=== PATIENT | female | born 1965 | race Caucasian/White ===

== ENCOUNTER → 2020-02-14 13:40 | Outpatient (BNVA) | payer OTHER, SELFPAY | PROVIDERS: PCP Internal Medicine; Referring Provider Internal Medicine; Visit Provider Urology | DX: Z76.89 Persons encountering health services in other specified circumstances (principal) ==

== ENCOUNTER → 2020-09-04 09:52 | Outpatient (BNVA) | payer OTHER, SELFPAY | PROVIDERS: PCP Internal Medicine; Visit Provider Urology | DX: N20.0 Calculus of kidney (principal); N12 Tubulo-interstitial nephritis, not specified as acute or chronic | CPT/HCPCS: 99212 ==

== ENCOUNTER 2021-07-29 14:59 | Emergency (ER) | payer OTHER, SELFPAY ==
--- NOTE | 2021-07-29 | ECG_ITS ---
Test Reason : chest pain Blood Pressure : / mmHG Vent. Rate : 116 BPM Atrial Rate : 116 BPM P-R Int : 154 ms QRS Dur : 092 ms QT Int : 328 ms P-R-T Axes : 065 108 021 degrees QTc Int : 455 ms Sinus tachycardia Possible Left atrial enlargement Rightward axis Incomplete right bundle branch block Cannot rule out Anterior infarct , age undetermined Abnormal ECG When compared with ECG of 30-DEC-2019 20:30, Incomplete right bundle branch block has replaced Right bundle branch block Minimal criteria for Anterior infarct are now Present Referred By: Sumeet Romeo Electronically Signed By:CAREY MCCLURE
--- NOTE | ~2021-07-29 | CT_ITS ---
EXAMINATION: CT HEAD WITHOUT CONTRAST CLINICAL INFORMATION: Blurred vision and weakness. COMPARISON: CT head dated from 09/18/2014. TECHNIQUE: Contiguous axial imaging was performed from the skull base to vertex without intravenous administration of contrast. This CT examination was performed using dose optimization techniques as appropriate, variously including the following: *Automated exposure control *Adjustment of mA and/or kV according to patient size (this includes techniques or standardized protocols for targeted exams where dose is matched to indication/reason for exam; i.e. extremities or head) *Use of iterative reconstruction technique DLP: 718 mGy-cm FINDINGS: There is no evidence of acute intracranial hemorrhage or edematous territorial infarction. There is no abnormal attenuation within the brain parenchyma. Marcum-white matter differentiation is preserved. The ventricles are normal in size and configuration. No evidence for obstructive hydrocephalus. No abnormal mass effect or midline shift. No extra-axial fluid collections. No acute soft tissue or osseous abnormalities. Mucosal thickening of the right sphenoidal sinus and some ethmoid air cells. No air-fluid level. The mastoids and middle ear cavities are clear. CT/CT head/brain wo con IMPRESSION: No evidence of acute intracranial hemorrhage or edematous territorial infarction.
--- NOTE | ~2021-07-29 | XR_ITS ---
EXAMINATION: XR CHEST CLINICAL INFORMATION: Shortness of breath COMPARISON: December 30, 2019 TECHNIQUE: AP portable view of the chest was obtained. FINDINGS: There is a region of discoid atelectasis or scarring seen within the mid left lung. No confluent pneumonitis identified. No pneumothorax or pleural effusion. Heart normal size. No evidence of pulmonary edema. XR/XR chest 1V IMPRESSION: No significant acute parenchymal disease.
[2021-07-29 15:16] VITALS: BP 140/94; PULSE 120; RESP 16; TEMP 36.9; O2SAT 88; BMI 35.2
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
--- NOTE | 2021-07-29 15:52 | ECG_ITS ---
Test Reason : CHEST PAIN Blood Pressure : / mmHG Vent. Rate : 091 BPM Atrial Rate : 091 BPM P-R Int : 192 ms QRS Dur : 098 ms QT Int : 378 ms P-R-T Axes : 051 103 029 degrees QTc Int : 464 ms Normal sinus rhythm Possible Left atrial enlargement Rightward axis Incomplete right bundle branch block Cannot rule out Anterior infarct (cited on or before 29-JUL-2021) Abnormal ECG When compared with ECG of 29-JUL-2021 15:21, No significant change was found Referred By: Steve Contrears Electronically Signed By:CAREY MCCLURE
[2021-07-29 16:26] LABS: Glucose, Whole Blood 115 mg/dL (60-115)
[2021-07-29 16:26] LABS: MANUAL DIFF FLAG NO
[2021-07-29 16:30] LABS: Basophils Absolute Auto 0.1 X10*3/uL (0.0-0.2); Basophils Percent Auto 0.8 % (0-2); Eosinophils Absolute Auto 0.1 X10*3/uL (0.0-0.4); Eosinophils Percent Auto 0.7 % (0-4); Hematocrit 54.3 % (37.0-47.0); Hemoglobin 16.9 g/dl (12.0-16.0); Imm Gran Abs Auto 0.02 X10*3/uL (0.00-0.03); Imm Gran Pct Auto 0.3 % (0.0-0.4); Lymphocytes Absolute Auto 1.4 X10*3/uL (1.2-4.9); Lymphocytes Percent Auto 19.9 % (20-40); Mean Corpuscular HGB Conc 31.1 g/dl (31.0-35.0); Mean Corpuscular Hemoglobin 28.2 pg (27.0-33.0); Mean Corpuscular Volume 90.5 fL (80.0-98.0); Monocytes Absolute Auto 0.3 X10*3/uL (0.1-1.2); Monocytes Percent Auto 3.7 % (2-11); Neutrophils Absolute Auto 5.3 x10*3/uL (2.0-8.3); Neutrophils Percent Auto 74.6 % (45-73); Platelet Count 143 X10*3/uL (160-400); Red Cell Distribution Width 19.7 % (11.0-16.0); White Blood Count 7.1 X10*3/uL (4.8-10.8)
[2021-07-29 16:40] LABS: Ethanol 220 mg/dL
[2021-07-29 16:42] LABS: COVID-19 Test Negative (Negative); IDNOW Serial# 16C4AD1C
[2021-07-29 16:43] LABS: Alanine Aminotransferase 108 U/L (0-31); Albumin Level 3.7 g/dL (3.5-5.0); Alkaline Phosphatase 152 U/L (39-117); Anion Gap 14 (12-20); Aspartate Amino Transferase 290 U/L (5-31); Bilirubin Total 2.4 mg/dL (0.0-1.0); Blood Urea Nitrogen 18 mg/dL (9-16); Calcium 8.7 mg/dL (8.4-10.2); Carbon Dioxide 32 mmol/L (22-29); Chloride 97 mmol/L (96-108); Creatinine Clr Calc Pharmacy 79.1; Estimated Glomerular Filt Rate > 60; Glucose Random 105 mg/dL (60-115); Magnesium 1.7 mg/dL (1.6-2.6); Potassium 4.6 mmol/L (3.3-5.1); Sodium 138 mmol/L (135-145); Total Protein 8.1 g/dL (6.5-8.0)
[2021-07-29 16:45] LABS: Troponin-I High Sensitivity 6.5 ng/L (<3.5-17.0)
[2021-07-29] MEDS: 0.9 % Sodium Chloride 1,000 ML 999 ML IV (17:05)
[2021-07-29 17:19] VITALS: BP 170/94; PULSE 101; RESP 18; TEMP 36.6; O2SAT 94
[2021-07-29] MEDS: amLODIPine Besylate 5 MG TABLET PO (18:41)
[2021-07-29] MEDS: LORazepam 2 MG/ML VIAL 1 MG IVPUSH (18:41)
[2021-07-29 19:17] VITALS: BP 161/86; PULSE 89; RESP 12; TEMP 36.7; O2SAT 90
[2021-07-29 20:06] VITALS: PULSE 98; RESP 14; O2SAT 94
[2021-07-29] MEDS: Albuterol Sulfate (0.083%) 2.5 MG/3 ML VIAL.NEB INHALE (20:06)
[2021-07-29 21:31] LABS: Glucose, Whole Blood 97 mg/dL (60-115)
== END 2021-07-29 22:06 | disposition left against medical advice (07) ==
PROVIDERS: Physician Assistant; Emergency Provider Emergency Medicine; PCP Internal Medicine
DX: R07.89 Other chest pain (principal); T76.11XA Adult physical abuse, suspected, initial encounter; G44.309 Post-traumatic headache, unspecified, not intractable; F10.129 Alcohol abuse with intoxication, unspecified; Y90.7 Blood alcohol level of 200-239 mg/100 ml; Z20.822 Contact with and (suspected) exposure to COVID-19; Z79.899 Other long term (current) drug therapy
CPT/HCPCS: 36415; 70450; 71045; 80053; 82077; 82947; 83735; 84484; 85025; 87635; 93005; 94640; 96361; 96374; 99284; J2060

== ENCOUNTER 2021-09-24 18:29 | Outpatient (REF) | payer OTHER, SELFPAY ==
[2021-09-24 18:39] LABS: Appearance Urine CLEAR; Color Urine YELLOW; Glucose Urine UA NEG (NEG); Leukocyte Esterase Urine TRACE (NEG); Nitrite Urine POS (NEG); PH 5.5 (5.0-8.0); Specific Gravity - Urine <= 1.005 (1.005-1.025); UACC Culture Trigger YES; Urine Blood NEG (NEG); Urine Ketones NEG (NEG); Urine Protein NEG (NEG-TRACE)
[2021-09-24 18:44] LABS: RBC Urine 0 /HPF (0); Squamous Epithelial Cell Urine 1+ /LPF
[2021-09-24 18:45] LABS: Bacteria Urine 3+ /LPF
== END 2021-09-24 18:30 | disposition home or self-care (01) ==
LOC: HO.LNP 18:29
PROVIDERS: Visit Provider Nurse Practitioner Family
DX: I10 Essential (primary) hypertension (principal); I86.8 Varicose veins of other specified sites; N39.0 Urinary tract infection, site not specified; I82.890 Acute embolism and thrombosis of other specified veins
CPT/HCPCS: 81001; 87086; 87088; 87186

== ENCOUNTER 2022-02-01 14:42 | Inpatient (IN) | payer OTHER, SELFPAY ==
--- NOTE | ~2022-02-01 | CT_ITS ---
EXAMINATION: CT SOFT TISSUE NECK WITHOUT CONTRAST CLINICAL INFORMATION: Abnormal exam. Lightheadedness. Headache. Question mass. COMPARISON: CT scan of the head 02/04/2022. TECHNIQUE: Helical imaging was performed in the axial plane with generation of coronal and sagittal reformatted images. This CT examination was performed using dose optimization techniques as appropriate, variously including the following: *Automated exposure control *Adjustment of mA and/or kV according to patient size (this includes techniques or standardized protocols for targeted exams where dose is matched to indication/reason for exam; i.e. extremities or head) *Use of iterative reconstruction technique DLP: 1131 mGy-cm FINDINGS: The diagnostic accuracy of this examination is is somewhat limited due to the absence of intravenous contrast. Pharyngeal mucosal spaces are symmetric. Parapharyngeal and retromaxillary fat is preserved. Army Ranger spaces are symmetric. The parotid and submandibular glands are normal. The tongue base and epiglottis are normal. Preepiglottic fat is preserved. Glottic and subglottic airways are patent. The thyroid gland is normal. The remainder of the visualized visceral soft tissues are normal. There are no pathologically enlarged cervical lymph nodes. No mediastinal or axillary adenopathy is visualized within the [id number] of this examination. Lung apices are clear. There is atheromatous calcification of both carotid bifurcations. Carotid spaces are otherwise unremarkable. There is no acute osseous finding. Specifically no worrisome lytic or blastic osseous lesion. The skull base is intact. No mastoid middle ear effusion. No active paranasal sinus disease. There is a perforation of the membranous nasal septum. Limited visualization of the intracranial anatomy reveals no abnormal finding. CT/CT soft tissue neck wo IV con IMPRESSION: The diagnostic accuracy of this examination is somewhat limited due to the absence of intravenous contrast. There is no identifiable soft tissue mass or adenopathy. Scattered atheromatous calcification involves both carotid bifurcations. 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
--- NOTE | ~2022-02-01 | CT_ITS ---
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 COMPARISON: None TECHNIQUE: Contiguous axial imaging was performed from the skull base to vertex without intravenous administration of contrast. This CT examination was performed using dose optimization techniques as appropriate, variously including the following: *Automated exposure control *Adjustment of mA and/or kV according to patient size (this includes techniques or standardized protocols for targeted exams where dose is matched to indication/reason for exam; i.e. extremities or head) *Use of iterative reconstruction technique DLP: 1131 mGy-cm FINDINGS: There is no acute intra-axial, extra-axial bleed, masses, collection or midline shift. There is no acute infarction in evolution. There is no edema. The lateral ventricles are symmetrical in size and configuration without enlargement. The cortical sulci are symmetrical and normal. Bone windows reveal no calvarial abnormality. Bilateral paranasal sinuses and mastoid air cells are well-aerated. CT/CT head/brain wo IV con IMPRESSION: No acute intracranial process seen.
[2022-02-01 14:47] VITALS: BP 142/86; PULSE 120; O2SAT 16
[2022-02-01 14:50] VITALS: BP 156/99; PULSE 100; RESP 18; TEMP 37.2; O2SAT 95; BMI 25.7
--- NOTE | 2022-02-01 14:55 | ECG_ITS ---
Test Reason : n/v Blood Pressure : / mmHG Vent. Rate : 103 BPM Atrial Rate : 103 BPM P-R Int : 158 ms QRS Dur : 134 ms QT Int : 384 ms P-R-T Axes : 079 099 020 degrees QTc Int : 503 ms Sinus tachycardia Possible Left atrial enlargement Right bundle branch block Abnormal ECG When compared with ECG of 29-JUL-2021 16:04, Right bundle branch block has replaced Incomplete right bundle branch block Minimal criteria for Anterior infarct are no longer Present Referred By: Generic ED Physician Electronically Signed By:ROSENDO MATHIS
[2022-02-01 15:17] LABS: MANUAL DIFF FLAG NO
[2022-02-01 15:19] LABS: Basophils Percent Auto 0.4 % (0-2); Eosinophils Percent Auto 0.3 % (0-4); Hemoglobin 15.1 g/dl (12.0-16.0); Imm Gran Abs Auto 0.03 X10*3/uL (0.00-0.03); Imm Gran Pct Auto 0.4 % (0.0-0.4); Lymphocytes Absolute Auto 1.3 X10*3/uL (1.2-4.9); Lymphocytes Percent Auto 18.8 % (20-40); Mean Corpuscular HGB Conc 31.5 g/dl (31.0-35.0); Mean Corpuscular Hemoglobin 26.7 pg (27.0-33.0); Mean Platelet Volume 10.2 fL (9.4-12.3); Monocytes Absolute Auto 0.3 X10*3/uL (0.1-1.2); Monocytes Percent Auto 4.8 % (2-11); Neutrophils Absolute Auto 5.3 x10*3/uL (2.0-8.3); Neutrophils Percent Auto 75.3 % (45-73); Platelet Count 174 X10*3/uL (160-400); Red Blood Count 5.65 X10*6/uL (4.20-5.50); Red Cell Distribution Width 17.2 % (11.0-16.0); White Blood Count 7.1 X10*3/uL (4.8-10.8)
[2022-02-01 15:32] LABS: Ethanol < 10 mg/dL
[2022-02-01 15:35] LABS: Alanine Aminotransferase 19 U/L (0-31); Albumin Level 4.4 g/dL (3.5-5.0); Alkaline Phosphatase 90 U/L (39-117); Anion Gap 18 (12-20); Aspartate Amino Transferase 21 U/L (5-31); Bilirubin Direct 0.3 mg/dL (0.0-0.5); Bilirubin Total 0.9 mg/dL (0.0-1.0); Blood Urea Nitrogen 10 mg/dL (9-16); Calcium 10.1 mg/dL (8.4-10.2); Carbon Dioxide 30 mmol/L (22-29); Chloride 92 mmol/L (96-108); Creatinine Clr Calc Pharmacy 69.6; Estimated Glomerular Filt Rate > 60; Glucose Random 130 mg/dL (60-115); Lipase 7 U/L (8-78); Potassium 3.9 mmol/L (3.3-5.1); Sodium 136 mmol/L (135-145); Total Protein 8.1 g/dL (6.5-8.0)
[2022-02-01 15:38] LABS: Troponin-I High Sensitivity 4.1 ng/L (<3.5-17.0)
[2022-02-01 15:52] LABS: COVID-19 Test Negative (Negative); IDNOW Serial# 9DB6401D
[2022-02-01 20:22] VITALS: BP 172/96; PULSE 84; RESP 18; TEMP 36.1; O2SAT 96
--- NOTE | 2022-02-01 21:34 | ED.ABDPAIN ---
HPI - Abdominal Pain General Chief Complaint: Abdominal Pain Stated Complaint: NAUSEA,VOMITING,DIZZY,SOB PER EMS Time Seen by Provider: 02/01/22 21:30 Source: patient History of Present Illness HPI narrative: Patient with severe anxiety multiple ED visits for nausea vomiting abdominal pain was at [facility] 3 days ago comes here with increased anxiety complaining of same nausea and vomiting says that is because of anxiety she gets problems and she feels her anxiety causing this problem as was told in the past with multiple workups after arrival patient says she does not feel safe to go home and would like to see therapist no fever no urinary complaint Related Data Home Medications Medication Instructions Recorded Confirmed lorazepam 2 mg tablet 2 mg PO BID PRN anxiety attack 09/24/21 09/24/21 pantoprazole 40 mg tablet,delayed 40 mg PO DAILY 09/24/21 09/24/21 release Previous Rx's Medication Instructions Recorded albuterol sulfate 2.5 mg/3 mL 2.5 mg (3 mL) inhalation Q4-6H PRN 10/04/20 (0.083 %) solution for nebulization shortness of breath or wheezing 30 days #180 mL Oxygen Home Use #1 ea 11/26/20 miscellaneous medical supply 12 ea miscellaneous .COMPLEX #12 ea 11/26/20 gabapentin 800 mg tablet 800 mg PO TID #90 tabs 09/12/21 ondansetron 4 mg disintegrating 4 mg PO Q8H PRN nausea and 09/22/21 tablet vomiting #30 tabs nebulizers (Altera Nebulizer #1 ea 09/28/21 System) pulse oximeter #1 ea 09/28/21 levofloxacin 750 mg tablet 750 mg PO DAILY 5 days #5 tabs 09/30/21 cane #1 ea 10/16/21 ipratropium 0.5 mg-albuterol 3 mg 3 ml inhalation Q4H PRN shortness 10/27/21 (2.5 mg base)/3 mL nebulization of breath or wheezing 30 days #360 soln mL sulfamethoxazole 800 1 tab PO BID #10 tabs 10/27/21 mg-trimethoprim 160 mg tablet (Bactrim DS) amlodipine 5 mg tablet 5 mg PO DAILY #30 tabs 11/04/21 aspirin 81 mg tablet,delayed 81 mg PO DAILY #30 tabs 11/04/21 release ergocalciferol (vitamin D2) 1,250 1,250 mcg PO QWEEK 4 weeks #4 caps 11/04/21 mcg (50,000 unit) capsule nicotine 21 mg/24 hr daily 1 patch transdermal DAILY #28 ea 11/17/21 transdermal patch sulfamethoxazole 800 1 tab PO BID 3 days #6 tabs 01/09/22 mg-trimethoprim 160 mg tablet (Bactrim DS) mirtazapine 15 mg tablet 7.5 mg PO BEDTIME #90 tabs 01/19/22 albuterol sulfate 90 mcg/actuation 2 puff PO Q4H PRN for wheezing 01/21/22 aerosol inhaler (ProAir HFA) #8.5 ea albuterol sulfate 90 mcg/actuation 2 puff inhalation Q4H PRN 01/27/22 aerosol inhaler bronchospasm #18 grams Allergies Allergy/AdvReac Type Severity Reaction Status Date / Time acetaminophen [Vicodin] Allergy Unknown Unknown Verified 09/24/21 15:13 hydrocodone [Vicodin] Allergy Unknown Unknown Verified 09/24/21 15:13 sumatriptan [From IMITREX] Allergy Unknown VOMITING,RA Verified 09/24/21 15:13 Review of Systems Review of Systems Yes all other systems are reviewed and are negative [facility] Past Medical History Medical History Anxiety COPD (chronic obstructive pulmonary disease) Depression Diabetes Hypertension Surgical History H/O wrist surgery Family History Family History Father No problems noted. Mother Diabetes Social History Social History Housing: Apartment Alcohol intake: current Alcohol intake frequency: a few times a month Patient Tobacco Use Status: Current everyday Tobacco user Tobacco use type: Cigarette Cigarettes Per Day: 3 Smoked in Last 30 Days: Yes e-Cigarette/Vaping Use: Never Used Second Hand Smoke Exposure: No Use of substances other than those prescribed or required for medical reasons: No Advance Directives: No Advance Directives Information Provided: No service: No Current occupational status: disabled Cognitive needs: No Hearing needs: No Vision needs: No Physical Exam ED Vital Signs: Vital Signs - 24 hr 02/01/22 14:50 02/01/22 20:22 02/01/22 22:43 Temperature 98.9 F 96.9 F 97.5 F Pulse Rate 100 84 106 H Respiratory Rate 18 18 20 Blood Pressure 156/99 H 172/96 H 152/97 H Pulse Oximetry 95 96 97 Oxygen Delivery Method Room Air Room Air Room Air 02/02/22 00:05 Temperature 98.3 F Pulse Rate 73 Respiratory Rate 15 Blood Pressure 150/73 H Pulse Oximetry 91 L Oxygen Delivery Method Room Air BMI result Body Mass Index 25.7 Appearance: Alert. Oriented X3. No acute distress. Anxious Eyes: PERRLA, No Nystagmus ENT: Pharynx normal. Oral Mucosa moist Neck: Normal inspection. Neck supple. CVS: Normal heart rate and rhythm. Pulses normal. Respiratory: No respiratory distress. Equal air entry bilateral, no wheezing/rales/rhonchi Abdomen: Soft and nontender. Bowel sounds are present, no mass palpable, no CVA tenderness Skin: Skin warm and dry. Normal skin color. Normal skin turgor. Extremities: No lower extremity edema. No calf tenderness psych: Patient very anxious does not feel safe at home , feels suicidal without any plan no hallucinations or delusions Neuro: Oriented X 3. No motor deficit. No sensory deficit.No cerebellar signs , cranial nerves II-XII intact MDM - Abdominal Pain MDM Narrative Medical decision making narrative: 1 am Patient with multiple complaints very anxious asking for help feels suicidal at home we will get care team to evaluate the patient. Urine positive for cocaine and THC Lab Data Attestation: I reviewed the patient's lab results. Result diagrams: 02/01/22 15:11 02/01/22 15:11 Labs: Lab Results 02/01/22 02/01/22 02/01/22 Range/Units 15:11 15:11 15:11 WBC 7.1 (4.8-10.8) X10*3/uL RBC 5.65 H (4.20-5.50) X10*6/uL Hgb 15.1 (12.0-16.0) g/dl Hct 48.0 H (37.0-47.0) % MCV 85.0 (80.0-98.0) fL MCH 26.7 L (27.0-33.0) pg MCHC 31.5 (31.0-35.0) g/dl RDW 17.2 H (11.0-16.0) % Plt Count 174 (160-400) X10*3/uL MPV 10.2 (9.4-12.3) fL Immature Gran % (Auto) 0.4 (0.0-0.4) % Neut % (Auto) 75.3 H (45-73) % Lymph % (Auto) 18.8 L (20-40) % [place] % (Auto) 4.8 (2-11) % Eos % (Auto) 0.3 (0-4) % Baso % (Auto) 0.4 (0-2) % Lymph # (Auto) 1.3 (1.2-4.9) X10*3/uL [place] # (Auto) 0.3 (0.1-1.2) X10*3/uL Eos # (Auto) 0.0 (0.0-0.4) X10*3/uL Baso # (Auto) 0.0 (0.0-0.2) X10*3/uL Abs Immat Gran (auto) 0.03 (0.00-0.03) X10*3/uL Absolute Neuts (auto) 5.3 (2.0-8.3) x10*3/uL Absolute Nucleated RBC 0.000 (0.0-0.012) X10*3/uL Nucleated RBC % (auto) 0.0 (0.0-0.2) /100WBC Sodium 136 (135-145) mmol/L Potassium 3.9 (3.3-5.1) mmol/L Chloride 92 L (96-108) mmol/L Carbon Dioxide 30 H (22-29) mmol/L Anion Gap 18 (12-20) BUN 10 (9-16) mg/dL Creatinine 0.76 (0.5-1.4) mg/dL Estim Creat Clear Calc 69.6 Estimated GFR > 60 Random Glucose 130 H (60-115) mg/dL Calcium 10.1 D (8.4-10.2) mg/dL Total Bilirubin 0.9 (0.0-1.0) mg/dL Direct Bilirubin 0.3 (0.0-0.5) mg/dL AST 21 D (5-31) U/L ALT 19 (0-31) U/L Alkaline Phosphatase 90 D (39-117) U/L Troponin I High Sens (<3.5-17.0) ng/L Total Protein 8.1 H (6.5-8.0) g/dL Albumin 4.4 (3.5-5.0) g/dL Lipase 7 L (8-78) U/L Urine Color Urine Appearance Urine pH (5.0-9.0) Ur Specific [place] (1.005-1.025) Urine Protein (Neg-Trace) mg/dL Urine Glucose (UA) (Negative) mg/dL Urine Ketones (Negative) mg/dL Urine Blood (Negative) Urine Nitrite (Negative) Ur Leukocyte Esterase (Negative) Urine RBC (0-2) /HPF Urine WBC (0-5) /HPF Ur Squamous Epith Cells (0-2) /HPF Urine Bacteria (None Seen) Hyaline Casts (0-2) /LPF Urine Opiates Screen (Not Detect) Urine Fentanyl Screen (Not Detect) Ur Barbiturates Screen (Not Detect) Ur Phencyclidine Scrn (Not Detect) Ur Amphetamines Screen (Not Detect) U Benzodiazepines Scrn (Not Detect) Urine Cocaine Screen (Not Detect) U Marijuana (THC) Screen (Not Detect) Ethyl Alcohol mg/dL COVID-19 ([facility]STIAN) Negative (Negative) COVID-19 Clin Com See Note 02/01/22 02/01/22 02/01/22 Range/Units 15:11 15:11 22:58 WBC (4.8-10.8) X10*3/uL RBC (4.20-5.50) X10*6/uL Hgb (12.0-16.0) g/dl Hct (37.0-47.0) % MCV (80.0-98.0) fL MCH (27.0-33.0) pg MCHC (31.0-35.0) g/dl RDW (11.0-16.0) % Plt Count (160-400) X10*3/uL MPV (9.4-12.3) fL Immature Gran % (Auto) (0.0-0.4) % Neut % (Auto) (45-73) % Lymph % (Auto) (20-40) % [place] % (Auto) (2-11) % Eos % (Auto) (0-4) % Baso % (Auto) (0-2) % Lymph # (Auto) (1.2-4.9) X10*3/uL [place] # (Auto) (0.1-1.2) X10*3/uL Eos # (Auto) (0.0-0.4) X10*3/uL Baso # (Auto) (0.0-0.2) X10*3/uL Abs Immat Gran (auto) (0.00-0.03) X10*3/uL Absolute Neuts (auto) (2.0-8.3) x10*3/uL Absolute Nucleated RBC (0.0-0.012) X10*3/uL Nucleated RBC % (auto) (0.0-0.2) /100WBC Sodium (135-145) mmol/L Potassium (3.3-5.1) mmol/L Chloride (96-108) mmol/L Carbon Dioxide (22-29) mmol/L Anion Gap (12-20) BUN (9-16) mg/dL Creatinine (0.5-1.4) mg/dL Estim Creat Clear Calc Estimated GFR Random Glucose (60-115) mg/dL Calcium (8.4-10.2) mg/dL Total Bilirubin (0.0-1.0) mg/dL Direct Bilirubin (0.0-0.5) mg/dL AST (5-31) U/L ALT (0-31) U/L Alkaline Phosphatase (39-117) U/L Troponin I High Sens 4.1 (<3.5-17.0) ng/L Total Protein (6.5-8.0) g/dL Albumin (3.5-5.0) g/dL Lipase (8-78) U/L Urine Color Yellow Urine Appearance Clear Urine pH 6.0 (5.0-9.0) Ur Specific [place] 1.015 (1.005-1.025) Urine Protein Negative (Neg-Trace) mg/dL Urine Glucose (UA) Negative (Negative) mg/dL Urine Ketones Trace (Negative) mg/dL Urine Blood Negative (Negative) Urine Nitrite Negative (Negative) Ur Leukocyte Esterase Trace H (Negative) Urine RBC 0-2 (0-2) /HPF Urine WBC 0-5 (0-5) /HPF Ur Squamous Epith Cells 6-10 (0-2) /HPF Urine Bacteria None Seen (None Seen) Hyaline Casts 0-2 (0-2) /LPF Urine Opiates Screen (Not Detect) Urine Fentanyl Screen (Not Detect) Ur Barbiturates Screen (Not Detect) Ur Phencyclidine Scrn (Not Detect) Ur Amphetamines Screen (Not Detect) U Benzodiazepines Scrn (Not Detect) Urine Cocaine Screen (Not Detect) U Marijuana (THC) Screen (Not Detect) Ethyl Alcohol < 10 mg/dL COVID-19 ([facility]) (Negative) COVID-19 Clin Com 02/01/22 Range/Units 22:58 WBC (4.8-10.8) X10*3/uL RBC (4.20-5.50) X10*6/uL Hgb (12.0-16.0) g/dl Hct (37.0-47.0) % MCV (80.0-98.0) fL MCH (27.0-33.0) pg MCHC (31.0-35.0) g/dl RDW (11.0-16.0) % Plt Count (160-400) X10*3/uL MPV (9.4-12.3) fL Immature Gran % (Auto) (0.0-0.4) % Neut % (Auto) (45-73) % Lymph % (Auto) (20-40) % [place] % (Auto) (2-11) % Eos % (Auto) (0-4) % Baso % (Auto) (0-2) % Lymph # (Auto) (1.2-4.9) X10*3/uL [place] # (Auto) (0.1-1.2) X10*3/uL Eos # (Auto) (0.0-0.4) X10*3/uL Baso # (Auto) (0.0-0.2) X10*3/uL Abs Immat Gran (auto) (0.00-0.03) X10*3/uL Absolute Neuts (auto) (2.0-8.3) x10*3/uL Absolute Nucleated RBC (0.0-0.012) X10*3/uL Nucleated RBC % (auto) (0.0-0.2) /100WBC Sodium (135-145) mmol/L Potassium (3.3-5.1) mmol/L Chloride (96-108) mmol/L Carbon Dioxide (22-29) mmol/L Anion Gap (12-20) BUN (9-16) mg/dL Creatinine (0.5-1.4) mg/dL Estim Creat Clear Calc Estimated GFR Random Glucose (60-115) mg/dL Calcium (8.4-10.2) mg/dL Total Bilirubin (0.0-1.0) mg/dL Direct Bilirubin (0.0-0.5) mg/dL AST (5-31) U/L ALT (0-31) U/L Alkaline Phosphatase (39-117) U/L Troponin I High Sens (<3.5-17.0) ng/L Total Protein (6.5-8.0) g/dL Albumin (3.5-5.0) g/dL Lipase (8-78) U/L Urine Color Urine Appearance Urine pH (5.0-9.0) Ur Specific [place] (1.005-1.025) Urine Protein (Neg-Trace) mg/dL Urine Glucose (UA) (Negative) mg/dL Urine Ketones (Negative) mg/dL Urine Blood (Negative) Urine Nitrite (Negative) Ur Leukocyte Esterase (Negative) Urine RBC (0-2) /HPF Urine WBC (0-5) /HPF Ur Squamous Epith Cells (0-2) /HPF Urine Bacteria (None Seen) Hyaline Casts (0-2) /LPF Urine Opiates Screen Not Detected (Not Detect) Urine Fentanyl Screen POSITIVE H (Not Detect) Ur Barbiturates Screen Not Detected (Not Detect) Ur Phencyclidine Scrn Not Detected (Not Detect) Ur Amphetamines Screen Not Detected (Not Detect) U Benzodiazepines Scrn Not Detected (Not Detect) Urine Cocaine Screen POSITIVE H (Not Detect) U Marijuana (THC) Screen POSITIVE H (Not Detect) Ethyl Alcohol mg/dL COVID-19 ([facility]STIAN) (Negative) COVID-19 Clin Com Discharge Plan Discharge Clinical Impression: Anxiety, Cocaine abuse, Feeling suicidal Patient Disposition: Still a Patient Prescriptions: No Action albuterol sulfate 2.5 mg /3 mL (0.083 %) solution for nebulization 2.5 mg inhalation Q4-6H PRN (Reason: shortness of breath or wheezing) 30 Days Qty: 180 0RF gabapentin 800 mg tablet 800 mg PO TID Qty: 90 8RF ondansetron 4 mg tablet,disintegrating 4 mg PO Q8H PRN (Reason: nausea and vomiting) Qty: 30 0RF Hold Instructions: on levofloxacin levofloxacin 750 mg tablet 750 mg PO DAILY 5 Days Qty: 5 0RF (DME) cane Device See Rx Instructions .Route Qty: 1 0RF Rx Instructions: As directed sulfamethoxazole-trimethoprim [Bactrim DS] 800-160 mg tablet 1 tab PO BID Qty: 10 0RF ipratropium-albuterol 0.5 mg-3 mg(2.5 mg base)/3 mL solution for nebulization 3 ml inhalation Q4H PRN (Reason: shortness of breath or wheezing) 30 Days Qty: 360 3RF ergocalciferol (vitamin D2) 1,250 mcg (50,000 unit) capsule 1,250 mcg PO QWEEK 28 Days Qty: 4 7RF amlodipine 5 mg tablet 5 mg PO DAILY Qty: 30 7RF aspirin 81 mg tablet,delayed release (DR/EC) 81 mg PO DAILY Qty: 30 7RF nicotine 21 mg/24 hr patch 24 hour 1 patch transdermal DAILY Qty: 28 8RF sulfamethoxazole-trimethoprim [Bactrim DS] 800-160 mg tablet 1 tab PO BID 3 Days Qty: 6 0RF mirtazapine 15 mg tablet 7.5 mg PO BEDTIME Qty: 90 8RF albuterol sulfate [ProAir HFA] 90 mcg/actuation HFA aerosol inhaler 2 puff PO Q4H PRN (Reason: for wheezing) Qty: 8.5 2RF albuterol sulfate 90 mcg/actuation HFA aerosol inhaler 2 puff inhalation Q4H PRN (Reason: bronchospasm) Qty: 18 7RF miscellaneous medical supply Misc 12 ea miscellaneous .COMPLEX Qty: 12 0RF Rx Instructions: 12 ea miscellaneous nasal canula and tubing for oxygen; (DME) Oxygen Home Use Kit See Rx Instructions .ROUTE .MEDSUPPLY Qty: 1 12RF Rx Instructions: 2L nasal cannula continuous pantoprazole 40 mg tablet,delayed release (DR/EC) 40 mg PO DAILY lorazepam 2 mg tablet 2 mg PO BID PRN (Reason: anxiety attack) (DME) pulse oximeter See Rx Instructions .Route .MEDSUPPLY Qty: 1 0RF Rx Instructions: As directed (DME) Altera Nebulizer System Misc See Rx Instructions .Route Qty: 1 0RF Rx Instructions: As directed
[2022-02-01 22:43] VITALS: BP 152/97; PULSE 106; RESP 20; TEMP 36.4; O2SAT 97
[2022-02-01] MEDS: LORazepam 1 MG TABLET 2 MG PO (22:45)
[2022-02-01] MEDS: Ondansetron ODT 4 MG TAB.RAPDIS TRANSLINGU (22:45)
[2022-02-01 23:06] LABS: Appearance Urine Clear; Color Urine Yellow; Glucose Urine UA Negative (Negative); Leukocyte Esterase Urine Trace (Negative); Nitrite Urine Negative (Negative); Specific Gravity - Urine 1.015 (1.005-1.025); UMIC TRIGGER UACC YES; Urine Blood Negative (Negative); Urine Ketones Trace mg/dL (Negative); Urine Protein Negative (Neg-Trace)
[2022-02-01 23:11] LABS: Bacteria Urine None Seen (None Seen); Hyaline Casts Urine 0-2 /LPF (0-2); RBC Urine 0-2 /HPF (0-2); WBC Urine 0-5 /HPF (0-5)
[2022-02-01 23:27] LABS: Amphetamine Screen Urine Not Detected (Not Detect); Barbiturates, Urine Not Detected (Not Detect); Benzodiazepines Screen Urine Not Detected (Not Detect); Cannabinoid Screen Urine POSITIVE (Not Detect); Cocaine Screen Urine POSITIVE (Not Detect); Fentanyl, urine POSITIVE (Not Detect); Opiate Screen Urine Not Detected (Not Detect); Phencyclidine Screen Urine Not Detected (Not Detect)
[2022-02-02] VITALS (10 sets, daily range): BP systolic 93–150; BP diastolic 52–80; PULSE 70–85; RESP 14–18; TEMP 36.4–37.1; O2SAT 91–98
--- NOTE | 2022-02-02 00:03 | PC.NURSE ---
Reports nausea has resolved. Given PO fluids at this time.
--- NOTE | 2022-02-02 01:28 | PC.NURSE ---
Pt. sleeping in hallway bed. No distress noted. Respirations even and unlabored.
--- NOTE | 2022-02-02 02:10 | PC.NURSE ---
Eating chris crackers denies abd pain at this time. Patient now stating she wears O2 at all times. Sat was 88% on room. Placed on 2L now 96%.
--- NOTE | 2022-02-02 03:21 | MHC.CARE ---
BHN smart sheet completed
--- NOTE | 2022-02-02 06:09 | PC.NURSE ---
Pt. c/o nausea. Spoke with provider and reglan ordered. It is not in the pyxis. Called pharmacy and they will bring it down. Pt. sitting in bed in hallway.
[2022-02-02] MEDS: Metoclopramide HCl 5 MG TABLET PO (06:47)
--- NOTE | 2022-02-02 07:45 | HE.PHANOTE ---
METHADONE FORM RECEIVED, LAST DOSE 130MG 547 AM 02/01
[2022-02-02] MEDS: methADONE HCl 20 MG/2 ML ORAL.CONC 130 MG PO (08:10)
--- NOTE | 2022-02-02 09:59 | PC.NURSE ---
pharmacist at bedside at this time.
--- NOTE | 2022-02-02 10:03 | PHA.MEDREC ---
Pharmacy Consult ? Medication Reconciliation Pharmacy has completed the medication reconciliation. Patient is poor historian and demonstrates even poorer adherence. She states she has an issue with getting a psychiatrist which is why venlafaxine, mirtazpine and lorazepam and showed low PDC. Thanks Brad
[2022-02-02] MEDS: Gabapentin 400 MG CAPSULE 800 MG PO ×2 (14:41→20:03)
[2022-02-02] MEDS: amLODIPine Besylate 5 MG TABLET PO (14:42)
[2022-02-02] MEDS: Aspirin Enteric Coated 81 MG TABLET.DR PO (14:42)
[2022-02-02] MEDS: Nicotine 21 MG PATCH.TD24 TRANSDERMA (14:43)
[2022-02-02] MEDS: Venlafaxine HCl ER 37.5 MG CAP.ER.24H PO (15:39)
[2022-02-02] MEDS: Ergocalciferol (Vitamin D2) 1,250 MCG CAPSULE 1250 MCG PO (15:39)
[2022-02-02] MEDS: Albuterol Sulfate 90 MCG 8 GM INHALER 2 PUFF INHALE (19:42)
[2022-02-02] MEDS: Mirtazapine 15 MG TABLET PO (20:03)
[2022-02-02] MEDS: LORazepam 1 MG TABLET 2 MG PO (20:04)
--- NOTE | 2022-02-02 22:40 | PC.NURSE ---
Attempted to call report. RN not able to come to phone right now...will call back. (Alanna VALLEJO)
--- NOTE | 2022-02-02 23:08 | PC.NURSE ---
Report to Arlene VALLEJO on M3
--- NOTE | 2022-02-03 | ECG_ITS ---
Test Reason : cardiac Sx Blood Pressure : / mmHG Vent. Rate : 073 BPM Atrial Rate : 073 BPM P-R Int : 154 ms QRS Dur : 092 ms QT Int : 412 ms P-R-T Axes : 020 069 053 degrees QTc Int : 453 ms Normal sinus rhythm Incomplete right bundle branch block Borderline ECG When compared with ECG of 01-FEB-2022 15:00, Incomplete right bundle branch block has replaced Right bundle branch block Heart rate has decreased Referred By: Marcos Chiu Electronically Signed By:ROSENDO MATHIS
--- NOTE | 2022-02-03 04:24 | PC.ADMIT ---
Patient is 56 year old female cisgender who presented to [facility] ED d/t feeling suicidal as a result of anxiety and depression. Patient admitted to unit via WC. Diagnosis of Unspecified depressive disorder and Unspecified anxiety disorder. Patient signed Conditional Voluntary for admission. Patient alert and oriented x4. Presents as pleasant and cooperative but anxious. Good eye contact. Dressed in hospital attire. Reports anxiety, depressed mood and inability to care for herself. Patient states, I never follow through on things, I know I need help. Patient reports due to missed appointments Psychiatrist will no longer work with her. Never leaves the home and is isolated with minimal support. Patient reports not taking care of hygiene. Reported multiple falls in the last 6 months. Patient uses cane at home.Per medical records patient has HX OF COPD, Cirrhosis, HTN. Patient uses O2 at 2 L cont. via nasal cannula. Per [facility] crisis patient reported suicidal ideation without a plan. Patient stated to that she doesn't feel safe on her own. Appetite and sleep are poor. Tox screen positive for Fentanyl, Cocaine and Cannabis. Patient reports after having been sober for 20+ years she started drinking again approximately 2months ago. She admits to drinking 30 fireballs per day. Patient also reports daily marijuana use to help her relax and increase her appetite. Patient also reports cocaine use. Patient does not appear to be in active withdrawal. Reports smoking 5 cigarettes per day while wearing patch. Patient utilizes [employer] support through [facility]. Is able to ambulate independently however c/o weakness and states she uses cane at home. Patient is utilzing O2 concentrator in room as well as recliner for sleep. On 1:1 for Equipment Obs. Patient oriented to unit, signed NANCY's, participated in admission process and placed on unit checks.
[2022-02-03] MEDS: Omeprazole 40 MG CAPSULE.DR PO (07:08)
[2022-02-03] MEDS: Gabapentin 400 MG CAPSULE 800 MG PO ×2 (08:51→15:22)
[2022-02-03] MEDS: amLODIPine Besylate 5 MG TABLET PO (08:51)
[2022-02-03] MEDS: Aspirin Enteric Coated 81 MG TABLET.DR PO (08:51)
[2022-02-03] MEDS: Venlafaxine HCl ER 37.5 MG CAP.ER.24H PO (08:51)
[2022-02-03] MEDS: methADONE HCl 20 MG/2 ML ORAL.CONC 130 MG PO (08:52)
[2022-02-03 09:27] VITALS: BP 135/64; PULSE 81; TEMP 36.6; O2SAT 95
[2022-02-03 09:34] LABS: Estimated Average Glucose 143 mg/dL; Hemoglobin A1c % 6.6 %
[2022-02-03 10:18] LABS: Cholesterol 156 mg/dL; HDL Cholesterol 39 mg/dL; LDL Cholesterol Calculated 92 mg/dl; Magnesium 1.7 mg/dL (1.6-2.6); Triglycerides 126 mg/dL
[2022-02-03 10:41] LABS: Free T4 (Free Thyroxine) 0.94 ng/dL (0.71-1.85); Thyroid Stimulating Hormone 1.91 uIU/mL (0.32-4.0)
[2022-02-03] MEDS: Nicotine 21 MG PATCH.TD24 TRANSDERMA (10:41)
[2022-02-03 10:53] LABS: Folate 9.9 ng/mL (> or = 4.0); Vitamin B12 235 pg/mL (200-900)
[2022-02-03] MEDS: LORazepam 1 MG TABLET 2 MG PO ×2 (13:05→21:54)
[2022-02-03 14:02] VITALS: BMI 25.7
[2022-02-03 14:45] VITALS: BP 117/70; PULSE 81; RESP 16; TEMP 35.9; O2SAT 94
[2022-02-03 14:56] LABS: Glucose, Whole Blood 152 mg/dL (60-115)
--- NOTE | 2022-02-03 15:15 | MHC.CLN ---
NUTRITION REVIEW OF WEIGHT HX SHOWS PATIENT WITH 24% WEIGHT LOSS X 6 MONTHS. BECAME WEEPY WHEN ASKED ABOUT WEIGHT LOSS. SITTER IN ROOM. ASKED FOR VANILLA ENSURE BID. PROVIDES ADDITIONAL 700 KCALS, 40 G PROTEIN. REPORTS RECENT POOR APPETITE. ALCOHOL AND SUBSTANCE ABUSE LIKELY CONTRIBUTORS TO WEIGHT LOSS. FOLLOW FOR INTAKE AND WEIGHT. SEE CLINICAL NUTRITION ASSESSMENT.
[2022-02-03 15:59] VITALS: BP 135/66; PULSE 71; RESP 16; TEMP 36.6; O2SAT 93
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
[2022-02-03 19:20] LABS: MANUAL DIFF FLAG NO
[2022-02-03 19:24] LABS: Basophils Percent Auto 0.6 % (0-2); Eosinophils Absolute Auto 0.1 X10*3/uL (0.0-0.4); Eosinophils Percent Auto 1.6 % (0-4); Hematocrit 40.8 % (37.0-47.0); Hemoglobin 12.4 g/dl (12.0-16.0); Imm Gran Abs Auto 0.02 X10*3/uL (0.00-0.03); Imm Gran Pct Auto 0.3 % (0.0-0.4); Lymphocytes Absolute Auto 2.5 X10*3/uL (1.2-4.9); Lymphocytes Percent Auto 39.4 % (20-40); Mean Corpuscular HGB Conc 30.4 g/dl (31.0-35.0); Mean Corpuscular Volume 88.9 fL (80.0-98.0); Mean Platelet Volume 10.2 fL (9.4-12.3); Monocytes Absolute Auto 0.6 X10*3/uL (0.1-1.2); Monocytes Percent Auto 8.8 % (2-11); Neutrophils Absolute Auto 3.1 x10*3/uL (2.0-8.3); Neutrophils Percent Auto 49.3 % (45-73); Platelet Count 155 X10*3/uL (160-400); Red Blood Count 4.59 X10*6/uL (4.20-5.50); Red Cell Distribution Width 17.2 % (11.0-16.0); White Blood Count 6.3 X10*3/uL (4.8-10.8)
--- NOTE | 2022-02-03 19:30 | PC.NURSE ---
At approx 1445 pt requested to see nursing for c/o dizziness. T/W obtained pt's vs, BP 117/70,P 81, T 96.6, 02 Sat 94%. Pt was A&O x3, speech clear, grasp equal. Pt denied chest pain or SOB. MD notified and pt was monitored. Pt reported another dizzy spell at 1600 BP 135/66, p71 02 Sat 93% , 97.3. MD notified EKG and hospital consult ordered. EKG completed and forwarded to MD Consult completed, labs ordered and Head CT ordered for 02/04/22.
[2022-02-03 19:54] LABS: Alanine Aminotransferase 11 U/L (0-31); Albumin Level 3.8 g/dL (3.5-5.0); Alkaline Phosphatase 63 U/L (39-117); Anion Gap 11 (12-20); Aspartate Amino Transferase 11 U/L (5-31); Bilirubin Total 0.3 mg/dL (0.0-1.0); Blood Urea Nitrogen 22 mg/dL (9-16); Calcium 8.9 mg/dL (8.4-10.2); Carbon Dioxide 36 mmol/L (22-29); Chloride 98 mmol/L (96-108); Creatinine Clr Calc Pharmacy 51.9; Estimated Glomerular Filt Rate 56; Glucose Random 190 mg/dL (60-115); Potassium 4.7 mmol/L (3.3-5.1); Sodium 140 mmol/L (135-145); Total Protein 6.5 g/dL (6.5-8.0)
[2022-02-03 21:30] VITALS: BP 135/76; PULSE 70; RESP 18; TEMP 36.2; O2SAT 94
[2022-02-03] MEDS: Prazosin HCL 1 MG CAPSULE PO (21:43)
[2022-02-03] MEDS: Mirtazapine 30 MG TABLET PO (21:43)
[2022-02-03] MEDS: Gabapentin 300 MG CAPSULE 900 MG PO (21:43)
[2022-02-03] MEDS: Albuterol Sulfate 90 MCG 8 GM INHALER 2 PUFF INHALE (21:57)
[2022-02-04] MEDS: Albuterol Sulfate 90 MCG 8 GM INHALER 2 PUFF INHALE ×3 (08:03→23:47)
[2022-02-04] MEDS: Omeprazole 40 MG CAPSULE.DR PO (08:26)
[2022-02-04] MEDS: amLODIPine Besylate 5 MG TABLET PO (08:26)
[2022-02-04] MEDS: Nicotine 21 MG PATCH.TD24 TRANSDERMA (08:27)
[2022-02-04] MEDS: hydrOXYzine HCL 25 MG TABLET PO (08:27)
[2022-02-04] MEDS: Fluticasone/Vilanterol 100/25 BLST.W.DEV 1 PUFF INHALE (08:27)
[2022-02-04] MEDS: Gabapentin 300 MG CAPSULE 900 MG PO ×3 (08:27→22:03)
[2022-02-04] MEDS: Aspirin Enteric Coated 81 MG TABLET.DR PO (08:27)
[2022-02-04] MEDS: Venlafaxine HCl ER 37.5 MG CAP.ER.24H PO (08:28)
[2022-02-04] MEDS: methADONE HCl 20 MG/2 ML ORAL.CONC 130 MG PO (08:29)
[2022-02-04 08:52] VITALS: BP 120/77; PULSE 76; RESP 16; TEMP 36.7; O2SAT 94
[2022-02-04 10:25] LABS: Appearance Urine Clear; Color Urine Yellow; Glucose Urine UA Negative (Negative); Leukocyte Esterase Urine Negative (Negative); Nitrite Urine Negative (Negative); PH 5.5 (5.0-9.0); Urine Blood Negative (Negative); Urine Ketones Negative (Negative); Urine Protein Negative (Neg-Trace)
[2022-02-04] MEDS: LORazepam 1 MG TABLET 2 MG PO ×2 (12:00→22:03)
--- NOTE | 2022-02-04 14:31 | HO.PSYCHPN ---
Subjective Subjective Date of Service: 02/04/22 Reason For Visit: anxiety Subjective Notes: Conditional Voluntary Interim History: Pt reports feeling very anxious, not knowing source of anxiety as she has sufficient medications. SHe denies SI/HI. Minimal insight into effects of substance use on mood and ability to function. on one to one due to oxygen. Medication Compliance: Yes Review of Systems Review of Systems General: +sweats, +unintentional WL, +malaise, +anorexia. No fevers HEENT: No blurred vision, diplopia Cardiovascular: No chest pain, palpitations, or leg edema Respiratory: No shortness of breath, wheezing, cough GI: +nausea/vomiting, +diarrhea, +constipation. No abdominal pain, melena, hematochezia : No dysuria, hematuria, increased urinary frequency Neuro: +headaches, +dizziness. No weakness, paresthesias Skin: No rashes or lesions Yes all other systems are reviewed and are negative Mental Status Exam Mental Status Exam Narrative: calm, cooperative. no PMA/PMR. speech nml in rate, amount, loudness, tone, latency. thoguhts linear and logical. affect constricted, normo-intense, non-labile. mood a little better but still stuck. passive SI. denies HI/AVH. Diagnostics Vital Signs (24Hr): Vital Signs - 24 hr 02/03/22 21:30 02/04/22 08:52 Temperature 97.2 F 98.1 F Pulse Rate 70 76 Respiratory Rate 18 16 Blood Pressure 135/76 120/77 Pulse Oximetry 94 94 Oxygen Delivery Method Room Air Room Air BMI result Body Mass Index 25.7 Labs Results: 02/03/22 19:11 02/03/22 19:11 Labs: Laboratory Results - last 48 hr 02/03/22 02/03/22 02/03/22 09:15 09:15 09:15 WBC RBC Hgb Hct MCV MCH MCHC RDW Plt Count MPV Immature Gran % (Auto) Neut % (Auto) Lymph % (Auto) [place] % (Auto) Eos % (Auto) Baso % (Auto) Lymph # (Auto) [place] # (Auto) Eos # (Auto) Baso # (Auto) Abs Immat Gran (auto) Absolute Neuts (auto) Absolute Nucleated RBC Nucleated RBC % (auto) Sodium Potassium Chloride Carbon Dioxide Anion Gap BUN Creatinine Estim Creat Clear Calc Estimated GFR POC Glucose Random Glucose Estimat Average Glucose 143 Hemoglobin A1c % 6.6 Calcium Magnesium 1.7 Total Bilirubin AST ALT Alkaline Phosphatase Total Protein Albumin Triglycerides 126 Cholesterol 156 LDL Cholesterol, Calc 92 HDL Cholesterol 39 Vitamin B12 235 Folate 9.9 TSH 1.91 Free T4 0.94 Urine Color Urine Appearance Urine pH Ur Specific [place] Urine Protein Urine Glucose (UA) Urine Ketones Urine Blood Urine Nitrite Ur Leukocyte Esterase 02/03/22 02/03/22 02/03/22 14:50 19:11 19:11 WBC 6.3 RBC 4.59 Hgb 12.4 Hct 40.8 MCV 88.9 MCH 27.0 MCHC 30.4 L RDW 17.2 H Plt Count 155 L MPV 10.2 Immature Gran % (Auto) 0.3 Neut % (Auto) 49.3 Lymph % (Auto) 39.4 [place] % (Auto) 8.8 Eos % (Auto) 1.6 Baso % (Auto) 0.6 Lymph # (Auto) 2.5 [place] # (Auto) 0.6 Eos # (Auto) 0.1 Baso # (Auto) 0.0 Abs Immat Gran (auto) 0.02 Absolute Neuts (auto) 3.1 Absolute Nucleated RBC 0.000 Nucleated RBC % (auto) 0.0 Sodium 140 Potassium 4.7 D Chloride 98 Carbon Dioxide 36 H Anion Gap 11 L BUN 22 H D Creatinine 1.02 Estim Creat Clear Calc 51.9 Estimated GFR 56 POC Glucose 152 H Random Glucose 190 H Estimat Average Glucose Hemoglobin A1c % Calcium 8.9 D Magnesium Total Bilirubin 0.3 AST 11 D ALT 11 Alkaline Phosphatase 63 D Total Protein 6.5 Albumin 3.8 Triglycerides Cholesterol LDL Cholesterol, Calc HDL Cholesterol Vitamin B12 Folate TSH Free T4 Urine Color Urine Appearance Urine pH Ur Specific [place] Urine Protein Urine Glucose (UA) Urine Ketones Urine Blood Urine Nitrite Ur Leukocyte Esterase 02/04/22 10:00 WBC RBC Hgb Hct MCV MCH MCHC RDW Plt Count MPV Immature Gran % (Auto) Neut % (Auto) Lymph % (Auto) [place] % (Auto) Eos % (Auto) Baso % (Auto) Lymph # (Auto) [place] # (Auto) Eos # (Auto) Baso # (Auto) Abs Immat Gran (auto) Absolute Neuts (auto) Absolute Nucleated RBC Nucleated RBC % (auto) Sodium Potassium Chloride Carbon Dioxide Anion Gap BUN Creatinine Estim Creat Clear Calc Estimated GFR POC Glucose Random Glucose Estimat Average Glucose Hemoglobin A1c % Calcium Magnesium Total Bilirubin AST ALT Alkaline Phosphatase Total Protein Albumin Triglycerides Cholesterol LDL Cholesterol, Calc HDL Cholesterol Vitamin B12 Folate TSH Free T4 Urine Color Yellow Urine Appearance Clear Urine pH 5.5 Ur Specific [place] 1.020 Urine Protein Negative Urine Glucose (UA) Negative Urine Ketones Negative Urine Blood Negative Urine Nitrite Negative Ur Leukocyte Esterase Negative Imaging Radiology Impressions: ITS Impressions Head CT 02/04/22 14:33 IMPRESSION: No acute intracranial process seen. Medications Medications Current Medications Al Hydroxide/Mg Hydroxide (Magnesium Hydrox/Alum Hydrox 30 Ml Oral.Susp) 30 ml PO Q6H PRN PRN Reason: Heartburn/Nausea Albuterol Sulfate (Albuterol Sulfate 90 Mcg 8 Gm Inhaler) 2 puff INHALE Q4H PRN PRN Reason: for wheezing Last Admin: 02/04/22 13:51 Dose: 2 puff Albuterol/Ipratropium (Albuterol/Iprat 2.5/0.5mg 3 Ml Ampul.Neb) 3 ml INHALE Q4H PRN PRN Reason: shortness of breath or wheezing Amlodipine Besylate (Amlodipine Besylate 5 Mg Tablet) 5 mg PO DAILY [facility]; Protocol Last Admin: 02/04/22 08:26 Dose: 5 mg Aspirin (Aspirin Enteric Coated 81 Mg Tablet.Dr) 81 mg PO DAILY [facility] Last Admin: 02/04/22 08:27 Dose: 81 mg Ergocalciferol (Ergocalciferol (Vitamin D2) 1,250 Mcg Capsule) 1,250 mcg PO TU [facility] Last Admin: 02/02/22 15:39 Dose: 1,250 mcg Fluticasone/Vilanterol (Fluticasone/Vilanterol 100/25 Blst.W.Dev) 1 puff INHALE RDAILY [facility] Last Admin: 02/04/22 08:27 Dose: 1 puff Gabapentin (Gabapentin 300 Mg Capsule) 900 mg PO TID [facility] Last Admin: 02/04/22 15:39 Dose: 900 mg Hydroxyzine HCl (Hydroxyzine Hcl 25 Mg Tablet) 25 mg PO Q6H PRN PRN Reason: Anxiety Last Admin: 02/04/22 08:27 Dose: 25 mg Lorazepam (Lorazepam 1 Mg Tablet) 2 mg PO BID PRN PRN Reason: anxiety attack Last Admin: 02/04/22 12:00 Dose: 2 mg Magnesium Hydroxide (Milk Of Magnesia 30 Ml Oral.Susp) 30 ml PO DAILY PRN PRN Reason: Constipation Methadone HCl (Methadone Hcl 20 Mg/2 Ml Oral.Conc) 130 mg PO DAILY [facility] Last Admin: 02/04/22 08:29 Dose: 130 mg Mirtazapine (Mirtazapine 30 Mg Tablet) 30 mg PO BEDTIME [facility] Last Admin: 02/03/22 21:43 Dose: 30 mg Nicotine (Nicotine 21 Mg Patch.Td24) 21 mg TRANSDERMA DAILY [facility] Last Admin: 02/04/22 08:27 Dose: 21 mg Omeprazole (Omeprazole 40 Mg Capsule.Dr) 40 mg PO DAILY@0630 [facility] Last Admin: 02/04/22 08:26 Dose: 40 mg Prazosin HCl (Prazosin Hcl 1 Mg Capsule) 2 mg PO BEDTIME [facility]; Protocol Trazodone HCl (Trazodone Hcl 50 Mg Tablet) 50 mg PO BEDTIME PRN PRN Reason: Insomnia Venlafaxine HCl (Venlafaxine Hcl Er 37.5 Mg Cap.Er.24h) 37.5 mg PO DAILY [facility] Last Admin: 02/04/22 08:28 Dose: 37.5 mg Allergies Allergies Allergy/AdvReac Type Severity Reaction Status Date / Time acetaminophen [Vicodin] Allergy Unknown Unknown Verified 09/24/21 15:13 hydrocodone [Vicodin] Allergy Unknown Unknown Verified 09/24/21 15:13 sumatriptan [From IMITREX] Allergy Unknown VOMITING,RA Verified 09/24/21 15:13 Assessment & Plan Assessment & Plan (1) PTSD (post-traumatic stress disorder): Status: Acute Code(s): F43.10 - Post-traumatic stress disorder, unspecified Plan 56 year old female with history of htn, COPD on 2L supplemental O2, opioid depedence on methadone, polysubstance abuse, GERD, aortic stenosis, and controlled type 2 diabetes, anxiety admitted to psychiatry with consult requested for dizziness, sweats, and occipital pressure. Medical: Lightheadedness, headache, diaphoresis. Also reporting unintentional wl x 6 months and recurrent n/v - EKG normal. TSH, free T4 normal. CBC and CMP largely unremarkable. Will repeat. 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 CT head ordered -Has IV/ systolic murmur. Unlikely cause of symptoms but recommend further follow up outpt with pcp -Occipital pressure could be from cocaine withdrawal. Recommend tylenol prn -Persistent N/V possibly from MJ abuse. Recommend cessation. Ondansetron prn 2. Submandibular mass with hx unintentional wl -CBC ordered -Neck CT ordered -Outpt follow up advised PSYCH 02/04 continue current medications. I spent minutes with the patient and/or on the patient floor today, greater than?50% of which was spent counseling/coordinating care. Reason for contiued inpatient stay Substantial Risk for: harm to self
[2022-02-04] MEDS: Prazosin HCL 1 MG CAPSULE 2 MG PO (22:02)
[2022-02-04] MEDS: Mirtazapine 30 MG TABLET PO (22:02)
[2022-02-04] MEDS: Milk of Magnesia 30 ML ORAL.SUSP PO (22:12)
[2022-02-05 08:30] VITALS: BP 148/65; PULSE 84; RESP 16; TEMP 36.6; O2SAT 97
[2022-02-05] MEDS: Fluticasone/Vilanterol 100/25 BLST.W.DEV 1 PUFF INHALE (08:49)
[2022-02-05] MEDS: Gabapentin 300 MG CAPSULE 900 MG PO ×3 (08:50→20:50)
[2022-02-05] MEDS: Venlafaxine HCl ER 37.5 MG CAP.ER.24H PO (08:50)
[2022-02-05] MEDS: amLODIPine Besylate 5 MG TABLET PO (08:51)
[2022-02-05] MEDS: Omeprazole 40 MG CAPSULE.DR PO (08:51)
[2022-02-05] MEDS: Nicotine 21 MG PATCH.TD24 TRANSDERMA (08:51)
[2022-02-05] MEDS: Aspirin Enteric Coated 81 MG TABLET.DR PO (08:51)
[2022-02-05] MEDS: methADONE HCl 20 MG/2 ML ORAL.CONC 130 MG PO (08:54)
--- NOTE | 2022-02-05 09:55 | MHC.CLN ---
F/U VISITED PATIENT AT [facility]. APPEARS TO BE EATING WELL. EXPLAINED THAT ENSURE BID IS AT LUNCH AND SUPPER. CONTINUE REGULAR DIET AND ENSURE BID. RD TO FOLLOW WEEKLY.
[2022-02-05] MEDS: Ibuprofen 400 MG TABLET PO ×2 (11:29→23:33)
[2022-02-05] MEDS: guaiFENesin LA 600 MG TAB.ER.12H PO ×2 (11:29→20:50)
[2022-02-05] MEDS: LORazepam 1 MG TABLET 2 MG PO ×2 (11:29→20:55)
[2022-02-05] MEDS: Capsaicin 0.025% Cream 60 GM TUBE 1 APPL TOPICAL (14:50)
[2022-02-05] MEDS: Albuterol Sulfate 90 MCG 8 GM INHALER 2 PUFF INHALE ×2 (14:50→20:55)
--- NOTE | 2022-02-05 15:33 | P.PNPSI_ITS ---
Subjective Subjective Date of Service: 02/05/22 Reason For Visit: anxiety Interim History: pt seen in her room, in pablito chair with O2 via NC. c/o severe anxiety. thinks she only slept about 1.5 hours last night. c/o neck pain. demonstrates how she sleeps in chair both here and at home, states the neck pain is new since she arrived. educated re expectations around smoking cessation, use of guaifenesin. says she can tolerate ibu for pain. declines to stop prazosin to see if it is causing the neck/occipital pain (relatively common side effect of prazosin is headache), agrees to further increase tonight. per staff, not attending groups. head/neck CT unremarkable. poor sleep. increased anx/dep. no BM for 5 days. ativan 2 mg with good effect. Mental Status Exam Mental Status Exam Narrative: calm, cooperative. no PMA/PMR. speech nml in rate, amount, loudness, tone, latency. thoughts linear and logical. affect constricted, normo-intense, non- labile. passive SI. denies HI/AVH. Diagnostics Vital Signs (24Hr): Vital Signs - 24 hr 02/05/22 08:30 Temperature 97.9 F Pulse Rate 84 Respiratory Rate 16 Blood Pressure 148/65 H Pulse Oximetry 97 Oxygen Delivery Method Nasal Cannula Oxygen Flow Rate 2 BMI result Body Mass Index 25.7 Labs Results: 02/03/22 19:11 02/03/22 19:11 Labs: Laboratory Results - last 48 hr 02/03/22 02/03/22 02/04/22 19:11 19:11 10:00 WBC 6.3 RBC 4.59 Hgb 12.4 Hct 40.8 MCV 88.9 MCH 27.0 MCHC 30.4 L RDW 17.2 H Plt Count 155 L MPV 10.2 Immature Gran % (Auto) 0.3 Neut % (Auto) 49.3 Lymph % (Auto) 39.4 [place] % (Auto) 8.8 Eos % (Auto) 1.6 Baso % (Auto) 0.6 Lymph # (Auto) 2.5 [place] # (Auto) 0.6 Eos # (Auto) 0.1 Baso # (Auto) 0.0 Abs Immat Gran (auto) 0.02 Absolute Neuts (auto) 3.1 Absolute Nucleated RBC 0.000 Nucleated RBC % (auto) 0.0 Sodium 140 Potassium 4.7 D Chloride 98 Carbon Dioxide 36 H Anion Gap 11 L BUN 22 H D Creatinine 1.02 Estim Creat Clear Calc 51.9 Estimated GFR 56 Random Glucose 190 H Calcium 8.9 D Total Bilirubin 0.3 AST 11 D ALT 11 Alkaline Phosphatase 63 D Total Protein 6.5 Albumin 3.8 Urine Color Yellow Urine Appearance Clear Urine pH 5.5 Ur Specific [place] 1.020 Urine Protein Negative Urine Glucose (UA) Negative Urine Ketones Negative Urine Blood Negative Urine Nitrite Negative Ur Leukocyte Esterase Negative Imaging Radiology Impressions: ITS Impressions Head CT 02/04/22 14:33 IMPRESSION: No acute intracranial process seen. Medications Medications Current Medications Al Hydroxide/Mg Hydroxide (Magnesium Hydrox/Alum Hydrox 30 Ml Oral.Susp) 30 ml PO Q6H PRN PRN Reason: Heartburn/Nausea Albuterol Sulfate (Albuterol Sulfate 90 Mcg 8 Gm Inhaler) 2 puff INHALE Q4H PRN PRN Reason: for wheezing Last Admin: 02/05/22 14:50 Dose: 2 puff Albuterol/Ipratropium (Albuterol/Iprat 2.5/0.5mg 3 Ml Ampul.Neb) 3 ml INHALE Q4H PRN PRN Reason: shortness of breath or wheezing Amlodipine Besylate (Amlodipine Besylate 5 Mg Tablet) 5 mg PO DAILY COUNTS INCLUDE 234 BEDS AT THE [facility]; Protoc ol Last Admin: 02/05/22 08:51 Dose: 5 mg Aspirin (Aspirin Enteric Coated 81 Mg Tablet.Dr) 81 mg PO DAILY COUNTS INCLUDE 234 BEDS AT THE [facility] Last Admin: 02/05/22 08:51 Dose: 81 mg Capsaicin (Capsaicin 0.025% Cream 60 Gm Tube) 1 appl TOPICAL QID PRN; Protocol PRN Reason: Pain, Severe (Pain Scale 7-10) Last Admin: 02/05/22 14:50 Dose: 1 appl Ergocalciferol (Ergocalciferol (Vitamin D2) 1,250 Mcg Capsule) 1,250 mcg PO TU COUNTS INCLUDE 234 BEDS AT THE [facility] Last Admin: 02/02/22 15:39 Dose: 1,250 mcg Fluticasone/Vilanterol (Fluticasone/Vilanterol 100/25 Blst.W.Dev) 1 puff INHALE RDAILY COUNTS INCLUDE 234 BEDS AT THE [facility] Last Admin: 02/05/22 08:49 Dose: 1 puff Gabapentin (Gabapentin 300 Mg Capsule) 900 mg PO TID COUNTS INCLUDE 234 BEDS AT THE [facility] Last Admin: 02/05/22 08:50 Dose: 900 mg Guaifenesin (Guaifenesin La 600 Mg Tab.Er.12h) 600 mg PO BID COUNTS INCLUDE 234 BEDS AT THE [facility] Last Admin: 02/05/22 11:29 Dose: 600 mg Hydroxyzine HCl (Hydroxyzine Hcl 25 Mg Tablet) 25 mg PO Q6H PRN PRN Reason: Anxiety Last Admin: 02/04/22 08:27 Dose: 25 mg Ibuprofen (Ibuprofen 400 Mg Tablet) 400 mg PO Q6H PRN PRN Reason: Pain, Mild (Pain Scale 1-3) Last Admin: 02/05/22 11:29 Dose: 400 mg Lorazepam (Lorazepam 1 Mg Tablet) 2 mg PO BID PRN PRN Reason: anxiety attack Last Admin: 02/05/22 11:29 Dose: 2 mg Magnesium Hydroxide (Milk Of Magnesia 30 Ml Oral.Susp) 30 ml PO DAILY PRN PRN Reason: Constipation Last Admin: 02/04/22 22:12 Dose: 30 ml Methadone HCl (Methadone Hcl 20 Mg/2 Ml Oral.Conc) 130 mg PO DAILY [facility]S [facility]CLUDE 234 BEDS AT THE [facility] Last Admin: 02/05/22 08:54 Dose: 130 mg Mirtazapine (Mirtazapine 30 Mg Tablet) 30 mg PO BEDTIME COUNTS INCLUDE 234 BEDS AT THE [facility] Last Admin: 02/04/22 22:02 Dose: 30 mg Nicotine (Nicotine 21 Mg Patch.Td24) 21 mg TRANSDERMA DAILY [facility]S INCLUDE 234 BEDS AT THE [facility] Last Admin: 02/05/22 08:51 Dose: 21 mg Omeprazole (Omeprazole 40 Mg Capsule.Dr) 40 mg PO DAILY@0630 COUNTS [facility]CLUDE 234 BEDS AT THE [facility] Last Admin: 02/05/22 08:51 Dose: 40 mg Prazosin HCl (Prazosin Hcl 1 Mg Capsule) 3 mg PO BEDTIME COUNTS INCLUDE 234 BEDS AT THE [facility]; Protocol Trazodone HCl (Trazodone Hcl 50 Mg Tablet) 50 mg PO BEDTIME PRN PRN Reason: Insomnia Venlafaxine HCl (Venlafaxine Hcl Er 37.5 Mg Cap.Er.24h) 37.5 mg PO DAILY COUNTS INCLUDE 234 BEDS AT THE [facility] Last Admin: 02/05/22 08:50 Dose: 37.5 mg Allergies Allergies Allergy/AdvReac Type Severity Reaction Status Date / Time acetaminophen [Vicodin] Allergy Unknown Unknown Verified 09/24/21 15:13 hydrocodone [Vicodin] Allergy Unknown Unknown Verified 09/24/21 15:13 sumatriptan [From IMITREX] Allergy Unknown VOMITING,RA Verified 09/24/21 15:13 Assessment & Plan Assessment & Plan (1) PTSD (post-traumatic stress disorder): Status: Acute Code(s): F43.10 - Post-traumatic stress disorder, unspecified (2) Opioid use disorder, severe, dependence: Status: Acute Code(s): F11.20 - Opioid dependence, uncomplicated (3) Occipital headache: Status: Acute Code(s): R51.9 - Headache, unspecified Assessment and Plan: 56 year old female with history of htn, COPD on 2L supplemental O2, opioid depedence on methadone, polysubstance abuse, GERD, aortic stenosis, and controlled type 2 diabetes, anxiety admitted to psychiatry with consult requested for dizziness, sweats, and occipital pressure. Medical: Lightheadedness, headache, diaphoresis. Also reporting unintentional wl x 6 months and recurrent n/v - EKG normal. TSH, free T4 normal. CBC and CMP largely unremarkable. Will repeat. 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 CT head ordered -Has IV/ systolic murmur. Unlikely cause of symptoms but recommend further follow up outpt with pcp -Occipital pressure could be from cocaine withdrawal. Recommend tylenol prn -Persistent N/V possibly from MJ abuse. Recommend cessation. Ondansetron prn 2. Submandibular mass with hx unintentional wl -CBC ordered -Neck CT ordered -Outpt follow up advised Plan 02/03: restart home meds. increase remeron to 30 mg at HS start prazosin titration for nightmares and insomnia in PTSD. medical consult and EKG for repeated episodes of dizziness, occipital pain, sweating. Patient educated on: diagnosis, medication risk/benefits and substance abuse 02/04: no change in mgmt. 02/05: continue titration of prazosin to 3 mg at HS. no etiology of Sx of occipital BUTLER found per medical consult. of note, BUTLER began PRIOR TO start of prazosin. otherwise continue current mgmt. I spent __25____ minutes with the patient and/or on the patient floor today, greater than?50% of which was spent counseling/coordinating care. Reason for contiued inpatient stay Substantial Risk for: inability to function and rapid decompensation
[2022-02-05] MEDS: Cyclobenzaprine HCl 5 MG TABLET PO ×2 (17:55→23:32)
[2022-02-05] MEDS: Mirtazapine 30 MG TABLET PO (20:50)
[2022-02-05] MEDS: Prazosin HCL 1 MG CAPSULE 3 MG PO (20:51)
[2022-02-05 21:02] VITALS: BP 148/80; PULSE 72; RESP 18; TEMP 36.7; O2SAT 98
[2022-02-05] MEDS: traZODone HCL 50 MG TABLET PO (23:37)
[2022-02-06] MEDS: LORazepam 1 MG TABLET 2 MG PO ×2 (03:45→15:38)
--- NOTE | 2022-02-06 08:17 | HO.PSYCHPN ---
Subjective Subjective Date of Service: 02/06/22 Reason For Visit: anxiety Subjective Notes: Conditional Voluntary Healthcare Proxy: No Guardianship: No Medical Problems Affecting Mental Status: No Interim History: Patient was seen and discussed in rounds. Records and plans were reviewed. She was seen in her room, in a Jackelyn chair with oxygen in place. She continues to be anxious. She is sleeping in naps. She also has some neck pain. She has constipation and milk of Mag was ineffective and Dulcolax was ordered for today. She is pleasant. No other complaints. No changes were implemented today Review of Systems Review of Systems Except for breathing issues and neck pain and constipation Yes all other systems are reviewed and are negative Diagnostics Vital Signs (24Hr): Vital Signs - 24 hr 02/05/22 08:30 02/05/22 21:02 Temperature 97.9 F 98.1 F Pulse Rate 84 72 Respiratory Rate 16 18 Blood Pressure 148/65 H 148/80 H Pulse Oximetry 97 98 Oxygen Delivery Method Nasal Cannula Room Air Oxygen Flow Rate 2 BMI result Body Mass Index 25.7 Labs Results: 02/03/22 19:11 02/03/22 19:11 Labs: Laboratory Results - last 48 hr 02/04/22 10:00 Urine Color Yellow Urine Appearance Clear Urine pH 5.5 Ur Specific [place] 1.020 Urine Protein Negative Urine Glucose (UA) Negative Urine Ketones Negative Urine Blood Negative Urine Nitrite Negative Ur Leukocyte Esterase Negative Imaging Radiology Impressions: ITS Impressions Head CT 02/04/22 14:33 IMPRESSION: No acute intracranial process seen. Soft Tissue Neck CT 02/04/22 14:33 IMPRESSION: The diagnostic accuracy of this examination is somewhat limited due to the absence of intravenous contrast. There is no identifiable soft tissue mass or adenopathy. Scattered atheromatous calcification involves both carotid bifurcations. 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 Medications Medications Current Medications Al Hydroxide/Mg Hydroxide (Magnesium Hydrox/Alum Hydrox 30 Ml Oral.Susp) 30 ml PO Q6H PRN PRN Reason: Heartburn/Nausea Albuterol Sulfate (Albuterol Sulfate 90 Mcg 8 Gm Inhaler) 2 puff INHALE Q4H PRN PRN Reason: for wheezing Last Admin: 02/05/22 20:55 Dose: 2 puff Albuterol/Ipratropium (Albuterol/Iprat 2.5/0.5mg 3 Ml Ampul.Neb) 3 ml INHALE Q4H PRN PRN Reason: shortness of breath or wheezing Amlodipine Besylate (Amlodipine Besylate 5 Mg Tablet) 5 mg PO DAILY [facility]; Protocol Last Admin: 02/05/22 08:51 Dose: 5 mg Aspirin (Aspirin Enteric Coated 81 Mg Tablet.Dr) 81 mg PO DAILY [facility] Last Admin: 02/05/22 08:51 Dose: 81 mg Bisacodyl (Bisacodyl 10 Mg Supp.Rect) 10 mg ID DAILY PRN PRN Reason: Constipation Capsaicin (Capsaicin 0.025% Cream 60 Gm Tube) 1 appl TOPICAL QID PRN; Protocol PRN Reason: Pain, Severe (Pain Scale 7-10) Last Admin: 02/05/22 14:50 Dose: 1 appl Cyclobenzaprine HCl (Cyclobenzaprine Hcl 5 Mg Tablet) 5 mg PO TID PRN PRN Reason: spasm Last Admin: 02/05/22 23:32 Dose: 5 mg Ergocalciferol (Ergocalciferol (Vitamin D2) 1,250 Mcg Capsule) 1,250 mcg PO TU [facility] Last Admin: 02/02/22 15:39 Dose: 1,250 mcg Fluticasone/Vilanterol (Fluticasone/Vilanterol 100/25 Blst.W.Dev) 1 puff INHALE RDAILY [facility] Last Admin: 02/05/22 08:49 Dose: 1 puff Gabapentin (Gabapentin 300 Mg Capsule) 900 mg PO TID [facility] Last Admin: 02/05/22 20:50 Dose: 900 mg Guaifenesin (Guaifenesin [place] 600 Mg Tab.Er.12h) 600 mg PO BID [facility] Last Admin: 02/05/22 20:50 Dose: 600 mg Hydroxyzine HCl (Hydroxyzine Hcl 25 Mg Tablet) 25 mg PO Q6H PRN PRN Reason: Anxiety Last Admin: 02/04/22 08:27 Dose: 25 mg Ibuprofen (Ibuprofen 600 Mg Tablet) 600 mg PO Q6H PRN PRN Reason: Pain, Mild (Pain Scale 1-3) Lidocaine (Lidocaine 4 % Patch Adh..Patch) 1 patch TRANSDERMA DAILY [facility] Lorazepam (Lorazepam 1 Mg Tablet) 2 mg PO BID PRN PRN Reason: anxiety attack Last Admin: 02/06/22 03:45 Dose: 2 mg Magnesium Hydroxide (Milk Of Magnesia 30 Ml Oral.Susp) 30 ml PO DAILY PRN PRN Reason: Constipation Last Admin: 02/04/22 22:12 Dose: 30 ml Methadone HCl (Methadone Hcl 20 Mg/2 Ml Oral.Conc) 130 mg PO DAILY [facility] Last Admin: 02/05/22 08:54 Dose: 130 mg Mirtazapine (Mirtazapine 30 Mg Tablet) 30 mg PO BEDTIME [facility] Last Admin: 02/05/22 20:50 Dose: 30 mg Nicotine (Nicotine 21 Mg Patch.Td24) 21 mg TRANSDERMA DAILY [facility] Last Admin: 02/05/22 08:51 Dose: 21 mg Omeprazole (Omeprazole 40 Mg Capsule.Dr) 40 mg PO DAILY@0630 [facility] Last Admin: 02/05/22 08:51 Dose: 40 mg Prazosin HCl (Prazosin Hcl 1 Mg Capsule) 3 mg PO BEDTIME [facility]; Protocol Last Admin: 02/05/22 20:51 Dose: 3 mg Trazodone HCl (Trazodone Hcl 50 Mg Tablet) 50 mg PO BEDTIME PRN PRN Reason: Insomnia Last Admin: 02/05/22 23:37 Dose: 50 mg Venlafaxine HCl (Venlafaxine Hcl Er 37.5 Mg Cap.Er.24h) 37.5 mg PO DAILY [facility] Last Admin: 02/05/22 08:50 Dose: 37.5 mg Allergies Allergies Allergy/AdvReac Type Severity Reaction Status Date / Time acetaminophen [Vicodin] Allergy Unknown Unknown Verified 09/24/21 15:13 hydrocodone [Vicodin] Allergy Unknown Unknown Verified 09/24/21 15:13 sumatriptan [From IMITREX] Allergy Unknown VOMITING,RA Verified 09/24/21 15:13 Assessment & Plan Assessment & Plan (1) PTSD (post-traumatic stress disorder): Status: Acute Code(s): F43.10 - Post-traumatic stress disorder, unspecified (2) Opioid use disorder, severe, dependence: Status: Acute Code(s): F11.20 - Opioid dependence, uncomplicated (3) Occipital headache: Status: Acute Code(s): R51.9 - Headache, unspecified Assessment and Plan: 56 year old female with history of htn, COPD on 2L supplemental O2, opioid depedence on methadone, polysubstance abuse, GERD, aortic stenosis, and controlled type 2 diabetes, anxiety admitted to psychiatry with consult requested for dizziness, sweats, and occipital pressure. Medical: Lightheadedness, headache, diaphoresis. Also reporting unintentional wl x 6 months and recurrent n/v - EKG normal. TSH, free T4 normal. CBC and CMP largely unremarkable. Will repeat. 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 CT head ordered -Has IV/ systolic murmur. Unlikely cause of symptoms but recommend further follow up outpt with pcp -Occipital pressure could be from cocaine withdrawal. Recommend tylenol prn -Persistent N/V possibly from MJ abuse. Recommend cessation. Ondansetron prn 2. Submandibular mass with hx unintentional wl -CBC ordered -Neck CT ordered -Outpt follow up advised Plan 02/03: restart home meds. increase remeron to 30 mg at HS start prazosin titration for nightmares and insomnia in PTSD. medical consult and EKG for repeated episodes of dizziness, occipital pain, sweating. Patient educated on: diagnosis, medication risk/benefits and substance abuse 02/04: no change in mgmt. 02/05: continue titration of prazosin to 3 mg at HS. no etiology of Sx of occipital BUTLER found per medical consult. of note, BUTLER began PRIOR TO start of prazosin. otherwise continue current mgmt. I spent minutes with the patient and/or on the patient floor today, greater than?50% of which was spent counseling/coordinating care. Reason for contiued inpatient stay Substantial Risk for: med/psych decompensation
[2022-02-06 09:09] VITALS: BP 106/57; PULSE 70; RESP 16; TEMP 36; O2SAT 93
[2022-02-06] MEDS: methADONE HCl 20 MG/2 ML ORAL.CONC 130 MG PO (09:19)
[2022-02-06] MEDS: Gabapentin 300 MG CAPSULE 900 MG PO ×3 (09:23→21:09)
[2022-02-06] MEDS: Aspirin Enteric Coated 81 MG TABLET.DR PO (09:24)
[2022-02-06] MEDS: Venlafaxine HCl ER 37.5 MG CAP.ER.24H PO (09:24)
[2022-02-06] MEDS: Omeprazole 40 MG CAPSULE.DR PO (09:24)
[2022-02-06] MEDS: guaiFENesin LA 600 MG TAB.ER.12H PO ×2 (09:25→21:09)
[2022-02-06] MEDS: Ibuprofen 400 MG TABLET PO (09:27)
[2022-02-06] MEDS: Fluticasone/Vilanterol 100/25 BLST.W.DEV 1 PUFF INHALE (09:28)
[2022-02-06] MEDS: Nicotine 21 MG PATCH.TD24 TRANSDERMA (09:28)
[2022-02-06] MEDS: Albuterol Sulfate 90 MCG 8 GM INHALER 2 PUFF INHALE (09:28)
[2022-02-06] MEDS: Cyclobenzaprine HCl 5 MG TABLET PO (09:38)
[2022-02-06] MEDS: Lidocaine 4 % Patch ADH..PATCH 1 PATCH TRANSDERMA (12:33)
[2022-02-06] MEDS: NaPROXEN 500 MG TABLET PO (13:11)
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
--- NOTE | 2022-02-06 19:30 | PC.NURSE ---
Called medical records at [facility] [phone] to request documentation supporting dx of liver cirrhosis. Pt reports she cannot take tylenol due to cirrhosis but hospitalist is looking for supporting documentation.
[2022-02-06 20:56] LABS: Glucose, Whole Blood 157 mg/dL (60-115)
[2022-02-06 21:05] VITALS: BP 128/69; PULSE 79; RESP 16; TEMP 36.8; O2SAT 97
[2022-02-06] MEDS: Prazosin HCL 1 MG CAPSULE 3 MG PO (21:08)
[2022-02-06] MEDS: Mirtazapine 30 MG TABLET PO (21:09)
[2022-02-06] MEDS: TiZANidine HCL 4 MG TABLET PO (21:10)
[2022-02-06] MEDS: Insulin Lispro 100 UNIT/ML 3 ML VIAL SUBCUT (21:12)
[2022-02-07] MEDS: LORazepam 1 MG TABLET 2 MG PO ×3 (01:17→21:49)
[2022-02-07] MEDS: Ibuprofen 600 MG TABLET PO ×2 (01:17→12:27)
[2022-02-07] MEDS: traZODone HCL 50 MG TABLET PO (01:18)
[2022-02-07] MEDS: Albuterol Sulfate 90 MCG 8 GM INHALER 2 PUFF INHALE (06:53)
[2022-02-07 08:09] LABS: Glucose, Whole Blood 139 mg/dL (60-115)
[2022-02-07 08:12] VITALS: BP 113/55; PULSE 76; RESP 16; TEMP 36.6; O2SAT 95
[2022-02-07] MEDS: methADONE HCl 20 MG/2 ML ORAL.CONC 130 MG PO (08:18)
[2022-02-07] MEDS: Gabapentin 300 MG CAPSULE 900 MG PO ×3 (08:21→21:27)
[2022-02-07] MEDS: Venlafaxine HCl ER 37.5 MG CAP.ER.24H PO (08:21)
[2022-02-07] MEDS: Omeprazole 40 MG CAPSULE.DR PO (08:21)
[2022-02-07] MEDS: TiZANidine HCL 4 MG TABLET PO ×3 (08:22→21:27)
[2022-02-07] MEDS: guaiFENesin LA 600 MG TAB.ER.12H PO ×2 (08:22→21:28)
[2022-02-07] MEDS: Aspirin Enteric Coated 81 MG TABLET.DR PO (08:22)
[2022-02-07] MEDS: Nicotine 21 MG PATCH.TD24 TRANSDERMA (08:25)
[2022-02-07] MEDS: Fluticasone/Vilanterol 100/25 BLST.W.DEV 1 PUFF INHALE (08:31)
--- NOTE | 2022-02-07 09:57 | HO.PSYCHPN ---
Subjective Subjective Date of Service: 02/07/22 Reason For Visit: anxiety Subjective Notes: Conditional Voluntary Healthcare Proxy: No Guardianship: No Medical Problems Affecting Mental Status: No Interim History: Patient was seen and discussed in rounds. Records and plans were reviewed. She continues to be mostly in her room and on oxygen. She was complaining of occipital headache yesterday and a hospitalist consult was placed. She has had 2- recent CT scans. She still has the headache and tizanidine was not helpful. Eating and sleeping adequately and does not appear to be any observable pain or neck discomfort. She denies any auditory or visual hallucinations but appears to be responsive to internal stimuli at times. No changes were made today Review of Systems Review of Systems Respiratory issues, occipital headache Yes all other systems are reviewed and are negative Eyes: Reports no additional eye complaints Diagnostics Vital Signs (24Hr): Vital Signs - 24 hr 02/06/22 21:05 02/07/22 08:12 Temperature 98.3 F 97.9 F Pulse Rate 79 76 Respiratory Rate 16 16 Blood Pressure 128/69 113/55 L Pulse Oximetry 97 95 Oxygen Delivery Method Nasal Cannula Nasal Cannula Oxygen Flow Rate 2 BMI result Body Mass Index 25.7 Labs Results: 02/03/22 19:11 02/03/22 19:11 Labs: Laboratory Results - last 48 hr 02/06/22 02/07/22 20:51 08:02 POC Glucose 157 H 139 H Imaging Radiology Impressions: ITS Impressions Head CT 02/04/22 14:33 IMPRESSION: No acute intracranial process seen. Soft Tissue Neck CT 02/04/22 14:33 IMPRESSION: The diagnostic accuracy of this examination is somewhat limited due to the absence of intravenous contrast. There is no identifiable soft tissue mass or adenopathy. Scattered atheromatous calcification involves both carotid bifurcations. 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 Medications Medications Current Medications Acetaminophen (Acetaminophen 325 Mg Tablet) 650 mg PO Q6H PRN PRN Reason: Headache Al Hydroxide/Mg Hydroxide (Magnesium Hydrox/Alum Hydrox 30 Ml Oral.Susp) 30 ml PO Q6H PRN PRN Reason: Heartburn/Nausea Albuterol Sulfate (Albuterol Sulfate 90 Mcg 8 Gm Inhaler) 2 puff INHALE Q4H PRN PRN Reason: for wheezing Last Admin: 02/07/22 06:53 Dose: 2 puff Albuterol/Ipratropium (Albuterol/Iprat 2.5/0.5mg 3 Ml Ampul.Neb) 3 ml INHALE Q4H PRN PRN Reason: shortness of breath or wheezing Amlodipine Besylate (Amlodipine Besylate 5 Mg Tablet) 5 mg PO DAILY [facility]; Protocol Last Admin: 02/07/22 08:23 Dose: Not Given Aspirin (Aspirin Enteric Coated 81 Mg Tablet.Dr) 81 mg PO DAILY [facility] Last Admin: 02/07/22 08:22 Dose: 81 mg Bisacodyl (Bisacodyl 10 Mg Supp.Rect) 10 mg NE DAILY PRN PRN Reason: Constipation Capsaicin (Capsaicin 0.025% Cream 60 Gm Tube) 1 appl TOPICAL QID PRN; Protocol PRN Reason: Pain, Severe (Pain Scale 7-10) Last Admin: 02/05/22 14:50 Dose: 1 appl Dextrose (Dextrose 50 % 25 Gm/50 Ml Syringe) 25 gm IVPUSH Q15M PRN; Protocol PRN Reason: per Hypoglycemia Standing Ord. Ergocalciferol (Ergocalciferol (Vitamin D2) 1,250 Mcg Capsule) 1,250 mcg PO TU [facility] Last Admin: 02/02/22 15:39 Dose: 1,250 mcg Fluticasone/Vilanterol (Fluticasone/Vilanterol 100/25 Blst.W.Dev) 1 puff INHALE RDAILY [facility] Last Admin: 02/07/22 08:31 Dose: 1 puff Gabapentin (Gabapentin 300 Mg Capsule) 900 mg PO TID [facility] Last Admin: 02/07/22 08:21 Dose: 900 mg Glucose (Glucose Gel 15 Gm Gel..Gram.) 15 gm PO Q15M PRN; Protocol PRN Reason: per Hypoglycemia Standing Ord. Guaifenesin (Guaifenesin La 600 Mg Tab.Er.12h) 600 mg PO BID [facility] Last Admin: 02/07/22 08:22 Dose: 600 mg Hydroxyzine HCl (Hydroxyzine Hcl 25 Mg Tablet) 25 mg PO Q6H PRN PRN Reason: Anxiety Last Admin: 02/04/22 08:27 Dose: 25 mg Ibuprofen (Ibuprofen 600 Mg Tablet) 600 mg PO Q6H PRN PRN Reason: Pain, Mild (Pain Scale 1-3) Last Admin: 02/07/22 01:17 Dose: 600 mg Insulin Human Lispro (Insulin Lispro 100 Unit/Ml 3 Ml Vial) 0 unit SUBCUT QIDACHS [facility]; Protocol Last Admin: 02/07/22 08:23 Dose: Not Given Lidocaine (Lidocaine 4 % Patch Adh..Patch) 1 patch TRANSDERMA DAILY [facility] Last Admin: 02/07/22 08:23 Dose: Not Given Lorazepam (Lorazepam 1 Mg Tablet) 2 mg PO BID PRN PRN Reason: anxiety attack Last Admin: 02/07/22 01:17 Dose: 2 mg Magnesium Hydroxide (Milk Of Magnesia 30 Ml Oral.Susp) 30 ml PO DAILY PRN PRN Reason: Constipation Last Admin: 02/04/22 22:12 Dose: 30 ml Methadone HCl (Methadone Hcl 20 Mg/2 Ml Oral.Conc) 130 mg PO DAILY [facility] Last Admin: 02/07/22 08:18 Dose: 130 mg Mirtazapine (Mirtazapine 30 Mg Tablet) 30 mg PO BEDTIME [facility] Last Admin: 02/06/22 21:09 Dose: 30 mg Nicotine (Nicotine 21 Mg Patch.Td24) 21 mg TRANSDERMA DAILY [facility] Last Admin: 02/07/22 08:25 Dose: 21 mg Omeprazole (Omeprazole 40 Mg Capsule.Dr) 40 mg PO DAILY@0630 [facility] Last Admin: 02/07/22 08:21 Dose: 40 mg Ondansetron HCl (Ondansetron Odt 4 Mg Tab.Rapdis) 4 mg TRANSLINGU Q8H PRN PRN Reason: Nausea and Vomiting Prazosin HCl (Prazosin Hcl 1 Mg Capsule) 3 mg PO BEDTIME [facility]; Protocol Last Admin: 02/06/22 21:08 Dose: 3 mg Tizanidine HCl (Tizanidine Hcl 4 Mg Tablet) 4 mg PO TID [facility] Last Admin: 02/07/22 08:22 Dose: 4 mg Trazodone HCl (Trazodone Hcl 50 Mg Tablet) 50 mg PO BEDTIME PRN PRN Reason: Insomnia Last Admin: 02/07/22 01:18 Dose: 50 mg Venlafaxine HCl (Venlafaxine Hcl Er 37.5 Mg Cap.Er.24h) 37.5 mg PO DAILY [facility] Last Admin: 02/07/22 08:21 Dose: 37.5 mg Allergies Allergies Allergy/AdvReac Type Severity Reaction Status Date / Time acetaminophen [Vicodin] Allergy Unknown Unknown Verified 09/24/21 15:13 hydrocodone [Vicodin] Allergy Unknown Unknown Verified 09/24/21 15:13 sumatriptan [From IMITREX] Allergy Unknown VOMITING,RA Verified 09/24/21 15:13 Assessment & Plan Assessment & Plan (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 1- Acute tension headache -Patient with reproducible band-like pressure of the scalp with associated blurred vision -Head CT negative 2 days ago. -Unlikely to be giant cell arteritis given bilateral nature of reproducible pressure. -Reports adverse affect with fioricet d/t caffeine and has adverse reaction to triptans. Tizanidine 2mg ordered. Can increase to 4mg q8h if needed. Advised about sedation -Improve PO hydration -Ondansetron prn for nausea 2-Abnormal cranial nerve exam -Pt demonstrates lateral deviation of left eye when testing convergence, however only occurs intermittently -Head CT negative. -Follow up on this outpt 1-Idu-midtsrr dependent type 2 diabetes -Glucose levels uncontrolled -Recommend initiating SSI and POC glucose. Ordered -Diabetic diet advised 4-Hepatic cirrhosis -Patient reports this was diagnosed at [facility] during prior admission. No notes available at this time. 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 Signing off at this time. Please do not hesitate to call for further questions. I spent minutes with the patient and/or on the patient floor today, greater than?50% of which was spent counseling/coordinating care. Reason for contiued inpatient stay Substantial Risk for: med/psych decompensation
[2022-02-07 13:03] LABS: Glucose, Whole Blood 218 mg/dL (60-115)
[2022-02-07] MEDS: Insulin Lispro 100 UNIT/ML 3 ML VIAL SUBCUT ×2 (13:12→18:37)
[2022-02-07 17:59] LABS: Glucose, Whole Blood 225 mg/dL (60-115)
[2022-02-07 21:18] VITALS: BP 156/69; PULSE 86; RESP 16; TEMP 36.5; O2SAT 90
[2022-02-07] MEDS: Prazosin HCL 1 MG CAPSULE 3 MG PO (21:26)
[2022-02-07] MEDS: Mirtazapine 30 MG TABLET PO (21:27)
[2022-02-07 21:36] LABS: Glucose, Whole Blood 149 mg/dL (60-115)
[2022-02-07] MEDS: Acetaminophen 325 MG TABLET 650 MG PO (23:28)
[2022-02-08 09:08] LABS: Glucose, Whole Blood 146 mg/dL (60-115)
[2022-02-08 09:10] VITALS: BP 127/64; PULSE 69; RESP 16; TEMP 36.6; O2SAT 96
[2022-02-08] MEDS: Fluticasone/Vilanterol 100/25 BLST.W.DEV 1 PUFF INHALE (09:20)
[2022-02-08] MEDS: Nicotine 21 MG PATCH.TD24 TRANSDERMA (09:21)
[2022-02-08] MEDS: Omeprazole 40 MG CAPSULE.DR PO (09:22)
[2022-02-08] MEDS: Venlafaxine HCl ER 37.5 MG CAP.ER.24H PO (09:22)
[2022-02-08] MEDS: Aspirin Enteric Coated 81 MG TABLET.DR PO (09:23)
[2022-02-08] MEDS: amLODIPine Besylate 5 MG TABLET PO (09:23)
[2022-02-08] MEDS: guaiFENesin LA 600 MG TAB.ER.12H PO (09:23)
[2022-02-08] MEDS: TiZANidine HCL 4 MG TABLET PO (09:24)
[2022-02-08] MEDS: methADONE HCl 20 MG/2 ML ORAL.CONC 130 MG PO (09:25)
[2022-02-08] MEDS: Gabapentin 300 MG CAPSULE 900 MG PO ×3 (10:18→22:21)
[2022-02-08] MEDS: Albuterol Sulfate 90 MCG 8 GM INHALER 2 PUFF INHALE ×2 (11:49→15:27)
[2022-02-08 12:54] LABS: Glucose, Whole Blood 177 mg/dL (60-115)
--- NOTE | 2022-02-08 13:05 | P.PNPSI_ITS ---
Subjective Subjective Date of Service: 02/08/22 Reason For Visit: anxiety Interim History: pt seen in her room, O2 via NC, seated in pablito-chair. appears tired, or drained. reports she is feeling a bit over-medicated. medications reviewed, will decrease muscle relaxant today and DC tomorrow. review BUTLER complaint, pt agrees to DC prazosin and swap in clonidine to see if BUTLER resolves. states her anxiety is OK and her sleep pretty good. feels she is nearing goals of hospitalization and would like to work with SW on dispo planning. per staff, remains on 1:1 for equipment obs. isolative, eating meals. frequent MNA due to BUTLER pain. denies SI/HI/AVH. mumbling to herself. appears sedated. appeared to sleep well tuesday night. Mental Status Exam Mental Status Exam Narrative: calm, cooperative. no PMA/PMR. speech nml in rate, amount, loudness, tone, latency. thoughts linear and logical. affect flexible, normo-intense, non- labile. no SI/HI/AVH expressed. Diagnostics Vital Signs (24Hr): Vital Signs - 24 hr 02/07/22 21:18 02/08/22 09:10 Temperature 97.7 F 97.9 F Pulse Rate 86 69 Respiratory Rate 16 16 Blood Pressure 156/69 H 127/64 Pulse Oximetry 90 L 96 Oxygen Delivery Method Nasal Cannula Room Air BMI result Body Mass Index 25.7 Labs Results: 02/03/22 19:11 02/03/22 19:11 Labs: Laboratory Results - last 48 hr 02/06/22 02/07/22 02/07/22 20:51 08:02 12:59 POC Glucose 157 H 139 H 218 H 02/07/22 02/07/22 02/08/22 17:55 21:24 08:58 POC Glucose 225 H 149 H 146 H 02/08/22 12:49 POC Glucose 177 H Imaging Radiology Impressions: ITS Impressions Head CT 02/04/22 14:33 IMPRESSION: No acute intracranial process seen. Soft Tissue Neck CT 02/04/22 14:33 IMPRESSION: The diagnostic accuracy of this examination is somewhat limited due to the absence of intravenous contrast. There is no identifiable soft tissue mass or adenopathy. Scattered atheromatous calcification involves both carotid bifurcations. 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 Medications Medications Current Medications Acetaminophen (Acetaminophen 325 Mg Tablet) 650 mg PO Q6H PRN PRN Reason: Headache Last Admin: 02/07/22 23:28 Dose: 650 mg Al Hydroxide/Mg Hydroxide (Magnesium Hydrox/Alum Hydrox 30 Ml Oral.Susp) 30 ml PO Q6H PRN PRN Reason: Heartburn/Nausea Albuterol Sulfate (Albuterol Sulfate 90 Mcg 8 Gm Inhaler) 2 puff INHALE Q4H PRN PRN Reason: for wheezing Last Admin: 02/08/22 11:49 Dose: 2 puff Albuterol/Ipratropium (Albuterol/Iprat 2.5/0.5mg 3 Ml Ampul.Neb) 3 ml INHALE Q4H PRN PRN Reason: shortness of breath or wheezing Amlodipine Besylate (Amlodipine Besylate 5 Mg Tablet) 5 mg PO DAILY [facility]; Protocol Last Admin: 02/08/22 09:23 Dose: 5 mg Aspirin (Aspirin Enteric Coated 81 Mg Tablet.Dr) 81 mg PO DAILY [facility] Last Admin: 02/08/22 09:23 Dose: 81 mg Bisacodyl (Bisacodyl 10 Mg Supp.Rect) 10 mg LA DAILY PRN PRN Reason: Constipation Capsaicin (Capsaicin 0.025% Cream 60 Gm Tube) 1 appl TOPICAL QID PRN; Protocol PRN Reason: Pain, Severe (Pain Scale 7-10) Last Admin: 02/05/22 14:50 Dose: 1 appl Clonidine HCl (Clonidine Hcl 0.1 Mg Tablet) 0.3 mg PO BEDTIME [facility]; Protocol Dextrose (Dextrose 50 % 25 Gm/50 Ml Syringe) 25 gm IVPUSH Q15M PRN; Protocol PRN Reason: per Hypoglycemia Standing Ord. Ergocalciferol (Ergocalciferol (Vitamin D2) 1,250 Mcg Capsule) 1,250 mcg PO TU [facility] Last Admin: 02/02/22 15:39 Dose: 1,250 mcg Fluticasone/Vilanterol (Fluticasone/Vilanterol 100/25 Blst.W.Dev) 1 puff INHALE RDAILY [facility] Last Admin: 02/08/22 09:20 Dose: 1 puff Gabapentin (Gabapentin 300 Mg Capsule) 900 mg PO TID [facility] Last Admin: 02/08/22 10:18 Dose: 900 mg Glucose (Glucose Gel 15 Gm Gel..Gram.) 15 gm PO Q15M PRN; Protocol PRN Reason: per Hypoglycemia Standing Ord. Guaifenesin (Guaifenesin La 600 Mg Tab.Er.12h) 600 mg PO BID [facility] Last Admin: 02/08/22 09:23 Dose: 600 mg Hydroxyzine HCl (Hydroxyzine Hcl 25 Mg Tablet) 25 mg PO Q6H PRN PRN Reason: Anxiety Last Admin: 02/04/22 08:27 Dose: 25 mg Ibuprofen (Ibuprofen 600 Mg Tablet) 600 mg PO Q6H PRN PRN Reason: Pain, Mild (Pain Scale 1-3) Last Admin: 02/07/22 12:27 Dose: 600 mg Insulin Human Lispro (Insulin Lispro 100 Unit/Ml 3 Ml Vial) 0 unit SUBCUT QIDACHS [facility]; Protocol Last Admin: 02/08/22 09:24 Dose: Not Given Lidocaine (Lidocaine 4 % Patch Adh..Patch) 1 patch TRANSDERMA DAILY [facility] Last Admin: 02/08/22 09:24 Dose: Not Given Lorazepam (Lorazepam 1 Mg Tablet) 2 mg PO BID PRN PRN Reason: Anxiety Last Admin: 02/07/22 21:49 Dose: 2 mg Magnesium Hydroxide (Milk Of Magnesia 30 Ml Oral.Susp) 30 ml PO DAILY PRN PRN Reason: Constipation Last Admin: 02/04/22 22:12 Dose: 30 ml Methadone HCl (Methadone Hcl 20 Mg/2 Ml Oral.Conc) 130 mg PO DAILY [facility] Last Admin: 02/08/22 09:25 Dose: 130 mg Mirtazapine (Mirtazapine 30 Mg Tablet) 30 mg PO BEDTIME [facility] Last Admin: 02/07/22 21:27 Dose: 30 mg Nicotine (Nicotine 21 Mg Patch.Td24) 21 mg TRANSDERMA DAILY [facility] Last Admin: 02/08/22 09:21 Dose: 21 mg Omeprazole (Omeprazole 40 Mg Capsule.Dr) 40 mg PO DAILY@0630 [facility] Last Admin: 02/08/22 09:22 Dose: 40 mg Ondansetron HCl (Ondansetron Odt 4 Mg Tab.Rapdis) 4 mg TRANSLINGU Q8H PRN PRN Reason: Nausea and Vomiting Tizanidine HCl (Tizanidine Hcl 4 Mg Tablet) 2 mg PO TID [facility] Trazodone HCl (Trazodone Hcl 50 Mg Tablet) 50 mg PO BEDTIME PRN PRN Reason: Insomnia Last Admin: 02/07/22 01:18 Dose: 50 mg Venlafaxine HCl (Venlafaxine Hcl Er 37.5 Mg Cap.Er.24h) 37.5 mg PO DAILY [facility] Last Admin: 02/08/22 09:22 Dose: 37.5 mg Allergies Allergies Allergy/AdvReac Type Severity Reaction Status Date / Time acetaminophen [Vicodin] Allergy Unknown Unknown Verified 09/24/21 15:13 hydrocodone [Vicodin] Allergy Unknown Unknown Verified 09/24/21 15:13 sumatriptan [From IMITREX] Allergy Unknown VOMITING,RA Verified 09/24/21 15:13 SH Assessment & Plan Assessment & Plan (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 1- Acute tension headache -Patient with reproducible band-like pressure of the scalp with associated blurred vision -Head CT negative 2 days ago. -Unlikely to be giant cell arteritis given bilateral nature of reproducible pressure. -Reports adverse affect with fioricet d/t caffeine and has adverse reaction to triptans. Tizanidine 2mg ordered. Can increase to 4mg q8h if needed. Advised about sedation -Improve PO hydration -Ondansetron prn for nausea 2-Abnormal cranial nerve exam -Pt demonstrates lateral deviation of left eye when testing convergence, however only occurs intermittently -Head CT negative. -Follow up on this outpt 7-Qcm-hmodfog dependent type 2 diabetes -Glucose levels uncontrolled -Recommend initiating SSI and POC glucose. Ordered -Diabetic diet advised 4-Hepatic cirrhosis -Patient reports this was diagnosed at [facility] during prior admission. No notes available at this time. 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 Signing off at this time. Please do not hesitate to call for further questions. Plan 02/03: restart home meds.? increase remeron to 30 mg at HS? start prazosin titration for nightmares and insomnia in PTSD.? medical consult and EKG for repeated episodes of dizziness, occipital pain, sweating.? Patient educated on: diagnosis, medication risk/benefits and substance abuse 02/04: no change in mgmt. 02/05: continue titration of prazosin to 3 mg at HS.? no etiology of Sx of occipital BUTLER found per medical consult.? of note, BUTLER began PRIOR TO start of prazosin.? otherwise continue current mgmt. 02/08: taper and DC muscle relaxant due to sedation. feeling better in terms of anxiety, sleeping better. BUTLER remains. agrees to DC prazosin and start clonidine at HS for insomnia/nightmares. planning for discharge. I spent __25____ minutes with the patient and/or on the patient floor today, greater than?50% of which was spent counseling/coordinating care. Reason for contiued inpatient stay Substantial Risk for: inability to function and rapid decompensation
[2022-02-08] MEDS: Insulin Lispro 100 UNIT/ML 3 ML VIAL SUBCUT ×2 (13:33→22:38)
[2022-02-08 13:42] VITALS: BP 124/68; PULSE 82; RESP 18; O2SAT 94
[2022-02-08] MEDS: LORazepam 1 MG TABLET 2 MG PO ×2 (13:42→22:21)
[2022-02-08] MEDS: TiZANidine HCL 4 MG TABLET 2 MG PO ×2 (15:15→22:19)
[2022-02-08] MEDS: Ondansetron ODT 4 MG TAB.RAPDIS TRANSLINGU (15:28)
[2022-02-08 17:17] LABS: Glucose, Whole Blood 162 mg/dL (60-115)
[2022-02-08 17:47] VITALS: BP 158/74; PULSE 86; RESP 17; TEMP 36.6; O2SAT 92
[2022-02-08] MEDS: Ibuprofen 600 MG TABLET PO (18:03)
[2022-02-08 20:55] VITALS: BP 157/73; PULSE 84; RESP 16; TEMP 36.6; O2SAT 92
[2022-02-08] MEDS: cloNIDine HCL 0.1 MG TABLET 0.3 MG PO (22:19)
[2022-02-08] MEDS: Mirtazapine 30 MG TABLET PO (22:20)
[2022-02-08 22:33] LABS: Glucose, Whole Blood 158 mg/dL (60-115)
[2022-02-09 08:30] VITALS: BP 109/64; PULSE 75; RESP 18; TEMP 36.6; O2SAT 95
[2022-02-09 09:15] LABS: Glucose, Whole Blood 134 mg/dL (60-115)
[2022-02-09] MEDS: Gabapentin 300 MG CAPSULE 900 MG PO ×3 (09:17→20:50)
[2022-02-09] MEDS: amLODIPine Besylate 5 MG TABLET PO (09:18)
[2022-02-09] MEDS: guaiFENesin LA 600 MG TAB.ER.12H PO (09:18)
[2022-02-09] MEDS: TiZANidine HCL 4 MG TABLET 2 MG PO ×2 (09:20→20:49)
[2022-02-09] MEDS: Aspirin Enteric Coated 81 MG TABLET.DR PO (09:22)
[2022-02-09] MEDS: Venlafaxine HCl ER 37.5 MG CAP.ER.24H PO (09:23)
[2022-02-09] MEDS: Nicotine 21 MG PATCH.TD24 TRANSDERMA (09:23)
[2022-02-09] MEDS: Omeprazole 40 MG CAPSULE.DR PO (09:23)
[2022-02-09] MEDS: LORazepam 1 MG TABLET 2 MG PO (09:39)
[2022-02-09] MEDS: methADONE HCl 20 MG/2 ML ORAL.CONC 130 MG PO (09:42)
[2022-02-09] MEDS: Albuterol Sulfate 90 MCG 8 GM INHALER 2 PUFF INHALE (09:55)
[2022-02-09] MEDS: Fluticasone/Vilanterol 100/25 BLST.W.DEV 1 PUFF INHALE (10:00)
[2022-02-09 12:11] LABS: Glucose, Whole Blood 200 mg/dL (60-115)
[2022-02-09] MEDS: Insulin Lispro 100 UNIT/ML 3 ML VIAL SUBCUT ×2 (12:34→21:29)
--- NOTE | 2022-02-09 14:53 | P.PNPSI_ITS ---
Subjective Subjective Date of Service: 02/09/22 Reason For Visit: anxiety Interim History: same presentation as yesterday, generally speaking. reclining in pablito chair with O2 via NC, sitter. c/o poor sleep, sweating last night, asks to have prazosin reinstated. c/o continued BUTLER in any case. planning to dishcarge . agrees to continue flexeril taper. per staff, anx/dep. isolative, withdrawn.sleeping, eating well. FSBS under 200. Mental Status Exam Mental Status Exam Narrative: calm, cooperative. no PMA/PMR. speech nml in rate, amount, loudness, tone, latency. thoughts linear and logical. affect flexible, normo-intense, non- labile. no SI/HI/AVH expressed. Diagnostics Vital Signs (24Hr): Vital Signs - 24 hr 02/08/22 17:47 02/08/22 20:55 Temperature 97.8 F 97.9 F Pulse Rate 86 84 Respiratory Rate 17 16 Blood Pressure 158/74 H 157/73 H Pulse Oximetry 92 92 Oxygen Delivery Method Nasal Cannula Nasal Cannula BMI result Body Mass Index 25.7 Labs Results: 02/03/22 19:11 02/03/22 19:11 Labs: Laboratory Results - last 48 hr 02/07/22 02/07/22 02/08/22 17:55 21:24 08:58 POC Glucose 225 H 149 H 146 H 02/08/22 02/08/22 02/08/22 12:49 17:12 22:27 POC Glucose 177 H 162 H 158 H 02/09/22 02/09/22 09:09 12:04 POC Glucose 134 H 200 H Imaging Radiology Impressions: ITS Impressions Head CT 02/04/22 14:33 IMPRESSION: No acute intracranial process seen. Soft Tissue Neck CT 02/04/22 14:33 IMPRESSION: The diagnostic accuracy of this examination is somewhat limited due to the absence of intravenous contrast. There is no identifiable soft tissue mass or adenopathy. Scattered atheromatous calcification involves both carotid bifurcations. 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 Medications Medications Current Medications Al Hydroxide/Mg Hydroxide (Magnesium Hydrox/Alum Hydrox 30 Ml Oral.Susp) 30 ml PO Q6H PRN PRN Reason: Heartburn/Nausea Albuterol Sulfate (Albuterol Sulfate 90 Mcg 8 Gm Inhaler) 2 puff INHALE Q4H PRN PRN Reason: for wheezing Last Admin: 02/09/22 09:55 Dose: 2 puff Amlodipine Besylate (Amlodipine Besylate 5 Mg Tablet) 5 mg PO DAILY [facility]; Protocol Last Admin: 02/09/22 09:18 Dose: 5 mg Aspirin (Aspirin Enteric Coated 81 Mg Tablet.Dr) 81 mg PO DAILY [facility] Last Admin: 02/09/22 09:22 Dose: 81 mg Bisacodyl (Bisacodyl 10 Mg Supp.Rect) 10 mg MN DAILY PRN PRN Reason: Constipation Capsaicin (Capsaicin 0.025% Cream 60 Gm Tube) 1 appl TOPICAL QID PRN; Protocol PRN Reason: Pain, Severe (Pain Scale 7-10) Last Admin: 02/05/22 14:50 Dose: 1 appl Dextrose (Dextrose 50 % 25 Gm/50 Ml Syringe) 25 gm IVPUSH Q15M PRN; Protocol PRN Reason: per Hypoglycemia Standing Ord. Ergocalciferol (Ergocalciferol (Vitamin D2) 1,250 Mcg Capsule) 1,250 mcg PO TU [facility] Last Admin: 02/02/22 15:39 Dose: 1,250 mcg Fluticasone/Vilanterol (Fluticasone/Vilanterol 100/25 Blst.W.Dev) 1 puff INHALE RDAILY [facility] Last Admin: 02/09/22 10:00 Dose: 1 puff Gabapentin (Gabapentin 300 Mg Capsule) 900 mg PO TID [facility] Last Admin: 02/09/22 09:17 Dose: 900 mg Glucose (Glucose Gel 15 Gm Gel..Gram.) 15 gm PO Q15M PRN; Protocol PRN Reason: per Hypoglycemia Standing Ord. Guaifenesin (Guaifenesin La 600 Mg Tab.Er.12h) 600 mg PO BID [facility] Last Admin: 02/09/22 09:18 Dose: 600 mg Hydroxyzine HCl (Hydroxyzine Hcl 25 Mg Tablet) 25 mg PO Q6H PRN PRN Reason: Anxiety Last Admin: 02/04/22 08:27 Dose: 25 mg Ibuprofen (Ibuprofen 600 Mg Tablet) 600 mg PO Q6H PRN PRN Reason: Pain, Mild (Pain Scale 1-3) Last Admin: 02/08/22 18:03 Dose: 600 mg Insulin Human Lispro (Insulin Lispro 100 Unit/Ml 3 Ml Vial) 0 unit SUBCUT QIDACHS [facility]; Protocol Last Admin: 02/09/22 12:34 Dose: 2 unit Lidocaine (Lidocaine 4 % Patch Adh..Patch) 1 patch TRANSDERMA DAILY [facility] Last Admin: 02/09/22 09:26 Dose: Not Given Lorazepam (Lorazepam 1 Mg Tablet) 2 mg PO BID PRN PRN Reason: Anxiety Last Admin: 02/09/22 09:39 Dose: 2 mg Magnesium Hydroxide (Milk Of Magnesia 30 Ml Oral.Susp) 30 ml PO DAILY PRN PRN Reason: Constipation Last Admin: 02/04/22 22:12 Dose: 30 ml Methadone HCl (Methadone Hcl 20 Mg/2 Ml Oral.Conc) 130 mg PO DAILY [facility] Last Admin: 02/09/22 09:42 Dose: 130 mg Mirtazapine (Mirtazapine 30 Mg Tablet) 30 mg PO BEDTIME [facility] Last Admin: 02/08/22 22:20 Dose: 30 mg Nicotine (Nicotine 21 Mg Patch.Td24) 21 mg TRANSDERMA DAILY [facility] Last Admin: 02/09/22 09:23 Dose: 21 mg Omeprazole (Omeprazole 40 Mg Capsule.Dr) 40 mg PO DAILY@0630 [facility] Last Admin: 02/09/22 09:23 Dose: 40 mg Ondansetron HCl (Ondansetron Odt 4 Mg Tab.Rapdis) 4 mg TRANSLINGU Q8H PRN PRN Reason: Nausea and Vomiting Last Admin: 02/08/22 15:28 Dose: 4 mg Prazosin HCl (Prazosin Hcl 1 Mg Capsule) 3 mg PO BEDTIME [facility]; Protocol Tizanidine HCl (Tizanidine Hcl 4 Mg Tablet) 2 mg PO BID [facility] Trazodone HCl (Trazodone Hcl 50 Mg Tablet) 50 mg PO BEDTIME PRN PRN Reason: Insomnia Last Admin: 02/07/22 01:18 Dose: 50 mg Venlafaxine HCl (Venlafaxine Hcl Er 37.5 Mg Cap.Er.24h) 37.5 mg PO DAILY [facility] Last Admin: 02/09/22 09:23 Dose: 37.5 mg Allergies Allergies Allergy/AdvReac Type Severity Reaction Status Date / Time acetaminophen [Vicodin] Allergy Unknown Unknown Verified 09/24/21 15:13 hydrocodone [Vicodin] Allergy Unknown Unknown Verified 09/24/21 15:13 sumatriptan [From IMITREX] Allergy Unknown VOMITING,RA Verified 09/24/21 15:13 Assessment & Plan Assessment & Plan (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 1- Acute tension headache -Patient with reproducible band-like pressure of the scalp with associated blurred vision -Head CT negative 2 days ago. -Unlikely to be giant cell arteritis given bilateral nature of reproducible pressure. -Reports adverse affect with fioricet d/t caffeine and has adverse reaction to triptans. Tizanidine 2mg ordered. Can increase to 4mg q8h if needed. Advised about sedation -Improve PO hydration -Ondansetron prn for nausea 2-Abnormal cranial nerve exam -Pt demonstrates lateral deviation of left eye when testing convergence, however only occurs intermittently -Head CT negative. -Follow up on this outpt 9-Edx-rlxaaxw dependent type 2 diabetes -Glucose levels uncontrolled -Recommend initiating SSI and POC glucose. Ordered -Diabetic diet advised 4-Hepatic cirrhosis -Patient reports this was diagnosed at [facility] during prior admission. No notes available at this time. 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 Signing off at this time. Please do not hesitate to call for further questions. Plan 02/03: restart home meds.? increase remeron to 30 mg at HS? start prazosin titration for nightmares and insomnia in PTSD.? medical consult and EKG for repeated episodes of dizziness, occipital pain, sweating.? Patient educated on: diagnosis, medication risk/benefits and substance abuse 02/04: no change in mgmt. 02/05: continue titration of prazosin to 3 mg at HS.? no etiology of Sx of occipital BUTLER found per medical consult.? of note, BUTLER began PRIOR TO start of prazosin.? otherwise continue current mgmt. 02/08: taper and DC muscle relaxant due to sedation. feeling better in terms of anxiety, sleeping better. BUTLER remains. agrees to DC prazosin and start clonidine at HS for insomnia/nightmares. planning for discharge. 02/09: continue to taper muscle relaxant. DC clonidine, reinstate prazosin at pt request. BUTLER remains. still planning for discharge. I spent __20____ minutes with the patient and/or on the patient floor today, greater than?50% of which was spent counseling/coordinating care. Reason for contiued inpatient stay Substantial Risk for: inability to function and rapid decompensation
[2022-02-09] MEDS: Ergocalciferol (Vitamin D2) 1,250 MCG CAPSULE 1250 MCG PO (15:27)
[2022-02-09] MEDS: Ondansetron ODT 4 MG TAB.RAPDIS TRANSLINGU (15:34)
[2022-02-09 20:14] VITALS: BP 121/69; PULSE 87
[2022-02-09] MEDS: Mirtazapine 30 MG TABLET PO (20:48)
[2022-02-09] MEDS: Prazosin HCL 1 MG CAPSULE 3 MG PO (20:50)
[2022-02-09 21:21] LABS: Glucose, Whole Blood 138 mg/dL (60-115)
[2022-02-09 21:21] LABS: Glucose, Whole Blood 161 mg/dL (60-115)
[2022-02-10 08:15] VITALS: BP 100/67; PULSE 89; RESP 20; TEMP 36.8; O2SAT 94
[2022-02-10] MEDS: TiZANidine HCL 4 MG TABLET 2 MG PO (08:40)
[2022-02-10] MEDS: Gabapentin 300 MG CAPSULE 900 MG PO ×3 (08:40→20:26)
[2022-02-10] MEDS: Omeprazole 40 MG CAPSULE.DR PO (08:40)
[2022-02-10] MEDS: Aspirin Enteric Coated 81 MG TABLET.DR PO (08:41)
[2022-02-10] MEDS: amLODIPine Besylate 5 MG TABLET PO (08:41)
[2022-02-10] MEDS: Venlafaxine HCl ER 37.5 MG CAP.ER.24H PO (08:41)
[2022-02-10] MEDS: methADONE HCl 20 MG/2 ML ORAL.CONC 130 MG PO (08:45)
[2022-02-10] MEDS: LORazepam 1 MG TABLET 2 MG PO (08:57)
[2022-02-10] MEDS: Ibuprofen 600 MG TABLET PO (08:57)
[2022-02-10 09:05] LABS: Glucose, Whole Blood 151 mg/dL (60-115)
[2022-02-10] MEDS: Ondansetron ODT 4 MG TAB.RAPDIS TRANSLINGU (09:14)
[2022-02-10] MEDS: Fluticasone/Vilanterol 100/25 BLST.W.DEV 1 PUFF INHALE (09:15)
[2022-02-10] MEDS: Nicotine 21 MG PATCH.TD24 TRANSDERMA (09:16)
[2022-02-10] MEDS: Insulin Lispro 100 UNIT/ML 3 ML VIAL SUBCUT ×2 (09:51→21:06)
[2022-02-10] MEDS: Albuterol Sulfate 90 MCG 8 GM INHALER 2 PUFF INHALE (13:04)
[2022-02-10 13:10] LABS: Glucose, Whole Blood 121 mg/dL (60-115)
--- NOTE | 2022-02-10 15:19 | P.PNPSI_ITS ---
Subjective Subjective Date of Service: 02/10/22 Reason For Visit: anxiety Interim History: calm, cooperative. no change in presentation from yesterday. BUTLER continues. feeling blue. poor sleep last night. agreeable to increase prazosin to 4 mg at HS, DC tizanidine to try to help with daytime sedation. planning for discharge tomorrow, referred to speak with SW about discharge details. per staff, eating well. no SI/HI/AVH. c/o BUTLER. slept eves/NOC. reported anx/dep 02/22. Mental Status Exam Mental Status Exam Narrative: calm, cooperative. no PMA/PMR. speech nml in rate, amount, loudness, tone, latency. thoughts linear and logical. affect flexible, normo-intense, non-lab ile. no SI/HI/AVH expressed. Diagnostics Vital Signs (24Hr): Vital Signs - 24 hr 02/09/22 20:14 02/10/22 08:15 Temperature 98.2 F Pulse Rate 87 89 Respiratory Rate 20 Blood Pressure 121/69 100/67 Pulse Oximetry 94 Oxygen Delivery Method Nasal Cannula Oxygen Flow Rate 2 BMI result Body Mass Index 25.7 Labs Results: 02/03/22 19:11 02/03/22 19:11 Labs: Laboratory Results - last 48 hr 02/08/22 02/08/22 02/09/22 17:12 22:27 09:09 POC Glucose 162 H 158 H 134 H 02/09/22 02/09/22 02/09/22 12:04 17:57 21:17 POC Glucose 200 H 138 H 161 H 02/10/22 02/10/22 09:01 13:02 POC Glucose 151 H 121 H Imaging Radiology Impressions: ITS Impressions Head CT 02/04/22 14:33 IMPRESSION: No acute intracranial process seen. Soft Tissue Neck CT 02/04/22 14:33 IMPRESSION: The diagnostic accuracy of this examination is somewhat limited due to the absence of intravenous contrast. There is no identifiable soft tissue mass or adenopathy. Scattered atheromatous calcification involves both carotid bifurcations. 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 Medications Medications Current Medications Al Hydroxide/Mg Hydroxide (Magnesium Hydrox/Alum Hydrox 30 Ml Oral.Susp) 30 ml PO Q6H PRN PRN Reason: Heartburn/Nausea Albuterol Sulfate (Albuterol Sulfate 90 Mcg 8 Gm Inhaler) 2 puff INHALE Q4H PRN PRN Reason: for wheezing Last Admin: 02/10/22 13:04 Dose: 2 puff Amlodipine Besylate (Amlodipine Besylate 5 Mg Tablet) 5 mg PO DAILY [facility]; Protocol Last Admin: 02/10/22 08:41 Dose: 5 mg Aspirin (Aspirin Enteric Coated 81 Mg Tablet.Dr) 81 mg PO DAILY [facility] Last Admin: 02/10/22 08:41 Dose: 81 mg Bisacodyl (Bisacodyl 10 Mg Supp.Rect) 10 mg ID DAILY PRN PRN Reason: Constipation Capsaicin (Capsaicin 0.025% Cream 60 Gm Tube) 1 appl TOPICAL QID PRN; Protocol PRN Reason: Pain, Severe (Pain Scale 7-10) Last Admin: 02/05/22 14:50 Dose: 1 appl Clotrimazole (Clotrimazole 10 Mg Haily) 10 mg MUCOUS MEM 5XD [facility] Stop: 02/24/22 06:00 Last Admin: 02/10/22 15:12 Dose: 10 mg Dextrose (Dextrose 50 % 25 Gm/50 Ml Syringe) 25 gm IVPUSH Q15M PRN; Protocol PRN Reason: per Hypoglycemia Standing Ord. Ergocalciferol (Ergocalciferol (Vitamin D2) 1,250 Mcg Capsule) 1,250 mcg PO TU [facility] Last Admin: 02/09/22 15:27 Dose: 1,250 mcg Fluticasone/Vilanterol (Fluticasone/Vilanterol 100/25 Blst.W.Dev) 1 puff INHALE RDAILY [facility] Last Admin: 02/10/22 09:15 Dose: 1 puff Gabapentin (Gabapentin 300 Mg Capsule) 900 mg PO TID [facility] Last Admin: 02/10/22 15:11 Dose: 900 mg Glucose (Glucose Gel 15 Gm Gel..Gram.) 15 gm PO Q15M PRN; Protocol PRN Reason: per Hypoglycemia Standing Ord. Guaifenesin (Guaifenesin La 600 Mg Tab.Er.12h) 600 mg PO BID [facility] Last Admin: 02/10/22 08:43 Dose: Not Given Hydroxyzine HCl (Hydroxyzine Hcl 25 Mg Tablet) 25 mg PO Q6H PRN PRN Reason: Anxiety Last Admin: 02/04/22 08:27 Dose: 25 mg Ibuprofen (Ibuprofen 600 Mg Tablet) 600 mg PO Q6H PRN PRN Reason: Pain, Mild (Pain Scale 1-3) Last Admin: 02/10/22 08:57 Dose: 600 mg Insulin Human Lispro (Insulin Lispro 100 Unit/Ml 3 Ml Vial) 0 unit SUBCUT QIDACHS [facility]; Protocol Last Admin: 02/10/22 13:03 Dose: Not Given Lidocaine (Lidocaine 4 % Patch Adh..Patch) 1 patch TRANSDERMA DAILY [facility] Last Admin: 02/10/22 08:43 Dose: Not Given Lorazepam (Lorazepam 1 Mg Tablet) 1 mg PO DAILY PRN PRN Reason: Anxiety Magnesium Hydroxide (Milk Of Magnesia 30 Ml Oral.Susp) 30 ml PO DAILY PRN PRN Reason: Constipation Last Admin: 02/04/22 22:12 Dose: 30 ml Methadone HCl (Methadone Hcl 20 Mg/2 Ml Oral.Conc) 130 mg PO DAILY [facility] Last Admin: 02/10/22 08:45 Dose: 130 mg Mirtazapine (Mirtazapine 30 Mg Tablet) 30 mg PO BEDTIME [facility] Last Admin: 02/09/22 20:48 Dose: 30 mg Nicotine (Nicotine 21 Mg Patch.Td24) 21 mg TRANSDERMA DAILY [facility] Last Admin: 02/10/22 09:16 Dose: 21 mg Omeprazole (Omeprazole 40 Mg Capsule.Dr) 40 mg PO DAILY@0630 [facility] Last Admin: 02/10/22 08:40 Dose: 40 mg Ondansetron HCl (Ondansetron Odt 4 Mg Tab.Rapdis) 4 mg TRANSLINGU Q8H PRN PRN Reason: Nausea and Vomiting Last Admin: 02/10/22 09:14 Dose: 4 mg Prazosin HCl (Prazosin Hcl 1 Mg Capsule) 4 mg PO BEDTIME [facility]; Protocol Trazodone HCl (Trazodone Hcl 50 Mg Tablet) 50 mg PO BEDTIME PRN PRN Reason: Insomnia Last Admin: 02/07/22 01:18 Dose: 50 mg Venlafaxine HCl (Venlafaxine Hcl Er 37.5 Mg Cap.Er.24h) 37.5 mg PO DAILY [facility] Last Admin: 02/10/22 08:41 Dose: 37.5 mg Allergies Allergies Allergy/AdvReac Type Severity Reaction Status Date / Time acetaminophen [Vicodin] Allergy Unknown Unknown Verified 09/24/21 15:13 hydrocodone [Vicodin] Allergy Unknown Unknown Verified 09/24/21 15:13 sumatriptan [From IMITREX] Allergy Unknown VOMITING,RA Verified 09/24/21 15:13 Assessment & Plan Assessment & Plan (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 1- Acute tension headache -Patient with reproducible band-like pressure of the scalp with associated blurred vision -Head CT negative 2 days ago. -Unlikely to be giant cell arteritis given bilateral nature of reproducible pressure. -Reports adverse affect with fioricet d/t caffeine and has adverse reaction to triptans. Tizanidine 2mg ordered. Can increase to 4mg q8h if needed. Advised about sedation -Improve PO hydration -Ondansetron prn for nausea 2-Abnormal cranial nerve exam -Pt demonstrates lateral deviation of left eye when testing convergence, however only occurs intermittently -Head CT negative. -Follow up on this outpt 1-Tqv-rinygtw dependent type 2 diabetes -Glucose levels uncontrolled -Recommend initiating SSI and POC glucose. Ordered -Diabetic diet advised 4-Hepatic cirrhosis -Patient reports this was diagnosed at [facility] during prior admission. No notes available at this time. 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 Signing off at this time. Please do not hesitate to call for further questions. Plan 02/03: restart home meds.? increase remeron to 30 mg at HS? start prazosin titration for nightmares and insomnia in PTSD.? medical consult and EKG for repeated episodes of dizziness, occipital pain, sweating.? Patient educated on: diagnosis, medication risk/benefits and substance abuse 02/04: no change in mgmt. 02/05: continue titration of prazosin to 3 mg at HS.? no etiology of Sx of occipital BUTLER found per medical consult.? of note, BUTLER began PRIOR TO start of prazosin.? otherwise continue current mgmt. 02/08: taper and DC muscle relaxant due to sedation. feeling better in terms of anxiety, sleeping better. BUTLER remains. agrees to DC prazosin and start clonidine at HS for insomnia/nightmares. planning for discharge. 02/09: continue to taper muscle relaxant. DC clonidine, reinstate prazosin at pt request. BUTLER remains. still planning for discharge. 02/10: DC muscle relaxant. increase prazosin at HS to 4 mg. BUTLER remains. DC tomorrow. despite complaints, pt appears more relaxed than at admission, with more flexible affect and less emphatic complaint. I spent ___20___ minutes with the patient and/or on the patient floor today, greater than?50% of which was spent counseling/coordinating care. Reason for contiued inpatient stay Substantial Risk for: inability to function and rapid decompensation
[2022-02-10 17:57] LABS: Glucose, Whole Blood 103 mg/dL (60-115)
[2022-02-10 19:40] VITALS: BP 113/57; PULSE 78; RESP 16; TEMP 36.6; O2SAT 98
[2022-02-10] MEDS: Mirtazapine 30 MG TABLET PO (20:26)
[2022-02-10] MEDS: Magnesium Hydrox/Alum Hydrox 30 ML ORAL.SUSP PO (20:29)
[2022-02-10] MEDS: LORazepam 1 MG TABLET PO (20:38)
[2022-02-10 20:58] LABS: Glucose, Whole Blood 154 mg/dL (60-115)
[2022-02-10] MEDS: Prazosin HCL 1 MG CAPSULE 3 MG PO (23:26)
[2022-02-10 23:30] VITALS: BP 131/60; PULSE 78; RESP 16; O2SAT 92
[2022-02-11] MEDS: hydrOXYzine HCL 25 MG TABLET PO (04:13)
[2022-02-11] MEDS: Ibuprofen 600 MG TABLET PO (04:13)
[2022-02-11 08:35] LABS: Glucose, Whole Blood 126 mg/dL (60-115)
[2022-02-11 08:39] VITALS: BP 115/57; PULSE 76; RESP 16; TEMP 36.6; O2SAT 96
[2022-02-11] MEDS: methADONE HCl 20 MG/2 ML ORAL.CONC 130 MG PO (08:44)
[2022-02-11] MEDS: Aspirin Enteric Coated 81 MG TABLET.DR PO (08:47)
[2022-02-11] MEDS: Gabapentin 300 MG CAPSULE 900 MG PO (08:47)
[2022-02-11] MEDS: Venlafaxine HCl ER 37.5 MG CAP.ER.24H PO (08:48)
[2022-02-11] MEDS: Omeprazole 40 MG CAPSULE.DR PO (08:48)
[2022-02-11] MEDS: Nicotine 21 MG PATCH.TD24 TRANSDERMA (08:55)
[2022-02-11] MEDS: LORazepam 1 MG TABLET PO (10:16)
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
--- OUTSIDE RECORDS SUMMARY | 2022-02-24 14:43 | XMS_ITS | Continuity of Care Document ---
:1965 Author Organization [facility] Address [address] [place] [address]- Care Team Providers Name Role Phone Jair Lemus MD Primary Care Physician [place] [facility] [place] - 02/13/[address] [address]- Encounter Diagnosis Unstable angina (Final) - 02/12/21 Discharge Disposition: A-D/C Home Attending Physician: Maribell Ji MD Admitting Physician: Galileo Guajardo MD Referring Physician: Not on Staff, Referring MD Allergies, Adverse Reactions, Alerts Substance Reaction Severity Status Imitrex Active Vicodin Active Immunizations Given and Recorded Vaccine Date Status Refusal Reason influenza virus vaccine, inactivated 02/13/21 Given influenza virus vaccine, inactivated 03/08/16 Recorded influenza virus vaccine, inactivated1 02/20/13 Given influenza virus vaccine, inactivated2 03/07/12 Given influenza virus vaccine, inactivated 01/21/11 Recorded influenza virus vaccine, inactivated 02/13/10 Recorded influenza virus vaccine, inactivated 02/12/09 Recorded influenza virus vaccine, inactivated 02/19/08 Recorded influenza virus vaccine, inactivated 03/30/07 Recorded SARS-CoV-2 (COVID-19) mRNA BNT-162b2 vac3 11/20/20 Given SARS-CoV-2 (COVID-19) mRNA BNT-162b2 vac 09/12/20 Recorde d pneumococcal 23-valent vaccine 10/12/18 Recorded pneumococcal 23-valent vaccine4 01/17/13 Given tetanus/diphtheria/pertussis, acel(Tdap) 10/12/18 Recorde d tetanus/diphtheria/pertussis, acel(Tdap) 03/08/16 Recorde d tetanus/diphtheria/pertussis, acel(Tdap)5 09/27/12 Given tetanus/diphtheria/pertussis, acel(Tdap) 09/06/08 Recorde d 1Admin Note: vis given 12/08/201271829Pmibl Note: VIS [id number] Comment: Patient verbally consented to receive [id number] Note: vis give dated 02/18/095Admin Note: vis given dated 06/08/2011 Medications Advair Diskus 250 mcg-50 mcg inhalation powder 1, puffs, Inhalation, 2 times a day, # 180 each, Refills 3, Tot. Refills 3, Maintenance, 11/21/20 9:19:00 EDT, Powder, Route to Pharmacy Electronically, [id number], [facility] #[id number] Start Date: 11/21/20 Status: Orderedalbuterol 0.083% inhalation solution 3 mL = 2.5 mg, Inhalation, Every 6 hours, # 360 mL, 1 Refills, Maintenance Start Date: 10/27/12 Stop Date: 12/26/12 Status: Orderedalbuterol CFC free 90 mcg/inh inhalation aerosol 1 puffs, Inhalation, 4 times a day, PRN for wheezing, # 25 Gm, 11 Refills, Maintenance, Aerosol, 1 puffs Inhalation 4 times a day,PRN:for wheezing Start Date: 02/20/13 Status: Orderedascorbic acid 500 mg oral tablet, chewable 1 tablet = 500 mg, Chew, Daily, for vit C deficiency, # 30 tablet, 2 Refills, Maintenance, Chew Tablet Start Date: 10/27/12 Stop Date: 01/25/13 Status: Orderedaspirin 81 mg oral delayed release tablet 81 mg, 1, tablet, By Mouth, Daily, # 30 tablet, Refills 0, Maintenance, 11/18/20 18:27:00 EDT, Partial fill upon patient request if the prescription is for a schedule II opioid drug. Start Date: 11/18/20 Status: OrderedBilateral LE Knee High Flat Knit CCII 30-40 mmHg Compression Stockings Bilateral LE Knee High Flat Knit CCII 30-40 mmHg Compression Stockings, See Instructions, # 2 pair, Refills 2, Tot. Refills 2, Maintenance, Wear Daily All Day Dx-Lymphedema, 10/05/12 12:26:27 Start Date: 10/05/12 Status: OrderedDuoNeb 3 mg-0.5 mg/3 ml inhalation solution 3 mL, Inhalation, 2 times a day, # 180 mL, 3 Refills, Maintenance, Solution, 3 mL Inhalation 2 timesa day,x30 days Start Date: 02/20/13 Stop Date: 06/20/13 Status: OrderedEffexor By Mouth, 0 Refills, Maintenance, 02/12/21 22:50:00 EDT, Partial fill upon patient request if the prescription is for a schedule II opioid drug. Start Date: 02/12/21 Status: Orderedergocalciferol 80533 iu oral capsule 1 capsule = 50,000 International_Units, By Mouth, Every week, Please take one capsule evry week for 8 weeks. Then can have 1000 IU daily., # 8 capsule, 0 Refills, Maintenance Start Date: 09/27/12 Status: Orderedgabapentin 400 mg oral capsule 800 mg, 2, capsule, By Mouth, 3 times a day, # 15 capsule, Refills 0, Maintenance, 09/01/18 4:41:20 EDT Start Date: 09/01/18 Status: Orderedgabapentin 400 mg oral capsule 800 mg, Capsule, By Mouth, 02/13/21 9:00:00 EDT Start Date: 02/13/21 Stop Date: 02/13/21 Status: CompletedLORazepam 1 mg oral tablet 1 tablet = 1 mg, By Mouth, 3 times a day, PRN for anxiety, 0 Refills, Maintenance, 12/05/20 11:55:00EDT, Tablet, Partial fill upon patient request if the prescription is for a schedule II opioid drug. Start Date: 12/05/20 Status: OrderedMethadone = 45 mg, By Mouth, Daily, 0 Refills, Maintenance, 12/08/20 14:18:00 EDT, Partial fill upon patient request if the prescription is for a schedule II opioid drug. Start Date: 12/08/20 Status: OrderedMethadone Liquid 75 mg, Solution, By Mouth, 02/13/21 9:00:00 EDT Start Date: 02/13/21 Stop Date: 02/13/21 Status: Completedmirtazapine 15 mg oral tablet 0.5 tablet = 7.5 mg, By Mouth, Daily at bedtime, # 15 tablet, 0 Refills, Maintenance, 11/21/20 9:21:00 EDT, Tablet, [id number], Partial fill upon patient request if the prescription is for a schedule II opioid drug. Start Date: 11/21/20 Status: Orderednicotine 21 mg/24 hr transdermal film, extended release 1 patch, Topically, Daily, # 30 patch, 0 Refills, Maintenance, 12/08/20 14:10:00 EDT, Patch, Partialfill upon patient request if the prescription is for a schedule II opioid drug. Start Date: 12/08/20 Status: Orderednitroglycerin 0.4 mg sublingual tablet = 0.4 mg, Sublingual, Every 5 minutes, PRN Chest Pain, # 30 tablet, 0 Refills, Maintenance, 219:21:00 EDT, Tablet, [id number], Partial fill upon patient request if the prescription is for a schedule II opioid drug. Start Date: 11/21/20 Stop Date: 12/21/20 Status: Ordered Problem List Condition Effective Dates Status Health Status Informant Anxiety(Confirmed) Active Asthma(Confirmed) Active Chronic obstructive pulmonary disease Active (COPD)(Confirmed) Depression(Confirmed) Active Heart murmur(Confirmed) Active Hernia, ventral(Confirmed) Active History of kidney stones(Confirmed) Active Lymphedema of leg(Confirmed) Active Hot Flashes(Confirmed) Active Sciatica(Confirmed) Active Tobacco dependence syndrome(Confirmed) Active Results Radiology Reports Exam Date Time Procedure Performing Provider Status 02/12/21 5:17 PM Chest Portable Annabelle Gibson; Auth (Verified) Notes:(Chest Portable) Reason For Exam: Shortness of BreathRESULT: Chest Portable Chest Portable Reason: Shortness of Breath; Clinical Question(s): CHF COMPARISON: 12/04/2020 FINDINGS: LINES AND TUBES: None. LUNGS AND PLEURA: Central vascular markings are prominent. No focal opacity or volume loss. No pleural effusion. No pneumothorax. HEART, MEDIASTINUM AND MAURICIO: Heart is at the upper limits of normal for size. Normal upper mediastinal and hilar contour. BONES AND SOFT TISSUES: No acute abnormality. IMPRESSION: Borderline cardiac enlargement and mild pulmonary vascular congestion without overt CHF. Improved aeration of left lung base compared to last study. No pneumonia. WSN: [id number] Ordering Physician: Adan Roland Dictated By: Markus De León MD Dictated Date/Time: 02/12/21 5:25 pm Reviewed By: Markus De León MD Signed By: Markus De León MD Signed Date/Time: 02/12/21 5:25 pm Transcribed By: BECKA Transcribed Date/Time: 02/12/21 5:24 pm Vital Signs Most recent to oldest 1 2 3 [Reference Range]: Height 153 cm 153 cm 153 cm (02/13/21 7:23 AM) (02/13/21 4:00 AM) (02/13/21 12: 00 AM) Weight 72 kg (02/12/21 10:20 PM) Oxygen Saturation [94-100 %] 93 % 96 % 94 % *L* (02/13/21 4:00 AM) (02/13/21 12:00 AM) (02/13/21 7:23 AM) Pulse Rate [55-90 bpm] 66 bpm 70 bpm 70 bpm (02/13/21 7:23 AM) (02/13/21 4:00 AM) (02/13/21 12: 00 AM) Body Mass Index [18.5-24.99] 30.76 *>HHI* (02/12/21 10:20 PM) Blood Pressure [90-138/55-84 122/58 mm Hg 149/65 mm Hg 109 /54 mm Hg mm Hg] (02/13/21 7:23 AM) *H* (02/13/21 12:00 AM) (02/13/21 4:00 AM) Respiratory Rate [16-30 18 br/min 18 br/min 16 br/mi n br/min] (02/13/21 9:11 AM) (02/13/21 9:08 AM) (02/13/21 8:1 1 AM) Temperature [96.8-100.4 DegF] 98.2 DegF 98.5 DegF 98 .5 DegF (02/13/21 7:23 AM) (02/13/21 4:00 AM) (02/13/21 12: 00 AM) Liters per Minute 2 L/min 2 L/min 2 L/min (02/13/21 7:23 AM) (02/13/21 4:00 AM) (02/13/21 12: 00 AM) Mode of Delivery (Oxygen) Nasal cannula Nasal cannula Nasal cannula (02/13/21 7:23 AM) (02/13/21 4:00 AM) (02/13/21 12: 00 AM) Blood pressure sites Arm, left Arm, left Arm, left (02/13/21 7:23 AM) (02/13/21 4:00 AM) (02/13/21 12: 00 AM) Temperature Route Oral Oral Oral (02/13/21 7:23 AM) (02/13/21 4:00 AM) (02/13/21 12: 00 AM) Dry Weight 72 kg (02/12/21 10:20 PM) Weight Obtained Via Bed scale (02/12/21 10:20 PM) Dry Weight Obtained Via Bed scale (02/12/21 10:20 PM) Social History Social History Type Response Smoking Status Current every day smoker entered on: 12/12/13 Sex
--- OUTSIDE RECORDS SUMMARY | 2022-02-24 14:43 | XMS_ITS | Continuity of Care Document ---
:1965 Author Organization [facility] Address [address] [place] [id number]- Care Team Providers Name Role Phone Mariah HERRERA, Jair Lozano Primary Care Physician Encounter [facility] [place] Date(s): 09/03/21 - 09/10/[address] [id number] Encounter Diagnosis Acute hepatitis (Final) - 09/03/21 Alcohol withdrawal syndrome without complication (Final) - 09/03/21 Acute UTI (Final) - 09/03/21 Splenic vein thrombosis (Final) - 09/03/21 Discharge Disposition: A-D/C Home Attending Physician: Lary Cisneros DO Admitting Physician: Hank Perera MD Referring Physician: Not on Staff, Referring [...] 09/06/08 Recorde d 1Admin Note: vis given 12/08/201273200Ylzlf Note: VIS 7-123Result Comment: Patient verbally consented to receive [id number] Note: vis give dated 02/18/095Admin Note: vis given dated 06/08/2011 Medications Advair Diskus 250 mcg-50 mcg inhalation powder 1, puffs, Inhalation, 2 times a day, # 180 each, Refills 3, Tot. Refills 3, Maintenance, 11/21/20 9:19:00 EDT, Powder, Route to Pharmacy Electronically, [id number], [facility]/pharmacy #[id number] Start Date: 11/21/20 Status: Orderedalbuterol CFC free 90 mcg/inh inhalation aerosol 1 puffs, Inhalation, 4 times a day, PRN for wheezing, # 25 Gm, 11 Refills, Maintenance, Aerosol, 1 puffs Inhalation 4 times a day,PRN:for wheezing Start Date: 02/20/13 Status: OrderedamLODIPine 5 mg oral tablet 1 tablet = 5 mg, By Mouth, Daily, # 30 tablet, 0 Refills, Maintenance, 04/11/21 21:49:00 EST, Tablet, Partial fill upon patient request if the prescription is for a schedule II opioid drug. Start Date: 04/11/21 Status: Orderedamoxicillin-clavulanate 875 mg-125 mg oral tablet 1 tablet, By Mouth, 2 times a day, # 8 tablet, 0 Refills, Acute 09/14/21 9:45:00 EDT, 09/10/21 7:37:00 EDT, Tablet, [facility], Partial fill upon patient request if the prescription is for a schedule II opioid drug., 155, cm, 09/07/21 1:... Start Date: 09/10/21 Stop Date: 09/14/21 Status: Orderedascorbic acid 500 mg oral tablet, [...] II opioid drug. Start Date: 11/18/20 Status: Orderedcyclobenzaprine 10 mg oral tablet 10 mg, 1, tablet, By Mouth, 3 times a day, PRN, # 30 tablet, Refills 0, Maintenance, for spasm, 04/11/21 21:50:00 EST, Partial fill upon patient request if the prescription is for a schedule II opioid drug. Start Date: 04/11/21 Status: OrderedDuoNeb 3 mg-0.5 mg/3 ml inhalation solution 3 mL, Inhalation, 2 times a day, # 180 mL, 3 Refills, Maintenance, Solution, 3 mL Inhalation 2 timesa day,x30 days Start Date: 02/20/13 Stop Date: 06/20/13 Status: Orderedergocalciferol 92143 iu oral capsule 1 capsule = 50,000 International_Units, By Mouth, Every week, Please take one capsule evry week for 8 weeks. Then can have 1000 IU daily., # 8 capsule, 0 Refills, Maintenance Start Date: 09/27/12 Status: Orderedfolic acid 1 mg oral tablet 1 mg, 1, tablet, By Mouth, Daily, # 30 tablet, Refills 0, Tot. Refills 0, Maintenance, 09/10/21 7:38:00 EDT, Route to Pharmacy Electronically, [facility], Partial fill upon patient request if the prescription is for a schedule II opioid... Start Date: 09/10/21 Status: Orderedgabapentin 400 mg oral capsule 800 mg, 2, capsule, By Mouth, 3 times a day, # 15 capsule, Refills 0, Maintenance, 09/01/18 4:41:20 EDT Start Date: 09/01/18 Status: OrderedLORazepam 2 mg oral tablet 1 tablet = 2 mg, By Mouth, 2 times a day, PRN Anxiety, 0 Refills, Maintenance, 04/13/21 9:59:00 EST,Tablet, Partial fill upon patient request if the prescription is for a schedule II opioid drug. Start Date: 04/13/21 Status: Orderedmethadone 10 mg oral tablet = 95 mg, By Mouth, Daily, 0 Refills, Maintenance, 04/13/21 9:59:00 EST, Tablet, Partial fill upon patient request if the prescription is for a schedule II opioid drug. Start Date: 04/13/21 Status: OrderedMethadone Liquid 50 mg, Solution, By Mouth, 09/10/21 9:00:00 EDT Start Date: 09/10/21 Stop Date: 09/10/21 Status: CompletedMethadone Liquid 45 mg, Solution, By Mouth, Once, neesd the full dose prior to her discharge today, Routine, 09/10/2209:00:00 EDT, Stop date 09/10/21 10:00:00 EDT Start Date: 09/10/21 Stop Date: 09/10/21 Status: Completedmirtazapine 15 mg oral tablet 1 tablet = 15 mg, By Mouth, Daily at bedtime, # 30 tablet, 0 Refills, Maintenance, 04/11/21 21:45:00EST, Tablet, Partial fill upon patient request if the prescription is for a schedule II opioid drug. Start Date: 04/11/21 Status: OrderedNicoderm C-Q Clear 14 mg/24 hr transdermal film, extended release 1 patch, Topically, Daily, # 30 patch, 0 Refills, Acute 10/11/21 7:40:00 EDT, 09/10/21 7:39:00 EDT, Patch, [facility], Partial fill upon patient request if the prescription is for a schedule II opioid drug., 155, cm, 09/07/21 1:53:00 EDT... Start Date: 09/10/21 Stop Date: 10/11/21 Status: Orderedomeprazole 20 mg oral enteric coated capsule 1 capsule = 20 mg, By Mouth, Daily, # 30 capsule, 0 Refills, Maintenance, 04/11/21 21:51:00 EST, EC Capsule, Partial fill upon patient request if the prescription is for a schedule II opioid drug. Start Date: 04/11/21 Status: OrderedProtonix 40 mg oral delayed release tablet = 40 mg, By Mouth, Daily, # 60 capsule, 0 Refills, Maintenance, 09/10/21 7:38:00 EDT, EC Tablet, 155, cm, 09/07/21 1:53:00 EDT, Height, 62.8, kg, 06/02/21 0:14:00 EST, Dry Weight Start Date: 09/10/21 Status: Orderedpyridoxine 50 mg oral tablet 50 mg, 1, tablet, By Mouth, Daily, # 100 tablet, Refills 0, Tot. Refills 0, Maintenance, 09/10/21 7:39:00 EDT, Route to Pharmacy Electronically, [facility], Partial fill upon patient request if the prescription is for a schedule II opioi... Start Date: 09/10/21 Status: Orderedthiamine 100 mg oral tablet 100 mg, 1, tablet, By Mouth, Daily, # 90 tablet, Refills 0, Tot. Refills 0, Maintenance, 09/10/21 7:39:00 EDT, Route to Pharmacy Electronically, [facility], Partial fill upon patient request if the prescription is for a schedule II opioi... Start Date: 09/10/21 Status: Orderedvenlafaxine 37.5 mg oral capsule, extended release 1 capsule = 37.5 mg, By Mouth, Daily, # 30 capsule, 0 Refills, Maintenance, 04/11/21 21:48:00 EST, ER Capsule, Partial fill upon patient request if the prescription is for a schedule II opioid drug. Start Date: 04/11/21 Status: Ordered Problem List Condition Effective Dates Status Health Status Informant Anxiety(Confirmed) Active Asthma(Confirmed) Active Chronic obstructive pulmonary disease Active (COPD)(Confirmed) Depression(Confirmed) Active Heart murmur(Confirmed) Active Hernia, ventral(Confirmed) Active History of kidney stones(Confirmed) Active Lymphedema of leg(Confirmed) Active Hot Flashes(Confirmed) Active Obese class I(Confirmed) Active Sciatica(Confirmed) Active Tobacco dependence syndrome(Confirmed) Active Results Orders for Microbiology Reports Name Date Blood Culture 09/04/21 Blood Culture 09/03/21 Blood Culture #2 09/03/21 Urine Culture (URINE CULTURE) 09/03/21 Microbiology Reports TEST:Blood Culture STATUS:Auth (Verified) BODY SITE: SOURCE:Blood COLLECTED DATE/TIME:09/04/21 1:46 PMBlood Culture SPECIMEN DESCRIPTION : BLOOD NO SITE SPECIAL REQUESTS : NONE CULTURE : NO GROWTH 5 DAYS. REPORT STATUS : FINAL 09/09/2021TEST:Blood Culture, Second Order STATUS:Auth (Verified) BODY SITE: SOURCE:Blood COLLECTED DATE/TIME:09/03/21 3:50 PMBlood Culture, Second Order SPECIMEN DESCRIPTION : BLOOD RAC SPECIAL REQUESTS : CRITICAL VALUE CALLED AND VERIFIED BY READBACK FOR: [place] [address], EW, 09/04/21, 0800, BY TECH 868. CULTURE : ESCHERICHIA COLI Escherichia coli was identified by multi-plex PCR REPORT STATUS : FINAL 09/06/2021 ORGANISM ESCHERICHIA COLI METHOD MIN. INHIB. CONC. (MCG/ML) AMPICILLIN RESISTANT AMPICILLIN/SULBACTAM INTERMEDIATE AMOXICILLIN/CLAVULAN SUSCEPTIBLE CEFAZOLIN INTERMEDIATE CEFEPIME SUSCEPTIBLE CEFTRIAXONE SUSCEPTIBLE CIPROFLOXACIN SUSCEPTIBLE ERTAPENEM SUSCEPTIBLE GENTAMICIN SUSCEPTIBLE LEVOFLOXACIN SUSCEPTIBLE MEROPENEM SUSCEPTIBLE PIPERACILLIN/TAZOBAC SUSCEPTIBLE TRIMETH/SULFAMETHOX SUSCEPTIBLE TETRACYCLINE SUSCEPTIBLETEST:Blood Culture STATUS:Auth (Verified) BODY SITE: SOURCE:Blood COLLECTED DATE/TIME:09/03/21 3:40 PMBlood Culture SPECIMEN DESCRIPTION : BLOOD RFA SPECIAL REQUESTS : NONE CULTURE : NO GROWTH 5 DAYS. REPORT STATUS : FINAL 09/08/2021TEST:Urine Culture STATUS:Auth (Verified) BODY SITE: SOURCE:URINE COLLECTED DATE/TIME:09/03/21 1:39 PMUrine Culture SPECIMEN DESCRIPTION : URINE SPECIAL REQUESTS : NONE CULTURE : Mixed bacterial navi, indicative of urogenital contamination. REPORT STATUS : FINAL 2Radiology Reports Exam Date Time Procedure Performing Provider Status 09/08/21 10:54 AM Abdomen AP Marta David; Auth (Verif ied) Notes:(Abdomen AP) Reason For Exam: DistentionRESULT: XR Abdomen AP XR Abdomen AP INDICATION/CLINICAL QUESTION: Distention; Clinical Question(s): Obstruction COMPARISON: None FINDINGS: There is distal migration of previous oral contrast material the majority of which is currently in the left colon. More proximal colonic dilatation appears somewhat improved. IMPRESSION: Improving ileus versus obstruction. WSN: [id number] Ordering Physician: Myles De nAda Dictated By: César Barros MD Dictated Date/Time: 09/08/21 10:57 a Reviewed By: César Barros MD Signed By: César Barros MD Signed Date/Time: 09/08/21 10:57 am Transcribed By: BECKA Transcribed Date/Time: 09/08/21 10:55 am Exam Date Time Procedure Performing Provider Status 09/07/21 4:00 PM Abdomen AP Dolly Nieves (Verified) Notes:(Abdomen AP) Reason For Exam: DistentionRESULT: XR Abdomen AP XR Abdomen AP 1 view INDICATION/CLINICAL QUESTION: Reason: Distention; Clinical Question(s): Obstruction COMPARISON: CT 09/06/2021 FINDINGS: Diffuse gaseous distention of the large bowel. No evidence of pneumoperitoneum. No acute bone findings. IMPRESSION: Gaseous distention of the large bowel. No supine evidence of pneumoperitoneum. WSN: [id number] Ordering Physician: Cornel Silver Dictated By: Markus Odell MD Dictated Date/Time: 09/07/21 4:14 pm Reviewed By: Markus Odell MD Signed By: Markus Odell MD Signed Date/Time: 09/07/21 4:14 pm Transcribed By: BECKA Transcribed Date/Time: 09/07/21 4:14 pm Exam Date Time Procedure Performing Provider Status 09/07/21 3:59 PM Barium Enema W or W/O KUB Dloly Nieves (Verified) Notes:(Barium Enema W or W/O KUB) Reason For Exam: Other:RESULT: Barium Enema W or W/O KUB EXAMINATION: Aqueous Contrast Enema CLINICAL HISTORY: ? Bowel obstruction IMAGING TECHNIQUE: A water-solublecontrast enema was performed by Hoang Phelps PA-C. A standard rectal catheter was inserted, and, retention balloon inflated. Omnipaque 300 was introduced via gravityto the patient tolerance. COMPARISON: CT abdomen pelvis 09/06/2021 FLUOROSCOPY TIME: 7.6 seconds Dose Area Product (DAP): 63864.7 uGy*m2 FINDINGS: Initial imaging demonstrates hepatomegaly with gaseous distention of the transverse colon up to 8 cmin diameter. As contrast opacifies the descending colon there is intermittent spasm of a roughly 4 cm segment with edematous mucosa suggestive of colitis consistent with CT findings. There is significant superimposition of the right colon due to large right lobe of liver limiting our evaluation. At this point, thepatient's tolerance to examination declined and she requested we terminate the exam. The contrast was drained and the patient was assisted to the bathroom. Subsequent imaging demonstrated adequate evacuation of contrast. IMPRESSION: 1. Findings compatible with colitis as noted on CT. 2. No evidence of mass or large bowel obstruction, however examination likely incomplete and limitedby patient's lack of tolerance to examination and significant superimposition of right lower quadrant bowel loops secondary to hepatomegaly. Contrast does appear to extend to the cecum, though cannot confirm that the cecum is completely filled as contrast does not reflux into the small bowel or appendix. By undersigning and finalizing the report, the attending radiologist confirms he/she has personally reviewed and interpreted the images and agrees with the description of the findings. I have personally reviewed the images and I agree with this report. WSN: [id number] Ordering Physician: Jamari Briones Dictated By: Renaldo Swann Dictated Date/Time: 09/07/21 4:14 pm Reviewed By: Markus Odell MD Signed By: Markus Odell MD Signed Date/Time: 09/07/21 4:19 pm Transcribed By: BECKA Transcribed Date/Time: 09/07/21 4:06 pm Exam Date Time Procedure Performing Provider Status 09/06/21 9:44 AM Abdomen AP Rigo Rolon; Joao (Verified) Notes:(Abdomen AP) Reason For Exam: Other:RESULT: XR Abdomen AP XR Abdomen AP INDICATION/CLINICAL QUESTION: Reason: Other:; Clinical Question(s): Other:; Order Comment: ngt placement lani please / Other: TECHNIQUE: AP image at 0928 hours 09/06/2021. COMPARISON: Same day FINDINGS: NG tube extends well into the stomach.. The stomach is not distended. Some dilated loops of small bowel are partially included on the lowest part of this exam. Visualized part of the chest show some mild bibasilar disease. Bones: No acute bony abnormality. IMPRESSION: 1. NG tube in satisfactory position and without gastric distention.. WSN: [id number] Ordering Physician: Roxanne Mcwilliams Dictated By: Malcolm Jean Baptiste MD Dictated Date/Time: 09/06/21 3:30 pm Reviewed By: Malcolm Jean Baptiste MD Signed By: Malcolm Jean Baptiste MD Signed Date/Time: 09/06/21 3:30 pm Transcribed By: BECKA Transcribed Date/Time: 09/06/21 3:29 pm Exam Date Time Procedure Performing Provider Status 09/06/21 6:12 AM Abdomen AP Pina Phelps; Auth ([facility]) Notes:(Abdomen AP) Reason For Exam: DistentionRESULT: XR Abdomen AP XR Abdomen AP 1 view INDICATION/CLINICAL QUESTION: Reason: Distention; Clinical Question(s): Obstruction COMPARISON: None FINDINGS: Single AP view demonstrates multiple dilated air-filled small bowel loops. Free intraperitoneal air cannot be assessed on supine view alone. No acute bone findings. IMPRESSION: Multiple dilated air-filled small bowel loops concerning for bowel obstruction versus ileus. Free intraperitoneal air cannot be assessed on supine view. WSN: [id number] Ordering Physician: Berta Sullivan Dictated By: Noelle Casanova MD Dictated Date/Time: 09/06/21 2:00 pm Reviewed By: Noelle Casanova MD Signed By: Noelle Casanova MD Signed Date/Time: 09/06/21 2:00 pm Transcribed By: BECKA Transcribed Date/Time: 09/06/21 1:59 pm Exam Date Time Procedure Performing Provider Status 09/04/21 12:07 PM Chest Portable Kimberly Dowd; Auth (Ve rified) Notes:(Chest Portable) Reason For Exam: Shortness of BreathRESULT: Chest Portable Chest Portable Reason: Shortness of Breath; Clinical Question(s): Pneumonia COMPARISON: Chest radiograph 04/10/2021 FINDINGS: No acute cardiopulmonary process. IMPRESSION: No acute cardiopulmonary process I have personally reviewed the images and I agree with this report. WSN: [id number] Ordering Physician: Roxanne Mcwilliams Dictated By: Dilshad Hollingsworth DO Dictated Date/Time: 09/04/21 2:04 pm Reviewed By: Chi Callaway MD Signed By: Chi Callaway MD Signed Date/Time: 09/04/21 2:09 pm Transcribed By: BECKA Transcribed Date/Time: 09/04/21 1:17 pm Vital Signs Most recent to oldest 1 2 3 [Reference Range]: Height 155 cm 155 cm 155 cm (09/10/21 11:40 AM) (09/07/21 2:00 AM) (09/04/21 12 : PM) Weight 78.7 kg (09/04/21: PM) Oxygen Saturation [94-100 %] 100 % 96 % 99 % (09/10/21 11:40 AM) (09/10/21 8:00 AM) (09/09/21 8: 00 PM) Pulse Rate [55-90 bpm] 58 bpm 101 bpm 106 bpm (09/10/21 11:40 AM) *H* *H* (09/10/21 8:00 AM) (09/09/21 8:00 PM) Body Mass Index [18.5-24.99] 32.76 *>HHI* (09/04/21: PM) Blood Pressure [90-138/55-84 122/84 mm Hg 124/71 mm Hg 137 /67 mm Hg mm Hg] (09/10/21 11:40 AM) (09/10/21 8:00 AM) (09/09/21 8: 00 PM) Respiratory Rate [16-30 20 br/min 20 br/min 18 br/mi n br/min] (09/10/21 11:40 AM) (09/10/21 10:02 AM) (09/10/21 8 :21 AM) Temperature [96.8-100.4 97.7 DegF 99.4 DegF 98.7 Deg F DegF] (09/10/21 11:40 AM) (09/10/21 8:00 AM) (09/09/21 8: 00 PM) Liters per Minute 2 L/min 2 L/min 2 L/min (09/10/21 8:00 AM) (09/09/21 8:00 PM) (09/09/21 4:0 0 PM) Mode of Delivery (Oxygen) Room air Nasal cannula Nasal cannula (09/10/21 11:40 AM) (09/10/21 8:00 AM) (09/09/21 8: 00 PM) Blood pressure sites Arm, right Arm, right Arm, right (09/10/21 8:00 AM) (09/09/21 8:00 PM) (09/09/21 4:0 0 PM) Temperature Route Oral Oral Oral (09/10/21 11:40 AM) (09/10/21 8:00 AM) (09/09/21 8: 00 PM) Weight Obtained Via Bed scale (09/04/21 12:27 PM) Social History Social History Type Response Smoking Status Former smoker, quit more charo n 30 days ago entered on: 06/02/21 Sex
--- OUTSIDE RECORDS SUMMARY | 2022-02-24 14:43 | XMS_ITS | Continuity of Care Document ---
:1965 Author Organization [facility] Address [address] [place] [address]- Care Team Providers Name Role Phone Mariah HERRERA, Jair Lozano Primary Care Physician Encounter [facility] [place] Date(s): 04/10/21 - 04/13/[address] [address]- Encounter Diagnosis Cocaine use (Final) - 04/11/21 Discharge Disposition: A-D/C Home Attending Physician: Trudy HERRERA, Jayce Pantoja Admitting Physician: Ernestina Stanton MD Referring Physician: Not on Staff, Referring [...] 09/06/08 Recorde d 1Admin Note: vis given 12/08/201212595Tockj Note: VIS 7-123Result Comment: Patient verbally consented to receive [id number] Note: vis give dated 02/18/095Admin Note: vis given dated 06/08/2011 Medications Advair Diskus 250 mcg-50 mcg inhalation powder 1, puffs, Inhalation, 2 times a day, # 180 each, Refills 3, Tot. Refills 3, Maintenance, 11/21/20 9:19:00 EDT, Powder, Route to Pharmacy Electronically, [id number], [facility]/pharmacy #[id number] Start Date: 11/21/20 Status: Orderedalbuterol CFC [...] II opioid drug. Start Date: 04/11/21 Status: Orderedascorbic acid 500 mg oral tablet, [...] Date: 02/20/13 Stop Date: 06/20/13 Status: Orderedergocalciferol 83400 iu oral capsule 1 capsule = 50,000 International_Units, By Mouth, Every week, Please take one capsule evry week for 8 weeks. Then can have 1000 IU daily., # 8 capsule, 0 Refills, Maintenance Start Date: 09/27/12 Status: Orderedgabapentin 400 mg oral capsule 800 mg, Capsule, By Mouth, 04/13/21 9:00:00 EST Start Date: 04/13/21 Stop Date: 04/13/21 Status: Completedgabapentin 400 mg oral capsule 800 mg, 2, [...] 04/13/21 Status: Orderedmethadone 10 mg oral tablet 85 mg, Tablet, By Mouth, dose verified bt YONI Levy, 04/13/21 9:00:00 EST Start Date: 04/13/21 Stop Date: 04/13/21 Status: Completedmethadone 10 mg oral tablet = 85 mg, By Mouth, Daily, 0 Refills, Maintenance, 04/13/21 9:59:00 EST, Tablet, Partial fill upon patient request if the prescription is for a schedule II opioid drug. Start Date: 04/13/21 Status: Orderedmirtazapine 15 mg oral tablet 1 tablet = 15 mg, By Mouth, Daily at bedtime, # 30 tablet, 0 Refills, Maintenance, 04/11/21 21:45:00EST, Tablet, Partial fill upon patient request if the prescription is for a schedule II opioid drug. Start Date: 04/11/21 Status: Orderednicotine 21 mg/24 hr transdermal film, extended release 1 patch, Topically, Daily, for 30 days, # 30 patch, 0 Refills, Acute 05/13/21 10:00:00 EST, 04/13/2110:00:00 EST, Patch, [facility], Partial fill upon patient request if the prescriptionis for a schedule II opioid drug., 1 patch Topica... Start Date: 04/13/21 Stop Date: 05/13/21 Status: Orderedomeprazole 20 mg oral enteric coated capsule 1 capsule = 20 mg, By Mouth, Daily, # 30 capsule, 0 Refills, Maintenance, 04/11/21 21:51:00 EST, EC Capsule, Partial fill upon patient request if the prescription is for a schedule II opioid drug. Start Date: 04/11/21 Status: Orderedvenlafaxine 37.5 mg oral capsule, extended [...] Exam Date Time Procedure Performing Provider Status 04/10/21 8:50 PM Chest Portable Tiffani Best; Joao (Hilaria beltran) Notes:(Chest Portable) Reason For Exam: Shortness of BreathRESULT: Chest Portable Chest Portable Reason: Shortness of Breath; Clinical Question(s): CHF COMPARISON: X-ray from 02/12/2021 FINDINGS: LINES AND TUBES: None. LUNGS AND PLEURA: Study limited by low lung volumes. Mild pulmonary edema. No pleural effusion. No pneumothorax. HEART, MEDIASTINUM AND MAURICIO: Mild Heart is normal in size. Normal upper mediastinal and hilar contour. BONES AND SOFT TISSUES: No acute abnormality. IMPRESSION: Mild pulmonary edema suggestive of CHF. WSN: [id number] Ordering Physician: Adan Roland Dictated By: Markus De León MD Dictated Date/Time: 04/10/21 8:58 pm Reviewed By: Markus De León MD Signed By: Markus De León MD Signed Date/Time: 04/10/21 8:58 pm Transcribed By: BECKA Transcribed Date/Time: 04/10/21 8:52 pm Vital Signs Most recent to oldest 1 2 3 [Reference Range]: Weight 67 kg (04/11/21 8:42 AM) Oxygen Saturation [94-100 97 % 91 % 93 % %] (04/13/21 6:50 AM) *L* *L* (04/13/21 4:44 AM) (04/13/21 12: 02 AM) Pulse Rate [55-90 bpm] 102 bpm 84 bpm 79 bpm *H* (04/13/21 4:44 AM) (04/13/21 12: 02 AM) (04/13/21 6:50 AM) Blood Pressure 161/86 mm Hg 132/55 mm Hg 130/60 mm Hg [90-138/55-84 mm Hg] *H* (04/13/21 4:44 AM) ( 1 12:02 AM) (04/13/21 6:50 AM) Respiratory Rate [16-30 18 br/min 18 br/min 18 br/mi n br/min] (04/13/21 10:26 AM) (04/13/21 8:24 AM) (04/13/21 8:24 AM) Temperature [96.8-100.4 98.0 DegF 98.4 DegF 98.6 Deg F DegF] (04/13/21 6:50 AM) (04/13/21 12:02 AM) (04/12/21 8:28 PM) Liters per Minute 2 L/min 3 L/min 3 L/min (04/13/21 6:50 AM) (04/12/21 5:28 AM) (04/12/21 12:08 AM) Mode of Delivery (Oxygen) Nasal cannula Room air Room a ir (04/13/21 6:50 AM) (04/13/21 4:44 AM) (04/13/21 12:02 AM) Blood pressure sites Arm, right Arm, left Arm, right (04/13/21 6:50 AM) (04/13/21 4:44 AM) (04/13/21 12:02 AM) Temperature Route Oral Oral Oral (04/13/21 6:50 AM) (04/13/21 12:02 AM) (04/12/21 8:28 PM) Dry Weight 67 kg (04/11/21 8:42 AM) Social History Social History Type Response Smoking Status Current every day smoker entered on: 12/12/13 Sex
--- OUTSIDE RECORDS SUMMARY | 2022-02-24 14:43 | XMS_ITS | Continuity of Care Document ---
:1965 Author Organization [facility] Address [address] [place] [phone]- Care Team Providers Name Role Phone Jair Lemus MD Primary Care Physician Encounter [facility] Date(s): 06/01/21 - 06/03/[address] [address]- Encounter Diagnosis Syncope (Final) - 06/01/21 Neck pain (Final) - 06/01/21 Orthostatic syncope (Final) - 06/01/21 Dehydration (Final) - 06/01/21 Discharge Disposition: A-D/C Home Attending Physician: Marino Givens MD Admitting Physician: Loyd Boo MD Referring Physician: Not on Staff, Referring [...] 09/06/08 Recorde d 1Admin Note: vis given 12/08/201225640Qfadc Note: VIS 7-123Result Comment: Patient verbally consented to receive [id number] Note: vis give dated 02/18/095Admin Note: vis given dated 06/08/2011 Medications Advair Diskus 250 mcg-50 mcg inhalation powder 1, puffs, Inhalation, 2 times a day, # 180 each, Refills 3, Tot. Refills 3, Maintenance, 11/21/20 9:19:00 EDT, Powder, Route to Pharmacy Electronically, [id number], [facility]/pharmacy #[id number] Start Date: 11/21/20 Status: Orderedalbuterol CFC free 90 mcg/inh inhalation aerosol 1 puffs, Inhalation, 4 times a day, PRN for wheezing, # 25 Gm, 11 Refills, Maintenance, Aerosol, 1 puffs Inhalation 4 times a day,PRN:for wheezing Start Date: 02/20/13 Status: OrderedamLODIPine 5 mg oral tablet 5 mg, Tablet, By Mouth, 06/03/21 9:00:00 EST Start Date: 06/03/21 Stop Date: 06/03/21 Status: CompletedamLODIPine 5 mg oral tablet 1 tablet = [...] Date: 02/20/13 Stop Date: 06/20/13 Status: Orderedergocalciferol 62479 iu oral capsule 1 capsule = 50,000 International_Units, By Mouth, Every week, Please take one capsule evry week for 8 weeks. Then can have 1000 IU daily., # 8 capsule, 0 Refills, Maintenance Start Date: 09/27/12 Status: Orderedgabapentin 400 mg oral capsule 800 mg, Capsule, By Mouth, 06/03/21 9:00:00 EST Start Date: 06/03/21 Stop Date: 06/03/21 Status: Completedgabapentin 400 mg oral capsule 800 [...] Status: Orderedmethadone 10 mg oral tablet = 85 mg, By Mouth, Daily, 0 Refills, Maintenance, 04/13/21 9:59:00 EST, Tablet, Partial fill upon patient request if the prescription is for a schedule II opioid drug. Start Date: 04/13/21 Status: Orderedmethadone 10 mg oral tablet 85 mg, Tablet, By Mouth, YONI Thayer confirmed from [facility], 06/03/21 9:00:00EST Start Date: 06/03/21 Stop Date: 06/03/21 Status: Completedmirtazapine 15 mg oral tablet 1 tablet = 15 mg, By Mouth, Daily at bedtime, # 30 tablet, 0 Refills, Maintenance, 04/11/21 21:45:00EST, Tablet, Partial fill upon patient request if the prescription is for a schedule II opioid drug. Start Date: 04/11/21 Status: Orderedomeprazole 20 mg oral enteric coated [...] for Microbiology Reports Name Date Blood Culture 06/01/21 Blood Culture #2 06/01/21 Microbiology Reports TEST:Blood Culture, Second Order STATUS:Unauthenticated BODY SITE: SOURCE:Blood COLLECTED DATE/TIME:06/01/21 9:50 PMBlood Culture, Second Order SPECIMEN DESCRIPTION : BLOOD R HAND SPECIAL REQUESTS : NONE CULTURE : NO GROWTH AFTER 48 HOURS REPORT STATUS : PRELIMINARY REPORT TEST:Blood Culture STATUS:Unauthenticated BODY SITE: SOURCE:Blood COLLECTED DATE/TIME:06/01/21 9:38 PMBlood Culture SPECIMEN DESCRIPTION : BLOOD L ARM SPECIAL REQUESTS : NONE CULTURE : NO GROWTH AFTER 48 HOURS REPORT STATUS : PRELIMINARY REPORT Radiology Reports Exam Date Time Procedure Performing Provider Status 06/02/21 8:44 AM XR Hip w/Pelvis 2-3 View Left DionicioMarianne bernardo; Joao (Verified) Notes:(XR Hip w/Pelvis 2-3 View Left) Reason For Exam: Pain;PainRESULT: XR Hip w/Pelvis 2-3 View Left XR Hip w/Pelvis 2-3 View Left Reason: Pain; Fracture COMPARISON: CT abdomen and pelvis 06/01/2021. FINDINGS: There is no fracture or dislocation. Mild bilateral hip joint space narrowing. Normal sacroiliac joints. Normal soft tissues. IMPRESSION: No acute osseous process. Mild bilateral hip joint space narrowing. I have personally reviewed the images and I agree with this report. WSN: [id number] Ordering Physician: Sumeet Patrick Dictated By: Sumeet Rice MD Dictated Date/Time: 06/02/21 9:22 am Reviewed By: Marcos Lomax MD Signed By: Marcos Lomax MD Signed Date/Time: 06/02/21 9:27 am Transcribed By: BECKA Transcribed Date/Time: 06/02/21 9:19 am Vital Signs Most recent to oldest 1 2 3 [Reference Range]: Height 165 cm 165 cm 165 cm (06/03/21 7:55 AM) (06/03/21 3:50 AM) (06/02/21 11: 48 PM) Weight 62.8 kg 62.8 kg (06/01/21 10:30 PM) (06/01/21 10:24 PM) Oxygen Saturation [94-100 %] 94 % 96 % 94 % (06/03/21 7:55 AM) (06/03/21 3:50 AM) (06/02/21 11: 48 PM) Pulse Rate [55-90 bpm] 93 bpm 77 bpm 73 bpm *H* (06/03/21 3:50 AM) (06/02/21 11:48 PM) (06/03/21 7:55 AM) Body Mass Index [18.5-24.99] 23.07 (06/01/21 10:30 PM) Blood Pressure [90-138/55-84 147/96 mm Hg 147/96 mm Hg 139 /73 mm Hg mm Hg] *H* *H* *H* (06/03/21 9:00 AM) (06/03/21 7:55 AM) (06/03/21 3:5 0 AM) Respiratory Rate [16-30 16 br/min 16 br/min 18 br/mi n br/min] (06/03/21 9:00 AM) (06/03/21 9:00 AM) (06/03/21 7:5 5 AM) Temperature [96.8-100.4 98.1 DegF 98.0 DegF 97.8 Deg F DegF] (06/03/21 7:55 AM) (06/03/21 3:50 AM) (06/02/21 11: 48 PM) Liters per Minute 2 L/min 2 L/min 2 L/min (06/03/21 7:55 AM) (06/03/21 3:00 AM) (06/02/21 11: 00 PM) Mode of Delivery (Oxygen) Nasal cannula Nasal cannula Nasal cannula (06/03/21 7:55 AM) (06/03/21 3:50 AM) (06/02/21 11: 48 PM) Blood pressure sites Arm, left Arm, left Arm, right (06/03/21 7:55 AM) (06/03/21 3:50 AM) (06/02/21 11: 48 PM) Temperature Route Oral Oral Oral (06/03/21 7:55 AM) (06/03/21 3:50 AM) (06/02/21 11: 48 PM) Dry Weight 62.8 kg (06/01/21 10:30 PM) Weight Obtained Via Bed scale Bed scale (06/01/21 10:30 PM) (06/01/21 10:24 PM) Dry Weight Obtained Via Bed scale (06/01/21 10:30 PM) Social History Social History Type Response Smoking Status Former smoker, quit more charo n 30 days ago entered on: 06/02/21 Sex
--- OUTSIDE RECORDS SUMMARY | 2022-02-24 14:43 | XMS_ITS | Continuity of Care Document ---
:1965 Author Organization [facility] Address [address] [place] [phone]- Care Team Providers Name Role Phone Jair Lemus MD Primary Care Physician [place] [facility] [place] - 03/19/[address] [address]- Discharge Disposition: A-Error Chart/Home (ED Only) Attending Physician: Not on Staff, Attending MD Admitting Physician: Not on Staff, Admitting MD Referring Physician: Not on Staff, Referring [...] 09/06/08 Recorde d 1Admin Note: vis given 12/08/201254430Cgrfb Note: VIS 7-123Result Comment: Patient verbally consented to receive [id number] Note: vis give dated 02/18/095Admin Note: vis given dated 06/08/2011 Medications Advair Diskus 250 mcg-50 mcg inhalation powder 1, puffs, Inhalation, 2 times a day, # 180 each, Refills 3, Tot. Refills 3, Maintenance, 11/21/20 9:19:00 EDT, Powder, Route to Pharmacy Electronically, [id number], [facility]/pharmacy #[id number] Start Date: 11/21/20 Status: Orderedalbuterol [...] opioid drug. Start Date: 02/12/21 Status: Orderedergocalciferol 99710 iu oral capsule 1 capsule = 50,000 [...] 4:41:20 EDT Start Date: 09/01/18 Status: OrderedLORazepam 1 mg oral tablet 1 tablet = [...] II opioid drug. Start Date: 12/08/20 Status: Orderedmirtazapine 15 mg oral tablet 0.5 tablet = 7.5 mg, By Mouth, Daily at bedtime, # 15 tablet, 0 Refills, Maintenance, 11/21/20 9:21:00 EDT, Tablet, [facility]/pharmacy #[id number], Partial fill upon patient request if the [...] Active Sciatica(Confirmed) Active Tobacco dependence syndrome(Confirmed) Active Vital Signs Most recent to oldest [Reference Range]: 1 2 Oxygen Saturation [94-100 %] 99 % 99 % (03/19/21 8:04 PM) (03/19/21 7:55 PM) Pulse Rate [55-90 bpm] 116 bpm 105 bpm *H* *H* (03/19/21 8:04 PM) (03/19/21 7:55 PM) Blood Pressure [90-138/55-84 mm Hg] 148/89 mm Hg *H* (03/19/21 8:04 PM) Respiratory Rate [16-30 br/min] 14 br/min *L* (03/19/21 8:04 PM) Temperature [96.8-100.4 DegF] 98 DegF (03/19/21 8:04 PM) Mode of Delivery (Oxygen) Room air (03/19/21 8:04 PM) Blood pressure sites Arm, left (03/19/21 8:04 PM) Temperature Route Oral (03/19/21 8:04 PM) Social History Social History Type Response Smoking Status Current every day smoker entered on: 12/12/13 Sex
--- OUTSIDE RECORDS SUMMARY | 2022-02-24 14:43 | XMS_ITS | Continuity of Care Document ---
:1965 Author Organization [facility] Address [address] [place] [phone]- Care Team Providers Name Role Phone Jair Lemus MD Primary Care Physician Encounter [facility] Date(s): 12/04/20 - 12/08/[address] [address] Encounter Diagnosis COPD exacerbation (Final) - 12/04/20 Discharge Disposition: A-D/C Home Attending Physician: Ole Larson MD Admitting Physician: Suzie Hdz MD Referring Physician: Not on Staff, Referring MD Allergies, Adverse Reactions, Alerts Substance Reaction Severity Status Imitrex Active Vicodin Active Immunizations Given and Recorded Vaccine Date Status Refusal Reason SARS-CoV-2 (COVID-19) mRNA BNT-162b2 vac1 11/20/20 Given SARS-CoV-2 (COVID-19) mRNA BNT-162b2 vac 09/12/20 Recorde d pneumococcal 23-valent vaccine 10/12/18 Recorded pneumococcal 23-valent vaccine2 01/17/13 Given tetanus/diphtheria/pertussis, acel(Tdap) 10/12/18 Recorde d tetanus/diphtheria/pertussis, acel(Tdap) 03/08/16 Recorde d tetanus/diphtheria/pertussis, acel(Tdap)3 09/27/12 Given tetanus/diphtheria/pertussis, acel(Tdap) 09/06/08 Recorde d influenza virus vaccine, inactivated 03/08/16 Recorded influenza virus vaccine, inactivated4 02/20/13 Given influenza virus vaccine, inactivated5 03/07/12 Given influenza virus vaccine, inactivated 01/21/11 Recorded influenza virus vaccine, inactivated 02/13/10 Recorded influenza virus vaccine, inactivated 02/12/09 Recorded influenza virus vaccine, inactivated 02/19/08 Recorded influenza virus vaccine, inactivated 03/30/07 Recorded 1Result Comment: Patient verbally consented to receive [id number] Note: vis give dated 02/18/093Admin Note: vis given dated 06/08/201134799Kwovc Note: vis given 12/08/201289880Nvxio Note: VIS 7-12 Medications Advair Diskus 250 mcg-50 mcg inhalation powder 1, puffs, Inhalation, 2 times a day, # 180 each, Refills 3, Tot. Refills 3, Maintenance, 11/21/20 9:19:00 EDT, Powder, Route to Pharmacy Electronically, [id number], [facility]/pharmacy #[id number] Start Date: 11/21/20 Status: Orderedalbuterol 0.083% [...] Date: 02/20/13 Stop Date: 06/20/13 Status: Orderedergocalciferol 22412 iu oral capsule 1 capsule = 50,000 International_Units, By Mouth, Every week, Please take one capsule evry week for 8 weeks. Then can have 1000 IU daily., # 8 capsule, 0 Refills, Maintenance Start Date: 09/27/12 Status: Orderedgabapentin 400 mg oral capsule 800 mg, Capsule, By Mouth, 12/08/20 15:00:00 EDT Start Date: 12/08/20 Stop Date: 12/08/20 Status: Completedgabapentin 400 mg oral capsule 800 [...] 0 Refills, Maintenance, 11/21/20 9:21:00 EDT, Tablet, [facility]/pharmacy #[id number], Partial fill upon patient request if the [...] tablet, 0 Refills, Maintenance, 219:21:00 EDT, Tablet, [facility]/pharmacy #[id number], Partial fill upon patient request if the prescription is for a schedule II opioid drug. Start Date: 11/21/20 Stop Date: 12/21/20 Status: OrderedpredniSONE 10 mg oral tablet See Instructions, Take 4 tablets by mouth for two days starting 12/09, followed by three tablets for two days, then 2 tablets for two days, and 1 tablet for two days (end 12/16) Take pills with food, # 20tablet, 0 Refills, Acute 12/16/20 21:00:00 EDT,... Start Date: 12/08/20 Stop Date: 12/16/20 Status: OrderedTylenol 325 mg oral tablet 650 mg, Tablet, By Mouth, 12/08/20 10:00:00 EDT Start Date: 12/08/20 Stop Date: 12/08/20 Status: Completed Problem List Condition Effective Dates Status Health Status Informant Anxiety(Confirmed) Active Asthma(Confirmed) Active Chronic obstructive pulmonary disease Active (COPD)(Confirmed) Depression(Confirmed) Active Heart murmur(Confirmed) Active Hernia, ventral(Confirmed) Active History of kidney stones(Confirmed) Active Lymphedema of leg(Confirmed) Active Hot Flashes(Confirmed) Active Sciatica(Confirmed) Active Tobacco dependence syndrome(Confirmed) Active Results Orders for Microbiology Reports Name Date Sputum Culture w/ Gram Smear 12/04/20 Microbiology Reports TEST:Sputum Culture STATUS:Auth (Verified) BODY SITE: SOURCE:EXPECT COLLECTED DATE/TIME:12/04/20 6:45 PMSputum Culture SPECIMEN DESCRIPTION : EXPECTORATED SPUTUM SPECIAL REQUESTS : NONE GRAM STAIN : 2+ POLYMORPHONUCLEAR LEUKOCYTES 1+ SQ.EPITHELIAL CELLS 1+ TISSUE CELLS 3+ GRAM POSITIVE COCCI CULTURE : 2+ STREPTOCOCCI, GROUP C BETA HEMOLYTIC. SUSCEPTIBILITY TESTING NOT ROUTINELY PERFORMED ON THIS ISOLATE. 2+ NORMAL PRANAY REPORT STATUS : FINAL 12/07/2020adiology Reports Exam Date Time Procedure Performing Provider Status 12/04/20 10:12 AM Chest 2 Views Frontal and Lat Vandana Grady; [facility] (Verified) Notes:(Chest 2 Views Frontal and Lat) Reason For Exam: Chest Pain;Other:RESULT: Chest 2 Views Frontal and Lat Chest 2 Views Frontal and Lat Hx of Present Illness: chest pain; Reason: Other:; Chest Pain; Clinical Question(s): CHF COMPARISON: Multiple prior examinations, most recent 11/18/2020. FINDINGS: LINES AND TUBES: None. LUNGS AND PLEURA: Increasing diffuse interstitial opacities with suggestion of developing peripheral interlobular septal lines, consistent with developing pulmonary edema. Developing left basilar ill-defined airspace opacity. Likely small bilateral pleural effusions. No pneumothorax. HEART, MEDIASTINUM AND MAURICIO: Heart is at the upper limits of normal for size. Normal upper mediastinal and hilar contour. BONES AND SOFT TISSUES: No acute abnormality. IMPRESSION: Findings consistent with developing pulmonary edema. Developing left basilar airspace opacity, likely atelectasis in the setting of a developing pulmonary edema and pleural effusions. However, a superimposed acute infectious process is not completely excluded. A [place] message has been communicated via the [employer] system on 12/04/2020 10:33 AM, Message ID [id number]. WSN: [id number] Ordering Physician: Gus Hernandez Dictated By: Sekou Rust MD Dictated Date/Time: 12/04/20 10:33 a Reviewed By: Sekou Rust MD Signed By: Sekou Rust MD Signed Date/Time: 12/04/20 10:33 am Transcribed By: BECKA Transcribed Date/Time: 12/04/20 10:28 am Vital Signs Most recent to oldest 1 2 3 [Reference Range]: Height 155 cm 155 cm 155 cm (12/08/20 12:26 PM) (12/08/20 12:06 PM) (12/08/20 9 :52 AM) Weight 80.5 kg 77 kg 77 kg (12/08/20 9:52 AM) (12/05/20 11:46 AM) (12/05/20 7: 54 AM) Oxygen Saturation [94-100 97 % 95 % 96 % %] (12/08/20 12:26 PM) (12/08/20 12:06 PM) (12/08/20 8 :54 AM) Pulse Rate [55-90 bpm] 81 bpm 79 bpm 81 bpm (12/08/20 12:26 PM) (12/08/20 12:06 PM) (12/08/20 8 :54 AM) Body Mass Index 33.51 32.05 32.05 [18.5-24.99] *>HHI* *>HHI* *>HHI* (12/08/20 9:52 AM) (12/05/20 11:46 AM) (12/05/20 7: 54 AM) Blood Pressure 130/56 mm Hg 197/62 mm Hg 132/56 mm Hg [90-138/55-84 mm Hg] (12/08/20 12:06 PM) *H* (12/08/20 4:45 AM) (12/08/20 8:54 AM) Respiratory Rate [16-30 18 br/min 16 br/min 16 br/mi n br/min] (12/08/20 2:22 PM) (12/08/20 12:06 PM) (12/08/20 11 :02 AM) Temperature [96.8-100.4 98.2 DegF 98.0 DegF 97.8 Deg F DegF] (12/08/20 12:06 PM) (12/08/20 8:54 AM) (12/08/20 4: 45 AM) Liters per Minute 2 L/min 2 L/min 2 L/min (12/08/20 12:26 PM) (12/08/20 12:06 PM) (12/08/20 8 :54 AM) Mode of Delivery (Oxygen) Nasal cannula Nasal cannula Nasal cannula (12/08/20 12:26 PM) (12/08/20 12:06 PM) (12/08/20 8 :54 AM) Blood pressure sites Arm, left Arm, right Arm, right (12/08/20 12:06 PM) (12/08/20 8:54 AM) (12/08/20 4: 45 AM) Temperature Route Oral Oral Oral (12/08/20 12:06 PM) (12/08/20 8:54 AM) (12/08/20 4: 45 AM) Dry Weight 77 kg 77 kg 77 kg (12/05/20 11:46 AM) (12/05/20 7:54 AM) (7/22/21 9: 56 AM) Weight Obtained Via Standing scale Patient/family stated (12/08/20 9:52 AM) (12/04/20 9:56 AM) Dry Weight Obtained Via Patient/family stated (12/04/20 9:56 AM) Social History Social History Type Response Smoking Status Current every day smoker entered on: 12/12/13 Sex
--- OUTSIDE RECORDS SUMMARY | 2022-02-24 14:43 | XMS_ITS | Continuity of Care Document ---
:1965 Author Organization [facility] Address [address] [place] [address]- Care Team Providers Name Role Phone Not on Staff, PCP Primary Care Physician Unavailable Encounter [place] Date(s): 11/18/20 - 11/21/[address] [address] Discharge Disposition: A-D/C Home Attending Physician: Kaylyn Tafoya MD Admitting Physician: Mil Negron MD Referring Physician: Not on Staff, Referring [...] 1Result Comment: Patient verbally consented to receive [id number] Note: vis give dated 02/18/093Admin Note: vis given dated 06/08/201151480Zgodj Note: vis given 12/08/201287401Wyrql Note: VIS 7-12 Medications 2L O2 2L O2, See Instructions, # 1 application, Refills 0, Tot. Refills 0, Maintenance, Oxygen to be used throughout the night and with acitivity, and prn as needed, 06/27/13 8:32:42, Diagnosis: COPD Start Date: 06/27/13 Status: OrderedAdvair Diskus 250 mcg-50 mcg inhalation powder 1, puffs, Inhalation, 2 times a day, # 180 each, Refills 3, Tot. Refills 3, Maintenance, 11/21/20 9:19:00 EDT, Powder, Route to Pharmacy Electronically, [id number], [facility]/pharmacy #[id number] Start Date: 11/21/20 Status: [...] II opioid drug. Start Date: 11/18/20 Status: OrderedAtivan 1 mg oral tablet 1 tablet = 1 mg, By Mouth, 3 times a day, PRN Anxiety, for 5 days, # 10 tablet, 0 Refills, Acute 11/26/20 9:20:00 EDT, 11/21/20 9:20:00 EDT, Tablet, [facility]/pharmacy #[id number], Partial fill upon patient request if the prescription is for a schedule II opioid... Start Date: 11/21/20 Stop Date: 11/26/20 Status: Orderedazithromycin 250 mg oral tablet = 250 mg, By Mouth, Daily, for 2 days, # 2 tablet, 0 Refills, Acute 11/23/20 9:20:00 EDT, 11/21/20 9:20:00 EDT, Tablet, [facility]/pharmacy #[id number], Partial fill upon patient request if the prescription is for a schedule II opioid drug. Start Date: 11/21/20 Stop Date: 11/23/20 Status: OrderedBilateral LE Knee High Flat Knit CCII 30-40 mmHg Compression Stockings Bilateral LE Knee High Flat Knit CCII 30-40 mmHg Compression Stockings, See Instructions, # 2 pair, Refills 2, Tot. Refills 2, Maintenance, Wear Daily All Day Dx-Lymphedema, 10/05/12 12:26:27 Start Date: 10/05/12 Status: OrderedcloNIDine 0.1 mg oral tablet 0.1 mg, 1, tablet, By Mouth, Every 8 hours, PRN, # 10 tablet, Refills 0, Tot. Refills 0, Maintenance, Anxiety, 11/21/20 9:20:00 EDT, Route to Pharmacy Electronically, [facility]/pharmacy #[id number], Partial fill upon patient request if the prescription is for a s... Start Date: 11/21/20 Status: OrderedCompression- Lower Extremity (Thigh-High) See Instructions, # 2 each, Maintenance, wear daily, 07/12/12 9:56:51 Start Date: 07/12/12 Status: OrderedDuoNeb 3 mg-0.5 mg/3 ml inhalation solution 3 mL, Inhalation, 2 times a day, # 180 mL, 3 Refills, Maintenance, Solution, 3 mL Inhalation 2 timesa day,x30 days Start Date: 02/20/13 Stop Date: 06/20/13 Status: Orderedergocalciferol 16751 iu oral capsule 1 capsule = 50,000 International_Units, By Mouth, Every week, Please take one capsule evry week for 8 weeks. Then can have 1000 IU daily., # 8 capsule, 0 Refills, Maintenance Start Date: 09/27/12 Status: Orderedgabapentin 400 mg oral capsule 800 mg, Capsule, By Mouth, 11/21/20 9:00:00 EDT Start Date: 11/21/20 Stop Date: 11/21/20 Status: Completedgabapentin 400 mg oral capsule 800 mg, 2, capsule, By Mouth, 3 times a day, # 15 capsule, Refills 0, Maintenance, 09/01/18 4:41:20 EDT Start Date: 09/01/18 Status: Orderedguaifenesin 50 mg/5 mL oral solution See Instructions, 20mL (200mg) every 4 hours as needed for cough or phlegm, # 300 mL, 0 Refills, Maintenance Start Date: 08/23/12 Status: Orderedibuprofen 600 mg oral tablet 1 tablet = 600 mg, By Mouth, 3 times a day, take with food or milk, for pain, # 90 tablet, 2 Refills, Maintenance, 10/29/13 8:12:57, 1 tablet By Mouth 3 times a day,Instr:take with food or milk, for pain Start Date: 10/29/13 Status: Orderedlosartan 25 mg oral tablet 25 mg, 1, tablet, By Mouth, Daily, # 30 tablet, Refills 0, Maintenance, 09/01/18 4:41:36 EDT Start Date: 09/01/18 Status: Orderedmethadone 10 mg/5 mL oral solution 20 mL = 40 mg, By Mouth, Daily, 0 Refills, Maintenance, 11/21/20 9:21:00 EDT, Solution, Partial fillupon patient request if the prescription is for a schedule II opioid drug. Start Date: 11/21/20 Status: OrderedMethadone Liquid 40 mg, Solution, By Mouth, 11/21/20 9:00:00 EDT, Stop date 11/21/20 9:00:00 EDT Start Date: 11/21/20 Stop Date: 11/21/20 Status: Completedmirtazapine 15 mg oral tablet 0.5 tablet = 7.5 mg, By Mouth, Daily at bedtime, # 15 tablet, 0 Refills, Maintenance, 11/21/20 9:21:00 EDT, Tablet, [facility]/pharmacy #[id number], Partial fill upon patient request if the prescription is for a schedule II opioid drug. Start Date: 11/21/20 Status: OrderedNebulizer Nebulizer, See Instructions, # 1 application, Refills 0, Tot. Refills 0, Maintenance, Use w/ treatments for COPD, 05/23/12 14:52:42 Start Date: 05/23/12 Status: Orderednitroglycerin 0.4 mg sublingual tablet = 0.4 mg, Sublingual, Every 5 minutes, PRN Chest Pain, # 30 tablet, 0 Refills, Maintenance, :21:00 EDT, Tablet, [facility]/pharmacy #[id number], Partial fill upon patient request if the prescription is for a schedule II opioid drug. Start Date: 11/21/20 Stop Date: 12/21/20 Status: OrderedNorvasc 5 mg oral tablet 5 mg, 1, tablet, By Mouth, Daily, # 30 tablet, Refills 0, Tot. Refills 0, Maintenance, 11/21/20 9:20:00 EDT, Route to Pharmacy Electronically, [facility]/pharmacy #[id number], Partial fill upon patient request if the prescription is for a schedule II opioid drug. Start Date: 11/21/20 Status: Orderedomeprazole 20 mg oral delayed release tablet 1 tablet = 20 mg, By Mouth, 2 times a day, # 60 tablet, 3 Refills, Maintenance, EC Tablet, 1 tablet By Mouth 2 times a day Start Date: 02/20/13 Status: OrderedpredniSONE 20 mg oral tablet 2 tablet = 40 mg, By Mouth, Daily, for 3 days, # 6 tablet, 0 Refills, Acute 11/24/20 9:21:00 EDT, 11/21/20 9:21:00 EDT, Tablet, [facility]/pharmacy #[id number], Partial fill upon patient request if the prescriptionis for a schedule II opioid drug. Start Date: 11/21/20 Stop Date: 11/24/20 Status: Orderedraised toilet seat raised toilet seat, See Instructions, # 1 each, Refills 0, Tot. Refills 0, Maintenance, Raised toilet seat to be used to enable ADLs d/t lymphedema, COPD, depression, 11/27/12 13:25:54 Start Date: 11/27/12 Status: OrderedRaised toilet seat with arms Raised toilet seat with arms, See Instructions, # 1 each, Refills 0, Tot. Refills 0, Maintenance, DX;Lymphedima of legs, at risk for falls., 11/28/12 11:53:47 Start Date: 11/28/12 Status: OrderedStraight cane Straight cane, See Instructions, # 1 units, Refills 0, Tot. Refills 0, Maintenance, Dx: Difficulty walking 781.2, 10/05/12 10:56:55 Start Date: 10/05/12 Status: OrderedSupplemental Oxygen Supplemental Oxygen, See Instructions, # 1 application, Refills 0, Tot. Refills 0, Maintenance, For COPD. 2L to be used w/ activity. Activity on room air: 86%, 05/23/12 14:51:52 Start Date: 05/23/12 Status: Orderedted stockings justice stockings, See Instructions, # 1 application, Refills 0, Tot. Refills 0, Maintenance, JUSTICE Stocking, 09/28/12 11:37:01 Start Date: 09/28/12 Status: OrderedTransfer Bench See Instructions, # 1 each, Maintenance, to enable adls d/t to COPD,lymphedema, depression, lifetimeneed, 01/08/13 11:14:28 Start Date: 01/08/13 Status: Ordered Problem List Condition Effective Dates Status Health Status Informant Anxiety(Confirmed) Active Asthma(Confirmed) Active Chronic obstructive pulmonary disease Active (COPD)(Confirmed) Depression(Confirmed) Active Heart murmur(Confirmed) Active Hernia, ventral(Confirmed) Active History of kidney stones(Confirmed) Active Lymphedema of leg(Confirmed) Active Hot Flashes(Confirmed) Active Sciatica(Confirmed) Active Tobacco dependence syndrome(Confirmed) Active Results Radiology Reports Exam Date Time Procedure Performing Provider Status 11/18/20 8:54 AM Chest Portable Fariha Grider; Joao (Hilaria beltran) Notes:(Chest Portable) Reason For Exam: Shortness of BreathRESULT: Chest Portable Examination: Portable chest performed on 11/18/2020. History: Shortness of breath. Findings: A frontal view of the chest is compared to a prior study dated 09/01/2018. The cardiac and mediastinal silhouettes are within normal limits. Minimal left basilar atelectasis is present. The lungs are otherwise clear. IMPRESSION: There is no acute cardiopulmonary disease. Minimal left basilar atelectasis. WSN: [id number] Ordering Physician: Alina Drake Dictated By: Daniella Medrano MD Dictated Date/Time: 11/18/20 8:57 am Reviewed By: Daniella Medrano MD Signed By: Daniella Medrano MD Signed Date/Time: 11/18/20 8:57 am Transcribed By: BECKA Transcribed Date/Time: 11/18/20 8:56 am Vital Signs Most recent to oldest [Reference 1 2 3 Range]: Weight 80.0 kg (11/18/20 5:45 PM) Oxygen Saturation [94-100 %] 97 % 96 % 95 % (11/21/20 7:52 AM) (11/21/20 3:00 AM) (11/20/20 11:35 PM) Pulse Rate [55-90 bpm] 72 bpm 66 bpm 70 bpm (11/21/20 7:52 AM) (11/21/20 3:00 AM) (11/20/20 11:35 PM) Blood Pressure [90-138/55-84 mm 154/73 mm Hg 134/65 mm Hg 137/65 mm Hg Hg] *H* (11/21/20 3:00 AM) (11/20/20 11:35 P M) (11/21/20 7:52 AM) Respiratory Rate [16-30 br/min] 20 br/min 20 br/min 19 br/min (11/21/20 10:00 AM) (11/21/20 9:03 AM) (11/21/20 9:00 AM) Temperature [96.8-100.4 DegF] 98.2 DegF 98.9 DegF 98 DegF (11/21/20 7:52 AM) (11/21/20 3:00 AM) (11/20/20 11:35 PM) Liters per Minute 2 L/min 2 L/min 2 L/min (11/21/20 7:52 AM) (11/21/20 3:00 AM) (11/20/20 11:35 PM) Mode of Delivery (Oxygen) Nasal cannula Nasal cannula Nasal cannula (11/21/20 7:52 AM) (11/21/20 3:00 AM) (11/20/20 11:35 PM) Blood pressure sites Arm, right Arm, right Arm, right (11/21/20 7:52 AM) (11/21/20 3:00 AM) (11/20/20 11:35 PM) Temperature Route Oral Oral Oral (11/21/20 7:52 AM) (11/21/20 3:00 AM) (11/20/20 11:35 PM) Weight Obtained Via Bed scale (11/18/20 5:45 PM) Social History Social History Type Response Smoking Status Current every day smoker entered on: 12/12/13 Sex
--- OUTSIDE RECORDS SUMMARY | 2022-02-24 14:43 | XMS_ITS | Continuity of Care Document ---
:1965 Author Organization [facility] Address [address] [place] [id number]- Care Team Providers Name Role Phone Anitha Sigala MD Primary Care Physician Encounter [facility] Date(s): 09/09/21 - 10/09/[address] [address] Attending Physician: Not on Staff, Attending MD [...] 09/06/08 Recorde d 1Admin Note: vis given 12/08/201280882Jlise Note: VIS 7-123Result Comment: Patient verbally consented to receive [id number] Note: vis give dated 02/18/095Admin Note: vis given dated 06/08/2011 Medications Advair Diskus 250 mcg-50 mcg inhalation powder 1, puffs, Inhalation, 2 times a day, # 180 each, Refills 3, Tot. Refills 3, Maintenance, 11/21/20 9:19:00 EDT, Powder, Route to Pharmacy Electronically, [id number], [facility]/pharmacy #[id number] Start Date: 11/21/20 Status: Orderedalbuterol [...] Date: 02/20/13 Stop Date: 06/20/13 Status: Orderedergocalciferol 05990 iu oral capsule 1 capsule = 50,000 [...] 09/10/21 7:38:00 EDT, Route to Pharmacy Electronically, [facility], Partial fill upon patient [...] 10/11/21 7:40:00 EDT, 09/10/21 7:39:00 EDT, Patch, [facility], Partial fill upon patient [...] 09/10/21 7:39:00 EDT, Route to Pharmacy Electronically, [facility], Partial fill upon patient request if the prescription is for a schedule II opioi... Start Date: 09/10/21 Status: Orderedthiamine 100 mg oral tablet 100 mg, 1, tablet, By Mouth, Daily, # 90 tablet, Refills 0, Tot. Refills 0, Maintenance, 09/10/21 7:39:00 EDT, Route to Pharmacy Electronically, [facility], Partial fill upon patient [...] Active Sciatica(Confirmed) Active Tobacco dependence syndrome(Confirmed) Active Social History Social History Type Response Smoking Status Former smoker, quit more charo n 30 days ago entered on: 06/02/21 Sex
--- OUTSIDE RECORDS SUMMARY | 2022-02-24 14:43 | XMS_ITS | Continuity of Care Document ---
:1965 Author Organization [facility] Address [address] [place] [id number]- Care Team Providers Name Role Phone Anitha Sigala MD Primary Care Physician Encounter [facility] Date(s): 01/22/22 - 01/23/[address] [address]- Discharge Disposition: A-D/C Walkout Attending Physician: Not on Staff, Attending MD [...] 09/06/08 Recorde d 1Admin Note: vis given 12/08/201206573Kyfbz Note: VIS 7-123Result Comment: Patient verbally consented to receive [id number] Note: vis give dated 02/18/095Admin Note: vis given dated 06/08/2011 Medications Advair Diskus 250 mcg-50 mcg inhalation powder 1, puffs, Inhalation, 2 times a day, # 180 each, Refills 3, Tot. Refills 3, Maintenance, 11/21/20 9:19:00 EDT, Powder, Route to Pharmacy Electronically, [id number], [facility]/pharmacy #[id number] Start Date: 11/21/20 Status: Orderedalbuterol CFC [...] Date: 02/20/13 Stop Date: 06/20/13 Status: Orderedergocalciferol 34352 iu oral capsule 1 capsule = 50,000 [...] 09/10/21 7:38:00 EDT, Route to Pharmacy Electronically, [facility], Partial fill upon patient request [...] 09/10/21 7:39:00 EDT, Route to Pharmacy Electronically, [facility], Partial fill upon patient request if the prescription is for a schedule II opioi... Start Date: 09/10/21 Status: Orderedthiamine 100 mg oral tablet 100 mg, 1, tablet, By Mouth, Daily, # 90 tablet, Refills 0, Tot. Refills 0, Maintenance, 09/10/21 7:39:00 EDT, Route to Pharmacy Electronically, [facility], Partial fill upon patient [...] to oldest [Reference 1 2 3 Range]: Oxygen Saturation [94-100 %] 97 % 95 % (01/22/22 11:05 PM) (01/22/22 7:15 PM) Pulse Rate [55-90 bpm] 80 bpm 88 bpm (01/22/22 11:05 PM) (01/22/22 7:15 PM) Blood Pressure [90-138/55-84 mm 114/86 mm Hg 140/75 mm Hg Hg] (01/22/22 11:05 PM) *H* (01/22/22 7:15 PM) Respiratory Rate [16-30 br/min] 16 br/min (01/22/22 7:15 PM) Temperature [96.8-100.4 DegF] 98.6 DegF (01/22/22 7:15 PM) Liters per Minute 2 L/min (01/22/22 7:30 PM) Mode of Delivery (Oxygen) Room air Nasal cannula Room a ir (01/22/22 11:05 PM) (01/22/22 7:30 PM) (01/22/22 7:15 PM) Blood pressure sites Arm, right Arm, right (01/22/22 11:05 PM) (01/22/22 7:15 PM) Temperature Route Oral (01/22/22 7:15 PM) Social History Social History Type Response Smoking Status Former smoker, quit more charo n 30 days ago entered on: 06/02/21 Sex Care Team PersonnelName: Anitha Sigala MD Address: [address] [place] [address]
--- OUTSIDE RECORDS SUMMARY | 2022-02-24 14:43 | XMS_ITS | Continuity of Care Document ---
:1965 Author Organization [facility] Address [address] [place] [id number]- Care Team Providers Name Role Phone Anitha Sigala MD Primary Care Physician Encounter [facility] Date(s): 01/25/22 - 01/25/[address] [address]- Discharge Disposition: A-D/C Walkout Attending Physician: Not [...] 09/06/08 Recorde d 1Admin Note: vis given 12/08/201209147Carpn Note: VIS 7-123Result Comment: Patient verbally consented to receive [id number] Note: vis give dated 02/18/095Admin Note: vis given dated 06/08/2011 Medications Advair Diskus 250 mcg-50 mcg inhalation powder 1, puffs, Inhalation, 2 times a day, # 180 each, Refills 3, Tot. Refills 3, Maintenance, 11/21/20 9:19:00 EDT, Powder, Route to Pharmacy Electronically, [id number], [facility]/pharmacy #[id number] Start Date: 11/21/20 Status: Orderedalbuterol CFC [...] Date: 02/20/13 Stop Date: 06/20/13 Status: Orderedergocalciferol 84396 iu oral capsule 1 capsule = 50,000 [...] 09/10/21 7:38:00 EDT, Route to Pharmacy Electronically, [facility], Partial fill upon patient request if [...] 09/10/21 7:39:00 EDT, Route to Pharmacy Electronically, [facility], Partial fill upon patient request if the prescription is for a schedule II opioi... Start Date: 09/10/21 Status: Orderedthiamine 100 mg oral tablet 100 mg, 1, tablet, By Mouth, Daily, # 90 tablet, Refills 0, Tot. Refills 0, Maintenance, 09/10/21 7:39:00 EDT, Route to Pharmacy Electronically, [facility], Partial fill upon patient request if [...] Exam Date Time Procedure Performing Provider Status 01/25/22 3:28 PM Chest 2 Views Frontal and Lat Dorothy Morton; Joao (Verified) Notes:(Chest 2 Views Frontal and Lat) Reason For Exam: Chest Pain;Other:RESULT: Chest 2 Views Frontal and Lat Chest 2 Views Frontal and Lat Hx of Present Illness: pt states abdominal pain with nausea and vomiting for five days pt denies anyfever or chills. no CP pt states SOB on 02 at baseline for COPD pt unable to toleratre any thing po;Reason: Other:; Chest Pain; Clinical Question(s): Other: COMPARISON: 09/04/2021 FINDINGS: No acute cardiopulmonary process IMPRESSION: No acute cardiopulmonary process WSN: [id number] Ordering Physician: Bryan Cano Dictated By: Chi Callaway MD Dictated Date/Time: 01/25/22 3:33 pm Reviewed By: Chi Callaway MD Signed By: Chi Callaway MD Signed Date/Time: 01/25/22 3:33 pm Transcribed By: BECKA Transcribed Date/Time: 01/25/22 3:31 pm Vital Signs Most recent to oldest 1 2 3 [Reference Range]: Oxygen Saturation [94-100 %] 97 % 93 % 97 % (01/25/22 7:59 PM) *L* (01/25/22 2:15 PM) (01/25/22 5:04 PM) Pulse Rate [55-90 bpm] 93 bpm 108 bpm 109 bpm *H* *H* *H* (01/25/22 7:59 PM) (01/25/22 5:04 PM) (01/25/22 1:3 6 PM) Blood Pressure [90-138/55-84 mm 147/91 mm Hg 155/96 mm Hg 159/84 mm Hg Hg] *H* *H* *H* (01/25/22 7:59 PM) (01/25/22 5:04 PM) (01/25/22 1:3 6 PM) Respiratory Rate [16-30 br/min] 19 br/min 20 br/min (01/25/22 5:04 PM) (01/25/22 1:36 PM) Temperature [96.8-100.4 DegF] 98.3 DegF 98.5 DegF 98 .3 DegF (01/25/22 7:59 PM) (01/25/22 5:04 PM) (01/25/22 1:3 6 PM) Liters per Minute 2 L/min 2 L/min 2 L/min (01/25/22 7:59 PM) (01/25/22 5:04 PM) (01/25/22 2:1 5 PM) Mode of Delivery (Oxygen) Nasal cannula Room air Nasal cannula (01/25/22 7:59 PM) (01/25/22 5:04 PM) (01/25/22 2:1 5 PM) Blood pressure sites Arm, right Arm, left Arm, left (01/25/22 7:59 PM) (01/25/22 5:04 PM) (01/25/22 1:3 6 PM) Temperature Route Oral Oral Oral (01/25/22 7:59 PM) (01/25/22 5:04 PM) (01/25/22 1:3 6 PM) Social History Social History Type Response Smoking Status Former smoker, quit more charo n 30 days ago entered on: 06/02/21 Sex Note BHSPowerscribe , CIS S: TRANSCRIBE Chi Callaway MD: VERIFY Event Display: Result: Authored Date: Chest 2 Views Frontal and Lat Hx of Present Illness: pt states abdominal pain with nausea and vomiting for five days pt denies anyfever or chills. no CP pt states SOB on 02 at baseline for COPD pt unable to toleratre any thing po;Reason: Other:; Chest Pain; Clinical Question(s): Other: COMPARISON: 09/04/2021 FINDINGS: No acute cardiopulmonary process IMPRESSION: No acute cardiopulmonary process WSN: [id number] Ordering Physician: Bryan Cano Dictated By: Chi Callaway MD Dictated Date/Time: 01/25/22 3:33 pm Reviewed By: Chi Callaway MD Signed By: Chi Callaway MD Signed Date/Time: 01/25/22 3:33 pm Transcribed By: BECKA Transcribed Date/Time: 01/25/22 3:31 pm Care Team PersonnelName: Anitha Sigala MD Address: [address] [place] [address]- [place]
== END 2022-02-11 11:07 | disposition home or self-care (01) | DRG 755 ==
LOC: HO.ED 02-02 01:08 → HO.PADLT16 02-03 07:27
PROVIDERS: Physician Assistant; Registered Nurse; Admitting Provider Psychiatry & Neurology Psychiatry; Emergency Provider Internal Medicine; PCP Internal Medicine; Visit Provider Psychiatry & Neurology Psychiatry
DX: F40.01 Agoraphobia with panic disorder (principal); R45.851 Suicidal ideations; K74.60 Unspecified cirrhosis of liver; Z99.81 Dependence on supplemental oxygen; E11.9 Type 2 diabetes mellitus without complications; F43.10 Post-traumatic stress disorder, unspecified; J44.9 Chronic obstructive pulmonary disease, unspecified; F11.20 Opioid dependence, uncomplicated; I10 Essential (primary) hypertension; Z20.822 Contact with and (suspected) exposure to COVID-19; F17.210 Nicotine dependence, cigarettes, uncomplicated; K21.9 Gastro-esophageal reflux disease without esophagitis; I35.0 Nonrheumatic aortic (valve) stenosis; G44.209 Tension-type headache, unspecified, not intractable; R22.0 Localized swelling, mass and lump, head; R90.89 Other abnormal findings on diagnostic imaging of central nervous system; Z71.6 Tobacco abuse counseling; Z88.5 Allergy status to narcotic agent; Z88.6 Allergy status to analgesic agent; Z88.8 Allergy status to other drugs, medicaments and biological substances; Z79.51 Long term (current) use of inhaled steroids; Z79.82 Long term (current) use of aspirin; Z79.899 Other long term (current) drug therapy
CPT/HCPCS: 36415; 70450; 70490; 80053; 80061; 80307; 81001; 81003; 82077; 82248; 82607; 82746; 82947; 83036; 83690; 83735; 84439; 84443; 84484; 85025; 87635; 93005; 99285

== ENCOUNTER 2022-03-01 16:06 | Inpatient (IN) | payer OTHER, SELFPAY ==
--- NOTE | ~2022-03-01 | XR_ITS ---
EXAMINATION: XR CHEST CLINICAL INFORMATION: Chest pain COMPARISON: Chest x-ray 07/29/2021 TECHNIQUE: Frontal view of the chest was obtained. FINDINGS: Linear streaky left basilar subsegmental atelectasis versus scarring. No airspace consolidation. No appreciable pleural effusion or pneumothorax. Normal cardiomediastinal silhouette and pulmonary vascularity. No acute osseous injury. XR/XR chest 1V IMPRESSION: No acute pulmonary disease.
[2022-03-01 16:10] VITALS: BP 155/85; PULSE 96; O2SAT 99
[2022-03-01 16:16] VITALS: BP 166/88; PULSE 87; RESP 18; TEMP 36.6; O2SAT 96; BMI 26.4
--- NOTE | 2022-03-01 16:24 | ECG_ITS ---
Test Reason : CHEST PAIN Blood Pressure : / mmHG Vent. Rate : 074 BPM Atrial Rate : 074 BPM P-R Int : 154 ms QRS Dur : 134 ms QT Int : 424 ms P-R-T Axes : 025 083 022 degrees QTc Int : 470 ms Normal sinus rhythm Right bundle branch block Abnormal ECG When compared with ECG of 03-FEB-2022 16:22, Right bundle branch block has replaced Incomplete right bundle branch block Referred By: Elise Santa Electronically Signed By:JUDITH HEARD MD
--- NOTE | 2022-03-01 16:27 | ED_ITS ---
HPI - Chest Pain General Chief Complaint: Chest Pain Stated Complaint: chest pain Time Seen by Provider: 03/01/22 16:17 Source: patient and EMS Mode of arrival: EMS Limitations: no limitations History of Present Illness HPI narrative: Patient comes to the emergency room complaining of anxiety, depression, vague suicidal ideation, chest pain. Patient states it has been approximately 3 hours since she started having a panic attack/anxiety and chest pain. Patient denies using cocaine, heroin or any other drugs. Patient states that for the last 2 days she has been feeling herself. Denies any new medications or dose changes in her medications. Patient also states that she has been having racing thoughts and hallucinations, hearing voices telling her to hurt herself. Related Data Home Medications Medication Instructions Recorded Confirmed ergocalciferol (vitamin D2) 1,250 1,250 mcg PO TU 02/02/22 02/02/22 mcg (50,000 unit) capsule fluticasone 250 mcg-salmeterol 50 1 puff inhalation BID 02/02/22 02/02/22 mcg/dose blistr powdr for inhalation (Advair Diskus) methadone 10 mg/mL oral 130 mg PO DAILY 02/02/22 02/02/22 concentrate (Methadone Intensol) omeprazole 40 mg capsule,delayed 1 cap PO DAILY 02/02/22 02/02/22 release pulse oximeter 02/03/22 02/03/22 Previous Rx's Medication Instructions Recorded Oxygen Home Use #1 ea 11/26/20 nebulizers (Altera Nebulizer #1 ea 09/28/21 System) cane #1 ea 10/16/21 ipratropium 0.5 mg-albuterol 3 mg 3 ml inhalation Q4H PRN shortness 10/27/21 (2.5 mg base)/3 mL nebulization of breath or wheezing 30 days #360 soln mL amlodipine 5 mg tablet 5 mg PO DAILY #30 tabs 11/04/21 aspirin 81 mg tablet,delayed 81 mg PO DAILY #30 tabs 11/04/21 release nicotine 21 mg/24 hr daily 1 patch transdermal DAILY #28 ea 11/17/21 transdermal patch albuterol sulfate 90 mcg/actuation 2 puff PO Q4H PRN for wheezing 01/21/22 aerosol inhaler (ProAir HFA) #8.5 ea gabapentin 300 mg capsule 900 mg PO TID 30 days #270 caps 02/11/22 lorazepam 1 mg tablet 1 mg PO DAILY PRN Anxiety 7 days 02/11/22 #7 tabs mirtazapine 30 mg tablet 30 mg PO BEDTIME 30 days #30 tabs 02/11/22 prazosin 1 mg capsule 3 mg PO BEDTIME 30 days #90 caps 02/11/22 venlafaxine 37.5 mg 1 cap PO DAILY depressive disorder 02/11/22 capsule,extended release 24 hr 30 days #30 caps Allergies Allergy/AdvReac Type Severity Reaction Status Date / Time acetaminophen [Vicodin] Allergy Unknown Unknown Verified 09/24/21 15:13 hydrocodone [Vicodin] Allergy Unknown Unknown Verified 09/24/21 15:13 sumatriptan [From IMITREX] Allergy Unknown VOMITING,RA Verified 09/24/21 15:13 Review of Systems Review of Systems: Constitutional : No Weight loss, No Fever, No Chills, No Night Sweats, No Fatigue, No Malaise ENT/Mouth : No Hearing loss, No Ear Pain, No Nasal Congestion, No Sinus Pain, No Hoarseness, No sore throat, No Rhinorrhea, No Swallowing Difficulty Eyes: No Eye Pain, No Swelling, No Redness, No Foreign Body, No Discharge, No Vision Changes Cardiovascular : Complaining of chest pain/anxiety, No SOB, No Dyspnea on Exertion, No Orthopnea, No Edema, No Palpitations Respiratory : No Cough, No Sputum, No Wheezing, No Smoke Exposure, No Dyspnea Gastrointestinal : No Nausea, No Vomiting, No Diarrhea, No Constipation, No abdominal Pain, No Hematochezia, No Melena Genitourinary : no irregular bleeding, No Dysuria, No Urinary Frequency, No Hematuria, No Urinary Incontinence, No Urgency, No Flank Pain, No Urinary Flow Changes, No Hesitancy Musculoskeletal : No joint pain, No Myalgias, No Joint Swelling Skin : No Skin Lesions, No rash Neuro : No Weakness, No Numbness, No Paresthesias, No Loss of Consciousness, No Dizziness, No Headache Psych : Complaining of anxiety, depression, vague suicidal ideation, complaining of racing thoughts and hallucinations Heme/Lymph: No Bruising, No Bleeding,No Lymphadenopathy Endocrine : No Polyuria, No Polydipsia, No Temperature Intolerance PMFSH Past Medical History Medical History Anxiety COPD (chronic obstructive pulmonary disease) Cranial nerve dysfunction Depression Diabetes Hypertension Lightheaded Surgical History H/O wrist surgery Family History Family History Father No problems noted. Mother Diabetes Social History Social History Household Members: Children Household Members Other:: Son, Kirby Mcdermott Housing: House Do you presently have visiting nurse or other home services: Yes Alcohol intake: current Alcohol intake frequency: does not drink Patient Tobacco Use Status: Current everyday Tobacco user Tobacco use type: Cigarette Cigarettes Per Day: 5 Years Smoked: 30 e-Cigarette/Vaping Use: Never Used Second Hand Smoke Exposure: No Use of substances other than those prescribed or required for medical reasons: Yes Substance Use Type: Crack/Cocaine and Marijuana Last Used Substance: Days (ago) Advance Directives: No Advance Directives Information Provided: No Patient : No service: No Current occupational status: disabled Sexual orientation: Straight/Heterosexual Cognitive needs: No Hearing needs: No Vision needs: No Physical Exam Vital Signs: Vital Signs: Last Vital Signs Temp 97.9 F 03/01/22 16:16 Pulse 87 03/01/22 16:16 Resp 18 03/01/22 16:16 BP 166/88 H 03/01/22 16:16 Pulse Ox 96 03/01/22 16:16 O2 Del Method 03/01/22 16:16 BMI result Body Mass Index 26.4 Const: Other: Appearance: Alert. Oriented X3. No acute distress. Crying Eyes: Pupils equal, round and reactive to light. ENT: Pharynx normal. Neck: Normal inspection. Neck supple. No lymph nodes noted. No crepitus CVS: Normal heart rate and rhythm. Pulses normal. Normal S1 and S2 Respiratory: No respiratory distress. Breath sounds normal. No Wheezing. No rales Abdomen: Soft and nontender. No rigidity. No distention. Skin: Skin warm and dry. Normal skin color. Normal skin turgor. Extremities: No lower extremity edema. No Lacerations. No Rash Neuro: Oriented X 3. No motor deficit. No sensory deficit. Moving all extremities. No slurred speech. CN 2 through 12 grossly intact Psych: calm, cooperative, from ring Course Course Course Narrative: Patient is known to have panic attack as she did today, anxiety, of patient's labs pending. After the medical workup. [facility]. Patient's magnesium is slightly decreased at 1.4. Patient given 100 mg of p.o. magnesium oxide. Patient has labs scheduled for the morning to repeat magnesium. Patient is asymptomatic. Urine toxicology positive for marijuana and cocaine Labs have been reviewed. [facility] consult pending. Physician observation started at 18:20 [facility] - Chest Pain Lab Data Result diagrams: 03/01/22 16:44 03/01/22 16:44 Labs: Lab Results 03/01/22 03/01/22 03/01/22 Range/Units 16:44 16:44 16:44 WBC 7.7 (4.8-10.8) X10*3/uL RBC 4.51 (4.20-5.50) X10*6/uL Hgb 12.7 (12.0-16.0) g/dl Hct 40.5 (37.0-47.0) % MCV 89.8 (80.0-98.0) fL MCH 28.2 (27.0-33.0) pg MCHC 31.4 (31.0-35.0) g/dl RDW 17.7 H (11.0-16.0) % Plt Count 159 L (160-400) X10*3/uL MPV 10.0 (9.4-12.3) fL Immature Gran % (Auto) 0.4 (0.0-0.4) % Neut % (Auto) 80.0 H (45-73) % Lymph % (Auto) 14.0 L (20-40) % [place] % (Auto) 4.3 (2-11) % Eos % (Auto) 0.8 (0-4) % Baso % (Auto) 0.5 (0-2) % Lymph # (Auto) 1.1 L (1.2-4.9) X10*3/uL [place] # (Auto) 0.3 (0.1-1.2) X10*3/uL Eos # (Auto) 0.1 (0.0-0.4) X10*3/uL Baso # (Auto) 0.0 (0.0-0.2) X10*3/uL Abs Immat Gran (auto) 0.03 (0.00-0.03) X10*3/uL Absolute Neuts (auto) 6.2 (2.0-8.3) x10*3/uL Absolute Nucleated RBC 0.000 (0.0-0.012) X10*3/uL Nucleated RBC % (auto) 0.0 (0.0-0.2) /100WBC PT (10.0-13.1) SEC INR (0.9-1.1) Sodium 140 (135-145) mmol/L Potassium 3.8 (3.3-5.1) mmol/L Chloride 101 (96-108) mmol/L Carbon Dioxide 26 (22-29) mmol/L Anion Gap 17 (12-20) BUN 14 (9-16) mg/dL Creatinine 0.80 (0.5-1.4) mg/dL Estim Creat Clear Calc 67.1 Estimated GFR > 60 Random Glucose 90 (60-115) mg/dL Calcium 9.8 D (8.4-10.2) mg/dL Magnesium 1.4 L* (1.6-2.6) mg/dL Total Bilirubin 0.6 (0.0-1.0) mg/dL Direct Bilirubin 0.2 (0.0-0.5) mg/dL AST 14 (5-31) U/L ALT 9 (0-31) U/L Alkaline Phosphatase 80 D (39-117) U/L Troponin I High Sens < 3.5 (<3.5-17.0) ng/L Total Protein 7.9 D (6.5-8.0) g/dL Albumin 4.4 (3.5-5.0) g/dL Urine Color Urine Appearance Urine pH (5.0-9.0) Ur Specific [place] (1.005-1.025) Urine Protein (Neg-Trace) mg/dL Urine Glucose (UA) (Negative) mg/dL Urine Ketones (Negative) mg/dL Urine Blood (Negative) Urine Nitrite (Negative) Ur Leukocyte Esterase (Negative) Salicylates < 5.0 L (15-30) mg/dL Urine Opiates Screen (Not Detect) Urine Fentanyl Screen (Not Detect) Acetaminophen < 1 (<30) mcg/mL Ur Barbiturates Screen (Not Detect) Ur Phencyclidine Scrn (Not Detect) Ur Amphetamines Screen (Not Detect) U Benzodiazepines Scrn (Not Detect) Urine Cocaine Screen (Not Detect) U Marijuana (THC) Screen (Not Detect) Ethyl Alcohol mg/dL COVID-19 ([facility]) (Negative) COVID-19 Clin Com 03/01/22 03/01/22 03/01/22 Range/Units 16:44 16:44 16:44 WBC (4.8-10.8) X10*3/uL RBC (4.20-5.50) X10*6/uL Hgb (12.0-16.0) g/dl Hct (37.0-47.0) % MCV (80.0-98.0) fL MCH (27.0-33.0) pg MCHC (31.0-35.0) g/dl RDW (11.0-16.0) % Plt Count (160-400) X10*3/uL MPV (9.4-12.3) fL Immature Gran % (Auto) (0.0-0.4) % Neut % (Auto) (45-73) % Lymph % (Auto) (20-40) % [place] % (Auto) (2-11) % Eos % (Auto) (0-4) % Baso % (Auto) (0-2) % Lymph # (Auto) (1.2-4.9) X10*3/uL [place] # (Auto) (0.1-1.2) X10*3/uL Eos # (Auto) (0.0-0.4) X10*3/uL Baso # (Auto) (0.0-0.2) X10*3/uL Abs Immat Gran (auto) (0.00-0.03) X10*3/uL Absolute Neuts (auto) (2.0-8.3) x10*3/uL Absolute Nucleated RBC (0.0-0.012) X10*3/uL Nucleated RBC % (auto) (0.0-0.2) /100WBC PT 12.0 (10.0-13.1) SEC INR 1.0 (0.9-1.1) Sodium (135-145) mmol/L Potassium (3.3-5.1) mmol/L Chloride (96-108) mmol/L Carbon Dioxide (22-29) mmol/L Anion Gap (12-20) BUN (9-16) mg/dL Creatinine (0.5-1.4) mg/dL Estim Creat Clear Calc Estimated GFR Random Glucose (60-115) mg/dL Calcium (8.4-10.2) mg/dL Magnesium (1.6-2.6) mg/dL Total Bilirubin (0.0-1.0) mg/dL Direct Bilirubin (0.0-0.5) mg/dL AST (5-31) U/L ALT (0-31) U/L Alkaline Phosphatase (39-117) U/L Troponin I High Sens (<3.5-17.0) ng/L Total Protein (6.5-8.0) g/dL Albumin (3.5-5.0) g/dL Urine Color Urine Appearance Urine pH (5.0-9.0) Ur Specific [place] (1.005-1.025) Urine Protein (Neg-Trace) mg/dL Urine Glucose (UA) (Negative) mg/dL Urine Ketones (Negative) mg/dL Urine Blood (Negative) Urine Nitrite (Negative) Ur Leukocyte Esterase (Negative) Salicylates (15-30) mg/dL Urine Opiates Screen (Not Detect) Urine Fentanyl Screen (Not Detect) Acetaminophen (<30) mcg/mL Ur Barbiturates Screen (Not Detect) Ur Phencyclidine Scrn (Not Detect) Ur Amphetamines Screen (Not Detect) U Benzodiazepines Scrn (Not Detect) Urine Cocaine Screen (Not Detect) U Marijuana (THC) Screen (Not Detect) Ethyl Alcohol < 10 mg/dL COVID-19 ([facility]) Negative (Negative) COVID-19 Clin Com See Note 03/01/22 03/01/22 Range/Units 17:55 17:55 WBC (4.8-10.8) X10*3/uL RBC (4.20-5.50) X10*6/uL Hgb (12.0-16.0) g/dl Hct (37.0-47.0) % MCV (80.0-98.0) fL MCH (27.0-33.0) pg MCHC (31.0-35.0) g/dl RDW (11.0-16.0) % Plt Count (160-400) X10*3/uL MPV (9.4-12.3) fL Immature Gran % (Auto) (0.0-0.4) % Neut % (Auto) (45-73) % Lymph % (Auto) (20-40) % [place] % (Auto) (2-11) % Eos % (Auto) (0-4) % Baso % (Auto) (0-2) % Lymph # (Auto) (1.2-4.9) X10*3/uL [place] # (Auto) (0.1-1.2) X10*3/uL Eos # (Auto) (0.0-0.4) X10*3/uL Baso # (Auto) (0.0-0.2) X10*3/uL Abs Immat Gran (auto) (0.00-0.03) X10*3/uL Absolute Neuts (auto) (2.0-8.3) x10*3/uL Absolute Nucleated RBC (0.0-0.012) X10*3/uL Nucleated RBC % (auto) (0.0-0.2) /100WBC PT (10.0-13.1) SEC INR (0.9-1.1) Sodium (135-145) mmol/L Potassium (3.3-5.1) mmol/L Chloride (96-108) mmol/L Carbon Dioxide (22-29) mmol/L Anion Gap (12-20) BUN (9-16) mg/dL Creatinine (0.5-1.4) mg/dL Estim Creat Clear Calc Estimated GFR Random Glucose (60-115) mg/dL Calcium (8.4-10.2) mg/dL Magnesium (1.6-2.6) mg/dL Total Bilirubin (0.0-1.0) mg/dL Direct Bilirubin (0.0-0.5) mg/dL AST (5-31) U/L ALT (0-31) U/L Alkaline Phosphatase (39-117) U/L Troponin I High Sens (<3.5-17.0) ng/L Total Protein (6.5-8.0) g/dL Albumin (3.5-5.0) g/dL Urine Color Yellow Urine Appearance Clear Urine pH 5.5 (5.0-9.0) Ur Specific [place] 1.020 (1.005-1.025) Urine Protein Trace (Neg-Trace) mg/dL Urine Glucose (UA) Negative (Negative) mg/dL Urine Ketones 40 (Negative) mg/dL Urine Blood Negative (Negative) Urine Nitrite Negative (Negative) Ur Leukocyte Esterase Negative (Negative) Salicylates (15-30) mg/dL Urine Opiates Screen Not Detected (Not Detect) Urine Fentanyl Screen Not Detected (Not Detect) Acetaminophen (<30) mcg/mL Ur Barbiturates Screen Not Detected (Not Detect) Ur Phencyclidine Scrn Not Detected (Not Detect) Ur Amphetamines Screen Not Detected (Not Detect) U Benzodiazepines Scrn Not Detected (Not Detect) Urine Cocaine Screen POSITIVE H (Not Detect) U Marijuana (THC) Screen POSITIVE H (Not Detect) Ethyl Alcohol mg/dL COVID-19 ([facility]) (Negative) COVID-19 Clin Com Imaging Data Chest x-ray: Radiologist's impression: FINDINGS: Linear streaky left basilar subsegmental atelectasis versus scarring. No airspace consolidation. No appreciable pleural effusion or pneumothorax. Normal cardiomediastinal silhouette and pulmonary vascularity. No acute osseous injury. XR/XR chest 1V IMPRESSION: No acute pulmonary disease. Discharge Plan Discharge Clinical Impression: Anxiety and depression, Chest pain, Auditory hallucinations Patient Disposition: Still a Patient Prescriptions: No Action (DME) cane Device See Rx Instructions .Route Qty: 1 0RF Rx Instructions: As directed ipratropium-albuterol 0.5 mg-3 mg(2.5 mg base)/3 mL solution for nebulization 3 ml inhalation Q4H PRN (Reason: shortness of breath or wheezing) 30 Days Qty : 360 3RF amlodipine 5 mg tablet 5 mg PO DAILY Qty: 30 7RF aspirin 81 mg tablet,delayed release (DR/EC) 81 mg PO DAILY Qty: 30 7RF nicotine 21 mg/24 hr patch 24 hour 1 patch transdermal DAILY Qty: 28 8RF albuterol sulfate [ProAir HFA] 90 mcg/actuation HFA aerosol inhaler 2 puff PO Q4H PRN (Reason: for wheezing) Qty: 8.5 2RF omeprazole 40 mg capsule,delayed release(DR/EC) 1 cap PO DAILY methadone [Methadone Intensol] 10 mg/mL Concentrate 130 mg PO DAILY fluticasone propion-salmeterol [Advair Diskus] 250-50 mcg/dose blister with device 1 puff INHALATION BID ergocalciferol (vitamin D2) 1,250 mcg (50,000 unit) capsule 1,250 mcg PO TU (DME) pulse oximeter See Rx Instructions Rx Instructions: As directed prazosin 1 mg Capsule 3 mg PO BEDTIME 30 Days Qty: 90 0RF Protocol: Hold for SBP< HOLD for SBP < : 90 mirtazapine 30 mg Tablet 30 mg PO BEDTIME 30 Days Qty: 30 0RF gabapentin 300 mg Capsule 900 mg PO TID 30 Days Qty: 270 0RF venlafaxine 37.5 mg capsule,extended release 24hr 1 cap PO DAILY 30 Days Qty: 30 0RF lorazepam 1 mg Tablet 1 mg PO DAILY PRN (Reason: Anxiety) 7 Days Qty: 7 3RF (DME) Oxygen Home Use Kit See Rx Instructions .ROUTE .MEDSUPPLY Qty: 1 12RF Rx Instructions: 2L nasal cannula continuous (DME) Altera Nebulizer System Misc See Rx Instructions .Route Qty: 1 0RF Rx Instructions: As directed
[2022-03-01] MEDS: LORazepam 1 MG TABLET 2 MG PO (16:36)
[2022-03-01 16:39] VITALS: PULSE 80
--- NOTE | 2022-03-01 16:40 | PC.NURSE ---
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 Pt states pain down left arm with associated nausea x 2 weeks. Upon further assessment pt also admits to auditory hallucinations, racing thoughts and when asked about SI states i feel like if i go home i could be unsafe Admits to cocaine use occasionally, last use Tuesday. No ETOH. Recently d/'d from inpt psych 2 weeks prior per pt. calm/cooperative. NSR on tele
[2022-03-01 16:58] LABS: MANUAL DIFF FLAG NO
[2022-03-01 17:02] LABS: Basophils Percent Auto 0.5 % (0-2); Eosinophils Absolute Auto 0.1 X10*3/uL (0.0-0.4); Eosinophils Percent Auto 0.8 % (0-4); Hematocrit 40.5 % (37.0-47.0); Hemoglobin 12.7 g/dl (12.0-16.0); Imm Gran Abs Auto 0.03 X10*3/uL (0.00-0.03); Imm Gran Pct Auto 0.4 % (0.0-0.4); Lymphocytes Absolute Auto 1.1 X10*3/uL (1.2-4.9); Mean Corpuscular HGB Conc 31.4 g/dl (31.0-35.0); Mean Corpuscular Hemoglobin 28.2 pg (27.0-33.0); Mean Corpuscular Volume 89.8 fL (80.0-98.0); Monocytes Absolute Auto 0.3 X10*3/uL (0.1-1.2); Monocytes Percent Auto 4.3 % (2-11); Neutrophils Absolute Auto 6.2 x10*3/uL (2.0-8.3); Platelet Count 159 X10*3/uL (160-400); Red Blood Count 4.51 X10*6/uL (4.20-5.50); Red Cell Distribution Width 17.7 % (11.0-16.0); White Blood Count 7.7 X10*3/uL (4.8-10.8)
[2022-03-01 17:14] LABS: COVID-19 Test Negative (Negative)
[2022-03-01 17:15] LABS: Ethanol < 10 mg/dL
[2022-03-01 17:22] LABS: Acetaminophen LAB < 1 mcg/mL (<30); Alanine Aminotransferase 9 U/L (0-31); Albumin Level 4.4 g/dL (3.5-5.0); Alkaline Phosphatase 80 U/L (39-117); Anion Gap 17 (12-20); Aspartate Amino Transferase 14 U/L (5-31); Bilirubin Direct 0.2 mg/dL (0.0-0.5); Bilirubin Total 0.6 mg/dL (0.0-1.0); Blood Urea Nitrogen 14 mg/dL (9-16); Calcium 9.8 mg/dL (8.4-10.2); Carbon Dioxide 26 mmol/L (22-29); Chloride 101 mmol/L (96-108); Creatinine Clr Calc Pharmacy 67.1; Estimated Glomerular Filt Rate > 60; Glucose Random 90 mg/dL (60-115); Magnesium 1.4 mg/dL (1.6-2.6); Potassium 3.8 mmol/L (3.3-5.1); Salicylate < 5.0 mg/dL (15-30); Sodium 140 mmol/L (135-145); Total Protein 7.9 g/dL (6.5-8.0)
[2022-03-01 17:23] LABS: Troponin-I High Sensitivity < 3.5 ng/L (<3.5-17.0)
[2022-03-01] MEDS: Magnesium Oxide 400 MG TABLET 800 MG PO (17:48)
[2022-03-01 18:08] LABS: Appearance Urine Clear; Color Urine Yellow; Glucose Urine UA Negative (Negative); Leukocyte Esterase Urine Negative (Negative); Nitrite Urine Negative (Negative); PH 5.5 (5.0-9.0); Urine Blood Negative (Negative); Urine Ketones 40 mg/dL (Negative); Urine Protein Trace mg/dL (Neg-Trace)
[2022-03-01 18:17] LABS: Amphetamine Screen Urine Not Detected (Not Detect); Barbiturates, Urine Not Detected (Not Detect); Benzodiazepines Screen Urine Not Detected (Not Detect); Cannabinoid Screen Urine POSITIVE (Not Detect); Cocaine Screen Urine POSITIVE (Not Detect); Fentanyl, urine Not Detected (Not Detect); Opiate Screen Urine Not Detected (Not Detect); Phencyclidine Screen Urine Not Detected (Not Detect)
[2022-03-01] MEDS: Ibuprofen 400 MG TABLET PO (18:47)
--- NOTE | 2022-03-01 19:33 | PC.NURSE ---
Pt. is medically cleared per . Remains on 1:1 sitter for SI. Pt. cannot go to behavioral pod d/t O2 home requirements (2L via NC) and he associated ligature risk. Pt. is currently in room 15, but is coming out of the room to be moved to 6H bed while remaining on 1:1 sitter.
[2022-03-01] MEDS: Gabapentin 300 MG CAPSULE 900 MG PO (22:41)
[2022-03-01] MEDS: Prazosin HCL 1 MG CAPSULE 3 MG PO (22:41)
[2022-03-01 23:13] VITALS: BP 170/77; PULSE 67; RESP 16; TEMP 36.6; O2SAT 98
--- NOTE | 2022-03-02 01:06 | PC.NURSE ---
pt sleeping at this time in the hallway. respirations are even and unlabored. 1:[address] for safety
[2022-03-02] MEDS: Omeprazole 40 MG CAPSULE.DR PO (05:03)
[2022-03-02 05:54] VITALS: BP 114/57; PULSE 72; RESP 16; TEMP 36.8; O2SAT 97
[2022-03-02] MEDS: Aspirin Enteric Coated 81 MG TABLET.DR PO (07:52)
[2022-03-02] MEDS: Nicotine 21 MG PATCH.TD24 TRANSDERMA (07:52)
[2022-03-02] MEDS: Gabapentin 300 MG CAPSULE 900 MG PO ×3 (07:52→20:37)
[2022-03-02] MEDS: amLODIPine Besylate 5 MG TABLET PO (07:53)
[2022-03-02 08:00] VITALS: BP 142/66; PULSE 60; RESP 14; TEMP 36.5; O2SAT 95
--- NOTE | 2022-03-02 08:02 | HE.PHANOTE ---
Methadone [facility] has received the methadone verification from [facility]. Patient last received methadone 130 mg on 03/01/22 @ 0600 from [facility]. Confirmed with YONI Mckinney at the clinic. Baylee Zaldivar, KianD
[2022-03-02] MEDS: methADONE HCl 20 MG/2 ML ORAL.CONC 130 MG PO (08:36)
[2022-03-02] MEDS: Ergocalciferol (Vitamin D2) 1,250 MCG CAPSULE 1250 MCG PO (08:36)
[2022-03-02 09:12] LABS: Magnesium 1.7 mg/dL (1.6-2.6)
[2022-03-02] MEDS: Albuterol Sulfate 90 MCG 8 GM INHALER 2 PUFF INHALE (11:13)
--- NOTE | 2022-03-02 11:24 | PC.NURSE ---
Call placed to [facility] to see when they would arrive to see patient. No [facility] referral sent on previous shift, referral sent at this time.
[2022-03-02] MEDS: LORazepam 1 MG TABLET PO (16:27)
--- NOTE | 2022-03-02 16:44 | PC.ADMIT ---
Addendum entered by Robert Morrison RN 03/02/22 17:05: tox screen positive for cocaine and THC Original Note: Pt is a 56 year old female who presented to [facility] from [facility] ED at approx 1600 on a cv status. Pt is covid -. Pt is on continuous oxygen 2L. Per chart review, Pt presented to [facility] ED secondary to increased depression, anxiety and vague SI. Pt reported that she is unable to care for herself and she is sick and needs help . Pt reported that sleep and appetite are poor, only getting 2hrs of sleep a night and sometimes is unable to eat. Pt reported AH telling her to harm herself and does not have a plan. Pt reported paralyzing anxiety making her unable to make it her appointments. During admit, pt reported that both of her sons are a huge trigger for her. Pt reported that her anxiety and depression are both a 10/10. Pt is on a 1:1 status. Provider notified of admission and for orders. Start treatment plan and monitor for safety.
[2022-03-02] MEDS: Ibuprofen 400 MG TABLET PO (17:52)
[2022-03-02] MEDS: Prazosin HCL 1 MG CAPSULE 3 MG PO (20:37)
[2022-03-02] MEDS: traZODone HCL 50 MG TABLET PO (20:37)
[2022-03-02] MEDS: hydrOXYzine HCL 25 MG TABLET PO (20:37)
[2022-03-02] MEDS: Mirtazapine 30 MG TABLET PO (22:25)
[2022-03-03] MEDS: traZODone HCL 50 MG TABLET PO (01:15)
[2022-03-03] MEDS: hydrOXYzine HCL 25 MG TABLET PO ×2 (06:10→21:23)
[2022-03-03] MEDS: Omeprazole 40 MG CAPSULE.DR PO (06:10)
[2022-03-03] MEDS: Ibuprofen 400 MG TABLET PO (06:10)
[2022-03-03 08:00] VITALS: BP 157/77; PULSE 74; RESP 18; TEMP 36.7; O2SAT 95
[2022-03-03] MEDS: amLODIPine Besylate 5 MG TABLET PO (08:09)
[2022-03-03] MEDS: Albuterol Sulfate 90 MCG 8 GM INHALER 2 PUFF INHALE ×2 (08:09→14:13)
[2022-03-03] MEDS: Aspirin Enteric Coated 81 MG TABLET.DR PO (08:10)
[2022-03-03] MEDS: Venlafaxine HCl ER 37.5 MG CAP.ER.24H PO (08:10)
[2022-03-03] MEDS: methADONE HCl 20 MG/2 ML ORAL.CONC 130 MG PO (08:10)
[2022-03-03] MEDS: Gabapentin 300 MG CAPSULE 900 MG PO ×3 (08:10→21:23)
[2022-03-03] MEDS: Nicotine 21 MG PATCH.TD24 TRANSDERMA (08:17)
[2022-03-03 09:13] LABS: Estimated Average Glucose 131 mg/dL; Hemoglobin A1c % 6.2 %
[2022-03-03 09:33] LABS: Alanine Aminotransferase 8 U/L (0-31); Alkaline Phosphatase 64 U/L (39-117); Anion Gap 16 (12-20); Aspartate Amino Transferase 12 U/L (5-31); Bilirubin Direct < 0.2 mg/dL (0.0-0.5); Bilirubin Total 0.3 mg/dL (0.0-1.0); Blood Urea Nitrogen 22 mg/dL (9-16); Calcium 9.5 mg/dL (8.4-10.2); Carbon Dioxide 28 mmol/L (22-29); Chloride 102 mmol/L (96-108); Cholesterol 172 mg/dL; Creatinine Clr Calc Pharmacy 63.1; Estimated Glomerular Filt Rate > 60; Glucose Fasting 142 mg/dL (60-99); HDL Cholesterol 40 mg/dL; LDL Cholesterol Calculated 101 mg/dl; Potassium 4.1 mmol/L (3.3-5.1); Sodium 142 mmol/L (135-145); Total Protein 7.1 g/dL (6.5-8.0); Triglycerides 155 mg/dL
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
[2022-03-03 09:51] LABS: Free T4 (Free Thyroxine) 0.92 ng/dL (0.71-1.85); Thyroid Stimulating Hormone 1.18 uIU/mL (0.32-4.0)
[2022-03-03 09:59] LABS: Folate 10.2 ng/mL (> or = 4.0); Vitamin B12 300 pg/mL (200-900)
[2022-03-03] MEDS: LORazepam 1 MG TABLET PO (14:14)
[2022-03-03] MEDS: Mirtazapine 30 MG TABLET PO (21:23)
[2022-03-03] MEDS: Prazosin HCL 1 MG CAPSULE 3 MG PO (21:23)
[2022-03-03 21:32] VITALS: BP 125/77; PULSE 116; TEMP 36.8; O2SAT 95
[2022-03-04 08:30] VITALS: BP 162/76; PULSE 82; RESP 16; TEMP 36.6; O2SAT 96
[2022-03-04] MEDS: Gabapentin 300 MG CAPSULE 900 MG PO ×3 (09:09→20:20)
[2022-03-04] MEDS: amLODIPine Besylate 5 MG TABLET PO (09:09)
[2022-03-04] MEDS: Omeprazole 40 MG CAPSULE.DR PO (09:09)
[2022-03-04] MEDS: Venlafaxine HCl ER 37.5 MG CAP.ER.24H PO ×2 (09:10→13:11)
[2022-03-04] MEDS: Aspirin Enteric Coated 81 MG TABLET.DR PO (09:10)
[2022-03-04] MEDS: Nicotine 21 MG PATCH.TD24 TRANSDERMA (09:10)
[2022-03-04] MEDS: methADONE HCl 20 MG/2 ML ORAL.CONC 130 MG PO (09:13)
[2022-03-04] MEDS: Ibuprofen 400 MG TABLET PO ×2 (09:55→15:17)
[2022-03-04] MEDS: Albuterol Sulfate 90 MCG 8 GM INHALER 2 PUFF INHALE (09:55)
[2022-03-04] MEDS: Fluticasone/Vilanterol 100/25 BLST.W.DEV 1 PUFF INHALE (09:55)
--- NOTE | 2022-03-04 14:33 | P.PNPSI_ITS ---
Subjective Subjective Date of Service: 03/04/22 Reason For Visit: depression Interim History: found reclining in her chair in her room reading a book, sitter nearby, O2 via NC. generally cooperative, defensive when MD asking about her cocaine use (and that at both admissions she has tested POS for cocaine yet she characterizes each of these uses as one-time events). denies any connection btwn her cocaine use and her hospitalization. c/o severe unremitting anxiety, which leads to roe bstance use. MD suggests increasing her effexor from 37.5 mg daily to 75 mg daily to address anxiety. acknowledges she did not go to her outpt appointments for mental health care but she did make it to daily methadone clinic appointments. no other complaints or requests. per staff, on 1:1 for O2 tubing. isolative, high anxiety reported. poor sleep, eating well. anx/dep 02/22 eves. incontinent x1. appeared to sleep well last night, didn't ask for any PRNs. per collateral from Lili, SW, pt informed her that ubaldo has worked in the past for her anxiety and that asking this keno writer / runner to Rx her ativan wasn't worth the fight. Mental Status Exam Mental Status Exam Narrative: calm, cooperative. no PMA/PMR. speech nml in rate, amount, loudness, tone, latency. thoughts linear and logical. affect flexible, normo-intense, non- labile. endorsing SI. no HI/AVH expressed. Diagnostics Vital Signs (24Hr): Vital Signs - 24 hr 03/03/22 21:32 Temperature 98.3 F Pulse Rate 116 H Blood Pressure 125/77 Pulse Oximetry 95 Oxygen Delivery Method Nasal Cannula Oxygen Flow Rate 2 BMI result Body Mass Index 26.4 Labs Results: 03/01/22 16:44 03/03/22 08:41 Labs: Laboratory Results - last 48 hr 03/03/22 03/03/22 03/03/22 08:41 08:41 08:41 Sodium 142 Potassium 4.1 Chloride 102 Carbon Dioxide 28 Anion Gap 16 BUN 22 H D Creatinine 0.85 Estim Creat Clear Calc 63.1 Estimated GFR > 60 Fasting Glucose 142 H Estimat Average Glucose 131 Hemoglobin A1c % 6.2 Calcium 9.5 Total Bilirubin 0.3 Direct Bilirubin < 0.2 AST 12 ALT 8 Alkaline Phosphatase 64 Total Protein 7.1 Albumin 4.0 Triglycerides 155 Cholesterol 172 LDL Cholesterol, Calc 101 HDL Cholesterol 40 Vitamin B12 300 Folate 10.2 TSH 1.18 Free T4 0.92 Imaging Radiology Impressions: ITS Impressions Chest X-Ray 03/01/22 17:16 IMPRESSION: No acute pulmonary disease. Medications Medications Current Medications Al Hydroxide/Mg Hydroxide (Magnesium Hydrox/Alum Hydrox 30 Ml Oral.Susp) 30 ml PO Q6H PRN PRN Reason: Heartburn/Nausea Albuterol Sulfate (Albuterol Sulfate 90 Mcg 8 Gm Inhaler) 2 puff INHALE Q4H PRN PRN Reason: for wheezing Last Admin: 03/04/22 09:55 Dose: 2 puff Albuterol/Ipratropium (Albuterol/Iprat 2.5/0.5mg 3 Ml Ampul.Neb) 3 ml INHALE Q4H PRN PRN Reason: shortness of breath or wheezing Amlodipine Besylate (Amlodipine Besylate 5 Mg Tablet) 5 mg PO DAILY [facility]; Protocol Last Admin: 03/04/22 09:09 Dose: 5 mg Aspirin (Aspirin Enteric Coated 81 Mg Tablet.Dr) 81 mg PO DAILY [facility] Last Admin: 03/04/22 09:10 Dose: 81 mg Ergocalciferol (Ergocalciferol (Vitamin D2) 1,250 Mcg Capsule) 1,250 mcg PO Tu@1000 [facility] Last Admin: 03/02/22 08:36 Dose: 1,250 mcg Fluticasone/Vilanterol (Fluticasone/Vilanterol 100/25 Blst.W.Dev) 1 puff INHALE RDAILY [facility] Last Admin: 03/04/22 09:55 Dose: 1 puff Gabapentin (Gabapentin 300 Mg Capsule) 900 mg PO TID [facility] Last Admin: 03/04/22 09:09 Dose: 900 mg Hydroxyzine HCl (Hydroxyzine Hcl 25 Mg Tablet) 25 mg PO Q6H PRN PRN Reason: Anxiety Last Admin: 03/03/22 21:23 Dose: 25 mg Ibuprofen (Ibuprofen 400 Mg Tablet) 400 mg PO Q6H PRN PRN Reason: pain, moderate Last Admin: 03/04/22 09:55 Dose: 400 mg Lorazepam (Lorazepam 1 Mg Tablet) 1 mg PO DAILY PRN PRN Reason: Anxiety Last Admin: 03/03/22 14:14 Dose: 1 mg Magnesium Hydroxide (Milk Of Magnesia 30 Ml Oral.Susp) 30 ml PO DAILY PRN PRN Reason: Constipation Methadone HCl (Methadone Hcl 20 Mg/2 Ml Oral.Conc) 130 mg PO DAILY [facility] Last Admin: 03/04/22 09:13 Dose: 130 mg Mirtazapine (Mirtazapine 30 Mg Tablet) 30 mg PO BEDTIME PRN PRN Reason: Sleep Last Admin: 03/03/22 21:23 Dose: 30 mg Nicotine (Nicotine 21 Mg Patch.Td24) 21 mg TRANSDERMA DAILY [facility] Last Admin: 03/04/22 09:10 Dose: 21 mg Nicotine Polacrilex (Nicotine Polacrilex 2 Mg Gum) 4 mg BUCCAL Q2H PRN PRN Reason: Nicotine Cravings Omeprazole (Omeprazole 40 Mg Capsule.Dr) 40 mg PO DAILY@0630 [facility] Last Admin: 03/04/22 09:09 Dose: 40 mg Prazosin HCl (Prazosin Hcl 1 Mg Capsule) 3 mg PO BEDTIME [facility]; Protocol Last Admin: 03/03/22 21:23 Dose: 3 mg Trazodone HCl (Trazodone Hcl 50 Mg Tablet) 50 mg PO BEDTIME PRN PRN Reason: Insomnia Last Admin: 03/03/22 01:15 Dose: 50 mg Venlafaxine HCl (Venlafaxine Hcl Er 75 Mg Cap.Er.24h) 75 mg PO DAILY [facility] Allergies Allergies Allergy/AdvReac Type Severity Reaction Status Date / Time acetaminophen [Vicodin] Allergy Unknown Unknown Verified 09/24/21 15:13 hydrocodone [Vicodin] Allergy Unknown Unknown Verified 09/24/21 15:13 sumatriptan [From IMITREX] Allergy Unknown VOMITING,RA Verified 09/24/21 15:13 Assessment & Plan Assessment & Plan (1) MDD (major depressive disorder), recurrent episode, moderate: Status: Acute Code(s): F33.1 - Major depressive disorder, recurrent, moderate (2) Cocaine use disorder, moderate, dependence: Status: Acute Code(s): F14.20 - Cocaine dependence, uncomplicated Plan Ms. Sanon is a 56 year-old woman with hx of MDD, cocaine use disorder, opioid use disorder on MAT who called 911 was brought via EMS reporting increase anxious mood, inability to function due to severe anxiety, asking for higher prescription of ativan. Pt recently discharged from , did not follow up with referrals/appointments. Utox positive for cocaine. Pt minimizes use of cocaine and effects on mood. We discussed risks, benefits and alternative treatment options. discuss risk of respiratory supression given her underlying respiratory conditions (COPD on oxygen, high dose of methadone) higher doses of ativan along with concerns of misuse or abuse as she continues to work on substance use now mostly cocaine. 03/03: continue current medications. aftercare planning. 03/04: increase effexor XR to 75 mg daily as of today. add low-dose seroquel for anxiety. plan to DC ativan. I spent ___25___ minutes with the patient and/or on the patient floor today, greater than?50% of which was spent counseling/coordinating care. Patient educated on: medication risk/benefits and substance abuse Reason for contiued inpatient stay Substantial Risk for: harm to self, inability to function and rapid decompensation
[2022-03-04] MEDS: LORazepam 1 MG TABLET PO (15:25)
[2022-03-04] MEDS: cloNIDine HCL 0.1 MG TABLET PO (17:47)
[2022-03-04 17:55] VITALS: BP 176/84; PULSE 88
[2022-03-04] MEDS: Ondansetron ODT 4 MG TAB.RAPDIS TRANSLINGU (18:19)
[2022-03-04 20:20] VITALS: BP 142/65; PULSE 75; RESP 20; TEMP 36.6; O2SAT 95
[2022-03-04] MEDS: Prazosin HCL 1 MG CAPSULE 3 MG PO (20:21)
[2022-03-04] MEDS: Mirtazapine 30 MG TABLET PO (20:21)
[2022-03-04] MEDS: QUEtiapine Fumarate 50 MG TABLET 12.5 MG PO (20:22)
[2022-03-05] MEDS: traZODone HCL 50 MG TABLET PO (02:54)
[2022-03-05] MEDS: QUEtiapine Fumarate 25 MG TABLET 12.5 MG PO ×2 (03:06→11:44)
[2022-03-05 06:00] VITALS: BP 126/60; PULSE 63; RESP 16; TEMP 36.6; O2SAT 95
[2022-03-05] MEDS: Omeprazole 40 MG CAPSULE.DR PO (07:27)
[2022-03-05] MEDS: Gabapentin 300 MG CAPSULE 900 MG PO ×3 (08:54→21:19)
[2022-03-05] MEDS: Aspirin Enteric Coated 81 MG TABLET.DR PO (08:55)
[2022-03-05] MEDS: Venlafaxine HCl ER 75 MG CAP.ER.24H PO (08:55)
[2022-03-05] MEDS: Albuterol Sulfate 90 MCG 8 GM INHALER 2 PUFF INHALE (08:55)
[2022-03-05] MEDS: Fluticasone/Vilanterol 100/25 BLST.W.DEV 1 PUFF INHALE (08:55)
[2022-03-05] MEDS: amLODIPine Besylate 5 MG TABLET PO (08:56)
[2022-03-05] MEDS: methADONE HCl 20 MG/2 ML ORAL.CONC 130 MG PO (09:00)
[2022-03-05] MEDS: Nicotine 21 MG PATCH.TD24 TRANSDERMA (10:29)
--- NOTE | 2022-03-05 13:58 | P.PNPSI_ITS ---
Subjective Subjective Date of Service: 03/05/22 Reason For Visit: depression Interim History: lying in recliner with O2 in, sitter at bedside. calm, cooperative, appears relaxed. c/o nausea since starting increased dose of effexor. MD educates re SNRI side effects and counsels patience. has gotten some zofran for nausea. discuss her seroquel history, she states that the 12.5 mg seroquel PRN was helpful for her last night. states she did have trouble sleeping and agrees to start 50 mg seroquel at HS as of this evening. no other complaints or requests. per staff, not attending groups. showered yesterday. denies SI/HI/AVH, c/o terrible anxiety. c/o right flank pain, nausea. asked for seroquel, trazodone for sleep.observed not to be using O2, satting 89% on ra (95% on NC). Mental Status Exam Mental Status Exam Narrative: calm, cooperative. no PMA/PMR. speech nml in rate, amount, loudness, tone, latency. thoughts linear and logical. affect flexible, normo-intense, non- labile. no SI/HI/AVH expressed. Diagnostics Vital Signs (24Hr): Vital Signs - 24 hr 03/04/22 17:55 03/04/22 20:20 03/05/22 06:00 Temperature 97.8 F 97.9 F Pulse Rate 88 75 63 Respiratory Rate 20 16 Blood Pressure 176/84 H 142/65 H 126/60 Pulse Oximetry 95 95 Oxygen Delivery Method Nasal Cannula Nasal Cannula Oxygen Flow Rate 2 2 BMI result Body Mass Index 26.4 Labs Results: 03/01/22 16:44 03/03/22 08:41 Imaging Radiology Impressions: ITS Impressions Chest X-Ray 03/01/22 17:16 IMPRESSION: No acute pulmonary disease. Medications Medications Current Medications Al Hydroxide/Mg Hydroxide (Magnesium Hydrox/Alum Hydrox 30 Ml Oral.Susp) 30 ml PO Q6H PRN PRN Reason: Heartburn/Nausea Albuterol Sulfate (Albuterol Sulfate 90 Mcg 8 Gm Inhaler) 2 puff INHALE Q4H PRN PRN Reason: for wheezing Last Admin: 03/05/22 08:55 Dose: 2 puff Albuterol/Ipratropium (Albuterol/Iprat 2.5/0.5mg 3 Ml Ampul.Neb) 3 ml INHALE Q4H PRN PRN Reason: shortness of breath or wheezing Amlodipine Besylate (Amlodipine Besylate 5 Mg Tablet) 5 mg PO DAILY [facility]; Protocol Last Admin: 03/05/22 08:56 Dose: 5 mg Aspirin (Aspirin Enteric Coated 81 Mg Tablet.) 81 mg PO DAILY [facility] Last Admin: 03/05/22 08:55 Dose: 81 mg Ergocalciferol (Ergocalciferol (Vitamin D2) 1,250 Mcg Capsule) 1,250 mcg PO Tu@1000 [facility] Last Admin: 03/02/22 08:36 Dose: 1,250 mcg Fluticasone/Vilanterol (Fluticasone/Vilanterol 100/25 Blst.W.Dev) 1 puff INHALE RDAILY [facility] Last Admin: 03/05/22 08:55 Dose: 1 puff Gabapentin (Gabapentin 300 Mg Capsule) 900 mg PO TID [facility] Last Admin: 03/05/22 08:54 Dose: 900 mg Ibuprofen (Ibuprofen 400 Mg Tablet) 400 mg PO Q6H PRN PRN Reason: pain, moderate Last Admin: 03/04/22 15:17 Dose: 400 mg Lorazepam (Lorazepam 1 Mg Tablet) 1 mg PO DAILY PRN PRN Reason: severe anxiety Last Admin: 03/04/22 15:25 Dose: 1 mg Magnesium Hydroxide (Milk Of Magnesia 30 Ml Oral.Susp) 30 ml PO DAILY PRN PRN Reason: Constipation Methadone HCl (Methadone Hcl 20 Mg/2 Ml Oral.Conc) 130 mg PO DAILY [facility] Last Admin: 03/05/22 09:00 Dose: 130 mg Mirtazapine (Mirtazapine 30 Mg Tablet) 30 mg PO BEDTIME PRN PRN Reason: Sleep Last Admin: 03/04/22 20:21 Dose: 30 mg Nicotine (Nicotine 21 Mg Patch.Td24) 21 mg TRANSDERMA DAILY [facility] Last Admin: 03/05/22 10:29 Dose: 21 mg Nicotine Polacrilex (Nicotine Polacrilex 2 Mg Gum) 4 mg BUCCAL Q2H PRN PRN Reason: Nicotine Cravings Omeprazole (Omeprazole 40 Mg Capsule.) 40 mg PO DAILY@0630 [facility] Last Admin: 03/05/22 07:27 Dose: 40 mg Prazosin HCl (Prazosin Hcl 1 Mg Capsule) 3 mg PO BEDTIME [facility]; Protocol Last Admin: 03/04/22 20:21 Dose: 3 mg Quetiapine Fumarate (Quetiapine Fumarate 25 Mg Tablet) 12.5 mg PO Q4H PRN PRN Reason: anxiety Last Admin: 03/05/22 11:44 Dose: 12.5 mg Quetiapine Fumarate (Quetiapine Fumarate 50 Mg Tablet) 50 mg PO BEDTIME [facility] Venlafaxine HCl (Venlafaxine Hcl Er 75 Mg Cap.Er.24h) 75 mg PO DAILY [facility] Last Admin: 03/05/22 08:55 Dose: 75 mg Allergies Allergies Allergy/AdvReac Type Severity Reaction Status Date / Time acetaminophen [Vicodin] Allergy Unknown Unknown Verified 09/24/21 15:13 hydrocodone [Vicodin] Allergy Unknown Unknown Verified 09/24/21 15:13 sumatriptan [From IMITREX] Allergy Unknown VOMITING,RA Verified 09/24/21 15:13 SH Assessment & Plan Assessment & Plan (1) MDD (major depressive disorder), recurrent episode, moderate: Status: Acute Code(s): F33.1 - Major depressive disorder, recurrent, moderate (2) Cocaine use disorder, moderate, dependence: Status: Acute Code(s): F14.20 - Cocaine dependence, uncomplicated Plan Ms. Sanon is a 56 year-old woman with hx of MDD, cocaine use disorder, opioid use disorder on MAT who called 911 was brought via EMS reporting increase anxious mood, inability to function due to severe anxiety, asking for higher prescription of ativan. Pt recently discharged from , did not follow up with referrals/appointments. Utox positive for cocaine. Pt minimizes use of cocaine and effects on mood. We discussed risks, benefits and alternative treatment options. discuss risk of respiratory supression given her underlying respiratory conditions (COPD on oxygen, high dose of methadone) higher doses of ativan along with concerns of misuse or abuse as she continues to work on substance use now mostly cocaine. 03/03: continue current medications. aftercare planning. 03/04: increase effexor XR to 75 mg daily as of today. add low-dose seroquel for anxiety. plan to DC ativan. 03/05: continue effexor for now despite c/o nausea which she is attributing to the medication increase. continue seroquel 12.5 PRN anxiety, add seroquel 50 mg QHS for insomnia. no other changes to regimen. I spent __25____ minutes with the patient and/or on the patient floor today, greater than?50% of which was spent counseling/coordinating care. Patient educated on: medication risk/benefits Reason for contiued inpatient stay Substantial Risk for: harm to self, inability to function and rapid decompensation
[2022-03-05] MEDS: LORazepam 1 MG TABLET PO (15:14)
[2022-03-05] MEDS: Ondansetron ODT 4 MG TAB.RAPDIS TRANSLINGU ×2 (17:25→21:20)
[2022-03-05 21:13] VITALS: BP 166/70; PULSE 66; RESP 18; TEMP 36.6; O2SAT 96
[2022-03-05] MEDS: Mirtazapine 30 MG TABLET PO (21:18)
[2022-03-05] MEDS: Prazosin HCL 1 MG CAPSULE 3 MG PO (21:18)
[2022-03-05] MEDS: QUEtiapine Fumarate 50 MG TABLET PO (21:19)
[2022-03-06] MEDS: Omeprazole 40 MG CAPSULE.DR PO (05:10)
[2022-03-06] MEDS: Ibuprofen 400 MG TABLET PO (05:10)
[2022-03-06] MEDS: QUEtiapine Fumarate 25 MG TABLET 12.5 MG PO ×2 (05:10→13:04)
--- NOTE | 2022-03-06 08:07 | P.PNPSI_ITS ---
Subjective Subjective Date of Service: 03/06/22 Reason For Visit: depression Subjective Notes: Conditional Voluntary Healthcare Proxy: No Medical Problems Affecting Mental Status: Yes (constant O2) Interim History: Patient was seen and discussed in rounds today. Records and plans were reviewed. She is on one-to-one and on oxygen. She was sitting comfortably in her recliner. She has been having some side effects on the Effexor which was recently increased. Eating and sleeping adequately with Seroquel. No SI. No complaints. No changes were made today Medication Compliance: Yes Side effects from medications: Yes (effexor with nausea) Attending Groups: No Review of Systems Constitutional: Reports lethargy Eyes: Reports no additional eye complaints Cardiovascular: Denies chest pain, Denies irregular heart rhythm and Denies lightheadedness Respiratory: Denies chest congestion Mental Status Exam Mental Status Exam Narrative: In today's visit she is alert, oriented and pleasant. Normal speech. Moderate eye contact. Affect is appropriate and subdued. Moderate dysphoria present. No signs of psychosis. No SI. Cognitively is grossly intact with slow thought processes. Judgment is intact Diagnostics Vital Signs (24Hr): Vital Signs - 24 hr 03/05/22 21:13 Temperature 97.8 F Pulse Rate 66 Respiratory Rate 18 Blood Pressure 166/70 H Pulse Oximetry 96 Oxygen Delivery Method Nasal Cannula Oxygen Flow Rate 2 BMI result Body Mass Index 26.4 Labs Results: 03/01/22 16:44 03/03/22 08:41 Imaging Radiology Impressions: ITS Impressions Chest X-Ray 03/01/22 17:16 IMPRESSION: No acute pulmonary disease. Medications Medications Current Medications Al Hydroxide/Mg Hydroxide (Magnesium Hydrox/Alum Hydrox 30 Ml Oral.Susp) 30 ml PO Q6H PRN PRN Reason: Heartburn/Nausea Albuterol Sulfate (Albuterol Sulfate 90 Mcg 8 Gm Inhaler) 2 puff INHALE Q4H PRN PRN Reason: for wheezing Last Admin: 03/05/22 08:55 Dose: 2 puff Albuterol/Ipratropium (Albuterol/Iprat 2.5/0.5mg 3 Ml Ampul.Neb) 3 ml INHALE Q4H PRN PRN Reason: shortness of breath or wheezing Amlodipine Besylate (Amlodipine Besylate 5 Mg Tablet) 5 mg PO DAILY [facility]; Protocol Last Admin: 03/05/22 08:56 Dose: 5 mg Aspirin (Aspirin Enteric Coated 81 Mg Tablet.) 81 mg PO DAILY [facility] Last Admin: 03/05/22 08:55 Dose: 81 mg Ergocalciferol (Ergocalciferol (Vitamin D2) 1,250 Mcg Capsule) 1,250 mcg PO Tu@1000 [facility] Last Admin: 03/02/22 08:36 Dose: 1,250 mcg Fluticasone/Vilanterol (Fluticasone/Vilanterol 100/25 Blst.W.Dev) 1 puff INHALE RDAILY [facility] Last Admin: 03/05/22 08:55 Dose: 1 puff Gabapentin (Gabapentin 300 Mg Capsule) 900 mg PO TID [facility] Last Admin: 03/05/22 21:19 Dose: 900 mg Ibuprofen (Ibuprofen 400 Mg Tablet) 400 mg PO Q6H PRN PRN Reason: pain, moderate Last Admin: 03/06/22 05:10 Dose: 400 mg Lorazepam (Lorazepam 1 Mg Tablet) 1 mg PO DAILY PRN PRN Reason: severe anxiety Last Admin: 03/05/22 15:14 Dose: 1 mg Magnesium Hydroxide (Milk Of Magnesia 30 Ml Oral.Susp) 30 ml PO DAILY PRN PRN Reason: Constipation Methadone HCl (Methadone Hcl 20 Mg/2 Ml Oral.Conc) 130 mg PO DAILY [facility] Last Admin: 03/05/22 09:00 Dose: 130 mg Mirtazapine (Mirtazapine 30 Mg Tablet) 30 mg PO BEDTIME PRN PRN Reason: Sleep Last Admin: 03/05/22 21:18 Dose: 30 mg Nicotine (Nicotine 21 Mg Patch.Td24) 21 mg TRANSDERMA DAILY [facility] Last Admin: 03/05/22 10:29 Dose: 21 mg Nicotine Polacrilex (Nicotine Polacrilex 2 Mg Gum) 4 mg BUCCAL Q2H PRN PRN Reason: Nicotine Cravings Omeprazole (Omeprazole 40 Mg Capsule.Dr) 40 mg PO DAILY@0630 [facility] Last Admin: 03/06/22 05:10 Dose: 40 mg Ondansetron HCl (Ondansetron Odt 4 Mg Tab.Rapdis) 4 mg TRANSLINGU TID PRN PRN Reason: Nausea Last Admin: 03/05/22 21:20 Dose: 4 mg Prazosin HCl (Prazosin Hcl 1 Mg Capsule) 3 mg PO BEDTIME [facility]; Protocol Last Admin: 03/05/22 21:18 Dose: 3 mg Quetiapine Fumarate (Quetiapine Fumarate 25 Mg Tablet) 12.5 mg PO Q4H PRN PRN Reason: anxiety Last Admin: 03/06/22 05:10 Dose: 12.5 mg Quetiapine Fumarate (Quetiapine Fumarate 50 Mg Tablet) 50 mg PO BEDTIME [facility] Last Admin: 03/05/22 21:19 Dose: 50 mg Venlafaxine HCl (Venlafaxine Hcl Er 75 Mg Cap.Er.24h) 75 mg PO DAILY [facility] Last Admin: 03/05/22 08:55 Dose: 75 mg Allergies Allergies Allergy/AdvReac Type Severity Reaction Status Date / Time acetaminophen [Vicodin] Allergy Unknown Unknown Verified 09/24/21 15:13 hydrocodone [Vicodin] Allergy Unknown Unknown Verified 09/24/21 15:13 sumatriptan [From IMITREX] Allergy Unknown VOMITING,RA Verified 09/24/21 15:13 SH Assessment & Plan Assessment & Plan (1) MDD (major depressive disorder), recurrent episode, moderate: Status: Acute Code(s): F33.1 - Major depressive disorder, recurrent, moderate (2) Cocaine use disorder, moderate, dependence: Status: Acute Code(s): F14.20 - Cocaine dependence, uncomplicated Plan Ms. Sanon is a 56 year-old woman with hx of MDD, cocaine use disorder, opioid use disorder on MAT who called 911 was brought via EMS reporting increase anxious mood, inability to function due to severe anxiety, asking for higher prescription of ativan. Pt recently discharged from , did not follow up with referrals/appointments. Utox positive for cocaine. Pt minimizes use of cocaine and effects on mood. We discussed risks, benefits and alternative treatment options. discuss risk of respiratory supression given her underlying respiratory conditions (COPD on oxygen, high dose of methadone) higher doses of ativan along with concerns of misuse or abuse as she continues to work on substance use now mostly cocaine. 03/03: continue current medications. aftercare planning. 03/04: increase effexor XR to 75 mg daily as of today. add low-dose seroquel for anxiety. plan to DC ativan. 03/05: continue effexor for now despite c/o nausea which she is attributing to the medication increase. continue seroquel 12.5 PRN anxiety, add seroquel 50 mg QHS for insomnia. no other changes to regimen. 03/06: Continue current regimen and plans. No changes were made today I spent minutes with the patient and/or on the patient floor today, greater than?50% of which was spent counseling/coordinating care. Reason for contiued inpatient stay Substantial Risk for: med/psych decompensation
[2022-03-06 08:15] VITALS: BP 128/61; PULSE 62; RESP 16; TEMP 36.4; O2SAT 96
[2022-03-06] MEDS: Albuterol Sulfate 90 MCG 8 GM INHALER 2 PUFF INHALE (08:23)
[2022-03-06] MEDS: Fluticasone/Vilanterol 100/25 BLST.W.DEV 1 PUFF INHALE (08:23)
[2022-03-06] MEDS: methADONE HCl 20 MG/2 ML ORAL.CONC 130 MG PO (08:25)
[2022-03-06] MEDS: Nicotine 21 MG PATCH.TD24 TRANSDERMA (08:26)
[2022-03-06] MEDS: Gabapentin 300 MG CAPSULE 900 MG PO ×3 (08:26→20:38)
[2022-03-06] MEDS: Aspirin Enteric Coated 81 MG TABLET.DR PO (08:29)
[2022-03-06] MEDS: Venlafaxine HCl ER 75 MG CAP.ER.24H PO (08:30)
[2022-03-06] MEDS: amLODIPine Besylate 5 MG TABLET PO (08:30)
[2022-03-06] MEDS: Ondansetron ODT 4 MG TAB.RAPDIS TRANSLINGU ×3 (08:33→20:37)
[2022-03-06] MEDS: LORazepam 1 MG TABLET PO (15:01)
[2022-03-06 20:30] VITALS: BP 146/70; PULSE 73; RESP 16; TEMP 36.1; O2SAT 98
[2022-03-06] MEDS: QUEtiapine Fumarate 50 MG TABLET PO (20:37)
[2022-03-06] MEDS: Prazosin HCL 1 MG CAPSULE 3 MG PO (20:37)
[2022-03-06] MEDS: Mirtazapine 30 MG TABLET PO (20:38)
[2022-03-07 07:59] VITALS: BP 141/65; PULSE 69; RESP 16; TEMP 36.6; O2SAT 96
[2022-03-07] MEDS: methADONE HCl 20 MG/2 ML ORAL.CONC 130 MG PO (08:11)
[2022-03-07] MEDS: Nicotine 21 MG PATCH.TD24 TRANSDERMA (08:13)
[2022-03-07] MEDS: amLODIPine Besylate 5 MG TABLET PO (08:14)
[2022-03-07] MEDS: Gabapentin 300 MG CAPSULE 900 MG PO ×3 (08:14→21:08)
[2022-03-07] MEDS: Venlafaxine HCl ER 75 MG CAP.ER.24H PO (08:14)
[2022-03-07] MEDS: Aspirin Enteric Coated 81 MG TABLET.DR PO (08:14)
[2022-03-07] MEDS: Omeprazole 40 MG CAPSULE.DR PO (08:15)
[2022-03-07] MEDS: Fluticasone/Vilanterol 100/25 BLST.W.DEV 1 PUFF INHALE (08:20)
[2022-03-07] MEDS: Albuterol Sulfate 90 MCG 8 GM INHALER 2 PUFF INHALE (08:20)
[2022-03-07] MEDS: QUEtiapine Fumarate 25 MG TABLET 12.5 MG PO (08:21)
--- NOTE | 2022-03-07 09:36 | HO.PSYCHPN ---
Subjective Subjective Date of Service: 03/07/22 Reason For Visit: depression Subjective Notes: Conditional Voluntary Healthcare Proxy: No Medical Problems Affecting Mental Status: Yes (constant O2) Interim History: Patient was seen and discussed in rounds today. Records and plans were reviewed. She continues to be on oxygen and on one-to-one level observation. She states that she had poor sleep and continues to feel nauseous with some relief from Zofran. I suggested trying hydroxyzine to see if that works any better for her. It appears that since the increase of Effexor she has been having the nausea. No SI. No changes were made today Medication Compliance: Yes Side effects from medications: Yes (effexor with nausea) Attending Groups: No Review of Systems Constitutional: Reports lethargy Eyes: Reports no additional eye complaints Cardiovascular: Denies chest pain, Denies irregular heart rhythm and Denies lightheadedness Respiratory: Denies chest congestion Mental Status Exam Mental Status Exam Narrative: In today's visit she is alert, oriented and pleasant. Normal speech. Moderate eye contact. Affect is appropriate and subdued. Moderate dysphoria present. No signs of psychosis. No SI. Cognitively is grossly intact with slow thought processes. Judgment is intact Diagnostics Vital Signs (24Hr): Vital Signs - 24 hr 03/06/22 20:30 03/07/22 07:59 Temperature 96.9 F 97.9 F Pulse Rate 73 69 Respiratory Rate 16 16 Blood Pressure 146/70 H 141/65 H Pulse Oximetry 98 96 Oxygen Delivery Method Nasal Cannula Nasal Cannula Oxygen Flow Rate 2 2 BMI result Body Mass Index 26.4 Labs Results: 03/01/22 16:44 03/03/22 08:41 Imaging Radiology Impressions: ITS Impressions Chest X-Ray 03/01/22 17:16 IMPRESSION: No acute pulmonary disease. Medications Medications Current Medications Al Hydroxide/Mg Hydroxide (Magnesium Hydrox/Alum Hydrox 30 Ml Oral.Susp) 30 ml PO Q6H PRN PRN Reason: Heartburn/Nausea Albuterol Sulfate (Albuterol Sulfate 90 Mcg 8 Gm Inhaler) 2 puff INHALE Q4H PRN PRN Reason: for wheezing Last Admin: 03/07/22 08:20 Dose: 2 puff Albuterol/Ipratropium (Albuterol/Iprat 2.5/0.5mg 3 Ml Ampul.Neb) 3 ml INHALE Q4H PRN PRN Reason: shortness of breath or wheezing Amlodipine Besylate (Amlodipine Besylate 5 Mg Tablet) 5 mg PO DAILY [facility]; Protocol Last Admin: 03/07/22 08:14 Dose: 5 mg Aspirin (Aspirin Enteric Coated 81 Mg Tablet.) 81 mg PO DAILY [facility] Last Admin: 03/07/22 08:14 Dose: 81 mg Ergocalciferol (Ergocalciferol (Vitamin D2) 1,250 Mcg Capsule) 1,250 mcg PO Tu@1000 [facility] Last Admin: 03/02/22 08:36 Dose: 1,250 mcg Fluticasone/Vilanterol (Fluticasone/Vilanterol 100/25 Blst.W.Dev) 1 puff INHALE RDAILY [facility] Last Admin: 03/07/22 08:20 Dose: 1 puff Gabapentin (Gabapentin 300 Mg Capsule) 900 mg PO TID [facility] Last Admin: 03/07/22 08:14 Dose: 900 mg Ibuprofen (Ibuprofen 400 Mg Tablet) 400 mg PO Q6H PRN PRN Reason: pain, moderate Last Admin: 03/06/22 05:10 Dose: 400 mg Lorazepam (Lorazepam 1 Mg Tablet) 1 mg PO DAILY PRN PRN Reason: severe anxiety Last Admin: 03/06/22 15:01 Dose: 1 mg Magnesium Hydroxide (Milk Of Magnesia 30 Ml Oral.Susp) 30 ml PO DAILY PRN PRN Reason: Constipation Methadone HCl (Methadone Hcl 20 Mg/2 Ml Oral.Conc) 130 mg PO DAILY [facility] Last Admin: 03/07/22 08:11 Dose: 130 mg Mirtazapine (Mirtazapine 30 Mg Tablet) 30 mg PO BEDTIME PRN PRN Reason: Sleep Last Admin: 03/06/22 20:38 Dose: 30 mg Nicotine (Nicotine 21 Mg Patch.Td24) 21 mg TRANSDERMA DAILY [facility] Last Admin: 03/07/22 08:13 Dose: 21 mg Nicotine Polacrilex (Nicotine Polacrilex 2 Mg Gum) 4 mg BUCCAL Q2H PRN PRN Reason: Nicotine Cravings Omeprazole (Omeprazole 40 Mg Capsule.) 40 mg PO DAILY@0630 [facility] Last Admin: 03/07/22 08:15 Dose: 40 mg Ondansetron HCl (Ondansetron Odt 4 Mg Tab.Rapdis) 4 mg TRANSLINGU TID PRN PRN Reason: Nausea Last Admin: 03/06/22 20:37 Dose: 4 mg Prazosin HCl (Prazosin Hcl 1 Mg Capsule) 3 mg PO BEDTIME [facility]; Protocol Last Admin: 03/06/22 20:37 Dose: 3 mg Quetiapine Fumarate (Quetiapine Fumarate 25 Mg Tablet) 12.5 mg PO Q4H PRN PRN Reason: anxiety Last Admin: 03/07/22 08:21 Dose: 12.5 mg Quetiapine Fumarate (Quetiapine Fumarate 50 Mg Tablet) 50 mg PO BEDTIME [facility] Last Admin: 03/06/22 20:37 Dose: 50 mg Venlafaxine HCl (Venlafaxine Hcl Er 75 Mg Cap.Er.24h) 75 mg PO DAILY [facility] Last Admin: 03/07/22 08:14 Dose: 75 mg Allergies Allergies Allergy/AdvReac Type Severity Reaction Status Date / Time acetaminophen [Vicodin] Allergy Unknown Unknown Verified 09/24/21 15:13 hydrocodone [Vicodin] Allergy Unknown Unknown Verified 09/24/21 15:13 sumatriptan [From IMITREX] Allergy Unknown VOMITING,RA Verified 09/24/21 15:13 SH Assessment & Plan Assessment & Plan (1) MDD (major depressive disorder), recurrent episode, moderate: Status: Acute Code(s): F33.1 - Major depressive disorder, recurrent, moderate (2) Cocaine use disorder, moderate, dependence: Status: Acute Code(s): F14.20 - Cocaine dependence, uncomplicated Plan Ms. Sanon is a 56 year-old woman with hx of MDD, cocaine use disorder, opioid use disorder on MAT who called 911 was brought via EMS reporting increase anxious mood, inability to function due to severe anxiety, asking for higher prescription of ativan. Pt recently discharged from , did not follow up with referrals/appointments. Utox positive for cocaine. Pt minimizes use of cocaine and effects on mood. We discussed risks, benefits and alternative treatment options. discuss risk of respiratory supression given her underlying respiratory conditions (COPD on oxygen, high dose of methadone) higher doses of ativan along with concerns of misuse or abuse as she continues to work on substance use now mostly cocaine. 03/03: continue current medications. aftercare planning. 03/04: increase effexor XR to 75 mg daily as of today. add low-dose seroquel for anxiety. plan to DC ativan. 03/05: continue effexor for now despite c/o nausea which she is attributing to the medication increase. continue seroquel 12.5 PRN anxiety, add seroquel 50 mg QHS for insomnia. no other changes to regimen. 03/06: Continue current regimen and plans. No changes were made today 03/07: Continue current plans and regimen. I spent minutes with the patient and/or on the patient floor today, greater than?50% of which was spent counseling/coordinating care. Reason for contiued inpatient stay Substantial Risk for: med/psych decompensation
[2022-03-07] MEDS: TiZANidine HCL 4 MG TABLET 2 MG PO ×2 (11:45→21:09)
[2022-03-07] MEDS: LORazepam 1 MG TABLET PO (14:02)
[2022-03-07] MEDS: Ibuprofen 400 MG TABLET PO (18:18)
[2022-03-07 21:05] VITALS: BP 152/70; PULSE 72; RESP 16; TEMP 36.1; O2SAT 99
[2022-03-07] MEDS: Prazosin HCL 1 MG CAPSULE 3 MG PO (21:09)
[2022-03-07] MEDS: Mirtazapine 30 MG TABLET PO (21:09)
[2022-03-07] MEDS: QUEtiapine Fumarate 50 MG TABLET PO (21:09)
[2022-03-08] MEDS: QUEtiapine Fumarate 25 MG TABLET 12.5 MG PO (06:32)
[2022-03-08] MEDS: TiZANidine HCL 4 MG TABLET 2 MG PO (06:33)
[2022-03-08] MEDS: Fluticasone/Vilanterol 100/25 BLST.W.DEV 1 PUFF INHALE (09:43)
[2022-03-08] MEDS: Omeprazole 40 MG CAPSULE.DR PO (09:43)
[2022-03-08] MEDS: Gabapentin 300 MG CAPSULE 900 MG PO ×3 (09:44→21:10)
[2022-03-08] MEDS: Venlafaxine HCl ER 75 MG CAP.ER.24H PO (09:44)
[2022-03-08] MEDS: Aspirin Enteric Coated 81 MG TABLET.DR PO (09:44)
[2022-03-08] MEDS: Nicotine 21 MG PATCH.TD24 TRANSDERMA (09:44)
[2022-03-08] MEDS: Ibuprofen 400 MG TABLET PO ×2 (09:44→16:47)
[2022-03-08] MEDS: amLODIPine Besylate 5 MG TABLET PO (09:44)
[2022-03-08] MEDS: methADONE HCl 20 MG/2 ML ORAL.CONC 130 MG PO (09:45)
[2022-03-08 10:04] VITALS: BP 143/65; PULSE 78; RESP 16; TEMP 36.3; O2SAT 94
[2022-03-08] MEDS: Ondansetron ODT 4 MG TAB.RAPDIS TRANSLINGU ×3 (12:43→21:10)
[2022-03-08] MEDS: LORazepam 1 MG TABLET PO (15:02)
--- NOTE | 2022-03-08 15:56 | HO.PSYCHPN ---
Subjective Subjective Date of Service: 03/08/22 Reason For Visit: depression Interim History: lying in her recliner chair, oxygen via [place], sitter at bedside. c/o sweats and pressure in the back of her head. also sick to my stomach. agres with plan to decrease effexor back to 37.5 mg tomorrow to see if Sx subside (she believes they are related to effexor dose increase last week). planning for discharge weds. feels seroquel has been helpful for both anxiety and sleep. Mental Status Exam Mental Status Exam Narrative: calm, cooperative. no PMA/PMR. speech nml in rate, amount, loudness, tone, latency. thoughts linear and logical. affect constricted, normo-intense, non-labile. no SI/HI/AVH expressed. Diagnostics Vital Signs (24Hr): Vital Signs - 24 hr 03/07/22 21:05 03/08/22 10:04 Temperature 97.0 F 97.4 F Pulse Rate 72 78 Respiratory Rate 16 16 Blood Pressure 152/70 H 143/65 H Pulse Oximetry 99 94 Oxygen Delivery Method Nasal Cannula Nasal Cannula Oxygen Flow Rate 2 BMI result Body Mass Index 26.4 Labs Results: 03/01/22 16:44 03/03/22 08:41 Imaging Radiology Impressions: ITS Impressions Chest X-Ray 03/01/22 17:16 IMPRESSION: No acute pulmonary disease. Medications Medications Current Medications Al Hydroxide/Mg Hydroxide (Magnesium Hydrox/Alum Hydrox 30 Ml Oral.Susp) 30 ml PO Q6H PRN PRN Reason: Heartburn/Nausea Albuterol Sulfate (Albuterol Sulfate 90 Mcg 8 Gm Inhaler) 2 puff INHALE Q4H PRN PRN Reason: for wheezing Last Admin: 03/07/22 08:20 Dose: 2 puff Albuterol/Ipratropium (Albuterol/Iprat 2.5/0.5mg 3 Ml Ampul.Neb) 3 ml INHALE Q4H PRN PRN Reason: shortness of breath or wheezing Amlodipine Besylate (Amlodipine Besylate 5 Mg Tablet) 5 mg PO DAILY [facility]; Protocol Last Admin: 03/08/22 09:44 Dose: 5 mg Aspirin (Aspirin Enteric Coated 81 Mg Tablet.) 81 mg PO DAILY [facility] Last Admin: 03/08/22 09:44 Dose: 81 mg Ergocalciferol (Ergocalciferol (Vitamin D2) 1,250 Mcg Capsule) 1,250 mcg PO Tu@1000 [facility] Last Admin: 03/02/22 08:36 Dose: 1,250 mcg Fluticasone/Vilanterol (Fluticasone/Vilanterol 100/25 Blst.W.Dev) 1 puff INHALE RDAILY [facility] Last Admin: 03/08/22 09:43 Dose: 1 puff Gabapentin (Gabapentin 300 Mg Capsule) 900 mg PO TID [facility] Last Admin: 03/08/22 14:55 Dose: 900 mg Ibuprofen (Ibuprofen 400 Mg Tablet) 400 mg PO Q6H PRN PRN Reason: pain, moderate Last Admin: 03/08/22 09:44 Dose: 400 mg Lorazepam (Lorazepam 1 Mg Tablet) 1 mg PO DAILY PRN PRN Reason: severe anxiety Last Admin: 03/08/22 15:02 Dose: 1 mg Magnesium Hydroxide (Milk Of Magnesia 30 Ml Oral.Susp) 30 ml PO DAILY PRN PRN Reason: Constipation Methadone HCl (Methadone Hcl 20 Mg/2 Ml Oral.Conc) 130 mg PO DAILY [facility] Last Admin: 03/08/22 09:45 Dose: 130 mg Mirtazapine (Mirtazapine 30 Mg Tablet) 30 mg PO BEDTIME PRN PRN Reason: Sleep Last Admin: 03/07/22 21:09 Dose: 30 mg Nicotine (Nicotine 21 Mg Patch.Td24) 21 mg TRANSDERMA DAILY [facility] Last Admin: 03/08/22 09:44 Dose: 21 mg Nicotine Polacrilex (Nicotine Polacrilex 2 Mg Gum) 4 mg BUCCAL Q2H PRN PRN Reason: Nicotine Cravings Omeprazole (Omeprazole 40 Mg Capsule.Dr) 40 mg PO DAILY@0630 [facility] Last Admin: 03/08/22 09:43 Dose: 40 mg Ondansetron HCl (Ondansetron Odt 4 Mg Tab.Rapdis) 4 mg TRANSLINGU TID PRN PRN Reason: Nausea Last Admin: 03/08/22 12:43 Dose: 4 mg Prazosin HCl (Prazosin Hcl 1 Mg Capsule) 3 mg PO BEDTIME [facility]; Protocol Last Admin: 03/07/22 21:09 Dose: 3 mg Quetiapine Fumarate (Quetiapine Fumarate 25 Mg Tablet) 12.5 mg PO Q4H PRN PRN Reason: anxiety Last Admin: 03/08/22 06:32 Dose: 12.5 mg Quetiapine Fumarate (Quetiapine Fumarate 50 Mg Tablet) 50 mg PO BEDTIME [facility] Last Admin: 03/07/22 21:09 Dose: 50 mg Tizanidine HCl (Tizanidine Hcl 4 Mg Tablet) 2 mg PO Q8H PRN PRN Reason: Headache Last Admin: 03/08/22 06:33 Dose: 2 mg Venlafaxine HCl (Venlafaxine Hcl Er 37.5 Mg Cap.Er.24h) 37.5 mg PO DAILY [facility] Allergies Allergies Allergy/AdvReac Type Severity Reaction Status Date / Time acetaminophen [Vicodin] Allergy Unknown Unknown Verified 09/24/21 15:13 hydrocodone [Vicodin] Allergy Unknown Unknown Verified 09/24/21 15:13 sumatriptan [From IMITREX] Allergy Unknown VOMITING,RA Verified 09/24/21 15:13 SH Assessment & Plan Assessment & Plan (1) MDD (major depressive disorder), recurrent episode, moderate: Status: Acute Code(s): F33.1 - Major depressive disorder, recurrent, moderate (2) Cocaine use disorder, moderate, dependence: Status: Acute Code(s): F14.20 - Cocaine dependence, uncomplicated Plan Ms. Sanon is a 56 year-old woman with hx of MDD, cocaine use disorder, opioid use disorder on MAT who called 911 was brought via EMS reporting increase anxious mood, inability to function due to severe anxiety, asking for higher prescription of ativan. Pt recently discharged from , did not follow up with referrals/appointments. Utox positive for cocaine. Pt minimizes use of cocaine and effects on mood. We discussed risks, benefits and alternative treatment options. discuss risk of respiratory supression given her underlying respiratory conditions (COPD on oxygen, high dose of methadone) higher doses of ativan along with concerns of misuse or abuse as she continues to work on substance use now mostly cocaine. 03/03: continue current medications. aftercare planning. 03/04: increase effexor XR to 75 mg daily as of today. add low-dose seroquel for anxiety. plan to DC ativan. 03/05: continue effexor for now despite c/o nausea which she is attributing to the medication increase. continue seroquel 12.5 PRN anxiety, add seroquel 50 mg QHS for insomnia. no other changes to regimen. 03/06: Continue current regimen and plans. No changes were made today 03/07: Continue current plans and regimen. 03/08: decrease effexor back to 37.5 mg daily. otherwise continue current regimen. planning for weds discharge. seroquel has been helpful for both sleep and anxiety. I spent ___20___ minutes with the patient and/or on the patient floor today, greater than?50% of which was spent counseling/coordinating care. Reason for contiued inpatient stay Substantial Risk for: inability to function and rapid decompensation
[2022-03-08 17:57] LABS: Appearance Urine Clear; Color Urine Yellow; Glucose Urine UA Negative (Negative); Leukocyte Esterase Urine Negative (Negative); Nitrite Urine Negative (Negative); PH 7.5 (5.0-9.0); Specific Gravity - Urine 1.015 (1.005-1.025); Urine Blood Negative (Negative); Urine Ketones Negative (Negative); Urine Protein Negative (Neg-Trace)
--- NOTE | 2022-03-08 18:17 | PC.NURSE ---
Late entry: 1300- Patient reported she is 'not feeling well' denies any specific symptoms, denies sore throat denies any respiratory symptoms - MD aware, no further orders at this time. Later- patient reported some 'burning' w/ urination. UA sent as ordered.
[2022-03-08 20:05] VITALS: BP 160/70; PULSE 75; RESP 16; TEMP 36.4; O2SAT 94
[2022-03-08] MEDS: QUEtiapine Fumarate 50 MG TABLET PO (21:10)
[2022-03-08] MEDS: Prazosin HCL 1 MG CAPSULE 3 MG PO (21:11)
[2022-03-08] MEDS: Magnesium Hydrox/Alum Hydrox 30 ML ORAL.SUSP PO (21:31)
[2022-03-08] MEDS: Mirtazapine 30 MG TABLET PO (21:31)
[2022-03-09] MEDS: Ibuprofen 400 MG TABLET PO ×3 (02:44→20:24)
[2022-03-09 06:00] VITALS: BP 104/63; PULSE 80; RESP 16; TEMP 36.6; O2SAT 95
[2022-03-09] MEDS: Fluticasone/Vilanterol 100/25 BLST.W.DEV 1 PUFF INHALE (08:45)
[2022-03-09] MEDS: Albuterol Sulfate 90 MCG 8 GM INHALER 2 PUFF INHALE (08:45)
[2022-03-09] MEDS: Nicotine 21 MG PATCH.TD24 TRANSDERMA (08:46)
[2022-03-09] MEDS: methADONE HCl 20 MG/2 ML ORAL.CONC 130 MG PO (08:48)
[2022-03-09] MEDS: Gabapentin 300 MG CAPSULE 900 MG PO ×3 (08:50→20:23)
[2022-03-09] MEDS: amLODIPine Besylate 5 MG TABLET PO (08:51)
[2022-03-09] MEDS: Ergocalciferol (Vitamin D2) 1,250 MCG CAPSULE 1250 MCG PO (08:51)
[2022-03-09] MEDS: Venlafaxine HCl ER 37.5 MG CAP.ER.24H PO (08:51)
[2022-03-09] MEDS: Omeprazole 40 MG CAPSULE.DR PO (08:52)
[2022-03-09] MEDS: Aspirin Enteric Coated 81 MG TABLET.DR PO (08:52)
[2022-03-09] MEDS: Ondansetron ODT 4 MG TAB.RAPDIS TRANSLINGU ×3 (08:52→17:57)
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
[2022-03-09] MEDS: LORazepam 1 MG TABLET PO (13:42)
[2022-03-09] MEDS: TiZANidine HCL 4 MG TABLET 2 MG PO (13:54)
[2022-03-09 20:00] VITALS: BP 133/65; PULSE 77; RESP 16; TEMP 36.3; O2SAT 95
[2022-03-09] MEDS: Prazosin HCL 1 MG CAPSULE 3 MG PO (20:22)
[2022-03-09] MEDS: QUEtiapine Fumarate 50 MG TABLET PO (20:23)
[2022-03-09] MEDS: Mirtazapine 30 MG TABLET PO (20:24)
[2022-03-10 06:00] VITALS: BP 150/70; PULSE 85; RESP 18; TEMP 36.7; O2SAT 95
[2022-03-10] MEDS: Omeprazole 40 MG CAPSULE.DR PO (06:45)
[2022-03-10] MEDS: Magnesium Hydrox/Alum Hydrox 30 ML ORAL.SUSP PO (06:45)
[2022-03-10] MEDS: Gabapentin 300 MG CAPSULE 900 MG PO (09:17)
[2022-03-10] MEDS: Venlafaxine HCl ER 37.5 MG CAP.ER.24H PO (09:18)
[2022-03-10] MEDS: Aspirin Enteric Coated 81 MG TABLET.DR PO (09:18)
[2022-03-10] MEDS: amLODIPine Besylate 5 MG TABLET PO (09:18)
[2022-03-10] MEDS: Fluticasone/Vilanterol 100/25 BLST.W.DEV 1 PUFF INHALE (09:19)
[2022-03-10] MEDS: Albuterol Sulfate 90 MCG 8 GM INHALER 2 PUFF INHALE (09:20)
[2022-03-10] MEDS: methADONE HCl 20 MG/2 ML ORAL.CONC 130 MG PO (09:21)
[2022-03-10] MEDS: Nicotine 21 MG PATCH.TD24 TRANSDERMA (09:35)
[2022-03-10] MEDS: Ibuprofen 400 MG TABLET PO (09:49)
[2022-03-10] MEDS: Ondansetron ODT 4 MG TAB.RAPDIS TRANSLINGU (11:06)
== END 2022-03-10 12:05 | disposition home or self-care (01) | DRG 751 ==
LOC: HO.ED 16:36 → HO.PADLT16 03-02 15:43
PROVIDERS: Admitting Provider Psychiatry & Neurology Psychiatry; Emergency Provider Emergency Medicine; Visit Provider Psychiatry & Neurology Psychiatry
DX: F33.1 Major depressive disorder, recurrent, moderate (principal); R45.851 Suicidal ideations; Z99.81 Dependence on supplemental oxygen; E11.9 Type 2 diabetes mellitus without complications; J44.9 Chronic obstructive pulmonary disease, unspecified; F11.20 Opioid dependence, uncomplicated; F17.210 Nicotine dependence, cigarettes, uncomplicated; F14.20 Cocaine dependence, uncomplicated; Z88.5 Allergy status to narcotic agent; Z88.6 Allergy status to analgesic agent; Z79.82 Long term (current) use of aspirin; Z79.51 Long term (current) use of inhaled steroids; Z79.899 Other long term (current) drug therapy
CPT/HCPCS: 36415; 71045; 80048; 80053; 80061; 80076; 80143; 80179; 80307; 81003; 82077; 82607; 82746; 83036; 83735; 84439; 84443; 84484; 85025; 85610; 87635; 93005; 99285

== ENCOUNTER 2022-06-29 11:39 | Inpatient (IN) | payer OTHER, SELFPAY ==
--- NOTE | ~2022-06-29 | US_ITS ---
EXAMINATION: US ABDOMEN LIMITED CLINICAL INFORMATION: Upper abdominal pain. Elevated LFTs. COMPARISON: CT scan dated December 31, 2019. TECHNIQUE: Real-time imaging of the right upper quadrant abdominal viscera. FINDINGS: PANCREAS: Head and body appear unremarkable. Tail not visualized. LIVER: Measures 22.0 cm in sagittal dimension. The liver contour is normal. Parenchymal echogenicity is normal. No focal hepatic lesion. There is no intrahepatic biliary duct dilatation seen. GALLBLADDER: Distended, measuring approximately 15 cm in length by 4 cm in diameter. No evidence of stones, sludge, polyps, wall thickening or pericholecystic fluid. Technologist reports positive sonographic Khalil's sign. COMMON BILE DUCT: Normal in caliber measuring 0.5 cm in diameter. RIGHT KIDNEY: No hydronephrosis. No renal calculi or focal parenchymal lesions. The kidney measures 13.5 cm in maximum dimension. FREE FLUID: None. US/US abdomen limited IMPRESSION: Distended gallbladder. No evidence of stones, sludge, polyps, wall thickening or pericholecystic fluid. Technologist reports positive sonographic Khalil's sign. Mild hepatomegaly.
--- NOTE | ~2022-06-29 | XR_ITS ---
EXAMINATION: XR CHEST CLINICAL INFORMATION: Cough. COMPARISON: March 01, 2022. TECHNIQUE: Portable AP view of the chest was obtained. XR/XR chest 1V FINDINGS/IMPRESSION: The study is quite limited by portable technique and low lung volumes. Patchy bibasilar densities raise suspicion for infiltrates and/or atelectasis, left worse than right, probably worse compared with March 01, 2022. No effusion or pneumothorax is seen. The cardiac silhouette is suboptimally evaluated. The mediastinum, diaphragm, bones, and soft tissues appear unremarkable.
--- NOTE | ~2022-06-29 | CT_ITS ---
EXAMINATION: CT CHEST WITHOUT CONTRAST CLINICAL INFORMATION: Multifocal opacities COMPARISON: Chest radiograph earlier today TECHNIQUE: Multidetector volumetric CT imaging of the chest was done. Axial MIP volume rendering provided. Sagittal and coronal reformatted images were obtained. This CT examination was performed using dose optimization techniques as appropriate, variously including the following: *Automated exposure control *Adjustment of mA and/or kV according to patient size (this includes techniques or standardized protocols for targeted exams where dose is matched to indication/reason for exam; i.e. extremities or head) *Use of iterative reconstruction technique DLP: 312 mGy-cm FINDINGS: LUNGS: Atelectasis/scarring is present in the left lower lobe as well as lingula some minimal atelectasis is present at the right lung base. No suspicious lung masses or gross consolidation. Tiny punctate granuloma in the right lateral costophrenic sulcus. MEDIASTINUM: Heart size normal. Extensive calcifications seen at the origin of the left subclavian with probable at least 50% stenosis. Calcification seen in the aortic leaflets. No mediastinal or hilar lymphadenopathy. CORONARY ARTERY CALCIFICATION: Moderate present PLEURA: There is no pleural effusion. No pleural mass or thickening. AXILLA: No lymphadenopathy. UPPER ABDOMEN: Calcifications in the left kidney may represent vascular calcifications. Large left adrenal mass measuring 2.6 x 2.6 x 3.3 cm which measures fat density is consistent with a benign adenoma. Liver attenuation is decreased consistent with hepatic steatosis. OSSEOUS STRUCTURES: Unremarkable. CT/CT chest wo IV con IMPRESSION: 1. No suspicious lung masses are seen. Left basilar and lingular atelectasis. 2. Incidental note made of hepatic steatosis, benign left adrenal adenoma and probable left subclavian artery stenosis. Fleischner guidelines were followed.
--- NOTE | 2022-06-29 11:57 | ECG_ITS ---
Test Reason : chest pain Blood Pressure : / mmHG Vent. Rate : 100 BPM Atrial Rate : 100 BPM P-R Int : 144 ms QRS Dur : 092 ms QT Int : 350 ms P-R-T Axes : 064 091 030 degrees QTc Int : 451 ms Normal sinus rhythm Possible Left atrial enlargement Rightward axis Incomplete right bundle branch block Borderline ECG When compared with ECG of 01-MAR-2022 16:47, Incomplete right bundle branch block has replaced Right bundle branch block Referred By: Generic ED Physician Electronically Signed By:Wong Hogan
[2022-06-29 12:00] VITALS: BP 126/70; BP 146/91; PULSE 105; PULSE 115; RESP 16; O2SAT 94; O2SAT 96; BMI 34.0
[2022-06-29 12:28] LABS: MANUAL DIFF FLAG NO
[2022-06-29 12:31] LABS: Appearance Urine Cloudy; Color Urine Dark Yellow; Glucose Urine UA Negative (Negative); Leukocyte Esterase Urine Small (1+) (Negative); Nitrite Urine Negative (Negative); Specific Gravity - Urine 1.025 (1.005-1.025); UMIC TRIGGER UACC YES; Urine Blood Large (3+) (Negative); Urine Ketones 15 mg/dL (Negative); Urine Protein 100 (2+) mg/dL (Neg-Trace)
[2022-06-29 12:32] LABS: Basophils Percent Auto 0.6 % (0-2); Eosinophils Absolute Auto 0.1 X10*3/uL (0.0-0.4); Eosinophils Percent Auto 1.5 % (0-4); Hematocrit 49.1 % (37.0-47.0); Hemoglobin 15.8 g/dl (12.0-16.0); Imm Gran Abs Auto 0.01 X10*3/uL (0.00-0.03); Imm Gran Pct Auto 0.2 % (0.0-0.4); Lymphocytes Absolute Auto 0.8 X10*3/uL (1.2-4.9); Lymphocytes Percent Auto 12.5 % (20-40); Mean Corpuscular HGB Conc 32.2 g/dl (31.0-35.0); Mean Corpuscular Hemoglobin 29.3 pg (27.0-33.0); Mean Corpuscular Volume 90.9 fL (80.0-98.0); Mean Platelet Volume 11.3 fL (9.4-12.3); Monocytes Absolute Auto 0.3 X10*3/uL (0.1-1.2); Monocytes Percent Auto 4.3 % (2-11); Neutrophils Absolute Auto 5.3 x10*3/uL (2.0-8.3); Neutrophils Percent Auto 80.9 % (45-73); Platelet Count 119 X10*3/uL (160-400); Red Cell Distribution Width 15.7 % (11.0-16.0); White Blood Count 6.5 X10*3/uL (4.8-10.8)
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
[2022-06-29 12:38] LABS: Bacteria Urine None Seen (None Seen); Hyaline Casts Urine 0-2 /LPF (0-2); RBC Urine >20 /HPF (0-2); UACC Culture Trigger YES; WBC Urine 0-5 /HPF (0-5)
[2022-06-29] MEDS: Lactated Ringers 500 ML 999 ML IV (12:40)
[2022-06-29] MEDS: LORazepam 2 MG/ML VIAL IVPUSH (12:43)
[2022-06-29] MEDS: ondansetron HCL 4 MG/2 ML VIAL IVPUSH ×2 (12:43→21:20)
[2022-06-29 12:48] LABS: Anion Gap 15 (12-20); Blood Urea Nitrogen 15 mg/dL (9-16); Calcium 8.9 mg/dL (8.4-10.2); Carbon Dioxide 27 mmol/L (22-29); Chloride 99 mmol/L (96-108); Creatinine Clr Calc Pharmacy 75.8; Estimated Glomerular Filt Rate > 60; Glucose Random 206 mg/dL (60-115); Potassium 4.1 mmol/L (3.3-5.1); Sodium 137 mmol/L (135-145)
[2022-06-29 12:51] LABS: IDNOW Serial# 9DB6401D; Influenza A Negative (Negative); Influenza B2 Negative (Negative)
[2022-06-29 12:56] LABS: Troponin-I High Sensitivity < 3.5 ng/L (<3.5-17.0)
[2022-06-29 13:05] LABS: Amphetamine Screen Urine Not Detected (Not Detect); Barbiturates, Urine Not Detected (Not Detect); Benzodiazepines Screen Urine Not Detected (Not Detect); Cannabinoid Screen Urine POSITIVE (Not Detect); Cocaine Screen Urine POSITIVE (Not Detect); Fentanyl, urine POSITIVE (Not Detect); Opiate Screen Urine Not Detected (Not Detect); Phencyclidine Screen Urine Not Detected (Not Detect)
[2022-06-29 13:08] LABS: Alanine Aminotransferase 594 U/L (0-31); Alkaline Phosphatase 153 U/L (39-117); Aspartate Amino Transferase 652 U/L (5-31); Bilirubin Direct 1.4 mg/dL (0.0-0.5); Bilirubin Total 2.6 mg/dL (0.0-1.0); Ethanol < 10 mg/dL; Lipase 9 U/L (8-78); Magnesium 1.4 mg/dL (1.6-2.6); Total Protein 7.7 g/dL (6.5-8.0)
[2022-06-29] MEDS: Albuterol/Iprat 2.5/0.5MG 3 ML AMPUL.NEB INHALE (13:36)
[2022-06-29 13:38] VITALS: PULSE 94; RESP 16; O2SAT 95
[2022-06-29] MEDS: Magnesium Sulfate/H2O 2 GM/50 ML PIGGYBACK IV (14:07)
[2022-06-29 14:10] VITALS: BP 146/86; PULSE 97; RESP 16; O2SAT 92
[2022-06-29 15:13] VITALS: BP 151/69; PULSE 99
[2022-06-29 15:22] LABS: Lactic Acid 0.9 mmol/L (0.5-2.0)
[2022-06-29] MEDS: cefTRIAXone sodium 1 GM in 0.9 % Sodium Chloride 50 ML IV (16:12)
--- NOTE | 2022-06-29 16:12 | PHA.MEDREC ---
Pharmacy Consult ? Medication Reconciliation Pharmacy has completed the medication reconciliation.
[2022-06-29 16:15] VITALS: BP 137/76; PULSE 93; RESP 13
[2022-06-29 16:39] VITALS: O2SAT 88
[2022-06-29 16:44] LABS: Acetaminophen LAB < 17 mcg/mL (<30)
[2022-06-29] MEDS: Doxycycline Hyclate 100 MG in 0.9 % Sodium Chloride 250 ML 166.67 MG IV (16:46)
[2022-06-29] MEDS: LORazepam 1 MG TABLET 2 MG PO (16:56)
[2022-06-29] MEDS: Thiamine HCL 200 MG in 0.9 % Sodium Chloride 100 ML 204 MG IV (17:38)
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
[2022-06-29] MEDS: 0.9 % Sodium Chloride 1,000 ML 100 ML IVCONT (19:07)
[2022-06-29 19:14] LABS: Partial Thromboplastin Time 32.8 SEC (26.0-36.4)
[2022-06-29 20:07] LABS: Acetaminophen LAB < 17 mcg/mL (<30)
[2022-06-29] MEDS: Gabapentin 300 MG CAPSULE 900 MG PO (21:20)
[2022-06-29] MEDS: Enoxaparin Sodium 40 MG/0.4 ML SYRINGE SUBCUT (21:21)
[2022-06-29] MEDS: Prazosin HCL 1 MG CAPSULE 3 MG PO (21:21)
[2022-06-29] MEDS: Mirtazapine 30 MG TABLET PO (21:21)
[2022-06-30] VITALS (8 sets, daily range): BP systolic 111–180; BP diastolic 56–76; PULSE 80–90; RESP 11–20; TEMP 36.1–37.1; O2SAT 91–96
[2022-06-30] MEDS: 0.9 % Sodium Chloride Flush 3 ML SYRINGE IVFLUSH ×2 (02:36→08:45)
[2022-06-30 04:32] LABS: HBS Num1 2.93 mIU/mL (0-7.99); HBc Num1 0.21 S/CO (0.00-0.79); HBsAGNum1 1.78 S/CO (0.00-0.99); HIV Num 1 3.23 S/CO (0.00-0.99); Hepatitis B Core Antibody Nonreactive (Nonreactive); ~HepC Num1 0.13 S/CO (0.00-0.79); ~Hepatitis B Surface Antibody NONREACTIVE (Nonreactive); ~Hepatitis C Antibody Nonreactive (Nonreactive)
[2022-06-30] MEDS: LORazepam 1 MG TABLET PO (04:41)
[2022-06-30] MEDS: Albuterol Sulfate (0.083%) 2.5 MG/3 ML VIAL.NEB INHALE (04:49)
[2022-06-30] MEDS: 0.9 % Sodium Chloride 1,000 ML 100 ML IVCONT ×2 (05:28→16:01)
[2022-06-30] MEDS: Omeprazole 40 MG CAPSULE.DR PO (05:40)
[2022-06-30] MEDS: Doxycycline Hyclate 100 MG in 0.9 % Sodium Chloride 250 ML 166.67 MG IV ×2 (05:41→19:27)
--- NOTE | 2022-06-30 05:58 | PC.NURSE ---
Methadone dose verifid with [facility] in [place] at [phone], spoke to ANTOINE Vela patient takes Methadone 135 mg PO daily.
[2022-06-30 06:06] LABS: MANUAL DIFF FLAG NO
[2022-06-30 06:11] LABS: HBsAGNum2 Nonreactive; HBsAGNum3 Nonreactive; HIV AB/AG Nonreactive (Nonreactive); HIV Num 2 0.07 S/CO; HIV Num 3 0.06 S/CO; Hepatitis B Surface Antigen NEGATIVE (Negative)
[2022-06-30 06:14] LABS: Eosinophils Absolute Auto 0.1 X10*3/uL (0.0-0.4); Eosinophils Percent Auto 3.8 % (0-4); Hematocrit 42.7 % (37.0-47.0); Hemoglobin 13.2 g/dl (12.0-16.0); Imm Gran Abs Auto 0.01 X10*3/uL (0.00-0.03); Imm Gran Pct Auto 0.3 % (0.0-0.4); Lymphocytes Absolute Auto 1.1 X10*3/uL (1.2-4.9); Lymphocytes Percent Auto 36.1 % (20-40); Mean Corpuscular HGB Conc 30.9 g/dl (31.0-35.0); Mean Corpuscular Hemoglobin 28.9 pg (27.0-33.0); Mean Corpuscular Volume 93.4 fL (80.0-98.0); Mean Platelet Volume 10.2 fL (9.4-12.3); Monocytes Absolute Auto 0.3 X10*3/uL (0.1-1.2); Neutrophils Absolute Auto 1.6 x10*3/uL (2.0-8.3); Neutrophils Percent Auto 50.8 % (45-73); Platelet Count 98 X10*3/uL (160-400); Red Blood Count 4.57 X10*6/uL (4.20-5.50); Red Cell Distribution Width 15.8 % (11.0-16.0); White Blood Count 3.1 X10*3/uL (4.8-10.8)
[2022-06-30 06:34] LABS: Alanine Aminotransferase 320 U/L (0-31); Albumin Level 3.1 g/dL (3.5-5.0); Alkaline Phosphatase 126 U/L (39-117); Anion Gap 12 (12-20); Aspartate Amino Transferase 198 U/L (5-31); Bilirubin Total 1.1 mg/dL (0.0-1.0); Blood Urea Nitrogen 16 mg/dL (9-16); Calcium 8.3 mg/dL (8.4-10.2); Carbon Dioxide 27 mmol/L (22-29); Chloride 105 mmol/L (96-108); Creatinine Clr Calc Pharmacy 64.9; Estimated Glomerular Filt Rate > 60; Glucose Random 346 mg/dL (60-115); Magnesium 1.6 mg/dL (1.6-2.6); Potassium 4.2 mmol/L (3.3-5.1); Sodium 140 mmol/L (135-145)
--- NOTE | 2022-06-30 06:46 | PM.GICN ---
History of Present Illness Data of Consult Service Date: 06/30/22 Requesting physician: Salina Beasley Primary Care Provider: Jair Lemus MD [facility] Reason for consult: acute hepatitis 56 year old female with history of htn, COPD on 2L supplemental O2 prn, opioid depedence on methadone, polysubstance abuse, GERD, aortic stenosis, history alcohol abuse, controlled type 2 diabetes, and anxiety who I am seeing for assessment for acute hepatitis. Patient initially presented due to nausea, non bloody emesis, chest discomfort and chills with anxiety. as well as whole body aches and pains. She also noted non productive cough as well as dysuria and hematuria for several d ays. She continues to use cocaine and drinks alcohol on weekly basis. She also smokes tobacco. Imaging revealed possible infiltrates on cxr but susequent CT chest with atelectasis only and coronary calcifications labs with elevated LFTs with AST 652, ALT 594, alkaline phosphatase 153, total bilirubin 2.6, direct bilirubin 1.4 which have improved on repeat today Urine drug screen negative for benzos but positive for fentanyl, cocaine, and marijuana. UA with 3+ blood, 1+ leukocytes, negative nitrites, 2+ protein. hep ,b,c screens were neg, hiv neg Review of Systems Review of Systems: Constitutional : No Weight loss, No Fever, + Chills ENT/Mouth : No sore throat, No Rhinorrhea Eyes: No Eye Pain, No Swelling Cardiovascular : pos Chest Pain, no SOB, no Dyspnea on Exertion, No Orthopnea, No Edema, No Palpitations Respiratory : pos Cough, No Sputum Gastrointestinal : pos Nausea, pos Vomiting, pos Diarrhea, No abdominal Pain, No Hematochezia, No Melena Genitourinary : No Dysuria, No Urinary Frequency Musculoskeletal : No joint pain, pos Myalgias, No Joint Swelling Skin : No Skin Lesions, No rash Neuro : pos Weakness, No Numbness, No Dizziness, No Headache Psych : pos Anxiety/Panic, No Depression Heme/Lymph: No Bruising, No Lymphadenopathy Endocrine : No Polyuria, No Polydipsia All other systems reviewed and are negative [facility] Past Medical History Medical History (Updated 06/30/22 @ 06:55 by Damaris Fuentes MD) Anxiety Anxiety and depression Cirrhosis COPD (chronic obstructive pulmonary disease) Cranial nerve dysfunction Depression Diabetes Hypertension Lightheaded Nephrolithiasis Obesity Polysubstance abuse Splenic vein thrombosis Family History Family History Father No problems noted. Mother Diabetes Surgical History Surgical History H/O wrist surgery Social History Social History Household Members: Children Household Members Other:: Son, Kirby Mcdermott Housing: Apartment Are you a primary critical care specialist to a significant other at home: No Do you presently have visiting nurse or other home services: No Alcohol intake: current Alcohol intake frequency: does not drink Patient Tobacco Use Status: Current everyday Tobacco user Tobacco use type: Cigarette Cigarette Packs Per Day: 0.5 Cigarettes Per Day: 5 Years Smoked: 30+ Smoked in Last 30 Days: Yes e-Cigarette/Vaping Use: Never Used Second Hand Smoke Exposure: Yes Substance Use Type: Crack/Cocaine, Marijuana, Methamphetamine and Opiates Advance Directives: No Advance Directives Information Provided: Yes Patient : No service: No Current occupational status: disabled Sexual orientation: Straight/Heterosexual Gender identity: Female Cognitive needs: Yes Hearing needs: No Vision needs: No Meds Allergies Allergy/AdvReac Type Severity Reaction Status Date / Time acetaminophen [Vicodin] Allergy Unknown Unknown Verified 06/03/22 13:17 hydrocodone [Vicodin] Allergy Unknown Unknown Verified 06/03/22 13:17 sumatriptan [From IMITREX] Allergy Unknown VOMITING,RA Verified 06/03/22 13:17 Active Medications: Current Medications Albuterol Sulfate (Albuterol Sulfate (0.083%) 2.5 Mg/3 Ml Vial.Neb) 2.5 mg INHALE Q3H PRN PRN Reason: Shortness of Breath/Wheezing Last Admin: 06/30/22 04:49 Dose: 2.5 mg Amlodipine Besylate (Amlodipine Besylate 5 Mg Tablet) 5 mg PO DAILY [facility]; Protocol Aspirin (Aspirin Enteric Coated 81 Mg Tablet.Dr) 81 mg PO DAILY [facility] Enoxaparin Sodium (Enoxaparin Sodium 40 Mg/0.4 Ml Syringe) 40 mg SUBCUT Q24H NAYE Last Admin: 06/29/22 21:21 Dose: 40 mg Folic Acid (Folic Acid 1 Mg Tablet) 1 mg PO DAILY [facility] Gabapentin (Gabapentin 300 Mg Capsule) 900 mg PO TID [facility] Last Admin: 06/29/22 21:20 Dose: 900 mg Sodium Chloride (Ns) 1,000 mls @ 100 mls/hr IVCONT .Q10H [facility] Last Admin: 06/30/22 05:28 Dose: 100 mls/hr Ceftriaxone Sodium 1 gm/ (Sodium Chloride) 50 mls @ 100 mls/hr IV Q24H [facility] Stop: 07/03/22 16:29 Doxycycline Hyclate 100 mg/ (Sodium Chloride) 250 mls @ 166.67 mls/hr IV Q12H [facility] Stop: 07/04/22 07:29 Last Admin: 06/30/22 05:41 Dose: 166.67 mls/hr Lorazepam (Lorazepam 1 Mg Tablet) 1 mg PO DAILY PRN PRN Reason: Anxiety Last Admin: 06/30/22 04:41 Dose: 1 mg Mirtazapine (Mirtazapine 30 Mg Tablet) 30 mg PO BEDTIME [facility] Last Admin: 06/29/22 21:21 Dose: 30 mg Omeprazole (Omeprazole 40 Mg Capsule.Dr) 40 mg PO DAILY@0630 [facility] Last Admin: 06/30/22 05:40 Dose: 40 mg Ondansetron HCl (Ondansetron Hcl 4 Mg/2 Ml Vial) 4 mg IVPUSH Q8H PRN PRN Reason: Nausea and Vomiting Last Admin: 06/29/22 21:20 Dose: 4 mg Pharmacy Consult (Consult Rx Perform Med Rec) 1 each MISCELLANE ONCE PRN PRN Reason: Consult order Prazosin HCl (Prazosin Hcl 1 Mg Capsule) 3 mg PO BEDTIME [facility]; Protocol Last Admin: 06/29/22 21:21 Dose: 3 mg Quetiapine Fumarate (Quetiapine Fumarate 25 Mg Tablet) 12.5 mg PO Q4H PRN PRN Reason: anxiety Sodium Chloride (0.9 % Sodium Chloride Flush 3 Ml Syringe) 3 ml IVFLUSH QSHIFT [facility] Last Admin: 06/30/22 02:36 Dose: 3 ml Thiamine HCl (Thiamine Hcl 100 Mg Tablet) 100 mg PO DAILY [facility] Home Medications Medication Instructions Recorded Confirmed Last Taken Type methadone 10 mg/mL oral 135 mg PO DAILY 02/02/22 06/30/22 06/29/22 History concentrate (Methadone Intensol) pulse oximeter 02/03/22 06/03/22 Unknown History lorazepam 1 mg tablet 1 mg PO DAILY PRN Anxiety 06/29/22 06/29/22 Unknown History Physical Exam Vital Signs: Vital Signs: Last Vital Signs Temp 98.5 F 06/30/22 05:41 Pulse 82 06/30/22 05:41 Resp 17 06/30/22 05:41 BP 111/56 L 06/30/22 05:41 Pulse Ox 91 L 06/30/22 05:41 O2 Del Method 06/30/22 05:41 O2 Flow Rate 2 06/30/22 05:41 BMI result Body Mass Index 34.0 EXAM: GENERAL: The patient is relaxed appearing VITAL SIGNS:see workflow HEENT: Nonicteric sclerae, PERRLA, EOMI. Oropharynx clear. Moist mucous membranes. Conjunctivae appear well perfused. No thyroid mass. CHEST: Chest wall is nontender. HEART: Regular rate and rhythm without murmurs. LUNGS: Clear to auscultation bilaterally. ABDOMEN: Soft, positive bowel sounds, nontender, no organomegaly.no flank tenderness SKIN: No rash, no excessive bruising, petechiae, or purpura. NEUROLOGIC: Cranial nerves II-XII intact without motor/sensory deficit. psych; nml affect Results Labs 06/30/22 05:50 06/30/22 05:50 Labs: Short CBC 06/29/22 06/30/22 Range/Units 12:20 05:50 WBC 6.5 3.1 L (4.8-10.8) X10*3/uL Hgb 15.8 D 13.2 (12.0-16.0) g/dl Hct 49.1 H D 42.7 (37.0-47.0) % Plt Count 119 L D 98 L (160-400) X10*3/uL BMP 06/29/22 06/30/22 12:20 05:50 Sodium 137 140 Potassium 4.1 4.2 Chloride 99 105 Carbon Dioxide 27 27 BUN 15 16 Creatinine 0.77 0.90 Calcium 8.9 D 8.3 L D Cardiac Enzymes 06/30/22 Range/Units 05:50 Total Creatine Kinase 45 (26-140) U/L Liver Function 06/29/22 06/29/22 06/30/22 Range/Units 12:35 12:35 05:50 Total Bilirubin 2.6 H Cancelled 1.1 H (0.0-1.0) mg/dL Direct Bilirubin 1.4 H Cancelled (0.0-0.5) mg/dL AST 652 H Cancelled 198 H (5-31) U/L ALT 594 H Cancelled 320 H (0-31) U/L Alkaline Phosphatase 153 H Cancelled 126 H (39-117) U/L Albumin 4.0 Cancelled 3.1 L (3.5-5.0) g/dL Urine 06/29/22 Range/Units 12:20 Urine Color Dark Yellow Urine Appearance Cloudy Urine pH 6.0 (5.0-9.0) Ur Specific [place] 1.025 (1.005-1.025) Urine Protein 100 (2+) H (Neg-Trace) mg/dL Urine Glucose (UA) Negative (Negative) mg/dL Assessment and Plan (1) Cocaine abuse: Status: Acute (2) Abnormal LFTs: Status: Acute Plan 1/ Abn LFT most likely due to cocaine induced liver injury and ischemia, she usu snorts and last dose about 3-5 d ago, also had been drinking at same time. Her other symptoms could be due to UTI and drug withdrawal US with distended GB but no stones. Her INR has been normal which suggests she has v little risk of liver failure. PLAN: 1/ Check Hep A IgM and Hep B IgM, Hep C PCR for completeness 2/ check CK r/o myalagia as cause of LFt eelvation 3/ counseled on drug and alcohol abstinence 4/ B vitamins Time Spent With Patient Time: Total time managing care of this patient today ____ minutes. Procedures Date of Service Date of Service: 06/30/22
--- NOTE | 2022-06-30 07:30 | HO.PM.IMPN ---
Subjective Subjective Date of Service: 06/30/22 Interval History: f/u on COPD exacerbation interval feels better, no sob, LFTS are are trending Physical Exam Vital Signs: Vital Signs: Last Vital Signs Temp 97.9 F 06/30/22 07:16 Pulse 81 06/30/22 07:16 Resp 16 06/30/22 07:16 BP 132/66 06/30/22 07:16 Pulse Ox 95 06/30/22 07:16 O2 Del Method Nasal Cannula 06/30/22 07:16 O2 Flow Rate 3 06/30/22 07:16 BMI result Body Mass Index 34.0 Const: Other: General: AO X 3, no acute distress Resp: CTA bilateral CVS: S1,S2,RRR GI: +BS, NT, no distention Skin: No rash Neuro: motor grossly intact Psych: appropriate affect Objective Data Active Medications Albuterol Sulfate (Albuterol Sulfate (0.083%) 2.5 Mg/3 Ml Vial.Neb) 2.5 mg INHALE Q3H PRN PRN Reason: Shortness of Breath/Wheezing Last Admin: 06/30/22 04:49 Dose: 2.5 mg Documented By: IBRAHIMA Amlodipine Besylate (Amlodipine Besylate 5 Mg Tablet) 5 mg PO DAILY [facility]; Protocol Aspirin (Aspirin Enteric Coated 81 Mg Tablet.) 81 mg PO DAILY [facility] Enoxaparin Sodium (Enoxaparin Sodium 40 Mg/0.4 Ml Syringe) 40 mg SUBCUT Q24H [facility] Last Admin: 06/29/22 21:21 Dose: 40 mg Documented By: MARLENY Folic Acid (Folic Acid 1 Mg Tablet) 1 mg PO DAILY [facility] Gabapentin (Gabapentin 300 Mg Capsule) 900 mg PO TID [facility] Last Admin: 06/29/22 21:20 Dose: 900 mg Documented By: MARLENY Sodium Chloride (Ns) 1,000 mls @ 100 mls/hr IVCONT .Q10H [facility] Last Admin: 06/30/22 05:28 Dose: 100 mls/hr Documented By: CATHY Ceftriaxone Sodium 1 gm/ (Sodium Chloride) 50 mls @ 100 mls/hr IV Q24H [facility] Stop: 07/03/22 16:29 Doxycycline Hyclate 100 mg/ (Sodium Chloride) 250 mls @ 166.67 mls/hr IV Q12H [facility] Stop: 07/04/22 07:29 Last Admin: 06/30/22 05:41 Dose: 166.67 mls/hr Documented By: CATHY Lorazepam (Lorazepam 1 Mg Tablet) 1 mg PO DAILY PRN PRN Reason: Anxiety Last Admin: 06/30/22 04:41 Dose: 1 mg Documented By: CATHY Mirtazapine (Mirtazapine 30 Mg Tablet) 30 mg PO BEDTIME [facility] Last Admin: 06/29/22 21:21 Dose: 30 mg Documented By: MARLENY Omeprazole (Omeprazole 40 Mg Capsule.Dr) 40 mg PO DAILY@0630 [facility] Last Admin: 06/30/22 05:40 Dose: 40 mg Documented By: CATHY Ondansetron HCl (Ondansetron Hcl 4 Mg/2 Ml Vial) 4 mg IVPUSH Q8H PRN PRN Reason: Nausea and Vomiting Last Admin: 06/29/22 21:20 Dose: 4 mg Documented By: MARLENY Pharmacy Consult (Consult Rx Perform Med Rec) 1 each MISCELLANE ONCE PRN PRN Reason: Consult order Prazosin HCl (Prazosin Hcl 1 Mg Capsule) 3 mg PO BEDTIME [facility]; Protocol Last Admin: 06/29/22 21:21 Dose: 3 mg Documented By: MARLENY Quetiapine Fumarate (Quetiapine Fumarate 25 Mg Tablet) 12.5 mg PO Q4H PRN PRN Reason: anxiety Sodium Chloride (0.9 % Sodium Chloride Flush 3 Ml Syringe) 3 ml IVFLUSH QSHIFT [facility] Last Admin: 06/30/22 02:36 Dose: 3 ml Documented By: CATHY Thiamine HCl (Thiamine Hcl 100 Mg Tablet) 100 mg PO DAILY [facility] Labs 06/30/22 05:50 06/30/22 05:50 Labs: Laboratory Results - last 24 hr 06/29/22 06/29/22 06/29/22 12:20 12:20 12:20 MCV 90.9 MCH 29.3 MCHC 32.2 RDW 15.7 Plt Count 119 L D MPV 11.3 Immature Gran % (Auto) 0.2 Neut % (Auto) 80.9 H Lymph % (Auto) 12.5 L [place] % (Auto) 4.3 Eos % (Auto) 1.5 Baso % (Auto) 0.6 Lymph # (Auto) 0.8 L [place] # (Auto) 0.3 Eos # (Auto) 0.1 Baso # (Auto) 0.0 Abs Immat Gran (auto) 0.01 Absolute Neuts (auto) 5.3 Absolute Nucleated RBC 0.000 Nucleated RBC % (auto) 0.0 APTT Anion Gap 15 Estim Creat Clear Calc 75.8 Estimated GFR > 60 Random Glucose 206 H Lactic Acid Calcium 8.9 D Magnesium Total Bilirubin Direct Bilirubin AST ALT Alkaline Phosphatase Total Creatine Kinase Troponin I High Sens < 3.5 Total Protein Albumin Lipase Urine Color Urine Appearance Urine pH Ur Specific [place] Urine Protein Urine Glucose (UA) Urine Ketones Urine Blood Urine Nitrite Ur Leukocyte Esterase Urine RBC Urine WBC Ur Squamous Epith Cells Urine Bacteria Hyaline Casts Urine Opiates Screen Urine Fentanyl Screen Acetaminophen Ur Barbiturates Screen Ur Phencyclidine Scrn Ur Amphetamines Screen U Benzodiazepines Scrn Urine Cocaine Screen U Marijuana (THC) Screen Ethyl Alcohol Hep Bs Antigen Hep Bs Antigen (2) Hep Bs Antibody Hep B Core Total Ab Hepatitis C Ab (EIA) HIV 1&2 Ab/P24 Ag 4thGn Influenza Type A (SHIREEN) Influenza Type B (SHIREEN) Influenza A & B Note 06/29/22 06/29/22 06/29/22 12:20 12:20 12:20 MCV MCH MCHC RDW Plt Count MPV Immature Gran % (Auto) Neut % (Auto) Lymph % (Auto) [place] % (Auto) Eos % (Auto) Baso % (Auto) Lymph # (Auto) [place] # (Auto) Eos # (Auto) Baso # (Auto) Abs Immat Gran (auto) Absolute Neuts (auto) Absolute Nucleated RBC Nucleated RBC % (auto) APTT Anion Gap Estim Creat Clear Calc Estimated GFR Random Glucose Lactic Acid Calcium Magnesium Total Bilirubin Direct Bilirubin AST ALT Alkaline Phosphatase Total Creatine Kinase Troponin I High Sens Total Protein Albumin Lipase Urine Color Dark Yellow Urine Appearance Cloudy Urine pH 6.0 Ur Specific [place] 1.025 Urine Protein 100 (2+) H Urine Glucose (UA) Negative Urine Ketones 15 Urine Blood Large (3+) H Urine Nitrite Negative Ur Leukocyte Esterase Small (1+) H Urine RBC >20 H Urine WBC 0-5 Ur Squamous Epith Cells 11-20 Urine Bacteria None Seen Hyaline Casts 0-2 Urine Opiates Screen Not Detected Urine Fentanyl Screen POSITIVE H Acetaminophen Ur Barbiturates Screen Not Detected Ur Phencyclidine Scrn Not Detected Ur Amphetamines Screen Not Detected U Benzodiazepines Scrn Not Detected Urine Cocaine Screen POSITIVE H U Marijuana (THC) Screen POSITIVE H Ethyl Alcohol Hep Bs Antigen Hep Bs Antigen (2) Hep Bs Antibody Hep B Core Total Ab Hepatitis C Ab (EIA) HIV 1&2 Ab/P24 Ag 4thGn Influenza Type A (SHIREEN) Negative Influenza Type B (SHIREEN) Negative Influenza A & B Note See Note 06/29/22 06/29/22 06/29/22 12:35 12:35 15:08 MCV MCH MCHC RDW Plt Count MPV Immature Gran % (Auto) Neut % (Auto) Lymph % (Auto) [place] % (Auto) Eos % (Auto) Baso % (Auto) Lymph # (Auto) [place] # (Auto) Eos # (Auto) Baso # (Auto) Abs Immat Gran (auto) Absolute Neuts (auto) Absolute Nucleated RBC Nucleated RBC % (auto) APTT Anion Gap Estim Creat Clear Calc Estimated GFR Random Glucose Lactic Acid 0.9 Calcium Magnesium 1.4 L* Total Bilirubin 2.6 H Cancelled Direct Bilirubin 1.4 H Cancelled AST 652 H Cancelled ALT 594 H Cancelled Alkaline Phosphatase 153 H Cancelled Total Creatine Kinase Troponin I High Sens Total Protein 7.7 Cancelled Albumin 4.0 Cancelled Lipase 9 Cancelled Urine Color Urine Appearance Urine pH Ur Specific [place] Urine Protein Urine Glucose (UA) Urine Ketones Urine Blood Urine Nitrite Ur Leukocyte Esterase Urine RBC Urine WBC Ur Squamous Epith Cells Urine Bacteria Hyaline Casts Urine Opiates Screen Urine Fentanyl Screen Acetaminophen < 17 Ur Barbiturates Screen Ur Phencyclidine Scrn Ur Amphetamines Screen U Benzodiazepines Scrn Urine Cocaine Screen U Marijuana (THC) Screen Ethyl Alcohol < 10 Hep Bs Antigen Hep Bs Antigen (2) Hep Bs Antibody Hep B Core Total Ab Hepatitis C Ab (EIA) HIV 1&2 Ab/P24 Ag 4thGn Influenza Type A (SHIREEN) Influenza Type B (SHIREEN) Influenza A & B Note 06/29/22 06/29/22 06/29/22 18:59 18:59 18:59 MCV MCH MCHC RDW Plt Count MPV Immature Gran % (Auto) Neut % (Auto) Lymph % (Auto) [place] % (Auto) Eos % (Auto) Baso % (Auto) Lymph # (Auto) [place] # (Auto) Eos # (Auto) Baso # (Auto) Abs Immat Gran (auto) Absolute Neuts (auto) Absolute Nucleated RBC Nucleated RBC % (auto) APTT 32.8 Anion Gap Estim Creat Clear Calc Estimated GFR Random Glucose Lactic Acid Calcium Magnesium Total Bilirubin Direct Bilirubin AST ALT Alkaline Phosphatase Total Creatine Kinase Troponin I High Sens Total Protein Albumin Lipase Urine Color Urine Appearance Urine pH Ur Specific [place] Urine Protein Urine Glucose (UA) Urine Ketones Urine Blood Urine Nitrite Ur Leukocyte Esterase Urine RBC Urine WBC Ur Squamous Epith Cells Urine Bacteria Hyaline Casts Urine Opiates Screen Urine Fentanyl Screen Acetaminophen < 17 Ur Barbiturates Screen Ur Phencyclidine Scrn Ur Amphetamines Screen U Benzodiazepines Scrn Urine Cocaine Screen U Marijuana (THC) Screen Ethyl Alcohol Hep Bs Antigen Not Reportable Hep Bs Antigen (2) NEGATIVE Hep Bs Antibody NONREACTIVE Hep B Core Total Ab Nonreactive Hepatitis C Ab (EIA) Nonreactive HIV 1&2 Ab/P24 Ag 4thGn Nonreactive Influenza Type A (SHIREEN) Influenza Type B (SHIREEN) Influenza A & B Note 06/30/22 06/30/22 05:50 05:50 MCV 93.4 MCH 28.9 MCHC 30.9 L RDW 15.8 Plt Count 98 L MPV 10.2 Immature Gran % (Auto) 0.3 Neut % (Auto) 50.8 Lymph % (Auto) 36.1 [place] % (Auto) 8.0 Eos % (Auto) 3.8 Baso % (Auto) 1.0 Lymph # (Auto) 1.1 L [place] # (Auto) 0.3 Eos # (Auto) 0.1 Baso # (Auto) 0.0 Abs Immat Gran (auto) 0.01 Absolute Neuts (auto) 1.6 L Absolute Nucleated RBC 0.000 Nucleated RBC % (auto) 0.0 APTT Anion Gap 12 Estim Creat Clear Calc 64.9 Estimated GFR > 60 Random Glucose 346 H Lactic Acid Calcium 8.3 L D Magnesium 1.6 Total Bilirubin 1.1 H Direct Bilirubin AST 198 H ALT 320 H Alkaline Phosphatase 126 H Total Creatine Kinase 45 Troponin I High Sens Total Protein 6.0 L Albumin 3.1 L Lipase Urine Color Urine Appearance Urine pH Ur Specific [place] Urine Protein Urine Glucose (UA) Urine Ketones Urine Blood Urine Nitrite Ur Leukocyte Esterase Urine RBC Urine WBC Ur Squamous Epith Cells Urine Bacteria Hyaline Casts Urine Opiates Screen Urine Fentanyl Screen Acetaminophen Ur Barbiturates Screen Ur Phencyclidine Scrn Ur Amphetamines Screen U Benzodiazepines Scrn Urine Cocaine Screen U Marijuana (THC) Screen Ethyl Alcohol Hep Bs Antigen Hep Bs Antigen (2) Hep Bs Antibody Hep B Core Total Ab Hepatitis C Ab (EIA) HIV 1&2 Ab/P24 Ag 4thGn Influenza Type A (SHIREEN) Influenza Type B (SHIREEN) Influenza A & B Note Assessment and Plan (1) Abnormal LFTs: Status: Acute (2) Cocaine abuse: Status: Acute Plan 56 year old female with history of htn, COPD on 2L supplemental O2 prn, opioid depedence on methadone, polysubstance abuse, GERD, aortic stenosis, cirrhosis, history alcohol abuse, controlled type 2 diabetes, anxiety admitted for possible benzo withdrawal and bibasilar pneumonia. #? Benzo withdrawal, utox negative for benzo -patient reports she is prescribed 2 mg Ativan b.i.d. by PCP.? However reviewed last note from PCP which does not mention this prescription Robertson this present on [place] -given total of 4 mg Ativan in the ED.?Verification at her Pharmacy revealed that she was prescribed a limited supply of 2 mg bid of ativan back last February 2022 and therefore is not truthful about her present claim # acute hepatitis -AST 652, ALT 594, alkaline phosphatase 153, total bilirubin 2.6, direct bilirubin 1.4 -denies IV drug abuse.? Does report history of cirrhosis diagnosed at [facility] with history of alcohol abuse but now only consumes about 1 drink weekly, however liver contour noted to be normal on right upper quadrant, LFTS are significantly down today ? shock liver. -hepatitis-B and C antibodies pending. HIV ab pending -right upper quadrant ultrasound showing gallbladder distension but no cholecystitis or biliary obstruction - Gi consult -continue to trend level -CT show fatty liver # bibasilar pneumonia -CXR showing bilateral basilar opacities with low lung volumes suggestive of possible infiltrates versus atelectasis, no PNA on CT -continue ceftriaxone and doxycycline (initiated 06/29) -IS for low lung volumes- likely also has component of obesity hypoventilation syndrome - Symptomatic management -albuterol prn -Follow cultures #?UTI-- Ceftriaxone as above, culture pending # COPD -without acute exacerbation -continue home inhalers -wean off O2 # polysubstance abuse with opiate dependence -U tox positive for cocaine, fentanyl, marijuana -continue home methadone -addiction med consult # controlled type 2 diabetes -POC glucose -diabetic diet -Humalog on sliding scale #Depression/anxiety -continue home meds DVT prophylaxis-Lovenox need for inpatient; management of acute hepatitis, hypoxia ? PNA on iv Abx Time Spent With Patient Time: Total time managing care of this patient today ____ minutes. Quality Stroke Does the patient have a stroke diagnosis?: No VTE Prior VTE?: No VTE Risk Level:: Medical - moderate - high VTE Device Contraindication: Treatment Not Indicated VTE Drug Contraindication: N/A - Med Ordered
--- NOTE | 2022-06-30 07:40 | PC.NURSE ---
pt is a/o x 4 no sob/charlie noted lungs - diminished. 02 sat 98% on 3.5L/m via n/c, 02 decreased to3L/m via n/c (97%) speaks in full sentences. heart sounds - regular. abd obese, soft and non-tender, distended. pt is requesting a nicotine patches smokes 1/2 ppd. pt is aware of plan of care no edema noted.
--- NOTE | 2022-06-30 07:52 | HE.PHANOTE ---
Methadone verification received. Patient gets 135 mg from [facility] in [place]. Last dose was not provided, dose confirmed with Mirian at the clinic.
[2022-06-30] MEDS: amLODIPine Besylate 5 MG TABLET PO (08:40)
[2022-06-30] MEDS: Folic Acid 1 MG TABLET PO (08:40)
[2022-06-30] MEDS: Gabapentin 300 MG CAPSULE 900 MG PO ×3 (08:41→20:09)
[2022-06-30] MEDS: Thiamine HCL 100 MG TABLET PO (08:41)
[2022-06-30] MEDS: Aspirin Enteric Coated 81 MG TABLET.DR PO (08:45)
[2022-06-30] MEDS: Nicotine 14 MG PATCH.TD24 TRANSDERMA (09:11)
[2022-06-30] MEDS: methADONE HCl 20 MG/2 ML ORAL.CONC 135 MG PO (09:38)
--- NOTE | 2022-06-30 10:25 | MHC.RECOVRN ---
Met with pt in ED7 after consult placed to Addiction Medicine for substance use. Pt with RN, receiving morning medications. Sitting in bed, awake, alert, easily engages in conversation. Does not appear to be in withdrawal or uncomfortable. Pt reports last receiving methadone from [facility] on 06/29/22. Pt reports last substance use was 5 days ago, cocaine, [place], $40. Pt reports using cocaine 3-4 times monthly. Will return at a later time to continue JENNA discussion.
[2022-06-30] MEDS: QUEtiapine Fumarate 25 MG TABLET 12.5 MG PO ×3 (11:14→20:09)
--- NOTE | 2022-06-30 11:20 | PC.NURSE ---
pt c/o anxiety due to iv pump beeping, pt requested pain med. med x 1 with seroquel 12.5mg po.
[2022-06-30] MEDS: ondansetron HCL 4 MG/2 ML VIAL IVPUSH (14:09)
--- NOTE | 2022-06-30 14:53 | P.CDIC_ITS ---
CDI Concurrent Query Documentation Clarification: PHYSICIAN'S DOCUMENTATION REQUEST Date of Query: 06/30/22 1457 Patient Name: Keturah Sanon Admit Date: 06/29/22 Dear Doctor, A review of the medical record indicates additional documentation may be needed. Please review below and update the documentation accordingly. Clinical Indicators: Is there a diagnosis that correlates with the findings below:? Risk Factors/Clinical Indicators/Treatments POA/TREAT/RESOLVED/RULE OUT Labs on 06/30: WBC - 3.1 Plt - 98 Absolute Neuts - 1.6 Other indicators: -Polysubstance abuse & alcohol abuse pre sent -Benzodiazepine withdrawal Based on the above, could you clarify in the Progress Notes the appropriate d iagnosis, if significant, that supports the above abnormalities and additional evaluation, monitoring, and/or treatment rendered: * Drug-induced pancytopenia * Other (please specify) * Unable to determine Use of terms such as suspected, likely, concern for, or probable (associated with a specific diagnosis that is being evaluated, monitored, or treated as if it exists) are acceptable and can be coded in the inpatient setting, when documented at the time of discharge. Thank you, Shana Harrison MS, RN, CCRN Extension: [phone] Please use your independent medical judgment in providing your response. THIS QUERY IS PART OF THE PERMANENT MEDICAL RECORD Provider Response: Other Other Diagnosis: Unspecified thrombocytoepenia
--- NOTE | 2022-06-30 15:04 | P.CDIC_ITS ---
CDI Concurrent Query Documentation Clarification: PHYSICIAN'S DOCUMENTATION REQUEST Date of Query: 06/30/22 1504 Patient Name: Keturah Sanon Admit Date: 06/29/22 Dear Doctor, A review of the medical record indicates additional documentation may be needed. Please review below and update the documentation accordingly. Clinical Indicators: A diagnosis of COPD was documented but lacks subsequent documentation. Please confirm/rule out COPD exacerbation based on the correlated findings below: Risk Factors/Clinical Indicators/Treatments POA/TREAT/RESOLVED/RULE OUT Per provider progress note on 06/30: f/u on COPD exacerbation. COPD -without acute exacerbation Other indicators: -increased O2 requirements -Patient treated for hypoxia -Patient requiring nebulizer treatments Clarify which of the following accurately represents the patient's respiratory status: * COPD exacerbation * COPD - stable chronic disease * Other (please specify) * Unable to determine Use of terms such as suspected, likely, concern for, or probable (associated with a specific diagnosis that is being evaluated, monitored, or treated as if it exists) are acceptable and can be coded in the inpatient setting, when documented at the time of discharge. Thank you, Shana HarrisonMS, RN, CCRN Extension: [phone] Please use your independent medical judgment in providing your response. THIS QUERY IS PART OF THE PERMANENT MEDICAL RECORD Provider Response: Other Other Diagnosis: no exacerbation of copd
--- NOTE | 2022-06-30 15:24 | PC.NURSE ---
Addendum entered by Roxanne Fonseca RN 06/30/22 18:38: report given to YONI Haque Addendum entered by Roxanne Fonseca RN 06/30/22 15:52: pt is alert and oriented resting in bed no signs of acute distress notice breathing equally unlabored pt on continuos cardiac monitoring close monitoring maintained Original Note: report received from YONI Fulton
[2022-06-30] MEDS: cefTRIAXone sodium 1 GM in 0.9 % Sodium Chloride 50 ML IV (16:02)
[2022-06-30 16:25] LABS: COVID-19 Test Negative (Negative); IDNOW Serial# 9DB6401D
--- NOTE | 2022-06-30 17:39 | MHC.CM.PN ---
Addendum entered by Rose Rojo 06/30/22 17:48: Pt states she lives in her son's apartment and they have problems with the landlord. States she needs to find another place to live, but is currently living with her son. Original Note: CM met with admitted patient with bed assignment pending. No need for IMM. A&Ox4. Lives with son, Kirby in his apartment. Has home oxygen at 2L prn from [facility] [place]. Has acane. Has [employer] services 21 hours/week from [facility]. Has PT1 for transportation to [facility] in [place] for Methadone. Takes 135 mg methadone daily. Pt states she has transportation difficulties with doctor appointments and is not on a bus line. States her weekend caregiver at [facility] is working on transportation concerns. Pfizer x2. No booster. Pt has multiple medical concerns, mental health concerns and poly-substance abuse. Seen by steerer. D/C plan: Home with continued services. Pt is only requesting help with transportation. Pt does not have transportation home. Will need transport. CM will follow for discharge needs.
[2022-06-30] MEDS: Enoxaparin Sodium 40 MG/0.4 ML SYRINGE SUBCUT (19:28)
[2022-06-30] MEDS: Mirtazapine 30 MG TABLET PO (20:10)
[2022-06-30] MEDS: Prazosin HCL 1 MG CAPSULE 3 MG PO (20:10)
[2022-06-30] MEDS: hydrOXYzine HCL 25 MG TABLET PO (20:10)
[2022-06-30] MEDS: cloNIDine HCL 0.1 MG TABLET PO (20:10)
[2022-07-01 04:00] VITALS: BP 158/72; PULSE 79; RESP 18; TEMP 36.5; O2SAT 95
[2022-07-01] MEDS: Omeprazole 40 MG CAPSULE.DR PO (04:48)
[2022-07-01] MEDS: QUEtiapine Fumarate 25 MG TABLET 12.5 MG PO ×2 (04:48→10:18)
[2022-07-01] MEDS: hydrOXYzine HCL 25 MG TABLET PO (04:48)
[2022-07-01] MEDS: 0.9 % Sodium Chloride Flush 3 ML SYRINGE IVFLUSH ×2 (04:49→07:28)
[2022-07-01] MEDS: 0.9 % Sodium Chloride 1,000 ML 100 ML IVCONT ×2 (04:49→07:34)
[2022-07-01] MEDS: Doxycycline Hyclate 100 MG in 0.9 % Sodium Chloride 250 ML 166 MG IV (05:56)
[2022-07-01 07:27] VITALS: BP 153/73; PULSE 75; RESP 16; TEMP 36.4; O2SAT 95
[2022-07-01] MEDS: Aspirin Enteric Coated 81 MG TABLET.DR PO (07:27)
[2022-07-01] MEDS: amLODIPine Besylate 5 MG TABLET PO (07:27)
[2022-07-01] MEDS: Folic Acid 1 MG TABLET PO (07:27)
[2022-07-01] MEDS: Thiamine HCL 100 MG TABLET PO (07:27)
[2022-07-01] MEDS: Gabapentin 300 MG CAPSULE 900 MG PO (07:27)
[2022-07-01] MEDS: methADONE HCl 20 MG/2 ML ORAL.CONC 135 MG PO (07:28)
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
--- NOTE | 2022-07-01 09:52 | MHC.CM.PN ---
Addendum entered by Charisse Licea 07/01/22 10:39: CM MET WITH PT AT HER REQUEST SHE REPORTS SHE WAS HOPING TO STAY ANOTHER DAY SHE DOES NOT FEEL LIKE HERSELF SHE REPORTS SHE IS DIZZY BUT ADMITS SHE IS EXPERIENCING ANXIETY SHE REPORTS SHE WAS HOPING THE HOSPITALIST WOULD WRITE FOR AN ANXIETY MED CM EXPLAINED HE WOULD BE ASKED HOWEVER MAY NOT DO SO HE IS NOT A PSYCH PROVIDER SHE REPORTS SHE WAS CONNECTED WITH NEW PSYCH PROVIDERS AT LOSING HER LAST ONES SHE SAYS HER PREVIOUS PROVIDER WAS PRESCRIBING [facility] BUT SHE MISSED AN APPT SO THEY DISCHARGED HER SHE SAYS SHE HAS ONE MORE THERAPY APPT BEFORE HER NEW AGENCY WILL CONNECT HER WITH A MED PROVIDER PT ALSO REPORTS SHE DOES NOT HAVE A RIDE OR ANY WAY TO GET HER MEDS FROM THE PHARMACY CM EXPLAINED TRANSPORT WOULD BE ARRANGED HOWEVER THERE MAY NOT BE AN OPTION FOR HER TO GO TO THE PHARMACY PT LATER TELLS T/W HER DAUGHTER WILL PROVIDE TRANSPORT. CM SPOKE TO MD WHO DOES NOT FEEL COMFORTABLE PRESCRIBING ANXIETY MEDS OF NOTE: PT ALSO REPORTS SHE HAS SEROQUEL FOR ANXIETY RECENTLY PRESCRIBED DURING AN INPT ADMISSION PT PROVIDED WITH CYDNEY MOSHER SHE SAYS HERS WERE LOST Original Note: PT TO CO HOME TODAY WITH NO SERVICES PT TO ARRANGE TRANSPORTATION
[2022-07-01 10:37] LABS: Alanine Aminotransferase 178 U/L (0-31); Albumin Level 3.2 g/dL (3.5-5.0); Alkaline Phosphatase 104 U/L (39-117); Aspartate Amino Transferase 53 U/L (5-31); Bilirubin Direct 0.2 mg/dL (0.0-0.5); Bilirubin Total 0.5 mg/dL (0.0-1.0)
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
== END 2022-07-01 12:42 | disposition home or self-care (01) | DRG 139 ==
LOC: HO.ED 16:15 → HO.EDOVER 17:56 → HO.S3 06-30 18:09
PROVIDERS: Internal Medicine Gastroenterology; Admitting Provider Physician Assistant; Emergency Provider Emergency Medicine; PCP Internal Medicine; Visit Provider Internal Medicine
DX: J18.9 Pneumonia, unspecified organism (principal); D69.6 Thrombocytopenia, unspecified; K74.60 Unspecified cirrhosis of liver; J44.0 Chronic obstructive pulmonary disease with (acute) lower respiratory infection; K76.0 Fatty (change of) liver, not elsewhere classified; Z99.81 Dependence on supplemental oxygen; E66.2 Morbid (severe) obesity with alveolar hypoventilation; F41.8 Other specified anxiety disorders; F32.A Depression, unspecified; F17.210 Nicotine dependence, cigarettes, uncomplicated; F11.20 Opioid dependence, uncomplicated; E11.9 Type 2 diabetes mellitus without complications; F32.9 Major depressive disorder, single episode, unspecified; F10.11 Alcohol abuse, in remission; N39.0 Urinary tract infection, site not specified; F43.10 Post-traumatic stress disorder, unspecified; Z68.34 Body mass index [BMI] 34.0-34.9, adult; F14.10 Cocaine abuse, uncomplicated; F13.139 Sedative, hypnotic or anxiolytic abuse with withdrawal, unspecified; Z20.822 Contact with and (suspected) exposure to COVID-19; Z91.14 Patient's other noncompliance with medication regimen; Z71.6 Tobacco abuse counseling; Z88.5 Allergy status to narcotic agent; Z88.6 Allergy status to analgesic agent; Z79.82 Long term (current) use of aspirin; Z79.899 Other long term (current) drug therapy
CPT/HCPCS: 36415; 71045; 71250; 76705; 80048; 80053; 80076; 80143; 80307; 81001; 82077; 82550; 83605; 83690; 83735; 84484; 85025; 85730; 86704; 86706; 86803; 87040; 87076; 87086; 87185; 87205; 87340; 87389; 87502; 87635; 93005; 94640; 99285; J0696; J1650; J2060; J2405; J3411; J3475

== ENCOUNTER 2022-11-26 11:29 | Outpatient (AMB) | payer OTHER, SELFPAY ==
--- NOTE | 2022-11-26 11:30 | MHC.PC.OV ---
Vital Signs 11/26/22 11:32 Height 5 ft Weight 186 lb BMI 36.3 BP 110/64 Blood Pressure Location Lt brachial Position Sitting Pulse 104 H Pulse Source Pulse Oximeter Pulse Oximetry (%) 98 Oxygen Delivery Method Nasal Cannula Intake Visit Reasons: Left Shoulder Pain Intake Note: Patient is here today for left shoulder pain Director Of Retail Operations Required: No Nursing Assoc: Not Required per policy Accompanied by: Self / Same As Patient Allergies acetaminophen [Vicodin] Allergy (Unknown, Verified 11/26/22 11:31) Unknown hydrocodone [Vicodin] Allergy (Unknown, Verified 11/26/22 11:31) Unknown sumatriptan [From IMITREX] Allergy (Unknown, Verified 11/26/22 11:31) VOMITING,RASH Medication List - Last Reconciled 11/26/22 by Jair Lemus MD albuterol sulfate 90 mcg/actuation (Ventolin HFA) 2 puffs inhalation Q6H PRN amlodipine 5 mg PO DAILY 30 days aspirin 81 mg PO DAILY blood sugar diagnostic (FreeStyle Lite Strips) BID and PRN blood-glucose meter (FreeStyle Lite Meter kit) As directed cane As directed diaper,brief,adult,disposable (Wings Choice Plus Adult Briefs) As directed gabapentin 900 mg (3 x 300 mg) PO TID 30 days ipratropium-albuterol 0.5 mg-3 mg(2.5 mg base)/3 mL 3 mL inhalation Q4H PRN lancets (FreeStyle Lancets) BID and PRN metformin 500 mg PO BID methadone (Methadone Intensol) 135 mg PO DAILY mirtazapine 30 mg PO BEDTIME 30 days omeprazole 40 mg PO DAILY 30 days Oxygen Home Use 2L nasal cannula continuous prazosin 3 mg See Protocol PO BEDTIME 30 days [pulse oximeter As directed] quetiapine 12.5 mg (1/2 x 25 mg) PO Q4H PRN 30 days Tobacco use date assessed: 11/26/22 Dental Screening Dental Screen Date: 11/26/22 Did you have a dental visit in the last 12 months?: No Did you have a dental problem in the last 6 months where you did not have access to dental care?: No Was dental information given to patient?: No HPI Left Shoulder Pain HPI Details left shoulder pain for a week PFSH Medical History (Updated 11/26/22 @ 11:47 by Jair Lemus MD) Anxiety Anxiety and depression Cirrhosis Cocaine abuse COPD (chronic obstructive pulmonary disease) Cranial nerve dysfunction Depression Diabetes Hypertension Lightheaded Nephrolithiasis Obesity Polysubstance abuse Splenic vein thrombosis Surgical History H/O wrist surgery Family History Father No problems noted. Mother Diabetes Social History Household Members: Children Household Members Other:: SonKirby Housing: Apartment Are you a primary patient care assistant to a significant other at home: No Do you presently have visiting nurse or other home services: Yes 75 years or older and lives alone: No Alcohol intake: current Alcohol intake frequency: does not drink Patient Tobacco Use Status: Current everyday Tobacco user Tobacco use type: Cigarette Cigarette Packs Per Day: 0.5 Cigarettes Per Day: 2 Years Smoked: 30+ e-Cigarette/Vaping Use: Never Used Second Hand Smoke Exposure: Yes Substance Use Type: Crack/Cocaine, Marijuana, Methamphetamine and Opiates service: No Current occupational status: disabled Sexual orientation: Straight/Heterosexual Gender identity: Female Cognitive needs: Yes Hearing needs: No Vision needs: No Questionnaire Thrive Questionnaire Date Thrive assessed: 06/03/22 WILD-7 AMB Questionnaire WILD-7 Date WILD - 7 assessed: 06/03/22 Source: Developed by Drs. Maxx Vergara, Minnie Valle, Kashmir Johnson and colleagues, with an educational chandu from [employer]. Review of Systems Const Denies chills, Denies headache(s) and Denies weight loss ENT Denies headache(s) Card Denies chest pain, Denies syncope, Denies irregular heart rhythm and Denies dyspnea Resp Denies chest congestion, Denies cough and Denies dyspnea GI Denies abdominal pain, Denies change in stool character, Denies nausea and Denies vomiting Musc Denies deformity and Denies joint swelling Neuro Denies syncope and Denies headache(s) Physical exam (Primary Care) Vital Signs: Last Vital Signs Pulse 104 H 11/26/22 11:32 BP 110/64 11/26/22 11:32 Pulse Ox 98 11/26/22 11:32 Oxygen Delivery Method Nasal Cannula 11/26/22 11:32 BMI result Body Mass Index 36.3 Tobacco/Smoking Status: Tobacco use Status Tobacco use date assessed 11/26/22 11/26/22 11:38 Patient Tobacco Use Status Current everyday Tobacco 11/26/22 11:38 Tobacco use type Cigarette 11/26/22 11:38 e-Cigarette/Vaping Use Never Used 11/26/22 11:38 Thrive Assessment: Date of Thrive Assessment Date Thrive assessed 06/03/22 11/26/22 11:38 Const General: cooperative, comfortable and no acute distress Chest Chest palpation & inspection: normal inspection of the chest Resp Effort & Inspection: normal respiratory effort Auscultation: clear to auscultation bilaterally Percussion: percussion normal Cardio Jugular venous distension: no JVD Rate: regular rate Rhythm: regular rhythm Assessment and Plan Assessment & Plan (1) Shoulder pain: Code(s): M25.519 - Pain in unspecified shoulder Plan: xr and rx Orders: Orders XR shoulder LT min 2V Today M25.519 - Pain in unspecified shoulder Medications: New naproxen (Naprosyn) 500 mg PO BID PRN 60 tabs 0RF pain Refilled diaper,brief,adult,disposable (Wings Choice Plus Adult Briefs) As directed 60 ea 0RF quetiapine 12.5 mg (1/2 x 25 mg) PO Q4H 30 days PRN 30 tabs 6RF anxiety Coding Level of Care Code Est Pt Level 3 (51391) Diagnoses Shoulder pain M25.519
[2022-11-26 11:32] VITALS: BP 110/64; PULSE 104; O2SAT 98; BMI 36.3
== END 2022-11-26 12:18 | disposition home or self-care (01) ==
PROVIDERS: PCP Internal Medicine; Visit Provider Internal Medicine
DX: M25.519 Pain in unspecified shoulder (principal)
CPT/HCPCS: 99213

== ENCOUNTER 2022-12-29 05:32 | Inpatient (IN) | payer OTHER, SELFPAY ==
[2022-12-29] VITALS (11 sets, daily range): BP systolic 120–141; BP diastolic 63–94; PULSE 88–120; RESP 10–20; TEMP 36.1–36.8; O2SAT 91–98; BMI 32.8
--- NOTE | 2022-12-29 | ECG_ITS ---
Test Reason : tachy Blood Pressure : / mmHG Vent. Rate : 117 BPM Atrial Rate : 117 BPM P-R Int : 138 ms QRS Dur : 086 ms QT Int : 330 ms P-R-T Axes : 076 096 072 degrees QTc Int : 460 ms Sinus tachycardia Possible Left atrial enlargement Incomplete right bundle branch block Rightward axis Nonspecific T wave abnormality Abnormal ECG When compared with ECG of 29-JUN-2022 12:02, Nonspecific T wave abnormality is now Present Heart rate has increased Referred By: Generic ED Physician Electronically Signed By:ROSENDO MATHIS
--- NOTE | ~2022-12-29 | CT_ITS ---
EXAMINATION: CT ABDOMEN AND PELVIS WITHOUT CONTRAST CLINICAL INFORMATION: Epigastric pain. COMPARISON: None available. TECHNIQUE: Multidetector volumetric images were obtained from the superior aspect of the liver through the pubic symphysis without oral or intravenous contrast. Sagittal and coronal reformatted images were obtained on the technologist's workstation. Oral contrast: No This CT examination was performed using dose optimization techniques as appropriate, variously including the following: *Automated exposure control *Adjustment of mA and/or kV according to patient size (this includes techniques or standardized protocols for targeted exams where dose is matched to indication/reason for exam; i.e. extremities or head) *Use of iterative reconstruction technique DLP: 535 mGy-cm FINDINGS: LUNG BASES: The lung bases appear clear, with no evidence of inflammation or nodules. LIVER, GALLBLADDER, AND BILIARY TREE: Fatty infiltration of the liver. Liver measures approximately 20.5 cm in sagittal dimension. Unremarkable hepatic contour. No focal hepatic lesion or biliary ductal dilatation is appreciated. Unremarkable appearance of the gallbladder. PANCREAS: Unremarkable SPLEEN: Unremarkable. Measures approximately 10 cm in sagittal dimension. ADRENAL GLANDS: Approximately 2.8 cm benign left adrenal adenoma demonstrating Hounsfield unit density of -4. No further dedicated follow up imaging of this finding is indicated. KIDNEYS AND URETERS: At least 3, 0.6 cm or less, nonobstructing left renal collecting system stones predominantly in the lower pole. No stone identified in the right. No hydronephrosis or hydroureter identified on either side. Multiple focal left renal cortical scars. Right kidney appears unremarkable in size and shape. BLADDER: Unremarkable GASTROINTESTINAL TRACT: Limited by lack of oral contrast. No diverticulosis. Normal-appearing distal ileum and vermiform appendix. ABDOMINAL WALL: No significant hernia is appreciated. LYMPH NODES: No evidence of adenopathy by size criteria. VASCULAR: Unremarkable PELVIC VISCERA: Unremarkable OSSEOUS STRUCTURES: Unremarkable CT/CT abdomen pelvis w IV con IMPRESSION: No acute finding. Fatty infiltration of the liver. Mild hepatomegaly. At least 3, 0.6 cm or less, nonobstructing left renal collecting system stones predominantly in the lower pole. Multiple focal left renal cortical scars. Additional findings, as above.
--- NOTE | ~2022-12-29 | XR_ITS ---
EXAMINATION: XR ABDOMEN COMPLETE CLINICAL INDICATION: Constipation. Abdominal pain. COMPARISON: 12/31/2019 TECHNIQUE: 2 views of the abdomen. FINDINGS: Nonobstructive bowel gas pattern. Gas-filled appearance of the transverse colon. No significant small bowel dilatation. Mild stool burden of the left hemicolon seen. No free air on the decubitus view. No air-fluid levels. The lung bases are clear. No acute osseous abnormality. XR/XR abdomen min 2V IMPRESSION: Nonobstructive bowel gas pattern. Mild stool burden of the left hemicolon. No free air.
[2022-12-29] MEDS: 0.9 % Sodium Chloride 1,000 ML 999 ML IV (06:22)
[2022-12-29 06:23] LABS: MANUAL DIFF FLAG NO
[2022-12-29] MEDS: Insulin Regular, Human 100 UNIT/ML 3 ML VIAL IVPUSH ×2 (06:23→06:25)
[2022-12-29 06:24] LABS: Glucose, Whole Blood 538 mg/dL (60-115)
[2022-12-29 06:25] LABS: Basophils Percent Auto 0.4 % (0-2); Eosinophils Absolute Auto 0.1 X10*3/uL (0.0-0.4); Eosinophils Percent Auto 1.1 % (0-4); Hematocrit 49.5 % (37.0-47.0); Hemoglobin 15.2 g/dl (12.0-16.0); Imm Gran Abs Auto 0.03 X10*3/uL (0.00-0.03); Imm Gran Pct Auto 0.6 % (0.0-0.4); Lymphocytes Absolute Auto 0.8 X10*3/uL (1.2-4.9); Lymphocytes Percent Auto 14.6 % (20-40); Mean Corpuscular HGB Conc 30.7 g/dl (31.0-35.0); Mean Corpuscular Hemoglobin 31.2 pg (27.0-33.0); Mean Corpuscular Volume 101.6 fL (80.0-98.0); Mean Platelet Volume 11.1 fL (9.4-12.3); Monocytes Absolute Auto 0.3 X10*3/uL (0.1-1.2); Monocytes Percent Auto 5.4 % (2-11); Neutrophils Absolute Auto 4.2 x10*3/uL (2.0-8.3); Neutrophils Percent Auto 77.9 % (45-73); Platelet Count 177 X10*3/uL (160-400); Red Blood Count 4.87 X10*6/uL (4.20-5.50); Red Cell Distribution Width 13.6 % (11.0-16.0); White Blood Count 5.4 X10*3/uL (4.8-10.8)
--- NOTE | 2022-12-29 06:26 | PC.NURSE ---
Assumed care of pt. Pt transfered from EMS stretcher to hospital stretcher with multiple assist. Pt sts minimal PO intake and constipatoin x 5 days, also sts has only has juices to drink as she is tired of water . Pt lethargic, falling asleep during assessment, presentation concerning for possible DKA.. IV obtained, labs drawn, provider notified. pt POC glucose > 500, medications administered per orders.
[2022-12-29 06:28] LABS: VBG Base Excess -8.3 mmol/L; VBG HCO3 17 mmol/L (22-26); VBG pCO2 35 mmHg; VBG pH 7.28 (7.32-7.43); VBG pO2 112 mmHg
[2022-12-29 06:38] LABS: Venous Blood Gas Refer to POC result
[2022-12-29 06:48] LABS: Alanine Aminotransferase 55 U/L (0-31); Albumin Level 4.2 g/dL (3.5-5.0); Alkaline Phosphatase 172 U/L (39-117); Anion Gap 29 (12-20); Aspartate Amino Transferase 37 U/L (5-31); Bilirubin Total 0.4 mg/dL (0.0-1.0); Blood Urea Nitrogen 18 mg/dL (9-16); Calcium 10.1 mg/dL (8.4-10.2); Carbon Dioxide 17 mmol/L (22-29); Chloride 90 mmol/L (96-108); Estimated Glomerular Filt Rate 30; Glucose Random 564 mg/dL (60-115); Lipase 174 U/L (8-78); Potassium 4.8 mmol/L (3.3-5.1); Sodium 131 mmol/L (135-145)
--- NOTE | 2022-12-29 06:52 | PC.NURSE ---
made aware of current lab results concerning for possible DKA.
[2022-12-29 06:57] LABS: Beta-Hydroxybutyrate 7.46 mmol/L (0.02-0.27)
--- NOTE | 2022-12-29 07:02 | ED_ITS ---
HPI - Abdominal Pain General Chief Complaint: Abdominal Pain Stated Complaint: ABD PAIN/CONSTIPATION Time Seen by Provider: 12/29/22 06:57 Source: patient Mode of arrival: ambulatory Limitations: no limitations History of Present Illness HPI narrative: 57 yo female with hx of opiate use disorder on 135mg methadone daily, DM who has not taken her insulin in 5 days, pneumonia, HTN, COPD on 2L supplemental O2 prn, polysubstance abuse, GERD, aortic stenosis, cirrhosis, history alcohol abuse, anxiety - who comes in with constipation, abdominal pain and states she her sugar has been high since she stopped taking her insulin. She cannot tell me why she stopped. She also notes she was reaching for something and fell hitting her R flank two days ago. She had three shots of fireball 3 days ago. She denies any illicit substance abuse. MD elicited complaint: abdominal pain Pertinent past history: constipation Onset (ago): day(s) (3) Pain Consistency: constant Location: diffuse Quality: aching and fullness Radiation: none Migration to: no migration Exacerbating factors: eating and movement Context: history of similar episodes Associated symptoms: nausea and constipation Related Data Home Medications Medication Instructions Recorded Confirmed methadone 10 mg/mL oral 135 mg PO DAILY 02/02/22 11/26/22 concentrate (Methadone Intensol) pulse oximeter 02/03/22 11/26/22 ipratropium 0.5 mg-albuterol 3 mg 3 ml inhalation Q4H PRN shortness 09/29/22 12/29/22 (2.5 mg base)/3 mL nebulization of breath or wheezing soln Previous Rx's Medication Instructions Recorded Oxygen Home Use #1 ea 11/26/20 cane #1 ea 10/16/21 amlodipine 5 mg tablet 5 mg PO DAILY 30 days #30 tabs 03/09/22 omeprazole 40 mg capsule,delayed 40 mg PO DAILY 30 days #30 caps 06/23/22 release aspirin 81 mg tablet,delayed 81 mg PO DAILY #30 tabs 06/29/22 release gabapentin 300 mg capsule 900 mg PO TID 30 days #270 caps 07/01/22 prazosin 1 mg capsule 3 mg PO BEDTIME 30 days #90 caps 08/14/22 mirtazapine 30 mg tablet 30 mg PO BEDTIME 30 days #30 tabs 08/17/22 metformin 500 mg tablet 500 mg PO BID #180 tabs 10/08/22 blood-glucose meter (FreeStyle #1 ea 10/19/22 Lite Meter kit) blood sugar diagnostic (FreeStyle #100 ea 10/21/22 Lite Strips) lancets 28 gauge (FreeStyle #100 ea 10/21/22 Lancets) albuterol sulfate 90 mcg/actuation 2 puff inhalation Q6H PRN for 11/21/22 aerosol inhaler (Ventolin HFA) wheezing #18 ea diaper,brief,adult,disposable #60 ea 11/26/22 ([employer] Plus Adult Briefs) quetiapine 25 mg tablet 12.5 mg PO Q4H PRN anxiety 30 days 11/29/22 #30 tabs naproxen 500 mg tablet (Naprosyn) 500 mg PO BID PRN pain #60 tabs 12/24/22 Allergies Allergy/AdvReac Type Severity Reaction Status Date / Time acetaminophen [Vicodin] Allergy Unknown Unknown Verified 11/26/22 11:31 hydrocodone [Vicodin] Allergy Unknown Unknown Verified 11/26/22 11:31 sumatriptan [From IMITREX] Allergy Unknown VOMITING,RA Verified 11/26/22 11:31 Review of Systems Review of Systems Constitutional : No Weight loss, No Fever, No Chills Cardiovascular : No Chest Pain, No SOB, NoEdema Respiratory : No Cough, No Sputum, No Wheezing Gastrointestinal : Positive Nausea, no Vomiting, no Diarrhea, positive abdominal Pain, No Hematochezia, No Melena, pos constipation Genitourinary : No Dysuria, No Urinary Frequency, No Hematuria, No Urgency Musculoskeletal : No joint pain, No Myalgias, No Joint Swelling Skin : No Skin Lesions, No rash Neuro : No Weakness, No Numbness, No Dizziness, No Headache Psych : No Anxiety/Panic, No Depression All other systems reviewed and are negative. FOR[facility]LY [facility], [facility] Past Medical History Attestation statement: The following information was validated with the patient. Medical History Anxiety Anxiety and depression Cirrhosis Cocaine abuse COPD (chronic obstructive pulmonary disease) Cranial nerve dysfunction Depression Diabetes Hypertension Lightheaded Nephrolithiasis Obesity Polysubstance abuse Splenic vein thrombosis Surgical History H/O wrist surgery Family History Family History Father No problems noted. Mother Diabetes Social History Social History Household Members: Children Household Members Other:: Son, Kirby Mcdermott Housing: Apartment Are you a primary adult caregiver to a significant other at home: No Do you presently have visiting nurse or other home services: Yes Alcohol intake: current Alcohol intake frequency: a few times a week Patient Tobacco Use Status: Current everyday Tobacco user Tobacco use type: Cigarette Cigarette Packs Per Day: 0.5 Cigarettes Per Day: 2 Years Smoked: 30+ Smoked in Last 30 Days: Yes e-Cigarette/Vaping Use: Never Used Second Hand Smoke Exposure: Yes Use of substances other than those prescribed or required for medical reasons: Yes Substance Use Type: Marijuana Advance Directives: No Advance Directives Information Provided: Yes Patient : No service: No Current occupational status: disabled Sexual orientation: Straight/Heterosexual Gender identity: Female Cognitive needs: Yes Hearing needs: No Vision needs: No Physical Exam ED Vital Signs: Vital Signs - 24 hr 12/29/22 05:39 12/29/22 06:17 12/29/22 08:00 Temperature 98.2 F 98.1 F Pulse Rate 117 H 114 H 104 H Respiratory Rate 20 12 19 Blood Pressure 125/76 139/79 140/76 H Pulse Oximetry 94 97 92 Oxygen Delivery Method Nasal Cannula Nasal Cannula Nasal Cannula Oxygen Flow Rate 2 2 12/29/22 08:47 12/29/22 09:14 Temperature 98.0 F Pulse Rate 99 107 H Respiratory Rate 14 17 Blood Pressure 122/75 122/75 Pulse Oximetry 91 L 95 Oxygen Delivery Method Nasal Cannula Nasal Cannula Oxygen Flow Rate 2 2 BMI result Body Mass Index 32.8 Appearance: Alert. Oriented X3. No acute distress. Appears under the influence Eyes: Pupils equal, round and reactive to light. ENT: Pharynx normal. Neck: Normal inspection. Neck supple. CVS: Normal heart rate and rhythm. Pulses normal. Respiratory: No respiratory distress. Breath sounds slightly diminished on 2L NC Abdomen: Distended but soft no rebound or guarding Skin: Skin warm and dry. pale skin color. Normal skin turgor. Extremities: No lower extremity edema. No calf ttp Neuro: Oriented X 3. No motor deficit. No sensory deficit. Course Course Course Narrative: corrected off drip given 10 units lantus I do not feel she is able to manage her sugars right now and will come right back in DKA will ask for admission of drip at this time Medical Decision Making Medical Decision Making [facility] Narrative: 57 yo female with hx of opiate use disorder on 135mg methadone daily, DM who has not taken her insulin in 5 days, pneumonia, HTN, COPD on 2L supplemental O2 prn, polysubstance abuse, GERD, aortic stenosis, cirrhosis, history alcohol abuse, anxiety here with abdominal pain and constipation - labs show DKA I have started her on insulin drip and will likely start on D5 given sugar is low until gap is closed. She denies infectious symptoms. I suspect poor compliance and substance abuse given her appearance. I am going to order CT scan to evaluate her pancreas and hydrate her. She cannot tell me why she was not compliant. She will get UA as well - she denies CP/SOB. She denies cough or URI symptoms. I believe her DKA is related to non compliance. Differential Diagnosis Differential Diagnoses: The differential diagnosis associated with the presentation includes pancreatitis, DKA, UTI, non compliance, substance abuse, dehydration, SBO, constipation Admission/Observation Consideration of admission/observation: Escalation of care including admission/observation considered admit for further management and observation high risk for failure Consult Healthcare Provider Management of the patient was discussed with: Hospitalist agrees to admit Lab Data [facility] Lab Attestation statement: I reviewed the patient's lab results. 12/29/22 06:14 12/29/22 06:14 Labs: Lab Results 12/29/22 12/29/22 12/29/22 Range/Units 06:08 06:14 06:14 WBC 5.4 (4.8-10.8) X10*3/uL RBC 4.87 (4.20-5.50) X10*6/uL Hgb 15.2 (12.0-16.0) g/dl Hct 49.5 H (37.0-47.0) % MCV 101.6 H (80.0-98.0) fL MCH 31.2 (27.0-33.0) pg MCHC 30.7 L (31.0-35.0) g/dl RDW 13.6 (11.0-16.0) % Plt Count 177 D (160-400) X10*3/uL MPV 11.1 (9.4-12.3) fL Immature Gran % (Auto) 0.6 H (0.0-0.4) % Neut % (Auto) 77.9 H (45-73) % Lymph % (Auto) 14.6 L (20-40) % Bay % (Auto) 5.4 (2-11) % Eos % (Auto) 1.1 (0-4) % Baso % (Auto) 0.4 (0-2) % Lymph # (Auto) 0.8 L (1.2-4.9) X10*3/uL Bay # (Auto) 0.3 (0.1-1.2) X10*3/uL Eos # (Auto) 0.1 (0.0-0.4) X10*3/uL Baso # (Auto) 0.0 (0.0-0.2) X10*3/uL Abs Immat Gran (auto) 0.03 (0.00-0.03) X10*3/uL Absolute Neuts (auto) 4.2 (2.0-8.3) x10*3/uL Absolute Nucleated RBC 0.000 (0.0-0.012) X10*3/uL Nucleated RBC % (auto) 0.0 (0.0-0.2) /100WBC VBG pH (7.32-7.43) VBG pCO2 mmHg VBG pO2 mmHg VBG HCO3 (22-26) mmol/L VBG O2 Saturation % VBG Base Excess mmol/L Sodium 131 L (135-145) mmol/L Potassium 4.8 (3.3-5.1) mmol/L Chloride 90 L (96-108) mmol/L Carbon Dioxide 17 L (22-29) mmol/L Anion Gap 29 H (12-20) BUN 18 H (9-16) mg/dL Creatinine 1.77 H (0.5-1.4) mg/dL Estim Creat Clear Calc 32.0 Estimated GFR 30 POC Glucose 538 H* (60-115) mg/dL Random Glucose 564 H* (60-115) mg/dL Calcium 10.1 D (8.4-10.2) mg/dL Total Bilirubin 0.4 (0.0-1.0) mg/dL AST 37 H (5-31) U/L ALT 55 H (0-31) U/L Alkaline Phosphatase 172 H (39-117) U/L Troponin I High Sens (<3.5-17.0) ng/L Total Protein 9.0 H (6.5-8.0) g/dL Albumin 4.2 (3.5-5.0) g/dL Lipase 174 H (8-78) U/L Beta-Hydroxybutyrate (0.02-0.27) mmol/L Ethyl Alcohol < 10 mg/dL 12/29/22 12/29/22 12/29/22 Range/Units 06:14 06:14 06:20 WBC (4.8-10.8) X10*3/uL RBC (4.20-5.50) X10*6/uL Hgb (12.0-16.0) g/dl Hct (37.0-47.0) % MCV (80.0-98.0) fL MCH (27.0-33.0) pg MCHC (31.0-35.0) g/dl RDW (11.0-16.0) % Plt Count (160-400) X10*3/uL MPV (9.4-12.3) fL Immature Gran % (Auto) (0.0-0.4) % Neut % (Auto) (45-73) % Lymph % (Auto) (20-40) % Bay % (Auto) (2-11) % Eos % (Auto) (0-4) % Baso % (Auto) (0-2) % Lymph # (Auto) (1.2-4.9) X10*3/uL Bay # (Auto) (0.1-1.2) X10*3/uL Eos # (Auto) (0.0-0.4) X10*3/uL Baso # (Auto) (0.0-0.2) X10*3/uL Abs Immat Gran (auto) (0.00-0.03) X10*3/uL Absolute Neuts (auto) (2.0-8.3) x10*3/uL Absolute Nucleated RBC (0.0-0.012) X10*3/uL Nucleated RBC % (auto) (0.0-0.2) /100WBC VBG pH 7.28 L (7.32-7.43) VBG pCO2 35 mmHg VBG pO2 112 mmHg VBG HCO3 17 L (22-26) mmol/L VBG O2 Saturation 99.0 % VBG Base Excess -8.3 mmol/L Sodium (135-145) mmol/L Potassium (3.3-5.1) mmol/L Chloride (96-108) mmol/L Carbon Dioxide (22-29) mmol/L Anion Gap (12-20) BUN (9-16) mg/dL Creatinine (0.5-1.4) mg/dL Estim Creat Clear Calc Estimated GFR POC Glucose (60-115) mg/dL Random Glucose (60-115) mg/dL Calcium (8.4-10.2) mg/dL Total Bilirubin (0.0-1.0) mg/dL AST (5-31) U/L ALT (0-31) U/L Alkaline Phosphatase (39-117) U/L Troponin I High Sens < 2.7 (<3.5-17.0) ng/L Total Protein (6.5-8.0) g/dL Albumin (3.5-5.0) g/dL Lipase (8-78) U/L Beta-Hydroxybutyrate 7.46 H (0.02-0.27) mmol/L Ethyl Alcohol mg/dL 12/29/22 12/29/22 12/29/22 Range/Units 07:11 08:02 08:45 WBC (4.8-10.8) X10*3/uL RBC (4.20-5.50) X10*6/uL Hgb (12.0-16.0) g/dl Hct (37.0-47.0) % MCV (80.0-98.0) fL MCH (27.0-33.0) pg MCHC (31.0-35.0) g/dl RDW (11.0-16.0) % Plt Count (160-400) X10*3/uL MPV (9.4-12.3) fL Immature Gran % (Auto) (0.0-0.4) % Neut % (Auto) (45-73) % Lymph % (Auto) (20-40) % Bay % (Auto) (2-11) % Eos % (Auto) (0-4) % Baso % (Auto) (0-2) % Lymph # (Auto) (1.2-4.9) X10*3/uL Bay # (Auto) (0.1-1.2) X10*3/uL Eos # (Auto) (0.0-0.4) X10*3/uL Baso # (Auto) (0.0-0.2) X10*3/uL Abs Immat Gran (auto) (0.00-0.03) X10*3/uL Absolute Neuts (auto) (2.0-8.3) x10*3/uL Absolute Nucleated RBC (0.0-0.012) X10*3/uL Nucleated RBC % (auto) (0.0-0.2) /100WBC VBG pH (7.32-7.43) VBG pCO2 mmHg VBG pO2 mmHg VBG HCO3 (22-26) mmol/L VBG O2 Saturation % VBG Base Excess mmol/L Sodium 140 (135-145) mmol/L Potassium 3.7 D (3.3-5.1) mmol/L Chloride 100 (96-108) mmol/L Carbon Dioxide 25 (22-29) mmol/L Anion Gap 19 (12-20) BUN 16 (9-16) mg/dL Creatinine 1.27 (0.5-1.4) mg/dL Estim Creat Clear Calc 44.5 Estimated GFR 43 POC Glucose 326 H 251 H (60-115) mg/dL Random Glucose 176 H (60-115) mg/dL Calcium 9.2 D (8.4-10.2) mg/dL Total Bilirubin (0.0-1.0) mg/dL AST (5-31) U/L ALT (0-31) U/L Alkaline Phosphatase (39-117) U/L Troponin I High Sens (<3.5-17.0) ng/L Total Protein (6.5-8.0) g/dL Albumin (3.5-5.0) g/dL Lipase (8-78) U/L Beta-Hydroxybutyrate (0.02-0.27) mmol/L Ethyl Alcohol mg/dL Independent Interpretation I performed an independent interpretation of an: EKG, Plain X-Ray (constipation) and CT Scan (no obstruction) Interpretation: Rate: 117 Rhythm: sinus tachycardia Milner: normal Normal P waves. Normal JESSICA. Normal QRS complex. ST T wave : nonspecific, no VEDA, poor R wave progression qTC: normal prior studies: no sig change from priors The study has been interpreted contemporaneously by me. . Radiology Impression Discussion of test interpretation with radiology: I have reviewed the radiologis t's reading. External Record Review External record reviewed: Inpatient record Chronic Conditions Patient?s care impacted by: Diabetes Social Determinants Patient?s care significantly limited by Social Determinants of Health including: Problems related to primary support group Medications Administered Discontinued Medications Generic Name Dose Route Start Last Admin Trade Name Freq PRN Reason Stop Dose Admin Sodium Chloride 1,000 mls @ 999 mls/hr 12/29/22 05:54 12/29/22 08:23 Ns IV 12/29/22 06:54 Infused .Q1H1M STA Infusion Insulin Human Regular 100 unit in 100 mls @ 7 mls/hr 12/29/22 07:00 12/29/22 09:42 Myxredlin IVCONT Infused .[id number] NAYE Titration Protocol 7 UNIT/HR Lactated Ringer's 1,000 mls @ 999 mls/hr 12/29/22 07:00 12/29/22 08:23 Lr IV 12/29/22 08:00 Infused .Q1H1M NAYE Infusion Dextrose/Sodium Chloride 1,000 mls @ 125 mls/hr 12/29/22 07:15 12/29/22 09:44 D5ns IVCONT Infused .Q8H NAYE Infusion Insulin Glargine 10 unit 12/29/22 09:39 12/29/22 09:47 Insulin Glargine,Hum.Rec.Anlog 100 Unit/Ml 10 Ml Vial SUBCUT 12/29/22 09:40 10 unit ONCE ONE Administration Insulin Human Regular 5 unit 12/29/22 05:54 12/29/22 06:23 Insulin Regular, Human 100 Unit/Ml 3 Ml Vial IVPUSH 12/29/22 05:55 5 unit ONCE ONE Administration Insulin Human Regular 5 unit 12/29/22 06:12 12/29/22 06:25 Insulin Regular, Human 100 Unit/Ml 3 Ml Vial IVPUSH 12/29/22 06:13 5 unit ONCE ONE Administration Methadone HCl 135 mg 12/29/22 07:53 12/29/22 09:11 Methadone Hcl 20 Mg/2 Ml Oral.Conc PO 12/29/22 07:54 135 mg ONCE ONE Administration Critical Care Time Critical Care Time Critical Care Time: Yes Total Critical Care Time: 60 Attestation: insulin drip, repeat lytes Discharge Plan Discharge Clinical Impression: Nausea, Medical non-compliance DKA (diabetic ketoacidosis) Qualifiers: Diabetes mellitus type: other specified (including JAYANT) Diabetes mellitus complication detail: without coma Qualified Code(s): E13.10 - Other specified diabetes mellitus with ketoacidosis without coma Abdominal pain Qualifiers: Abdominal location: epigastric Qualified Code(s): R10.13 - Epigastric pain Patient Disposition: Admitted As Inpatient
[2022-12-29] MEDS: Lactated Ringers 1,000 ML 999 ML IV (07:06)
[2022-12-29 07:15] LABS: Glucose, Whole Blood 326 mg/dL (60-115)
[2022-12-29] MEDS: Insulin Regular/NS 100 UNIT/100 ML PLAST..BAG 7 UNIT IVCONT (07:30)
--- NOTE | 2022-12-29 07:57 | HE.PHANOTE ---
RE: METHADONE Pharmacy received patients methadone verification form. Verified with [facility], patient last doses with 135 mg on 12/28/22 @[id number]
[2022-12-29] MEDS: Dextrose 5 % and 0.9 % NaCl 1,000 ML 125 ML IVCONT (08:10)
[2022-12-29 08:11] LABS: Glucose, Whole Blood 251 mg/dL (60-115)
[2022-12-29 08:12] LABS: Ethanol < 10 mg/dL
--- NOTE | 2022-12-29 08:12 | PC.NURSE ---
METHADONE DOSE CONFIRMED, SLEEPING ON AND OFF, C/O PAIN IN CHEST AND ASKING FOR PAIN MEDS, MD AWARE, POC 251 AND D 5 NS STARTED ORDERED, MD AWARE,, SKIN [facility]PD ST ON MONITOR
[2022-12-29 08:13] LABS: Troponin-I High Sensitivity < 2.7 ng/L (<3.5-17.0)
--- NOTE | 2022-12-29 08:23 | PHA.MEDREC ---
Pharmacy Consult ? Medication Reconciliation Pharmacy has completed the medication reconciliation. spoke with patient to confirm medications. Patient reports receiving methadone 135 mg from [facility] and she says her last dose was yesterday 12/28.
[2022-12-29] MEDS: methADONE HCl 20 MG/2 ML ORAL.CONC 135 MG PO (09:11)
[2022-12-29 09:36] LABS: Anion Gap 19 (12-20); Blood Urea Nitrogen 16 mg/dL (9-16); Calcium 9.2 mg/dL (8.4-10.2); Carbon Dioxide 25 mmol/L (22-29); Chloride 100 mmol/L (96-108); Creatinine Clr Calc Pharmacy 44.5; Estimated Glomerular Filt Rate 43; Glucose Random 176 mg/dL (60-115); Potassium 3.7 mmol/L (3.3-5.1); Sodium 140 mmol/L (135-145)
--- NOTE | 2022-12-29 09:44 | PC.NURSE ---
INSULIN AND D5 NS D/C PER DR PETERS. PT W NAD, SLEEPING
[2022-12-29] MEDS: Insulin Glargine,Hum.rec.anlog 100 UNIT/ML 10 ML VIAL 10 UNIT SUBCUT (09:47)
[2022-12-29] MEDS: Lactated Ringers 1,000 ML 100 ML IVCONT (10:10)
--- NOTE | 2022-12-29 11:18 | P.HPHOSP_ITS ---
The patient was seen and evaluated with FELTON Koch. I agree with her note, assessment and plan with the following. 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 DM II w DKA, Gap closing, start PO and Lantus HENRY, improving w IVF, follow BMP AMS, likely 2/2 substance abuse , pending drug screen, Alcohol abuse w risk of withdrawal, keep on CIWA and start Phenobarb Rest of evaluations by ACCOUNTING MACHINE SERVICER note. History of Present Illness Date of Service: 12/29/22 Attending physician on admission: Jessy Shaffer Chief Complaint: abd pain, n/v 57 year old female with history of htn, COPD on 2L supplemental O2 prn, opioid depedence on methadone, polysubstance abuse, GERD, aortic stenosis, cirrhosis, history alcohol abuse, controlled type 2 diabetes, anxiety?presented to the ED for evaluation of abd pain, constipation, nausea, and feeling very unwell. States she also had two falls onto the her right side 5 days ago. She is a regular etoh consumer and states she drinks 6 nips fireball every other day . States she no longer uses iliicit drugs. However, during exam patient intermittently somnolant but arousable and able to answer questions. On arrival, vitals stable though patient is slightly tachycardic to 107. There is no leukocytosis or anemia. Initial creatinine 1.77, BUN 18, sodium 131, chloride 90, potassium 4.8, CO2 17, anion gap 29 with glucose 564. Beta hydroxybutyrate 7.48. Initial pH 7.28, pCO2 35, PO2 112, bicarb 17. Patient given 5 units regular insulin and started on insulin drip while in the ED. She was also given LR and D5 NS in conjunction with this. She was successfully weaned from insulin drip been given 10 units insulin glargine. ABG corrected to pH 7.35, pCO2 34, bicarb 19. Creatinine improved to 1.14, BUN 14. Sodium 138, potassium 4.0, anion gap closing 22. POC glucose on admission 220. UA and Urine drug tox pending, ethyl alcohol level undetectable. She is complaining some mild epigastric pain. Lipase slightly elevated at 170. However at CT abdomen/pelvis without any acute finding, pancreas unremarkable. No ongoing n/v. Review of Systems Review of Systems: General: No fevers, malaise, unintentional weight loss HEENT: No blurred vision, diplopia. No sore throat, nasal congestion, rhinorrhea, sinus pain, ear pain Cardiovascular: No chest pain, palpitations, or leg edema Respiratory: No shortness of breath, wheezing, cough GI: +abd pain, n/v, constipation. No vomiting, diarrhea, melena, hematochezia : No dysuria, hematuria, increased urinary frequency, decreased urinary output MSK: No myalgia, back pain Neuro: No headaches, weakness, paresthesias Skin: No rashes or lesions [facility] Medical History Anxiety Anxiety and depression Cirrhosis Cocaine abuse COPD (chronic obstructive pulmonary disease) Cranial nerve dysfunction Depression Diabetes Hypertension Lightheaded Nephrolithiasis Obesity Polysubstance abuse Splenic vein thrombosis Family History Father No problems noted. Mother Diabetes Surgical History H/O wrist surgery Social History Household Members: Children Household Members Other:: Son, Kirby Mcdermott Housing: Apartment Are you a primary foster care therapist to a significant other at home: No Do you presently have visiting nurse or other home services: Yes Alcohol intake: current Alcohol intake frequency: a few times a week Patient Tobacco Use Status: Current everyday Tobacco user Tobacco use type: Cigarette Cigarette Packs Per Day: 0.5 Cigarettes Per Day: 2 Years Smoked: 30+ Smoked in Last 30 Days: Yes e-Cigarette/Vaping Use: Never Used Second Hand Smoke Exposure: Yes Use of substances other than those prescribed or required for medical reasons: Yes Substance Use Type: Marijuana Advance Directives: No Advance Directives Information Provided: Yes Patient : No service: No Current occupational status: disabled Sexual orientation: Straight/Heterosexual Gender identity: Female Cognitive needs: Yes Hearing needs: No Vision needs: No Meds Allergies Allergy/AdvReac Type Severity Reaction Status Date / Time acetaminophen [Vicodin] Allergy Unknown Unknown Verified 11/26/22 11:31 hydrocodone [Vicodin] Allergy Unknown Unknown Verified 11/26/22 11:31 sumatriptan [From IMITREX] Allergy Unknown VOMITING,RA Verified 11/26/22 11:31 SH Active Medications: Current Medications Dextrose (Dextrose 50 % 25 Gm/50 Ml Syringe) 25 gm IVPUSH Q30M PRN PRN Reason: BG < 70 Lactated Ringer's (Lr) 1,000 mls @ 100 mls/hr IVCONT .Q10H NAYE Last Admin: 12/29/22 10:10 Dose: 100 mls/hr Pharmacy Consult (Consult Rx Perform Med Rec) 1 each MISCELLANE ONCE PRN PRN Reason: Consult order Home Medications Medication Instructions Recorded Confirmed Last Taken Type methadone 10 mg/mL oral 135 mg PO DAILY 02/02/22 11/26/22 06/29/22 History concentrate (Methadone Intensol) pulse oximeter 02/03/22 11/26/22 Unknown History ipratropium 0.5 mg-albuterol 3 mg 3 ml inhalation Q4H PRN shortness 09/29/22 12/29/22 Unknown History (2.5 mg base)/3 mL nebulization of breath or wheezing soln Physical Exam Vital Signs and Narrative: Vital Signs: Last Vital Signs Temp 98.0 F 12/29/22 08:47 Pulse 107 H 12/29/22 09:14 Resp 17 12/29/22 09:14 BP 122/75 12/29/22 09:14 Pulse Ox 95 12/29/22 09:14 O2 Del Method Nasal Cannula 12/29/22 09:14 O2 Flow Rate 2 12/29/22 09:14 Oxygen Flow Rate 2 12/29/22 05:39 BMI result Body Mass Index 32.8 Constitutional - No apparent distress Eyes - PERRLA, EOMI Cardiovascular - S1S2, RRR, No edema Respiratory - Normal lung expansion, Normal respiratory effort, No respiratory distress, CTA bilaterally Gastrointestinal - mild epigastric ttp. ND; +BS; No rebound or guarding Extremities - no calf tenderness bilaterally, no swelling Skin - Warm/Dry Neurological - somnolant but arousable, oriented x 3. CN II-XII in tact, 5/5 strength BUE and BLE Psychological - Appropriate affect Results Labs 12/29/22 06:14 12/29/22 08:45 Labs: Laboratory Results - last 24 hr 12/29/22 12/29/22 12/29/22 06:08 06:14 06:14 MCV 101.6 H MCH 31.2 MCHC 30.7 L RDW 13.6 Plt Count 177 D MPV 11.1 Immature Gran % (Auto) 0.6 H Neut % (Auto) 77.9 H Lymph % (Auto) 14.6 L Dade % (Auto) 5.4 Eos % (Auto) 1.1 Baso % (Auto) 0.4 Lymph # (Auto) 0.8 L Dade # (Auto) 0.3 Eos # (Auto) 0.1 Baso # (Auto) 0.0 Abs Immat Gran (auto) 0.03 Absolute Neuts (auto) 4.2 Absolute Nucleated RBC 0.000 Nucleated RBC % (auto) 0.0 VBG pH VBG pCO2 VBG pO2 VBG HCO3 VBG O2 Saturation VBG Base Excess Anion Gap 29 H Estim Creat Clear Calc 32.0 Estimated GFR 30 POC Glucose 538 H* Random Glucose 564 H* Calcium 10.1 D Total Bilirubin 0.4 AST 37 H ALT 55 H Alkaline Phosphatase 172 H Total Protein 9.0 H Albumin 4.2 Lipase 174 H Beta-Hydroxybutyrate Ethyl Alcohol < 10 12/29/22 12/29/22 12/29/22 06:14 06:20 07:11 MCV MCH MCHC RDW Plt Count MPV Immature Gran % (Auto) Neut % (Auto) Lymph % (Auto) Dade % (Auto) Eos % (Auto) Baso % (Auto) Lymph # (Auto) Dade # (Auto) Eos # (Auto) Baso # (Auto) Abs Immat Gran (auto) Absolute Neuts (auto) Absolute Nucleated RBC Nucleated RBC % (auto) VBG pH 7.28 L VBG pCO2 35 VBG pO2 112 VBG HCO3 17 L VBG O2 Saturation 99.0 VBG Base Excess -8.3 Anion Gap Estim Creat Clear Calc Estimated GFR POC Glucose 326 H Random Glucose Calcium Total Bilirubin AST ALT Alkaline Phosphatase Total Protein Albumin Lipase Beta-Hydroxybutyrate 7.46 H Ethyl Alcohol 12/29/22 12/29/22 08:02 08:45 MCV MCH MCHC RDW Plt Count MPV Immature Gran % (Auto) Neut % (Auto) Lymph % (Auto) Dade % (Auto) Eos % (Auto) Baso % (Auto) Lymph # (Auto) Dade # (Auto) Eos # (Auto) Baso # (Auto) Abs Immat Gran (auto) Absolute Neuts (auto) Absolute Nucleated RBC Nucleated RBC % (auto) VBG pH VBG pCO2 VBG pO2 VBG HCO3 VBG O2 Saturation VBG Base Excess Anion Gap 19 Estim Creat Clear Calc 44.5 Estimated GFR 43 POC Glucose 251 H Random Glucose 176 H Calcium 9.2 D Total Bilirubin AST ALT Alkaline Phosphatase Total Protein Albumin Lipase Beta-Hydroxybutyrate Ethyl Alcohol Imaging Radiologist's Impressions: Impressions Abdomen X-Ray 12/29/22 06:48 IMPRESSION: Nonobstructive bowel gas pattern. Mild stool burden of the left hemicolon. No free air. Abdomen/Pelvis CT 12/29/22 07:22 IMPRESSION: No acute finding. Fatty infiltration of the liver. Mild hepatomegaly. At least 3, 0.6 cm or less, nonobstructing left renal collecting system stones predominantly in the lower pole. Multiple focal left renal cortical scars. Additional findings, as above. Assessment and Plan (1) DKA (diabetic ketoacidosis): Qualifiers: Diabetes mellitus complication detail: without coma Diabetes mellitus type: other specified (including JAYANT) Qualified Code(s): E13.10 - Other specified diabetes mellitus with ketoacidosis without coma Status: Acute (2) Abdominal pain: Qualifiers: Abdominal location: epigastric Qualified Code(s): R10.13 - Epigastric pain Status: Acute Plan 57 year old female with history of htn, COPD on 2L supplemental O2 prn, opioid depedence on methadone, polysubstance abuse, GERD, aortic stenosis, cirrhosis, history alcohol abuse, controlled type 2 diabetes, anxiety?admitted for further management of DKA and toxic metabolic encephalopathy. #DKA -has [id number] type 2 diabetes at baseline, hemoglobin A1c pending -beta hydroxybutyrate 7.3, AG metabolic acidosis anion gap 29 now closing, HENRY, hyponatremia. weaned from insulin drip -likely related to medication noncompliance and substance use -given 10 units Lantus -POC glucose on admission 206 -diabetic diet -Humalog on sliding scale -POC glucose qidachs #Anion gap metabolic acidosis- due to above -AG closing, insuling drip dc'd, glucose levels improved #Acute kidney injury -due to above -Initial creat 1.77, improved to 1.14 -Continue IVF -Avoid nephrotoxins -Follow BMP # acute toxic metabolic encephalopathy -suspect related to substance use -VBG reassuring -urine drug screen pending, UA pending -monitor mentation #? Acute alcohol withdrawal -monitor on CIWA -initiate phenobarbital per protocol -Addiction med consult #Acute gastritis- like2/2 etoh use -Lipase slightly elevated, but CT abd/pelvis negative for pancreatitis. No n/v -omeprazole 40mg -carafate prn -Consider GI follow if needed #Acute constipation -miralax, docusate # polysubstance abuse with opioid dependence -continue methadone -addiction medicine consult # COPD -no acute exacerbation -continue home inhalers, albuterol p.r.n. # hypertension -blood pressure is reasonably controlled -continue home antihypertensives DVT prophylaxis-Lovenox Full code Patient requires inpatient stay at least 2 midnights for further management of diabetic ketoacidosis which is improving now weaned from insulin drip but requiring ongoing close monitoring of glucose levels with recent history of medication noncompliance as well as for further management of acute toxic metabolic encephalopathy and alcohol withdrawal. Time Spent With Patient Time: Total time managing care of this patient today ____ minutes. Quality Stroke Does the patient have a stroke diagnosis?: No VTE Prior VTE?: No VTE Risk Level:: Medical - moderate - high VTE Device Contraindication: Treatment Not Indicated VTE Drug Contraindication: N/A - Med Ordered
[2022-12-29 11:22] LABS: Glucose, Whole Blood 193 mg/dL (60-115)
[2022-12-29 11:22] LABS: Glucose, Whole Blood 193 mg/dL (60-115)
[2022-12-29 11:23] LABS: Glucose, Whole Blood 191 mg/dL (60-115)
[2022-12-29 11:23] LABS: Glucose, Whole Blood 206 mg/dL (60-115)
[2022-12-29 12:29] LABS: VBG Base Excess -5.2 mmol/L; VBG HCO3 19 mmol/L (22-26); VBG pCO2 34 mmHg; VBG pH 7.35 (7.32-7.43); VBG pO2 63 mmHg
[2022-12-29 12:31] LABS: Venous Blood Gas Refer to POC result
[2022-12-29 12:31] LABS: Magnesium 1.7 mg/dL (1.6-2.6)
[2022-12-29 12:39] LABS: Anion Gap 22 (12-20); Blood Urea Nitrogen 14 mg/dL (9-16); Calcium 9.1 mg/dL (8.4-10.2); Carbon Dioxide 20 mmol/L (22-29); Chloride 100 mmol/L (96-108); Creatinine Clr Calc Pharmacy 49.6; Estimated Glomerular Filt Rate 49; Glucose Random 220 mg/dL (60-115); Sodium 138 mmol/L (135-145)
[2022-12-29 12:44] LABS: Lipase 169 U/L (8-78)
[2022-12-29] MEDS: Omeprazole 40 MG CAPSULE.DR PO (12:51)
[2022-12-29] MEDS: Enoxaparin Sodium 40 MG/0.4 ML SYRINGE SUBCUT (12:51)
[2022-12-29 13:06] LABS: Hemoglobin A1c % > 14.0 %
[2022-12-29] MEDS: PHENobarbitaL sodium 130 MG/ML IM ONCE 145 MG IM (13:56)
[2022-12-29] MEDS: Gabapentin 300 MG CAPSULE 900 MG PO ×2 (13:58→22:29)
[2022-12-29] MEDS: Sucralfate 1 GM TABLET PO (13:58)
--- NOTE | 2022-12-29 15:12 | MHC.CM.PN ---
Addendum entered by Sujey Wayne RN 12/29/22 15:14: PT WILL BE GIVEN 413 CARES PRIOR TO DC. Original Note: EMR REVIEWED, PT ADMITTED W/DKA, PT REPORTS SHE LIVES [place] [place], HAS A CANE/WALKER AND HOME O2 W/LINCARE, PT DOES NEED SOME ASSISTANCE AND HAS [facility] FOR [facility] 21HRS/WK, PT ALSO REPORTS SHE GOES DAILY TO [facility] FOR METHADONE MAINT AND GOES DAILY, PT REPORTS SHE USES [facility] FOR TRNASPORT AND WILL NEED PT1 FOR TRANSPORT ON DC. PT VERIFIES VICTORIA CADET IS HER PCP, PFIZER X2 AND HCP ON FILE IN [place]. DC PLAN: HOME W/[facility] OF [facility]/[employer] FOR HOME O2 AND [facility] FOR [facility], [facility] FOR TRANSPORT
[2022-12-29 16:05] LABS: Glucose, Whole Blood 303 mg/dL (60-115)
[2022-12-29] MEDS: PHENobarbitaL sodium 130 MG/ML VIAL IM Q3Hx2 145 MG IM ×2 (17:32→22:30)
[2022-12-29 18:08] LABS: Glucose, Whole Blood 378 mg/dL (60-115)
[2022-12-29] MEDS: Insulin Lispro 100 UNIT/ML 3 ML VIAL SUBCUT ×2 (18:34→22:30)
--- NOTE | 2022-12-29 19:22 | PC.NURSE ---
BS 378 ,FELTON Downing was notified,insulin administered as per scale,no need to monitor BS hourly
[2022-12-29 20:44] LABS: Glucose, Whole Blood 253 mg/dL (60-115)
[2022-12-29] MEDS: Prazosin HCL 1 MG CAPSULE 3 MG PO (22:29)
[2022-12-29] MEDS: Mirtazapine 30 MG TABLET PO (22:29)
[2022-12-30] MEDS: Lactated Ringers 1,000 ML 100 ML IVCONT ×2 (00:02→12:41)
[2022-12-30] MEDS: Omeprazole 40 MG CAPSULE.DR PO (05:39)
[2022-12-30 05:43] LABS: Appearance Urine Clear; Color Urine Yellow; Glucose Urine UA >=1000 mg/dL (Negative); Leukocyte Esterase Urine Negative (Negative); Nitrite Urine Negative (Negative); Specific Gravity - Urine 1.025 (1.005-1.025); UMIC TRIGGER UACC YES; Urine Blood Moderate (2+) (Negative); Urine Ketones 80 mg/dL (Negative); Urine Protein 30 (1+) mg/dL (Neg-Trace)
[2022-12-30 05:58] LABS: Bacteria Urine 4+ (None Seen); Hyaline Casts Urine 0-2 /LPF (0-2); Squamous Epithelial Cell Urine 0-2 /HPF (0-2); UACC Culture Trigger YES
[2022-12-30 06:20] LABS: Amphetamine Screen Urine Not Detected (Not Detect); Barbiturates, Urine POSITIVE (Not Detect); Benzodiazepines Screen Urine Not Detected (Not Detect); Cannabinoid Screen Urine POSITIVE (Not Detect); Cocaine Screen Urine Not Detected (Not Detect); Fentanyl, urine Not Detected (Not Detect); Opiate Screen Urine Not Detected (Not Detect); Phencyclidine Screen Urine Not Detected (Not Detect)
[2022-12-30 06:42] LABS: MANUAL DIFF FLAG NO
[2022-12-30 06:54] LABS: Basophils Percent Auto 0.8 % (0-2); Eosinophils Absolute Auto 0.1 X10*3/uL (0.0-0.4); Eosinophils Percent Auto 1.9 % (0-4); Hematocrit 41.2 % (37.0-47.0); Hemoglobin 12.8 g/dl (12.0-16.0); Imm Gran Abs Auto 0.03 X10*3/uL (0.00-0.03); Imm Gran Pct Auto 0.8 % (0.0-0.4); Lymphocytes Absolute Auto 0.8 X10*3/uL (1.2-4.9); Lymphocytes Percent Auto 20.3 % (20-40); Mean Corpuscular HGB Conc 31.1 g/dl (31.0-35.0); Mean Corpuscular Hemoglobin 31.4 pg (27.0-33.0); Mean Corpuscular Volume 101.2 fL (80.0-98.0); Mean Platelet Volume 11.1 fL (9.4-12.3); Monocytes Absolute Auto 0.2 X10*3/uL (0.1-1.2); Monocytes Percent Auto 6.5 % (2-11); Neutrophils Absolute Auto 2.6 x10*3/uL (2.0-8.3); Neutrophils Percent Auto 69.7 % (45-73); Platelet Count 139 X10*3/uL (160-400); Red Blood Count 4.07 X10*6/uL (4.20-5.50); Red Cell Distribution Width 13.7 % (11.0-16.0); White Blood Count 3.7 X10*3/uL (4.8-10.8)
[2022-12-30 07:05] LABS: Anion Gap 18 (12-20); Blood Urea Nitrogen 12 mg/dL (9-16); Calcium 8.7 mg/dL (8.4-10.2); Carbon Dioxide 22 mmol/L (22-29); Chloride 100 mmol/L (96-108); Creatinine Clr Calc Pharmacy 51.9; Estimated Glomerular Filt Rate 52; Glucose Random 282 mg/dL (60-115); Potassium 3.9 mmol/L (3.3-5.1); Sodium 136 mmol/L (135-145)
[2022-12-30 07:51] LABS: Glucose, Whole Blood 314 mg/dL (60-115)
[2022-12-30 08:00] VITALS: BP 119/66; PULSE 92; RESP 18; TEMP 36.6; O2SAT 87
[2022-12-30] MEDS: amLODIPine Besylate 5 MG TABLET PO (08:19)
[2022-12-30] MEDS: Gabapentin 300 MG CAPSULE 900 MG PO ×3 (08:19→20:03)
[2022-12-30] MEDS: Aspirin Enteric Coated 81 MG TABLET.DR PO (08:19)
[2022-12-30] MEDS: PHENobarbitaL 30 MG TABLET PO ×2 (08:19→20:04)
[2022-12-30] MEDS: Nicotine 7 MG PATCH.TD24 TRANSDERMA (08:19)
[2022-12-30] MEDS: 0.9 % Sodium Chloride Flush 3 ML SYRINGE IVFLUSH ×3 (08:25→20:05)
[2022-12-30] MEDS: Insulin Lispro 100 UNIT/ML 3 ML VIAL SUBCUT ×5 (08:25→20:04)
[2022-12-30] MEDS: Acetaminophen 325 MG TABLET 650 MG PO ×2 (09:06→17:27)
[2022-12-30] MEDS: Insulin Glargine,Hum.rec.anlog 100 UNIT/ML 10 ML VIAL 12 UNIT SUBCUT (09:07)
[2022-12-30] MEDS: methADONE HCl 20 MG/2 ML ORAL.CONC 135 MG PO (09:32)
[2022-12-30 11:11] LABS: Glucose, Whole Blood 350 mg/dL (60-115)
[2022-12-30] MEDS: Enoxaparin Sodium 40 MG/0.4 ML SYRINGE SUBCUT (12:23)
--- NOTE | 2022-12-30 14:36 | P.PNIM_ITS ---
Subjective Subjective Date of Service: 12/30/22 Interval History: Seen and evaluated this morning Feels weak and tired reporting tremors Denies any fever or chills Review of Systems Review of Systems: Yes all other systems are reviewed and are negative Physical Exam Vital Signs: Vital Signs: Last Vital Signs Temp 97.8 F 12/30/22 08:00 Pulse 92 12/30/22 08:00 Resp 18 12/30/22 08:00 BP 119/66 12/30/22 08:00 Pulse Ox 87 L 12/30/22 08:00 O2 Del Method Room Air 12/30/22 08:00 O2 Flow Rate 2 12/29/22 23:22 Oxygen Flow Rate 2 12/29/22 05:39 BMI result Body Mass Index 32.8 Const: Other: Constitutional : Awake, interactive, not in distress Neck : Normal inspection, Supple Cardiovascular : RRR, no JVP, no lower extremity edema Respiratory : good bilateral air entry, no crackles, wheezes or rhonchi Gastrointestinal: soft, lax, Normal bowel sounds, Non tender Skin : Warm, Dry Neurological : Alert & oriented x3, anxious , No focal deficit , fine tremors in upper extremities Objective Data Active Medications Acetaminophen (Acetaminophen 325 Mg Tablet) 650 mg PO Q6H PRN PRN Reason: Pain, Mild (Pain Scale 1-3) Last Admin: 12/30/22 09:06 Dose: 650 mg Documented By: JESUSITA Albuterol Sulfate (Albuterol Sulfate 90 Mcg 8 Gm Inhaler) 2 puff INHALE Q6H PRN PRN Reason: for wheezing Albuterol/Ipratropium (Albuterol/Iprat 2.5/0.5mg 3 Ml Ampul.Neb) 3 ml INHALE Q4H PRN PRN Reason: shortness of breath or wheezing Amlodipine Besylate (Amlodipine Besylate 5 Mg Tablet) 5 mg PO DAILY COUNTS INCLUDE 234 BEDS AT THE [facility]; Protocol Last Admin: 12/30/22 08:19 Dose: 5 mg Documented By: JESUSITA Aspirin (Aspirin Enteric Coated 81 Mg Tablet.) 81 mg PO DAILY COUNTS INCLUDE 234 BEDS AT THE [facility] Last Admin: 12/30/22 08:19 Dose: 81 mg Documented By: JESUSITA Dextrose (Dextrose 50 % 25 Gm/50 Ml Syringe) 25 gm IVPUSH Q30M PRN PRN Reason: BG < 70 Dextrose (Dextrose 50 % 25 Gm/50 Ml Syringe) 25 gm IVPUSH Q15M PRN; Protocol PRN Reason: per Hypoglycemia Standing Ord. Docusate Sodium (Docusate Sodium 100 Mg Capsule) 100 mg PO DAILY PRN PRN Reason: Constipation Enoxaparin Sodium (Enoxaparin Sodium 40 Mg/0.4 Ml Syringe) 40 mg SUBCUT Q24H COUNTS INCLUDE 234 BEDS AT THE [facility] Last Admin: 12/30/22 12:23 Dose: 40 mg Documented By: JESUSITA Gabapentin (Gabapentin 300 Mg Capsule) 900 mg PO TID COUNTS INCLUDE 234 BEDS AT THE [facility] Last Admin: 12/30/22 08:19 Dose: 900 mg Documented By: JESUSITA Glucose (Glucose Gel 15 Gm Gel..Gram.) 15 gm PO Q15M PRN; Protocol PRN Reason: per Hypoglycemia Standing Ord. Lactated Ringer's (Lr) 1,000 mls @ 100 mls/hr IVCONT .Q10H COUNTS INCLUDE 234 BEDS AT THE [facility] Last Admin: 12/30/22 12:41 Dose: 100 mls/hr Documented By: JESUSITA Insulin Glargine (Insulin Glargine,Hum.Rec.Anlog 100 Unit/Ml 10 Ml Vial) 12 unit SUBCUT DAILY COUNTS INCLUDE 234 BEDS AT THE [facility] Last Admin: 12/30/22 09:07 Dose: 12 unit Documented By: JESUSITA Insulin Human Lispro (Insulin Lispro 100 Unit/Ml 3 Ml Vial) 0 unit SUBCUT QIDACHS COUNTS INCLUDE 234 BEDS AT THE [facility]; Protocol Last Admin: 12/30/22 12:23 Dose: 8 unit Documented By: JESUSITA Methadone HCl (Methadone Hcl 20 Mg/2 Ml Oral.Conc) 135 mg PO DAILY COUNTS INCLUDE 234 BEDS AT THE [facility] Last Admin: 12/30/22 09:32 Dose: 135 mg Documented By: JESUSITA Mirtazapine (Mirtazapine 30 Mg Tablet) 30 mg PO BEDTIME COUNTS INCLUDE 234 BEDS AT THE [facility] Last Admin: 12/29/22 22:29 Dose: 30 mg Documented By: BENJAMIN Nicotine (Nicotine 7 Mg Patch.Td24) 7 mg TRANSDERMA DAILY COUNTS INCLUDE 234 BEDS AT THE [facility] Last Admin: 12/30/22 08:19 Dose: 7 mg Documented By: JESUSITA Omeprazole (Omeprazole 40 Mg Capsule.Dr) 40 mg PO DAILY@0630 COUNTS INCLUDE 234 BEDS AT THE [facility] Last Admin: 12/30/22 05:39 Dose: 40 mg Documented By: HEIDI Ondansetron HCl (Ondansetron Hcl 4 Mg/2 Ml Vial) 4 mg IVPUSH Q8H PRN PRN Reason: Nausea and Vomiting Pharmacy Consult (Consult Rx Perform Med Rec) 1 each MISCELLANE ONCE PRN PRN Reason: Consult order Pharmacy Consult (Consult Rx Etoh Phenob Im/Po) 1 each MISCELLANE ONCE PRN; Protocol PRN Reason: Consult order Phenobarbital (Phenobarbital 30 Mg Tablet) 30 mg PO BID COUNTS INCLUDE 234 BEDS AT THE [facility]; Protocol Stop: 12/31/22 21:01 Last Admin: 12/30/22 08:19 Dose: 30 mg Documented By: JESUSITA Phenobarbital (Phenobarbital 15 Mg Tablet) 15 mg PO BID COUNTS INCLUDE 234 BEDS AT THE [facility]; Protocol Stop: 01/02/23 21:01 Phenobarbital (Phenobarbital 15 Mg Tablet) 15 mg PO DAILY COUNTS INCLUDE 234 BEDS AT THE [facility]; Protocol Stop: 01/04/23 09:01 Polyethylene Glycol (Polyethylene Glycol 3350 17 Gm Powd.Pack) 17 gm PO DAILY PRN PRN Reason: Constipation Prazosin HCl (Prazosin Hcl 1 Mg Capsule) 3 mg PO BEDTIME COUNTS INCLUDE 234 BEDS AT THE [facility]; Protocol Last Admin: 12/29/22 22:29 Dose: 3 mg Documented By: BENJAMIN Quetiapine Fumarate (Quetiapine Fumarate 25 Mg Tablet) 12.5 mg PO Q4H PRN PRN Reason: anxiety Sodium Chloride (0.9 % Sodium Chloride Flush 3 Ml Syringe) 3 ml IVFLUSH QSHIFT COUNTS INCLUDE 234 BEDS AT THE [facility] Last Admin: 12/30/22 08:25 Dose: 3 ml Documented By: JESUSITA Labs 12/30/22 05:55 12/30/22 05:55 Labs: Laboratory Results - last 24 hr 12/29/22 12/29/22 12/29/22 16:01 18:04 20:39 MCV MCH MCHC RDW Plt Count MPV Immature Gran % (Auto) Neut % (Auto) Lymph % (Auto) [place] % (Auto) Eos % (Auto) Baso % (Auto) Lymph # (Auto) [place] # (Auto) Eos # (Auto) Baso # (Auto) Abs Immat Gran (auto) Absolute Neuts (auto) Absolute Nucleated RBC Nucleated RBC % (auto) Anion Gap Estim Creat Clear Calc Estimated GFR POC Glucose 303 H 378 H* 253 H Random Glucose Calcium Urine Color Urine Appearance Urine pH Ur Specific [place] Urine Protein Urine Glucose (UA) Urine Ketones Urine Blood Urine Nitrite Ur Leukocyte Esterase Urine RBC Urine WBC Ur Squamous Epith Cells Urine Bacteria Hyaline Casts Urine Yeast Urine Opiates Screen Urine Fentanyl Screen Ur Barbiturates Screen Ur Phencyclidine Scrn Ur Amphetamines Screen U Benzodiazepines Scrn Urine Cocaine Screen U Marijuana (THC) Screen 12/30/22 12/30/22 12/30/22 05:35 05:35 05:55 MCV 101.2 H MCH 31.4 MCHC 31.1 RDW 13.7 Plt Count 139 L MPV 11.1 Immature Gran % (Auto) 0.8 H Neut % (Auto) 69.7 Lymph % (Auto) 20.3 [place] % (Auto) 6.5 Eos % (Auto) 1.9 Baso % (Auto) 0.8 Lymph # (Auto) 0.8 L [place] # (Auto) 0.2 Eos # (Auto) 0.1 Baso # (Auto) 0.0 Abs Immat Gran (auto) 0.03 Absolute Neuts (auto) 2.6 Absolute Nucleated RBC 0.000 Nucleated RBC % (auto) 0.0 Anion Gap Estim Creat Clear Calc Estimated GFR POC Glucose Random Glucose Calcium Urine Color Yellow Urine Appearance Clear Urine pH 6.0 Ur Specific [place] 1.025 Urine Protein 30 (1+) H Urine Glucose (UA) >=1000 H Urine Ketones 80 Urine Blood Moderate (2+) H Urine Nitrite Negative Ur Leukocyte Esterase Negative Urine RBC 3-5 H Urine WBC 6-10 H Ur Squamous Epith Cells 0-2 Urine Bacteria 4+ Hyaline Casts 0-2 Urine Yeast Present Urine Opiates Screen Not Detected Urine Fentanyl Screen Not Detected Ur Barbiturates Screen POSITIVE H Ur Phencyclidine Scrn Not Detected Ur Amphetamines Screen Not Detected U Benzodiazepines Scrn Not Detected Urine Cocaine Screen Not Detected U Marijuana (THC) Screen POSITIVE H 12/30/22 12/30/22 12/30/22 05:55 07:37 11:07 MCV MCH MCHC RDW Plt Count MPV Immature Gran % (Auto) Neut % (Auto) Lymph % (Auto) [place] % (Auto) Eos % (Auto) Baso % (Auto) Lymph # (Auto) [place] # (Auto) Eos # (Auto) Baso # (Auto) Abs Immat Gran (auto) Absolute Neuts (auto) Absolute Nucleated RBC Nucleated RBC % (auto) Anion Gap 18 Estim Creat Clear Calc 51.9 Estimated GFR 52 POC Glucose 314 H 350 H* Random Glucose 282 H Calcium 8.7 Urine Color Urine Appearance Urine pH Ur Specific [place] Urine Protein Urine Glucose (UA) Urine Ketones Urine Blood Urine Nitrite Ur Leukocyte Esterase Urine RBC Urine WBC Ur Squamous Epith Cells Urine Bacteria Hyaline Casts Urine Yeast Urine Opiates Screen Urine Fentanyl Screen Ur Barbiturates Screen Ur Phencyclidine Scrn Ur Amphetamines Screen U Benzodiazepines Scrn Urine Cocaine Screen U Marijuana (THC) Screen Assessment and Plan (1) DKA (diabetic ketoacidosis): Status: Acute (2) Medical non-compliance: Status: Acute (3) Diabetes mellitus with coincident hypertension: Status: Acute (4) Alcohol withdrawal: Status: Acute Plan 57 year old female with history of htn, COPD on 2L supplemental O2 prn, opioid depedence on methadone, polysubstance abuse, GERD, aortic stenosis, cirrhosis, history alcohol abuse, controlled type 2 diabetes, anxiety?admitted for further management of DKA and toxic metabolic encephalopathy. #DKA in uncontrolled type 2 DM Gap closed HbA1c >14 related to medication noncompliance and substance use Increase Lantus to 20 Restart Metformin diabetic diet sliding scale #Acute kidney injury Resolved Continue IVF Follow BMP # acute toxic metabolic encephalopathy 2/2 Alcohol withdrawal Improving reports drinking Fireball daily , large amount she said but no specification urine drug screen +ve for THC Keep on CIWA Continue phenobarbital protocol Addiction med consult #Acute gastritis likely 2/[address] abd/pelvis negative for pancreatitis omeprazole 40mg carafate QID #Acute constipation miralax, docusate # Hx polysubstance abuse with opioid dependence continue methadone addiction medicine consult # COPD no acute exacerbation continue home inhalers, albuterol p.r.n. # hypertension blood pressure is reasonably controlled continue home antihypertensives DVT prophylaxis Lovenox Full code Patient requires inpatient stay overnight for better control of blood sugare, altered mentaiton and alcohol withdrawal pending safe discharge plan Time Spent With Patient Time: Total time managing care of this patient today ____ minutes. Quality Stroke Does the patient have a stroke diagnosis?: No VTE Prior VTE?: No VTE Risk Level:: Medical - moderate - high VTE Device Contraindication: Treatment Not Indicated VTE Drug Contraindication: N/A - Med Ordered
[2022-12-30 15:20] VITALS: BP 100/54; PULSE 92; RESP 18; TEMP 36.9; O2SAT 92
[2022-12-30] MEDS: Insulin Glargine,Hum.rec.anlog 100 UNIT/ML 10 ML VIAL 8 UNIT SUBCUT (15:56)
[2022-12-30] MEDS: metFORMIN HCl 500 MG TABLET PO ×2 (15:56→20:05)
[2022-12-30 16:03] VITALS: BP 100/54; PULSE 92; O2SAT 92
[2022-12-30 16:34] LABS: Glucose, Whole Blood 387 mg/dL (60-115)
[2022-12-30] MEDS: Sucralfate 1 GM TABLET PO ×2 (17:25→22:47)
[2022-12-30 19:31] VITALS: BP 121/69; PULSE 86; RESP 18; TEMP 36.4; O2SAT 95
[2022-12-30 19:41] LABS: Glucose, Whole Blood 309 mg/dL (60-115)
[2022-12-30] MEDS: Prazosin HCL 1 MG CAPSULE 3 MG PO (20:04)
[2022-12-30] MEDS: ondansetron HCL 4 MG/2 ML VIAL IVPUSH (20:05)
[2022-12-30] MEDS: Mirtazapine 30 MG TABLET PO (20:05)
[2022-12-31] MEDS: Acetaminophen 325 MG TABLET 650 MG PO ×3 (03:07→22:06)
[2022-12-31] MEDS: Lactated Ringers 1,000 ML 100 ML IVCONT (03:48)
[2022-12-31] MEDS: Omeprazole 40 MG CAPSULE.DR PO (05:51)
[2022-12-31] MEDS: Albuterol/Iprat 2.5/0.5MG 3 ML AMPUL.NEB INHALE (06:46)
[2022-12-31 06:48] VITALS: PULSE 89; RESP 12; O2SAT 95
[2022-12-31 07:21] LABS: Hematocrit 39.8 % (37.0-47.0); Hemoglobin 12.3 g/dl (12.0-16.0); Mean Corpuscular HGB Conc 30.9 g/dl (31.0-35.0); Mean Corpuscular Hemoglobin 30.7 pg (27.0-33.0); Mean Corpuscular Volume 99.3 fL (80.0-98.0); Mean Platelet Volume 10.9 fL (9.4-12.3); Platelet Count 143 X10*3/uL (160-400); Red Blood Count 4.01 X10*6/uL (4.20-5.50); Red Cell Distribution Width 13.6 % (11.0-16.0); White Blood Count 3.8 X10*3/uL (4.8-10.8)
[2022-12-31] MEDS: ondansetron HCL 4 MG/2 ML VIAL IVPUSH ×2 (07:39→20:49)
[2022-12-31 07:41] VITALS: BP 100/71; PULSE 100; RESP 18; TEMP 37; O2SAT 92
[2022-12-31 07:46] LABS: Anion Gap 12 (12-20); Blood Urea Nitrogen 14 mg/dL (9-16); Calcium 9.4 mg/dL (8.4-10.2); Carbon Dioxide 27 mmol/L (22-29); Chloride 101 mmol/L (96-108); Creatinine Clr Calc Pharmacy 70.7; Estimated Glomerular Filt Rate > 60; Glucose Random 364 mg/dL (60-115); Potassium 3.4 mmol/L (3.3-5.1); Sodium 137 mmol/L (135-145)
[2022-12-31 07:51] LABS: Glucose, Whole Blood 344 mg/dL (60-115)
[2022-12-31] MEDS: Nicotine 7 MG PATCH.TD24 TRANSDERMA (07:54)
[2022-12-31] MEDS: metFORMIN HCl 500 MG TABLET PO ×2 (07:54→22:05)
[2022-12-31] MEDS: Gabapentin 300 MG CAPSULE 900 MG PO ×3 (07:54→22:04)
[2022-12-31] MEDS: Insulin Lispro 100 UNIT/ML 3 ML VIAL SUBCUT ×4 (07:55→20:53)
[2022-12-31] MEDS: amLODIPine Besylate 5 MG TABLET PO (07:55)
[2022-12-31] MEDS: Sucralfate 1 GM TABLET PO ×4 (07:55→22:05)
[2022-12-31] MEDS: Aspirin Enteric Coated 81 MG TABLET.DR PO (07:55)
[2022-12-31] MEDS: PHENobarbitaL 30 MG TABLET PO ×2 (07:55→22:04)
[2022-12-31] MEDS: Insulin Glargine,Hum.rec.anlog 100 UNIT/ML 10 ML VIAL 25 UNIT SUBCUT (07:56)
[2022-12-31] MEDS: methADONE HCl 20 MG/2 ML ORAL.CONC 135 MG PO (07:57)
[2022-12-31 11:52] LABS: Glucose, Whole Blood 391 mg/dL (60-115)
--- NOTE | 2022-12-31 11:59 | P.PNIM_ITS ---
Subjective Subjective Date of Service: 12/31/22 Physical Exam Vital Signs: Vital Signs: Last Vital Signs Temp 98.6 F 12/31/22 07:41 Pulse 100 12/31/22 07:41 Resp 18 12/31/22 07:41 BP 100/71 12/31/22 07:41 Pulse Ox 92 12/31/22 07:41 O2 Del Method Nasal Cannula 12/31/22 07:41 O2 Flow Rate 2 12/31/22 07:41 Oxygen Flow Rate 2 12/29/22 05:39 BMI result Body Mass Index 32.8 Objective Data Active Medications Acetaminophen (Acetaminophen 325 Mg Tablet) 650 mg PO Q6H PRN PRN Reason: Pain, Mild (Pain Scale 1-3) Last Admin: 12/31/22 03:07 Dose: 650 mg Documented By: LEW Albuterol Sulfate (Albuterol Sulfate 90 Mcg 8 Gm Inhaler) 2 puff INHALE Q6H PRN PRN Reason: for wheezing Albuterol/Ipratropium (Albuterol/Iprat 2.5/0.5mg 3 Ml Ampul.Neb) 3 ml INHALE Q4H PRN PRN Reason: shortness of breath or wheezing Last Admin: 12/31/22 06:46 Dose: 3 ml Documented By: ASHOK Amlodipine Besylate (Amlodipine Besylate 5 Mg Tablet) 5 mg PO DAILY [facility]; Protocol Last Admin: 12/31/22 07:55 Dose: 5 mg Documented By: KIMBERLEY Aspirin (Aspirin Enteric Coated 81 Mg Tablet.Dr) 81 mg PO DAILY [facility] Last Admin: 12/31/22 07:55 Dose: 81 mg Documented By: KIMBERLEY Dextrose (Dextrose 50 % 25 Gm/50 Ml Syringe) 25 gm IVPUSH Q30M PRN PRN Reason: BG < 70 Dextrose (Dextrose 50 % 25 Gm/50 Ml Syringe) 25 gm IVPUSH Q15M PRN; Protocol PRN Reason: per Hypoglycemia Standing Ord. Docusate Sodium (Docusate Sodium 100 Mg Capsule) 100 mg PO DAILY PRN PRN Reason: Constipation Enoxaparin Sodium (Enoxaparin Sodium 40 Mg/0.4 Ml Syringe) 40 mg SUBCUT Q24H [facility] Last Admin: 12/30/22 12:23 Dose: 40 mg Documented By: HO.MCDONOH Gabapentin (Gabapentin 300 Mg Capsule) 900 mg PO TID [facility] Last Admin: 12/31/22 07:54 Dose: 900 mg Documented By: KIMBERLEY Glucose (Glucose Gel 15 Gm Gel..Gram.) 15 gm PO Q15M PRN; Protocol PRN Reason: per Hypoglycemia Standing Ord. Insulin Glargine (Insulin Glargine,Hum.Rec.Anlog 100 Unit/Ml 10 Ml Vial) 25 unit SUBCUT DAILY [facility] Last Admin: 12/31/22 07:56 Dose: 25 unit Documented By: KIMBERLEY Insulin Human Lispro (Insulin Lispro 100 Unit/Ml 3 Ml Vial) 0 unit SUBCUT QIDACHS [facility]; Protocol Last Admin: 12/31/22 07:55 Dose: 8 unit Documented By: KIMBERLEY Metformin HCl (Metformin Hcl 500 Mg Tablet) 500 mg PO BID [facility] Last Admin: 12/31/22 07:54 Dose: 500 mg Documented By: KIMBERLEY Methadone HCl (Methadone Hcl 20 Mg/2 Ml Oral.Conc) 135 mg PO DAILY [facility] Last Admin: 12/31/22 07:57 Dose: 135 mg Documented By: KIMBERLEY Mirtazapine (Mirtazapine 30 Mg Tablet) 30 mg PO BEDTIME [facility] Last Admin: 12/30/22 20:05 Dose: 30 mg Documented By: CHUNG Nicotine (Nicotine 7 Mg Patch.Td24) 7 mg TRANSDERMA DAILY [facility] Last Admin: 12/31/22 07:54 Dose: 7 mg Documented By: KIMBERLEY Omeprazole (Omeprazole 40 Mg Capsule.Dr) 40 mg PO DAILY@0630 [facility] Last Admin: 12/31/22 05:51 Dose: 40 mg Documented By: LEW Ondansetron HCl (Ondansetron Hcl 4 Mg/2 Ml Vial) 4 mg IVPUSH Q8H PRN PRN Reason: Nausea and Vomiting Last Admin: 12/31/22 07:39 Dose: 4 mg Documented By: KIMBERLEY Pharmacy Consult (Consult Rx Perform Med Rec) 1 each MISCELLANE ONCE PRN PRN Reason: Consult order Pharmacy Consult (Consult Rx Etoh Phenob Im/Po) 1 each MISCELLANE ONCE PRN; Protocol PRN Reason: Consult order Phenobarbital (Phenobarbital 30 Mg Tablet) 30 mg PO BID [facility]; Protocol Stop: 12/31/22 21:01 Last Admin: 12/31/22 07:55 Dose: 30 mg Documented By: KIMBERLEY Phenobarbital (Phenobarbital 15 Mg Tablet) 15 mg PO BID [facility]; Protocol Stop: 01/02/23 21:01 Phenobarbital (Phenobarbital 15 Mg Tablet) 15 mg PO DAILY [facility]; Protocol Stop: 01/04/23 09:01 Polyethylene Glycol (Polyethylene Glycol 3350 17 Gm Powd.Pack) 17 gm PO DAILY PRN PRN Reason: Constipation Prazosin HCl (Prazosin Hcl 1 Mg Capsule) 3 mg PO BEDTIME [facility]; Protocol Last Admin: 12/30/22 20:04 Dose: 3 mg Documented By: CHUNG Quetiapine Fumarate (Quetiapine Fumarate 25 Mg Tablet) 12.5 mg PO Q4H PRN PRN Reason: anxiety Sodium Chloride (0.9 % Sodium Chloride Flush 3 Ml Syringe) 3 ml IVFLUSH QSHIFT [facility] Last Admin: 12/31/22 07:57 Dose: Not Given Documented By: KIMBERLEY Non-Admin Reason: IV Running Sucralfate (Sucralfate 1 Gm Tablet) 1 gm PO QIDACHS [facility] Last Admin: 12/31/22 07:55 Dose: 1 gm Documented By: KIMBERLEY Labs 12/31/22 05:55 12/31/22 05:55 Labs: Laboratory Results - last 24 hr 12/30/22 12/30/22 12/31/22 16:29 19:37 05:55 MCV 99.3 H MCH 30.7 MCHC 30.9 L RDW 13.6 Plt Count 143 L MPV 10.9 Absolute Nucleated RBC 0.000 Nucleated RBC % (auto) 0.0 Anion Gap Estim Creat Clear Calc Estimated GFR POC Glucose 387 H* 309 H Random Glucose Calcium 12/31/22 12/31/22 12/31/22 05:55 07:47 11:48 MCV MCH MCHC RDW Plt Count MPV Absolute Nucleated RBC Nucleated RBC % (auto) Anion Gap 12 Estim Creat Clear Calc 70.7 Estimated GFR > 60 POC Glucose 344 H 391 H* Random Glucose 364 H* Calcium 9.4 D Microbiology Microbiology Results: Microbiology 12/30/22 05:35 Urine Culture - Preliminary Urine clean catch - Clean Catch Midstream Culture in progress. Assessment and Plan (1) DKA (diabetic ketoacidosis): Status: Acute (2) Medical non-compliance: Status: Acute (3) Diabetes mellitus with coincident hypertension: Status: Acute (4) Alcohol withdrawal: Status: Acute Plan 57 year old female with history of htn, COPD on 2L supplemental O2 prn, opioid depedence on methadone, polysubstance abuse, GERD, aortic stenosis, cirrhosis, history alcohol abuse, controlled type 2 diabetes, anxiety?admitted for further management of DKA and toxic metabolic encephalopathy. #DKA in uncontrolled type 2 DM Resolved, HbA1c >14, blood sugars in 300s related to medication noncompliance and substance use On metformin at home, started on Lantus and insulin sliding scale, dosages adjusted, strongly recommend to follow diabetic diet, will provide teachings to administer Lantus #Acute kidney injury Likely pre renal Resolved, will DC IV fluids # acute toxic metabolic encephalopathy 2/2 Alcohol withdrawal and illicit drug use Resolved Continue phenobarbital protocol Will obtain Addiction med consult #Acute gastritis likely 2/[address] abd/pelvis negative for pancreatitis Continue omeprazole 40mg and carafate QID #Acute constipation miralax, docusate # Hx polysubstance abuse with opioid dependence continue methadone addiction medicine consult # COPD no acute exacerbation continue home inhalers, albuterol p.r.n. # hypertension blood pressure is reasonably controlled, continue Norvasc # chronic thrombocytopenia likely related to alcohol, no bleeding # leg discomfort, normal examination likely musculoskeletal, continue home medication Neurontin and tylenol # tobacco use disorder continue nicotine patch support provided DVT prophylaxis Lovenox Full code Patient requires continued inpatient stay for better blood sugar control and alcohol withdrawal Time Spent With Patient Time: Total time managing care of this patient today ____ minutes. Quality Stroke Does the patient have a stroke diagnosis?: No VTE Prior VTE?: No VTE Risk Level:: Medical - moderate - high VTE Device Contraindication: Treatment Not Indicated VTE Drug Contraindication: N/A - Med Ordered
[2022-12-31] MEDS: Enoxaparin Sodium 40 MG/0.4 ML SYRINGE SUBCUT (12:25)
[2022-12-31] MEDS: Magnesium Oxide 400 MG TABLET PO ×2 (12:25→16:02)
--- NOTE | 2022-12-31 13:37 | MHC.RECOVRN ---
T/w made contact with pt to assess interest in recovery supports, [facility]. Pt reports history of drinking every other day approx 5 shots of fireball . Reports hx of withdrawal symptoms, denies ever having seizures as a result of withdrawal. Pt expressing some interest in [facility], t/w explained the different types of medications that assist with recovery from ETOH. Harm reduction related to ETOH use discussed, pt verbalized understanding. Pt appearing tired at this time, recovery support information left with pt at the bedside, plan to follow up after she has had the chance to take a look at the materials.
--- NOTE | 2022-12-31 15:13 | MHC.CM.PN ---
Addendum entered by Christelle Nichols 12/31/22 15:19: A referral was sent to [facility]. Patient did not have a preference of [facility]NA. Original Note: Met with patient for discharge planning. PT has recommended STR at discharge. The patient was informed that [facility] was the only facility that accepts patient on Methadone. She declines STR at this time. DP home with [facility]. She will arrange for transport home.
[2022-12-31 15:30] VITALS: BP 107/60; PULSE 88; RESP 16; TEMP 36.1; O2SAT 91
[2022-12-31] MEDS: 0.9 % Sodium Chloride Flush 3 ML SYRINGE IVFLUSH ×2 (16:03→20:54)
[2022-12-31 16:17] LABS: Glucose, Whole Blood 314 mg/dL (60-115)
--- NOTE | 2022-12-31 18:27 | PM.EVENT ---
Event Note Date of Service: 12/31/22 Event Note: Addiction consult placed for patient client professional attempted to meet with patient-unable to as patient feeling unwell Will follow up Wednesday 01/03 Time Spent With Patient Time: Total time managing care of this patient today ____ minutes.
[2022-12-31 20:27] LABS: Glucose, Whole Blood 316 mg/dL (60-115)
[2022-12-31] MEDS: Prazosin HCL 1 MG CAPSULE 3 MG PO (22:05)
[2022-12-31] MEDS: Docusate Sodium 100 MG CAPSULE PO (22:06)
[2022-12-31] MEDS: Mirtazapine 30 MG TABLET PO (22:06)
[2023-01-01] VITALS: BP 103/51; PULSE 84; RESP 14; TEMP 36.1; O2SAT 93
[2023-01-01] MEDS: Omeprazole 40 MG CAPSULE.DR PO (06:12)
[2023-01-01 07:18] VITALS: BP 115/71; PULSE 84; RESP 16; TEMP 36.1; O2SAT 94
[2023-01-01 07:20] LABS: Glucose, Whole Blood 351 mg/dL (60-115)
[2023-01-01] MEDS: Nicotine 7 MG PATCH.TD24 TRANSDERMA (07:41)
[2023-01-01] MEDS: Gabapentin 300 MG CAPSULE 900 MG PO ×3 (07:41→20:11)
[2023-01-01] MEDS: PHENobarbitaL 15 MG TABLET PO ×2 (07:42→20:12)
[2023-01-01] MEDS: Aspirin Enteric Coated 81 MG TABLET.DR PO (07:42)
[2023-01-01] MEDS: Sucralfate 1 GM TABLET PO ×4 (07:42→20:11)
[2023-01-01] MEDS: Insulin Lispro 100 UNIT/ML 3 ML VIAL SUBCUT ×4 (07:43→20:26)
[2023-01-01] MEDS: Magnesium Oxide 400 MG TABLET PO ×2 (07:43→17:38)
[2023-01-01] MEDS: Insulin Glargine,Hum.rec.anlog 100 UNIT/ML 10 ML VIAL 28 UNIT SUBCUT (07:43)
[2023-01-01] MEDS: amLODIPine Besylate 5 MG TABLET PO (07:43)
[2023-01-01] MEDS: metFORMIN HCl 500 MG TABLET PO ×2 (07:44→20:16)
[2023-01-01] MEDS: methADONE HCl 20 MG/2 ML ORAL.CONC 135 MG PO (07:44)
[2023-01-01] MEDS: 0.9 % Sodium Chloride Flush 3 ML SYRINGE IVFLUSH ×3 (08:23→20:16)
[2023-01-01] MEDS: ondansetron HCL 4 MG/2 ML VIAL IVPUSH ×2 (08:46→17:42)
[2023-01-01] MEDS: Acetaminophen 325 MG TABLET 650 MG PO (09:14)
[2023-01-01 11:28] LABS: Glucose, Whole Blood 418 mg/dL (60-115)
--- NOTE | 2023-01-01 11:32 | P.PNIM_ITS ---
Subjective Subjective Date of Service: 01/01/23 Interval History: Complaining of lower extremity discomfort blood sugars and 300 range, finished 100% of breakfast complaining of nausea no abdominal pain, no diarrhea, no fevers, no chills, does minimal activity at home, no other acute issues overnight. Review of Systems All other system reviewed and negative. Physical Exam Vital Signs: Vital Signs: Last Vital Signs Temp 97.0 F 01/01/23 07:18 Pulse 84 01/01/23 07:18 Resp 16 01/01/23 07:18 BP 115/71 01/01/23 07:18 Pulse Ox 94 01/01/23 07:18 O2 Del Method Nasal Cannula 01/01/23 07:18 O2 Flow Rate 2.0 01/01/23 07:18 Oxygen Flow Rate 2 12/29/22 05:39 BMI result Body Mass Index 32.8 Const: Other: General awake alert, resting comfortably in no acute distress. Neck supple no JVD. CVS regular rate rhythm, Respiratory lungs clear to auscultation, no respiratory distress, no wheeze, no rhonchi. Gastrointestinal abdomen soft, obese, nontender, bowel sounds audible, no guard ing , no rigidity. Extremities no edema. Both lower extremity good range of motion, no redness, no swelling, bilateral normal knee examination Neuro nonfocal, moving all 4 extremity speech clear. Skin no rash Psych appropriate affect Objective Data Active Medications Acetaminophen (Acetaminophen 325 Mg Tablet) 650 mg PO Q6H PRN PRN Reason: Pain, Mild (Pain Scale 1-3) Last Admin: 01/01/23 09:14 Dose: 650 mg Documented By: KIMBERLEY Albuterol Sulfate (Albuterol Sulfate 90 Mcg 8 Gm Inhaler) 2 puff INHALE Q6H PRN PRN Reason: for wheezing Albuterol/Ipratropium (Albuterol/Iprat 2.5/0.5mg 3 Ml Ampul.Neb) 3 ml INHALE Q4H PRN PRN Reason: shortness of breath or wheezing Last Admin: 12/31/22 06:46 Dose: 3 ml Documented By: ASHOK Amlodipine Besylate (Amlodipine Besylate 5 Mg Tablet) 5 mg PO DAILY NAYE; Protocol Last Admin: 01/01/23 07:43 Dose: 5 mg Documented By: KIMBERLEY Aspirin (Aspirin Enteric Coated 81 Mg Tablet.Dr) 81 mg PO DAILY [facility] Last Admin: 01/01/23 07:42 Dose: 81 mg Documented By: KIMBERLEY Dextrose (Dextrose 50 % 25 Gm/50 Ml Syringe) 25 gm IVPUSH Q30M PRN PRN Reason: BG < 70 Dextrose (Dextrose 50 % 25 Gm/50 Ml Syringe) 25 gm IVPUSH Q15M PRN; Protocol PRN Reason: per Hypoglycemia Standing Ord. Docusate Sodium (Docusate Sodium 100 Mg Capsule) 100 mg PO DAILY PRN PRN Reason: Constipation Last Admin: 12/31/22 22:06 Dose: 100 mg Documented By: DEZ Enoxaparin Sodium (Enoxaparin Sodium 40 Mg/0.4 Ml Syringe) 40 mg SUBCUT Q24H [facility] Last Admin: 12/31/22 12:25 Dose: 40 mg Documented By: KIMBERLEY Gabapentin (Gabapentin 300 Mg Capsule) 900 mg PO TID [facility] Last Admin: 01/01/23 07:41 Dose: 900 mg Documented By: KIMBERLEY Glucose (Glucose Gel 15 Gm Gel..Gram.) 15 gm PO Q15M PRN; Protocol PRN Reason: per Hypoglycemia Standing Ord. Insulin Glargine (Insulin Glargine,Hum.Rec.Anlog 100 Unit/Ml 10 Ml Vial) 28 unit SUBCUT DAILY [facility] Last Admin: 01/01/23 07:43 Dose: 28 unit Documented By: KIMBERLEY Insulin Human Lispro (Insulin Lispro 100 Unit/Ml 3 Ml Vial) 0 unit SUBCUT QIDACHS [facility]; Protocol Last Admin: 01/01/23 07:43 Dose: 14 unit Documented By: KIMBERLEY [facility] ([facility] 400 Mg Tablet) [facility] Last Admin: 01/01/23 07:43 Dose: 400 mg Documented By: KIMBERLEY Metformin HCl (Metformin Hcl 500 Mg Tablet) 500 mg PO BID [facility] Last Admin: 01/01/23 07:44 Dose: 500 mg Documented By: KIMBERLEY Methadone HCl (Methadone Hcl 20 Mg/2 Ml Oral.Conc) 135 mg PO DAILY [facility] Last Admin: 01/01/23 07:44 Dose: 135 mg Documented By: KIMBERLEY Mirtazapine (Mirtazapine 30 Mg Tablet) 30 mg PO BEDTIME [facility] Last Admin: 12/31/22 22:06 Dose: 30 mg Documented By: DEZ Nicotine (Nicotine 7 Mg Patch.Td24) 7 mg TRANSDERMA DAILY [facility] Last Admin: 01/01/23 07:41 Dose: 7 mg Documented By: KIMBERLEY Omeprazole (Omeprazole 40 Mg Capsule.Dr) 40 mg PO DAILY@0630 [facility] Last Admin: 01/01/23 06:12 Dose: 40 mg Documented By: DEZ Ondansetron HCl (Ondansetron Hcl 4 Mg/2 Ml Vial) 4 mg IVPUSH Q8H PRN PRN Reason: Nausea and Vomiting Last Admin: 01/01/23 08:46 Dose: 4 mg Documented By: KIMBERLEY Pharmacy Consult (Consult Rx Perform Med Rec) 1 each MISCELLANE ONCE PRN PRN Reason: Consult order Pharmacy Consult (Consult Rx Etoh Phenob Im/Po) 1 each MISCELLANE ONCE PRN; Protocol PRN Reason: Consult order Phenobarbital (Phenobarbital 15 Mg Tablet) 15 mg PO BID [facility]; Protocol Stop: 01/02/23 21:01 Last Admin: 01/01/23 07:42 Dose: 15 mg Documented By: KIMBERLEY Phenobarbital (Phenobarbital 15 Mg Tablet) 15 mg PO DAILY [facility]; Protocol Stop: 01/04/23 09:01 Polyethylene Glycol (Polyethylene Glycol 3350 17 Gm Powd.Pack) 17 gm PO DAILY PRN PRN Reason: Constipation Prazosin HCl (Prazosin Hcl 1 Mg Capsule) 3 mg PO BEDTIME [facility]; Protocol Last Admin: 12/31/22 22:05 Dose: 3 mg Documented By: DEZ Quetiapine Fumarate (Quetiapine Fumarate 25 Mg Tablet) 12.5 mg PO Q4H PRN PRN Reason: anxiety Sodium Chloride (0.9 % Sodium Chloride Flush 3 Ml Syringe) 3 ml IVFLUSH QSHIFT [facility] Last Admin: 01/01/23 08:23 Dose: 3 ml Documented By: KIMBERLEY Sucralfate (Sucralfate 1 Gm Tablet) 1 gm PO QIDACHS [facility] Last Admin: 01/01/23 07:42 Dose: 1 gm Documented By: KIMBERLEY Labs 12/31/22 05:55 12/31/22 05:55 Labs: Laboratory Results - last 24 hr 12/31/22 12/31/22 12/31/22 11:48 16:14 20:14 POC Glucose 391 H* 314 H 316 H 01/01/23 01/01/23 07:15 11:22 POC Glucose 351 H* 418 H* Microbiology Microbiology Results: Microbiology 12/30/22 05:35 Urine Culture - Preliminary Urine clean catch - Clean Catch Midstream Culture in progress. Assessment and Plan (1) DKA (diabetic ketoacidosis): Status: Acute (2) Medical non-compliance: Status: Acute (3) Diabetes mellitus with coincident hypertension: Status: Acute (4) Alcohol withdrawal: Status: Acute Plan 57 year old female with history of htn, COPD on 2L supplemental O2 prn, opioid depedence on methadone, polysubstance abuse, GERD, aortic stenosis, cirrhosis, history alcohol abuse, controlled type 2 diabetes, anxiety?admitted for further management of DKA and toxic metabolic encephalopathy. #DKA in uncontrolled type 2 DM Resolved, HbA1c >14, blood sugars in 300 to 400 s related to medication noncompliance and substance use On metformin at home, started on Lantus and insulin sliding scale, will increase dosages of both Lantus and ISS, strongly recommend to follow diabetic diet, receiving eachings to administer Lantus #Acute kidney injury Likely pre renal Resolved, s/p, above meds IV fluids # acute toxic metabolic encephalopathy 2/2 Alcohol withdrawal and illicit drug use Resolved Continue phenobarbital protocol, being followed by Addiction Team #Acute gastritis likely 2/[address] abd/pelvis negative for pancreatitis Continue omeprazole 40mg and carafate QID #Acute constipation Resolved continue miralax, docusate # Hx polysubstance abuse with opioid dependence continue methadone, being followed by Addiction Team # COPD no acute exacerbation continue home inhalers, albuterol p.r.n. # hypertension blood pressure is reasonably controlled, continue Norvasc # chronic thrombocytopenia likely related to alcohol, no bleeding # leg discomfort, normal examination likely musculoskeletal, continue home medication Neurontin and tylenol, physical therapy not done due to high blood sugars, recommend out of bed to chair and ambulation with staff # tobacco use disorder continue nicotine patch support provided DVT prophylaxis Lovenox Full code Patient requires continued inpatient stay for better blood sugar control and alcohol withdrawal Time Spent With Patient Time: Total time managing care of this patient today ____ minutes. Quality Stroke Does the patient have a stroke diagnosis?: No VTE Prior VTE?: No VTE Risk Level:: Medical - moderate - high VTE Device Contraindication: Treatment Not Indicated VTE Drug Contraindication: N/A - Med Ordered
[2023-01-01] MEDS: Enoxaparin Sodium 40 MG/0.4 ML SYRINGE SUBCUT (11:47)
[2023-01-01 15:54] VITALS: BP 105/56; PULSE 94; RESP 18; TEMP 36.6; O2SAT 95
[2023-01-01 16:18] LABS: Glucose, Whole Blood 291 mg/dL (60-115)
[2023-01-01] MEDS: Albuterol Sulfate 90 MCG 8 GM INHALER 2 PUFF INHALE (20:10)
[2023-01-01] MEDS: Prazosin HCL 1 MG CAPSULE 3 MG PO (20:11)
[2023-01-01] MEDS: Mirtazapine 30 MG TABLET PO (20:12)
[2023-01-01 20:13] VITALS: BP 161/84; PULSE 100; RESP 17; TEMP 36.4; O2SAT 94
[2023-01-01 20:24] LABS: Glucose, Whole Blood 283 mg/dL (60-115)
[2023-01-01 23:10] VITALS: BP 133/77; PULSE 88; RESP 17; TEMP 36.6; O2SAT 95
[2023-01-02] MEDS: ondansetron HCL 4 MG/2 ML VIAL IVPUSH (01:55)
[2023-01-02] MEDS: Omeprazole 40 MG CAPSULE.DR PO (05:36)
[2023-01-02] MEDS: Albuterol Sulfate 90 MCG 8 GM INHALER 2 PUFF INHALE (05:43)
[2023-01-02 07:20] VITALS: BP 118/62; PULSE 95; RESP 17; TEMP 36; O2SAT 96
[2023-01-02 07:21] LABS: Glucose, Whole Blood 324 mg/dL (60-115)
[2023-01-02] MEDS: Insulin Lispro 100 UNIT/ML 3 ML VIAL SUBCUT ×2 (07:53→12:37)
[2023-01-02] MEDS: Insulin Glargine,Hum.rec.anlog 100 UNIT/ML 10 ML VIAL 35 UNIT SUBCUT (07:53)
[2023-01-02] MEDS: Magnesium Oxide 400 MG TABLET PO (07:54)
[2023-01-02] MEDS: PHENobarbitaL 15 MG TABLET PO (07:54)
[2023-01-02] MEDS: Nicotine 7 MG PATCH.TD24 TRANSDERMA (07:54)
[2023-01-02] MEDS: Sucralfate 1 GM TABLET PO ×2 (07:55→12:38)
[2023-01-02] MEDS: methADONE HCl 20 MG/2 ML ORAL.CONC 135 MG PO (07:55)
[2023-01-02] MEDS: amLODIPine Besylate 5 MG TABLET PO (07:55)
[2023-01-02] MEDS: Aspirin Enteric Coated 81 MG TABLET.DR PO (07:55)
[2023-01-02] MEDS: metFORMIN HCl 500 MG TABLET PO (07:55)
[2023-01-02] MEDS: Gabapentin 300 MG CAPSULE 900 MG PO (07:55)
[2023-01-02] MEDS: 0.9 % Sodium Chloride Flush 3 ML SYRINGE IVFLUSH (07:56)
--- NOTE | 2023-01-02 11:12 | P.DS_ITS ---
DS: Providers Provider Date of Service: 01/02/23 Date of admission: 12/29/22 12:16 Primary care physician: Jair Lemus MD Consults: 12/31/22 12:10 Addiction Medicine Routine Consulting Provider: Addiction Covering Reason for consultation: etoh/illicit drugs Has provider been notified: No DS: Diagnosis Discharge Diagnosis (1) DKA (diabetic ketoacidosis): Status: Acute (2) Medical non-compliance: Status: Acute (3) Diabetes mellitus with coincident hypertension: Status: Acute (4) Alcohol withdrawal: Status: Acute DS: Summary Hospital Course Hospital Course: Date of Service: 12/29/22 Attending physician on admission: Jessy Shaffer Chief Complaint: abd pain, n/v 57 year old female with history of htn, COPD on 2L supplemental O2 prn, opioid depedence on methadone, polysubstance abuse, GERD, aortic stenosis, cirrhosis, history alcohol abuse, controlled type 2 diabetes, anxiety?presented to the ED for evaluation of abd pain, constipation, nausea, and feeling very unwell. States she also had two falls onto the her right side 5 days ago. She is a regu lar etoh consumer and states she drinks 6 nips fireball every other day . States she no longer uses iliicit drugs. However, during exam patient intermittently somnolant but arousable and able to answer questions.? On arrival, vitals stable though patient is slightly tachycardic to 107.? There is no leukocytosis or anemia.? Initial creatinine 1.77, BUN 18, sodium 131, chloride 90, potassium 4.8, CO2 17, anion gap 29 with glucose 564.? Beta hydroxybutyrate 7.48.? Initial pH 7.28, pCO2 35, PO2 112, bicarb 17.? Patient given 5 units regular insulin and started on insulin drip while in the ED.? She was also given LR and D5 NS in conjunction with this.? She was successfully weaned from insulin drip been given 10 units insulin glargine.? ABG corrected to pH 7.35, pCO2 34, bicarb 19.? Creatinine improved to 1.14, BUN 14.? Sodium 138, potassium 4.0, anion gap closing 22. POC glucose on admission 220. UA and Urine drug tox pending, ethyl alcohol level undetectable.? She is complaining some mild epigastric pain.? Lipase slightly elevated at 170.? However at CT abdomen/pelvis without any acute finding, pancreas unremarkable. No ongoing n/v. hospital course; 57 year old female with history of htn, COPD on 2L supplemental O2 prn, opioid depedence on methadone, polysubstance abuse, GERD, aortic stenosis, cirrhosis, history alcohol abuse, controlled type 2 diabetes, anxiety?admitted for further management of DKA and toxic metabolic encephalopathy. #DKA in uncontrolled type 2 DM, admitted to medical floor treated with IV fluids and insulin blood sugars improved to 203 100 range, HbA1c >14, patient noncompliance with her medications recommend to continue metformin, started on Lantus 40 units and Humalog 10 units pre meal tid,strongly recommend to follow diabetic diet, patient previously was on Lantus but stop using it, educated patient about importance of following diabetic diet and monitoring blood sugars. #Acute kidney injury resolved with IV fluid was likely related to hyperglycemia and dehydration. # acute toxic metabolic encephalopathy Resolved was likely 2/2 Alcohol withdrawal and illicit drug use. #Acute gastritis likely due to alcohol use CT abdomen and pelvis unremarkable, likely due to alcohol use continue omeprazole and Carafate 4 times a day #Acute constipation ,Resolved continue miralax. # Hx polysubstance abuse with opioid dependence recommend to continue methadone. # COPD no acute exacerbation noted continue home inhalers # hypertensionstable blood pressures continue Norvasc # chronic thrombocytopenia likely related to alcohol, no bleeding noted. # leg discomfort, normal examination likely musculoskeletal, continue home medication Neurontin and tylenol. # tobacco use disorder continue nicotine patch, Counseling done. Time Spent with Patient Time attestation: Total time managing care of this patient today ____ minutes. Discharge coordination time: Greater than 30 minutes Quality: Safe Use of Opioids Does Pt have an Active Cancer Diagnosis on the Problem List?: No Quality: Stroke Does the patient have a stroke diagnosis?: No Physical Exam Vital Signs: Vital Signs: Last Vital Signs Temp 96.8 F 01/02/23 07:20 Pulse 95 01/02/23 07:20 Resp 17 01/02/23 07:20 BP 118/62 01/02/23 07:20 Pulse Ox 96 01/02/23 07:20 O2 Del Method Room Air 01/02/23 07:20 O2 Flow Rate 2 01/01/23 23:10 Oxygen Flow Rate 2 12/29/22 05:39 BMI result Body Mass Index 32.8 Const: Other: General awake alert, resting comfortably in no acute distress.? Neck? supple no JVD. CVS? regular rate rhythm, Respiratory lungs clear to auscultation, no respiratory distress, no wheeze, no rhonchi. Gastrointestinal abdomen soft, obese, nontender, bowel sounds audible, no guarding , no rigidity. Extremities no edema.? Both lower extremity good range of motion, no redness, no swelling, bilateral normal knee examination Neuro nonfocal, moving all 4 extremity speech clear. Skin no rash Psych appropriate affect DS: Data Data Completed and Pending Labs on day of discharge: Laboratory Results - last 24 hr 01/01/23 01/01/23 01/01/23 11:22 16:15 20:20 POC Glucose 418 H* 291 H 283 H 01/02/23 07:16 POC Glucose 324 H Discharge Plan Discharge Anticipated Discharge Date/Time: 01/02/23 10:35 Patient Disposition: Home Health Service Discharge Diagnosis: DKA acute kidney injury acute toxic metabolic encephalopathy alcohol use disorder Referrals: Jair Lemus MD [Primary Care Provider] - 1 Week Discharge Medications: New nicotine 7 mg/24 hr Patch 24 Hour 7 mg transdermal DAILY Qty: 30 0RF (DME) FreeStyle Lite Strips Strip Qty: 100 0RF Rx Instructions: Test four times a day or as directed. (DME) blood-glucose meter [FreeStyle Lite Meter] Kit Qty: 1 0RF Rx Instructions: As Directed alcohol swabs Pads, Medicated 1 pad TOPICAL QIDACHS Qty: 100 0RF Rx Instructions: Use four times a day or as directed. insulin glargine [Lantus Solostar U-100 Insulin] 100 unit/mL (3 mL) insulin pen 40 unit SUBCUT DAILY Qty: 15 0RF (DME) pen needle, diabetic 32 gauge x 1/4 needle Qty: 100 0RF Rx Instructions: Use four times a day or as directed. (DME) lancets [FreeStyle Lancets] 28 gauge misc Qty: 100 0RF Rx Instructions: Test four times a day or as directed. polyethylene glycol 3350 17 gram Powder In Packet 17 g PO DAILY Qty: 100 0RF sucralfate 1 gram Tablet 1 g PO QIDACHS Qty: 120 0RF insulin lispro [Humalog U-100 Insulin] 100 unit/mL Solution 10 unit subcut TIDAC Qty: 10 0RF Continued (DME) cane Device See Rx Instructions .Route Qty: 1 0RF Rx Instructions: As directed omeprazole 40 mg capsule,delayed release(DR/EC) 40 mg PO DAILY 30 Days Qty: 30 7RF aspirin 81 mg tablet,delayed release (DR/EC) 81 mg PO DAILY Qty: 30 7RF gabapentin 300 mg capsule 900 mg PO TID 30 Days Qty: 270 7RF prazosin 1 mg capsule 3 mg PO BEDTIME 30 Days Qty: 90 4RF Protocol: Hold for SBP< HOLD for SBP < : 90 mirtazapine 30 mg tablet 30 mg PO BEDTIME 30 Days Qty: 30 5RF (DME) blood-glucose meter [FreeStyle Lite Meter] Kit See Rx Instructions .Route Qty: 1 0RF Rx Instructions: As directed (DME) FreeStyle Lite Strips Strip See Rx Instructions .Route Qty: 100 2RF Rx Instructions: BID and PRN (DME) lancets [FreeStyle Lancets] 28 gauge misc See Rx Instructions .Route Qty: 100 2RF Rx Instructions: BID and PRN albuterol sulfate [Ventolin HFA] 90 mcg/actuation HFA aerosol inhaler 2 puff inhalation Q6H PRN (Reason: for wheezing) Qty: 18 2RF quetiapine 25 mg tablet 12.5 mg PO Q4H PRN (Reason: anxiety) 30 Days Qty: 30 6RF methadone [Methadone Intensol] 10 mg/mL Concentrate 135 mg PO DAILY (DME) pulse oximeter See Rx Instructions Rx Instructions: As directed amlodipine 5 mg tablet 5 mg PO DAILY 30 Days Qty: 30 7RF (DME) Oxygen Home Use Kit See Rx Instructions .ROUTE .MEDSUPPLY Qty: 1 12RF Rx Instructions: 2L nasal cannula continuous ipratropium-albuterol 0.5 mg-3 mg(2.5 mg base)/3 mL solution for nebulization 3 ml inhalation Q4H PRN (Reason: shortness of breath or wheezing) (DME) Wings Choice Plus Adult Briefs Misc See Rx Instructions .Route Qty: 60 0RF Rx Instructions: As directed metformin 500 mg tablet 500 mg PO BID Qty: 180 8RF Discontinued naproxen [Naprosyn] 500 mg tablet 500 mg PO BID PRN (Reason: pain) Qty: 60 0RF Discharge Orders: Discharge Order (Routine); Ordered 01/02/23 Ordered By: Vj Roman Diet: Diabetic diet Activity on Discharge: As tolerated Stand Alone Forms: Patient Portal Discharge page Care Plan Goals: follow diabetic diet check blood sugars before meals and at bedtime, and document in a diary. take Humalog 10 units before meals 3 times a day and take Lantus 40 units at bedtime strongly recommend to abstain from alcohol use Health Concerns: Diabetese and alcohol strongly recommend,No alcohol. Plan of Treatment: outpatient follow-up with primary care physician Assessment: as above
[2023-01-02 11:54] LABS: Glucose, Whole Blood 354 mg/dL (60-115)
--- NOTE | 2023-01-02 12:06 | MHC.CM.PN ---
Addendum entered by Christelle Nichols 01/02/23 13:17: Patient will take a lift home. Original Note: Patient is discharged today to home. New [facility] ordered for SN and PT. An O2 tank for the trip home has been arranged by Respiratory therapy. Shabbir is the patients provider. [employer] services will resume with EVELIO.
[2023-01-02] MEDS: Enoxaparin Sodium 40 MG/0.4 ML SYRINGE SUBCUT (12:38)
[2023-01-02] MEDS: Insulin Lispro 100 UNIT/ML 3 ML VIAL 10 UNIT SUBCUT (12:38)
--- NOTE | 2023-01-02 13:03 | W.MHC.F2F ---
Service Date Service Date: 01/02/23 Encounter Date of encounter: 01/02/23 Reasons for Services Signs and symptoms assessed: abdominal pain, weakness, elevated blood sugars, need blood sugar monitoring t.i.d. and at HS need diabetic teaching Reason for physical therapy: home safety and mobility and gait/transfer training Homebound: Leaving the home is medically contraindicated at this time without the asist of a device and/or another person due th the listed conditions above and below. Reason homebound: unsteady gait / fall risk and weakness related to hospital stay Homebound supporting statement: weakness, gross deconditioning impaired gait pattern and safety Certification: Based on the above findings, I certify that this patient is confined to the home and needs intermittent senior care care, physical therapy and/or speech therapy, or continues to need occupational therapy. The patient is under my care, and I have initiated the establishment of the plan of care. The patient will be followed by a physician who will periodically review the plan of care. Time Spent With Patient Time: Total time managing care of this patient today ____ minutes.
== END 2023-01-02 12:45 | disposition home health service (06) | DRG 420 ==
LOC: HO.ED 09:54 → HO.EDOVER 13:34 → HO.S3 16:34
PROVIDERS: Emergency Medicine Emergency Medical Services; Student in an Organized Health Care Education/Training Program; Admitting Provider Physician Assistant; Emergency Provider Emergency Medicine; PCP Internal Medicine; Visit Provider Hospitalist
DX: E11.10 Type 2 diabetes mellitus with ketoacidosis without coma (principal); N17.9 Acute kidney failure, unspecified; D69.59 Other secondary thrombocytopenia; K70.30 Alcoholic cirrhosis of liver without ascites; F19.10 Other psychoactive substance abuse, uncomplicated; T38.3X6A Underdosing of insulin and oral hypoglycemic [antidiabetic] drugs, initial encounter; F10.139 Alcohol abuse with withdrawal, unspecified; F32.A Depression, unspecified; K59.00 Constipation, unspecified; J44.9 Chronic obstructive pulmonary disease, unspecified; I10 Essential (primary) hypertension; K29.20 Alcoholic gastritis without bleeding; F41.9 Anxiety disorder, unspecified; E86.0 Dehydration; F17.210 Nicotine dependence, cigarettes, uncomplicated; Z71.6 Tobacco abuse counseling; Z79.84 Long term (current) use of oral hypoglycemic drugs; Z79.4 Long term (current) use of insulin; Z79.899 Other long term (current) drug therapy
CPT/HCPCS: 36415; 74019; 74177; 80048; 80053; 80307; 81001; 82010; 82803; 82947; 83036; 83690; 83735; 84484; 85025; 85027; 87086; 87088; 87186; 93005; 94640; 97162; 99285; J1650; J2405; J2560

== ENCOUNTER → 2022-12-29 12:16 | Outpatient (BNV) | payer OTHER, SELFPAY | PROVIDERS: Admitting Provider Physician Assistant; Emergency Provider Emergency Medicine; PCP Internal Medicine; Visit Provider Physician Assistant | DX: E11.10 Type 2 diabetes mellitus with ketoacidosis without coma (principal); Z91.199 Patient's noncompliance with other medical treatment and regimen due to unspecified reason; I10 Essential (primary) hypertension; F10.939 Alcohol use, unspecified with withdrawal, unspecified | CPT/HCPCS: 99223; 99233; 99239; G0180 ==

== ENCOUNTER 2023-01-06 10:40 | Outpatient (AMB) | payer OTHER, SELFPAY ==
--- NOTE | 2023-01-06 10:50 | A.OFFPC_ITS ---
Vital Signs 01/06/23 10:51 Height 5 ft Weight 180 lb BMI 35.2 BP 112/62 Blood Pressure Location Lt brachial Position Sitting Pulse 112 H Pulse Source Pulse Oximeter Pulse Oximetry (%) 98 Oxygen Delivery Method Nasal Cannula Intake Visit Reasons: Uncontrolled DM Allergies acetaminophen [Vicodin] Allergy (Unknown, Verified 01/06/23 10:51) Unknown hydrocodone [Vicodin] Allergy (Unknown, Verified 01/06/23 10:51) Unknown sumatriptan [From IMITREX] Allergy (Unknown, Verified 01/06/23 10:51) VOMITING,RASH Medication List - Last Reconciled 01/07/23 by Jair Lemus MD albuterol sulfate 90 mcg/actuation (Ventolin HFA) 2 puffs inhalation Q6H PRN alcohol swabs 1 pad topical QIDACHS amlodipine 5 mg PO DAILY 30 days aspirin 81 mg PO DAILY blood sugar diagnostic (FreeStyle Lite Strips) Test four times a day or as di rected. blood sugar diagnostic (FreeStyle Lite Strips) BID and PRN blood-glucose meter (FreeStyle Lite Meter kit) As Directed blood-glucose meter (FreeStyle Lite Meter kit) As directed cane As directed diaper,brief,adult,disposable (Wings Choice Plus Adult Briefs) As directed gabapentin 900 mg (3 x 300 mg) PO TID 30 days insulin glargine (Lantus Solostar U-100 Insulin) 40 units (0.4 mL) subcut DAILY insulin lispro (Humalog U-100 Insulin) 10 units (0.1 mL) subcut TIDAC insulin syringes (disposable) test 4 times daily ipratropium-albuterol 0.5 mg-3 mg(2.5 mg base)/3 mL 3 mL inhalation Q4H PRN lancets (FreeStyle Lancets) Test four times a day or as directed. lancets (FreeStyle Lancets) BID and PRN metformin 500 mg PO BID methadone (Methadone Intensol) 135 mg PO DAILY mirtazapine 30 mg PO BEDTIME 30 days nicotine 7 mg transdermal DAILY omeprazole 40 mg PO DAILY 30 days Oxygen Home Use 2L nasal cannula continuous pen needle, diabetic Use four times a day or as directed. pen needle, diabetic (BD Ultra-Fine Micro Pen Needle) test 4 times per day polyethylene glycol 3350 17 grams PO DAILY prazosin 3 mg See Protocol PO BEDTIME 30 days [pulse oximeter As directed] quetiapine 12.5 mg (1/2 x 25 mg) PO Q4H PRN 30 days sucralfate 1 g PO QIDACHS Tobacco use date assessed: 11/26/22 Dental Screening Dental Screen Date: 01/06/23 Did you have a dental visit in the last 12 months?: Yes Did you have a dental problem in the last 6 months where you did not have access to dental care?: No Was dental information given to patient?: Patient has dentist HPI Uncontrolled DM HPI Details DM on Rx; begun on insulin in the hospital [facility] Medical History Anxiety Anxiety and depression Cirrhosis Cocaine abuse COPD (chronic obstructive pulmonary disease) Cranial nerve dysfunction Depression Diabetes Hypertension Lightheaded Nephrolithiasis Obesity Polysubstance abuse Splenic vein thrombosis Surgical History H/O wrist surgery Family History Father No problems noted. Mother Diabetes Social History Household Members: Other Household Members Other:: son Housing: House Are you a primary career services representative to a significant other at home: No Do you presently have visiting nurse or other home services: No 75 years or older and lives alone: No Alcohol intake: current Alcohol intake frequency: a few times a week Patient Tobacco Use Status: Current everyday Tobacco user Tobacco use type: Cigarette Cigarette Packs Per Day: 1 Cigarettes Per Day: 20.0 Years Smoked: 30+ e-Cigarette/Vaping Use: Never Used Second Hand Smoke Exposure: No Substance Use Type: Marijuana service: No Current occupational status: disabled Sexual orientation: Straight/Heterosexual Gender identity: Female Cognitive needs: Yes Hearing needs: No Vision needs: No Questionnaire PHQ-9 Over the last 2 weeks, how often have you been bothered by any of the following problems? 1. Little interest or pleasure in doing things: nearly every day 2. Feeling down, depressed, or hopeless: nearly every day 3. Trouble falling or staying asleep, or sleeping too much: nearly every day 4. Feeling tired or having little energy: nearly every day 5. Poor appetite or overeating: nearly every day 6. Feeling bad about yourself - or that you are a failure or have let yourself or your family down: nearly every day 7. Trouble concentrating on things, such as reading the newspaper or watching television: nearly every day 8. Moving or speaking so slowly that other people could have noticed. Or the opposite - being so fidgety or restless that you have been moving around a lot more than usual: nearly every day 9. Thoughts that you would be better off or of hurting yourself in some way: not at all Total score: 24 Depression Screening Interpretation: Negative 25808 - PHQ-9 Billing: Yes Source: Developed by Drs. Maxx Vergara, Minnie Valle, Kashmir Johnson and colleagues, with an educational chandu from [email or web address]. Thrive Questionnaire Date Thrive assessed: 12/29/22 AUDIT C Alcohol Use Questionnaire (AUDIT-C) 1. How often do you have a drink containing alcohol?: Never Total Score: 0 Score Reviewed/Action Taken: Yes WILD-7 AMB Questionnaire WILD-7 Date WILD - 7 assessed: 06/03/22 Source: Developed by Drs. Maxx Vergara, Minnie Valle, Kashmir Johnson and colleagues, with an educational chandu from [email or web address]. Review of Systems Const Denies chills, Denies headache(s) and Denies weight loss ENT Denies headache(s) Card Denies chest pain, Denies syncope, Denies irregular heart rhythm and Denies dyspnea Resp Denies chest congestion, Denies cough and Denies dyspnea GI Denies abdominal pain, Denies change in stool character, Denies nausea and Denies vomiting Musc Denies deformity and Denies joint swelling Neuro Denies syncope and Denies headache(s) Physical exam (Primary Care) Vital Signs: Last Vital Signs Pulse 112 H 01/06/23 10:51 BP 112/62 01/06/23 10:51 Pulse Ox 98 01/06/23 10:51 Oxygen Delivery Method Nasal Cannula 01/06/23 10:51 BMI result Body Mass Index 35.2 Tobacco/Smoking Status: Tobacco use Status Tobacco use date assessed 11/26/22 01/06/23 10:56 Patient Tobacco Use Status Current everyday Tobacco 01/06/23 10:56 Tobacco use type Cigarette 01/06/23 10:56 e-Cigarette/Vaping Use Never Used 01/06/23 10:56 PHQ-9: PHQ-9 Score PHQ-9: Total score 01/06/23 10:56 Depression Screening Interpretation: Negative Thrive Assessment: Date of Thrive Assessment Date Thrive assessed 12/29/22 01/06/23 10:56 Const General: cooperative, comfortable and no acute distress Chest Chest palpation & inspection: normal inspection of the chest Resp Effort & Inspection: normal respiratory effort Auscultation: clear to auscultation bilaterally Percussion: percussion normal Cardio Jugular venous distension: no JVD Rate: regular rate Rhythm: regular rhythm Assessment and Plan Assessment & Plan (1) Diabetes mellitus with coincident hypertension: Code(s): E11.9 - Type 2 diabetes mellitus without complications; I10 - Essential (primary) hypertension Plan: stable; same rx Orders: Orders Glucose Fasting Today R73.9 - Hyperglycemia, unspecified Hemoglobin A1c Today R73.9 - Hyperglycemia, unspecified Microalbumin, Random (w Creat) Today E11.69 - Type 2 diabetes mellitus with other specified complication, E66.01 - Morbid (severe) obesity due to excess calories Medications: Refilled pen needle, diabetic Use four times a day or as directed. 100 ea 0RF E11.10 - Ty pe 2 diabetes mellitus with ketoacidosis without coma Coding Level of Care Code Est Pt Level 3 (79757) Diagnoses Diabetes mellitus with coincident hypertension E11.9; I10
[2023-01-06 10:51] VITALS: BP 112/62; PULSE 112; O2SAT 98; BMI 35.2
== END 2023-01-06 12:16 | disposition home or self-care (01) ==
PROVIDERS: PCP Internal Medicine; Visit Provider Internal Medicine
DX: E11.9 Type 2 diabetes mellitus without complications (principal); I10 Essential (primary) hypertension
CPT/HCPCS: 99213

== ENCOUNTER 2023-03-03 13:20 | Outpatient (AMB) | payer OTHER, SELFPAY ==
[2023-03-03 13:29] VITALS: BP 122/68; PULSE 119; O2SAT 88; BMI 41.0
--- NOTE | 2023-03-03 13:29 | A.OFFPC_ITS ---
Vital Signs 03/03/23 13:29 Height 5 ft Weight 210 lb BMI 41.0 BP 122/68 Blood Pressure Location Lt brachial Position Sitting Pulse 119 H Pulse Source Pulse Oximeter Pulse Oximetry (%) 88 L Oxygen Delivery Method Room Air Intake Visit Reasons: psych/ possible referral Intake Note: Patient here c/o bilateral leg redness, swelling, pain, psych referral [employer] Required: No Accompanied by: Self / Same As Patient Allergies acetaminophen [Vicodin] Allergy (Unknown, Verified 03/03/23 13:33) Unknown hydrocodone [Vicodin] Allergy (Unknown, Verified 03/03/23 13:33) Unknown sumatriptan [From IMITREX] Allergy (Unknown, Verified 03/03/23 13:33) VOMITING,RASH Tobacco use date assessed: 11/26/22 Dental Screening Dental Screen Date: 03/03/23 Did you have a dental visit in the last 12 months?: No Did you have a dental problem in the last 6 months where you did not have access to dental care?: No Was dental information given to patient?: Patient has dentist HPI psych/ possible referral HPI Details 57-year-old obese female with a history of diabetes mellitus polysubstance abuse COPD hypertension PTSD major depressive disorder hypercholesterolemia coming in for follow-up. This is the 1st time I am seeing the patient. She is on oxygen and is having one today. aic 12/2022 >14 [facility] Medical History (Updated 03/03/23 @ 13:50 by Amaya Martinez MD) Shoulder pain Decreased vision of left eye Abnormal LFTs Bilateral pneumonia Polysubstance abuse Depression Substance abuse Physical exam Cocaine use disorder, moderate, dependence Tension headache Occipital headache Anxiety Diabetes UTI (urinary tract infection) Nausea & vomiting Sinusitis Pyelonephritis Cocaine abuse Cirrhosis Obesity Anxiety and depression Lightheaded Cranial nerve dysfunction Depression Anxiety Splenic vein thrombosis COPD (chronic obstructive pulmonary disease) Hypertension Nephrolithiasis Surgical History H/O wrist surgery Family History Father No problems noted. Mother Diabetes Social History Household Members: Other Household Members Other:: son Housing: House Are you a primary health care attorney to a significant other at home: No Do you presently have visiting nurse or other home services: No 75 years or older and lives alone: No Alcohol intake: current Alcohol intake frequency: a few times a week Patient Tobacco Use Status: Current everyday Tobacco user Tobacco use type: Cigarette Cigarettes Per Day: 4 Years Smoked: 30+ e-Cigarette/Vaping Use: Never Used Second Hand Smoke Exposure: No Substance Use Type: Marijuana service: No Current occupational status: disabled Sexual orientation: Straight/Heterosexual Gender identity: Female Cognitive needs: Yes Hearing needs: No Vision needs: No Questionnaire Thrive Questionnaire Date Thrive assessed: 12/29/22 WILD-7 AMB Questionnaire WILD-7 Date WILD - 7 assessed: 06/03/22 Source: Developed by Drs. Maxx Vergara, Minnie Valle, Kashmir Johnson and colleagues, with an educational chandu from [employer]. Physical exam (Primary Care) Vital Signs: Last Vital Signs Pulse 119 H 03/03/23 13:29 BP 122/68 03/03/23 13:29 Pulse Ox 88 L 03/03/23 13:29 Oxygen Delivery Method Room Air 03/03/23 13:29 BMI result Body Mass Index 41.0 Tobacco/Smoking Status: Tobacco use Status Tobacco use date assessed 11/26/22 03/03/23 13:40 Patient Tobacco Use Status Current everyday Tobacco 03/03/23 13:40 Tobacco use type Cigarette 03/03/23 13:40 e-Cigarette/Vaping Use Never Used 03/03/23 13:40 Thrive Assessment: Date of Thrive Assessment Date Thrive assessed 12/29/22 03/03/23 13:40 Const General: alert; No acute distress Eyes Conjunctivae: conjunctivae normal Resp Auscultation: clear to auscultation bilaterally Cardio Rate: regular rate Rhythm: regular rhythm GI Inspection: Yes normal to inspection Extrem General: Yes normal to inspection and No edema Assessment and Plan Assessment & Plan (1) Type 2 diabetes mellitus with hyperglycemia: Code(s): E11.65 - Type 2 diabetes mellitus with hyperglycemia Plan: Decrease the amount of carbohydrate intake, pasta, bread, rice and potatoes are all sugar and that is aside from all the sweet stuff, remember that fruits are good but they are Sweet also. Hemoglobin A1c goal of less than 6.5 patient is presently on Lantus and Humalog metformin. Discussed with the patient the need for her to bring the machine here so that we can see the sugars. Hemoglobin A1c is due next month (2) Hypertension: Code(s): I10 - Essential (primary) hypertension Plan: Continue with blood pressure medication. Decrease salt intake and exercise patient takes amlodipine 5 mg once a day. Concern that the lower extremity swelling will DC amlodipine and started on lisinopril will monitor from blood work (3) Hyperlipidemia: Code(s): E78.5 - Hyperlipidemia, unspecified Plan: Avoid fried foods, chicken skin, eggs, butter margarine, pastries and meat. Be it pork or beef they have a lot of cholesterol LDL goal of less than 100 and triglyceride of less than 150 will need blood work (4) Obesity: Code(s): E66.9 - Obesity, unspecified Plan: Diet and exercise (5) Polysubstance abuse: Code(s): F19.10 - Other psychoactive substance abuse, uncomplicated Plan: Patient on methadone (6) COPD (chronic obstructive pulmonary disease): Code(s): J44.9 - Chronic obstructive pulmonary disease, unspecified Plan: Patient is on inhaler and oxygen dependent. Patient has Advair and so refill done and does not have the oxygen today but will be receiving at home this afternoon. Patient is being referred to Pulmonary Orders: Orders Influenza [id number] Immunization Today Z23 - Encounter for immunization Microalbumin, Random (w Creat) Today E11.69 - Type 2 diabetes mellitus with other specified complication, E66.01 - Morbid (severe) obesity due to excess calories Vitamin D 25-OH Total Today E11.65 - Type 2 diabetes mellitus with hyperglycemia Complete Blood Count Auto Diff Today D64.9 - Anemia, unspecified Comprehensive [place]. Panel Fast Today N28.9 - Disorder of kidney and ureter, unspecified Lipid Panel Today E78.5 - Hyperlipidemia, unspecified Thyroid Stimulating Hormone Today E03.9 - Hypothyroidism, unspecified Creatinine Urine Today E11.65 - Type 2 diabetes mellitus with hyperglycemia Free T4 (Free Thyroxine) Today E11.65 - Type 2 diabetes mellitus with hyperglycemia Vitamin B12 and Folate Today E11.65 - Type 2 diabetes mellitus with hyperglycemia Referrals Ophthalmology Referral E11.65 - Type 2 diabetes mellitus with hyperglycemia Podiatry Referral E11.65 - Type 2 diabetes mellitus with hyperglycemia Pulmonology Referral J44.9 - Chronic obstructive pulmonary disease, unspecified Psychiatry Referral F33.1 - Major depressive disorder, recurrent, moderate Medications: New flu vacc [id number] 6mos up(PF) 0.5 mL IM ONCE 0.5 mL 0RF Z23 - Encounter for immunization fluticasone propion-salmeterol 250-50 mcg/dose (Advair Diskus) 1 inh inhalation BID 60 ea 11RF J44.9 - Chronic obstructive pulmonary disease, unspecified lisinopril 5 mg PO DAILY 30 tabs 4RF I10 - Essential (primary) hypertension Refilled quetiapine 12.5 mg (1/2 x 25 mg) PO Q4H PRN 30 tabs 6RF anxiety 30 days albuterol sulfate 90 mcg/actuation (Ventolin HFA) 2 puffs inhalation Q6H PRN 8.5 grams 0RF for wheezing J44.9 - Chronic obstructive pulmonary disease, unspecified aspirin 81 mg PO DAILY 30 tabs 7RF Discontinued amlodipine Discontinued Reason: Doctor's Order 5 mg PO DAILY 30 days 30 tabs 7RF Coding Level of Care Code Est Pt Level 4 (63626) Diagnoses Type 2 diabetes mellitus with hyperglycemia E11.65 Hypertension I10 Hyperlipidemia E78.5 Obesity E66.9 Polysubstance abuse F19.10 COPD (chronic obstructive pulmonary disease) J44.9
== END 2023-03-03 14:24 | disposition home or self-care (01) ==
PROVIDERS: PCP Nurse Practitioner Family; Visit Provider Internal Medicine
DX: E11.65 Type 2 diabetes mellitus with hyperglycemia (principal); F19.10 Other psychoactive substance abuse, uncomplicated; J44.9 Chronic obstructive pulmonary disease, unspecified; I10 Essential (primary) hypertension; Z23 Encounter for immunization; E78.5 Hyperlipidemia, unspecified; E66.9 Obesity, unspecified
CPT/HCPCS: 90471; 90686; 99214

== ENCOUNTER 2023-03-15 08:58 | Inpatient (IN) | payer OTHER, SELFPAY ==
[2023-03-15] VITALS (21 sets, daily range): BP systolic 93–192; BP diastolic 39–95; PULSE 88–121; RESP 11–22; TEMP 36–37.6; O2SAT 88–95; BMI 45.9; BMI 45.6; BMI 45.1
--- NOTE | ~2023-03-15 | XR_ITS ---
EXAMINATION: XR CHEST CLINICAL INFORMATION: SOB COMPARISON: AP portable chest 06/29/2022 TECHNIQUE: AP upright and lateral views of the chest were obtained. 10:31 AM FINDINGS: There are patchy opacities in the lung bases which may represent an combination of atelectasis, infiltrate, and/or effusion. Findings are worse on the right. On the lateral view, there is blunting of the posterior sulci consistent with small pleural effusions. Evaluation of the heart is limited by opacity obscuring the right heart border. No pneumothorax. There are degenerative changes of the thoracic spine. XR/XR chest 2V IMPRESSION: 1. Bibasilar patchy opacities which may represent an combination of atelectasis, infiltrate, and/or effusion. 2. Small bilateral pleural effusions.
--- NOTE | ~2023-03-15 | US_ITS ---
EXAMINATION: US VENOUS ULTRASOUND WITH DOPPLER LOWER EXTREMITY, BILATERAL CLINICAL INFORMATION: Edema COMPARISON: None available. TECHNIQUE: Ultrasound of the deep veins is performed from the hip to the calf with compression sonography and color and pulse Doppler assessment. Spectral analysis with color-flow imaging is performed. FINDINGS: RIGHT: There is normal venous compression and respiratory variation and augmented flow. The visualized common femoral vein, superficial femoral vein, profunda femoral vein, popliteal vein and the posterior tibial vein shows no evidence of deep venous thrombosis. The peroneal vein is not seen. LEFT: There is normal venous compression and respiratory variation and augmented flow. The visualized common femoral vein, superficial femoral vein, profunda femoral vein, popliteal vein and the posterior tibial vein shows no evidence of deep venous thrombosis. The peroneal vein is not seen. US/US venous duplex LE BI IMPRESSION: No DVT demonstrated in the right or left lower extremity.
--- NOTE | ~2023-03-15 | CT_ITS ---
EXAMINATION: CT ANGIOGRAM OF THE CHEST WITH AND WITHOUT CONTRAST (CT PULMONARY ANGIOGRAM FOR PE) CLINICAL INFORMATION: Reason for Exam SOB, mildly dilated RV COMPARISON: None available. TECHNIQUE: Prior to contrast administration, noncontrast localization images were obtained. Subsequently, multidetector volumetric imaging was performed from the thoracic inlet to below the diaphragms following the administration of 80 mL Omnipaque 350 intravenous contrast. No contrast reaction reported Sagittal, coronal, and MIP oblique sagittal reformatted images were obtained on the CT workstation, uploaded to PACS, and reviewed. This CT examination was performed using dose optimization techniques as appropriate, variously including the following: *Automated exposure control *Adjustment of mA and/or kV according to patient size (this includes techniques or standardized protocols for targeted exams where dose is matched to indication/reason for exam; i.e. extremities or head) *Use of iterative reconstruction technique Total exam dose-length product 389 mGy-cm FINDINGS: QUALITY OF STUDY/CONTRAST BOLUS: Satisfactory. PULMONARY ARTERIES: No pulmonary emboli. THORACIC AORTA: No aneurysm. LUNG: Consolidation with volume loss and air bronchograms at the right lower lobe. Linear bands of atelectasis at the left lung base. There are a few scattered peripheral areas of mosaic attenuation in the lungs bilaterally consistent with small airways disease. Lower trachea has a crescent appearance consistent with tracheomalacia. PLEURA: Trace dependent bilateral pleural effusions MEDIASTINUM: Heart size is enlarged. No evidence of septal bowing or right heart strain. There is no pericardial effusion. CORONARY ARTERY CALCIFICATION: Small volume of coronary calcification CHEST WALL/AXILLA: No axillary or internal mammary lymphadenopathy. OSSEOUS STRUCTURES: Multilevel degenerative spondylosis spine. UPPER ABDOMEN: There is hepatomegaly. Diffuse low attenuation of liver parenchyma due to fatty change. Enlarged left adrenal gland measuring 3 x 2.5 cm. Density measurement 16 Hounsfield units[address] of chest June 29, 2022 this mass measured -3 Hounsfield units consistent with an adrenal adenoma. No further follow-up imaging recommended. The right adrenal gland is normal. No reflux of contrast into the hepatic veins to suggest elevated right heart pressures. CT/CT angio chest PE protocol IMPRESSION: 1. No evidence of pulmonary embolism. 2. Right lower lobe consolidation with volume loss. 3. Trace dependent bilateral pleural effusions. 4. Cardiomegaly. 5. Hepatomegaly. Diffuse fatty change of liver. 6. Left adrenal adenoma. No further follow-up imaging recommended. VTE: negative.
--- NOTE | 2023-03-15 09:00 | ECG_ITS ---
Test Reason : SOB Blood Pressure : / mmHG Vent. Rate : 119 BPM Atrial Rate : 119 BPM P-R Int : 144 ms QRS Dur : 076 ms QT Int : 318 ms P-R-T Axes : 063 098 037 degrees QTc Int : 447 ms Sinus tachycardia Rightward axis RSR' or QR pattern in V1 suggests right ventricular conduction delay Abnormal ECG When compared with ECG of 29-DEC-2022 06:11, Nonspecific T wave abnormality, improved in Inferior leads Referred By: Katey Gray Electronically Signed By:JUDITH HEARD MD
--- NOTE | 2023-03-15 09:04 | ED_ITS ---
HPI - General Adult General Chief complaint: Chest Pain Stated complaint: CRUSHING CP,PITTING EDEMA OF BODY PER EMS Time Seen by Provider: 03/15/23 09:02 Source: patient and EMS Mode of arrival: EMS Limitations: no limitations History of Present Illness HPI narrative: Patient is a 57 year old assigned female at with a history of DM, opioid use disorder on methadone, COPD on 2 of oxygen via nasal canula, presenting to the emergency department today with chest pain, weight gain, and shortness of breath. Patient states that starting 3 days ago she started having worsening shortness of breath and last night she began having 10/10 pain. Patient states that she drinks 3-4 nips per day of alcohol. Patient states that she has not used cocaine in over 2 months. Patient denies any dizziness, lightheadedness, abdominal pain, nausea, vomiting, fever, chills, blurry vision, double vision, loss of vision, back pain, night sweats, pain with urination, increased urinary frequency, increased urinary urgency, blood in her urine or stool, syncope or a near syncopal episode, recent trauma or falls, bowel incontinence, bladder incontinence, bowel retention, bladder retention, or any other complaints at this time. Onset (ago): day(s) Location: chest Severity: moderate Pain Consistency: constant Relieving factors: none Exacerbating factors: none Associated symptoms: chest pain and shortness of breath Treatments prior to arrival: none Related Data Home Medications Medication Instructions Recorded Confirmed methadone 10 mg/mL oral 140 mg PO DAILY 02/02/22 03/15/23 concentrate (Methadone Intensol) pulse oximeter 02/03/22 01/07/23 ipratropium 0.5 mg-albuterol 3 mg 3 ml inhalation Q4H PRN shortness 09/29/22 03/15/23 (2.5 mg base)/3 mL nebulization of breath or wheezing soln omeprazole 40 mg capsule,delayed 40 mg PO DAILY@0630 03/15/23 03/15/23 release Previous Rx's Medication Instructions Recorded Oxygen Home Use #1 ea 11/26/20 cane #1 ea 10/16/21 gabapentin 300 mg capsule 900 mg (3 x 300 mg) PO TID 30 days 07/01/22 #270 caps metformin 500 mg tablet 500 mg PO BID #180 tabs 10/08/22 diaper,brief,adult,disposable #60 ea 11/26/22 (Wings Choice Plus Adult Briefs) blood-glucose meter (FreeStyle #1 ea 01/02/23 Lite Meter kit) lancets 28 gauge (FreeStyle #100 ea 01/02/23 Lancets) nicotine 7 mg/24 hr daily 7 mg transdermal DAILY #30 ea 01/02/23 transdermal patch polyethylene glycol 3350 17 gram 17 g PO DAILY #100 ea 01/02/23 oral powder packet sucralfate 1 gram tablet 1 g PO QIDACHS #120 tabs 01/02/23 pen needle, diabetic 32 gauge x #100 ea 01/06/23 1/4 (BD Ultra-Fine Micro Pen Needle) docusate sodium 100 mg capsule 100 mg PO BID #60 caps 01/07/23 (Colace) prazosin 1 mg capsule 3 mg PO BEDTIME 30 days #90 caps 01/07/23 insulin syringe-needle U-100 1 mL #100 ea 01/14/23 31 gauge x 5/16 (BD Insulin Syringe Ultra-Fine) mirtazapine 30 mg tablet 30 mg PO BEDTIME 30 days #30 tabs 01/18/23 blood sugar diagnostic (FreeStyle #100 ea 02/15/23 Lite Strips) insulin glargine 100 unit/mL (3 40 unit (0.4 mL) subcut DAILY #15 02/15/23 mL) subcutaneous pen (Lantus mL Solostar U-100 Insulin) insulin lispro 100 unit/mL 10 unit (0.1 mL) subcut TIDAC #10 02/15/23 subcutaneous solution (Humalog mL U-100 Insulin) albuterol sulfate 90 mcg/actuation 2 puff inhalation Q6H PRN for 03/03/23 aerosol inhaler (Ventolin HFA) wheezing #8.5 grams aspirin 81 mg tablet,delayed 81 mg PO DAILY #30 tabs 03/03/23 release fluticasone 250 mcg-salmeterol 50 1 inh inhalation BID #60 ea 03/03/23 mcg/dose blistr powdr for inhalation (Advair Diskus) lisinopril 5 mg tablet 5 mg PO DAILY #30 tabs 03/03/23 quetiapine 25 mg tablet 12.5 mg (1/2 x 25 mg) PO Q4H PRN 03/03/23 anxiety 30 days #30 tabs Allergies Allergy/AdvReac Type Severity Reaction Status Date / Time acetaminophen [Vicodin] Allergy Unknown Unknown Verified 03/03/23 13:33 hydrocodone [Vicodin] Allergy Unknown Unknown Verified 03/03/23 13:33 sumatriptan [From IMITREX] Allergy Unknown VOMITING,RA Verified 03/03/23 13:33 SH Review of Systems 2 Constitutional: Constitutional: Reports no additional constitutional complaints, Denies chills, Denies fever(s), Denies night sweats and Reports weight gain Eyes: Eyes: Reports no additional eye complaints, Denies blurry vision, Denies change in vision, Denies diplopia, Denies eye discharge, Denies loss of vision and Denies eye pain ENT: Denies dizziness Cardiovascular: Cardiovascular: Reports no additional cardiovascular complaints, Reports chest pain, Denies lightheadedness, Denies Loss of Consciousness and Reports dyspnea Respiratory: Respiratory: Reports no additional respiratory complaints and Reports dyspnea Gastrointestinal: Gastrointestinal: Reports no additional gastrointestinal complaints, Denies abdominal pain, Denies melena, Denies hematochezia, Denies change in bowel habits and Denies change in stool character Genitourinary: Genitourinary: Denies hematuria, Denies urinary frequency, Denies dysuria, Denies urinary incontinence, Denies urinary hesitancy and Denies urinary urgency Musculoskeletal: Musculoskeletal: Reports no additional musculoskeletal complaints, Denies numbness and Denies tingling Neurologic: Denies dizziness, Denies loss of vision, Denies numbness and Denies tingling Psychiatric: Psychiatric: Reports no additional psychiatric complaints Endocrine: Endocrine: Reports no additional endocrine complaints Hematologic/Lymphatic: Hematologic/Lymphatic: Reports no additional hematologic/lymphatic complaints Allergic/Immunologic: Allergic/Immunologic: Reports no additional allergic/immunologic complaints [facility] Past Medical History Attestation statement: The following information was validated with the patient. Source: old records reviewed and nursing notes reviewed Medical History Shoulder pain Decreased vision of left eye Abnormal LFTs Bilateral pneumonia Polysubstance abuse Depression Substance abuse Physical exam Cocaine use disorder, moderate, dependence Tension headache Occipital headache Anxiety Diabetes UTI (urinary tract infection) Nausea & vomiting Sinusitis Pyelonephritis Cocaine abuse Cirrhosis Obesity Anxiety and depression Lightheaded Cranial nerve dysfunction Depression Anxiety Splenic vein thrombosis COPD (chronic obstructive pulmonary disease) Hypertension Nephrolithiasis Surgical History H/O wrist surgery Family History Family History Father No problems noted. Mother Diabetes Social History Social History Household Members: Other Household Members Other:: son Housing: House Are you a primary animal care giver to a significant other at home: No Do you presently have visiting nurse or other home services: No Alcohol intake: current Alcohol intake frequency: 3 or more drinks per day Patient Tobacco Use Status: Current everyday Tobacco user Tobacco use type: Cigarette Cigarettes Per Day: 4 Years Smoked: 30+ Smoked in Last 30 Days: Yes e-Cigarette/Vaping Use: Never Used Second Hand Smoke Exposure: No Use of substances other than those prescribed or required for medical reasons: No Substance Use Type: Marijuana Advance Directives: No Advance Directives Information Provided: No service: No Current occupational status: disabled Sexual orientation: Straight/Heterosexual Gender identity: Female Cognitive needs: Yes Hearing needs: No Vision needs: No Physical Exam ED Vital Signs: Vital Signs - 24 hr 03/15/23 09:08 03/15/23 09:15 03/15/23 10:56 Pulse Rate 116 H 106 H Respiratory Rate 22 H 22 H Blood Pressure 192/39 H 104/50 L Pulse Oximetry 88 L 92 91 L Oxygen Delivery Method Nasal Cannula Nasal Cannula Oxygen Flow Rate 4 03/15/23 11:18 03/15/23 12:00 03/15/23 12:00 Pulse Rate 109 H 107 H 108 H Respiratory Rate 22 H 18 22 H Blood Pressure 116/59 L 97/49 L 108/50 L Pulse Oximetry 90 L 90 L 93 Oxygen Delivery Method Room Air Nasal Cannula Oxymask Oxygen Flow Rate 4 4 6 03/15/23 14:00 03/15/23 14:58 03/15/23 15:38 Pulse Rate 110 H 112 H Respiratory Rate 20 19 18 Blood Pressure 109/52 L Pulse Oximetry 93 90 L Oxygen Delivery Method Oxymask Oxymask Oxygen Flow Rate 6 3 BMI result Body Mass Index 45.9 Const General: cooperative, no acute distress, alert and awake Nutritional Appearance: well nourished Orientation/consciousness: patient oriented x3 Limitations: no limitations HENMT Head: Yes normal to inspection and Yes atraumatic Ears: hearing grossly normal bilaterally and external ears normal General nose exam: Normal external nose present, no nasal discharge noted and no epistaxis Face and sinus: Yes normal facial exam, No abrasion and No laceration Mouth: Normal oral and palatal mucosa present, no drooling and no muffled voice Eyes General: appearance normal, both eyes and all related structures Periorbital: periorbital findings normal Eyelids: Yes eyelids normal Conjunctivae: conjunctivae normal Pupils: Equal, round and reactive pupils present EOM: EOMs intact bilaterally Neck Neck: Yes normal visual inspection, Yes full ROM and Yes no lymphadenopathy Chest Chest palpation & inspection: normal inspection of the chest Resp Effort & Inspection: able to speak in complete sentences and labored Auscultation: crackles on the left at the base and wheezes scattered wheezes Cardio Rate: tachycardic Rhythm: regular rhythm GI Inspection: Yes normal to inspection Neuro General: patient oriented x3 and moves all extremities Cranial nerves: Yes Equal, round and reactive pupils present Cognition (Neuro): normal cognition Motor exam (neuro): 5/5 motor strength present throughout Sensory Exam: Normal double simultaneous stimulation for sensation Coordination: [id number] test normal Extrem Other: bilateral erythema to the lower extremities, minimal swellin to all extremities General: Yes full ROM and Yes capillary refill normal Psych Appearance: grossly normal Mental Status: mental status grossly normal Affect: normal affect Attitude: cooperative Thought process: Normal thought process present Thought content: Normal thought content present Insight: Good insight present (Psych) Medications Administered Discontinued Medications Generic Name Dose Route Start Last Admin Trade Name Lenny PRN Reason Stop Dose Admin Doxycycline Monohydrate 100 mg 03/15/23 11:29 03/15/23 12:32 Doxycycline Monohydrate 100 Mg Capsule PO 03/15/23 11:30 100 mg ONCE ONE Administration Furosemide 40 mg 03/15/23 10:56 03/15/23 11:05 Furosemide 40 Mg/4 Ml Vial IVPUSH 03/15/23 10:57 Not Given STAT STA Protocol Furosemide 20 mg 03/15/23 11:29 03/15/23 12:32 Furosemide 20 Mg/2 Ml Vial IVPUSH 03/15/23 11:30 20 mg ONCE ONE Administration Protocol Magnesium Sulfate 2 gm in 50 mls @ 25 mls/hr 03/15/23 10:45 03/15/23 13:29 Magnesium Sulfate/H2o IV 03/15/23 12:44 Infused ONCE ONE Infusion Iohexol 65 ml 03/15/23 14:46 03/15/23 14:47 Iohexol 350 Mg/Ml 100 Ml Infus..Btl IV 03/15/23 14:47 65 ml ONCE ONE Administration Lorazepam 2 mg 03/15/23 10:56 03/15/23 11:09 Lorazepam 2 Mg/Ml Vial IVPUSH 03/15/23 10:57 2 mg ONCE ONE Administration Methadone HCl 140 mg 03/15/23 11:00 03/15/23 11:14 Methadone Hcl 20 Mg/2 Ml Oral.Conc PO 03/15/23 11:01 140 mg ONCE ONE Administration Nitroglycerin 0.5 inch 03/15/23 10:57 03/15/23 11:05 Nitroglycerin 2 % Oint 1 Gm Packet TRANSDERMA 03/15/23 10:58 Not Given ONCE ONE Medical Decision Making Medical Decision Making MDM Narrative: Patient is a 57 year old assigned female at with a history of DM, opioid use (on methadone), cocaine use (last use 2 months ago), COPD (on 2 liters of oxygen via nasal canula), HTN, and PTSD presenting to the emergency department today with chest pain and increased shortness of breath. Patient's physical exam was as noted in the physical exam portion of this note. Patient's blood work showed an elevated lactic acid of 3.9, magnesium of 1.1, initial troponin of 178.8, and a BNP of 104. The rest of the patient's labs are otherwise grossly normal. Patient's repeat troponin is pending at this time. Patient's urine showed is pending at this time. Patient's EKG showed tachycardia at 119 but was otherwise unremarkable. Patient's chest x-ray showed bibasilar patchy opacities which the radiologist states could be a combination of atelectasis, infiltrates, and/or effusion with small bilateral pleural effusions. I spoke to the patient accounts clerk who recommended giving the patient 20 of IV lasix, Doxycycline, obtaining an echocardiogram, and a CT PE study. Patient's echo and CT PE studies are pending now. I spoke to the hospitalist team who agreed to admission. Patient's clinical presentation is most consistent with CHF and is not consistent with Sepsis (@1300). Patient became more somnolent and I obtained an ABG showing pH of 7.33, pCO2 76, pO2 80, HCO3 40. Discussed the case with my attending physician, Dr. Santa and the patient accounts clerk - we all agreed to begin the patient on BiPaP. Spoke to the manager strategic alliances who initially agreed to admission. Card Feeder came and evaluated the patient, recommended dropping the patient to 3-4 liters of [place] oxygen and repeating the ABG in a half hour. Stated that if the patient remains acidic, he will take the patient in the ICU however, if the patient improves, she is suitable for the floor. States that the patient's oxygen saturation should stay between 87 and 92%. Patient's repeat ABG is improved. Patient to be admitted to the hospitalist team. Hospitalist team agreed to admission. I explained my physical exam findings as well as all test results to the patient. I answered all questions asked by the patient. Patient verbalized agreement and understanding with this treatment plan and admission. Differential Diagnosis Differential Diagnoses: The differential diagnosis associated with the presentation includes CHF exacerbation SOB PE COVID-19 Influenza RSV NSTEMI STEMI Admission/Observation Consideration of admission/observation: Escalation of care including admission/observation considered Patient admitted to ICU. Consult Healthcare Provider Management of the patient was discussed with: Hospitalist (Agreed to admission as noted in the MDM Rationale portion of this note.) and Contact Center Director (spoke with the patient accounts clerk and manager strategic alliances as noted in the MDM Rationale portion of this note.) Lab Data [facility] Lab Attestation statement: I reviewed the patient's lab results. My interpretation of these results are in the MDM Rationale portion of this note. 03/15/23 09:58 03/15/23 09:58 Labs: Lab Results 03/15/23 03/15/23 03/15/23 Range/Units 09:58 10:05 13:03 WBC 9.0 (4.8-10.8) X10*3/uL RBC 3.55 L (4.20-5.50) X10*6/uL Hgb 11.2 L (12.0-16.0) g/dl Hct 38.5 (37.0-47.0) % MCV 108.5 H (80.0-98.0) fL MCH 31.5 (27.0-33.0) pg MCHC 29.1 L (31.0-35.0) g/dl RDW 19.9 H (11.0-16.0) % Plt Count 207 D (160-400) X10*3/uL MPV 10.6 (9.4-12.3) fL Immature Gran % (Auto) 0.4 (0.0-0.4) % Neut % (Auto) 80.3 H (45-73) % Lymph % (Auto) 13.8 L (20-40) % [place] % (Auto) 4.8 (2-11) % Eos % (Auto) 0.3 (0-4) % Baso % (Auto) 0.4 (0-2) % Lymph # (Auto) 1.3 (1.2-4.9) X10*3/uL [place] # (Auto) 0.4 (0.1-1.2) X10*3/uL Eos # (Auto) 0.0 (0.0-0.4) X10*3/uL Baso # (Auto) 0.0 (0.0-0.2) X10*3/uL Abs Immat Gran (auto) 0.04 H (0.00-0.03) X10*3/uL Absolute Neuts (auto) 7.2 (2.0-8.3) x10*3/uL Absolute Nucleated RBC 0.000 (0.0-0.012) X10*3/uL Nucleated RBC % (auto) 0.0 (0.0-0.2) /100WBC PT 13.2 (11.1-13.3) SEC INR 1.1 (0.9-1.1) APTT 28.0 (26.0-36.4) SEC O2 Saturation % ABG pH at Pt Temp (7.35-7.45) ABG pCO2 at Pt Temp (32-45) mmHg ABG pO2 at Pt Temp (83-108) mmHg ABG HCO3 (22-26) mmol/L ABG Base Excess (Actual) mmol/L VBG pH 7.42 (7.32-7.43) VBG pCO2 50 mmHg VBG pO2 54 mmHg VBG HCO3 33 H (22-26) mmol/L VBG O2 Saturation 83.0 % VBG Base Excess 7.5 mmol/L Sodium 142 (135-145) mmol/L Potassium 3.7 (3.3-5.1) mmol/L Chloride 110 H (96-108) mmol/L Carbon Dioxide 24 (22-29) mmol/L Anion Gap 12 (12-20) BUN 5 L (9-16) mg/dL Creatinine 0.56 (0.5-1.4) mg/dL Estim Creat Clear Calc 122.3 Estimated GFR > 60 Random Glucose 132 H (60-115) mg/dL Lactic Acid 3.9 H* (0.5-2.0) mmol/L Lactic Acid F/U @ 2Hr 1.1 (0.5-2.0) mmol/L Calcium 6.5 L D (8.4-10.2) mg/dL Magnesium 1.1 L* (1.6-2.6) mg/dL Total Bilirubin 0.3 (0.0-1.0) mg/dL AST 30 (5-31) U/L ALT 14 (0-31) U/L Alkaline Phosphatase 112 (39-117) U/L Ammonia (13-55) umol/L Troponin I High Sens 178.8 H* D 717.5 H* D (<3.5-17.0) ng/L B-Natriuretic Peptide 104 H (<100) pg/mL Total Protein 4.6 L (6.5-8.0) g/dL Albumin 1.9 L (3.5-5.0) g/dL Urine Color Urine Appearance Urine pH (5.0-9.0) Ur Specific [place] (1.005-1.025) Urine Protein (Neg-Trace) mg/dL Urine Glucose (UA) (Negative) mg/dL Urine Ketones (Negative) mg/dL Urine Blood (Negative) Urine Nitrite (Negative) Ur Leukocyte Esterase (Negative) Urine Opiates Screen (Not Detect) Urine Fentanyl Screen (Not Detect) Ur Barbiturates Screen (Not Detect) Ur Phencyclidine Scrn (Not Detect) Ur Amphetamines Screen (Not Detect) U Benzodiazepines Scrn (Not Detect) Urine Cocaine Screen (Not Detect) U Marijuana (THC) Screen (Not Detect) Influenza Type A (PCR) NEGATIVE (Negative) Influenza Type B (PCR) NEGATIVE (Negative) RSV RNA Qual (PCR) NEGATIVE (Negative) SARS-CoV-2 RNA (RT-PCR) NEGATIVE (Negative) 03/15/23 03/15/23 03/15/23 Range/Units 13:53 13:56 15:04 WBC (4.8-10.8) X10*3/uL RBC (4.20-5.50) X10*6/uL Hgb (12.0-16.0) g/dl Hct (37.0-47.0) % MCV (80.0-98.0) fL MCH (27.0-33.0) pg MCHC (31.0-35.0) g/dl RDW (11.0-16.0) % Plt Count (160-400) X10*3/uL MPV (9.4-12.3) fL Immature Gran % (Auto) (0.0-0.4) % Neut % (Auto) (45-73) % Lymph % (Auto) (20-40) % [place] % (Auto) (2-11) % Eos % (Auto) (0-4) % Baso % (Auto) (0-2) % Lymph # (Auto) (1.2-4.9) X10*3/uL [place] # (Auto) (0.1-1.2) X10*3/uL Eos # (Auto) (0.0-0.4) X10*3/uL Baso # (Auto) (0.0-0.2) X10*3/uL Abs Immat Gran (auto) (0.00-0.03) X10*3/uL Absolute Neuts (auto) (2.0-8.3) x10*3/uL Absolute Nucleated RBC (0.0-0.012) X10*3/uL Nucleated RBC % (auto) (0.0-0.2) /100WBC PT (11.1-13.3) SEC INR (0.9-1.1) APTT (26.0-36.4) SEC O2 Saturation 94.0 % ABG pH at Pt Temp 7.33 L (7.35-7.45) ABG pCO2 at Pt Temp 76 H* (32-45) mmHg ABG pO2 at Pt Temp 80 L (83-108) mmHg ABG HCO3 40 H (22-26) mmol/L ABG Base Excess (Actual) 11.5 mmol/L VBG pH (7.32-7.43) VBG pCO2 mmHg VBG pO2 mmHg VBG HCO3 (22-26) mmol/L VBG O2 Saturation % VBG Base Excess mmol/L Sodium (135-145) mmol/L Potassium (3.3-5.1) mmol/L Chloride (96-108) mmol/L Carbon Dioxide (22-29) mmol/L Anion Gap (12-20) BUN (9-16) mg/dL Creatinine (0.5-1.4) mg/dL Estim Creat Clear Calc Estimated GFR Random Glucose (60-115) mg/dL Lactic Acid (0.5-2.0) mmol/L Lactic Acid F/U @ 2Hr (0.5-2.0) mmol/L Calcium (8.4-10.2) mg/dL Magnesium (1.6-2.6) mg/dL Total Bilirubin (0.0-1.0) mg/dL AST (5-31) U/L ALT (0-31) U/L Alkaline Phosphatase (39-117) U/L Ammonia 48 (13-55) umol/L Troponin I High Sens (<3.5-17.0) ng/L B-Natriuretic Peptide (<100) pg/mL Total Protein (6.5-8.0) g/dL Albumin (3.5-5.0) g/dL Urine Color Urine Appearance Urine pH (5.0-9.0) Ur Specific [place] (1.005-1.025) Urine Protein (Neg-Trace) mg/dL Urine Glucose (UA) (Negative) mg/dL Urine Ketones (Negative) mg/dL Urine Blood (Negative) Urine Nitrite (Negative) Ur Leukocyte Esterase (Negative) Urine Opiates Screen Not Detected (Not Detect) Urine Fentanyl Screen Not Detected (Not Detect) Ur Barbiturates Screen Not Detected (Not Detect) Ur Phencyclidine Scrn Not Detected (Not Detect) Ur Amphetamines Screen Not Detected (Not Detect) U Benzodiazepines Scrn POSITIVE H (Not Detect) Urine Cocaine Screen Not Detected (Not Detect) U Marijuana (THC) Screen POSITIVE H (Not Detect) Influenza Type A (PCR) (Negative) Influenza Type B (PCR) (Negative) RSV RNA Qual (PCR) (Negative) SARS-CoV-2 RNA (RT-PCR) (Negative) 03/15/23 03/15/23 Range/Units 15:05 15:47 WBC (4.8-10.8) X10*3/uL RBC (4.20-5.50) X10*6/uL Hgb (12.0-16.0) g/dl Hct (37.0-47.0) % MCV (80.0-98.0) fL MCH (27.0-33.0) pg MCHC (31.0-35.0) g/dl RDW (11.0-16.0) % Plt Count (160-400) X10*3/uL MPV (9.4-12.3) fL Immature Gran % (Auto) (0.0-0.4) % Neut % (Auto) (45-73) % Lymph % (Auto) (20-40) % [place] % (Auto) (2-11) % Eos % (Auto) (0-4) % Baso % (Auto) (0-2) % Lymph # (Auto) (1.2-4.9) X10*3/uL [place] # (Auto) (0.1-1.2) X10*3/uL Eos # (Auto) (0.0-0.4) X10*3/uL Baso # (Auto) (0.0-0.2) X10*3/uL Abs Immat Gran (auto) (0.00-0.03) X10*3/uL Absolute Neuts (auto) (2.0-8.3) x10*3/uL Absolute Nucleated RBC (0.0-0.012) X10*3/uL Nucleated RBC % (auto) (0.0-0.2) /100WBC PT (11.1-13.3) SEC INR (0.9-1.1) APTT (26.0-36.4) SEC O2 Saturation 95.0 % ABG pH at Pt Temp 7.37 (7.35-7.45) ABG pCO2 at Pt Temp 69 H* (32-45) mmHg ABG pO2 at Pt Temp 78 L (83-108) mmHg ABG HCO3 40 H (22-26) mmol/L ABG Base Excess (Actual) 12.3 mmol/L VBG pH (7.32-7.43) VBG pCO2 mmHg VBG pO2 mmHg VBG HCO3 (22-26) mmol/L VBG O2 Saturation % VBG Base Excess mmol/L Sodium (135-145) mmol/L Potassium (3.3-5.1) mmol/L Chloride (96-108) mmol/L Carbon Dioxide (22-29) mmol/L Anion Gap (12-20) BUN (9-16) mg/dL Creatinine (0.5-1.4) mg/dL Estim Creat Clear Calc Estimated GFR Random Glucose (60-115) mg/dL Lactic Acid (0.5-2.0) mmol/L Lactic Acid F/U @ 2Hr (0.5-2.0) mmol/L Calcium (8.4-10.2) mg/dL Magnesium (1.6-2.6) mg/dL Total Bilirubin (0.0-1.0) mg/dL AST (5-31) U/L ALT (0-31) U/L Alkaline Phosphatase (39-117) U/L Ammonia (13-55) umol/L Troponin I High Sens (<3.5-17.0) ng/L B-Natriuretic Peptide (<100) pg/mL Total Protein (6.5-8.0) g/dL Albumin (3.5-5.0) g/dL Urine Color Yellow Urine Appearance Clear Urine pH 6.0 (5.0-9.0) Ur Specific [place] <= 1.005 (1.005-1.025) Urine Protein Negative (Neg-Trace) mg/dL Urine Glucose (UA) Negative (Negative) mg/dL Urine Ketones Negative (Negative) mg/dL Urine Blood Negative (Negative) Urine Nitrite Negative (Negative) Ur Leukocyte Esterase Negative (Negative) Urine Opiates Screen (Not Detect) Urine Fentanyl Screen (Not Detect) Ur Barbiturates Screen (Not Detect) Ur Phencyclidine Scrn (Not Detect) Ur Amphetamines Screen (Not Detect) U Benzodiazepines Scrn (Not Detect) Urine Cocaine Screen (Not Detect) U Marijuana (THC) Screen (Not Detect) Influenza Type A (PCR) (Negative) Influenza Type B (PCR) (Negative) RSV RNA Qual (PCR) (Negative) SARS-CoV-2 RNA (RT-PCR) (Negative) Independent Interpretation I performed an independent interpretation of an: EKG and Plain X-Ray Interpretation: My interpretation is in agreement with the radiologist's impression of these imaging studies. - EXAMINATION: XR CHEST CLINICAL INFORMATION: SOB COMPARISON: AP portable chest 06/29/2022 TECHNIQUE: AP upright and lateral views of the chest were obtained. 10:31 AM FINDINGS: There are patchy opacities in the lung bases which may represent an combination of atelectasis, infiltrate, and/or effusion. Findings are worse on the right. On the lateral view, there is blunting of the posterior sulci consistent with small pleural effusions. Evaluation of the heart is limited by opacity obscuring the right heart border. No pneumothorax. There are degenerative changes of the thoracic spine. XR/XR chest 2V IMPRESSION: 1. Bibasilar patchy opacities which may represent an combination of atelectasis, infiltrate, and/or effusion. 2. Small bilateral pleural effusions. Dictated By: Nicolle De Santiago MD Signed By: Electronically signed by Nicolle De Santiago MD 03/15/23 1102 - EXAMINATION: US VENOUS ULTRASOUND WITH DOPPLER LOWER EXTREMITY, BILATERAL CLINICAL INFORMATION: Edema COMPARISON: None available. TECHNIQUE: Ultrasound of the deep veins is performed from the hip to the calf with compression sonography and color and pulse Doppler assessment. Spectral analysis with color-flow imaging is performed. FINDINGS: RIGHT: There is normal venous compression and respiratory variation and augmented flow. The visualized common femoral vein, superficial femoral vein, profunda femoral vein, popliteal vein and the posterior tibial vein shows no evidence of deep venous thrombosis. The peroneal vein is not seen. LEFT: There is normal venous compression and respiratory variation and augmented flow. The visualized common femoral vein, superficial femoral vein, profunda femoral vein, popliteal vein and the posterior tibial vein shows no evidence of deep venous thrombosis. The peroneal vein is not seen. US/US venous duplex LE IMPRESSION: No DVT demonstrated in the right or left lower extremity. Dictated By: Nicolle De Santiago MD Signed By: Electronically signed by Nicolle De Santiago MD 03/15/23 1036 - Vent. Rate: 119 BPM Atrial Rate: 119 BPM P-R Int: 144 ms QRS Dur: 076 ms QT Int: 318 ms P-R-T Axes: 063 098 037 degrees QTc Int: 447 ms Sinus tachycardia Rightward axis Septal infarct, age undetermined Abnormal ECG 03/15/23 0906 Radiology Impression Discussion of test interpretation with radiology: I have reviewed the radiologist's reading. Independent Historian Clinical information obtained from an independent historian. History obtained from or confirmed by: EMS (EMS provided additional history and confirmed the history provided by the patient.) External Record Review External record reviewed: Inpatient record, Office record and Outpatient record Chronic Conditions Patient?s care impacted by: Diabetes and Hypertension Critical Care Time Critical Care Time Critical Care Time: Yes Total Critical Care Time: 75 Attestation: I spent 75 minutes of Critical Care Time with this patient. This does not include time spent on separately reported billable procedures. Discharge Plan Discharge Clinical Impression: CHF (congestive heart failure) Patient Disposition: Admitted As Inpatient Prescriptions: No Action (DME) cane Device See Rx Instructions .Route Qty: 1 0RF Rx Instructions: As directed gabapentin 300 mg capsule 900 mg PO TID 30 Days Qty: 270 7RF (DME) pen needle, diabetic [BD Ultra-Fine Micro Pen Needle] 32 gauge x 1/4 needle See Rx Instructions .Route Qty: 100 8RF Rx Instructions: test 4 times per day prazosin 1 mg capsule 3 mg PO BEDTIME 30 Days Qty: 90 4RF Protocol: Hold for SBP< HOLD for SBP < : 90 docusate sodium [Colace] 100 mg capsule 100 mg PO BID Qty: 60 4RF (DME) insulin syringe-needle U-100 [BD Insulin Syringe Ultra-Fine] 1 mL 31 gauge x 5/16 syringe See Rx Instructions .Route Qty: 100 2RF Rx Instructions: As directed 4 times per day mirtazapine 30 mg tablet 30 mg PO BEDTIME 30 Days Qty: 30 5RF insulin glargine [Lantus Solostar U-100 Insulin] 100 unit/mL (3 mL) insulin pen 40 unit SUBCUT DAILY Qty: 15 0RF insulin lispro [Humalog U-100 Insulin] 100 unit/mL solution 10 unit subcut TIDAC Qty: 10 0RF (DME) FreeStyle Lite Strips Strip Qty: 100 12RF Rx Instructions: Test four times a day or as directed. methadone [Methadone Intensol] 10 mg/mL Concentrate 140 mg PO DAILY (DME) pulse oximeter See Rx Instructions Rx Instructions: As directed nicotine 7 mg/24 hr Patch 24 Hour 7 mg transdermal DAILY Qty: 30 0RF (DME) blood-glucose meter [FreeStyle Lite Meter] Kit Qty: 1 0RF Rx Instructions: As Directed (DME) lancets [FreeStyle Lancets] 28 gauge misc Qty: 100 0RF Rx Instructions: Test four times a day or as directed. polyethylene glycol 3350 17 gram Powder In Packet 17 g PO DAILY Qty: 100 0RF sucralfate 1 gram Tablet 1 g PO QIDACHS Qty: 120 0RF omeprazole 40 mg capsule,delayed release(DR/EC) 40 mg PO DAILY@0630 (DME) Oxygen Home Use Kit See Rx Instructions .ROUTE .MEDSUPPLY Qty: 1 12RF Rx Instructions: 2L nasal cannula continuous ipratropium-albuterol 0.5 mg-3 mg(2.5 mg base)/3 mL solution for nebulization 3 ml inhalation Q4H PRN (Reason: shortness of breath or wheezing) (DME) Wings Choice Plus Adult Briefs Misc See Rx Instructions .Route Qty: 60 0RF Rx Instructions: As directed metformin 500 mg tablet 500 mg PO BID Qty: 180 8RF aspirin 81 mg tablet,delayed release (DR/EC) 81 mg PO DAILY Qty: 30 7RF quetiapine 25 mg tablet 12.5 mg PO Q4H PRN (Reason: anxiety) 30 Days Qty: 30 6RF lisinopril 5 mg tablet 5 mg PO DAILY Qty: 30 4RF fluticasone propion-salmeterol [Advair Diskus] 250-50 mcg/dose blister with device 1 inh inhalation BID Qty: 60 11RF albuterol sulfate [Ventolin HFA] 90 mcg/actuation HFA aerosol inhaler 2 puff inhalation Q6H PRN (Reason: for wheezing) Qty: 8.5 0RF
--- NOTE | 2023-03-15 10:05 | PC.NURSE ---
Patient arrvied from home via ems with complaints of 10/10 chest pain and sob. Patient reports pain started last night and the sob started 3 days ago. Patient with 2+ pitting edema in arms and legs. Abdomen distended. Patient reports she has gained 40lbs in 2months. Reports drinks 4-5 nips per day and needs her methadone. Methadone verified with [facility] [place] in [place]. 140mg given sat and given 140mg to take at home tuesday . Patient reports took dose tuesday and only missed mondays dose. Clinic verified patient was not there yesterday.
[2023-03-15 10:07] LABS: MANUAL DIFF FLAG NO
[2023-03-15 10:10] LABS: VBG Base Excess 7.5 mmol/L; VBG HCO3 33 mmol/L (22-26); VBG pCO2 50 mmHg; VBG pH 7.42 (7.32-7.43); VBG pO2 54 mmHg
[2023-03-15 10:10] LABS: Venous Blood Gas Refer to POC result
[2023-03-15 10:13] LABS: Basophils Percent Auto 0.4 % (0-2); Eosinophils Percent Auto 0.3 % (0-4); Hematocrit 38.5 % (37.0-47.0); Hemoglobin 11.2 g/dl (12.0-16.0); Imm Gran Abs Auto 0.04 X10*3/uL (0.00-0.03); Imm Gran Pct Auto 0.4 % (0.0-0.4); Lymphocytes Absolute Auto 1.3 X10*3/uL (1.2-4.9); Lymphocytes Percent Auto 13.8 % (20-40); Mean Corpuscular HGB Conc 29.1 g/dl (31.0-35.0); Mean Corpuscular Hemoglobin 31.5 pg (27.0-33.0); Mean Corpuscular Volume 108.5 fL (80.0-98.0); Mean Platelet Volume 10.6 fL (9.4-12.3); Monocytes Percent Auto 4.8 % (2-11); Neutrophils Absolute Auto 7.2 x10*3/uL (2.0-8.3); Neutrophils Percent Auto 80.3 % (45-73); Platelet Count 207 X10*3/uL (160-400); Red Blood Count 3.55 X10*6/uL (4.20-5.50); Red Cell Distribution Width 19.9 % (11.0-16.0)
[2023-03-15 10:14] LABS: Monocytes Absolute Auto 0.4 X10*3/uL (0.1-1.2)
[2023-03-15 10:16] LABS: INTERNATIONAL NORM RATIO 1.1 (0.9-1.1); Prothrombin Time 13.2 SEC (11.1-13.3)
[2023-03-15 10:25] LABS: Lactic Acid 3.9 mmol/L (0.5-2.0)
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
[2023-03-15 10:32] LABS: B Type Natriuretic Peptide 104 pg/mL (<100)
[2023-03-15 10:41] LABS: Alanine Aminotransferase 14 U/L (0-31); Albumin Level 1.9 g/dL (3.5-5.0); Alkaline Phosphatase 112 U/L (39-117); Anion Gap 12 (12-20); Aspartate Amino Transferase 30 U/L (5-31); Bilirubin Total 0.3 mg/dL (0.0-1.0); Blood Urea Nitrogen 5 mg/dL (9-16); Calcium 6.5 mg/dL (8.4-10.2); Carbon Dioxide 24 mmol/L (22-29); Chloride 110 mmol/L (96-108); Creatinine Clr Calc Pharmacy 122.3; Estimated Glomerular Filt Rate > 60; Glucose Random 132 mg/dL (60-115); Magnesium 1.1 mg/dL (1.6-2.6); Potassium 3.7 mmol/L (3.3-5.1); Sodium 142 mmol/L (135-145); Total Protein 4.6 g/dL (6.5-8.0); Troponin-I High Sensitivity 178.8 ng/L (<3.5-17.0)
--- NOTE | 2023-03-15 10:47 | HE.PHANOTE ---
RE: METHADONE Pharmacy has received patients methadone verification form. Patient receives 140 mg with [facility] [phone], Patient last dosed with clinic on 03/13, was given a dose of 140 mg to take home for 03/14.
[2023-03-15 10:49] LABS: Influenza A PCR NEGATIVE (Negative); Influenza B PCR NEGATIVE (Negative); Resp Syncy Virus RNA Qual PCR NEGATIVE (Negative); SARS COV2 PCR INHOUSE NEGATIVE (Negative)
--- NOTE | 2023-03-15 11:01 | CA_ITS ---
Transthoracic Echocardiogram Patient (Last, First, Middle): Keturah Sanon, Gender: Female Date of : 1965 Age: 57 Procedure Date: 03/15/2023 Procedure Type: Transthoracic Echocardiogram Location: ER Height: 152.4 cm Weight: 106.6 kg BSA: 2.00 m2 Heart Rate: bpm BP: 105 / 56 mmHg Duralumin Metalworker: MK Referring MD: Katey YA Symptoms: CHF Study Quality: Fair, contrast Conclusions: - Normal left ventricular size and systolic function. There is moderately increased left ventricular wall thickness. The visually estimated ejection fraction is between 65-70%. - E/E prime ratio is >15, consistent with elevated filling pressures. - Mildly increased right ventricular cavity size. - There is normal right ventricular systolic function. - There is moderate aortic valve stenosis. Findings Procedure Information Contrast agent, definity, is being given per protocol without apparent complications. Left Ventricle Normal left ventricular size and systolic function. There is moderately increased left ventricular wall thickness. The visually estimated ejection fraction is between 65-70%. There is no evidence of regional wall motion abnormalities. There is a flattened septum in systole and diastole consistent with right ventricular pressure and volume overload. Abnormal diastolic function is noted. Spectral Doppler is indicative of an impaired relaxation filling pattern. E/E prime ratio is >15, consistent with elevated filling pressures. Right Ventricle Mildly increased right ventricular cavity size. There is normal right ventricular systolic function. Atria The left atrium is normal in size. The right atrium is normal in size. Aortic Valve There is mild calcification of the aortic valve. There is moderate aortic valve stenosis. The peak aortic velocity is 3.70 m/s. The mean gradient is 31 mmHg. The aortic valve area is 1.11 cm2. There is no aortic valve regurgitation. Mitral Valve There is moderate mitral annular calcification. There is no mitral valve regurgitation. There is no mitral valve stenosis. Pulmonic Valve The pulmonic valve was not well visualized. Tricuspid Valve Likely normal tricuspid valve structure and function. Tricuspid regurgitation envelope is inadequate for calculation of right ventricular systolic pressure. Normal right atrial pressure. Great Vessels All visible segments of the aorta are normal in size. The visualized portions of the pulmonary artery and branches are normal. Venous The inferior vena cava is normal in size and collapses greater than 50% with inspiration. Pericardium/Pleural There is no evidence of pericardial effusion. Prior Study Comparison No prior study available for comparison. Measurements 2D Linear Measurements IVSd: 1.23 0.6-0.9/0.6-1.0 cm LVIDd: 4.53 3.9-5.3/4.2-5.9 cm LVIDd Index: 2.27 2.4-3.2/2.2-3.1 cm/m2 LVIDs: 3.05 2.0-3.6 cm LVPWd: 1.26 0.7-1.1 cm LA Diam: 3.60 2.7-3.8/3.0-4.0 cm LAIDs Index: 1.80 1.5-2.3 cm/m2 LV Mass: 263.11 67-162/88-224 g LV Mass Index: 131.55 43-95/49-115 g/m2 LVOT Diam: 2.20 3.0+(-)1.3 cm 2D Systolic Function EF 4C: 69.00 >55% EF 2C: 60.90 >55% EF BiP: 65.30 >55% Mitral Valve MV Pk E: 1.32 MV PK A: 1.35 MV Decel Time: 158.00 E/A: 1.00 E'Lateral: 8.16 E'Medial: 7.72 E/E' Med: 17.10 E/E' Lat: 16.20 PHT: 46.00 MVA PHT: 4.78 Decel [place]: 8.37 Aortic Valve AoV Pk Yonny: 3.70 AoV Mn Yonny: 2.61 AoV VTI: 0.75 AoV Pk Grad: 55.00 Aov Mn Grad: 31.00 JEWEL Cont.VTI: 1.11 LVOT LVOT Pk Yonny: 1.20 LVOT Mn Yonny: 0.83 LVOT VTI: 0.22 LVOT Pk Grad: 6.00 LVOT Mn Grad: 3.00 LVOT Diam: 2.20 LVOT Area: 2.84 Diastolic Function MV Pk E: 1.32 MV Pk A: 1.35 E/A: 1.00 E'Medial: 7.72 E/E' Med: 17.10 E' Laterial: 8.16 E/E' Lat: 16.20 Right Ventricle TAPSE (mm): 21.70 TVS' Yonny: 10.90 Tricuspid Valve RA Press: 8.00 Great Vessels Aorta Sinus of Valsalva: 3.10 2.0-3.[address] [place]: 2.68 1.7-3.4 cm Ao Asc: 3.00 2.1-3.4 cm Updated in Other Vendor System with Status of Final Wong Hogan MD electronically signed on 03/15/2023 1:26:09 PM with status of Final
[2023-03-15] MEDS: LORazepam 2 MG/ML VIAL IVPUSH (11:09)
[2023-03-15] MEDS: Magnesium Sulfate/H2O 2 GM/50 ML PIGGYBACK IV (11:10)
[2023-03-15] MEDS: methADONE HCl 20 MG/2 ML ORAL.CONC 140 MG PO (11:14)
--- NOTE | 2023-03-15 11:16 | PC.NURSE ---
Patient with bilateral redness to legs, inner things, and groin. Patient states this is new within the last week. Sinus tachy on monitor, cardiology in to see patient. BP low, provider notified with new orders to hold lasisk and nitro
[2023-03-15 12:06] LABS: Reflex Lactate? Lactic Acid Added
[2023-03-15] MEDS: Doxycycline Monohydrate 100 MG CAPSULE PO (12:32)
[2023-03-15] MEDS: Furosemide 20 MG/2 ML VIAL IVPUSH (12:32)
--- NOTE | 2023-03-15 12:38 | PC.NURSE ---
Sher placed IV lasiks given
--- NOTE | 2023-03-15 12:53 | P.CONCA_ITS ---
History of Present Illness History of Present Illness Date of Service: 03/15/23 Requesting physician: Katey Gray Chief complaint: CP, CHF Narrative: 57-year-old female with multiple comorbidities who is presenting with shortness of breath. She has a over the last week she developed worsening shortness of breath with edema over the lower extremities as well as orthopnea and PND. She also was experiencing some sharp chest pains. She has background history of polysubstance abuse including alcohol and drinks whiskey every day, history of heroin use and she is currently on methadone program. She also has history of cocaine use few months ago was the last time she used. She is saying she has been getting some sharp chest pain since last evening but also getting shortness of breath for close to a week. Chest x-ray has shown bibasilar infiltrates with concern for pleural effusions. EKG showing sinus tachycardia 117 beats per minute, rightward axis, incomplete right bundle-branch block, left atrial enlargement, nonspecific ST-T changes, QTC 460 milliseconds. Labs reviewed. Lactate 3.9. Magnesium 1.1. High sensitivity troponin 178. BNP 104. [facility] Past Medical History Medical History Shoulder pain Decreased vision of left eye Abnormal LFTs Bilateral pneumonia Polysubstance abuse Depression Substance abuse Physical exam Cocaine use disorder, moderate, dependence Tension headache Occipital headache Anxiety Diabetes UTI (urinary tract infection) Nausea & vomiting Sinusitis Pyelonephritis Cocaine abuse Cirrhosis Obesity Anxiety and depression Lightheaded Cranial nerve dysfunction Depression Anxiety Splenic vein thrombosis COPD (chronic obstructive pulmonary disease) Hypertension Nephrolithiasis Family History Family History Father No problems noted. Mother Diabetes Surgical History Surgical History H/O wrist surgery Social History Social History Household Members: Other Household Members Other:: son Housing: House Are you a primary medicare compliance auditor to a significant other at home: No Do you presently have visiting nurse or other home services: No Alcohol intake: current Alcohol intake frequency: 3 or more drinks per day Patient Tobacco Use Status: Current everyday Tobacco user Tobacco use type: Cigarette Cigarettes Per Day: 4 Years Smoked: 30+ Smoked in Last 30 Days: Yes e-Cigarette/Vaping Use: Never Used Second Hand Smoke Exposure: No Use of substances other than those prescribed or required for medical reasons: No Substance Use Type: Marijuana Advance Directives: No Advance Directives Information Provided: No service: No Current occupational status: disabled Sexual orientation: Straight/Heterosexual Gender identity: Female Cognitive needs: Yes Hearing needs: No Vision needs: No Meds Allergies Allergy/AdvReac Type Severity Reaction Status Date / Time acetaminophen [Vicodin] Allergy Unknown Unknown Verified 03/03/23 13:33 hydrocodone [Vicodin] Allergy Unknown Unknown Verified 03/03/23 13:33 sumatriptan [From IMITREX] Allergy Unknown VOMITING,RA Verified 03/03/23 13:33 Home Medications Medication Instructions Recorded Confirmed Last Taken Type methadone 10 mg/mL oral 140 mg PO DAILY 02/02/22 03/15/23 03/13/23 History concentrate (Methadone Intensol) pulse oximeter 02/03/22 01/07/23 Unknown History ipratropium 0.5 mg-albuterol 3 mg 3 ml inhalation Q4H PRN shortness 09/29/22 01/07/23 Unknown History (2.5 mg base)/3 mL nebulization of breath or wheezing soln Physical Exam 2 Vital Signs: Vital Signs: Last Vital Signs Pulse 107 H 03/15/23 12:00 Resp 18 03/15/23 12:00 BP 97/49 L 03/15/23 12:00 Pulse Ox 90 L 03/15/23 12:00 O2 Del Method Nasal Cannula 03/15/23 12:00 O2 Flow Rate 4 03/15/23 12:00 Oxygen Flow Rate 2 03/15/23 09:08 BMI result Body Mass Index 45.9 GENERAL APPEARANCE: Short of breath. On supplemental oxygen. NECK: no carotid bruit, positive jugular venous distention. SKIN: Erythema both lower extremities with edema. HEART: Systolic murmur aortic area-exam challenging due to wheezing., regular rate and rhythm. LUNGS: Expiratory wheezes with left basal crackles. ABDOMEN: soft, nontender. EXTREMITIES: 1 to 2+ edema. PERIPHERAL PULSES: equal. NEUROLOGIC: No gross deficits, AAO X 3 Objective Labs and Meds 03/15/23 09:58 03/15/23 09:58 Lab results: Laboratory Results - last 24 hr 03/15/23 03/15/23 09:58 10:05 WBC 9.0 RBC 3.55 L Hgb 11.2 L Hct 38.5 MCV 108.5 H MCH 31.5 MCHC 29.1 L RDW 19.9 H Plt Count 207 D MPV 10.6 Immature Gran % (Auto) 0.4 Neut % (Auto) 80.3 H Lymph % (Auto) 13.8 L [place] % (Auto) 4.8 Eos % (Auto) 0.3 Baso % (Auto) 0.4 Lymph # (Auto) 1.3 [place] # (Auto) 0.4 Eos # (Auto) 0.0 Baso # (Auto) 0.0 Abs Immat Gran (auto) 0.04 H Absolute Neuts (auto) 7.2 Absolute Nucleated RBC 0.000 Nucleated RBC % (auto) 0.0 PT 13.2 INR 1.1 APTT 28.0 VBG pH 7.42 VBG pCO2 50 VBG pO2 54 VBG HCO3 33 H VBG O2 Saturation 83.0 VBG Base Excess 7.5 Sodium 142 Potassium 3.7 Chloride 110 H Carbon Dioxide 24 Anion Gap 12 BUN 5 L Creatinine 0.56 Estim Creat Clear Calc 122.3 Estimated GFR > 60 Random Glucose 132 H Lactic Acid 3.9 H* Calcium 6.5 L D Magnesium 1.1 L* Total Bilirubin 0.3 AST 30 ALT 14 Alkaline Phosphatase 112 Troponin I High Sens 178.8 H* D B-Natriuretic Peptide 104 H Total Protein 4.6 L Albumin 1.9 L Influenza Type A (PCR) NEGATIVE Influenza Type B (PCR) NEGATIVE RSV RNA Qual (PCR) NEGATIVE SARS-CoV-2 RNA (RT-PCR) NEGATIVE Imaging Radiologist's impression: Impressions Venous Duplex 03/15/23 10:15 IMPRESSION: No DVT demonstrated in the right or left lower extremity. Chest X-Ray 03/15/23 10:35 IMPRESSION: 1. Bibasilar patchy opacities which may represent an combination of atelectasis, infiltrate, and/or effusion. 2. Small bilateral pleural effusions. Assessment and Plan (1) Elevated troponin: Status: Acute (2) Shortness of breath: Status: Acute Plan [age] year female with complex medical issues including diabetes, hypertension, hyperlipidemia, polysubstance abuse with active alcohol use who is presenting with shortness of breath and some features consistent with congestive heart failure. She has elevated JVD. She has peripheral edema. Echocardiography showing D shaped LV cavity with mild RV dilation and borderline dysfunction. She also has moderate to severe aortic valve stenosis. Her last echo was at [facility] in 2020 when she had moderate aortic valve stenosis. Mildly elevated troponin levels with no significant EKG changes and not anginal chest pain. Currently would not recommend heparin for this indication. I think she should be scan to rule out pulmonary embolism given RV dysfunction. She was given Lasix in the ER but I would limit for the Lasix given the fact that she also has some aortic stenosis and blood pressures are borderline. Her wheezing is not explained by congestive heart failure currently and I think she should be treated for COPD/pneumonia and CT chest will be helpful in understanding if she truly has pneumonia. Somewhat complex presentation. We will follow along and will give further recommendations as we gather more information. Thank you for allowing me to participate in the care of your patient. Please feel free to contact me if you have any questions. Time Spent With Patient Time: Total time managing care of this patient today ____ minutes. Procedures Date of Service Date of Service: 03/15/23
[2023-03-15 13:19] LABS: ~Lactic Acid-LAB USE ONLY 1.1 mmol/L (0.5-2.0)
--- NOTE | 2023-03-15 13:29 | PC.NURSE ---
Patient sating 88-89% on liters 02. Switched to oxymask at 6 liters and provider notified. Respiratory called.
[2023-03-15 13:33] LABS: Troponin-I High Sensitivity 717.5 ng/L (<3.5-17.0)
[2023-03-15 14:03] LABS: ABG Base Excess 11.5 mmol/L; ABG HCO3 40 mmol/L (22-26); ABG pCO2 76 mmHg (32-45); ABG pH 7.33 (7.35-7.45); ABG pO2 80 mmHg (83-108)
[2023-03-15 14:07] LABS: Ammonia 48 umol/L (13-55)
[2023-03-15] MEDS: iohexoL 350 MG/ML 100 ML INFUS..BTL 65 ML IV (14:47)
--- NOTE | 2023-03-15 15:07 | PC.NURSE ---
Patient placed on bipip by respiratory, seen by provider and bipap removed. Placed on oxymask at 3.5 liters patient sating 80%. O2 placed on 4 liters sating 88% sinus tachy on monitor
[2023-03-15 15:29] LABS: Amphetamine Screen Urine Not Detected (Not Detect); Barbiturates, Urine Not Detected (Not Detect); Benzodiazepines Screen Urine POSITIVE (Not Detect); Cannabinoid Screen Urine POSITIVE (Not Detect); Cocaine Screen Urine Not Detected (Not Detect); Fentanyl, urine Not Detected (Not Detect); Opiate Screen Urine Not Detected (Not Detect); Phencyclidine Screen Urine Not Detected (Not Detect)
[2023-03-15 15:29] LABS: Appearance Urine Clear; Color Urine Yellow; Glucose Urine UA Negative (Negative); Leukocyte Esterase Urine Negative (Negative); Nitrite Urine Negative (Negative); Specific Gravity - Urine <= 1.005 (1.005-1.025); Urine Blood Negative (Negative); Urine Ketones Negative (Negative); Urine Protein Negative (Neg-Trace)
--- NOTE | 2023-03-15 15:33 | PC.NURSE ---
Patient resting comfortably, 89% on 3 liters oxymask
[2023-03-15 15:55] LABS: ABG Base Excess 12.3 mmol/L; ABG HCO3 40 mmol/L (22-26); ABG pCO2 69 mmHg (32-45); ABG pH 7.37 (7.35-7.45); ABG pO2 78 mmHg (83-108)
--- NOTE | 2023-03-15 15:55 | PHA.MEDREC ---
Pharmacy Consult ? Medication Reconciliation Pharmacy has completed the medication reconciliation. Patient is difficult to arouse but arousable. Patient reported patient no longer on amlodipine. Baylee Zaldivar, PharmD
[2023-03-15] MEDS: acetaZOLAMIDE sodium 500 MG VIAL 250 MG IVPUSH (16:33)
[2023-03-15] MEDS: Albumin Human 25 % 100 ML IV ×2 (16:46→17:50)
[2023-03-15] MEDS: Heparin Sodium,Porcine 5,000 UNIT/ML VIAL 5000 UNIT SUBCUT (16:47)
--- NOTE | 2023-03-15 17:41 | PC.NURSE ---
During inventory of personal effects tech found bottle of clonapin and dark liquid in a bottle in patients purse. Patient had purse on bed with her for most of day. Patient denies taking clonapin and states the bottle has urine in it. Clonapin does not belong to patient. ICU MD notified with new orders to place patient back on bipap and hold off on transfer to ICU at this time. Respiratory at bedside and placed patient back on bipap. 90% on bipap. Patient turned and repositioned
--- NOTE | 2023-03-15 17:53 | PC.NURSE ---
Bipap setting IVAP 12, EPap 5, 12 respiration per minutes
--- NOTE | 2023-03-15 18:33 | PC.NURSE ---
Report given to ICU
[2023-03-15 19:14] LABS: Glucose, Whole Blood 72 mg/dL (60-115)
--- NOTE | 2023-03-15 19:41 | PM.CCHP ---
History of Present Illness Date of Service: 03/15/23 Attending physician on admission: Bernardino Mcnamara Chief Complaint: chest pain/shortness of breath The patient is a 57-year-old female with a past medical history of COPD ( 2 L O2 as needed at home),? aortic stenosis, congestive heart failure,? hypertension, polysubstance abuse (? on methadone), ? alcohol abuse, diabetes mellitus type 2, and anxiety? who presents to the emergency room with chest pain.? Patient reports x 3 days of worsening shortness of breath and last night she began having 10/10 chest pain. Patient reports that she drinks 3-4 nips per day of alcohol. Patient states that she has not used cocaine in over 2 months. ? ?On arrival in the emergency room tachycardic 110s,? tachypneic,? normotensive,? requiring 2 L via nasal cannula initially.? ?Laboratory data was significant for? lactic acid 3.9, Mag 1.1,? troponin 178.8 ,? BNP 104 and albumin 1.9 ?ABG:? 7.33/76/80/40 ?Toxicology positive for benzos and marijuana ?Imaging:? ?Chest CTA-? negative for pulmonary embolism, in size of pulmonary edema Venous duplex-? no DVT on bilateral lower extremities noted ED course? ?Patient? initially was hypoxic requiring? OxyMask but later required BiPAP support.? Received 40 of Lasix, Mag 2 g, Ativan 2 mg.? Review of Systems Review of Systems: as per HPI Yes all other systems are reviewed and are negative PMFSH Past Medical History Medical History Shoulder pain Decreased vision of left eye Abnormal LFTs Bilateral pneumonia Polysubstance abuse Depression Substance abuse Physical exam Cocaine use disorder, moderate, dependence Tension headache Occipital headache Anxiety Diabetes UTI (urinary tract infection) Nausea & vomiting Sinusitis Pyelonephritis Cocaine abuse Cirrhosis Obesity Anxiety and depression Lightheaded Cranial nerve dysfunction Depression Anxiety Splenic vein thrombosis COPD (chronic obstructive pulmonary disease) Hypertension Nephrolithiasis Family History Family History Father No problems noted. Mother Diabetes Surgical History Surgical History H/O wrist surgery Social History Social History Household Members: Other Household Members Other:: Son Housing: Apartment Are you a primary foster care social worker to a significant other at home: No Do you presently have visiting nurse or other home services: Yes Alcohol intake: current Alcohol intake frequency: 3 or more drinks per day Patient Tobacco Use Status: Current everyday Tobacco user Tobacco use type: Cigarette Cigarette Packs Per Day: 1 Cigarettes Per Day: 20.0 Years Smoked: 30+ Smoked in Last 30 Days: Yes e-Cigarette/Vaping Use: Never Used Patient Interested in Nicotine Replacement: Yes Patient Given Instructions on How to Stop Smoking: Yes Date Education Initiated: 03/15/23 Second Hand Smoke Exposure: No Use of substances other than those prescribed or required for medical reasons: Yes Substance Use Type: Marijuana Currently Displaying Signs/Symptoms of Drug Intoxication Withdrawal: No Have you been hit, kicked, punched, or otherwise hurt by someone within the past year? If so, by whom?: No Do you feel safe in your current relationship?: No Current Relationship Is there a partner from a previous relationship who is making you feel unsafe now?: No Are you made to feel afraid or neglected: No Advance Directives: No Advance Directives Information Provided: No Do you have thoughts of harming others: None Do you have a plan to hurt others: No Plan Recently lost weight without trying: Unsure Nutrition Risks: No Nutritional Risk Patient : No : No Poor oral hygiene: No service: No Current occupational status: disabled Sexual orientation: Straight/Heterosexual Gender identity: Female Cognitive needs: Yes Hearing needs: No Vision needs: No Meds Allergies Allergy/AdvReac Type Severity Reaction Status Date / Time acetaminophen [Vicodin] Allergy Unknown Unknown Verified 03/03/23 13:33 hydrocodone [Vicodin] Allergy Unknown Unknown Verified 03/03/23 13:33 sumatriptan [From IMITREX] Allergy Unknown VOMITING,RA Verified 03/03/23 13:33 SH Active Medications: Current Medications Acetazolamide (Acetazolamide Sodium 500 Mg Vial) 500 mg IVPUSH BID [facility] Heparin Sodium (Porcine) (Heparin Sodium,Porcine 5,000 Unit/Ml Vial) 5,000 unit SUBCUT Q8H [facility] Last Admin: 03/15/23 16:47 Dose: 5,000 unit Insulin Glargine (Insulin Glargine,Hum.Rec.Anlog 100 Unit/Ml 10 Ml Vial) 30 unit SUBCUT DAILY [facility] Insulin Human Lispro (Insulin Lispro 100 Unit/Ml 3 Ml Vial) 0 unit SUBCUT QIDACHS [facility]; Protocol Home Medications Medication Instructions Recorded Confirmed Last Taken Type methadone 10 mg/mL oral 140 mg PO DAILY 02/02/22 03/15/23 03/13/23 History concentrate (Methadone Intensol) pulse oximeter 02/03/22 01/07/23 Unknown History ipratropium 0.5 mg-albuterol 3 mg 3 ml inhalation Q4H PRN shortness 09/29/22 03/15/23 Unknown History (2.5 mg base)/3 mL nebulization of breath or wheezing soln omeprazole 40 mg capsule,delayed 40 mg PO DAILY@0630 03/15/23 03/15/23 03/15/23 History release Physical Exam Vital Signs: Vital Signs: Last Vital Signs Temp 99.7 F 03/15/23 19:00 Pulse 102 H 03/15/23 19:00 Resp 11 L 03/15/23 19:00 BP 110/58 L 03/15/23 19:00 Pulse Ox 95 03/15/23 19:00 O2 Del Method BiPAP 03/15/23 19:00 O2 Flow Rate 3 03/15/23 16:53 FiO2 35 03/15/23 19:00 Oxygen Flow Rate 2 03/15/23 09:08 BMI result Body Mass Index 45.6 ?General:? on BiPAP, Alert oriented x3 able to follow commands ?HEENT:? Head is normocephalic, atraumatic, pupils equal round reactive to light accommodation bilaterally.? Extraocular movements appear intact.? Buccal mucosa is dry, Neck is supple without lymphadenopathy. ?Cardiac:? Mid systolic murmur present. sinus rhythm on monitor. bilateral lower extremity trace edema. ?Pulmonary:? patient with significant wheezing on upper lobes, on BiPAP 12/5/35% ?Abdomen:? ?Abdomen soft, non-tender, non-distended. Normal bowel sounds. No pulsatile mass. No hepatosplenomegaly. ?Musculoskeletal:? Moving all 4 extremities upon request a major joints, there is no crepitus or tenderness.? The strength is 5/5 bilaterally and throughout all 4 extremities.? Gait not assessed at this point. ?Neurologic: No focal deficits noted.Motor strength as above.?? ?Skin:? bilateral lower extremity redness extending from ankle to thigh. No clubbing or cyanosis.? No ulcers. Vascular:? 2+ pulses upper and lower extremities distally.? Results Labs 03/16/23 04:45 03/16/23 04:45 Labs: Laboratory Results - last 24 hr 03/15/23 03/15/23 03/15/23 09:58 10:05 13:03 MCV 108.5 H MCH 31.5 MCHC 29.1 L RDW 19.9 H Plt Count 207 D MPV 10.6 Immature Gran % (Auto) 0.4 Neut % (Auto) 80.3 H Lymph % (Auto) 13.8 L [place] % (Auto) 4.8 Eos % (Auto) 0.3 Baso % (Auto) 0.4 Lymph # (Auto) 1.3 [place] # (Auto) 0.4 Eos # (Auto) 0.0 Baso # (Auto) 0.0 Abs Immat Gran (auto) 0.04 H Absolute Neuts (auto) 7.2 Absolute Nucleated RBC 0.000 Nucleated RBC % (auto) 0.0 PT 13.2 INR 1.1 APTT 28.0 O2 Saturation ABG pH at Pt Temp ABG pCO2 at Pt Temp ABG pO2 at Pt Temp ABG HCO3 ABG Base Excess (Actual) VBG pH 7.42 VBG pCO2 50 VBG pO2 54 VBG HCO3 33 H VBG O2 Saturation 83.0 VBG Base Excess 7.5 Anion Gap 12 Estim Creat Clear Calc 122.3 Estimated GFR > 60 POC Glucose Random Glucose 132 H Lactic Acid 3.9 H* Lactic Acid F/U @ 2Hr 1.1 Calcium 6.5 L D Magnesium 1.1 L* Total Bilirubin 0.3 AST 30 ALT 14 Alkaline Phosphatase 112 Ammonia B-Natriuretic Peptide 104 H Total Protein 4.6 L Albumin 1.9 L Urine Color Urine Appearance Urine pH Ur Specific [place] Urine Protein Urine Glucose (UA) Urine Ketones Urine Blood Urine Nitrite Ur Leukocyte Esterase Urine Opiates Screen Urine Fentanyl Screen Ur Barbiturates Screen Ur Phencyclidine Scrn Ur Amphetamines Screen U Benzodiazepines Scrn Urine Cocaine Screen U Marijuana (THC) Screen Influenza Type A (PCR) NEGATIVE Influenza Type B (PCR) NEGATIVE RSV RNA Qual (PCR) NEGATIVE SARS-CoV-2 RNA (RT-PCR) NEGATIVE 03/15/23 03/15/23 03/15/23 13:53 13:56 15:04 MCV MCH MCHC RDW Plt Count MPV Immature Gran % (Auto) Neut % (Auto) Lymph % (Auto) [place] % (Auto) Eos % (Auto) Baso % (Auto) Lymph # (Auto) [place] # (Auto) Eos # (Auto) Baso # (Auto) Abs Immat Gran (auto) Absolute Neuts (auto) Absolute Nucleated RBC Nucleated RBC % (auto) PT INR APTT O2 Saturation 94.0 ABG pH at Pt Temp 7.33 L ABG pCO2 at Pt Temp 76 H* ABG pO2 at Pt Temp 80 L ABG HCO3 40 H ABG Base Excess (Actual) 11.5 VBG pH VBG pCO2 VBG pO2 VBG HCO3 VBG O2 Saturation VBG Base Excess Anion Gap Estim Creat Clear Calc Estimated GFR POC Glucose Random Glucose Lactic Acid Lactic Acid F/U @ 2Hr Calcium Magnesium Total Bilirubin AST ALT Alkaline Phosphatase Ammonia 48 B-Natriuretic Peptide Total Protein Albumin Urine Color Urine Appearance Urine pH Ur Specific [place] Urine Protein Urine Glucose (UA) Urine Ketones Urine Blood Urine Nitrite Ur Leukocyte Esterase Urine Opiates Screen Not Detected Urine Fentanyl Screen Not Detected Ur Barbiturates Screen Not Detected Ur Phencyclidine Scrn Not Detected Ur Amphetamines Screen Not Detected U Benzodiazepines Scrn POSITIVE H Urine Cocaine Screen Not Detected U Marijuana (THC) Screen POSITIVE H Influenza Type A (PCR) Influenza Type B (PCR) RSV RNA Qual (PCR) SARS-CoV-2 RNA (RT-PCR) 03/15/23 03/15/23 03/15/23 15:05 15:47 19:09 MCV MCH MCHC RDW Plt Count MPV Immature Gran % (Auto) Neut % (Auto) Lymph % (Auto) [place] % (Auto) Eos % (Auto) Baso % (Auto) Lymph # (Auto) [place] # (Auto) Eos # (Auto) Baso # (Auto) Abs Immat Gran (auto) Absolute Neuts (auto) Absolute Nucleated RBC Nucleated RBC % (auto) PT INR APTT O2 Saturation 95.0 ABG pH at Pt Temp 7.37 ABG pCO2 at Pt Temp 69 H* ABG pO2 at Pt Temp 78 L ABG HCO3 40 H ABG Base Excess (Actual) 12.3 VBG pH VBG pCO2 VBG pO2 VBG HCO3 VBG O2 Saturation VBG Base Excess Anion Gap Estim Creat Clear Calc Estimated GFR POC Glucose 72 Random Glucose Lactic Acid Lactic Acid F/U @ 2Hr Calcium Magnesium Total Bilirubin AST ALT Alkaline Phosphatase Ammonia B-Natriuretic Peptide Total Protein Albumin Urine Color Yellow Urine Appearance Clear Urine pH 6.0 Ur Specific [place] <= 1.005 Urine Protein Negative Urine Glucose (UA) Negative Urine Ketones Negative Urine Blood Negative Urine Nitrite Negative Ur Leukocyte Esterase Negative Urine Opiates Screen Urine Fentanyl Screen Ur Barbiturates Screen Ur Phencyclidine Scrn Ur Amphetamines Screen U Benzodiazepines Scrn Urine Cocaine Screen U Marijuana (THC) Screen Influenza Type A (PCR) Influenza Type B (PCR) RSV RNA Qual (PCR) SARS-CoV-2 RNA (RT-PCR) Imaging Radiologist's Impressions: Impressions Venous Duplex 03/15/23 10:15 IMPRESSION: No DVT demonstrated in the right or left lower extremity. Chest X-Ray 03/15/23 10:35 IMPRESSION: 1. Bibasilar patchy opacities which may represent an combination of atelectasis, infiltrate, and/or effusion. 2. Small bilateral pleural effusions. Chest CTA 03/15/23 15:02 IMPRESSION: 1. No evidence of pulmonary embolism. 2. Right lower lobe consolidation with volume loss. 3. Trace dependent bilateral pleural effusions. 4. Cardiomegaly. 5. Hepatomegaly. Diffuse fatty change of liver. 6. Left adrenal adenoma. No further follow-up imaging recommended. VTE: negative. Assessment and Plan (1) Acute respiratory failure with hypoxia and hypercapnia: Status: Acute (2) Acute exacerbation of congestive heart failure: Status: Acute (3) COPD exacerbation: Status: Acute (4) Elevated troponin: Status: Acute (5) Elevated lactic acid level: Status: Acute (6) Alcohol abuse: Status: Acute (7) Polysubstance abuse: Status: Acute Plan Neuro:??? no acute issues Cardiac:?? ?CHF? exacerbation- ? patient with elevated BNP, has history of external cyst and evidence of pulmonary edema? in? imaging.? Received Lasix in the ED,? but due to history of aortic stenosis will avoid rapid diuresing.? Will use Diamox? instead.? ?Elevated troponin-? patient she came in with chest pain? and shortness of breath,? initial troponin 178? later 700, EKG with no acute changes,? she does not report chest pain anymore.? Cardiology was consulted by emergency room, do not believe it was? acute cardiac event.? Will continue? previous plan.? ?Elevated lactic- ? this is likely due to pulmonary edema,? lactic is trending down, ? no evidence of severe infection/ sepsis.? Pulmonary:?? Acute hypoxic and hypercapnic respiratory failure secondary to COPD exacerbation? and Congestive heart failure exacerbation.? Will give nebulized bronchodilators,? steroids and continue Diamox. ? Keep 02 saturation 88-92%.?? Renal:?? No acute issues? Endo:?? ?No acute issues GI:? No acute issues. ID: ? no acute issues ?Integumentary:? patient bilateral lower extremities with redness extending from ankle to thigh.? No evidence of infection at this time.? Duplex study negative for DVTs.? Heme/Onc:? No acute issues. Psych: ETOH abuse:? patient admits to drinking? 3-4? nips of alcohol a day, Will start? ETOH withdrawal prototol with Phenobarb, and add folic/thiamine Miscellaneous:? No acute issues. Diet:NPO? while on BiPAP ? prophylaxis: Heparin, No GI prophylaxis at this time Critical care time spent:? 60 minutes Case discussed with Dr Mcnamara Time Spent With Patient Time: Total time managing care of this patient today ____ minutes.
[2023-03-15] MEDS: Albuterol/Iprat 2.5/0.5MG 3 ML AMPUL.NEB INHALE (19:54)
[2023-03-15] MEDS: Dextrose 50 % 25 GM/50 ML SYRINGE IVPUSH (20:43)
[2023-03-15] MEDS: acetaZOLAMIDE sodium 500 MG VIAL IVPUSH (20:51)
[2023-03-15] MEDS: PHENobarbitaL sodium 130 MG/ML IM ONCE 182 MG IM (20:51)
[2023-03-15] MEDS: methylPREDNISolone Sod Succ 40 MG/ML VIAL IVPUSH (20:51)
[2023-03-15 21:06] LABS: Glucose, Whole Blood 158 mg/dL (60-115)
[2023-03-15 22:03] LABS: Anion Gap 15 (12-20); Blood Urea Nitrogen 8 mg/dL (9-16); Carbon Dioxide 34 mmol/L (22-29); Chloride 99 mmol/L (96-108); Creatinine Clr Calc Pharmacy 89.2; Estimated Glomerular Filt Rate > 60; Glucose Random 133 mg/dL (60-115); Magnesium 1.8 mg/dL (1.6-2.6); Phosphorus 3.6 mg/dL (2.7-4.5); Potassium 4.8 mmol/L (3.3-5.1); Sodium 143 mmol/L (135-145)
[2023-03-15 22:19] LABS: ABG Refer to POC result
[2023-03-15] MEDS: PHENobarbitaL sodium 130 MG/ML VIAL IM Q3Hx2 136 MG IM (23:30)
[2023-03-16] VITALS (27 sets, daily range): BP systolic 105–149; BP diastolic 54–89; PULSE 85–107; RESP 13–20; TEMP 35.9–36.9; O2SAT 83–97; BMI 43.4
[2023-03-16] MEDS: Heparin Sodium,Porcine 5,000 UNIT/ML VIAL 5000 UNIT SUBCUT ×3 (00:43→16:33)
[2023-03-16] MEDS: PHENobarbitaL sodium 130 MG/ML VIAL IM Q3Hx2 136 MG IM (02:34)
[2023-03-16 05:01] LABS: VBG Base Excess 13.8 mmol/L; VBG HCO3 42 mmol/L (22-26); VBG pCO2 71 mmHg; VBG pH 7.37 (7.32-7.43); VBG pO2 48 mmHg
[2023-03-16 05:02] LABS: Venous Blood Gas Refer to POC result
[2023-03-16 05:03] LABS: MANUAL DIFF FLAG NO
[2023-03-16 05:25] LABS: Albumin Level 3.2 g/dL (3.5-5.0); Anion Gap 14 (12-20); Blood Urea Nitrogen 9 mg/dL (9-16); Calcium 8.9 mg/dL (8.4-10.2); Carbon Dioxide 31 mmol/L (22-29); Chloride 101 mmol/L (96-108); Creatinine Clr Calc Pharmacy 85.9; Estimated Glomerular Filt Rate > 60; Glucose Random 148 mg/dL (60-115); Magnesium 1.9 mg/dL (1.6-2.6); Phosphorus 4.4 mg/dL (2.7-4.5); Potassium 5.3 mmol/L (3.3-5.1); Sodium 141 mmol/L (135-145)
[2023-03-16 06:04] LABS: Basophils Percent Auto 0.4 % (0-2); Eosinophils Percent Auto 0.1 % (0-4); Hemoglobin 10.3 g/dl (12.0-16.0); Imm Gran Abs Auto 0.03 X10*3/uL (0.00-0.03); Imm Gran Pct Auto 0.4 % (0.0-0.4); Lymphocytes Absolute Auto 0.6 X10*3/uL (1.2-4.9); Mean Corpuscular HGB Conc 27.8 g/dl (31.0-35.0); Mean Corpuscular Hemoglobin 31.1 pg (27.0-33.0); Mean Platelet Volume 11.1 fL (9.4-12.3); Monocytes Absolute Auto 0.2 X10*3/uL (0.1-1.2); Monocytes Percent Auto 3.4 % (2-11); Neutrophils Percent Auto 86.7 % (45-73); Platelet Count 176 X10*3/uL (160-400); Red Blood Count 3.31 X10*6/uL (4.20-5.50); Red Cell Distribution Width 19.9 % (11.0-16.0)
[2023-03-16 06:07] LABS: Mean Corpuscular Volume 111.8 fL (80.0-98.0)
[2023-03-16] MEDS: Albuterol/Iprat 2.5/0.5MG 3 ML AMPUL.NEB INHALE ×3 (06:30→18:58)
[2023-03-16] MEDS: acetaZOLAMIDE sodium 500 MG VIAL IVPUSH ×2 (07:38→21:52)
[2023-03-16] MEDS: methylPREDNISolone Sod Succ 40 MG/ML VIAL IVPUSH (07:38)
[2023-03-16 08:26] LABS: Troponin-I High Sensitivity 605.9 ng/L (<3.5-17.0)
[2023-03-16] MEDS: Furosemide 40 MG/4 ML VIAL IVPUSH (09:53)
[2023-03-16] MEDS: Folic Acid 1 MG TABLET PO (09:54)
[2023-03-16] MEDS: Thiamine HCL 100 MG TABLET PO (09:54)
[2023-03-16] MEDS: PHENobarbitaL 30 MG TABLET PO ×2 (09:54→21:02)
--- NOTE | 2023-03-16 10:11 | PM.PNCARD ---
Subjective Subjective Date of Service: 03/16/23 Interval history: Seen and examined at bedside. Somnolent but arousable. Currently in the ICU. Physical Exam Vital Signs: Last Vital Signs Temp 98.5 F 03/16/23 08:00 Pulse 92 03/16/23 10:00 Resp 16 03/16/23 10:00 BP 132/76 03/16/23 10:00 Pulse Ox 95 03/16/23 10:00 O2 Del Method Oxymask 03/16/23 10:00 O2 Flow Rate 3 03/16/23 10:00 FiO2 35 03/16/23 08:00 Oxygen Flow Rate 2 03/15/23 09:08 BMI result Body Mass Index 45.1 GENERAL APPEARANCE: in no acute distress, somnolent but arousable. NECK: no carotid bruit, no significant jugular venous distention. SKIN: no suspicious lesions, warm and dry. HEART: no murmurs, regular rate and rhythm. LUNGS: clear to auscultation bilaterally. Upper airway secretions. ABDOMEN: soft, nontender. EXTREMITIES: + edema. PERIPHERAL PULSES: equal. NEUROLOGIC: No gross deficits, AAO X 3 Objective Labs and Meds 03/16/23 04:45 03/16/23 04:45 Lab results: Laboratory Results - last 24 hr 03/15/23 03/15/23 03/15/23 09:58 10:05 13:03 WBC 9.0 RBC 3.55 L Hgb 11.2 L Hct 38.5 MCV 108.5 H MCH 31.5 MCHC 29.1 L RDW 19.9 H Plt Count 207 D MPV 10.6 Immature Gran % (Auto) 0.4 Neut % (Auto) 80.3 H Lymph % (Auto) 13.8 L [place] % (Auto) 4.8 Eos % (Auto) 0.3 Baso % (Auto) 0.4 Lymph # (Auto) 1.3 [place] # (Auto) 0.4 Eos # (Auto) 0.0 Baso # (Auto) 0.0 Abs Immat Gran (auto) 0.04 H Absolute Neuts (auto) 7.2 Absolute Nucleated RBC 0.000 Nucleated RBC % (auto) 0.0 PT 13.2 INR 1.1 APTT 28.0 O2 Saturation ABG pH at Pt Temp ABG pCO2 at Pt Temp ABG pO2 at Pt Temp ABG HCO3 ABG Base Excess (Actual) VBG pH 7.42 VBG pCO2 50 VBG pO2 54 VBG HCO3 33 H VBG O2 Saturation 83.0 VBG Base Excess 7.5 Sodium 142 Potassium 3.7 Chloride 110 H Carbon Dioxide 24 Anion Gap 12 BUN 5 L Creatinine 0.56 Estim Creat Clear Calc 122.3 Estimated GFR > 60 POC Glucose Random Glucose 132 H Lactic Acid 3.9 H* Lactic Acid F/U @ 2Hr 1.1 Calcium 6.5 L D Phosphorus Magnesium 1.1 L* Total Bilirubin 0.3 AST 30 ALT 14 Alkaline Phosphatase 112 Ammonia Troponin I High Sens 178.8 H* D 717.5 H* D B-Natriuretic Peptide 104 H Total Protein 4.6 L Albumin 1.9 L Urine Color Urine Appearance Urine pH Ur Specific [place] Urine Protein Urine Glucose (UA) Urine Ketones Urine Blood Urine Nitrite Ur Leukocyte Esterase Urine Opiates Screen Urine Fentanyl Screen Ur Barbiturates Screen Ur Phencyclidine Scrn Ur Amphetamines Screen U Benzodiazepines Scrn Urine Cocaine Screen U Marijuana (THC) Screen Influenza Type A (PCR) NEGATIVE Influenza Type B (PCR) NEGATIVE RSV RNA Qual (PCR) NEGATIVE SARS-CoV-2 RNA (RT-PCR) NEGATIVE 03/15/23 03/15/23 03/15/23 13:53 13:56 15:04 WBC RBC Hgb Hct MCV MCH MCHC RDW Plt Count MPV Immature Gran % (Auto) Neut % (Auto) Lymph % (Auto) [place] % (Auto) Eos % (Auto) Baso % (Auto) Lymph # (Auto) [place] # (Auto) Eos # (Auto) Baso # (Auto) Abs Immat Gran (auto) Absolute Neuts (auto) Absolute Nucleated RBC Nucleated RBC % (auto) PT INR APTT O2 Saturation 94.0 ABG pH at Pt Temp 7.33 L ABG pCO2 at Pt Temp 76 H* ABG pO2 at Pt Temp 80 L ABG HCO3 40 H ABG Base Excess (Actual) 11.5 VBG pH VBG pCO2 VBG pO2 VBG HCO3 VBG O2 Saturation VBG Base Excess Sodium Potassium Chloride Carbon Dioxide Anion Gap BUN Creatinine Estim Creat Clear Calc Estimated GFR POC Glucose Random Glucose Lactic Acid Lactic Acid F/U @ 2Hr Calcium Phosphorus Magnesium Total Bilirubin AST ALT Alkaline Phosphatase Ammonia 48 Troponin I High Sens B-Natriuretic Peptide Total Protein Albumin Urine Color Urine Appearance Urine pH Ur Specific [place] Urine Protein Urine Glucose (UA) Urine Ketones Urine Blood Urine Nitrite Ur Leukocyte Esterase Urine Opiates Screen Not Detected Urine Fentanyl Screen Not Detected Ur Barbiturates Screen Not Detected Ur Phencyclidine Scrn Not Detected Ur Amphetamines Screen Not Detected U Benzodiazepines Scrn POSITIVE H Urine Cocaine Screen Not Detected U Marijuana (THC) Screen POSITIVE H Influenza Type A (PCR) Influenza Type B (PCR) RSV RNA Qual (PCR) SARS-CoV-2 RNA (RT-PCR) 03/15/23 03/15/23 03/15/23 15:05 15:47 19:09 WBC RBC Hgb Hct MCV MCH MCHC RDW Plt Count MPV Immature Gran % (Auto) Neut % (Auto) Lymph % (Auto) [place] % (Auto) Eos % (Auto) Baso % (Auto) Lymph # (Auto) [place] # (Auto) Eos # (Auto) Baso # (Auto) Abs Immat Gran (auto) Absolute Neuts (auto) Absolute Nucleated RBC Nucleated RBC % (auto) PT INR APTT O2 Saturation 95.0 ABG pH at Pt Temp 7.37 ABG pCO2 at Pt Temp 69 H* ABG pO2 at Pt Temp 78 L ABG HCO3 40 H ABG Base Excess (Actual) 12.3 VBG pH VBG pCO2 VBG pO2 VBG HCO3 VBG O2 Saturation VBG Base Excess Sodium Potassium Chloride Carbon Dioxide Anion Gap BUN Creatinine Estim Creat Clear Calc Estimated GFR POC Glucose 72 Random Glucose Lactic Acid Lactic Acid F/U @ 2Hr Calcium Phosphorus Magnesium Total Bilirubin AST ALT Alkaline Phosphatase Ammonia Troponin I High Sens B-Natriuretic Peptide Total Protein Albumin Urine Color Yellow Urine Appearance Clear Urine pH 6.0 Ur Specific [place] <= 1.005 Urine Protein Negative Urine Glucose (UA) Negative Urine Ketones Negative Urine Blood Negative Urine Nitrite Negative Ur Leukocyte Esterase Negative Urine Opiates Screen Urine Fentanyl Screen Ur Barbiturates Screen Ur Phencyclidine Scrn Ur Amphetamines Screen U Benzodiazepines Scrn Urine Cocaine Screen U Marijuana (THC) Screen Influenza Type A (PCR) Influenza Type B (PCR) RSV RNA Qual (PCR) SARS-CoV-2 RNA (RT-PCR) 03/15/23 03/15/23 03/16/23 21:03 21:23 04:45 WBC 7.0 RBC 3.31 L Hgb 10.3 L Hct 37.0 MCV 111.8 H MCH 31.1 MCHC 27.8 L RDW 19.9 H Plt Count 176 MPV 11.1 Immature Gran % (Auto) 0.4 Neut % (Auto) 86.7 H Lymph % (Auto) 9.0 L [place] % (Auto) 3.4 Eos % (Auto) 0.1 Baso % (Auto) 0.4 Lymph # (Auto) 0.6 L [place] # (Auto) 0.2 Eos # (Auto) 0.0 Baso # (Auto) 0.0 Abs Immat Gran (auto) 0.03 Absolute Neuts (auto) 6.0 Absolute Nucleated RBC 0.000 Nucleated RBC % (auto) 0.0 PT INR APTT O2 Saturation ABG pH at Pt Temp ABG pCO2 at Pt Temp ABG pO2 at Pt Temp ABG HCO3 ABG Base Excess (Actual) VBG pH VBG pCO2 VBG pO2 VBG HCO3 VBG O2 Saturation VBG Base Excess Sodium 143 141 Potassium 4.8 D 5.3 H Chloride 99 101 Carbon Dioxide 34 H 31 H Anion Gap 15 14 BUN 8 L 9 Creatinine 0.76 0.79 Estim Creat Clear Calc 89.2 85.9 Estimated GFR > 60 > 60 POC Glucose 158 H Random Glucose 133 H 148 H Lactic Acid Lactic Acid F/U @ 2Hr Calcium 9.0 D 8.9 Phosphorus 3.6 4.4 Magnesium 1.8 1.9 Total Bilirubin AST ALT Alkaline Phosphatase Ammonia Troponin I High Sens B-Natriuretic Peptide Total Protein Albumin 3.2 L Urine Color Urine Appearance Urine pH Ur Specific [place] Urine Protein Urine Glucose (UA) Urine Ketones Urine Blood Urine Nitrite Ur Leukocyte Esterase Urine Opiates Screen Urine Fentanyl Screen Ur Barbiturates Screen Ur Phencyclidine Scrn Ur Amphetamines Screen U Benzodiazepines Scrn Urine Cocaine Screen U Marijuana (THC) Screen Influenza Type A (PCR) Influenza Type B (PCR) RSV RNA Qual (PCR) SARS-CoV-2 RNA (RT-PCR) 03/16/23 03/16/23 04:55 07:33 WBC RBC Hgb Hct MCV MCH MCHC RDW Plt Count MPV Immature Gran % (Auto) Neut % (Auto) Lymph % (Auto) [place] % (Auto) Eos % (Auto) Baso % (Auto) Lymph # (Auto) [place] # (Auto) Eos # (Auto) Baso # (Auto) Abs Immat Gran (auto) Absolute Neuts (auto) Absolute Nucleated RBC Nucleated RBC % (auto) PT INR APTT O2 Saturation ABG pH at Pt Temp ABG pCO2 at Pt Temp ABG pO2 at Pt Temp ABG HCO3 ABG Base Excess (Actual) VBG pH 7.37 VBG pCO2 71 VBG pO2 48 VBG HCO3 42 H VBG O2 Saturation 74.0 VBG Base Excess 13.8 Sodium Potassium Chloride Carbon Dioxide Anion Gap BUN Creatinine Estim Creat Clear Calc Estimated GFR POC Glucose Random Glucose Lactic Acid Lactic Acid F/U @ 2Hr Calcium Phosphorus Magnesium Total Bilirubin AST ALT Alkaline Phosphatase Ammonia Troponin I High Sens 605.9 H* B-Natriuretic Peptide Total Protein Albumin Urine Color Urine Appearance Urine pH Ur Specific [place] Urine Protein Urine Glucose (UA) Urine Ketones Urine Blood Urine Nitrite Ur Leukocyte Esterase Urine Opiates Screen Urine Fentanyl Screen Ur Barbiturates Screen Ur Phencyclidine Scrn Ur Amphetamines Screen U Benzodiazepines Scrn Urine Cocaine Screen U Marijuana (THC) Screen Influenza Type A (PCR) Influenza Type B (PCR) RSV RNA Qual (PCR) SARS-CoV-2 RNA (RT-PCR) Imaging Radiologist's impression: Impressions Venous Duplex 03/15/23 10:15 IMPRESSION: No DVT demonstrated in the right or left lower extremity. Chest X-Ray 03/15/23 10:35 IMPRESSION: 1. Bibasilar patchy opacities which may represent an combination of atelectasis, infiltrate, and/or effusion. 2. Small bilateral pleural effusions. Chest CTA 03/15/23 15:02 IMPRESSION: 1. No evidence of pulmonary embolism. 2. Right lower lobe consolidation with volume loss. 3. Trace dependent bilateral pleural effusions. 4. Cardiomegaly. 5. Hepatomegaly. Diffuse fatty change of liver. 6. Left adrenal adenoma. No further follow-up imaging recommended. VTE: negative. Progress Note: A&P Assessment and plan (1) Acute exacerbation of congestive heart failure: Status: Acute Plan 57-year-old female presenting with shortness of breath and clinical heart failure. She was given IV diuretics and at this point overall is improving. She still has upper airway secretions and has been coughing. She has known history of COPD. May benefit from antibiotics. Agree with IV diuretics for now. Overall does not appear to be significantly overloaded anymore. She is also on acetazolamide. ECHO has shown normal LV function with mild RV dilation. No PE was noticed on the CT scan. Thank you for allowing me to participate in the care of your patient. Please feel free to contact me if you have any questions. Time Spent With Patient Time: Total time managing care of this patient today ____ minutes. Procedures Date of Service Date of Service: 03/16/23
--- NOTE | 2023-03-16 10:30 | MHC.CM.PN ---
CM MET WITH PT AT BEDSIDE, LETHARGIC AND UNABLE TO PARTICIPATE IN ASSESSMENT. CM WAS UNABLE TO REACH DISTILLATION OPERATOR/[facility] [place] VIA TELEPHONE. PER CHART REVIEW, PT LIVES WITH SON AND HAS 20 HRS/DISTILLATION OPERATOR ASSIST PER WEEK. PT IS 02 [facility]ENDENT [facility] FROM [facility] AND USES [facility]. NO HCP ON FILE. PCP DR. CADET. CM WILL CONTINUE TO FOLLOW AND RE-APPROACH WHEN PT ABLE TO PARTICPATE.
--- NOTE | 2023-03-16 11:14 | P.PNCC_ITS ---
Subjective Subjective Date of Service: 03/16/23 Interval History: 57-year-old lady with underlying COPD on 2 L, moderate aortic stenosis, diastolic heart failure, hypertension, polysubstance abuse now on methadone, alcohol abuse, diabetes mellitus, anxiety admitted on 03/15/2023 with dyspnea and chest discomfort. Initial evaluation patient with exacerbation of underlying congestive heart failure with rising, and later down trending troponin. She started on empiric diuresis. Patient also administered her usual dose of methadone with additional benzodiazepines resulting in acute CO2 retention requiring BiPAP support and transfer to intensive care unit. Patient started on diuresis with acetazolamide 500 twice a day With significant improvement in her symptoms. Night titrated off BiPAP. with resolution of acute metabolic encephalopathy. Critical Care Time (minutes): 45 Physical Exam 2 Vital Signs: Vital Signs: Last Vital Signs Temp 98.5 F 03/16/23 08:00 Pulse 92 03/16/23 10:00 Resp 16 03/16/23 10:00 BP 132/76 03/16/23 10:00 Pulse Ox 95 03/16/23 10:00 O2 Del Method Oxymask 03/16/23 10:00 O2 Flow Rate 3 03/16/23 10:00 FiO2 35 03/16/23 08:00 Oxygen Flow Rate 2 03/15/23 09:08 BMI result Body Mass Index 43.4 Const: General: no acute distress, alert and awake Eyes: Sclerae: sclerae normal EOM: EOMs intact bilaterally Neck: Neck: Yes no lymphadenopathy, Yes trachea midline and Yes supple Resp: Effort & Inspection: normal respiratory effort and no respiratory distress Auscultation: crackles ( bilateral diffuse) Cardio: Rate: regular rate Rhythm: regular rhythm Heart sounds: no gallops, no murmurs and no rubs GI: Palpation (GI): Soft to palpation and Other GI palpation findings present ( Nontender) Auscultation: normal bowel sounds Extrem: General: No clubbing, No cyanosis and Yes edema ( 2+ bilateral) Objective Data Labs 03/16/23 04:45 03/16/23 04:45 Labs: Laboratory Results - last 24 hr 03/15/23 03/15/23 03/15/23 13:03 13:53 13:56 WBC RBC Hgb Hct MCV MCH MCHC RDW Plt Count MPV Immature Gran % (Auto) Neut % (Auto) Lymph % (Auto) [place] % (Auto) Eos % (Auto) Baso % (Auto) Lymph # (Auto) [place] # (Auto) Eos # (Auto) Baso # (Auto) Abs Immat Gran (auto) Absolute Neuts (auto) Absolute Nucleated RBC Nucleated RBC % (auto) O2 Saturation 94.0 ABG pH at Pt Temp 7.33 L ABG pCO2 at Pt Temp 76 H* ABG pO2 at Pt Temp 80 L ABG HCO3 40 H ABG Base Excess (Actual) 11.5 VBG pH VBG pCO2 VBG pO2 VBG HCO3 VBG O2 Saturation VBG Base Excess Sodium Potassium Chloride Carbon Dioxide Anion Gap BUN Creatinine Estim Creat Clear Calc Estimated GFR POC Glucose Random Glucose Lactic Acid F/U @ 2Hr 1.1 Calcium Phosphorus Magnesium Ammonia 48 Troponin I High Sens 717.5 H* D Albumin Urine Color Urine Appearance Urine pH Ur Specific [place] Urine Protein Urine Glucose (UA) Urine Ketones Urine Blood Urine Nitrite Ur Leukocyte Esterase Urine Opiates Screen Urine Fentanyl Screen Ur Barbiturates Screen Ur Phencyclidine Scrn Ur Amphetamines Screen U Benzodiazepines Scrn Urine Cocaine Screen U Marijuana (THC) Screen 03/15/23 03/15/23 03/15/23 15:04 15:05 15:47 WBC RBC Hgb Hct MCV MCH MCHC RDW Plt Count MPV Immature Gran % (Auto) Neut % (Auto) Lymph % (Auto) [place] % (Auto) Eos % (Auto) Baso % (Auto) Lymph # (Auto) [place] # (Auto) Eos # (Auto) Baso # (Auto) Abs Immat Gran (auto) Absolute Neuts (auto) Absolute Nucleated RBC Nucleated RBC % (auto) O2 Saturation 95.0 ABG pH at Pt Temp 7.37 ABG pCO2 at Pt Temp 69 H* ABG pO2 at Pt Temp 78 L ABG HCO3 40 H ABG Base Excess (Actual) 12.3 VBG pH VBG pCO2 VBG pO2 VBG HCO3 VBG O2 Saturation VBG Base Excess Sodium Potassium Chloride Carbon Dioxide Anion Gap BUN Creatinine Estim Creat Clear Calc Estimated GFR POC Glucose Random Glucose Lactic Acid F/U @ 2Hr Calcium Phosphorus Magnesium Ammonia Troponin I High Sens Albumin Urine Color Yellow Urine Appearance Clear Urine pH 6.0 Ur Specific [place] <= 1.005 Urine Protein Negative Urine Glucose (UA) Negative Urine Ketones Negative Urine Blood Negative Urine Nitrite Negative Ur Leukocyte Esterase Negative Urine Opiates Screen Not Detected Urine Fentanyl Screen Not Detected Ur Barbiturates Screen Not Detected Ur Phencyclidine Scrn Not Detected Ur Amphetamines Screen Not Detected U Benzodiazepines Scrn POSITIVE H Urine Cocaine Screen Not Detected U Marijuana (THC) Screen POSITIVE H 03/15/23 03/15/23 03/15/23 19:09 21:03 21:23 WBC RBC Hgb Hct MCV MCH MCHC RDW Plt Count MPV Immature Gran % (Auto) Neut % (Auto) Lymph % (Auto) [place] % (Auto) Eos % (Auto) Baso % (Auto) Lymph # (Auto) [place] # (Auto) Eos # (Auto) Baso # (Auto) Abs Immat Gran (auto) Absolute Neuts (auto) Absolute Nucleated RBC Nucleated RBC % (auto) O2 Saturation ABG pH at Pt Temp ABG pCO2 at Pt Temp ABG pO2 at Pt Temp ABG HCO3 ABG Base Excess (Actual) VBG pH VBG pCO2 VBG pO2 VBG HCO3 VBG O2 Saturation VBG Base Excess Sodium 143 Potassium 4.8 D Chloride 99 Carbon Dioxide 34 H Anion Gap 15 BUN 8 L Creatinine 0.76 Estim Creat Clear Calc 89.2 Estimated GFR > 60 POC Glucose 72 158 H Random Glucose 133 H Lactic Acid F/U @ 2Hr Calcium 9.0 D Phosphorus 3.6 Magnesium 1.8 Ammonia Troponin I High Sens Albumin Urine Color Urine Appearance Urine pH Ur Specific [place] Urine Protein Urine Glucose (UA) Urine Ketones Urine Blood Urine Nitrite Ur Leukocyte Esterase Urine Opiates Screen Urine Fentanyl Screen Ur Barbiturates Screen Ur Phencyclidine Scrn Ur Amphetamines Screen U Benzodiazepines Scrn Urine Cocaine Screen U Marijuana (THC) Screen 03/16/23 03/16/23 03/16/23 04:45 04:55 07:33 WBC 7.0 RBC 3.31 L Hgb 10.3 L Hct 37.0 MCV 111.8 H MCH 31.1 MCHC 27.8 L RDW 19.9 H Plt Count 176 MPV 11.1 Immature Gran % (Auto) 0.4 Neut % (Auto) 86.7 H Lymph % (Auto) 9.0 L [place] % (Auto) 3.4 Eos % (Auto) 0.1 Baso % (Auto) 0.4 Lymph # (Auto) 0.6 L [place] # (Auto) 0.2 Eos # (Auto) 0.0 Baso # (Auto) 0.0 Abs Immat Gran (auto) 0.03 Absolute Neuts (auto) 6.0 Absolute Nucleated RBC 0.000 Nucleated RBC % (auto) 0.0 O2 Saturation ABG pH at Pt Temp ABG pCO2 at Pt Temp ABG pO2 at Pt Temp ABG HCO3 ABG Base Excess (Actual) VBG pH 7.37 VBG pCO2 71 VBG pO2 48 VBG HCO3 42 H VBG O2 Saturation 74.0 VBG Base Excess 13.8 Sodium 141 Potassium 5.3 H Chloride 101 Carbon Dioxide 31 H Anion Gap 14 BUN 9 Creatinine 0.79 Estim Creat Clear Calc 85.9 Estimated GFR > 60 POC Glucose Random Glucose 148 H Lactic Acid F/U @ 2Hr Calcium 8.9 Phosphorus 4.4 Magnesium 1.9 Ammonia Troponin I High Sens 605.9 H* Albumin 3.2 L Urine Color Urine Appearance Urine pH Ur Specific [place] Urine Protein Urine Glucose (UA) Urine Ketones Urine Blood Urine Nitrite Ur Leukocyte Esterase Urine Opiates Screen Urine Fentanyl Screen Ur Barbiturates Screen Ur Phencyclidine Scrn Ur Amphetamines Screen U Benzodiazepines Scrn Urine Cocaine Screen U Marijuana (THC) Screen Progress Note: A&P Assessment and plan (1) Alcohol abuse: Status: Acute (2) Acute respiratory failure with hypoxia and hypercapnia: Status: Acute (3) Acute exacerbation of congestive heart failure: Status: Acute (4) Polysubstance abuse: Status: Acute (5) Type 2 diabetes mellitus with hyperglycemia: Status: Acute (6) Acute metabolic encephalopathy: Status: Acute (7) Obesity: Status: Acute (8) History of chronic carbon dioxide retention: Status: Acute Plan Assessment: 57-year-old lady with underlying obesity, diastolic dysfunction, COPD on 2 L of O2, polysubstance abuse admitted with dyspnea secondary to acute on chronic hypoxic respiratory failure with CO2 retention and exacerbation of underlying congestive heart failure, further complicated by acute metabolic encephalopathy from CO2 narcosis/over-sedation with benzodiazepines. Plan: Neuro: Acute metabolic encephalopathy secondary to CO2 narcosis and benzodiazepines, resolved. Underlying alcohol abuse, now on CIWA protocol with phenobarbital. Underlying polysubstance abuse, methadone held secondary to over-sedation. Cardiac: acute on chronic diastolic congestive heart failure improving with diuresis. Cardiology service care appreciated. 2D echocardiogram with underlying moderate aortic stenosis. Pulmonary: Acute on chronic hypoxic and hypercapnic respiratory failure requiring BiPAP support initially, now titrated off. Underlying CO2 retention, continue to maintain O2 sat of 88-92%. Renal: No acute issues. Endo: No acute issues. GI: No acute issues. ID: No acute issues Heme/Onc: No acute issues. Psych: No acute issues. Miscellaneous: No acute issues. Prophylaxis: heparin Diet: regular Critical care time spent: 45 minutes Quality Stroke Does the patient have a stroke diagnosis?: No VTE Prior VTE?: No VTE Risk Level:: Medical - moderate - high VTE Device Contraindication: Treatment Not Indicated VTE Drug Contraindication: N/A - Med Ordered
[2023-03-16 11:21] LABS: Glucose, Whole Blood 157 mg/dL (60-115)
[2023-03-16] MEDS: Insulin Glargine,Hum.rec.anlog 100 UNIT/ML 10 ML VIAL 30 UNIT SUBCUT (12:58)
[2023-03-16] MEDS: Insulin Lispro 100 UNIT/ML 3 ML VIAL SUBCUT ×2 (12:59→16:33)
[2023-03-16 13:10] LABS: ABG Base Excess 11.6 mmol/L; ABG HCO3 39 mmol/L (22-26); ABG pCO2 66 mmHg (32-45); ABG pH 7.38 (7.35-7.45); ABG pO2 72 mmHg (83-108)
[2023-03-16 15:06] LABS: ABG Refer to POC result
[2023-03-16 16:20] LABS: Glucose, Whole Blood 219 mg/dL (60-115)
[2023-03-16] MEDS: methADONE HCl 20 MG/2 ML ORAL.CONC 140 MG PO (16:32)
[2023-03-16] MEDS: Sucralfate 1 GM TABLET PO ×2 (16:33→21:03)
[2023-03-16 20:01] LABS: Glucose, Whole Blood 135 mg/dL (60-115)
[2023-03-16] MEDS: Prazosin HCL 1 MG CAPSULE 3 MG PO (21:02)
[2023-03-16] MEDS: Mirtazapine 30 MG TABLET PO (21:03)
[2023-03-16] MEDS: Gabapentin 300 MG CAPSULE PO (21:03)
[2023-03-16] MEDS: metFORMIN HCl 500 MG TABLET PO (21:03)
[2023-03-16] MEDS: Docusate Sodium 100 MG CAPSULE PO (21:03)
[2023-03-17] VITALS (9 sets, daily range): BP systolic 124–149; BP diastolic 60–70; PULSE 90–111; RESP 16–20; TEMP 36–36.9; O2SAT 91–99; BMI 41.5
[2023-03-17] MEDS: Heparin Sodium,Porcine 5,000 UNIT/ML VIAL 5000 UNIT SUBCUT ×3 (02:09→17:12)
[2023-03-17] MEDS: Omeprazole 40 MG CAPSULE.DR PO (06:45)
[2023-03-17 06:46] LABS: Venous Blood Gas Refer to POC result
[2023-03-17 06:47] LABS: VBG Base Excess 10.9 mmol/L; VBG HCO3 37 mmol/L (22-26); VBG pCO2 57 mmHg; VBG pH 7.41 (7.32-7.43); VBG pO2 138 mmHg
[2023-03-17 07:17] LABS: MANUAL DIFF FLAG NO
[2023-03-17 07:18] LABS: Glucose, Whole Blood 118 mg/dL (60-115)
[2023-03-17 07:23] LABS: Basophils Percent Auto 0.6 % (0-2); Eosinophils Absolute Auto 0.1 X10*3/uL (0.0-0.4); Eosinophils Percent Auto 1.5 % (0-4); Hemoglobin 10.2 g/dl (12.0-16.0); Imm Gran Abs Auto 0.02 X10*3/uL (0.00-0.03); Imm Gran Pct Auto 0.4 % (0.0-0.4); Lymphocytes Absolute Auto 1.1 X10*3/uL (1.2-4.9); Lymphocytes Percent Auto 19.9 % (20-40); Mean Corpuscular HGB Conc 28.3 g/dl (31.0-35.0); Mean Corpuscular Hemoglobin 30.9 pg (27.0-33.0); Mean Corpuscular Volume 109.1 fL (80.0-98.0); Mean Platelet Volume 10.1 fL (9.4-12.3); Monocytes Absolute Auto 0.2 X10*3/uL (0.1-1.2); Monocytes Percent Auto 4.3 % (2-11); Neutrophils Absolute Auto 3.9 x10*3/uL (2.0-8.3); Neutrophils Percent Auto 73.3 % (45-73); Platelet Count 168 X10*3/uL (160-400); Red Cell Distribution Width 19.5 % (11.0-16.0); White Blood Count 5.3 X10*3/uL (4.8-10.8)
[2023-03-17] MEDS: Albuterol/Iprat 2.5/0.5MG 3 ML AMPUL.NEB INHALE ×3 (07:23→19:27)
[2023-03-17 07:39] LABS: Anion Gap 13 (12-20); Blood Urea Nitrogen 15 mg/dL (9-16); Carbon Dioxide 30 mmol/L (22-29); Chloride 100 mmol/L (96-108); Creatinine Clr Calc Pharmacy 81.7; Estimated Glomerular Filt Rate > 60; Glucose Random 112 mg/dL (60-115); Magnesium 1.8 mg/dL (1.6-2.6); Phosphorus 3.4 mg/dL (2.7-4.5); Potassium 3.9 mmol/L (3.3-5.1); Sodium 139 mmol/L (135-145)
[2023-03-17] MEDS: Sucralfate 1 GM TABLET PO ×4 (08:10→20:37)
[2023-03-17] MEDS: acetaZOLAMIDE sodium 500 MG VIAL IVPUSH ×2 (08:19→20:36)
[2023-03-17] MEDS: polyethylene glycoL 3350 17 GM POWD.PACK PO (08:19)
[2023-03-17] MEDS: Insulin Glargine,Hum.rec.anlog 100 UNIT/ML 10 ML VIAL 30 UNIT SUBCUT (08:19)
[2023-03-17] MEDS: Gabapentin 300 MG CAPSULE PO ×3 (08:20→20:36)
[2023-03-17] MEDS: Nicotine 7 MG PATCH.TD24 TRANSDERMA (08:20)
[2023-03-17] MEDS: Aspirin Enteric Coated 81 MG TABLET.DR PO (08:20)
[2023-03-17] MEDS: Docusate Sodium 100 MG CAPSULE PO ×2 (08:20→20:37)
[2023-03-17] MEDS: Thiamine HCL 100 MG TABLET PO (08:20)
[2023-03-17] MEDS: lisinopriL 5 MG TABLET PO (08:20)
[2023-03-17] MEDS: PHENobarbitaL 30 MG TABLET PO ×2 (08:20→20:37)
[2023-03-17] MEDS: Folic Acid 1 MG TABLET PO (08:20)
[2023-03-17] MEDS: metFORMIN HCl 500 MG TABLET PO ×2 (08:20→20:36)
[2023-03-17] MEDS: methADONE HCl 20 MG/2 ML ORAL.CONC 140 MG PO (08:21)
--- NOTE | 2023-03-17 10:44 | PM.PNCARD ---
Subjective Subjective Date of Service: 03/17/23 Interval history: Seen examined at bedside. Feeling better. Physical Exam Vital Signs: Last Vital Signs Temp 97.4 F 03/17/23 07:12 Pulse 91 03/17/23 07:26 Resp 16 03/17/23 07:26 BP 124/70 03/17/23 07:12 Pulse Ox 97 03/17/23 07:12 O2 Del Method Nasal Cannula 03/17/23 07:12 O2 Flow Rate 5 03/17/23 07:12 FiO2 35 03/16/23 08:00 Oxygen Flow Rate 2 03/15/23 09:08 BMI result Body Mass Index 41.5 GENERAL APPEARANCE: in no acute distress, awake. NECK: no carotid bruit, + jugular venous distention. SKIN: no suspicious lesions, warm and dry. HEART: no murmurs, regular rate and rhythm. LUNGS: clear to auscultation bilaterally. ABDOMEN: soft, nontender. EXTREMITIES: + edema. PERIPHERAL PULSES: equal. NEUROLOGIC: No gross deficits, AAO X 3 Objective Labs and Meds 03/17/23 06:38 03/17/23 06:38 Lab results: Laboratory Results - last 24 hr 03/16/23 03/16/23 03/16/23 04:45 11:17 13:04 WBC RBC Hgb Hct MCV MCH MCHC RDW Plt Count MPV Immature Gran % (Auto) Neut % (Auto) Lymph % (Auto) Nicholas % (Auto) Eos % (Auto) Baso % (Auto) Lymph # (Auto) Nicholas # (Auto) Eos # (Auto) Baso # (Auto) Abs Immat Gran (auto) Absolute Neuts (auto) Absolute Nucleated RBC Nucleated RBC % (auto) Smear Path Review O2 Saturation 92.0 ABG pH at Pt Temp 7.38 ABG pCO2 at Pt Temp 66 H* ABG pO2 at Pt Temp 72 L ABG HCO3 39 H ABG Base Excess (Actual) 11.6 VBG pH VBG pCO2 VBG pO2 VBG HCO3 VBG O2 Saturation VBG Base Excess Sodium Potassium Chloride Carbon Dioxide Anion Gap BUN Creatinine Estim Creat Clear Calc Estimated GFR POC Glucose 157 H Random Glucose Calcium Phosphorus Magnesium Albumin 03/16/23 03/16/23 03/17/23 16:16 19:57 06:38 WBC 5.3 RBC 3.30 L Hgb 10.2 L Hct 36.0 L MCV 109.1 H MCH 30.9 MCHC 28.3 L RDW 19.5 H Plt Count 168 MPV 10.1 Immature Gran % (Auto) 0.4 Neut % (Auto) 73.3 H Lymph % (Auto) 19.9 L Nicholas % (Auto) 4.3 Eos % (Auto) 1.5 Baso % (Auto) 0.6 Lymph # (Auto) 1.1 L Nicholas # (Auto) 0.2 Eos # (Auto) 0.1 Baso # (Auto) 0.0 Abs Immat Gran (auto) 0.02 Absolute Neuts (auto) 3.9 Absolute Nucleated RBC 0.000 Nucleated RBC % (auto) 0.0 Smear Path Review O2 Saturation ABG pH at Pt Temp ABG pCO2 at Pt Temp ABG pO2 at Pt Temp ABG HCO3 ABG Base Excess (Actual) VBG pH VBG pCO2 VBG pO2 VBG HCO3 VBG O2 Saturation VBG Base Excess Sodium 139 Potassium 3.9 D Chloride 100 Carbon Dioxide 30 H Anion Gap 13 BUN 15 Creatinine 0.79 Estim Creat Clear Calc 81.7 Estimated GFR > 60 POC Glucose 219 H 135 H Random Glucose 112 Calcium 9.0 Phosphorus 3.4 Magnesium 1.8 Albumin 3.0 L 03/17/23 03/17/23 06:39 07:14 WBC RBC Hgb Hct MCV MCH MCHC RDW Plt Count MPV Immature Gran % (Auto) Neut % (Auto) Lymph % (Auto) Nicholas % (Auto) Eos % (Auto) Baso % (Auto) Lymph # (Auto) Nicholas # (Auto) Eos # (Auto) Baso # (Auto) Abs Immat Gran (auto) Absolute Neuts (auto) Absolute Nucleated RBC Nucleated RBC % (auto) Smear Path Review O2 Saturation ABG pH at Pt Temp ABG pCO2 at Pt Temp ABG pO2 at Pt Temp ABG HCO3 ABG Base Excess (Actual) VBG pH 7.41 VBG pCO2 57 VBG pO2 138 VBG HCO3 37 H VBG O2 Saturation 100.0 VBG Base Excess 10.9 Sodium Potassium Chloride Carbon Dioxide Anion Gap BUN Creatinine Estim Creat Clear Calc Estimated GFR POC Glucose 118 H Random Glucose Calcium Phosphorus Magnesium Albumin Progress Note: A&P Assessment and plan (1) CHF (congestive heart failure): Status: Acute Plan [age] year female presenting with acute diastolic congestive heart failure. She has been diuresed and is improving. Still has JVD and will give her 40 mg IV Lasix along with acetazolamide 500 mg twice a day. I think acetazolamide can be discontinued after today. Hopefully she should be able to be transitioned to oral diuretics soon. Thank you for allowing me to participate in the care of your patient. Please feel free to contact me if you have any questions. Time Spent With Patient Time: Total time managing care of this patient today ____ minutes. Progress Note: Quality Stroke Does the patient have a stroke diagnosis?: No Procedures Date of Service Date of Service: 03/17/23
[2023-03-17 11:09] LABS: Glucose, Whole Blood 155 mg/dL (60-115)
[2023-03-17] MEDS: Furosemide 40 MG/4 ML VIAL IVPUSH (12:44)
[2023-03-17] MEDS: Insulin Lispro 100 UNIT/ML 3 ML VIAL SUBCUT ×2 (12:44→20:37)
--- NOTE | 2023-03-17 13:01 | MHC.CM.PN ---
PT is recommending home with services;CM will continue to follow.
--- NOTE | 2023-03-17 13:06 | P.PNIM_ITS ---
Subjective Subjective Date of Service: 03/17/23 Interval History: Seen and evaluated Feels better overall but still dyspneic and requiring O2 supplement No fever or chills Review of Systems Review of Systems: Yes all other systems are reviewed and are negative Physical Exam 2 Vital Signs: Vital Signs: Last Vital Signs Temp 98.2 F 03/17/23 11:04 Pulse 94 03/17/23 11:04 Resp 20 03/17/23 11:04 BP 132/60 03/17/23 11:04 Pulse Ox 92 03/17/23 11:04 O2 Del Method Nasal Cannula 03/17/23 11:04 O2 Flow Rate 2 03/17/23 11:04 FiO2 35 03/16/23 08:00 Oxygen Flow Rate 2 03/15/23 09:08 BMI result Body Mass Index 41.5 Const: Other: Constitutional : Awake, interactive, not in distress Neck : Normal inspection, Supple Cardiovascular : RRR, no JVP, +1 lower extremity edema Respiratory : decreased bilateral air entry, no crackles, expiratory wheezes Gastrointestinal: soft, lax, Normal bowel sounds, Non tender Skin : Warm, Dry Neurological : Alert & oriented x3, No focal deficit Objective Data Active Medications Acetazolamide (Acetazolamide Sodium 500 Mg Vial) 500 mg IVPUSH BID [facility] Last Admin: 03/17/23 08:19 Dose: 500 mg Documented By: KIMBERLEY Albuterol/Ipratropium (Albuterol/Iprat 2.5/0.5mg 3 Ml Ampul.Neb) 3 ml INHALE RQ6H WHILE AWAKE [facility] Last Admin: 03/17/23 07:23 Dose: 3 ml Documented By: ROXANNE Aspirin (Aspirin Enteric Coated 81 Mg Tablet.Dr) 81 mg PO DAILY [facility] Last Admin: 03/17/23 08:20 Dose: 81 mg Documented By: KIMBERLEY Docusate Sodium (Docusate Sodium 100 Mg Capsule) 100 mg PO BID [facility] Last Admin: 03/17/23 08:20 Dose: 100 mg Documented By: KIMBERLEY Folic Acid (Folic Acid 1 Mg Tablet) 1 mg PO DAILY [facility] Last Admin: 03/17/23 08:20 Dose: 1 mg Documented By: KIMBERLEY Furosemide (Furosemide 40 Mg/4 Ml Vial) 40 mg IVPUSH DAILY [facility]; Protocol Last Admin: 03/17/23 12:44 Dose: 40 mg Documented By: KIMBERLEY Gabapentin (Gabapentin 300 Mg Capsule) 300 mg PO TID [facility] Last Admin: 03/17/23 08:20 Dose: 300 mg Documented By: KIMBERLEY Heparin Sodium (Porcine) (Heparin Sodium,Porcine 5,000 Unit/Ml Vial) 5,000 unit SUBCUT Q8H [facility] Last Admin: 03/17/23 08:20 Dose: 5,000 unit Documented By: KIMBERLEY Insulin Glargine (Insulin Glargine,Hum.Rec.Anlog 100 Unit/Ml 10 Ml Vial) 30 unit SUBCUT DAILY [facility] Last Admin: 03/17/23 08:19 Dose: 30 unit Documented By: KIMBERLEY Insulin Human Lispro (Insulin Lispro 100 Unit/Ml 3 Ml Vial) 0 unit SUBCUT QIDACHS [facility]; Protocol Last Admin: 03/17/23 12:44 Dose: 2 unit Documented By: KIMBERLEY Lisinopril (Lisinopril 5 Mg Tablet) 5 mg PO DAILY [facility]; Protocol Last Admin: 03/17/23 08:20 Dose: 5 mg Documented By: KIMBERLEY Metformin HCl (Metformin Hcl 500 Mg Tablet) 500 mg PO BID [facility] Last Admin: 03/17/23 08:20 Dose: 500 mg Documented By: KIMBERLEY Methadone HCl (Methadone Hcl 20 Mg/2 Ml Oral.Conc) 140 mg PO DAILY [facility] Last Admin: 03/17/23 08:21 Dose: 140 mg Documented By: KIMBERLEY Mirtazapine (Mirtazapine 30 Mg Tablet) 30 mg PO BEDTIME [facility] Last Admin: 03/16/23 21:03 Dose: 30 mg Documented By: CASSI Nicotine (Nicotine 7 Mg Patch.Td24) 7 mg TRANSDERMA DAILY [facility] Last Admin: 03/17/23 08:20 Dose: 7 mg Documented By: KIMBERLEY Omeprazole (Omeprazole 40 Mg Capsule.Dr) 40 mg PO DAILY@0630 [facility] Last Admin: 03/17/23 06:45 Dose: 40 mg Documented By: CASSI Pharmacy Consult (Consult Rx Etoh Phenob Im/Po) 1 each MISCELLANE ONCE PRN; Protocol PRN Reason: Consult order Phenobarbital (Phenobarbital 30 Mg Tablet) 30 mg PO BID [facility] Stop: 03/17/23 21:01 Last Admin: 03/17/23 08:20 Dose: 30 mg Documented By: KIMBERLEY Phenobarbital (Phenobarbital 15 Mg Tablet) 15 mg PO BID [facility] Stop: 03/19/23 21:01 Phenobarbital (Phenobarbital 15 Mg Tablet) 15 mg PO DAILY [facility] Stop: 03/21/23 09:01 Polyethylene Glycol (Polyethylene Glycol 3350 17 Gm Powd.Pack) 17 gm PO DAILY [facility] Last Admin: 03/17/23 08:19 Dose: 17 gm Documented By: KIMBERLEY Prazosin HCl (Prazosin Hcl 1 Mg Capsule) 3 mg PO BEDTIME [facility]; Protocol Last Admin: 03/16/23 21:02 Dose: 3 mg Documented By: CASSI Quetiapine Fumarate (Quetiapine Fumarate 25 Mg Tablet) 12.5 mg PO Q4H PRN PRN Reason: anxiety Sucralfate (Sucralfate 1 Gm Tablet) 1 gm PO QIDACHS [facility] Last Admin: 03/17/23 12:44 Dose: 1 gm Documented By: KIMBERLEY Thiamine HCl (Thiamine Hcl 100 Mg Tablet) 100 mg PO DAILY [facility] Last Admin: 03/17/23 08:20 Dose: 100 mg Documented By: KIMBERLEY Labs 03/17/23 06:38 03/17/23 06:38 Labs: Laboratory Results - last 24 hr 03/16/23 03/16/23 03/16/23 04:45 13:04 16:16 MCV MCH MCHC RDW Plt Count MPV Immature Gran % (Auto) Neut % (Auto) Lymph % (Auto) Whitley % (Auto) Eos % (Auto) Baso % (Auto) Lymph # (Auto) Whitley # (Auto) Eos # (Auto) Baso # (Auto) Abs Immat Gran (auto) Absolute Neuts (auto) Absolute Nucleated RBC Nucleated RBC % (auto) Smear Path Review O2 Saturation 92.0 ABG pH at Pt Temp 7.38 ABG pCO2 at Pt Temp 66 H* ABG pO2 at Pt Temp 72 L ABG HCO3 39 H ABG Base Excess (Actual) 11.6 VBG pH VBG pCO2 VBG pO2 VBG HCO3 VBG O2 Saturation VBG Base Excess Anion Gap Estim Creat Clear Calc Estimated GFR POC Glucose 219 H Random Glucose Calcium Phosphorus Magnesium Albumin 11/06/0703/17/23 03/17/23 19:57 06:38 06:39 MCV 109.1 H MCH 30.9 MCHC 28.3 L RDW 19.5 H Plt Count 168 MPV 10.1 Immature Gran % (Auto) 0.4 Neut % (Auto) 73.3 H Lymph % (Auto) 19.9 L Whitley % (Auto) 4.3 Eos % (Auto) 1.5 Baso % (Auto) 0.6 Lymph # (Auto) 1.1 L Whitley # (Auto) 0.2 Eos # (Auto) 0.1 Baso # (Auto) 0.0 Abs Immat Gran (auto) 0.02 Absolute Neuts (auto) 3.9 Absolute Nucleated RBC 0.000 Nucleated RBC % (auto) 0.0 Smear Path Review O2 Saturation ABG pH at Pt Temp ABG pCO2 at Pt Temp ABG pO2 at Pt Temp ABG HCO3 ABG Base Excess (Actual) VBG pH 7.41 VBG pCO2 57 VBG pO2 138 VBG HCO3 37 H VBG O2 Saturation 100.0 VBG Base Excess 10.9 Anion Gap 13 Estim Creat Clear Calc 81.7 Estimated GFR > 60 POC Glucose 135 H Random Glucose 112 Calcium 9.0 Phosphorus 3.4 Magnesium 1.8 Albumin 3.0 L 03/17/23 03/17/23 07:14 11:06 MCV MCH MCHC RDW Plt Count MPV Immature Gran % (Auto) Neut % (Auto) Lymph % (Auto) Whitley % (Auto) Eos % (Auto) Baso % (Auto) Lymph # (Auto) Whitley # (Auto) Eos # (Auto) Baso # (Auto) Abs Immat Gran (auto) Absolute Neuts (auto) Absolute Nucleated RBC Nucleated RBC % (auto) Smear Path Review O2 Saturation ABG pH at Pt Temp ABG pCO2 at Pt Temp ABG pO2 at Pt Temp ABG HCO3 ABG Base Excess (Actual) VBG pH VBG pCO2 VBG pO2 VBG HCO3 VBG O2 Saturation VBG Base Excess Anion Gap Estim Creat Clear Calc Estimated GFR POC Glucose 118 H 155 H Random Glucose Calcium Phosphorus Magnesium Albumin Microbiology Microbiology Results: Microbiology 03/15/23 10:04 Blood Culture - Preliminary Blood - Venous No growth after 48 hours. 03/15/23 09:58 Blood Culture - Preliminary Blood - Venous No growth after 48 hours. Assessment and Plan (1) Acute metabolic encephalopathy: Status: Acute (2) Alcohol abuse: Status: Acute (3) COPD exacerbation: Status: Acute (4) Acute respiratory failure with hypoxia and hypercapnia: Status: Acute Plan 57-year-old lady with underlying COPD on 2 L, moderate aortic stenosis, diastolic heart failure, hypertension, polysubstance abuse now on methadone, alcohol abuse, diabetes mellitus, anxiety admitted on 03/15/2023 with dyspnea and chest discomfort. Acute hypoxic\hypercapnic respiratory failure 2/2 COPD & CHF exacerbation Seems improving Lasix IV , Diamox Duonebs wean O2 down as tolerated To do overnight sleep study to eval for ASHA Alcohol abuse and withdrawal Phenobarb protocol DMII Lantus, SSI diabetic diet Hx drug abuse Methadone DVT PPx Heparin Needs overnight hospital stay for treatment of above pending clinical improvement Quality Stroke Does the patient have a stroke diagnosis?: No VTE Prior VTE?: No VTE Risk Level:: Medical - moderate - high VTE Device Contraindication: Treatment Not Indicated VTE Drug Contraindication: N/A - Med Ordered
[2023-03-17 16:13] LABS: Glucose, Whole Blood 139 mg/dL (60-115)
[2023-03-17] MEDS: Ondansetron ODT 4 MG TAB.RAPDIS TRANSLINGU (19:40)
[2023-03-17] MEDS: QUEtiapine Fumarate 25 MG TABLET 12.5 MG PO (19:41)
[2023-03-17 20:06] LABS: Glucose, Whole Blood 159 mg/dL (60-115)
[2023-03-17] MEDS: Prazosin HCL 1 MG CAPSULE 3 MG PO (20:36)
[2023-03-17] MEDS: Mirtazapine 30 MG TABLET PO (20:37)
[2023-03-18] VITALS (9 sets, daily range): BP systolic 114–146; BP diastolic 55–64; PULSE 86–102; RESP 16–20; TEMP 36.2–36.5; O2SAT 90–97; BMI 40.3
[2023-03-18] MEDS: Albuterol/Iprat 2.5/0.5MG 3 ML AMPUL.NEB INHALE ×3 (05:37→16:18)
[2023-03-18 05:47] LABS: Hematocrit 35.3 % (37.0-47.0); Hemoglobin 10.1 g/dl (12.0-16.0); Mean Corpuscular HGB Conc 28.6 g/dl (31.0-35.0); Mean Corpuscular Volume 111.7 fL (80.0-98.0); Mean Platelet Volume 10.4 fL (9.4-12.3); Platelet Count 193 X10*3/uL (160-400); Red Blood Count 3.16 X10*6/uL (4.20-5.50); Red Cell Distribution Width 19.2 % (11.0-16.0); White Blood Count 4.5 X10*3/uL (4.8-10.8)
[2023-03-18 06:01] LABS: Anion Gap 12 (12-20); Blood Urea Nitrogen 14 mg/dL (9-16); Calcium 8.8 mg/dL (8.4-10.2); Carbon Dioxide 34 mmol/L (22-29); Chloride 99 mmol/L (96-108); Estimated Glomerular Filt Rate 60; Glucose Random 132 mg/dL (60-115); Potassium 3.5 mmol/L (3.3-5.1); Sodium 141 mmol/L (135-145)
[2023-03-18] MEDS: Heparin Sodium,Porcine 5,000 UNIT/ML VIAL 5000 UNIT SUBCUT ×2 (06:34→08:38)
[2023-03-18] MEDS: Omeprazole 40 MG CAPSULE.DR PO (06:35)
[2023-03-18 07:57] LABS: Glucose, Whole Blood 152 mg/dL (60-115)
[2023-03-18] MEDS: Aspirin Enteric Coated 81 MG TABLET.DR PO (08:24)
[2023-03-18] MEDS: Nicotine 7 MG PATCH.TD24 TRANSDERMA (08:24)
[2023-03-18] MEDS: PHENobarbitaL 15 MG TABLET PO (08:24)
[2023-03-18] MEDS: Thiamine HCL 100 MG TABLET PO (08:24)
[2023-03-18] MEDS: Sucralfate 1 GM TABLET PO ×2 (08:24→12:36)
[2023-03-18] MEDS: Docusate Sodium 100 MG CAPSULE PO (08:24)
[2023-03-18] MEDS: Gabapentin 300 MG CAPSULE PO ×2 (08:25→14:00)
[2023-03-18] MEDS: acetaZOLAMIDE sodium 500 MG VIAL IVPUSH (08:25)
[2023-03-18] MEDS: methADONE HCl 20 MG/2 ML ORAL.CONC 140 MG PO (08:25)
[2023-03-18] MEDS: Folic Acid 1 MG TABLET PO (08:25)
[2023-03-18] MEDS: Insulin Lispro 100 UNIT/ML 3 ML VIAL SUBCUT (08:25)
[2023-03-18] MEDS: Insulin Glargine,Hum.rec.anlog 100 UNIT/ML 10 ML VIAL 30 UNIT SUBCUT (08:25)
[2023-03-18] MEDS: metFORMIN HCl 500 MG TABLET PO (08:25)
[2023-03-18] MEDS: lisinopriL 5 MG TABLET PO (08:25)
[2023-03-18] MEDS: Furosemide 40 MG/4 ML VIAL IVPUSH (08:25)
--- NOTE | 2023-03-18 09:09 | MHC.CM.PN ---
Per MD, Patient will be medically cleared for dc to home today, with services. [facility] referral [facility] to [facility], who has been notified of today's dc. 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
[2023-03-18] MEDS: ondansetron HCL 4 MG/2 ML VIAL IVPUSH (09:50)
--- NOTE | 2023-03-18 10:44 | PM.PNCARD ---
Subjective Subjective Date of Service: 03/18/23 Interval history: Seen examined at bedside. She is saying she is feeling better. Still volume overloaded. Physical Exam Vital Signs: Last Vital Signs Temp 97.7 F 03/18/23 08:00 Pulse 91 03/18/23 09:31 Resp 16 03/18/23 08:00 BP 146/64 H 03/18/23 09:31 Pulse Ox 97 03/18/23 09:31 O2 Del Method Nasal Cannula 03/18/23 08:00 O2 Flow Rate 2 03/18/23 08:00 FiO2 35 03/18/23 04:00 Oxygen Flow Rate 2 03/15/23 09:08 BMI result Body Mass Index 40.3 GENERAL APPEARANCE: in no acute distress, awake. NECK: no carotid bruit, + jugular venous distention. SKIN: no suspicious lesions, warm and dry. HEART: no murmurs, regular rate and rhythm. LUNGS: clear to auscultation bilaterally. ABDOMEN: soft, nontender. EXTREMITIES: + edema. PERIPHERAL PULSES: equal. NEUROLOGIC: No gross deficits, AAO X 3 Objective Labs and Meds 03/18/23 05:28 03/18/23 05:28 Lab results: Laboratory Results - last 24 hr 03/17/23 03/17/23 03/17/23 11:06 15:58 20:03 WBC RBC Hgb Hct MCV MCH MCHC RDW Plt Count MPV Absolute Nucleated RBC Nucleated RBC % (auto) Sodium Potassium Chloride Carbon Dioxide Anion Gap BUN Creatinine Estim Creat Clear Calc Estimated GFR POC Glucose 155 H 139 H 159 H Random Glucose Calcium 03/18/23 03/18/23 05:28 07:36 WBC 4.5 L RBC 3.16 L Hgb 10.1 L Hct 35.3 L MCV 111.7 H MCH 32.0 MCHC 28.6 L RDW 19.2 H Plt Count 193 MPV 10.4 Absolute Nucleated RBC 0.000 Nucleated RBC % (auto) 0.0 Sodium 141 Potassium 3.5 Chloride 99 Carbon Dioxide 34 H Anion Gap 12 BUN 14 Creatinine 0.96 Estim Creat Clear Calc 66.0 Estimated GFR 60 POC Glucose 152 H Random Glucose 132 H Calcium 8.8 Progress Note: A&P Assessment and plan (1) Acute exacerbation of congestive heart failure: Status: Acute Plan [age] year female with diastolic heart failure. Still volume overloaded. Increasing Lasix to 40 mg IV b.i.d.. Stop the acetazolamide. Follow along with you. Please add spironolactone 25 mg daily. Time Spent With Patient Time: Total time managing care of this patient today ____ minutes. Progress Note: Quality Stroke Does the patient have a stroke diagnosis?: No Procedures Date of Service Date of Service: 03/18/23
--- NOTE | 2023-03-18 11:38 | PC.NURSE ---
Addendum entered by Shiv Leonard RN 03/18/23 16:39: POC returned to [facility]. Pt stated it is ok to give daughter information. daughter was updated. pt to be d/c'ed today. last dose letter completed and handed to pt. iv and tele removed Original Note: POC critically low around noon. informed. Pt awake, asymptomatic, snacks being given and POC to be recheched
[2023-03-18 12:06] LABS: Glucose, Whole Blood 48 mg/dL (60-115)
[2023-03-18 12:08] LABS: Glucose, Whole Blood 58 mg/dL (60-115)
--- NOTE | 2023-03-18 12:23 | P.PNIM_ITS ---
Subjective Subjective Date of Service: 03/18/23 Interval History: Seen and evaluated Feels better overall Still on O2 supplement 3-4 L Hypoglycemic events this morning No fever or chills Review of Systems Review of Systems: Yes all other systems are reviewed and are negative Physical Exam 2 Vital Signs: Vital Signs: Last Vital Signs Temp 97.7 F 03/18/23 12:00 Pulse 102 H 03/18/23 12:00 Resp 18 03/18/23 12:00 BP 127/60 03/18/23 12:00 Pulse Ox 91 L 03/18/23 12:00 O2 Del Method Nasal Cannula 03/18/23 12:00 O2 Flow Rate 3 03/18/23 12:00 FiO2 35 03/18/23 04:00 Oxygen Flow Rate 2 03/15/23 09:08 BMI result Body Mass Index 40.3 Const: Other: Constitutional : Awake, interactive, not in distress Neck : Normal inspection, Supple Cardiovascular : RRR, no JVP, +1 lower extremity edema Respiratory : decreased bilateral air entry, no crackles, expiratory wheezes Gastrointestinal: soft, lax, Normal bowel sounds, Non tender Skin : Warm, Dry Neurological : Alert & oriented x3, No focal deficit Objective Data Active Medications Albuterol/Ipratropium (Albuterol/Iprat 2.5/0.5mg 3 Ml Ampul.Neb) 3 ml INHALE RQ6H WHILE AWAKE [facility] Last Admin: 03/18/23 07:37 Dose: 3 ml Documented By: AUGUSTINA Aspirin (Aspirin Enteric Coated 81 Mg Tablet.) 81 mg PO DAILY [facility] Last Admin: 03/18/23 08:24 Dose: 81 mg Documented By: ANNETTE Docusate Sodium (Docusate Sodium 100 Mg Capsule) 100 mg PO BID [facility] Last Admin: 03/18/23 08:24 Dose: 100 mg Documented By: ANNETTE Folic Acid (Folic Acid 1 Mg Tablet) 1 mg PO DAILY [facility] Last Admin: 03/18/23 08:25 Dose: 1 mg Documented By: ANNETTE Furosemide (Furosemide 40 Mg/4 Ml Vial) 40 mg IVPUSH BID@0900,1800 [facility]; Protocol Gabapentin (Gabapentin 300 Mg Capsule) 300 mg PO TID [facility] Last Admin: 03/18/23 08:25 Dose: 300 mg Documented By: ANNETTE Heparin Sodium (Porcine) (Heparin Sodium,Porcine 5,000 Unit/Ml Vial) 5,000 unit SUBCUT Q8H [facility] Last Admin: 03/18/23 08:38 Dose: 5,000 unit Documented By: ANNETTE Insulin Glargine (Insulin Glargine,Hum.Rec.Anlog 100 Unit/Ml 10 Ml Vial) 30 unit SUBCUT DAILY [facility] Last Admin: 03/18/23 08:25 Dose: 30 unit Documented By: ANNETTE Insulin Human Lispro (Insulin Lispro 100 Unit/Ml 3 Ml Vial) 0 unit SUBCUT QIDACHS [facility]; Protocol Last Admin: 03/18/23 12:10 Dose: Not Given Documented By: ANNETTE Non-Admin Reason: See Note Lisinopril (Lisinopril 5 Mg Tablet) 5 mg PO DAILY [facility]; Protocol Last Admin: 03/18/23 08:25 Dose: 5 mg Documented By: ANNETTE Metformin HCl (Metformin Hcl 500 Mg Tablet) 500 mg PO BID [facility] Last Admin: 03/18/23 08:25 Dose: 500 mg Documented By: ANNETTE Methadone HCl (Methadone Hcl 20 Mg/2 Ml Oral.Conc) 140 mg PO DAILY [facility] Last Admin: 03/18/23 08:25 Dose: 140 mg Documented By: ANNETTE Mirtazapine (Mirtazapine 30 Mg Tablet) 30 mg PO BEDTIME [facility] Last Admin: 03/17/23 20:37 Dose: 30 mg Documented By: MICHELINE Nicotine (Nicotine 7 Mg Patch.Td24) 7 mg TRANSDERMA DAILY [facility] Last Admin: 03/18/23 08:24 Dose: 7 mg Documented By: ANNETTE Omeprazole (Omeprazole 40 Mg Capsule.Dr) 40 mg PO DAILY@0630 [facility] Last Admin: 03/18/23 06:35 Dose: 40 mg Documented By: CASSI Pharmacy Consult (Consult Rx Etoh Phenob Im/Po) 1 each MISCELLANE ONCE PRN; Protocol PRN Reason: Consult order Phenobarbital (Phenobarbital 15 Mg Tablet) 15 mg PO BID [facility] Stop: 03/19/23 21:01 Last Admin: 03/18/23 08:24 Dose: 15 mg Documented By: ANNETTE Phenobarbital (Phenobarbital 15 Mg Tablet) 15 mg PO DAILY [facility] Stop: 03/21/23 09:01 Polyethylene Glycol (Polyethylene Glycol 3350 17 Gm Powd.Pack) 17 gm PO DAILY [facility] Last Admin: 03/18/23 08:24 Dose: Not Given Documented By: ANNETTE Non-Admin Reason: Patient Refused Prazosin HCl (Prazosin Hcl 1 Mg Capsule) 3 mg PO BEDTIME [facility]; Protocol Last Admin: 03/17/23 20:36 Dose: 3 mg Documented By: MICHELINE Quetiapine Fumarate (Quetiapine Fumarate 25 Mg Tablet) 12.5 mg PO Q4H PRN PRN Reason: anxiety Last Admin: 03/17/23 19:41 Dose: 12.5 mg Documented By: CASSI Sucralfate (Sucralfate 1 Gm Tablet) 1 gm PO QIDACHS [facility] Last Admin: 03/18/23 08:24 Dose: 1 gm Documented By: ANNETTE Thiamine HCl (Thiamine Hcl 100 Mg Tablet) 100 mg PO DAILY [facility] Last Admin: 03/18/23 08:24 Dose: 100 mg Documented By: ANNETTE Labs 03/18/23 05:28 03/18/23 05:28 Labs: Laboratory Results - last 24 hr 03/17/23 03/17/23 03/18/23 15:58 20:03 05:28 MCV 111.7 H MCH 32.0 MCHC 28.6 L RDW 19.2 H Plt Count 193 MPV 10.4 Absolute Nucleated RBC 0.000 Nucleated RBC % (auto) 0.0 Anion Gap 12 Estim Creat Clear Calc 66.0 Estimated GFR 60 POC Glucose 139 H 159 H Random Glucose 132 H Calcium 8.8 03/18/23 03/18/23 03/18/23 07:36 11:35 12:05 MCV MCH MCHC RDW Plt Count MPV Absolute Nucleated RBC Nucleated RBC % (auto) Anion Gap Estim Creat Clear Calc Estimated GFR POC Glucose 152 H 48 L* 58 L* Random Glucose Calcium Microbiology Microbiology Results: Microbiology 03/15/23 10:04 Blood Culture - Preliminary Blood - Venous No growth after 48 hours. 03/15/23 09:58 Blood Culture - Preliminary Blood - Venous No growth after 48 hours. Assessment and Plan (1) Acute metabolic encephalopathy: Status: Acute (2) Alcohol abuse: Status: Acute (3) COPD exacerbation: Status: Acute (4) Acute respiratory failure with hypoxia and hypercapnia: Status: Acute (5) Acute exacerbation of congestive heart failure: Status: Acute Plan 57-year-old lady with underlying COPD on 2 L, moderate aortic stenosis, diastolic heart failure, hypertension, polysubstance abuse now on methadone, alcohol abuse, diabetes mellitus, anxiety admitted on 03/15/2023 with dyspnea and chest discomfort. Acute hypoxic\hypercapnic respiratory failure 2/2 COPD & CHF exacerbation Seems improving continue Lasix IV , Diamox Duonebs , prednisone wean O2 down as tolerated overnight sleep study done, read on Tuesday, to follow with Pulm as outpatient. Alcohol abuse and withdrawal Phenobarb protocol DMII with hypoglycemia 2 episodes of BS in 50s 'decrease Lantus SSI diabetic diet Hx drug abuse Methadone DVT PPx Heparin Needs overnight hospital stay for treatment of above pending clinical improvement Quality Stroke Does the patient have a stroke diagnosis?: No VTE Prior VTE?: No VTE Risk Level:: Medical - moderate - high VTE Device Contraindication: Treatment Not Indicated VTE Drug Contraindication: N/A - Med Ordered
[2023-03-18] MEDS: predniSONE 20 MG TABLET 40 MG PO (12:36)
[2023-03-18 12:39] LABS: Glucose, Whole Blood 73 mg/dL (60-115)
--- NOTE | 2023-03-18 14:27 | W.MHC.F2F ---
Service Date Service Date: 03/18/23 Encounter Date of encounter: 03/18/23 Reasons for Services Signs and symptoms assessed: CHF exacerbation physical deconditioning Reason for intermediate: medication management and teach disease management Reason for physical therapy: home safety and mobility and therapeutic exercises Homebound: Leaving the home is medically contraindicated at this time without the asist of a device and/or another person due th the listed conditions above and below. Reason homebound: unable to drive Certification: Based on the above findings, I certify that this patient is confined to the home and needs intermittent intermediate care, physical therapy and/or speech therapy, or continues to need occupational therapy. The patient is under my care, and I have initiated the establishment of the plan of care. The patient will be followed by a physician who will periodically review the plan of care. Time Spent With Patient Time: Total time managing care of this patient today ____ minutes.
--- NOTE | 2023-03-18 14:28 | P.DS_ITS ---
DS: Providers Provider Date of Service: 03/18/23 Date of admission: 03/15/23 16:39 Primary care physician: Amaya Martinez MD Consults: 03/15/23 12:53 Consult to Cardiology [place]ine [place] [facility] [place] [facility] Reason for consultation: CHF Has provider been notified: Yes DS: Diagnosis Discharge Diagnosis (1) Acute metabolic encephalopathy: Status: Acute (2) Alcohol abuse: Status: Acute (3) COPD exacerbation: Status: Acute (4) Acute respiratory failure with hypoxia and hypercapnia: Status: Acute (5) Acute exacerbation of congestive heart failure: Status: Acute (6) Elevated lactic acid level: Status: Acute DS: Summary Hospital Course Hospital Course: Admission note HPI The patient is a 57-year-old female with a past medical history of COPD ( 2 L O2 as needed at home),? aortic stenosis, congestive heart failure,? hypertension, polysubstance abuse (? on methadone), ? alcohol abuse, diabetes mellitus type 2, and anxiety? who presents to the emergency room with chest pain.? Patient reports x 3 days of worsening shortness of breath and last night she began having 10/10 chest pain. Patient reports that she drinks 3-4 nips per day of alcohol. Patient states that she has not used cocaine in over 2 months. On arrival in the emergency room tachycardic 110s,? tachypneic,? normotensive,? requiring 2 L via nasal cannula initially.? Patient? initially was hypoxic requiring? OxyMask but later required BiPAP support.? Received 40 of Lasix, Mag 2 g, Ativan 2 mg.? Hospital course # Acute hypoxic\hypercapnic respiratory failure 2/2 COPD & CHF exacerbation treated in ICU with BiPAP and improved significantly. Started on Lasix IV , Diamox, Duonebs , prednisone. O2 weaned down as tolerated to 3L. cultures remained negative. overnight sleep study done, read on Tuesday, to follow with Pulm\PCP as outpatient. # Alcohol abuse and withdrawal controlled with Phenobarb protocol and advised to quit drinking. # DMII with hypoglycemia. asymptomatic. Lantus dose decreased. To continue Metformin. Start with 30 units of Lantus at home tomorrow and increase back to 40 after Continue Prednisone Continue Lasix daily Folic acid and Thiamine Avoid smoking and allergens Monitor weight at home Follow up with PCP next week for the result of sleep study and the need of non- invasive ventilator (CPAP\BiPAP) Time Attestation Discharge coordination time: Greater than 30 minutes Quality: Safe Use of Opioids Does Pt have an Active Cancer Diagnosis on the Problem List?: No Quality: Stroke Does the patient have a stroke diagnosis?: No Physical Exam Vital Signs: Vital Signs: Last Vital Signs Temp 97.7 F 03/18/23 12:00 Pulse 102 H 03/18/23 12:00 Resp 18 03/18/23 12:00 BP 127/60 03/18/23 12:00 Pulse Ox 91 L 03/18/23 12:00 O2 Del Method Nasal Cannula 03/18/23 12:00 O2 Flow Rate 3 03/18/23 12:00 FiO2 35 03/18/23 04:00 Oxygen Flow Rate 2 03/15/23 09:08 BMI result Body Mass Index 40.3 Const: Other: Constitutional : Awake, interactive, not in distress Neck : Normal inspection, Supple Cardiovascular : RRR, no JVP, +1 lower extremity edema Respiratory : decreased bilateral air entry, no crackles, no wheezes Gastrointestinal: soft, lax, Normal bowel sounds, Non tender Skin : Warm, Dry Neurological : Alert & oriented x3, No focal deficit DS: Data Data Completed and Pending Completed studies during hospitalization [Text1]: Procedures Detoxification Services for Substance Abuse Treatment (12/29/22) Labs on day of discharge: Laboratory Results - last 24 hr 03/17/23 03/17/23 03/18/23 15:58 20:03 05:28 WBC 4.5 L RBC 3.16 L Hgb 10.1 L Hct 35.3 L MCV 111.7 H MCH 32.0 MCHC 28.6 L RDW 19.2 H Plt Count 193 MPV 10.4 Absolute Nucleated RBC 0.000 Nucleated RBC % (auto) 0.0 Sodium 141 Potassium 3.5 Chloride 99 Carbon Dioxide 34 H Anion Gap 12 BUN 14 Creatinine 0.96 Estim Creat Clear Calc 66.0 Estimated GFR 60 POC Glucose 139 H 159 H Random Glucose 132 H Calcium 8.8 03/18/23 03/18/23 03/18/23 07:36 11:35 12:05 WBC RBC Hgb Hct MCV MCH MCHC RDW Plt Count MPV Absolute Nucleated RBC Nucleated RBC % (auto) Sodium Potassium Chloride Carbon Dioxide Anion Gap BUN Creatinine Estim Creat Clear Calc Estimated GFR POC Glucose 152 H 48 L* 58 L* Random Glucose Calcium 03/18/23 12:36 WBC RBC Hgb Hct MCV MCH MCHC RDW Plt Count MPV Absolute Nucleated RBC Nucleated RBC % (auto) Sodium Potassium Chloride Carbon Dioxide Anion Gap BUN Creatinine Estim Creat Clear Calc Estimated GFR POC Glucose 73 Random Glucose Calcium Preliminary micro results at discharge 03/15/23 10:04 Blood Culture - Preliminary Blood - Venous No growth after 48 hours. 03/15/23 09:58 Blood Culture - Preliminary Blood - Venous No growth after 48 hours. Imaging Chest x-ray: Radiologist's impression: ITS Impressions Venous Duplex 03/15/23 10:15 IMPRESSION: No DVT demonstrated in the right or left lower extremity. Chest X-Ray 03/15/23 10:35 IMPRESSION: 1. Bibasilar patchy opacities which may represent an combination of atelectasis, infiltrate, and/or effusion. 2. Small bilateral pleural effusions. Chest CTA 03/15/23 15:02 IMPRESSION: 1. No evidence of pulmonary embolism. 2. Right lower lobe consolidation with volume loss. 3. Trace dependent bilateral pleural effusions. 4. Cardiomegaly. 5. Hepatomegaly. Diffuse fatty change of liver. 6. Left adrenal adenoma. No further follow-up imaging recommended. VTE: negative. Discharge Plan Discharge Anticipated Discharge Date/Time: 03/18/23 11:59 Patient Disposition: Home Health Service Discharge Diagnosis: COPD exacerbation HEart failure Referrals: [facility] [Outside] - 1 Week Po,Amaya Fontaine MD [Primary Care Provider] - 1 Week Discharge Medications: New folic acid 1 mg Tablet 1 mg PO DAILY Qty: 30 0RF thiamine mononitrate (vit B1) 100 mg Tablet 100 mg PO DAILY Qty: 30 0RF furosemide 20 mg tablet 20 mg PO QAM Qty: 90 0RF prednisone 20 mg tablet 40 mg PO DAILY Qty: 10 0RF Continued (DME) cane Device See Rx Instructions .Route Qty: 1 0RF Rx Instructions: As directed gabapentin 300 mg capsule 900 mg PO TID 30 Days Qty: 270 7RF (DME) pen needle, diabetic [BD Ultra-Fine Micro Pen Needle] 32 gauge x 1/4 needle See Rx Instructions .Route Qty: 100 8RF Rx Instructions: test 4 times per day prazosin 1 mg capsule 3 mg PO BEDTIME 30 Days Qty: 90 4RF Protocol: Hold for SBP< HOLD for SBP < : 90 docusate sodium [Colace] 100 mg capsule 100 mg PO BID Qty: 60 4RF (DME) insulin syringe-needle U-100 [BD Insulin Syringe Ultra-Fine] 1 mL 31 gauge x 5/16 syringe See Rx Instructions .Route Qty: 100 2RF Rx Instructions: As directed 4 times per day mirtazapine 30 mg tablet 30 mg PO BEDTIME 30 Days Qty: 30 5RF insulin glargine [Lantus Solostar U-100 Insulin] 100 unit/mL (3 mL) insulin pen 40 unit SUBCUT DAILY Qty: 15 0RF insulin lispro [Humalog U-100 Insulin] 100 unit/mL solution 10 unit subcut TIDAC Qty: 10 0RF (DME) FreeStyle Lite Strips Strip Qty: 100 12RF Rx Instructions: Test four times a day or as directed. methadone [Methadone Intensol] 10 mg/mL Concentrate 140 mg PO DAILY (DME) pulse oximeter See Rx Instructions Rx Instructions: As directed nicotine 7 mg/24 hr Patch 24 Hour 7 mg transdermal DAILY Qty: 30 0RF (DME) blood-glucose meter [FreeStyle Lite Meter] Kit Qty: 1 0RF Rx Instructions: [place] [place] lancets [FreeStyle Lancets] 28 gauge misc Qty: 100 0RF Rx Instructions: Test four times a day or as directed. polyethylene glycol 3350 17 gram Powder In Packet 17 g PO DAILY Qty: 100 0RF sucralfate 1 gram Tablet 1 g PO QIDACHS Qty: 120 0RF omeprazole 40 mg capsule,delayed release(DR/EC) 40 mg PO DAILY@0630 [place] [place] Oxygen Home Use Kit See Rx Instructions .ROUTE .MEDSUPPLY Qty: 1 12RF Rx Instructions: 2L nasal cannula continuous ipratropium-albuterol 0.5 mg-3 mg(2.5 mg base)/3 mL solution for nebulization 3 ml inhalation Q4H PRN (Reason: shortness of breath or wheezing) (DME) [employer] Plus Adult Briefs Misc See Rx Instructions .Route Qty: 60 0RF Rx Instructions: As directed metformin 500 mg tablet 500 mg PO BID Qty: 180 8RF aspirin 81 mg tablet,delayed release (DR/EC) 81 mg PO DAILY Qty: 30 7RF quetiapine 25 mg tablet 12.5 mg PO Q4H PRN (Reason: anxiety) 30 Days Qty: 30 6RF lisinopril 5 mg tablet 5 mg PO DAILY Qty: 30 4RF fluticasone propion-salmeterol [Advair Diskus] 250-50 mcg/dose blister with device 1 inh inhalation BID Qty: 60 11RF albuterol sulfate [Ventolin HFA] 90 mcg/actuation HFA aerosol inhaler 2 puff inhalation Q6H PRN (Reason: for wheezing) Qty: 8.5 0RF Discharge Orders: Discharge Order (Routine); Ordered 03/18/23 Ordered By: Jessy Shaffer Diet: Advance to usual diet Activity on Discharge: As tolerated Stand Alone Forms: Patient Portal Discharge page, Substance Abuse Outpt Detox Activity Restrictions/Additional Instructions: [facility] A member of [employer] [address] [id number] [employer] The above patient last received ___140___mg Methadone on (Date)___03/18/23 at (Time)__08:25am___ RN Signature: Date: Please complete this last dose letter on the day of discharge. Secure it in an envelope and sign over the seal. The patient must provide this sealed document upon return to their Opiate Treatment Program Care Plan Goals: Read below Health Concerns: Read below Plan of Treatment: Read below Assessment: Start with 30 units of Lantus at home tomorrow and increase back to 40 after Continue Prednisone Continue Lasix daily Folic acid and Thiamine Avoid smoking and allergens Monitor weight at home Follow up with PCP next week for the result of sleep study and the need of non- invasive ventilator (CPAP\BiPAP) Discharge Date/Time: 03/18/23 17:57
--- NOTE | 2023-03-18 15:14 | MHC.CM.PN ---
[facility] is unable to do a SOC for tomorrow. [facility] can do a SOC tomorrow and has accepted Patient. aware.
[2023-03-18 16:00] LABS: Glucose, Whole Blood 126 mg/dL (60-115)
== END 2023-03-18 17:57 | disposition home health service (06) | DRG 194 ==
LOC: HO.ED 16:03 → HO.EDOVER 16:56 → HO.ICU 16:57 → HO.IMC 03-16 12:48
PROVIDERS: Physician Assistant Medical; Registered Nurse Community Health; Admitting Provider Internal Medicine Pulmonary Disease; Emergency Provider Emergency Medicine; PCP Internal Medicine; Visit Provider Student in an Organized Health Care Education/Training Program
DX: I11.0 Hypertensive heart disease with heart failure (principal); J96.01 Acute respiratory failure with hypoxia; J96.02 Acute respiratory failure with hypercapnia; J44.1 Chronic obstructive pulmonary disease with (acute) exacerbation; F17.210 Nicotine dependence, cigarettes, uncomplicated; Z99.81 Dependence on supplemental oxygen; F11.20 Opioid dependence, uncomplicated; E11.649 Type 2 diabetes mellitus with hypoglycemia without coma; F10.139 Alcohol abuse with withdrawal, unspecified; I35.0 Nonrheumatic aortic (valve) stenosis; F19.10 Other psychoactive substance abuse, uncomplicated; E11.65 Type 2 diabetes mellitus with hyperglycemia; Z20.822 Contact with and (suspected) exposure to COVID-19; Z71.6 Tobacco abuse counseling; Z79.4 Long term (current) use of insulin; Z79.51 Long term (current) use of inhaled steroids; Z79.84 Long term (current) use of oral hypoglycemic drugs; Z79.899 Other long term (current) drug therapy
CPT/HCPCS: 0241U; 36415; 36600; 71046; 71275; 80048; 80053; 80307; 81003; 82040; 82140; 82803; 82947; 83605; 83735; 83880; 84100; 84484; 85025; 85027; 85610; 85730; 87040; 93005; 93306; 93970; 94640; 94660; 97110; 97116; 97162; 99285; J1643; J1940; J2060; J2405; J2560; J2920; J3475; P9047; Q9957; Q9967

== ENCOUNTER → 2023-03-15 10:22 | Outpatient (BNV) | payer OTHER, SELFPAY | PROVIDERS: Emergency Provider Emergency Medicine; PCP Internal Medicine; Visit Provider Internal Medicine Cardiovascular Disease | DX: R79.89 Other specified abnormal findings of blood chemistry (principal); R06.02 Shortness of breath; I35.0 Nonrheumatic aortic (valve) stenosis | CPT/HCPCS: 93306; 99223; 99232 ==

== ENCOUNTER → 2023-03-15 16:39 | Outpatient (BNV) | payer OTHER, SELFPAY | PROVIDERS: Admitting Provider Internal Medicine Pulmonary Disease; Emergency Provider Emergency Medicine; PCP Internal Medicine; Visit Provider Student in an Organized Health Care Education/Training Program | DX: J44.1 Chronic obstructive pulmonary disease with (acute) exacerbation (principal); J96.01 Acute respiratory failure with hypoxia; J96.02 Acute respiratory failure with hypercapnia; I50.9 Heart failure, unspecified; G93.41 Metabolic encephalopathy; F10.10 Alcohol abuse, uncomplicated | CPT/HCPCS: 99232; 99239; G0180 ==

== ENCOUNTER → 2023-03-15 16:39 | Outpatient (BNV) | payer OTHER, SELFPAY | PROVIDERS: Admitting Provider Internal Medicine Pulmonary Disease; Emergency Provider Emergency Medicine; PCP Internal Medicine; Visit Provider Registered Nurse Community Health | DX: J96.01 Acute respiratory failure with hypoxia (principal); J96.02 Acute respiratory failure with hypercapnia; I50.9 Heart failure, unspecified; J44.1 Chronic obstructive pulmonary disease with (acute) exacerbation; R79.89 Other specified abnormal findings of blood chemistry; F10.10 Alcohol abuse, uncomplicated; F19.10 Other psychoactive substance abuse, uncomplicated | CPT/HCPCS: 99291 ==

== ENCOUNTER → 2023-03-15 16:39 | Outpatient (BNV) | payer OTHER, SELFPAY | PROVIDERS: Admitting Provider Internal Medicine Pulmonary Disease; Emergency Provider Emergency Medicine; PCP Internal Medicine; Visit Provider Internal Medicine Pulmonary Disease | DX: J96.01 Acute respiratory failure with hypoxia (principal); J96.02 Acute respiratory failure with hypercapnia; F10.10 Alcohol abuse, uncomplicated; I50.9 Heart failure, unspecified; F19.10 Other psychoactive substance abuse, uncomplicated; E11.65 Type 2 diabetes mellitus with hyperglycemia; G93.41 Metabolic encephalopathy; E66.9 Obesity, unspecified; Z91.89 Other specified personal risk factors, not elsewhere classified | CPT/HCPCS: 99291 ==

== ENCOUNTER 2023-05-11 09:13 | Inpatient (IN) | payer OTHER, SELFPAY ==
[2023-05-11] VITALS (13 sets, daily range): BP systolic 108–152; BP diastolic 71–108; PULSE 98–123; RESP 13–20; TEMP 36.5–36.9; O2SAT 90–97; BMI 38.6
--- NOTE | 2023-05-11 | ECG_ITS ---
Test Reason : CHEST PAIN Blood Pressure : / mmHG Vent. Rate : 111 BPM Atrial Rate : 111 BPM P-R Int : 208 ms QRS Dur : 084 ms QT Int : 328 ms P-R-T Axes : 066 102 112 degrees QTc Int : 446 ms Artifact in tracing Sinus tachycardia Possible Left atrial enlargement Rightward axis Septal infarct (cited on or before 11-MAY-2023) ST & T wave abnormality, consider anterolateral ischemia Abnormal ECG When compared with ECG of 15-MAR-2023 09:06, Serial changes of evolving Septal infarct Present Referred By: Generic ED Physician Electronically Signed By:CAREY MCCLURE
--- NOTE | ~2023-05-11 | XR_ITS ---
EXAMINATION: XR CHEST CLINICAL INFORMATION: Chest pain. COMPARISON: CT angiogram of 03/15/2023, chest radiograph 03/15/2023 TECHNIQUE: Frontal view of the chest was obtained. FINDINGS: Lung volumes are low. Stable cardiomediastinal silhouette. Mild residual bibasilar opacities have substantially improved since exam of 03/15/2023. Possible trace left pleural effusion. The chin obscures the lung apices. If there is concern for pneumothorax or other apical pathology, then repeat view for better visualization of the apices is recommended. XR/XR chest 1V IMPRESSION: 1. Mild residual bibasilar opacities have substantially improved since exam of 03/15/2023. Possible trace left pleural effusion. 2. The chin obscures the lung apices. If there is concern for pneumothorax or other apical pathology, then repeat view for better visualization of the apices is recommended.
--- NOTE | ~2023-05-11 | US_ITS ---
EXAMINATION: US ABDOMEN LIMITED CLINICAL INFORMATION: Right upper quadrant abdominal pain and tenderness.. COMPARISON: Selected images of the abdomen and pelvic CT scan of 12/28/2022. Abdominal ultrasound limited of 06/29/2022 TECHNIQUE: Real-time imaging of the right upper quadrant abdominal viscera. FINDINGS: PANCREAS: Largely obscured from visualization and could not be evaluated. LIVER: Limited evaluation. There is diffusely increased liver parenchymal echogenicity with somewhat heterogeneous echotexture. The findings are consistent with hepatic steatosis. Evaluation for focal hepatic lesion in the setting of underlying steatosis is limited. No focal lesion is noted in the visualized liver parenchyma. No intrahepatic biliary ductal dilatation. Contour of the visualized liver is normal. GALLBLADDER: Somewhat limited evaluation. The gallbladder is mildly distended. No definite gallstones are noted. No evidence of gallbladder wall thickening or pericholecystic fluid. No evidence of sludge or polyps in the gallbladder. As per technologist's notes, the patient was tender while scanning over the region of the gallbladder. COMMON BILE DUCT: The visualized proximal common bile duct is normal in caliber measuring 0.4 cm in diameter. RIGHT KIDNEY: Limited evaluation. The kidney is normal in size and echogenicity. Normal cortical thickness.. No hydronephrosis. No renal calculi or focal parenchymal lesions. The kidney measures 5.7 cm in maximum dimension. FREE FLUID: None. US/US abdomen limited IMPRESSION: Technically limited evaluation. Hepatic steatosis with mildly heterogeneous hepatic parenchymal echotexture. No evidence of cholelithiasis. No sonographic evidence of acute cholecystitis. However reportedly the patient was tender while scanning over the gallbladder. Recommend clinical correlation and clinical follow-up as appropriate. No biliary ductal dilatation.
[2023-05-11 09:50] LABS: Glucose, Whole Blood > 600 mg/dL (60-115)
[2023-05-11 09:50] LABS: Glucose, Whole Blood 599 mg/dL (60-115)
--- NOTE | 2023-05-11 09:56 | ED.CHESTPAIN ---
HPI - Chest Pain General Chief Complaint: Chest Pain Stated Complaint: CP X3 DAYS, HIGH BS PER EMS Time Seen by Provider: 05/11/23 09:23 Source: patient Mode of arrival: EMS Limitations: no limitations History of Present Illness HPI narrative: 57-year-old female with history of hypertension, hyperlipidemia, COPD, depression, PTSD, opiate use disorder, cocaine use disorder, alcohol use disorder who presents emergency department for evaluation of vomiting x3 days. She states she has been feeling dizzy and lightheaded. She is also complaining of right-sided chest pain which she describes as sharp pain which is constant and worse with coughing and moving. She states she has had a cough which is productive of thick yellow sputum. She states that her glucose is been high at home running between 240-350. She denied fever but did have chills. She had nausea with vomiting. She denied diarrhea. She has complaints of frequency and dysuria. She states she has been compliant with her insulin. She states she does drinks Fireball whiskey, 5 shots per day. She states that when she stops drinking she does get hallucinations, tremors and withdrawal seizures Related Data Home Medications Medication Instructions Recorded Confirmed methadone 10 mg/mL oral 140 mg PO DAILY 02/02/22 05/11/23 concentrate (Methadone Intensol) pulse oximeter 02/03/22 01/07/23 ipratropium 0.5 mg-albuterol 3 mg 3 ml inhalation Q4H PRN shortness 09/29/22 03/15/23 (2.5 mg base)/3 mL nebulization of breath or wheezing soln omeprazole 40 mg capsule,delayed 40 mg PO DAILY@0630 03/15/23 03/15/23 release Previous Rx's Medication Instructions Recorded Oxygen Home Use #1 ea 11/26/20 cane #1 ea 10/16/21 metformin 500 mg tablet 500 mg PO BID #180 tabs 10/08/22 diaper,brief,adult,disposable #60 ea 11/26/22 (Wings Choice Plus Adult Briefs) blood-glucose meter (FreeStyle #1 ea 01/02/23 Lite Meter kit) lancets 28 gauge (FreeStyle #100 ea 01/02/23 Lancets) nicotine 7 mg/24 hr daily 7 mg transdermal DAILY #30 ea 01/02/23 transdermal patch polyethylene glycol 3350 17 gram 17 g PO DAILY #100 ea 01/02/23 oral powder packet sucralfate 1 gram tablet 1 g PO QIDACHS #120 tabs 01/02/23 pen needle, diabetic 32 gauge x #100 ea 01/06/23 1/4 (BD Ultra-Fine Micro Pen Needle) docusate sodium 100 mg capsule 100 mg PO BID #60 caps 01/07/23 (Colace) insulin syringe-needle U-100 1 mL #100 ea 01/14/23 31 gauge x 5/16 (BD Insulin Syringe Ultra-Fine) mirtazapine 30 mg tablet 30 mg PO BEDTIME 30 days #30 tabs 01/18/23 blood sugar diagnostic (FreeStyle #100 ea 02/15/23 Lite Strips) insulin glargine 100 unit/mL (3 40 unit (0.4 mL) subcut DAILY #15 02/15/23 mL) subcutaneous pen (Lantus mL Solostar U-100 Insulin) fluticasone 250 mcg-salmeterol 50 1 inh inhalation BID #60 ea 03/03/23 mcg/dose blistr powdr for inhalation (Advair Diskus) lisinopril 5 mg tablet 5 mg PO DAILY #30 tabs 03/03/23 quetiapine 25 mg tablet 12.5 mg (1/2 x 25 mg) PO Q4H PRN 03/03/23 anxiety 30 days #30 tabs folic acid 1 mg tablet 1 mg PO DAILY #30 tabs 03/18/23 furosemide 20 mg tablet 20 mg PO QAM #90 tabs 03/18/23 prednisone 20 mg tablet 40 mg (2 x 20 mg) PO DAILY #10 tabs 03/18/23 thiamine mononitrate (vit B1) 100 100 mg PO DAILY #30 tabs 03/18/23 mg tablet aspirin 81 mg tablet,delayed 81 mg PO DAILY #90 tabs 03/22/23 release gabapentin 300 mg capsule 900 mg (3 x 300 mg) PO TID 30 days 03/22/23 #270 caps prazosin 1 mg capsule 3 mg PO BEDTIME 30 days #90 caps 03/22/23 insulin lispro 100 unit/mL 10 unit (0.1 mL) subcut TIDAC #10 04/16/23 subcutaneous solution (Humalog mL U-100 Insulin) albuterol sulfate 90 mcg/actuation 2 puff inhalation Q6H PRN for 04/22/23 aerosol inhaler (Ventolin HFA) wheezing #8.5 grams Allergies Allergy/AdvReac Type Severity Reaction Status Date / Time acetaminophen [Vicodin] Allergy Unknown Unknown Verified 05/11/23 09:26 hydrocodone [Vicodin] Allergy Unknown Unknown Verified 05/11/23 09:26 sumatriptan [From IMITREX] Allergy Unknown VOMITING,RA Verified 05/11/23 09:26 Review of Systems Review of Systems: Yes all other systems are reviewed and are negative [facility] Past Medical History [facility] Narrative: Social history: She does smoke cigarettes. She drinks 5 shots of fireball whiskey per day. She denies drug use. Medical History Shoulder pain Decreased vision of left eye Abnormal LFTs Bilateral pneumonia Polysubstance abuse Depression Substance abuse Physical exam Cocaine use disorder, moderate, dependence Tension headache Occipital headache Anxiety Diabetes UTI (urinary tract infection) Nausea & vomiting Sinusitis Pyelonephritis Cocaine abuse Cirrhosis Obesity Anxiety and depression Lightheaded Cranial nerve dysfunction Depression Anxiety Splenic vein thrombosis COPD (chronic obstructive pulmonary disease) Hypertension Nephrolithiasis Surgical History H/O wrist surgery Family History Family History Father No problems noted. Mother Diabetes Social History Social History Household Members: Other Household Members Other:: Son Housing: Apartment Are you a primary health care specialist to a significant other at home: No Do you presently have visiting nurse or other home services: Yes Alcohol intake: current Alcohol intake frequency: 3 or more drinks per day Comment: Pt is on 1:1 equipment observations. Patient Tobacco Use Status: Current everyday Tobacco user Tobacco use type: Cigarette Cigarette Packs Per Day: 1 Cigarettes Per Day: 20.0 Years Smoked: 30+ Smoked in Last 30 Days: Yes e-Cigarette/Vaping Use: Never Used Second Hand Smoke Exposure: No Use of substances other than those prescribed or required for medical reasons: Yes Substance Use Type: Marijuana Advance Directives: No Advance Directives Information Provided: Yes Patient : No service: No Current occupational status: disabled Sexual orientation: Straight/Heterosexual Gender identity: Female Cognitive needs: Yes Hearing needs: No Vision needs: No Physical Exam Vital Signs: Vital Signs: Last Vital Signs Temp 98.3 F 05/11/23 09:34 Pulse 102 H 05/11/23 14:45 Resp 18 05/11/23 14:45 BP 151/86 H 05/11/23 14:45 Pulse Ox 95 05/11/23 14:45 O2 Del Method Nasal Cannula 05/11/23 14:45 O2 Flow Rate 3 05/11/23 14:45 BMI result Body Mass Index 38.6 Vital signs revealed an elevated pulse of 114 Exam General: Awake, alert in no distress Head: Normocephalic, atraumatic EENT: PERRL, Lids normal, sclera normal, conjunctiva normal, nose normal , ears normal, throat without erythema or exudates Neck: Supple, no adenopathy, no trachea midline or C-spine tenderness Lung: breath sounds symmetric, no wheezing, rales or rhonchi Chest: symmetric movement, tender right anterior chest wall Heart: regular rate and rhythm, normal S1, S2 no murmurs or rubs Abdomen: soft, non-tender, nondistended, normal bowel sounds Back: no vertebral tenderness, no CVAT Extremities: no deformities, moves all extremities symmetrically Skin: Patient has erythema to both lower extremities which appear to be symmetric, no increased warmth-consistent with chronic stasis dermatitis Neuro: Awake, alert, oriented, normal speech, cranial nerves intact, moves all extremities symmetrically Psych: Pleasant, cooperative Medications Administered Generic Name Dose Route Start Last Admin Trade Name Freq PRN Reason Stop Dose Admin Potassium Chloride 10 meq in 100 mls @ 100 mls/hr 05/11/23 12:00 05/11/23 14:36 Potassium Chloride/H20 IV 05/11/23 15:59 100 mls/hr Q1H NAYE Administration Discontinued Medications Generic Name Dose Route Start Last Admin Trade Name Freq PRN Reason Stop Dose Admin Sodium Chloride 1,000 mls @ 999 mls/hr 05/11/23 09:45 05/11/23 10:58 Ns IV 05/11/23 10:45 Infused .Q1H1M NAYE Infusion Promethazine HCl 12.5 mg/ 50.5 mls @ 202 mls/hr 05/11/23 12:09 05/11/23 12:53 Sodium Chloride IV 05/11/23 12:10 Infused ONCE ONE Infusion Lactated Ringer's 1,000 mls @ 999 mls/hr 05/11/23 12:30 05/11/23 13:37 Lr IV 05/11/23 13:30 Infused .Q1H1M NAYE Infusion Insulin Human Regular 10 unit 05/11/23 10:09 05/11/23 10:24 Insulin Regular, Human 100 Unit/Ml 3 Ml Vial IVPUSH 05/11/23 10:10 10 unit ONCE ONE Administration Insulin Human Regular 10 unit 05/11/23 12:15 05/11/23 12:31 Insulin Regular, Human 100 Unit/Ml 3 Ml Vial IVPUSH 05/11/23 12:16 10 unit ONCE ONE Administration Ketorolac Tromethamine 15 mg 05/11/23 10:09 05/11/23 10:24 Ketorolac Tromethamine 15 Mg/Ml Vial IVPUSH 05/11/23 10:10 15 mg ONCE STA Administration Methadone HCl 140 mg 05/11/23 12:09 05/11/23 13:26 Methadone Hcl 20 Mg/2 Ml Oral.Conc PO 05/11/23 12:10 140 mg ONCE ONE Administration Ondansetron HCl 4 mg 05/11/23 10:10 05/11/23 10:24 Ondansetron Hcl 4 Mg/2 Ml Vial IVPUSH 05/11/23 10:11 4 mg ONCE ONE Administration Medical Decision Making Medical Decision Making [facility] Narrative: 57-year-old female with history of hypertension, hyperlipidemia, COPD, depression, PTSD, opiate use disorder, cocaine use disorder, alcohol use disorder who presents emergency department for evaluation of vomiting, right anterior chest pain, productive cough, elevated glucose, frequency and dysuria x3 days. Vital signs did reveal tachycardia otherwise unremarkable. Physical examination did reveal right-sided chest wall tenderness. Following evaluation was ordered: CBC, CMP, troponin, beta hydroxybutyrate, ammonia, BMP, VBG, urinalysis, chest x-ray, EKG Patient was treated with normal saline x1 L IV, Toradol 15 mg IV, Zofran 4 mg IV and insulin 10 units IV 12:18 My interpretation patient's laboratory evaluation is as follows: CBC was normal. Potassium low 2.8. Chloride low 79. Bicarb high 32. Glucose elevated 700. Anion gap elevated 31. Alk-phos elevated 191. Lipase elevated 177. Troponin elevated 107.1. RSV, flu and influenza negative. Venous pH elevated 7.47 with an elevated venous pCO2 52. Venous bicarb was high 38. Patient had a significantly elevated glucose as well as a significant low potassium but elevated pH of 7.47 suggest that she does not have DKA despite the elevated anion gap of 31. Patient's glucose did improved to 433 after receiving 10 units of insulin. I ordered potassium chloride 10 mEq in 100 mL of normal saline times 4 doses. Patient was given Phenergan 12.5 mg IV for nausea and her methadone 140 mg orally. Also treat the patient with a lactated Ringer's x1 L. 15:07 Patient's point of care glucose did come down to 322 and this was confirmed with serum glucose of 323. The patient's potassium did not improve, I did add a serum magnesium and I will give the patient magnesium 2 g IV for further replacing potassium.. Patient's anion gap did significantly improved from 31 to 17. The patient had significant electrolyte and elevated glucose, patient will need to be admitted for further management. Patient is also withdrawing from alcohol and was started on the phenobarbital protocol. She will be placed on the CIWA scale every 4 hours. Differential Diagnosis Differential Diagnoses: The differential diagnosis associated with the presentation includes Lab Data MDM Lab Attestation statement: I reviewed the patient's lab results. 05/11/23 09:55 05/11/23 14:34 Labs: Lab Results 05/11/23 05/11/23 05/11/23 Range/Units 09:38 09:46 09:55 WBC 4.8 (4.8-10.8) X10*3/uL RBC 4.15 L D (4.20-5.50) X10*6/uL Hgb 12.5 D (12.0-16.0) g/dl Hct 41.7 (37.0-47.0) % MCV 100.5 H (80.0-98.0) fL MCH 30.1 (27.0-33.0) pg MCHC 30.0 L (31.0-35.0) g/dl RDW 16.0 (11.0-16.0) % Plt Count 204 (160-400) X10*3/uL MPV 10.1 (9.4-12.3) fL Immature Gran % (Auto) 0.4 (0.0-0.4) % Neut % (Auto) 80.0 H (45-73) % Lymph % (Auto) 13.4 L (20-40) % [place] % (Auto) 5.2 (2-11) % Eos % (Auto) 0.6 (0-4) % Baso % (Auto) 0.4 (0-2) % Lymph # (Auto) 0.7 L (1.2-4.9) X10*3/uL [place] # (Auto) 0.3 (0.1-1.2) X10*3/uL Eos # (Auto) 0.0 (0.0-0.4) X10*3/uL Baso # (Auto) 0.0 (0.0-0.2) X10*3/uL Abs Immat Gran (auto) 0.02 (0.00-0.03) X10*3/uL Absolute Neuts (auto) 3.9 (2.0-8.3) x10*3/uL Absolute Nucleated RBC 0.000 (0.0-0.012) X10*3/uL Nucleated RBC % (auto) 0.0 (0.0-0.2) /100WBC VBG pH (7.32-7.43) VBG pCO2 mmHg VBG pO2 mmHg VBG HCO3 (22-26) mmol/L VBG O2 Saturation % VBG Base Excess mmol/L Sodium 139 (135-145) mmol/L Potassium 2.8 L (3.3-5.1) mmol/L Chloride 79 L D (96-108) mmol/L Carbon Dioxide 32 H (22-29) mmol/L Anion Gap 31 H (12-20) BUN 6 L (9-16) mg/dL Creatinine 1.10 (0.5-1.4) mg/dL Estim Creat Clear Calc 56.2 Estimated GFR 51 POC Glucose > 600 H* 599 H* (60-115) mg/dL Random Glucose 700 H* (60-115) mg/dL Calcium 8.3 L (8.4-10.2) mg/dL Total Bilirubin 0.7 (0.0-1.0) mg/dL AST 36 H (5-31) U/L ALT 19 (0-31) U/L Alkaline Phosphatase 191 H (39-117) U/L Ammonia (13-55) umol/L Troponin I High Sens 107.1 H* D (<3.5-17.0) ng/L B-Natriuretic Peptide (<100) pg/mL Total Protein 7.2 (6.5-8.0) g/dL Albumin 3.1 L (3.5-5.0) g/dL Lipase 177 H (8-78) U/L Beta-Hydroxybutyrate 0.28 H (0.02-0.27) mmol/L Ethyl Alcohol mg/dL 05/11/23 05/11/23 05/11/23 Range/Units 09:56 10:02 10:45 WBC (4.8-10.8) X10*3/uL RBC (4.20-5.50) X10*6/uL Hgb (12.0-16.0) g/dl Hct (37.0-47.0) % MCV (80.0-98.0) fL MCH (27.0-33.0) pg MCHC (31.0-35.0) g/dl RDW (11.0-16.0) % Plt Count (160-400) X10*3/uL MPV (9.4-12.3) fL Immature Gran % (Auto) (0.0-0.4) % Neut % (Auto) (45-73) % Lymph % (Auto) (20-40) % [place] % (Auto) (2-11) % Eos % (Auto) (0-4) % Baso % (Auto) (0-2) % Lymph # (Auto) (1.2-4.9) X10*3/uL [place] # (Auto) (0.1-1.2) X10*3/uL Eos # (Auto) (0.0-0.4) X10*3/uL Baso # (Auto) (0.0-0.2) X10*3/uL Abs Immat Gran (auto) (0.00-0.03) X10*3/uL Absolute Neuts (auto) (2.0-8.3) x10*3/uL Absolute Nucleated RBC (0.0-0.012) X10*3/uL Nucleated RBC % (auto) (0.0-0.2) /100WBC VBG pH 7.47 H (7.32-7.43) VBG pCO2 52 mmHg VBG pO2 63 mmHg VBG HCO3 38 H (22-26) mmol/L VBG O2 Saturation 89.0 % VBG Base Excess 12.8 mmol/L Sodium (135-145) mmol/L Potassium (3.3-5.1) mmol/L Chloride (96-108) mmol/L Carbon Dioxide (22-29) mmol/L Anion Gap (12-20) BUN (9-16) mg/dL Creatinine (0.5-1.4) mg/dL Estim Creat Clear Calc Estimated GFR POC Glucose (60-115) mg/dL Random Glucose (60-115) mg/dL Calcium (8.4-10.2) mg/dL Total Bilirubin (0.0-1.0) mg/dL AST (5-31) U/L ALT (0-31) U/L Alkaline Phosphatase (39-117) U/L Ammonia 33 (13-55) umol/L Troponin I High Sens (<3.5-17.0) ng/L B-Natriuretic Peptide 157 H (<100) pg/mL Total Protein (6.5-8.0) g/dL Albumin (3.5-5.0) g/dL Lipase (8-78) U/L Beta-Hydroxybutyrate (0.02-0.27) mmol/L Ethyl Alcohol 16 mg/dL 05/11/23 05/11/23 05/11/23 Range/Units 12:11 14:29 14:34 WBC (4.8-10.8) X10*3/uL RBC (4.20-5.50) X10*6/uL Hgb (12.0-16.0) g/dl Hct (37.0-47.0) % MCV (80.0-98.0) fL MCH (27.0-33.0) pg MCHC (31.0-35.0) g/dl RDW (11.0-16.0) % Plt Count (160-400) X10*3/uL MPV (9.4-12.3) fL Immature Gran % (Auto) (0.0-0.4) % Neut % (Auto) (45-73) % Lymph % (Auto) (20-40) % [place] % (Auto) (2-11) % Eos % (Auto) (0-4) % Baso % (Auto) (0-2) % Lymph # (Auto) (1.2-4.9) X10*3/uL [place] # (Auto) (0.1-1.2) X10*3/uL Eos # (Auto) (0.0-0.4) X10*3/uL Baso # (Auto) (0.0-0.2) X10*3/uL Abs Immat Gran (auto) (0.00-0.03) X10*3/uL Absolute Neuts (auto) (2.0-8.3) x10*3/uL Absolute Nucleated RBC (0.0-0.012) X10*3/uL Nucleated RBC % (auto) (0.0-0.2) /100WBC VBG pH (7.32-7.43) VBG pCO2 mmHg VBG pO2 mmHg VBG HCO3 (22-26) mmol/L VBG O2 Saturation % VBG Base Excess mmol/L Sodium 139 (135-145) mmol/L Potassium 2.6 L (3.3-5.1) mmol/L Chloride 84 L (96-108) mmol/L Carbon Dioxide 41 H* D (22-29) mmol/L Anion Gap 17 (12-20) BUN 7 L (9-16) mg/dL Creatinine 0.82 (0.5-1.4) mg/dL Estim Creat Clear Calc 75.4 Estimated GFR > 60 POC Glucose 433 H* 322 H (60-115) mg/dL Random Glucose 323 H (60-115) mg/dL Calcium 7.9 L (8.4-10.2) mg/dL Total Bilirubin (0.0-1.0) mg/dL AST (5-31) U/L ALT (0-31) U/L Alkaline Phosphatase (39-117) U/L Ammonia (13-55) umol/L Troponin I High Sens (<3.5-17.0) ng/L B-Natriuretic Peptide (<100) pg/mL Total Protein (6.5-8.0) g/dL Albumin (3.5-5.0) g/dL Lipase (8-78) U/L Beta-Hydroxybutyrate (0.02-0.27) mmol/L Ethyl Alcohol mg/dL Radiology Impression Discussion of test interpretation with radiology: I have reviewed the radiologist's reading. Radiologist Impression: XR chest 1V IMPRESSION: 1. Mild residual bibasilar opacities have substantially improved since exam of 03/15/2023. Possible trace left pleural effusion. 2. The chin obscures the lung apices. If there is concern for pneumothorax or other apical pathology, then repeat view for better visualization of the apices is recommended. Dictated By: Leigha Moreno MD Critical Care Time Critical Care Time Critical Care Time: Yes Total Critical Care Time: 125 Attestation: Critical Care: The patient was critically ill with a high probability of imminent or life threatening deterioration. I spent greater than 30 minutes of discontinuous time evaluating the patient,delivering critical care at the bedside, discussing and evaluating pertinent data with consultants. Critical care time does not include time spent performing separately billable procedures or teaching. Total time spent performing critical care was 125 minutes. Discharge Plan Discharge Patient Disposition: Admitted As Inpatient Prescriptions: No Action (DME) cane Device See Rx Instructions .Route Qty: 1 0RF Rx Instructions: As directed (DME) pen needle, diabetic [BD Ultra-Fine Micro Pen Needle] 32 gauge x 1/4 needle See Rx Instructions .Route Qty: 100 8RF Rx Instructions: test 4 times per day docusate sodium [Colace] 100 mg capsule 100 mg PO BID Qty: 60 4RF (DME) insulin syringe-needle U-100 [BD Insulin Syringe Ultra-Fine] 1 mL 31 gauge x 5/16 syringe See Rx Instructions .Route Qty: 100 2RF Rx Instructions: As directed 4 times per day mirtazapine 30 mg tablet 30 mg PO BEDTIME 30 Days Qty: 30 5RF insulin glargine [Lantus Solostar U-100 Insulin] 100 unit/mL (3 mL) insulin pen 40 unit SUBCUT DAILY Qty: 15 0RF (DME) FreeStyle Lite Strips Strip Qty: 100 12RF Rx Instructions: Test four times a day or as directed. aspirin 81 mg tablet,delayed release (DR/EC) 81 mg PO DAILY Qty: 90 3RF gabapentin 300 mg capsule 900 mg PO TID 30 Days Qty: 270 7RF prazosin 1 mg capsule 3 mg PO BEDTIME 30 Days Qty: 90 3RF Protocol: Hold for SBP< HOLD for SBP < : 90 insulin lispro [Humalog U-100 Insulin] 100 unit/mL solution 10 unit subcut TIDAC Qty: 10 0RF albuterol sulfate [Ventolin HFA] 90 mcg/actuation HFA aerosol inhaler 2 puff inhalation Q6H PRN (Reason: for wheezing) Qty: 8.5 0RF methadone [Methadone Intensol] 10 mg/mL Concentrate 140 mg PO DAILY (DME) pulse oximeter See Rx Instructions Rx Instructions: As directed nicotine 7 mg/24 hr Patch 24 Hour 7 mg transdermal DAILY Qty: 30 0RF (DME) blood-glucose meter [FreeStyle Lite Meter] Kit Qty: 1 0RF Rx Instructions: As Directed (DME) lancets [FreeStyle Lancets] 28 gauge misc Qty: 100 0RF Rx Instructions: Test four times a day or as directed. polyethylene glycol 3350 17 gram Powder In Packet 17 g PO DAILY Qty: 100 0RF sucralfate 1 gram Tablet 1 g PO QIDACHS Qty: 120 0RF omeprazole 40 mg capsule,delayed release(DR/EC) 40 mg PO DAILY@0630 folic acid 1 mg Tablet 1 mg PO DAILY Qty: 30 0RF thiamine mononitrate (vit B1) 100 mg Tablet 100 mg PO DAILY Qty: 30 0RF furosemide 20 mg tablet 20 mg PO QAM Qty: 90 0RF prednisone 20 mg tablet 40 mg PO DAILY Qty: 10 0RF (DME) Oxygen Home Use Kit See Rx Instructions .ROUTE .MEDSUPPLY Qty: 1 12RF Rx Instructions: 2L nasal cannula continuous ipratropium-albuterol 0.5 mg-3 mg(2.5 mg base)/3 mL solution for nebulization 3 ml inhalation Q4H PRN (Reason: shortness of breath or wheezing) (DME) Wings Choice Plus Adult Briefs Misc See Rx Instructions .Route Qty: 60 0RF Rx Instructions: As directed metformin 500 mg tablet 500 mg PO BID Qty: 180 8RF quetiapine 25 mg tablet 12.5 mg PO Q4H PRN (Reason: anxiety) 30 Days Qty: 30 6RF lisinopril 5 mg tablet 5 mg PO DAILY Qty: 30 4RF fluticasone propion-salmeterol [Advair Diskus] 250-50 mcg/dose blister with device 1 inh inhalation BID Qty: 60 11RF
[2023-05-11] MEDS: 0.9 % Sodium Chloride 1,000 ML 999 ML IV (09:57)
[2023-05-11 10:03] LABS: MANUAL DIFF FLAG NO
[2023-05-11 10:06] LABS: Basophils Percent Auto 0.4 % (0-2); Eosinophils Percent Auto 0.6 % (0-4); Hematocrit 41.7 % (37.0-47.0); Hemoglobin 12.5 g/dl (12.0-16.0); Imm Gran Abs Auto 0.02 X10*3/uL (0.00-0.03); Imm Gran Pct Auto 0.4 % (0.0-0.4); Lymphocytes Absolute Auto 0.7 X10*3/uL (1.2-4.9); Lymphocytes Percent Auto 13.4 % (20-40); Mean Corpuscular Hemoglobin 30.1 pg (27.0-33.0); Mean Corpuscular Volume 100.5 fL (80.0-98.0); Mean Platelet Volume 10.1 fL (9.4-12.3); Monocytes Absolute Auto 0.3 X10*3/uL (0.1-1.2); Monocytes Percent Auto 5.2 % (2-11); Neutrophils Absolute Auto 3.9 x10*3/uL (2.0-8.3); Platelet Count 204 X10*3/uL (160-400); Red Blood Count 4.15 X10*6/uL (4.20-5.50); White Blood Count 4.8 X10*3/uL (4.8-10.8)
[2023-05-11 10:10] LABS: VBG Base Excess 12.8 mmol/L; VBG HCO3 38 mmol/L (22-26); VBG pCO2 52 mmHg; VBG pH 7.47 (7.32-7.43); VBG pO2 63 mmHg
[2023-05-11 10:20] LABS: Ammonia 33 umol/L (13-55)
[2023-05-11 10:23] LABS: Beta-Hydroxybutyrate 0.28 mmol/L (0.02-0.27)
[2023-05-11] MEDS: ondansetron HCL 4 MG/2 ML VIAL IVPUSH (10:24)
[2023-05-11] MEDS: Ketorolac Tromethamine 15 MG/ML VIAL IVPUSH (10:24)
[2023-05-11] MEDS: Insulin Regular, Human 100 UNIT/ML 3 ML VIAL 10 UNIT IVPUSH ×2 (10:24→12:31)
--- NOTE | 2023-05-11 10:28 | PC.NURSE ---
xray bedside. medication administered per provider order - will reassess POC shortly.
[2023-05-11 10:31] LABS: B Type Natriuretic Peptide 157 pg/mL (<100)
[2023-05-11 10:32] LABS: Alanine Aminotransferase 19 U/L (0-31); Albumin Level 3.1 g/dL (3.5-5.0); Alkaline Phosphatase 191 U/L (39-117); Anion Gap 31 (12-20); Aspartate Amino Transferase 36 U/L (5-31); Bilirubin Total 0.7 mg/dL (0.0-1.0); Blood Urea Nitrogen 6 mg/dL (9-16); Calcium 8.3 mg/dL (8.4-10.2); Carbon Dioxide 32 mmol/L (22-29); Chloride 79 mmol/L (96-108); Creatinine Clr Calc Pharmacy 56.2; Estimated Glomerular Filt Rate 51; Glucose Random 700 mg/dL (60-115); Lipase 177 U/L (8-78); Potassium 2.8 mmol/L (3.3-5.1); Sodium 139 mmol/L (135-145); Total Protein 7.2 g/dL (6.5-8.0); Troponin-I High Sensitivity 107.1 ng/L (<3.5-17.0)
[2023-05-11 10:36] LABS: Venous Blood Gas Refer to POC result
--- NOTE | 2023-05-11 10:36 | PC.NURSE ---
pt's O2 was dropping to 87%-88% on 2L via NC - pt bumped to 3L via NC - resting at 92%-93% at this time. no sob/wob noted. pt seemingly weak at this time. respirations even and unlabored. call moore placed within reach.
[2023-05-11 11:06] LABS: Ethanol 16 mg/dL
--- NOTE | 2023-05-11 11:34 | PC.NURSE ---
this RN spoke w/ ANTOINE Hong at [facility] to verify methadone dose - pt's last methadone dose was 140mg at 05/10/23 @ 0601. methadone verification form filled/faxed to pharmacy. form placed in pt's chart. will administer medication when able.
[2023-05-11 12:19] LABS: Glucose, Whole Blood 433 mg/dL (60-115)
[2023-05-11] MEDS: Lactated Ringers 1,000 ML 999 ML IV (12:36)
[2023-05-11] MEDS: Potassium Chloride/H20 10 MEQ/100 ML PIGGYBACK 100 MEQ IV ×4 (12:43→17:48)
--- NOTE | 2023-05-11 12:46 | PC.NURSE ---
POC decreased to 433 - provider aware. medication's administered per provider order. will reassess POC shortly.
--- NOTE | 2023-05-11 12:53 | PC.NURSE ---
pt c/o 12/23 pain at this time. medications administered per provider order. ED provider bedside speaking w/ pot about lab results. respirations remain even and unlabored. pt aware of plan of care at this time. call moore placed within reach.
--- NOTE | 2023-05-11 13:11 | HE.PHANOTE ---
RE: METHADONE VERIFICATION Nurse (Shanta Roldan) sent image of methadone verification via [employer]. Last dose was 140 mg given on 05/10/23 @0601 per [facility]Z at [facility].
[2023-05-11] MEDS: methADONE HCl 20 MG/2 ML ORAL.CONC 140 MG PO (13:26)
[2023-05-11 14:34] LABS: Glucose, Whole Blood 322 mg/dL (60-115)
[2023-05-11] MEDS: PHENobarbitaL sodium 130 MG/ML IM ONCE 273 MG IM (14:45)
--- NOTE | 2023-05-11 14:48 | PC.NURSE ---
vss and up to date. updated POC of 322mg/dL - provider aware. medications administered per provider order. phenobarbitol protocol initiated per provider order. CIWA = 9. respirations remain even and unlabored. call moore placed within reach.
[2023-05-11 14:53] LABS: Blood Urea Nitrogen 7 mg/dL (9-16); Calcium 7.9 mg/dL (8.4-10.2); Creatinine Clr Calc Pharmacy 75.4; Estimated Glomerular Filt Rate > 60; Glucose Random 323 mg/dL (60-115)
[2023-05-11 15:03] LABS: Anion Gap 17 (12-20); Carbon Dioxide 41 mmol/L (22-29); Chloride 84 mmol/L (96-108); Potassium 2.6 mmol/L (3.3-5.1); Sodium 139 mmol/L (135-145)
[2023-05-11 15:26] LABS: Troponin-I High Sensitivity 117.2 ng/L (<3.5-17.0)
[2023-05-11] MEDS: Magnesium Sulfate/H2O 2 GM/50 ML PIGGYBACK IV (16:02)
[2023-05-11 16:04] LABS: Magnesium 1.2 mg/dL (1.6-2.6)
[2023-05-11 16:11] LABS: Glucose, Whole Blood 340 mg/dL (60-115)
--- NOTE | 2023-05-11 16:15 | PC.NURSE ---
medications administered per provider order. admitting provider bedside.
--- NOTE | 2023-05-11 16:18 | PM.IMHP ---
History of Present Illness Date of Service: 05/11/23 Chief Complaint: Vomiting, a 57-year-old female with a past medical history of COPD ( 2 L O2 as needed at home),? aortic stenosis, congestive heart failure,? hypertension, polysubstance abuse (? on methadone), ? alcohol abuse, diabetes mellitus type 2, and anxiety? who presents to the emergency room with vomiting and chest tightness. The patient has reported right sided chest pain associated with the cough and ambulation. denies any fever, chills, palpitations, SOB, diarrhea or urinary symptoms. denies any bleeding. Noticed her blood sugar was running high up to 700 in ED with anion gap. responded to IV fluids and Insulin. admitted for further work up and treatment. Review of Systems Review of Systems: No fever, chills but has weakness right sided chest pain, with palpitation shortness of breath and coughing No abdominal pain,but having nausea or vomiting No urinary symptoms PMFSH Medical History History of chronic carbon dioxide retention Alcohol abuse CHF (congestive heart failure) Type 2 diabetes mellitus with hyperglycemia Shoulder pain Decreased vision of left eye Abnormal LFTs Bilateral pneumonia Polysubstance abuse Depression Substance abuse Physical exam Cocaine use disorder, moderate, dependence Tension headache Occipital headache Anxiety Diabetes UTI (urinary tract infection) Nausea & vomiting Sinusitis Pyelonephritis Cocaine abuse Cirrhosis Obesity Anxiety and depression Lightheaded Cranial nerve dysfunction Depression Anxiety Splenic vein thrombosis COPD (chronic obstructive pulmonary disease) Hypertension Nephrolithiasis Family History Father No problems noted. Mother Diabetes Surgical History H/O wrist surgery Social History Household Members: Family Household Members Other:: adult son Housing: Apartment Are you a primary respiratory care instructor to a significant other at home: No Do you presently have visiting nurse or other home services: No Alcohol intake: current Alcohol intake frequency: 3 or more drinks per day Comment: Pt is on 1:1 equipment observations. Patient Tobacco Use Status: Current everyday Tobacco user Tobacco use type: Cigarette Cigarette Packs Per Day: 1 Cigarettes Per Day: 20.0 Years Smoked: 30+ Smoked in Last 30 Days: Yes e-Cigarette/Vaping Use: Never Used Patient Interested in Nicotine Replacement: Yes Second Hand Smoke Exposure: No Use of substances other than those prescribed or required for medical reasons: Yes Substance Use Type: Former Substance User and Marijuana Last Used Substance: Unknown Currently Displaying Signs/Symptoms of Drug Intoxication Withdrawal: No Have you been hit, kicked, punched, or otherwise hurt by someone within the past year? If so, by whom?: No Do you feel safe in your current relationship?: No Current Relationship Advance Directives: No Advance Directives Information Provided: Yes Do you have thoughts of harming others: None Recently lost weight without trying: Unsure Nutrition Risks: Poor intake 0-25% >4 days Patient : No : No Poor oral hygiene: No service: No Current occupational status: disabled Sexual orientation: Straight/Heterosexual Gender identity: Female Cognitive needs: Yes Hearing needs: No Vision needs: No Meds Allergies Allergy/AdvReac Type Severity Reaction Status Date / Time acetaminophen [Vicodin] Allergy Unknown Unknown Verified 05/11/23 09:26 hydrocodone [Vicodin] Allergy Unknown Unknown Verified 05/11/23 09:26 sumatriptan [From IMITREX] Allergy Unknown VOMITING,RA Verified 05/11/23 09:26 Active Medications: Current Medications Dextrose (Dextrose 50 % 25 Gm/50 Ml Syringe) 25 gm IVPUSH Q30M PRN PRN Reason: BG < 70 Magnesium Sulfate (Magnesium Sulfate/H2o) 2 gm in 50 mls @ 25 mls/hr IV ONCE ONE Stop: 05/11/23 17:27 Last Admin: 05/11/23 16:02 Dose: 25 mls/hr Pharmacy Consult (Consult Rx Etoh Phenob Im/Po) 1 each MISCELLANE ONCE PRN; Protocol PRN Reason: Consult order Phenobarbital (Phenobarbital 30 Mg Tablet) 30 mg PO BID [facility] Stop: 05/13/23 21:01 Phenobarbital (Phenobarbital 15 Mg Tablet) 15 mg PO BID [facility] Stop: 05/15/23 21:01 Phenobarbital (Phenobarbital 15 Mg Tablet) 15 mg PO DAILY [facility] Stop: 05/17/23 09:01 Phenobarbital Sodium (Phenobarbital Sodium 130 Mg/Ml Vial Im Q3hx2) 205 mg IM Q3H [facility] Stop: 05/11/23 20:01 Home Medications Medication Instructions Recorded Confirmed Last Taken Type methadone 10 mg/mL oral 140 mg PO DAILY 02/02/22 05/11/23 05/10/23 History concentrate (Methadone Intensol) pulse oximeter 02/03/22 01/07/23 Unknown History ipratropium 0.5 mg-albuterol 3 mg 3 ml inhalation Q4H PRN shortness 09/29/22 05/11/23 Unknown History (2.5 mg base)/3 mL nebulization of breath or wheezing soln omeprazole 40 mg capsule,delayed 40 mg PO DAILY@0630 03/15/23 05/11/23 05/10/23 History release docusate sodium 100 mg capsule 100 mg PO BID PRN Constipation 05/11/23 05/11/23 Unknown History (Colace) insulin glargine 100 unit/mL (3 40 unit subcut BEDTIME 05/11/23 05/11/23 05/10/23 History mL) subcutaneous pen (Lantus Solostar U-100 Insulin) polyethylene glycol 3350 17 gram 17 g PO DAILY PRN Constipation 05/11/23 05/11/23 05/10/23 History oral powder packet Physical Exam Vital Signs and Narrative: Vital Signs: Last Vital Signs Temp 98.3 F 05/11/23 09:34 Pulse 109 H 05/11/23 15:52 Resp 14 05/11/23 15:52 BP 140/76 H 05/11/23 15:52 Pulse Ox 97 05/11/23 15:52 O2 Del Method Nasal Cannula 05/11/23 15:52 O2 Flow Rate 3 05/11/23 15:52 BMI result Body Mass Index 38.6 Const: Other: Constitutional : Awake, interactive,in distress, obese Neck : Normal inspection, Supple Cardiovascular : RRR, no JVP, +1 lower extremity edema Respiratory : decreased bilateral air entry, no crackles, scattered expiratory wheezes Gastrointestinal: soft, lax, Normal bowel sounds, Non tender Skin : Warm, Dry Neurological : Alert & oriented x3, No focal deficit Results Labs 05/12/23 07:56 05/12/23 07:56 Labs: Laboratory Results - last 24 hr 05/11/23 05/11/23 05/11/23 09:38 09:46 09:55 MCV 100.5 H MCH 30.1 MCHC 30.0 L RDW 16.0 Plt Count 204 MPV 10.1 Immature Gran % (Auto) 0.4 Neut % (Auto) 80.0 H Lymph % (Auto) 13.4 L Lawrence % (Auto) 5.2 Eos % (Auto) 0.6 Baso % (Auto) 0.4 Lymph # (Auto) 0.7 L Lawrence # (Auto) 0.3 Eos # (Auto) 0.0 Baso # (Auto) 0.0 Abs Immat Gran (auto) 0.02 Absolute Neuts (auto) 3.9 Absolute Nucleated RBC 0.000 Nucleated RBC % (auto) 0.0 VBG pH VBG pCO2 VBG pO2 VBG HCO3 VBG O2 Saturation VBG Base Excess Anion Gap 31 H Estim Creat Clear Calc 56.2 Estimated GFR 51 POC Glucose > 600 H* 599 H* Random Glucose 700 H* Calcium 8.3 L Magnesium Total Bilirubin 0.7 AST 36 H ALT 19 Alkaline Phosphatase 191 H Ammonia B-Natriuretic Peptide Total Protein 7.2 Albumin 3.1 L Lipase 177 H Beta-Hydroxybutyrate 0.28 H Ethyl Alcohol 05/11/23 05/11/23 05/11/23 09:56 10:02 10:45 MCV MCH MCHC RDW Plt Count MPV Immature Gran % (Auto) Neut % (Auto) Lymph % (Auto) Lawrence % (Auto) Eos % (Auto) Baso % (Auto) Lymph # (Auto) Lawrence # (Auto) Eos # (Auto) Baso # (Auto) Abs Immat Gran (auto) Absolute Neuts (auto) Absolute Nucleated RBC Nucleated RBC % (auto) VBG pH 7.47 H VBG pCO2 52 VBG pO2 63 VBG HCO3 38 H VBG O2 Saturation 89.0 VBG Base Excess 12.8 Anion Gap Estim Creat Clear Calc Estimated GFR POC Glucose Random Glucose Calcium Magnesium Total Bilirubin AST ALT Alkaline Phosphatase Ammonia 33 B-Natriuretic Peptide 157 H Total Protein Albumin Lipase Beta-Hydroxybutyrate Ethyl Alcohol 16 05/11/23 05/11/23 05/11/23 12:11 14:29 14:34 MCV MCH MCHC RDW Plt Count MPV Immature Gran % (Auto) Neut % (Auto) Lymph % (Auto) Lawrence % (Auto) Eos % (Auto) Baso % (Auto) Lymph # (Auto) Lawrence # (Auto) Eos # (Auto) Baso # (Auto) Abs Immat Gran (auto) Absolute Neuts (auto) Absolute Nucleated RBC Nucleated RBC % (auto) VBG pH VBG pCO2 VBG pO2 VBG HCO3 VBG O2 Saturation VBG Base Excess Anion Gap 17 Estim Creat Clear Calc 75.4 Estimated GFR > 60 POC Glucose 433 H* 322 H Random Glucose 323 H Calcium 7.9 L Magnesium 1.2 L* Total Bilirubin AST ALT Alkaline Phosphatase Ammonia B-Natriuretic Peptide Total Protein Albumin Lipase Beta-Hydroxybutyrate Ethyl Alcohol 05/11/23 16:08 MCV MCH MCHC RDW Plt Count MPV Immature Gran % (Auto) Neut % (Auto) Lymph % (Auto) Lawrence % (Auto) Eos % (Auto) Baso % (Auto) Lymph # (Auto) Lawrence # (Auto) Eos # (Auto) Baso # (Auto) Abs Immat Gran (auto) Absolute Neuts (auto) Absolute Nucleated RBC Nucleated RBC % (auto) VBG pH VBG pCO2 VBG pO2 VBG HCO3 VBG O2 Saturation VBG Base Excess Anion Gap Estim Creat Clear Calc Estimated GFR POC Glucose 340 H Random Glucose Calcium Magnesium Total Bilirubin AST ALT Alkaline Phosphatase Ammonia B-Natriuretic Peptide Total Protein Albumin Lipase Beta-Hydroxybutyrate Ethyl Alcohol Imaging Radiologist's Impressions: Impressions Chest X-Ray 05/11/23 10:25 IMPRESSION: 1. Mild residual bibasilar opacities have substantially improved since exam of 03/15/2023. Possible trace left pleural effusion. 2. The chin obscures the lung apices. If there is concern for pneumothorax or other apical pathology, then repeat view for better visualization of the apices is recommended. Assessment and Plan (1) Hypomagnesemia: Status: Acute (2) Methadone dependence: Status: Acute (3) Alcohol withdrawal: Qualifiers: Complication of substance-induced condition: uncomplicated Qualified Code(s): F10.930 - Alcohol use, unspecified with withdrawal, uncomplicated Status: Acute (4) Acute hyperglycemia: Status: Acute (5) Acute dehydration: Status: Acute (6) Acute hypokalemia: Status: Acute (7) Vomiting: Qualifiers: Nausea presence: with nausea Vomiting type: unspecified Qualified Code(s): R11.2 - Nausea with vomiting, unspecified Status: Acute Plan a 57-year-old female with a past medical history of COPD ( 2 L O2 as needed at home),? aortic stenosis, congestive heart failure,? hypertension, polysubstance abuse (? on methadone), ? alcohol abuse, diabetes mellitus type 2, and anxiety? who presents to the emergency room with vomiting and chest tightness Hyperglycemia 2/2 uncontrolled diabetes No evidence of DKA on ABG Gap closing continue IVF give more Lantus SSI acute Hypokalemia and hypomagnesemia to give Mg and correct K follow BMP Intractable vomiting 2/2 Alcohol abuse and withdrawal CT negative Phenobarb protocol Zofran for nausea keep NPO Elevated Trop Type 2 in case of vomiting as no EKG changes repeated Trop remains flat Hx drug abuse Methadone DVT PPx Lovenox Needs 2 overnight hospital stay for treatment of Alcohol withdrawal symptoms and correcting elecytrolytes and sugar levels Quality Stroke Does the patient have a stroke diagnosis?: No VTE Prior VTE?: No VTE Risk Level:: Medical - moderate - high VTE Device Contraindication: N/A - Device Ordered VTE Drug Contraindication: Treatment Not Indicated
[2023-05-11] MEDS: Albuterol/Iprat 2.5/0.5MG 3 ML AMPUL.NEB INHALE ×2 (16:55→19:29)
--- NOTE | 2023-05-11 17:04 | PHA.MEDREC ---
Pharmacy Consult ? Medication Reconciliation Pharmacy has completed the medication reconciliation. Patient confirmed mediations based on claim history and previous medical records. Baylee Zaldivar, KianD
--- NOTE | 2023-05-11 17:07 | PC.NURSE ---
RT bedside at this time. pt receiving breathing treatment.
[2023-05-11] MEDS: Lactated Ringers 1,000 ML 100 ML IVCONT (17:34)
[2023-05-11] MEDS: Potassium Chloride ER 20 MEQ TAB.ER.PRT 40 MEQ PO ×2 (17:34→18:37)
[2023-05-11] MEDS: Enoxaparin Sodium 40 MG/0.4 ML SYRINGE SUBCUT (17:34)
[2023-05-11] MEDS: Nicotine 14 MG PATCH.TD24 TRANSDERMA (17:35)
[2023-05-11] MEDS: PHENobarbitaL sodium 130 MG/ML VIAL IM Q3Hx2 205 MG IM ×2 (17:35→20:12)
[2023-05-11] MEDS: Insulin Glargine,Hum.rec.anlog 100 UNIT/ML 10 ML VIAL 10 UNIT SUBCUT (17:36)
[2023-05-11] MEDS: oxyCODONE HCl Immed Release 5 MG TABLET PO (17:49)
[2023-05-11 17:51] LABS: Appearance Urine Cloudy; Color Urine Dark Yellow; Glucose Urine UA >=1000 mg/dL (Negative); Leukocyte Esterase Urine Small (1+) (Negative); Nitrite Urine Negative (Negative); PH 5.5 (5.0-9.0); Specific Gravity - Urine >= 1.030 (1.005-1.025); UMIC TRIGGER UACC YES; Urine Blood Small (1+) (Negative); Urine Ketones Negative (Negative); Urine Protein 30 (1+) mg/dL (Neg-Trace)
[2023-05-11 18:04] LABS: Glucose, Whole Blood 398 mg/dL (60-115)
[2023-05-11 18:13] LABS: Bacteria Urine 4+ (None Seen); Other Crystals Urine Present; RBC Urine >20 /HPF (0-2); Squamous Epithelial Cell Urine 0-2 /HPF (0-2); UACC Culture Trigger YES
[2023-05-11 18:25] LABS: Amphetamine Screen Urine Not Detected (Not Detect); Barbiturates, Urine Not Detected (Not Detect); Benzodiazepines Screen Urine POSITIVE (Not Detect); Cannabinoid Screen Urine POSITIVE (Not Detect); Cocaine Screen Urine Not Detected (Not Detect); Fentanyl, urine Not Detected (Not Detect); Opiate Screen Urine Not Detected (Not Detect); Phencyclidine Screen Urine Not Detected (Not Detect)
[2023-05-11] MEDS: Insulin Lispro 100 UNIT/ML 3 ML VIAL SUBCUT (18:38)
[2023-05-11 19:09] LABS: Glucose, Whole Blood 398 mg/dL (60-115)
--- NOTE | 2023-05-11 19:53 | PC.NURSE ---
per admitting provider, Q1HR POC's now changed to Q4HR for pt - will notify tech.
[2023-05-11] MEDS: Insulin Glargine,Hum.rec.anlog 100 UNIT/ML 10 ML VIAL 30 UNIT SUBCUT (20:12)
[2023-05-11 20:31] LABS: Anion Gap 16 (12-20); Blood Urea Nitrogen 7 mg/dL (9-16); Calcium 7.7 mg/dL (8.4-10.2); Carbon Dioxide 39 mmol/L (22-29); Chloride 84 mmol/L (96-108); Creatinine Clr Calc Pharmacy 76.3; Estimated Glomerular Filt Rate > 60; Glucose Random 345 mg/dL (60-115); Potassium 3.4 mmol/L (3.3-5.1); Sodium 136 mmol/L (135-145)
--- NOTE | 2023-05-11 21:04 | PC.NURSE ---
admission worksheet completed. transport notified at this time.
[2023-05-11 23:03] LABS: Glucose, Whole Blood 272 mg/dL (60-115)
[2023-05-12] VITALS (10 sets, daily range): BP systolic 109–138; BP diastolic 51–81; PULSE 89–107; RESP 16–20; TEMP 36.1–36.8; O2SAT 90–98
[2023-05-12 00:11] LABS: Glucose, Whole Blood 242 mg/dL (60-115)
[2023-05-12] MEDS: Insulin Lispro 100 UNIT/ML 3 ML VIAL SUBCUT ×4 (00:30→22:07)
[2023-05-12] MEDS: 0.9 % Sodium Chloride Flush 3 ML SYRINGE IVFLUSH ×4 (00:31→22:07)
[2023-05-12] MEDS: oxyCODONE HCl Immed Release 5 MG TABLET PO ×2 (00:31→22:05)
[2023-05-12] MEDS: Gabapentin 300 MG CAPSULE 900 MG PO (00:36)
[2023-05-12] MEDS: Prazosin HCL 1 MG CAPSULE 3 MG PO ×2 (00:36→22:06)
[2023-05-12] MEDS: Mirtazapine 30 MG TABLET PO ×2 (00:37→22:06)
[2023-05-12 03:45] LABS: Glucose, Whole Blood 168 mg/dL (60-115)
[2023-05-12] MEDS: Lactated Ringers 1,000 ML 100 ML IVCONT (05:55)
[2023-05-12] MEDS: Omeprazole 40 MG CAPSULE.DR PO (05:56)
[2023-05-12 06:11] LABS: Glucose, Whole Blood 160 mg/dL (60-115)
[2023-05-12 07:45] LABS: Glucose, Whole Blood 149 mg/dL (60-115)
[2023-05-12 08:06] LABS: MANUAL DIFF FLAG NO
[2023-05-12 08:12] LABS: Basophils Percent Auto 0.4 % (0-2); Eosinophils Absolute Auto 0.1 X10*3/uL (0.0-0.4); Eosinophils Percent Auto 1.3 % (0-4); Hematocrit 37.1 % (37.0-47.0); Hemoglobin 11.1 g/dl (12.0-16.0); Imm Gran Abs Auto 0.03 X10*3/uL (0.00-0.03); Imm Gran Pct Auto 0.6 % (0.0-0.4); Lymphocytes Absolute Auto 0.8 X10*3/uL (1.2-4.9); Lymphocytes Percent Auto 13.9 % (20-40); Mean Corpuscular HGB Conc 29.9 g/dl (31.0-35.0); Mean Corpuscular Hemoglobin 30.2 pg (27.0-33.0); Mean Corpuscular Volume 100.8 fL (80.0-98.0); Mean Platelet Volume 9.7 fL (9.4-12.3); Monocytes Absolute Auto 0.2 X10*3/uL (0.1-1.2); Monocytes Percent Auto 4.4 % (2-11); Neutrophils Absolute Auto 4.3 x10*3/uL (2.0-8.3); Neutrophils Percent Auto 79.4 % (45-73); Platelet Count 147 X10*3/uL (160-400); Red Blood Count 3.68 X10*6/uL (4.20-5.50); Red Cell Distribution Width 16.7 % (11.0-16.0); White Blood Count 5.4 X10*3/uL (4.8-10.8)
[2023-05-12] MEDS: Albuterol/Iprat 2.5/0.5MG 3 ML AMPUL.NEB INHALE ×3 (08:12→19:42)
[2023-05-12 08:41] LABS: Alanine Aminotransferase 15 U/L (0-31); Albumin Level 2.6 g/dL (3.5-5.0); Alkaline Phosphatase 161 U/L (39-117); Anion Gap 11 (12-20); Aspartate Amino Transferase 39 U/L (5-31); Bilirubin Total 0.7 mg/dL (0.0-1.0); Blood Urea Nitrogen 6 mg/dL (9-16); Calcium 7.7 mg/dL (8.4-10.2); Chloride 88 mmol/L (96-108); Creatinine Clr Calc Pharmacy 88.3; Estimated Glomerular Filt Rate > 60; Glucose Random 139 mg/dL (60-115); Magnesium 1.7 mg/dL (1.6-2.6); Potassium 3.2 mmol/L (3.3-5.1); Sodium 139 mmol/L (135-145); Total Protein 5.9 g/dL (6.5-8.0)
[2023-05-12 08:55] LABS: Carbon Dioxide 43 mmol/L (22-29)
--- NOTE | 2023-05-12 08:57 | MHC.CM.PN ---
This CM attempted to meet with pt, pt was unable to arouse. CM will reattempt to meet with pt later on today.
[2023-05-12 09:58] LABS: ABG HCO3 55 mmol/L (22-26); ABG pCO2 72 mmHg (32-45); ABG pH 7.49 (7.35-7.45); ABG pO2 61 mmHg (83-108)
--- NOTE | 2023-05-12 10:55 | P.PNIM_ITS ---
Subjective Subjective Date of Service: 05/12/23 Interval History: Seen and evaluated difficult to arouse, sleepy ABG showed metabolic alkalosis No reported overnight events Review of Systems Review of Systems: Yes Unobtainable due to mental status Physical Exam 2 Vital Signs: Vital Signs: Last Vital Signs Temp 98.3 F 05/12/23 07:27 Pulse 102 H 05/12/23 08:16 Resp 16 05/12/23 08:16 BP 125/78 05/12/23 07:27 Pulse Ox 92 05/12/23 07:27 O2 Del Method Nasal Cannula 05/12/23 07:27 O2 Flow Rate 2 05/12/23 07:27 BMI result Body Mass Index 38.6 Const: Other: Constitutional : altered, sleepy, not in distress, obese Neck : Normal inspection, Supple Cardiovascular : RRR, no JVP, +1 lower extremity edema Respiratory : decreased bilateral air entry, no crackles, scattered expiratory wheezes Gastrointestinal: soft, lax, Normal bowel sounds, Non tender Skin : Warm, Dry Neurological : difficult to arouse, sleepy, wake up then go back to sleep , No focal deficit Objective Data Active Medications Acetaminophen (Acetaminophen 325 Mg Tablet) 650 mg PO Q6H PRN PRN Reason: Pain, Mild (Pain Scale 1-3) Albuterol Sulfate (Albuterol Sulfate 90 Mcg 8 Gm Inhaler) 2 puff INHALE Q6H PRN PRN Reason: for wheezing Albuterol/Ipratropium (Albuterol/Iprat 2.5/0.5mg 3 Ml Ampul.Neb) 3 ml INHALE RQ6H WHILE AWAKE [facility] Last Admin: 05/12/23 08:12 Dose: 3 ml Documented By: ROXNANE Albuterol/Ipratropium (Albuterol/Iprat 2.5/0.5mg 3 Ml Ampul.Neb) 3 ml INHALE Q4H PRN PRN Reason: shortness of breath or wheezing Aspirin (Aspirin Enteric Coated 81 Mg Tablet.Dr) 81 mg PO DAILY [facility] Dextrose (Dextrose 50 % 25 Gm/50 Ml Syringe) 25 gm IVPUSH Q30M PRN PRN Reason: BG < 70 Enoxaparin Sodium (Enoxaparin Sodium 40 Mg/0.4 Ml Syringe) 40 mg SUBCUT Q24H [facility] Last Admin: 05/11/23 17:34 Dose: 40 mg Documented By: EVERETTE Folic Acid (Folic Acid 1 Mg Tablet) 1 mg PO DAILY [facility] Furosemide (Furosemide 20 Mg Tablet) 20 mg PO DAILY [facility]; Protocol Last Admin: 05/12/23 00:29 Dose: Not Given Documented By: CASSI Non-Admin Reason: Patient Refused Gabapentin (Gabapentin 300 Mg Capsule) 900 mg PO TID [facility] Last Admin: 05/12/23 09:35 Dose: Not Given Documented By: LELA Non-Admin Reason: Physician Held Med Guaifenesin/Dextromethorphan (Guaifenesin Dm 200/20/10 Ml 10 Ml Syrup) 10 ml PO Q6H PRN PRN Reason: Cough Insulin Glargine (Insulin Glargine,Hum.Rec.Anlog 100 Unit/Ml 10 Ml Vial) 30 unit SUBCUT DAILY [facility] Last Admin: 05/12/23 09:47 Dose: Not Given Documented By: LELA Non-Admin Reason: pt NPO, drowsy, POC= 149 Insulin Glargine (Insulin Glargine,Hum.Rec.Anlog 100 Unit/Ml 10 Ml Vial) 40 unit SUBCUT BEDTIME [facility] Last Admin: 05/12/23 00:00 Dose: Not Given Documented By: CASSI Non-Admin Reason: Previously Administered Insulin Human Lispro (Insulin Lispro 100 Unit/Ml 3 Ml Vial) 0 unit SUBCUT QIDACHS [facility]; Protocol Last Admin: 05/12/23 08:59 Dose: Not Given Documented By: LELA Non-Admin Reason: poc= 149 Lisinopril (Lisinopril 5 Mg Tablet) 5 mg PO DAILY [facility]; Protocol Metformin HCl (Metformin Hcl 500 Mg Tablet) 500 mg PO BID [facility] Methadone HCl (Methadone Hcl 20 Mg/2 Ml Oral.Conc) 140 mg PO DAILY [facility] Mirtazapine (Mirtazapine 30 Mg Tablet) 30 mg PO BEDTIME [facility] Last Admin: 05/12/23 00:37 Dose: 30 mg Documented By: CASSI Nicotine (Nicotine 7 Mg Patch.Td24) 7 mg TRANSDERMA DAILY [facility] Omeprazole (Omeprazole 40 Mg Capsule.Dr) 40 mg PO DAILY@0630 [facility] Last Admin: 05/12/23 05:56 Dose: 40 mg Documented By: CASSI Ondansetron HCl (Ondansetron Hcl 4 Mg/2 Ml Vial) 4 mg IVPUSH Q8H PRN PRN Reason: Nausea and Vomiting Oxycodone HCl (Oxycodone Hcl Immed Release 5 Mg Tablet) 5 mg PO Q6H PRN PRN Reason: Pain, Severe (Pain Scale 7-10) Last Admin: 05/12/23 00:31 Dose: 5 mg Documented By: CASSI Pharmacy Consult (Consult Rx Etoh Phenob Im/Po) 1 each MISCELLANE ONCE PRN; Protocol PRN Reason: Consult order Phenobarbital (Phenobarbital 30 Mg Tablet) 30 mg PO BID [facility] Stop: 05/13/23 21:01 Phenobarbital (Phenobarbital 15 Mg Tablet) 15 mg PO BID [facility] Stop: 05/15/23 21:01 Phenobarbital (Phenobarbital 15 Mg Tablet) 15 mg PO DAILY [facility] Stop: 05/17/23 09:01 Polyethylene Glycol (Polyethylene Glycol 3350 17 Gm Powd.Pack) 17 gm PO DAILY PRN PRN Reason: Constipation Prazosin HCl (Prazosin Hcl 1 Mg Capsule) 3 mg PO BEDTIME [facility]; Protocol Last Admin: 05/12/23 00:36 Dose: 3 mg Documented By: CASSI Sodium Chloride (0.9 % Sodium Chloride Flush 3 Ml Syringe) 3 ml IVFLUSH QSHIFT [facility] Last Admin: 05/12/23 09:23 Dose: 3 ml Documented By: LELA Thiamine HCl (Thiamine Hcl 100 Mg Tablet) 100 mg PO DAILY [facility] Labs 05/12/23 07:56 05/12/23 07:56 Labs: Laboratory Results - last 24 hr 05/11/23 05/11/23 05/11/23 10:45 12:11 14:29 MCV MCH MCHC RDW Plt Count MPV Immature Gran % (Auto) Neut % (Auto) Lymph % (Auto) [place] % (Auto) Eos % (Auto) Baso % (Auto) Lymph # (Auto) [place] # (Auto) Eos # (Auto) Baso # (Auto) Abs Immat Gran (auto) Absolute Neuts (auto) Absolute Nucleated RBC Nucleated RBC % (auto) Hold Purple Top O2 Saturation ABG pH at Pt Temp ABG pCO2 at Pt Temp ABG pO2 at Pt Temp ABG HCO3 ABG Base Excess (Actual) Anion Gap Estim Creat Clear Calc Estimated GFR POC Glucose 433 H* 322 H Random Glucose Calcium Magnesium Total Bilirubin AST ALT Alkaline Phosphatase Total Protein Albumin Hold Red Top Urine Color Urine Appearance Urine pH Ur Specific [place] Urine Protein Urine Glucose (UA) Urine Ketones Urine Blood Urine Nitrite Ur Leukocyte Esterase Urine RBC Urine WBC Ur Squamous Epith Cells Other Crystals Urine Bacteria Hyaline Casts Urine Yeast Urine Opiates Screen Urine Fentanyl Screen Ur Barbiturates Screen Ur Phencyclidine Scrn Ur Amphetamines Screen U Benzodiazepines Scrn Urine Cocaine Screen U Marijuana (THC) Screen Ethyl Alcohol 16 05/11/23 05/11/23 05/11/23 14:34 16:08 17:39 MCV MCH MCHC RDW Plt Count MPV Immature Gran % (Auto) Neut % (Auto) Lymph % (Auto) [place] % (Auto) Eos % (Auto) Baso % (Auto) Lymph # (Auto) [place] # (Auto) Eos # (Auto) Baso # (Auto) Abs Immat Gran (auto) Absolute Neuts (auto) Absolute Nucleated RBC Nucleated RBC % (auto) Hold Purple Top O2 Saturation ABG pH at Pt Temp ABG pCO2 at Pt Temp ABG pO2 at Pt Temp ABG HCO3 ABG Base Excess (Actual) Anion Gap 17 Estim Creat Clear Calc 75.4 Estimated GFR > 60 POC Glucose 340 H Random Glucose 323 H Calcium 7.9 L Magnesium 1.2 L* Total Bilirubin AST ALT Alkaline Phosphatase Total Protein Albumin Hold Red Top Urine Color Dark Yellow Urine Appearance Cloudy Urine pH 5.5 Ur Specific [place] >= 1.030 H Urine Protein 30 (1+) H Urine Glucose (UA) >=1000 H Urine Ketones Negative Urine Blood Small (1+) H Urine Nitrite Negative Ur Leukocyte Esterase Small (1+) H Urine RBC >20 H Urine WBC 6-10 Ur Squamous Epith Cells 0-2 Other Crystals Present Urine Bacteria 4+ Hyaline Casts 3-5 Urine Yeast Present Urine Opiates Screen Not Detected Urine Fentanyl Screen Not Detected Ur Barbiturates Screen Not Detected Ur Phencyclidine Scrn Not Detected Ur Amphetamines Screen Not Detected U Benzodiazepines Scrn POSITIVE H Urine Cocaine Screen Not Detected U Marijuana (THC) Screen POSITIVE H Ethyl Alcohol 05/11/23 05/11/23 05/11/23 18:00 19:05 19:55 MCV MCH MCHC RDW Plt Count MPV Immature Gran % (Auto) Neut % (Auto) Lymph % (Auto) [place] % (Auto) Eos % (Auto) Baso % (Auto) Lymph # (Auto) [place] # (Auto) Eos # (Auto) Baso # (Auto) Abs Immat Gran (auto) Absolute Neuts (auto) Absolute Nucleated RBC Nucleated RBC % (auto) Hold Purple Top SEE NOTE O2 Saturation ABG pH at Pt Temp ABG pCO2 at Pt Temp ABG pO2 at Pt Temp ABG HCO3 ABG Base Excess (Actual) Anion Gap 16 Estim Creat Clear Calc 76.3 Estimated GFR > 60 POC Glucose 398 H* 398 H* Random Glucose 345 H Calcium 7.7 L Magnesium Total Bilirubin AST ALT Alkaline Phosphatase Total Protein Albumin Hold Red Top See Note Urine Color Urine Appearance Urine pH Ur Specific [place] Urine Protein Urine Glucose (UA) Urine Ketones Urine Blood Urine Nitrite Ur Leukocyte Esterase Urine RBC Urine WBC Ur Squamous Epith Cells Other Crystals Urine Bacteria Hyaline Casts Urine Yeast Urine Opiates Screen Urine Fentanyl Screen Ur Barbiturates Screen Ur Phencyclidine Scrn Ur Amphetamines Screen U Benzodiazepines Scrn Urine Cocaine Screen U Marijuana (THC) Screen Ethyl Alcohol 05/11/23 05/12/23 05/12/23 22:40 00:07 03:42 MCV MCH MCHC RDW Plt Count MPV Immature Gran % (Auto) Neut % (Auto) Lymph % (Auto) [place] % (Auto) Eos % (Auto) Baso % (Auto) Lymph # (Auto) [place] # (Auto) Eos # (Auto) Baso # (Auto) Abs Immat Gran (auto) Absolute Neuts (auto) Absolute Nucleated RBC Nucleated RBC % (auto) Hold Purple Top O2 Saturation ABG pH at Pt Temp ABG pCO2 at Pt Temp ABG pO2 at Pt Temp ABG HCO3 ABG Base Excess (Actual) Anion Gap Estim Creat Clear Calc Estimated GFR POC Glucose 272 H 242 H 168 H Random Glucose Calcium Magnesium Total Bilirubin AST ALT Alkaline Phosphatase Total Protein Albumin Hold Red Top Urine Color Urine Appearance Urine pH Ur Specific [place] Urine Protein Urine Glucose (UA) Urine Ketones Urine Blood Urine Nitrite Ur Leukocyte Esterase Urine RBC Urine WBC Ur Squamous Epith Cells Other Crystals Urine Bacteria Hyaline Casts Urine Yeast Urine Opiates Screen Urine Fentanyl Screen Ur Barbiturates Screen Ur Phencyclidine Scrn Ur Amphetamines Screen U Benzodiazepines Scrn Urine Cocaine Screen U Marijuana (THC) Screen Ethyl Alcohol 05/12/23 05/12/23 05/12/23 06:07 07:30 07:56 MCV 100.8 H MCH 30.2 MCHC 29.9 L RDW 16.7 H Plt Count 147 L D MPV 9.7 Immature Gran % (Auto) 0.6 H Neut % (Auto) 79.4 H Lymph % (Auto) 13.9 L [place] % (Auto) 4.4 Eos % (Auto) 1.3 Baso % (Auto) 0.4 Lymph # (Auto) 0.8 L [place] # (Auto) 0.2 Eos # (Auto) 0.1 Baso # (Auto) 0.0 Abs Immat Gran (auto) 0.03 Absolute Neuts (auto) 4.3 Absolute Nucleated RBC 0.000 Nucleated RBC % (auto) 0.0 Hold Purple Top O2 Saturation ABG pH at Pt Temp ABG pCO2 at Pt Temp ABG pO2 at Pt Temp ABG HCO3 ABG Base Excess (Actual) Anion Gap 11 L Estim Creat Clear Calc 88.3 Estimated GFR > 60 POC Glucose 160 H 149 H Random Glucose 139 H Calcium 7.7 L Magnesium 1.7 Total Bilirubin 0.7 AST 39 H ALT 15 Alkaline Phosphatase 161 H Total Protein 5.9 L Albumin 2.6 L Hold Red Top Urine Color Urine Appearance Urine pH Ur Specific [place] Urine Protein Urine Glucose (UA) Urine Ketones Urine Blood Urine Nitrite Ur Leukocyte Esterase Urine RBC Urine WBC Ur Squamous Epith Cells Other Crystals Urine Bacteria Hyaline Casts Urine Yeast Urine Opiates Screen Urine Fentanyl Screen Ur Barbiturates Screen Ur Phencyclidine Scrn Ur Amphetamines Screen U Benzodiazepines Scrn Urine Cocaine Screen U Marijuana (THC) Screen Ethyl Alcohol 05/12/23 09:52 MCV MCH MCHC RDW Plt Count MPV Immature Gran % (Auto) Neut % (Auto) Lymph % (Auto) [place] % (Auto) Eos % (Auto) Baso % (Auto) Lymph # (Auto) [place] # (Auto) Eos # (Auto) Baso # (Auto) Abs Immat Gran (auto) Absolute Neuts (auto) Absolute Nucleated RBC Nucleated RBC % (auto) Hold Purple Top O2 Saturation 86.0 ABG pH at Pt Temp 7.49 H ABG pCO2 at Pt Temp 72 H* ABG pO2 at Pt Temp 61 L ABG HCO3 55 H ABG Base Excess (Actual) 27.0 Anion Gap Estim Creat Clear Calc Estimated GFR POC Glucose Random Glucose Calcium Magnesium Total Bilirubin AST ALT Alkaline Phosphatase Total Protein Albumin Hold Red Top Urine Color Urine Appearance Urine pH Ur Specific [place] Urine Protein Urine Glucose (UA) Urine Ketones Urine Blood Urine Nitrite Ur Leukocyte Esterase Urine RBC Urine WBC Ur Squamous Epith Cells Other Crystals Urine Bacteria Hyaline Casts Urine Yeast Urine Opiates Screen Urine Fentanyl Screen Ur Barbiturates Screen Ur Phencyclidine Scrn Ur Amphetamines Screen U Benzodiazepines Scrn Urine Cocaine Screen U Marijuana (THC) Screen Ethyl Alcohol Microbiology Microbiology Results: Microbiology 05/11/23 17:39 Urine Culture - Preliminary Urine clean catch - Urine randall top Gram negative lloyd Assessment and Plan (1) Hypomagnesemia: Status: Acute (2) Methadone dependence: Status: Acute (3) Alcohol withdrawal: Status: Acute (4) Toxic metabolic encephalopathy: Status: Acute Plan a 57-year-old female with a past medical history of COPD ( 2 L O2 as needed at home),? aortic stenosis, congestive heart failure,? hypertension, polysubstance abuse (? on methadone), ? alcohol abuse, diabetes mellitus type 2, and anxiety? who presents to the emergency room with vomiting and chest tightness Toxic metabolic encephalopathy related to withdrawal medications, home meds No clear source of infection hold Gabapentin, Methadone for now correct metabolic alkalosis reorientation Hyperglycemia 2/2 uncontrolled diabetes No evidence of DKA on ABG DC IVF Lantus SSI Metabolic alkalosis related to LR usage give Diamox follow BMP acute Hypokalemia and hypomagnesemia to give extra Mg and correct K follow BMP Intractable vomiting 2/[address] and withdrawal CT negative Phenobarb protocol Zofran for nausea keep NPO Elevated Trop Type 2 in case of vomiting as no EKG changes repeated Trop remains flat Hx drug abuse Methadone DVT PPx Lovenox Needs overnight hospital stay for treatment of Alcohol withdrawal symptoms and correcting elecytrolytes and sugar levels Quality Stroke Does the patient have a stroke diagnosis?: No VTE Prior VTE?: No VTE Risk Level:: Medical - moderate - high VTE Device Contraindication: N/A - Device Ordered VTE Drug Contraindication: Treatment Not Indicated
[2023-05-12] MEDS: Nicotine 7 MG PATCH.TD24 TRANSDERMA (11:04)
[2023-05-12 11:49] LABS: Glucose, Whole Blood 157 mg/dL (60-115)
[2023-05-12] MEDS: acetaZOLAMIDE sodium 500 MG VIAL IVPUSH (11:54)
[2023-05-12 12:13] LABS: ABG Refer to POC result
[2023-05-12] MEDS: Potassium Chloride/H20 10 MEQ/100 ML PIGGYBACK 100 MEQ IV ×2 (12:50→14:27)
[2023-05-12] MEDS: Aspirin Enteric Coated 81 MG TABLET.DR PO (13:09)
[2023-05-12] MEDS: methADONE HCl 20 MG/2 ML ORAL.CONC 140 MG PO (13:09)
[2023-05-12] MEDS: Thiamine HCL 100 MG TABLET PO (13:09)
[2023-05-12] MEDS: Folic Acid 1 MG TABLET PO (13:09)
[2023-05-12] MEDS: lisinopriL 5 MG TABLET PO (13:09)
[2023-05-12] MEDS: PHENobarbitaL 30 MG TABLET PO ×2 (13:09→22:06)
--- NOTE | 2023-05-12 14:44 | MHC.CM.PN ---
Pt lives at home with her son, is active with [facility], has [facility] 21hrs/week, and goes to [facility] for methadone. Pt has home O2 through [employer], uses a cane and walker. Transport will be via [facility]. No HCP. PCP: Dr. Conde Po
[2023-05-12] MEDS: Magnesium Sulfate/H2O 2 GM/50 ML PIGGYBACK IV (15:57)
[2023-05-12] MEDS: Enoxaparin Sodium 40 MG/0.4 ML SYRINGE SUBCUT (15:59)
[2023-05-12 16:06] LABS: Glucose, Whole Blood 242 mg/dL (60-115)
[2023-05-12 20:09] LABS: Glucose, Whole Blood 275 mg/dL (60-115)
[2023-05-12] MEDS: Insulin Glargine,Hum.rec.anlog 100 UNIT/ML 10 ML VIAL 40 UNIT SUBCUT (22:06)
[2023-05-12] MEDS: metFORMIN HCl 500 MG TABLET PO (22:06)
[2023-05-13] VITALS (13 sets, daily range): BP systolic 131–177; BP diastolic 6–87; PULSE 89–116; RESP 16–20; TEMP 36.3–37.3; O2SAT 90–98
[2023-05-13 00:17] LABS: Glucose, Whole Blood 168 mg/dL (60-115)
[2023-05-13] MEDS: Magnesium Hydrox/Alum Hydrox 30 ML ORAL.SUSP PO (00:59)
[2023-05-13] MEDS: Acetaminophen 325 MG TABLET 650 MG PO ×2 (01:02→21:42)
[2023-05-13 03:32] LABS: Glucose, Whole Blood 111 mg/dL (60-115)
[2023-05-13] MEDS: oxyCODONE HCl Immed Release 5 MG TABLET PO (05:30)
[2023-05-13] MEDS: Omeprazole 40 MG CAPSULE.DR PO (05:30)
[2023-05-13 07:32] LABS: Hematocrit 37.9 % (37.0-47.0); Hemoglobin 11.2 g/dl (12.0-16.0); Mean Corpuscular HGB Conc 29.6 g/dl (31.0-35.0); Mean Corpuscular Hemoglobin 29.8 pg (27.0-33.0); Mean Corpuscular Volume 100.8 fL (80.0-98.0); Mean Platelet Volume 10.5 fL (9.4-12.3); Platelet Count 142 X10*3/uL (160-400); Red Blood Count 3.76 X10*6/uL (4.20-5.50); Red Cell Distribution Width 16.7 % (11.0-16.0); White Blood Count 4.8 X10*3/uL (4.8-10.8)
[2023-05-13 07:49] LABS: Anion Gap 10 (12-20); Blood Urea Nitrogen 8 mg/dL (9-16); Calcium 8.5 mg/dL (8.4-10.2); Carbon Dioxide 40 mmol/L (22-29); Chloride 92 mmol/L (96-108); Creatinine Clr Calc Pharmacy 78.3; Estimated Glomerular Filt Rate > 60; Glucose Random 104 mg/dL (60-115); Potassium 3.3 mmol/L (3.3-5.1); Sodium 139 mmol/L (135-145)
[2023-05-13] MEDS: Albuterol/Iprat 2.5/0.5MG 3 ML AMPUL.NEB INHALE ×3 (08:07→20:13)
[2023-05-13 08:13] LABS: Glucose, Whole Blood 121 mg/dL (60-115)
[2023-05-13] MEDS: ondansetron HCL 4 MG/2 ML VIAL IVPUSH ×2 (08:51→19:13)
[2023-05-13] MEDS: Aspirin Enteric Coated 81 MG TABLET.DR PO (08:51)
[2023-05-13] MEDS: Nicotine 7 MG PATCH.TD24 TRANSDERMA (08:51)
[2023-05-13] MEDS: Thiamine HCL 100 MG TABLET PO (08:51)
[2023-05-13] MEDS: PHENobarbitaL 30 MG TABLET PO ×2 (08:51→21:42)
[2023-05-13] MEDS: metFORMIN HCl 500 MG TABLET PO (08:52)
[2023-05-13] MEDS: Insulin Glargine,Hum.rec.anlog 100 UNIT/ML 10 ML VIAL 30 UNIT SUBCUT (08:52)
[2023-05-13] MEDS: Furosemide 20 MG TABLET PO (08:52)
[2023-05-13] MEDS: 0.9 % Sodium Chloride Flush 3 ML SYRINGE IVFLUSH ×2 (08:52→21:42)
[2023-05-13] MEDS: lisinopriL 5 MG TABLET PO (08:52)
[2023-05-13] MEDS: Folic Acid 1 MG TABLET PO (08:52)
[2023-05-13] MEDS: methADONE HCl 20 MG/2 ML ORAL.CONC 140 MG PO (08:57)
--- NOTE | 2023-05-13 09:42 | P.PNIM_ITS ---
Subjective Subjective Date of Service: 05/13/23 Interval History: Seen and evaluated more alert and interactive complaining of nausea and abdominal pain U.Cx growing E.Coli No other reported overnight events Review of Systems Review of Systems: Yes all other systems are reviewed and are negative Physical Exam 2 Vital Signs: Vital Signs: Last Vital Signs Temp 98.6 F 05/13/23 07:46 Pulse 116 H 05/13/23 08:09 Resp 20 05/13/23 08:09 BP 138/78 05/13/23 07:46 Pulse Ox 92 05/13/23 07:46 O2 Del Method Nasal Cannula 05/13/23 07:46 O2 Flow Rate 2 05/13/23 07:46 BMI result Body Mass Index 38.6 Const: Other: Constitutional : alert and interactive, in mild distress, obese Neck : Normal inspection, Supple Cardiovascular : RRR, no JVP, trace lower extremity edema Respiratory : decreased bilateral air entry, no crackles, scattered expiratory wheezes Gastrointestinal: soft, lax, Normal bowel sounds, Non tender Skin : Warm, Dry Neurological : alert, oriented to self and place, No focal deficit Objective Data Active Medications Acetaminophen (Acetaminophen 325 Mg Tablet) 650 mg PO Q6H PRN PRN Reason: Pain, Mild (Pain Scale 1-3) Last Admin: 05/13/23 01:02 Dose: 650 mg Documented By: WAYNE Al Hydroxide/Mg Hydroxide (Magnesium Hydrox/Alum Hydrox 30 Ml Oral.Susp) 30 ml PO Q6H PRN PRN Reason: Gas Last Admin: 05/13/23 00:59 Dose: 30 ml Documented By: WAYNE Albuterol Sulfate (Albuterol Sulfate 90 Mcg 8 Gm Inhaler) 2 puff INHALE Q6H PRN PRN Reason: for wheezing Albuterol/Ipratropium (Albuterol/Iprat 2.5/0.5mg 3 Ml Ampul.Neb) 3 ml INHALE RQ6H WHILE AWAKE [facility] Last Admin: 05/13/23 08:07 Dose: 3 ml Documented By: MICHAEL Albuterol/Ipratropium (Albuterol/Iprat 2.5/0.5mg 3 Ml Ampul.Neb) 3 ml INHALE Q4H PRN PRN Reason: shortness of breath or wheezing Aspirin (Aspirin Enteric Coated 81 Mg Tablet.Dr) 81 mg PO DAILY [facility] Last Admin: 05/13/23 08:51 Dose: 81 mg Documented By: LELA Dextrose (Dextrose 50 % 25 Gm/50 Ml Syringe) 25 gm IVPUSH Q30M PRN PRN Reason: BG < 70 Enoxaparin Sodium (Enoxaparin Sodium 40 Mg/0.4 Ml Syringe) 40 mg SUBCUT Q24H [facility] Last Admin: 05/12/23 15:59 Dose: 40 mg Documented By: LELA Folic Acid (Folic Acid 1 Mg Tablet) 1 mg PO DAILY [facility] Last Admin: 05/13/23 08:52 Dose: 1 mg Documented By: LELA Furosemide (Furosemide 20 Mg Tablet) 20 mg PO DAILY [facility]; Protocol Last Admin: 05/13/23 08:52 Dose: 20 mg Documented By: LELA Gabapentin (Gabapentin 300 Mg Capsule) 900 mg PO TID [facility] Last Admin: 05/12/23 09:35 Dose: Not Given Documented By: LELA Non-Admin Reason: Physician Held Med Guaifenesin/Dextromethorphan (Guaifenesin Dm 200/20/10 Ml 10 Ml Syrup) 10 ml PO Q6H PRN PRN Reason: Cough Sodium Chloride (Ns) 1,000 mls @ 150 mls/hr IVCONT .Q6H40M [facility]E Ceftriaxone Sodium 1 gm/ (Sodium Chloride) 50 mls @ 100 mls/hr IV Q24H [facility] Insulin Glargine (Insulin Glargine,Hum.Rec.Anlog 100 Unit/Ml 10 Ml Vial) 30 unit SUBCUT DAILY [facility] Last Admin: 05/13/23 08:52 Dose: 30 unit Documented By: LELA Insulin Glargine (Insulin Glargine,Hum.Rec.Anlog 100 Unit/Ml 10 Ml Vial) 40 unit SUBCUT BEDTIME [facility] Last Admin: 05/12/23 22:06 Dose: 40 unit Documented By: SHERRY Insulin Human Lispro (Insulin Lispro 100 Unit/Ml 3 Ml Vial) 0 unit SUBCUT QIDACHS [facility]; Protocol Last Admin: 05/13/23 08:46 Dose: Not Given Documented By: LELA Non-Admin Reason: poc 121 Lisinopril (Lisinopril 5 Mg Tablet) 5 mg PO DAILY [facility]; Protocol Last Admin: 05/13/23 08:52 Dose: 5 mg Documented By: LELA Methadone HCl (Methadone Hcl 20 Mg/2 Ml Oral.Conc) 140 mg PO DAILY [facility] Last Admin: 05/13/23 08:57 Dose: 140 mg Documented By: LELA Mirtazapine (Mirtazapine 30 Mg Tablet) 30 mg PO BEDTIME [facility] Last Admin: 05/12/23 22:06 Dose: 30 mg Documented By: SHERRY Morphine Sulfate (Morphine Sulfate 2 Mg/Ml Cartridge) 4 mg IVPUSH Q4H PRN; Protocol PRN Reason: Pain, Severe (Pain Scale 7-10) Nicotine (Nicotine 7 Mg Patch.Td24) 7 mg TRANSDERMA DAILY [facility] Last Admin: 05/13/23 08:51 Dose: 7 mg Documented By: LELA Omeprazole (Omeprazole 40 Mg Capsule.Dr) 40 mg PO DAILY@0630 [facility] Last Admin: 05/13/23 05:30 Dose: 40 mg Documented By: WAYNE Ondansetron HCl (Ondansetron Hcl 4 Mg/2 Ml Vial) 4 mg IVPUSH Q8H PRN PRN Reason: Nausea and Vomiting Last Admin: 05/13/23 08:51 Dose: 4 mg Documented By: LELA Pharmacy Consult (Consult Rx Etoh Phenob Im/Po) 1 each MISCELLANE ONCE PRN; Protocol PRN Reason: Consult order Phenobarbital (Phenobarbital 30 Mg Tablet) 30 mg PO BID [facility] Stop: 05/13/23 21:01 Last Admin: 05/13/23 08:51 Dose: 30 mg Documented By: LELA Phenobarbital (Phenobarbital 15 Mg Tablet) 15 mg PO BID [facility] Stop: 05/15/23 21:01 Phenobarbital (Phenobarbital 15 Mg Tablet) 15 mg PO DAILY [facility] Stop: 05/17/23 09:01 Polyethylene Glycol (Polyethylene Glycol 3350 17 Gm Powd.Pack) 17 gm PO DAILY PRN PRN Reason: Constipation Prazosin HCl (Prazosin Hcl 1 Mg Capsule) 3 mg PO BEDTIME [facility]; Protocol Last Admin: 05/12/23 22:06 Dose: 3 mg Documented By: SHERRY Sodium Chloride (0.9 % Sodium Chloride Flush 3 Ml Syringe) [facility] Last Admin: 05/13/23 08:52 Dose: 3 ml Documented By: LELA Thiamine HCl (Thiamine Hcl 100 Mg Tablet) 100 mg PO DAILY [facility] Last Admin: 05/13/23 08:51 Dose: 100 mg Documented By: LELA Labs 05/13/23 07:19 05/13/23 07:19 Labs: Laboratory Results - last 24 hr 05/12/23 05/12/23 05/12/23 09:52 11:04 16:00 MCV MCH MCHC RDW Plt Count MPV Absolute Nucleated RBC Nucleated RBC % (auto) O2 Saturation 86.0 ABG pH at Pt Temp 7.49 H ABG pCO2 at Pt Temp 72 H* ABG pO2 at Pt Temp 61 L ABG HCO3 55 H ABG Base Excess (Actual) 27.0 Anion Gap Estim Creat Clear Calc Estimated GFR POC Glucose 157 H 242 H Random Glucose Calcium 05/12/23 05/13/23 05/13/23 20:03 00:13 03:24 MCV MCH MCHC RDW Plt Count MPV Absolute Nucleated RBC Nucleated RBC % (auto) O2 Saturation ABG pH at Pt Temp ABG pCO2 at Pt Temp ABG pO2 at Pt Temp ABG HCO3 ABG Base Excess (Actual) Anion Gap Estim Creat Clear Calc Estimated GFR POC Glucose 275 H 168 H 111 Random Glucose Calcium 05/13/23 05/13/23 07:19 07:49 MCV 100.8 H MCH 29.8 MCHC 29.6 L RDW 16.7 H Plt Count 142 L MPV 10.5 Absolute Nucleated RBC 0.000 Nucleated RBC % (auto) 0.0 O2 Saturation ABG pH at Pt Temp ABG pCO2 at Pt Temp ABG pO2 at Pt Temp ABG HCO3 ABG Base Excess (Actual) Anion Gap 10 L Estim Creat Clear Calc 78.3 Estimated GFR > 60 POC Glucose 121 H Random Glucose 104 Calcium 8.5 D Microbiology Microbiology Results: Microbiology 05/11/23 17:39 Urine Culture - Final Urine clean catch - Urine randall top Escherichia coli Assessment and Plan (1) Toxic metabolic encephalopathy: Status: Acute (2) Hypomagnesemia: Status: Acute (3) Methadone dependence: Status: Acute (4) Alcohol withdrawal: Status: Acute (5) Acute hyperglycemia: Status: Acute (6) Acute dehydration: Status: Acute Plan a 57-year-old female with a past medical history of COPD ( 2 L O2 as needed at home),? aortic stenosis, congestive heart failure,? hypertension, polysubstance abuse (? on methadone), ? alcohol abuse, diabetes mellitus type 2, and anxiety? who presents to the emergency room with vomiting and chest tightness Toxic metabolic encephalopathy related to withdrawal medications, home meds Improving hold Gabapentin, restart Methadone correct metabolic alkalosis reorientation Hyperglycemia 2/2 uncontrolled diabetes Improved, better control Lantus bid SSI UTI Cx growing E.Coli IV Ceftriaxone Metabolic alkalosis improving give Diamox follow BMP acute Hypokalemia and hypomagnesemia to give extra Mg and correct K follow BMP Intractable vomiting 2/[address] and withdrawal CT negative Phenobarb protocol Zofran for nausea Tolerating diet on IVF Elevated Trop Type 2 in case of vomiting as no EKG changes repeated Trop remains flat Hx drug abuse Methadone DVT PPx Lovenox Needs overnight hospital stay for treatment of Alcohol withdrawal symptoms and correcting elecytrolytes and sugar levels Quality Stroke Does the patient have a stroke diagnosis?: No VTE Prior VTE?: No VTE Risk Level:: Medical - moderate - high VTE Device Contraindication: N/A - Device Ordered VTE Drug Contraindication: Treatment Not Indicated
[2023-05-13] MEDS: 0.9 % Sodium Chloride 1,000 ML 150 ML IVCONT ×3 (10:36→23:07)
[2023-05-13] MEDS: acetaZOLAMIDE sodium 500 MG VIAL IVPUSH (10:36)
[2023-05-13] MEDS: cefTRIAXone sodium 1 GM in 0.9 % Sodium Chloride 50 ML IV (10:36)
[2023-05-13] MEDS: Morphine Sulfate 2 MG/ML CARTRIDGE 4 MG IVPUSH ×3 (10:43→19:13)
[2023-05-13 12:14] LABS: Glucose, Whole Blood 83 mg/dL (60-115)
--- NOTE | 2023-05-13 12:32 | P.CDIM_ITS ---
PROVIDER RESPONSE TEXT: To clarify, the appropriate diagnosis supported by the clinical indicators: Diastolic: chronic QUERY TEXT: PHYSICIAN'S DOCUMENTATION REQUEST Date of Query: 05/13/2023 07:46 AM EST Patient Name: Keturah Sanon Admit Date: 05/11/2023 Dear Jessy Shaffer, A review of the medical record indicates additional documentation may be needed. Please review below and update the documentation accordingly. Clinical Indicators: Per H&P 05/11/23: PMH CHF Lasix 20 mg po daily BNP 157 CXR 05/11/23: Mild residual bibasilar opacities have substantially improved since exam of 03/15/2023. Possible trace left pleural effusion. Please provide further specificity regarding the most likely type and acuity of CHF you are evaluatin g, treating, or monitoring. Systolic Please specify if Acute, Chronic, or Acute on chronic, or Unable to determine Diastolic Please specify if Acute, Chronic, or Acute on chronic, or Unable to determine Combined Systolic/Diastolic Please specify if Acute, Chronic, or Acute on chronic, or Unable to determine Other (explain) Clinically unable to determine (explain) Thank you, Suzanne Berman RN Use of terms such as suspected, likely, concern for, or probable (associated with a specific diagnosi s that is being evaluated, monitored, or treated as if it exists) are acceptable and can be coded in the inpatient se tting, when documented at the time of discharge. Please use your independent medical judgment in providing your response. THIS QUERY IS PART OF THE PERMANENT MEDICAL RECORD
--- NOTE | 2023-05-13 15:15 | MHC.CM.PN ---
EMR reviewed and per MD rounds, pt is not medically cleared for D/C due to management of electrolytes and blood sugar. CM will continue to follow.
[2023-05-13 15:58] LABS: Glucose, Whole Blood 143 mg/dL (60-115)
[2023-05-13] MEDS: Enoxaparin Sodium 40 MG/0.4 ML SYRINGE SUBCUT (16:59)
[2023-05-13 20:25] LABS: Glucose, Whole Blood 108 mg/dL (60-115)
[2023-05-13] MEDS: Mirtazapine 30 MG TABLET PO (21:42)
[2023-05-13] MEDS: Prazosin HCL 1 MG CAPSULE 3 MG PO (21:42)
[2023-05-13] MEDS: PHENobarbitaL sodium 130 MG/ML VIAL IM (22:57)
[2023-05-13] MEDS: Insulin Glargine,Hum.rec.anlog 100 UNIT/ML 10 ML VIAL 10 UNIT SUBCUT (22:58)
[2023-05-13 23:57] LABS: Glucose, Whole Blood 106 mg/dL (60-115)
[2023-05-14] VITALS (7 sets, daily range): BP systolic 114–158; BP diastolic 65–89; PULSE 80–128; RESP 16–20; TEMP 36.1–36.7; O2SAT 93–98
[2023-05-14] MEDS: Morphine Sulfate 2 MG/ML CARTRIDGE 4 MG IVPUSH ×5 (00:17→20:13)
[2023-05-14] MEDS: ondansetron HCL 4 MG/2 ML VIAL IVPUSH ×3 (03:13→15:40)
[2023-05-14 03:45] LABS: Glucose, Whole Blood 127 mg/dL (60-115)
[2023-05-14] MEDS: Omeprazole 40 MG CAPSULE.DR PO (04:50)
[2023-05-14] MEDS: guaiFENesin DM 200/20/10 ML 10 ML SYRUP PO ×2 (04:54→20:13)
[2023-05-14] MEDS: 0.9 % Sodium Chloride 1,000 ML 150 ML IVCONT (05:00)
[2023-05-14 06:50] LABS: Anion Gap 12 (12-20); Blood Urea Nitrogen 8 mg/dL (9-16); Calcium 8.2 mg/dL (8.4-10.2); Carbon Dioxide 28 mmol/L (22-29); Chloride 101 mmol/L (96-108); Creatinine Clr Calc Pharmacy 87.1; Estimated Glomerular Filt Rate > 60; Glucose Random 90 mg/dL (60-115); Magnesium 1.5 mg/dL (1.6-2.6); Sodium 138 mmol/L (135-145)
[2023-05-14 07:29] LABS: Glucose, Whole Blood 80 mg/dL (60-115)
[2023-05-14] MEDS: Potassium Chloride Packet 20 MEQ PACKET 40 MEQ PO ×4 (08:44→15:43)
[2023-05-14] MEDS: Magnesium Sulfate/H2O 2 GM/50 ML PIGGYBACK IV (08:44)
[2023-05-14] MEDS: Nicotine 7 MG PATCH.TD24 TRANSDERMA (08:44)
[2023-05-14] MEDS: cefTRIAXone sodium 1 GM in 0.9 % Sodium Chloride 50 ML IV (08:44)
[2023-05-14] MEDS: methADONE HCl 20 MG/2 ML ORAL.CONC 140 MG PO (08:44)
[2023-05-14] MEDS: Furosemide 20 MG TABLET PO (08:45)
[2023-05-14] MEDS: Folic Acid 1 MG TABLET PO (08:45)
[2023-05-14] MEDS: PHENobarbitaL 15 MG TABLET PO ×2 (08:45→20:13)
[2023-05-14] MEDS: Aspirin Enteric Coated 81 MG TABLET.DR PO (08:45)
[2023-05-14] MEDS: lisinopriL 5 MG TABLET PO (08:45)
[2023-05-14] MEDS: Thiamine HCL 100 MG TABLET PO (08:45)
[2023-05-14] MEDS: 0.9 % Sodium Chloride Flush 3 ML SYRINGE IVFLUSH ×2 (08:45→20:17)
[2023-05-14] MEDS: PHENobarbitaL sodium 130 MG/ML VIAL IM ×2 (10:17→17:17)
[2023-05-14 11:06] LABS: Glucose, Whole Blood 96 mg/dL (60-115)
--- NOTE | 2023-05-14 12:45 | HO.PM.IMPN ---
Subjective Subjective Date of Service: 05/14/23 Interval History: Seen and evaluated more alert and interactive having more tremors and signs of withdrawal No other reported overnight events Review of Systems Review of Systems: Yes all other systems are reviewed and are negative Physical Exam Vital Signs: Vital Signs: Last Vital Signs Temp 97.7 F 05/14/23 11:13 Pulse 109 H 05/14/23 11:13 Resp 20 05/14/23 11:13 BP 143/78 H 05/14/23 11:13 Pulse Ox 93 05/14/23 11:13 O2 Del Method Nasal Cannula 05/14/23 11:13 O2 Flow Rate 2 05/14/23 11:13 BMI result Body Mass Index 38.6 Const: Other: Constitutional : alert and interactive, in mild distress, obese Neck : Normal inspection, Supple Cardiovascular : RRR, no JVP, trace lower extremity edema Respiratory : decreased bilateral air entry, no crackles, scattered expiratory wheezes Gastrointestinal: soft, lax, Normal bowel sounds, Non tender Skin : Warm, Dry Neurological : alert, oriented to self and place, No focal deficit Objective Data Active Medications Acetaminophen (Acetaminophen 325 Mg Tablet) 650 mg PO Q6H PRN PRN Reason: Pain, Mild (Pain Scale 1-3) Last Admin: 05/13/23 21:42 Dose: 650 mg Documented By: EVETTE Al Hydroxide/Mg Hydroxide (Magnesium Hydrox/Alum Hydrox 30 Ml Oral.Susp) 30 ml PO Q6H PRN PRN Reason: Gas Last Admin: 05/13/23 00:59 Dose: 30 ml Documented By: WAYNE Albuterol Sulfate (Albuterol Sulfate 90 Mcg 8 Gm Inhaler) 2 puff INHALE Q6H PRN PRN Reason: for wheezing Albuterol/Ipratropium (Albuterol/Iprat 2.5/0.5mg 3 Ml Ampul.Neb) 3 ml INHALE RQ6H WHILE AWAKE NAYE Last Admin: 05/14/23 07:54 Dose: Not Given Documented By: FABIO Non-Admin Reason: pt refused do to vomitting Albuterol/Ipratropium (Albuterol/Iprat 2.5/0.5mg 3 Ml Ampul.Neb) 3 ml INHALE Q4H PRN PRN Reason: shortness of breath or wheezing Aspirin (Aspirin Enteric Coated 81 Mg Tablet.Dr) 81 mg PO DAILY [facility] Last Admin: 05/14/23 08:45 Dose: 81 mg Documented By: ANTIONE Dextrose (Dextrose 50 % 25 Gm/50 Ml Syringe) 25 gm IVPUSH Q30M PRN PRN Reason: BG < 70 Enoxaparin Sodium (Enoxaparin Sodium 40 Mg/0.4 Ml Syringe) 40 mg SUBCUT Q24H [facility] Last Admin: 05/13/23 16:59 Dose: 40 mg Documented By: LELA Folic Acid (Folic Acid 1 Mg Tablet) 1 mg PO DAILY [facility] Last Admin: 05/14/23 08:45 Dose: 1 mg Documented By: ANTIONE Furosemide (Furosemide 20 Mg Tablet) 20 mg PO DAILY [facility]; Protocol Last Admin: 05/14/23 08:45 Dose: 20 mg Documented By: ANTIONE Gabapentin (Gabapentin 300 Mg Capsule) 900 mg PO TID [facility] Last Admin: 05/12/23 09:35 Dose: Not Given Documented By: LELA Non-Admin Reason: Physician Held Med Guaifenesin/Dextromethorphan (Guaifenesin Dm 200/20/10 Ml 10 Ml Syrup) 10 ml PO Q6H PRN PRN Reason: Cough Last Admin: 05/14/23 04:54 Dose: 10 ml Documented By: EVETTE Sodium Chloride (Ns) 1,000 mls @ 150 mls/hr IVCONT .Q6H40M [facility] Last Infusion: 05/14/23 11:44 Dose: Infused Documented By: ANTIONE Ceftriaxone Sodium 1 gm/ (Sodium Chloride) 50 mls @ 100 mls/hr IV Q24H [facility] Last Infusion: 05/14/23 09:18 Dose: Infused Documented By: ANTIONE Insulin Glargine (Insulin Glargine,Hum.Rec.Anlog 100 Unit/Ml 10 Ml Vial) 30 unit SUBCUT DAILY [facility] Last Admin: 05/14/23 08:45 Dose: Not Given Documented By: ANTIONE Non-Admin Reason: patient not eatting with low sugars Insulin Glargine (Insulin Glargine,Hum.Rec.Anlog 100 Unit/Ml 10 Ml Vial) 40 unit SUBCUT BEDTIME [facility] Last Admin: 05/13/23 22:58 Dose: Not Given Documented By: EVETTE Non-Admin Reason: No Insulin Coverage Insulin Human Lispro (Insulin Lispro 100 Unit/Ml 3 Ml Vial) 0 unit SUBCUT QIDACHS [facility]; Protocol Last Admin: 05/14/23 11:58 Dose: Not Given Documented By: ANTIONE Non-Admin Reason: No Insulin Coverage Lisinopril (Lisinopril 5 Mg Tablet) 5 mg PO DAILY [facility]; Protocol Last Admin: 05/14/23 08:45 Dose: 5 mg Documented By: ANTIONE Methadone HCl (Methadone Hcl 20 Mg/2 Ml Oral.Conc) 140 mg PO DAILY [facility] Last Admin: 05/14/23 08:44 Dose: 140 mg Documented By: ANTIONE Mirtazapine (Mirtazapine 30 Mg Tablet) 30 mg PO BEDTIME [facility] Last Admin: 05/13/23 21:42 Dose: 30 mg Documented By: EVETTE Morphine Sulfate (Morphine Sulfate 2 Mg/Ml Cartridge) 4 mg IVPUSH Q4H PRN; Protocol PRN Reason: Pain, Severe (Pain Scale 7-10) Last Admin: 05/14/23 08:49 Dose: 4 mg Documented By: ANTIONE Nicotine (Nicotine 7 Mg Patch.Td24) 7 mg TRANSDERMA DAILY [facility] Last Admin: 05/14/23 08:44 Dose: 7 mg Documented By: ANTIONE Omeprazole (Omeprazole 40 Mg Capsule.Dr) 40 mg PO DAILY@0630 [facility] Last Admin: 05/14/23 04:50 Dose: 40 mg Documented By: EVETTE Ondansetron HCl (Ondansetron Hcl 4 Mg/2 Ml Vial) 4 mg IVPUSH Q8H PRN PRN Reason: Nausea and Vomiting Last Admin: 05/14/23 03:13 Dose: 4 mg Documented By: EVETTE Pharmacy Consult (Consult Rx Etoh Phenob Im/Po) 1 each MISCELLANE ONCE PRN; Protocol PRN Reason: Consult order Phenobarbital (Phenobarbital 15 Mg Tablet) 15 mg PO BID [facility] Stop: 05/15/23 21:01 Last Admin: 05/14/23 08:45 Dose: 15 mg Documented By: ANTIONE Phenobarbital (Phenobarbital 15 Mg Tablet) 15 mg PO DAILY [facility] Stop: 05/17/23 09:01 Polyethylene Glycol (Polyethylene Glycol 3350 17 Gm Powd.Pack) 17 gm PO DAILY PRN PRN Reason: Constipation Prazosin HCl (Prazosin Hcl 1 Mg Capsule) 3 mg PO BEDTIME [facility]; Protocol Last Admin: 05/13/23 21:42 Dose: 3 mg Documented By: EVETTE Sodium Chloride (0.9 % Sodium Chloride Flush 3 Ml Syringe) 3 ml IVFLUSH QSHIFT [facility] Last Admin: 05/14/23 08:45 Dose: 3 ml Documented By: ANTIONE Thiamine HCl (Thiamine Hcl 100 Mg Tablet) 100 mg PO DAILY [facility] Last Admin: 05/14/23 08:45 Dose: 100 mg Documented By: ANTIONE Labs 05/13/23 07:19 05/14/23 06:29 Labs: Laboratory Results - last 24 hr 05/13/23 05/13/23 05/13/23 15:41 19:58 23:44 Anion Gap Estim Creat Clear Calc Estimated GFR POC Glucose 143 H 108 106 Random Glucose Calcium Magnesium 05/14/23 05/14/23 05/14/23 03:41 06:29 07:16 Anion Gap 12 Estim Creat Clear Calc 87.1 Estimated GFR > 60 POC Glucose 127 H 80 Random Glucose 90 Calcium 8.2 L Magnesium 1.5 L 05/14/23 10:52 Anion Gap Estim Creat Clear Calc Estimated GFR POC Glucose 96 Random Glucose Calcium Magnesium Assessment and Plan (1) Toxic metabolic encephalopathy: Status: Acute (2) Hypomagnesemia: Status: Acute (3) Alcohol withdrawal: Status: Acute (4) Acute dehydration: Status: Acute (5) Acute hyperglycemia: Status: Acute (6) Methadone dependence: Status: Acute Plan a 57-year-old female with a past medical history of COPD ( 2 L O2 as needed at home),? aortic stenosis, congestive heart failure,? hypertension, polysubstance abuse (? on methadone), ? alcohol abuse, diabetes mellitus type 2, and anxiety? who presents to the emergency room with vomiting and chest tightness Toxic metabolic encephalopathy related to withdrawal medications, home meds back to baseline restart low dose Gabapentin, continue Methadone resolved metabolic alkalosis reorientation Hyperglycemia 2/2 uncontrolled diabetes Improved, better control Lantus bid SSI UTI Cx growing E.Coli IV Ceftriaxone Metabolic alkalosis improving give Diamox follow BMP acute Hypokalemia and hypomagnesemia to give extra Mg and correct K follow BMP Intractable vomiting 2/[address] withdrawal CT negative Phenobarb protocol , give extra dose Zofran for nausea Tolerating diet on IVF Elevated Trop Type 2 in case of vomiting as no EKG changes repeated Trop remains flat Hx drug abuse Methadone DVT PPx Lovenox Needs overnight hospital stay for treatment of Alcohol withdrawal symptoms and correcting elecytrolytes and sugar levels Quality Stroke Does the patient have a stroke diagnosis?: No VTE Prior VTE?: No VTE Risk Level:: Medical - moderate - high VTE Device Contraindication: N/A - Device Ordered VTE Drug Contraindication: Treatment Not Indicated
[2023-05-14] MEDS: Albuterol/Iprat 2.5/0.5MG 3 ML AMPUL.NEB INHALE (14:59)
[2023-05-14] MEDS: 0.9 % Sodium Chloride 1,000 ML 100 ML IVCONT (16:41)
[2023-05-14] MEDS: Enoxaparin Sodium 40 MG/0.4 ML SYRINGE SUBCUT (16:41)
[2023-05-14] MEDS: Acetaminophen 325 MG TABLET 650 MG PO (16:41)
[2023-05-14 16:51] LABS: Glucose, Whole Blood 106 mg/dL (60-115)
[2023-05-14] MEDS: Prazosin HCL 1 MG CAPSULE 3 MG PO (20:13)
[2023-05-14] MEDS: Mirtazapine 30 MG TABLET PO (20:21)
[2023-05-14 20:41] LABS: Glucose, Whole Blood 112 mg/dL (60-115)
[2023-05-15] VITALS (7 sets, daily range): BP systolic 132–167; BP diastolic 65–94; PULSE 90–119; RESP 16–20; TEMP 36–36.8; O2SAT 95–98
[2023-05-15] MEDS: ondansetron HCL 4 MG/2 ML VIAL IVPUSH ×3 (00:11→20:12)
[2023-05-15] MEDS: Morphine Sulfate 2 MG/ML CARTRIDGE 4 MG IVPUSH ×3 (00:11→13:21)
[2023-05-15 00:15] LABS: Glucose, Whole Blood 92 mg/dL (60-115)
[2023-05-15] MEDS: 0.9 % Sodium Chloride 1,000 ML 100 ML IVCONT ×2 (01:16→08:07)
[2023-05-15] MEDS: PHENobarbitaL sodium 130 MG/ML VIAL IM ×2 (01:18→10:37)
[2023-05-15] MEDS: Omeprazole 40 MG CAPSULE.DR PO (04:18)
[2023-05-15] MEDS: Acetaminophen 325 MG TABLET 650 MG PO ×2 (05:41→10:37)
[2023-05-15 07:26] LABS: Glucose, Whole Blood 89 mg/dL (60-115)
[2023-05-15] MEDS: 0.9 % Sodium Chloride Flush 3 ML SYRINGE IVFLUSH ×2 (08:07→20:17)
[2023-05-15] MEDS: Folic Acid 1 MG TABLET PO (08:08)
[2023-05-15] MEDS: Nicotine 7 MG PATCH.TD24 TRANSDERMA (08:08)
[2023-05-15] MEDS: methADONE HCl 20 MG/2 ML ORAL.CONC 140 MG PO (08:08)
[2023-05-15] MEDS: Aspirin Enteric Coated 81 MG TABLET.DR PO (08:09)
[2023-05-15] MEDS: PHENobarbitaL 15 MG TABLET PO ×2 (08:09→20:14)
[2023-05-15] MEDS: cefTRIAXone sodium 1 GM in 0.9 % Sodium Chloride 50 ML IV (08:09)
[2023-05-15] MEDS: Furosemide 20 MG TABLET PO (08:09)
[2023-05-15] MEDS: lisinopriL 5 MG TABLET PO (08:09)
[2023-05-15] MEDS: Thiamine HCL 100 MG TABLET PO (08:09)
[2023-05-15 10:37] LABS: Alanine Aminotransferase 12 U/L (0-31); Albumin Level 3.1 g/dL (3.5-5.0); Alkaline Phosphatase 168 U/L (39-117); Anion Gap 15 (12-20); Aspartate Amino Transferase 36 U/L (5-31); Bilirubin Direct 0.4 mg/dL (0.0-0.5); Bilirubin Total 0.6 mg/dL (0.0-1.0); Blood Urea Nitrogen 7 mg/dL (9-16); Calcium 8.6 mg/dL (8.4-10.2); Carbon Dioxide 24 mmol/L (22-29); Chloride 102 mmol/L (96-108); Creatinine Clr Calc Pharmacy 78.3; Estimated Glomerular Filt Rate > 60; Glucose Random 110 mg/dL (60-115); Magnesium 1.5 mg/dL (1.6-2.6); Potassium 3.4 mmol/L (3.3-5.1); Sodium 138 mmol/L (135-145)
[2023-05-15] MEDS: Ondansetron ODT 8 MG TAB.RAPDIS TRANSLINGU (10:37)
[2023-05-15 11:04] LABS: Glucose, Whole Blood 134 mg/dL (60-115)
--- NOTE | 2023-05-15 11:14 | P.PNIM_ITS ---
Subjective Subjective Date of Service: 05/15/23 Interval History: Seen and evaluated alert and interactive, feels weak with no energy having nausea having tremors and signs of withdrawal No other reported overnight events Review of Systems Review of Systems: Yes all other systems are reviewed and are negative Physical Exam 2 Vital Signs: Vital Signs: Last Vital Signs Temp 97.1 F 05/15/23 11:06 Pulse 111 H 05/15/23 11:06 Resp 20 05/15/23 11:06 BP 155/83 H 05/15/23 11:06 Pulse Ox 95 05/15/23 11:06 O2 Del Method Nasal Cannula 05/15/23 11:06 O2 Flow Rate 2 05/15/23 11:06 BMI result Body Mass Index 38.6 Const: Other: Constitutional : alert and interactive, in mild distress, obese Neck : Normal inspection, Supple Cardiovascular : RRR, no JVP, trace lower extremity edema Respiratory : decreased bilateral air entry, no crackles, scattered expiratory wheezes Gastrointestinal: soft, lax, Normal bowel sounds, Non tender Skin : Warm, Dry Neurological : alert, oriented to self and place, No focal deficit, having tremors Objective Data Active Medications Acetaminophen (Acetaminophen 325 Mg Tablet) 650 mg PO Q6H PRN PRN Reason: Pain, Mild (Pain Scale 1-3) Last Admin: 05/15/23 10:37 Dose: 650 mg Documented By: ANTIONE Al Hydroxide/Mg Hydroxide (Magnesium Hydrox/Alum Hydrox 30 Ml Oral.Susp) 30 ml PO Q6H PRN PRN Reason: Gas Last Admin: 05/13/23 00:59 Dose: 30 ml Documented By: WAYNE Albuterol Sulfate (Albuterol Sulfate 90 Mcg 8 Gm Inhaler) 2 puff INHALE Q6H PRN PRN Reason: for wheezing Albuterol/Ipratropium (Albuterol/Iprat 2.5/0.5mg 3 Ml Ampul.Neb) 3 ml INHALE RQ6H WHILE AWAKE [facility] Last Admin: 05/15/23 08:53 Dose: Not Given Documented By: FABIO Non-Admin Reason: pt refused Albuterol/Ipratropium (Albuterol/Iprat 2.5/0.5mg 3 Ml Ampul.Neb) 3 ml INHALE Q4H PRN PRN Reason: shortness of breath or wheezing Aspirin (Aspirin Enteric Coated 81 Mg Tablet.Dr) 81 mg PO DAILY [facility] Last Admin: 05/15/23 08:09 Dose: 81 mg Documented By: ANTIONE Dextrose (Dextrose 50 % 25 Gm/50 Ml Syringe) 25 gm IVPUSH Q30M PRN PRN Reason: BG < 70 Enoxaparin Sodium (Enoxaparin Sodium 40 Mg/0.4 Ml Syringe) 40 mg SUBCUT Q24H [facility] Last Admin: 05/14/23 16:41 Dose: 40 mg Documented By: ANTIONE Folic Acid (Folic Acid 1 Mg Tablet) 1 mg PO DAILY [facility] Last Admin: 05/15/23 08:08 Dose: 1 mg Documented By: ANTIONE Furosemide (Furosemide 20 Mg Tablet) 20 mg PO DAILY [facility]; Protocol Last Admin: 05/15/23 08:09 Dose: 20 mg Documented By: ANTIONE Gabapentin (Gabapentin 300 Mg Capsule) 300 mg PO TID [facility] Guaifenesin/Dextromethorphan (Guaifenesin Dm 200/20/10 Ml 10 Ml Syrup) 10 ml PO Q6H PRN PRN Reason: Cough Last Admin: 05/14/23 20:13 Dose: 10 ml Documented By: EVETTE Ceftriaxone Sodium 1 gm/ (Sodium Chloride) 50 mls @ 100 mls/hr IV Q24H [facility] Last Infusion: 05/15/23 08:47 Dose: 0 mls/hr Documented By: ANTIONE Insulin Glargine (Insulin Glargine,Hum.Rec.Anlog 100 Unit/Ml 10 Ml Vial) 30 unit SUBCUT DAILY [facility] Last Admin: 05/15/23 07:27 Dose: Not Given Documented By: ANTIONE Non-Admin Reason: patient not eating Insulin Glargine (Insulin Glargine,Hum.Rec.Anlog 100 Unit/Ml 10 Ml Vial) 40 unit SUBCUT BEDTIME [facility] Last Admin: 05/14/23 20:56 Dose: Not Given Documented By: EVETTE Non-Admin Reason: no given BS 112 Insulin Human Lispro (Insulin Lispro 100 Unit/Ml 3 Ml Vial) 0 unit SUBCUT QIDACHS [facility]; Protocol Last Admin: 05/15/23 11:08 Dose: Not Given Documented By: ANTIONE Non-Admin Reason: No Insulin Coverage Lisinopril (Lisinopril 5 Mg Tablet) 5 mg PO DAILY [facility]; Protocol Last Admin: 05/15/23 08:09 Dose: 5 mg Documented By: ANTIONE Methadone HCl (Methadone Hcl 20 Mg/2 Ml Oral.Conc) 140 mg PO DAILY [facility] Last Admin: 05/15/23 08:08 Dose: 140 mg Documented By: ANTIONE Mirtazapine (Mirtazapine 30 Mg Tablet) 30 mg PO BEDTIME [facility] Last Admin: 05/14/23 20:21 Dose: 30 mg Documented By: EVETTE Morphine Sulfate (Morphine Sulfate 2 Mg/Ml Cartridge) 4 mg IVPUSH Q4H PRN; Protocol PRN Reason: Pain, Severe (Pain Scale 7-10) Last Admin: 05/15/23 04:19 Dose: 4 mg Nicotine (Nicotine 7 Mg Patch.Td24) 7 mg TRANSDERMA DAILY [facility] Last Admin: 05/15/23 08:08 Dose: 7 mg Documented By: ANTIONE Omeprazole (Omeprazole 40 Mg Capsule.Dr) 40 mg PO DAILY@0630 [facility] Last Admin: 05/15/23 04:18 Dose: 40 mg Documented By: EVETTE Ondansetron HCl (Ondansetron Hcl 4 Mg/2 Ml Vial) 4 mg IVPUSH Q8H PRN PRN Reason: Nausea and Vomiting Last Admin: 05/15/23 00:11 Dose: 4 mg Pharmacy Consult (Consult Rx Etoh Phenob Im/Po) 1 each MISCELLANE ONCE PRN; Protocol PRN Reason: Consult order Phenobarbital (Phenobarbital 15 Mg Tablet) 15 mg PO BID [facility] Stop: 05/15/23 21:01 Last Admin: 05/15/23 08:09 Dose: 15 mg Documented By: ANTIONE Phenobarbital (Phenobarbital 15 Mg Tablet) 15 mg PO DAILY [facility] Stop: 05/17/23 09:01 Phenobarbital Sodium (Phenobarbital Sodium 130 Mg/Ml Vial) 130 mg IM ONCE PRN PRN Reason: Alcohol Withdrawal Last Admin: 05/15/23 01:18 Dose: 130 mg Documented By: EVETTE Polyethylene Glycol (Polyethylene Glycol 3350 17 Gm Powd.Pack) 17 gm PO DAILY PRN PRN Reason: Constipation Prazosin HCl (Prazosin Hcl 1 Mg Capsule) 3 mg PO BEDTIME [facility]; Protocol Last Admin: 05/14/23 20:13 Dose: 3 mg Documented By: EVETTE Sodium Chloride (0.9 % Sodium Chloride Flush 3 Ml Syringe) 3 ml IVFLUSH QSHIFT [facility] Last Admin: 05/15/23 08:07 Dose: 3 ml Documented By: ANTIONE Thiamine HCl (Thiamine Hcl 100 Mg Tablet) 100 mg PO DAILY [facility] Last Admin: 05/15/23 08:09 Dose: 100 mg Documented By: ANTIONE Labs 05/13/23 07:19 05/15/23 10:12 Labs: Laboratory Results - last 24 hr 05/14/23 05/14/23 05/15/23 16:35 20:26 00:09 Anion Gap Estim Creat Clear Calc Estimated GFR POC Glucose 106 112 92 Random Glucose Calcium Magnesium Total Bilirubin Direct Bilirubin AST ALT Alkaline Phosphatase Total Protein Albumin 05/15/23 05/15/23 05/15/23 07:14 10:12 10:53 Anion Gap 15 Estim Creat Clear Calc 78.3 Estimated GFR > 60 POC Glucose 89 134 H Random Glucose 110 Calcium 8.6 Magnesium 1.5 L Total Bilirubin 0.6 Direct Bilirubin 0.4 AST 36 H ALT 12 Alkaline Phosphatase 168 H Total Protein 7.0 Albumin 3.1 L Assessment and Plan (1) Toxic metabolic encephalopathy: Status: Acute (2) Hypomagnesemia: Status: Acute (3) Alcohol withdrawal: Status: Acute Plan a 57-year-old female with a past medical history of COPD ( 2 L O2 as needed at home),? aortic stenosis, congestive heart failure,? hypertension, polysubstance abuse (? on methadone), ? alcohol abuse, diabetes mellitus type 2, and anxiety? who presents to the emergency room with vomiting and chest tightness Intractable vomiting 2/2 Alcohol abuse and withdrawal check US Gallbladder to r\o and GB disease Phenobarb protocol , give extra dose Zofran for nausea Tolerating diet on IVF Toxic metabolic encephalopathy related to withdrawal medications, home meds back to baseline restart low dose Gabapentin, continue Methadone reorientation Hyperglycemia 2/2 uncontrolled diabetes Improved, better control Lantus bid SSI UTI Cx growing E.Coli IV Ceftriaxone Metabolic alkalosis improving give Diamox follow BMP acute Hypokalemia and hypomagnesemia to give extra Mg follow BMP Elevated Trop Type 2 in case of vomiting as no EKG changes repeated Trop remains flat Hx drug abuse Methadone DVT PPx Lovenox Needs overnight hospital stay for treatment of Alcohol withdrawal symptoms and correcting elecytrolytes and sugar levels Quality Stroke Does the patient have a stroke diagnosis?: No VTE Prior VTE?: No VTE Risk Level:: Medical - moderate - high VTE Device Contraindication: N/A - Device Ordered VTE Drug Contraindication: Treatment Not Indicated
[2023-05-15] MEDS: Magnesium Oxide 400 MG TABLET PO ×2 (11:39→17:18)
[2023-05-15] MEDS: oxyCODONE HCl Immed Release 5 MG TABLET PO ×3 (11:40→20:14)
[2023-05-15] MEDS: guaiFENesin DM 200/20/10 ML 10 ML SYRUP PO (15:03)
[2023-05-15] MEDS: Albuterol/Iprat 2.5/0.5MG 3 ML AMPUL.NEB INHALE (16:24)
[2023-05-15 16:26] LABS: Glucose, Whole Blood 191 mg/dL (60-115)
[2023-05-15] MEDS: Insulin Lispro 100 UNIT/ML 3 ML VIAL SUBCUT (17:18)
[2023-05-15] MEDS: Enoxaparin Sodium 40 MG/0.4 ML SYRINGE SUBCUT (17:19)
[2023-05-15 19:24] LABS: Glucose, Whole Blood 151 mg/dL (60-115)
[2023-05-15] MEDS: Gabapentin 300 MG CAPSULE PO (20:14)
[2023-05-15] MEDS: Prazosin HCL 1 MG CAPSULE 3 MG PO (20:14)
[2023-05-15] MEDS: Mirtazapine 30 MG TABLET PO (20:14)
[2023-05-16] VITALS (9 sets, daily range): BP systolic 117–148; BP diastolic 61–73; PULSE 93–116; RESP 16–20; TEMP 36.1–37.2; O2SAT 95–100
[2023-05-16] MEDS: oxyCODONE HCl Immed Release 5 MG TABLET PO ×5 (00:33→20:12)
[2023-05-16 04:18] LABS: Glucose, Whole Blood 246 mg/dL (60-115)
[2023-05-16] MEDS: ondansetron HCL 4 MG/2 ML VIAL IVPUSH ×2 (05:26→15:01)
[2023-05-16] MEDS: Omeprazole 40 MG CAPSULE.DR PO ×2 (05:26→17:04)
[2023-05-16] MEDS: guaiFENesin DM 200/20/10 ML 10 ML SYRUP PO ×2 (05:31→15:00)
[2023-05-16 07:42] LABS: Glucose, Whole Blood 207 mg/dL (60-115)
[2023-05-16] MEDS: Nicotine 7 MG PATCH.TD24 TRANSDERMA (07:49)
[2023-05-16] MEDS: PHENobarbitaL 15 MG TABLET PO (07:49)
[2023-05-16] MEDS: lisinopriL 5 MG TABLET PO (07:50)
[2023-05-16] MEDS: Folic Acid 1 MG TABLET PO (07:50)
[2023-05-16] MEDS: Magnesium Oxide 400 MG TABLET PO ×2 (07:50→17:04)
[2023-05-16] MEDS: methADONE HCl 20 MG/2 ML ORAL.CONC 140 MG PO (07:50)
[2023-05-16] MEDS: Thiamine HCL 100 MG TABLET PO (07:50)
[2023-05-16] MEDS: Gabapentin 300 MG CAPSULE PO ×3 (07:50→20:12)
[2023-05-16] MEDS: Aspirin Enteric Coated 81 MG TABLET.DR PO (07:50)
[2023-05-16] MEDS: Insulin Lispro 100 UNIT/ML 3 ML VIAL SUBCUT ×4 (07:51→20:19)
[2023-05-16] MEDS: 0.9 % Sodium Chloride Flush 3 ML SYRINGE IVFLUSH ×2 (07:51→15:01)
[2023-05-16] MEDS: Insulin Glargine,Hum.rec.anlog 100 UNIT/ML 10 ML VIAL 30 UNIT SUBCUT (07:51)
[2023-05-16] MEDS: cefTRIAXone sodium 1 GM in 0.9 % Sodium Chloride 50 ML IV (07:52)
[2023-05-16] MEDS: Albuterol/Iprat 2.5/0.5MG 3 ML AMPUL.NEB INHALE ×3 (08:32→19:28)
[2023-05-16] MEDS: Lactated Ringers 1,000 ML 150 ML IVCONT ×2 (10:23→17:03)
--- NOTE | 2023-05-16 10:35 | P.PNIM_ITS ---
Subjective Subjective Date of Service: 05/16/23 Interval History: Seen and evaluated alert and interactive, feels better today, less nausea Tolerating sips of fluids and crackers less tremors and signs of withdrawal No other reported overnight events Review of Systems Review of Systems: Yes all other systems are reviewed and are negative Physical Exam 2 Vital Signs: Vital Signs: Last Vital Signs Temp 98.0 F 05/16/23 07:27 Pulse 99 05/16/23 08:35 Resp 16 05/16/23 08:35 BP 141/69 H 05/16/23 07:27 Pulse Ox 96 05/16/23 07:27 O2 Del Method Nasal Cannula 05/16/23 07:27 O2 Flow Rate 2 05/16/23 07:27 BMI result Body Mass Index 38.6 Const: Other: Constitutional : alert and interactive, obese Neck : Normal inspection, Supple Cardiovascular : RRR, no JVP, trace lower extremity edema Respiratory : decreased bilateral air entry, no crackles, scattered expiratory wheezes Gastrointestinal: soft, lax, Normal bowel sounds, Non tender Skin : Warm, Dry Neurological : alert, oriented to self and place, No focal deficit, minimal tremors Objective Data Active Medications Acetaminophen (Acetaminophen 325 Mg Tablet) 650 mg PO Q6H PRN PRN Reason: Pain, Mild (Pain Scale 1-3) Last Admin: 05/15/23 10:37 Dose: 650 mg Documented By: ANTIONE Al Hydroxide/Mg Hydroxide (Magnesium Hydrox/Alum Hydrox 30 Ml Oral.Susp) 30 ml PO Q6H PRN PRN Reason: Gas Last Admin: 05/13/23 00:59 Dose: 30 ml Documented By: WAYNE Albuterol Sulfate (Albuterol Sulfate 90 Mcg 8 Gm Inhaler) 2 puff INHALE Q6H PRN PRN Reason: for wheezing Albuterol/Ipratropium (Albuterol/Iprat 2.5/0.5mg 3 Ml Ampul.Neb) 3 ml INHALE RQ6H WHILE AWAKE NAYE Last Admin: 05/16/23 08:32 Dose: 3 ml Documented By: ROXANNE Albuterol/Ipratropium (Albuterol/Iprat 2.5/0.5mg 3 Ml Ampul.Neb) 3 ml INHALE Q4H PRN PRN Reason: shortness of breath or wheezing Aspirin (Aspirin Enteric Coated 81 Mg Tablet.Dr) 81 mg PO DAILY [facility] Last Admin: 05/16/23 07:50 Dose: 81 mg Documented By: LELA Dextrose (Dextrose 50 % 25 Gm/50 Ml Syringe) 25 gm IVPUSH Q30M PRN PRN Reason: BG < 70 Enoxaparin Sodium (Enoxaparin Sodium 40 Mg/0.4 Ml Syringe) 40 mg SUBCUT Q24H [facility] Last Admin: 05/15/23 17:19 Dose: 40 mg Documented By: VILMA Folic Acid (Folic Acid 1 Mg Tablet) 1 mg PO DAILY [facility] Last Admin: 05/16/23 07:50 Dose: 1 mg Documented By: LELA Furosemide (Furosemide 20 Mg Tablet) 20 mg PO DAILY [facility]; Protocol Last Admin: 05/15/23 08:09 Dose: 20 mg Documented By: ANTIONE Gabapentin (Gabapentin 300 Mg Capsule) 300 mg PO TID [facility] Last Admin: 05/16/23 07:50 Dose: 300 mg Documented By: LELA Guaifenesin/Dextromethorphan (Guaifenesin Dm 200/20/10 Ml 10 Ml Syrup) 10 ml PO Q6H PRN PRN Reason: Cough Last Admin: 05/16/23 05:31 Dose: 10 ml Documented By: BOBBY Ceftriaxone Sodium 1 gm/ (Sodium Chloride) 50 mls @ 100 mls/hr IV Q24H [facility] Last Infusion: 05/16/23 08:22 Dose: Infused Documented By: LELA Lactated Ringer's (Lr) 1,000 mls @ 150 mls/hr IVCONT .Q6H40M [facility] Last Admin: 05/16/23 10:23 Dose: 150 mls/hr Documented By: LELA Insulin Glargine (Insulin Glargine,Hum.Rec.Anlog 100 Unit/Ml 10 Ml Vial) 30 unit SUBCUT DAILY [facility] Last Admin: 05/16/23 07:51 Dose: 30 unit Documented By: LELA Insulin Glargine (Insulin Glargine,Hum.Rec.Anlog 100 Unit/Ml 10 Ml Vial) 40 unit SUBCUT BEDTIME [facility] Last Admin: 05/15/23 20:23 Dose: Not Given Documented By: BOBBY Non-Admin Reason: ppt. refused, not eating much and poc 151. Insulin Human Lispro (Insulin Lispro 100 Unit/Ml 3 Ml Vial) 0 unit SUBCUT QIDACHS [facility]; Protocol Last Admin: 05/16/23 07:51 Dose: 4 unit Documented By: LELA Lisinopril (Lisinopril 5 Mg Tablet) 5 mg PO DAILY [facility]; Protocol Last Admin: 05/16/23 07:50 Dose: 5 mg Documented By: LELA Magnesium Oxide (Magnesium Oxide 400 Mg Tablet) 400 mg PO BIDPC [facility] Last Admin: 05/16/23 07:50 Dose: 400 mg Documented By: LELA Methadone HCl (Methadone Hcl 20 Mg/2 Ml Oral.Conc) 140 mg PO DAILY [facility] Last Admin: 05/16/23 07:50 Dose: 140 mg Documented By: LELA Mirtazapine (Mirtazapine 30 Mg Tablet) 30 mg PO BEDTIME [facility] Last Admin: 05/15/23 20:14 Dose: 30 mg Documented By: BOBBY Nicotine (Nicotine 7 Mg Patch.Td24) 7 mg TRANSDERMA DAILY [facility] Last Admin: 05/16/23 07:49 Dose: 7 mg Documented By: LELA Omeprazole (Omeprazole 40 Mg Capsule.Dr) 40 mg PO BID@0630,1630 [facility] Ondansetron HCl (Ondansetron Hcl 4 Mg/2 Ml Vial) 4 mg IVPUSH Q8H PRN PRN Reason: Nausea and Vomiting Last Admin: 05/16/23 05:26 Dose: 4 mg Documented By: BOBBY Oxycodone HCl (Oxycodone Hcl Immed Release 5 Mg Tablet) 5 mg PO Q4H PRN PRN Reason: Pain, Severe (Pain Scale 7-10) Last Admin: 05/16/23 10:24 Dose: 5 mg Documented By: LELA Pharmacy Consult (Consult Rx Etoh Phenob Im/Po) 1 each MISCELLANE ONCE PRN; Protocol PRN Reason: Consult order Phenobarbital (Phenobarbital 15 Mg Tablet) 15 mg PO DAILY [facility] Stop: 05/17/23 09:01 Last Admin: 05/16/23 07:49 Dose: 15 mg Documented By: LELA Phenobarbital Sodium (Phenobarbital Sodium 130 Mg/Ml Vial) 130 mg IM ONCE PRN PRN Reason: Alcohol Withdrawal Last Admin: 05/15/23 01:18 Dose: 130 mg Documented By: EVETTE Polyethylene Glycol (Polyethylene Glycol 3350 17 Gm Powd.Pack) 17 gm PO DAILY PRN PRN Reason: Constipation Prazosin HCl (Prazosin Hcl 1 Mg Capsule) 3 mg PO BEDTIME [facility]; Protocol Last Admin: 05/15/23 20:14 Dose: 3 mg Documented By: BOBBY Sodium Chloride (0.9 % Sodium Chloride Flush 3 Ml Syringe) 3 ml IVFLUSH QSHIFT [facility] Last Admin: 05/16/23 07:51 Dose: 3 ml Documented By: LELA Thiamine HCl (Thiamine Hcl 100 Mg Tablet) 100 mg PO DAILY [facility] Last Admin: 05/16/23 07:50 Dose: 100 mg Documented By: LELA Labs 05/13/23 07:19 05/15/23 10:12 Labs: Laboratory Results - last 24 hr 05/15/23 05/15/23 05/15/23 10:12 10:53 16:21 Anion Gap 15 Estim Creat Clear Calc 78.3 Estimated GFR > 60 POC Glucose 134 H 191 H Random Glucose 110 Calcium 8.6 Magnesium 1.5 L Total Bilirubin 0.6 Direct Bilirubin 0.4 AST 36 H ALT 12 Alkaline Phosphatase 168 H Total Protein 7.0 Albumin 3.1 L 05/15/23 05/16/23 05/16/23 19:21 04:14 07:25 Anion Gap Estim Creat Clear Calc Estimated GFR POC Glucose 151 H 246 H 207 H Random Glucose Calcium Magnesium Total Bilirubin Direct Bilirubin AST ALT Alkaline Phosphatase Total Protein Albumin Assessment and Plan (1) Toxic metabolic encephalopathy: Status: Acute (2) Hypomagnesemia: Status: Acute (3) Alcohol withdrawal: Status: Acute (4) Methadone dependence: Status: Acute (5) Vomiting: Status: Acute Plan a 57-year-old female with a past medical history of COPD ( 2 L O2 as needed at home),? aortic stenosis, congestive heart failure,? hypertension, polysubstance abuse (? on methadone), ? alcohol abuse, diabetes mellitus type 2, and anxiety? who presents to the emergency room with vomiting and chest tightness Intractable vomiting 2/2 Alcohol abuse and withdrawal and likely acute alcoholic pancreatitis US negative for Gallbladder stones\disease Phenobarb protocol , give extra dose as needed Zofran for nausea Morphine DC, Oxycodone PRN for pain Advance diet as tolerated on IVF Toxic metabolic encephalopathy related to withdrawal medications, home meds back to baseline restart low dose Gabapentin, continue Methadone reorientation Hyperglycemia 2/2 uncontrolled diabetes Improved, better control Lantus bid SSI UTI Cx growing E.Coli IV Ceftriaxone started 05/13 Metabolic alkalosis improved with using Diamox follow BMP acute Hypokalemia and hypomagnesemia to give extra Mg follow BMP Elevated Trop Type 2 in case of vomiting as no EKG changes repeated Trop remains flat Hx drug abuse Methadone DVT PPx Lovenox Needs overnight hospital stay for treatment of Alcohol withdrawal symptoms and correcting elecytrolytes and sugar levels pending PT eval and clinical improvement Quality Stroke Does the patient have a stroke diagnosis?: No VTE Prior VTE?: No VTE Risk Level:: Medical - moderate - high VTE Device Contraindication: N/A - Device Ordered VTE Drug Contraindication: Treatment Not Indicated
[2023-05-16 11:37] LABS: Glucose, Whole Blood 180 mg/dL (60-115)
[2023-05-16 16:18] LABS: Glucose, Whole Blood 226 mg/dL (60-115)
[2023-05-16] MEDS: Enoxaparin Sodium 40 MG/0.4 ML SYRINGE SUBCUT (17:04)
[2023-05-16 20:05] LABS: Glucose, Whole Blood 292 mg/dL (60-115)
[2023-05-16] MEDS: Prazosin HCL 1 MG CAPSULE 3 MG PO (20:11)
[2023-05-16] MEDS: Mirtazapine 30 MG TABLET PO (20:12)
[2023-05-16] MEDS: Insulin Glargine,Hum.rec.anlog 100 UNIT/ML 10 ML VIAL 40 UNIT SUBCUT (20:19)
[2023-05-16 23:54] LABS: Glucose, Whole Blood 129 mg/dL (60-115)
[2023-05-17] MEDS: oxyCODONE HCl Immed Release 5 MG TABLET PO ×3 (00:14→09:48)
[2023-05-17] MEDS: ondansetron HCL 4 MG/2 ML VIAL IVPUSH ×2 (00:15→07:58)
[2023-05-17] MEDS: Lactated Ringers 1,000 ML 150 ML IVCONT (00:15)
[2023-05-17] MEDS: Magnesium Hydrox/Alum Hydrox 30 ML ORAL.SUSP PO (02:53)
[2023-05-17 04:00] VITALS: BP 134/58; PULSE 97; RESP 16; TEMP 36.4; O2SAT 95
[2023-05-17 04:28] LABS: Glucose, Whole Blood 143 mg/dL (60-115)
[2023-05-17] MEDS: Omeprazole 40 MG CAPSULE.DR PO (04:58)
[2023-05-17] MEDS: polyethylene glycoL 3350 17 GM POWD.PACK PO (05:03)
[2023-05-17 07:08] VITALS: BP 157/71; PULSE 114; RESP 20; TEMP 36.8; O2SAT 94
[2023-05-17 07:44] LABS: Glucose, Whole Blood 176 mg/dL (60-115)
[2023-05-17 07:50] LABS: Anion Gap 13 (12-20); Blood Urea Nitrogen 6 mg/dL (9-16); Calcium 8.7 mg/dL (8.4-10.2); Carbon Dioxide 29 mmol/L (22-29); Chloride 103 mmol/L (96-108); Creatinine Clr Calc Pharmacy 87.1; Estimated Glomerular Filt Rate > 60; Glucose Random 187 mg/dL (60-115); Magnesium 1.5 mg/dL (1.6-2.6); Potassium 3.6 mmol/L (3.3-5.1); Sodium 141 mmol/L (135-145)
[2023-05-17] MEDS: Thiamine HCL 100 MG TABLET PO (07:57)
[2023-05-17] MEDS: cefTRIAXone sodium 1 GM in 0.9 % Sodium Chloride 50 ML IV (07:57)
[2023-05-17] MEDS: Nicotine 7 MG PATCH.TD24 TRANSDERMA (07:57)
[2023-05-17] MEDS: lisinopriL 5 MG TABLET PO (07:58)
[2023-05-17] MEDS: Acetaminophen 325 MG TABLET 650 MG PO (07:58)
[2023-05-17] MEDS: PHENobarbitaL 15 MG TABLET PO (07:58)
[2023-05-17] MEDS: Magnesium Oxide 400 MG TABLET PO (07:58)
[2023-05-17] MEDS: Aspirin Enteric Coated 81 MG TABLET.DR PO (07:58)
[2023-05-17] MEDS: Folic Acid 1 MG TABLET PO (07:58)
[2023-05-17] MEDS: Gabapentin 300 MG CAPSULE PO (07:58)
[2023-05-17] MEDS: Insulin Lispro 100 UNIT/ML 3 ML VIAL SUBCUT (07:59)
[2023-05-17] MEDS: methADONE HCl 20 MG/2 ML ORAL.CONC 140 MG PO (07:59)
[2023-05-17] MEDS: 0.9 % Sodium Chloride Flush 3 ML SYRINGE IVFLUSH (07:59)
[2023-05-17] MEDS: Insulin Glargine,Hum.rec.anlog 100 UNIT/ML 10 ML VIAL 30 UNIT SUBCUT (08:00)
[2023-05-17] MEDS: Albuterol/Iprat 2.5/0.5MG 3 ML AMPUL.NEB INHALE (08:33)
[2023-05-17 08:34] VITALS: PULSE 105; RESP 20; O2SAT 99
--- NOTE | 2023-05-17 09:42 | PM.DS ---
DS: Providers Provider Date of Service: 05/17/23 Date of admission: 05/11/23 16:12 Primary care physician: Amaya Martinez MD Consults: 05/13/23 15:18 Consult to Wound Care Routine Reason for consultation: Reddened kosta area/ buttock/ MASD Has provider been notified: Yes 05/17/23 09:41 Addiction Medicine Routine Consulting Provider: Addiction Covering Reason for consultation: Pending discharge, Alcohol abuse and withdrawal DS: Diagnosis Discharge Diagnosis (1) Toxic metabolic encephalopathy: Status: Resolved (2) Hypomagnesemia: Status: Resolved (3) Alcohol withdrawal: Status: Resolved (4) Methadone dependence: Status: Inactive (5) Vomiting: Status: Resolved (6) Acute hyperglycemia: Status: Resolved (7) Acute dehydration: Status: Resolved (8) Acute hypokalemia: Status: Resolved DS: Summary Hospital Course Hospital Course: Admission note HPI a 57-year-old female with a past medical history of COPD ( 2 L O2 as needed at home),? aortic stenosis, congestive heart failure,? hypertension, polysubstance abuse (? on methadone), ? alcohol abuse, diabetes mellitus type 2, and anxiety? who presents to the emergency room with vomiting and chest tightness. The patient has reported right sided chest pain associated with the cough and ambulation. denies any fever, chills, palpitations, SOB, diarrhea or urinary symptoms. denies any bleeding. Noticed her blood sugar was running high up to 700 in ED with anion gap. responded to IV fluids and Insulin. admitted for further work up and treatment. Hospital course # Intractable vomiting secondary to Alcohol abuse and withdrawal and likely acute alcoholic pancreatitis given elevated Lipase on admission that was treated with IV fluids, pain medications, Zofran and Phenobarbital protocol with good response over the course of hospital stay. US negative for Gallbladder disease. Advanced diet as tolerated. # Toxic metabolic encephalopathy related to withdrawal medications, home meds Improved back to baseline during hospital stay. Kept on low dose Gabapentin while she was on PHenobarbital. continued Methadone. # UTI Urine Cx grew E.Coli. Finished 5 days of IV Ceftriaxone. # Metabolic alkalosis improved with using Diamox # acute Hypokalemia and hypomagnesemia Received replacement with good response. To be discharged on Magnesium replacement. Advance your diet gradually at home We advise you total abstinence from Alcohol Take Magnesium supplement Zofran as needed for nausea Time Attestation Discharge coordination time: Greater than 30 minutes Quality: Safe Use of Opioids Does Pt have an Active Cancer Diagnosis on the Problem List?: No Quality: Stroke Does the patient have a stroke diagnosis?: No Physical Exam Vital Signs: Vital Signs: Last Vital Signs Temp 98.2 F 05/17/23 07:08 Pulse 105 H 05/17/23 08:34 Resp 20 05/17/23 08:34 BP 157/71 H 05/17/23 07:08 Pulse Ox 94 05/17/23 07:08 O2 Del Method Nasal Cannula 05/17/23 07:08 O2 Flow Rate 2 05/17/23 07:08 BMI result Body Mass Index 38.6 Const: Other: Constitutional : alert and interactive, obese Neck : Normal inspection, Supple Cardiovascular : RRR, no JVP, trace lower extremity edema Respiratory : fair bilateral air entry, no crackles, no wheezes Gastrointestinal: soft, lax, Normal bowel sounds, Non tender Skin : Warm, Dry Neurological : alert, oriented to self and place, No focal deficit DS: Data Data Completed and Pending Completed studies during hospitalization [Text1]: Procedures Assistance with Respiratory Ventilation, Less than 24 Consecutive Hours, Continuous Positive Airway Pressure (03/15/23) Detoxification Services for Substance Abuse Treatment (03/15/23) Labs on day of discharge: Laboratory Results - last 24 hr 05/16/23 05/16/23 05/16/23 11:07 16:09 19:22 Hold Purple Top Sodium Potassium Chloride Carbon Dioxide Anion Gap BUN Creatinine Estim Creat Clear Calc Estimated GFR POC Glucose 180 H 226 H 292 H Random Glucose Calcium Magnesium 05/16/23 05/17/23 05/17/23 23:51 04:24 07:13 Hold Purple Top SEE NOTE Sodium 141 Potassium 3.6 Chloride 103 Carbon Dioxide 29 Anion Gap 13 BUN 6 L Creatinine 0.71 Estim Creat Clear Calc 87.1 Estimated GFR > 60 POC Glucose 129 H 143 H Random Glucose 187 H Calcium 8.7 Magnesium 1.5 L 05/17/23 07:40 Hold Purple Top Sodium Potassium Chloride Carbon Dioxide Anion Gap BUN Creatinine Estim Creat Clear Calc Estimated GFR POC Glucose 176 H Random Glucose Calcium Magnesium Imaging Chest x-ray: Radiologist's impression: ITS Impressions Chest X-Ray 05/11/23 10:25 IMPRESSION: 1. Mild residual bibasilar opacities have substantially improved since exam of 03/15/2023. Possible trace left pleural effusion. 2. The chin obscures the lung apices. If there is concern for pneumothorax or other apical pathology, then repeat view for better visualization of the apices is recommended. Abdomen Ultrasound 05/15/23 11:20 IMPRESSION: Technically limited evaluation. Hepatic steatosis with mildly heterogeneous hepatic parenchymal echotexture. No evidence of cholelithiasis. No sonographic evidence of acute cholecystitis. However reportedly the patient was tender while scanning over the gallbladder. Recommend clinical correlation and clinical follow-up as appropriate. No biliary ductal dilatation. Discharge Plan Discharge Anticipated Discharge Date/Time: 05/17/23 09:25 Patient Disposition: Home Health Service Discharge Diagnosis: Alcohol withdrawal Electrolytes imbalance Referrals: Carlie Jorge [Outside] - 1 Week Po,Amaya Fontaine MD [Primary Care Provider] - 1 Week Discharge Medications: New magnesium oxide 400 mg (241.3 mg magnesium) Tablet 400 mg PO DAILY@0730 Qty: 30 0RF ondansetron 4 mg tablet,disintegrating 4 mg PO Q8H PRN (Reason: nausea and vomiting) Qty: 20 0RF Continued (DME) cane Device See Rx Instructions .Route Qty: 1 0RF Rx Instructions: As directed (DME) pen needle, diabetic [BD Ultra-Fine Micro Pen Needle] 32 gauge x 1/4 needle See Rx Instructions .Route Qty: 100 8RF Rx Instructions: test 4 times per day (DME) insulin syringe-needle U-100 [BD Insulin Syringe Ultra-Fine] 1 mL 31 gauge x 5/16 syringe See Rx Instructions .Route Qty: 100 2RF Rx Instructions: As directed 4 times per day mirtazapine 30 mg tablet 30 mg PO BEDTIME 30 Days Qty: 30 5RF (DME) FreeStyle Lite Strips Strip Qty: 100 12RF Rx Instructions: Test four times a day or as directed. aspirin 81 mg tablet,delayed release (DR/EC) 81 mg PO DAILY Qty: 90 3RF gabapentin 300 mg capsule 900 mg PO TID 30 Days Qty: 270 7RF prazosin 1 mg capsule 3 mg PO BEDTIME 30 Days Qty: 90 3RF Protocol: Hold for SBP< HOLD for SBP < : 90 insulin lispro [Humalog U-100 Insulin] 100 unit/mL solution 10 unit subcut TIDAC Qty: 10 0RF methadone [Methadone Intensol] 10 mg/mL Concentrate 140 mg PO DAILY (DME) pulse oximeter See Rx Instructions Rx Instructions: As directed nicotine 7 mg/24 hr Patch 24 Hour 7 mg transdermal DAILY Qty: 30 0RF (DME) blood-glucose meter [FreeStyle Lite Meter] Kit Qty: 1 0RF Rx Instructions: As Directed omeprazole 40 mg capsule,delayed release(DR/EC) 40 mg PO DAILY@0630 furosemide 20 mg tablet 20 mg PO QAM Qty: 90 0RF polyethylene glycol 3350 17 gram powder in packet 17 g PO DAILY PRN (Reason: Constipation) docusate sodium [Colace] 100 mg capsule 100 mg PO BID PRN (Reason: Constipation) (DME) Oxygen Home Use Kit See Rx Instructions .ROUTE .MEDSUPPLY Qty: 1 12RF Rx Instructions: 2L nasal cannula continuous ipratropium-albuterol 0.5 mg-3 mg(2.5 mg base)/3 mL solution for nebulization 3 ml inhalation Q4H PRN (Reason: shortness of breath or wheezing) (DME) Wings Choice Plus Adult Briefs Misc See Rx Instructions .Route Qty: 60 0RF Rx Instructions: As directed metformin 500 mg tablet 500 mg PO BID Qty: 180 8RF lisinopril 5 mg tablet 5 mg PO DAILY Qty: 30 4RF fluticasone propion-salmeterol [Advair Diskus] 250-50 mcg/dose blister with device 1 inh inhalation BID Qty: 60 11RF No Action albuterol sulfate [Ventolin HFA] 90 mcg/actuation HFA aerosol inhaler 2 puff inhalation Q6H PRN (Reason: for wheezing) Qty: 8.5 0RF folic acid 1 mg tablet 1 mg PO DAILY Qty: 30 0RF quetiapine 25 mg tablet 12.5 mg PO Q4H PRN (Reason: anxiety) 30 Days Qty: 30 6RF thiamine mononitrate (vit B1) 100 mg tablet 100 mg PO DAILY Qty: 30 0RF insulin glargine [Lantus Solostar U-100 Insulin] 100 unit/mL (3 mL) insulin pen 40 unit SUBCUT BEDTIME Qty: 15 0RF (DME) lancets [FreeStyle Lancets] 28 gauge misc Qty: 100 0RF Rx Instructions: Test four times a day or as directed. Discharge Orders: Discharge Order (Routine); Ordered 05/17/23 Ordered By: Jessy Shaffer Diet: Advance to usual diet Activity on Discharge: As tolerated Stand Alone Forms: Patient Portal Discharge page, Community Support Activity Restrictions/Additional Instructions: [facility] A member of [email or web address], [address] [address] [employer] The above patient last received _140 mg Methadone on (Date)____05/17/2023 at (Time)__0800___ RN Signature: Date: Please complete this last dose letter on the day of discharge. Secure it in an envelope and sign over the seal. The patient must provide this sealed document upon return to their [facility] Treatment ProgramTopical Wound Care Recommendations: 1. Monitor for incontinence and moisture control, use barrier creams when needed for prevention and treatment. 2. Maintain blood glucose levels per Providers orders. 3. Bilateral Breast Skin Folds and Perineal area - Cleanse with PH balance wipes, pat dry with soft cloth.? Apply antifungal power to assist with moisture management.? Be sure to dust of excess powder to prevent caking on skin and in folds. Apply twice daily for 10-14 days past clinical clearing. Follow with barrier cream to protect and sooth irritated tissue. Limit brief use to only when out of bed and change immediately once soiled. Care Plan Goals: Read below Health Concerns: Read below Plan of Treatment: Read below Assessment: You were treated for alcohol withdrawal, UTI and electrolytes imbalance with IV fluids, Phenobarbital, antibiotics and electrolytes replacement with good response over the course of hospital stay. Advance your diet gradually at home We advise you total abstinence from Alcohol Take Magnesium supplement Zofran as needed for nausea Discharge Date/Time: 05/17/23 14:05
[2023-05-17] MEDS: guaiFENesin DM 200/20/10 ML 10 ML SYRUP PO (09:48)
--- NOTE | 2023-05-17 09:55 | MHC.CM.PN ---
Patient has been medically cleared for dc to home today, with services. Patient is active with Carlie MEZA, who has been made aware of today's dc.
--- NOTE | 2023-05-17 11:26 | HO.WOUND ---
Wound Consult: Initial 57yr old female admitted to [facility] on? 05/11/23 16:12- See progress notes and H&P for detailed history. Wound consult placed for Buttock and groin assessment. Pt agreeable to assessment and photo documentation. The pt reports she is incontinent at baseline and wears a breif at home - she denies barrier cream use and denies history of fungal dermatitis. Of importance pt has diabetes and incontinence putting her at risk for Fungal dermatitis and MASD. Buttocks assessed no pressure injury noted - Mild MASD noted. [place] intact blanchable tissue with maceration noted along the gluteal fold - barrier cream applied. The perineal and bilateral breast folds were noted for MASD and Fungal dermatitis. Tissue Red moist blanchable intact with mirrored advancing edges and satellite lesions noted. Pt reports itching and yeast odor detected. Pt educated on keeping skin folds clean and dry and antifungal application and barrier cream application. Pt demonstrates understanding. Discussed brief use with pt and for use after discharge only - to only use when up and ambulating and to change once soiled. Educated chronic moisture pts her skin at risk for further skin injury. Recommendations: 1. Turn and Reposition every 2 hours and as needed for patient comfort. 2. Off Load all bony prominences with use of pillows and heel boots if needed.? Apply Preventative foams where needed. ? 3. Monitor for incontinence and moisture control, use barrier creams when needed for prevention and treatment. 4. Provide adequate and supplemental nutrition. 5. Order or Continue low air loss mattress. 6. Maintain blood glucose levels per Providers orders. 7. Bilateral Breast Skin Folds and Perineal area - Cleanse with PH balance wipes, pat dry with soft cloth.? Apply antifungal power to assist with moisture management.? Be sure to dust of excess powder to prevent caking on skin and in folds. Apply per provider orders. Apply twice daily for 10-14 days past clinical clearing. Follow with barrier cream to protect and sooth irritated tissue. Re-consult wound care Nurse for wound deterioration or wound changes
--- NOTE | 2023-05-17 11:38 | MHC.RECOVRN ---
Met with pt in 454 after consult placed to Addiction Medicine for alcohol use and withdrawal. Per ED triage note, pt had been BIBA from home d/t nonradiating intermittent chest pain/sob x 3 days. also c/o n/v/headache/lightheadedness. c/p worsens w/ inspiration. no medications administered via ems. POC exceeds 600mg/dL in triage. Upon evaluation, pt admitted for toxic metabolic encephalopathy, alcohol withdrawal, hypomagnesemia, and vomiting. Pt sitting in bed, awake, alert, easily engages in conversation. Preparing for discharge today. Pt reports being stable on methadone for years. Had used Percocet in the past, denies cravings, denies difficulty with recovery from opioids. Pt reports alcohol use, 10 nips Fireball daily x 9 months. Pt reports recovery from alcohol x 21 years up until mother . Pts goal is to abstain from alcohol. Pt has utilized AA in the past with positive effect, discussed returning to AA. Pt would love to however, has difficulty getting out of the house. Discussed virtual meetings, pt reports her son is tech savvy and will be able to help her navigate that. Discussed CAROLYN/campral, pt encouraged to discuss with provider at [facility] if interested. 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 Pt provided with written resources as well as t/w contact information if needed. Pt denies questions or concerns for t/w. assistant tennis coach referral placed.
[2023-05-17 11:40] VITALS: BP 130/66; PULSE 103; RESP 18; TEMP 36.6; O2SAT 97
[2023-05-17 11:49] LABS: Glucose, Whole Blood 65 mg/dL (60-115)
--- NOTE | 2023-05-17 12:51 | MHC.CM.PN ---
Patient will transport home today at 2:15 PM, via [facility] Shuttle.
== END 2023-05-17 14:05 | disposition home health service (06) | DRG 282 ==
LOC: HO.ED 15:30 → HO.EDOVER 16:20 → HO.IMC 20:46
PROVIDERS: Physician Assistant Medical; Admitting Provider Student in an Organized Health Care Education/Training Program; Emergency Provider Emergency Medicine Emergency Medical Services; PCP Internal Medicine; Visit Provider Student in an Organized Health Care Education/Training Program
DX: K85.20 Alcohol induced acute pancreatitis without necrosis or infection (principal); E87.3 Alkalosis; I50.32 Chronic diastolic (congestive) heart failure; E83.42 Hypomagnesemia; I11.0 Hypertensive heart disease with heart failure; E11.65 Type 2 diabetes mellitus with hyperglycemia; E78.5 Hyperlipidemia, unspecified; B96.20 Unspecified Escherichia coli [E. coli] as the cause of diseases classified elsewhere; E86.0 Dehydration; Z99.81 Dependence on supplemental oxygen; F11.20 Opioid dependence, uncomplicated; F17.210 Nicotine dependence, cigarettes, uncomplicated; Y90.0 Blood alcohol level of less than 20 mg/100 ml; J44.9 Chronic obstructive pulmonary disease, unspecified; F10.139 Alcohol abuse with withdrawal, unspecified; E87.6 Hypokalemia; Z71.6 Tobacco abuse counseling; Z79.4 Long term (current) use of insulin; Z79.82 Long term (current) use of aspirin; Z79.84 Long term (current) use of oral hypoglycemic drugs; Z79.899 Other long term (current) drug therapy
CPT/HCPCS: 36415; 36600; 71045; 76705; 80048; 80053; 80076; 80307; 81001; 82010; 82140; 82803; 82947; 83690; 83735; 83880; 84484; 85025; 85027; 87086; 87088; 87186; 93005; 94640; 97161; 99285; J0696; J1120; J1650; J1885; J2270; J2405; J2550; J2560; J3475; J3480; J7120

== ENCOUNTER → 2023-05-11 10:16 | Outpatient (BNV) | payer OTHER, SELFPAY | PROVIDERS: Admitting Provider Student in an Organized Health Care Education/Training Program; Emergency Provider Emergency Medicine Emergency Medical Services; PCP Internal Medicine; Visit Provider Internal Medicine | DX: R00.0 Tachycardia, unspecified (principal); R94.31 Abnormal electrocardiogram [ECG] [EKG] | CPT/HCPCS: 93010 ==

== ENCOUNTER → 2023-05-11 16:12 | Outpatient (BNV) | payer OTHER, SELFPAY | PROVIDERS: Admitting Provider Student in an Organized Health Care Education/Training Program; Emergency Provider Emergency Medicine Emergency Medical Services; PCP Internal Medicine; Visit Provider Student in an Organized Health Care Education/Training Program | DX: G92.8 Other toxic encephalopathy (principal); F10.930 Alcohol use, unspecified with withdrawal, uncomplicated; F11.20 Opioid dependence, uncomplicated; E11.65 Type 2 diabetes mellitus with hyperglycemia; E83.42 Hypomagnesemia; R11.2 Nausea with vomiting, unspecified; E86.0 Dehydration; E87.6 Hypokalemia | CPT/HCPCS: 99223; 99233; 99239 ==

== ENCOUNTER 2023-07-12 12:14 | Outpatient (AMB) | payer OTHER, SELFPAY ==
[2023-07-12 12:37] VITALS: BP 104/68; PULSE 111; O2SAT 87; BMI 40.0
--- NOTE | 2023-07-12 12:37 | A.OFFPC_ITS ---
Vital Signs 07/12/23 12:37 Height 5 ft Weight 205 lb BMI 40.0 BP 104/68 Blood Pressure Location Lt brachial Position Sitting Pulse 111 H Pulse Source Pulse Oximeter Pulse Oximetry (%) 87 L Oxygen Delivery Method Nasal Cannula Intake Visit Reasons: High heart rate, low BP Intake Note: 57 y/o female here for high heart rate, low BP. Automotive Services Manager Required: No Allergies acetaminophen [Vicodin] Allergy (Unknown, Verified 07/12/23 12:43) Unknown hydrocodone [Vicodin] Allergy (Unknown, Verified 07/12/23 12:43) Unknown sumatriptan [From IMITREX] Allergy (Unknown, Verified 07/12/23 12:43) VOMITING,RASH Tobacco use date assessed: 07/12/23 Dental Screening Dental Screen Date: 07/12/23 Did you have a dental visit in the last 12 months?: No Did you have a dental problem in the last 6 months where you did not have access to dental care?: No HPI High heart rate, low BP HPI Details 57-year-old morbidly obese female with d iabetes mellitus hypertension, congestive heart failure with preserved ejection fraction hypercholesterolemia history of polysubstance abuse (alcohol and opiates) with COPD(on home O2). Review of the notes recent discharge from the hospital 06/01/2023 for congestive heart failure exacerbation in the setting of COVID and COPD(course complicated with alcohol withdrawal). Patient was in the hospital also in April for chest pain intractable vomiting versus secondary to alcohol use toxic metabolic encephalopathy related to withdrawal also had UTI. [facility] Medical History (Updated 06/10/23 @ 14:18 by Amaya Martinez MD) Type 2 diabetes mellitus with hyperglycemia Methadone dependence History of chronic carbon dioxide retention Alcohol abuse CHF (congestive heart failure) Shoulder pain Decreased vision of left eye Abnormal LFTs Bilateral pneumonia Polysubstance abuse Depression Substance abuse Physical exam Cocaine use disorder, moderate, dependence Tension headache Occipital headache Anxiety Diabetes UTI (urinary tract infection) Nausea & vomiting Sinusitis Pyelonephritis Cocaine abuse Cirrhosis Obesity Anxiety and depression Lightheaded Cranial nerve dysfunction Depression Anxiety Splenic vein thrombosis COPD (chronic obstructive pulmonary disease) Hypertension Nephrolithiasis Surgical History H/O wrist surgery Family History Father No problems noted. Mother Diabetes Social History Household Members: Family Household Members Other:: adult son Housing: Apartment Are you a primary property caretaker to a significant other at home: No Do you presently have visiting nurse or other home services: No 75 years or older and lives alone: No Alcohol intake: current Alcohol intake frequency: 3 or more drinks per day Comment: Pt refusing bed/chair alarm- steady on feet Patient Tobacco Use Status: Current everyday Tobacco user Tobacco use type: Cigarette Cigarette Packs Per Day: 1 Cigarettes Per Day: 20.0 Years Smoked: 30+ e-Cigarette/Vaping Use: Never Used Second Hand Smoke Exposure: No Substance Use Type: Former Substance User and Marijuana service: No Current occupational status: disabled Sexual orientation: Straight/Heterosexual Gender identity: Female Cognitive needs: Yes Hearing needs: No Vision needs: No Questionnaire Thrive Questionnaire Date Thrive assessed: 07/12/23 I am a: Patient What is your living situation today?: I have a steady place to live Within the past 12 months, did the food you bought not last and you didn't have the money to get more?: Never true Within the past 12 months, did you worry whether your food would run out before you got money to buy more?: Never true Do you have trouble paying for medicines?: No Do you have trouble getting transportation to medical appointments?: No Do you have trouble paying your heating and electricity bill?: No Do you have trouble taking care of your child, family member or friend?: No Do you have trouble with day-to-day activities such as bathing, preparing meals, shopping, managing finances, etc.?: No Are you currently unemployed and looking for a job?: No Are you interested in more education?: No Please select the resources that you would like help with: None THRIVE Score: 0 AUDIT C Alcohol Use Questionnaire (AUDIT-C) 1. How often do you have a drink containing alcohol?: Never Total Score: 0 Score Reviewed/Action Taken: Yes WILD-7 AMB Questionnaire WILD-7 Date WILD - 7 assessed: 07/12/23 Source: Developed by Drs. Maxx Vergara, Minnie Valle, Kashmir Johnson and colleagues, with an educational chandu from [employer]. Physical exam (Primary Care) Vital Signs: Last Vital Signs Pulse 111 H 07/12/23 12:37 BP 104/68 07/12/23 12:37 Pulse Ox 87 L 07/12/23 12:37 Oxygen Delivery Method Nasal Cannula 07/12/23 12:37 BMI result Body Mass Index 40.0 Tobacco/Smoking Status: Tobacco use Status Tobacco use date assessed 07/12/23 07/12/23 12:43 Patient Tobacco Use Status Current everyday Tobacco 07/12/23 12:43 Tobacco use type Cigarette 07/12/23 12:43 e-Cigarette/Vaping Use Never Used 07/12/23 12:43 Thrive Assessment: Date of Thrive Assessment Date Thrive assessed 07/12/23 07/12/23 12:43 Const General: alert; No acute distress Eyes Conjunctivae: conjunctivae normal Resp Auscultation: clear to auscultation bilaterally Cardio Rate: regular rate Rhythm: regular rhythm GI Inspection: Yes normal to inspection Extrem General: Yes normal to inspection and No edema Results AMB Hemoglobin A1c AMB Hemoglobin A1c 8.2 % Last Edit by SAV Colindres on 07/12/23 12:54 Results Reviewed Results Reviewed: Laboratory Last Values Hgb A1c (Clinic) 8.2 % (4.0-6.0) H 07/12/23 11:52 Assessment and Plan Assessment & Plan (1) Aortic stenosis: Comment: February 2023 moderate 1.1 cm Code(s): I35.0 - Nonrheumatic aortic (valve) stenosis Plan: Continuing to monitor February 2023 last time tested (2) Type 2 diabetes mellitus with hyperglycemia: Code(s): E11.65 - Type 2 diabetes mellitus with hyperglycemia Plan: Decrease the amount of carbohydrate intake, pasta, bread, rice and potatoes are all sugar and that is aside from all the sweet stuff, remember that fruits are good but they are Sweet also. Hemoglobin A1c goal of less than 6.5 on Lantus and Humalog metformin 500 twice a day discussed with the patient that if the blood sugar is low in the evening , patient has been discontinuing the Lantus and discussed with the patient that has not the right way and when the sugar is on the low side to let me know so that we can decrease the Lantus. Lantus covers for the whole days blood sugar and that is why it needs to be decreased in does not stop. (3) Hyperlipidemia: Code(s): E78.5 - Hyperlipidemia, unspecified Plan: Avoid fried foods, chicken skin, eggs, butter margarine, pastries and meat. Be it pork or beef they have a lot of cholesterol LDL goal of less than 70 and triglyceride of less than 150 presently not on any medication. Advised to retest/blood work requested. (4) MDD (major depressive disorder), recurrent episode, moderate: Code(s): F33.1 - Major depressive disorder, recurrent, moderate Plan: Continue with counseling and therapy (5) Opioid use disorder, severe, dependence: Code(s): F11.20 - Opioid dependence, uncomplicated Plan: Continue with counseling and therapy (6) COPD (chronic obstructive pulmonary disease): Code(s): J44.9 - Chronic obstructive pulmonary disease, unspecified Plan: Continue with the inhalers Advair and albuterol. Continue with oxygen keep sats more than 90 (7) Hypertension: Code(s): I10 - Essential (primary) hypertension Plan: Continue with blood pressure medication. Decrease salt intake and exercise prazosin only right now Orders: Orders AMB Hemoglobin A1c Today E11.65 - Type 2 diabetes mellitus with hyperglycemia Hemoglobin A1c 3 Months R73.9 - Hyperglycemia, unspecified Medications: New flash glucose sensor (FreeStyle Nathan 2 Sensor kit) As directed check the BS TID 6 kits 0RF E11.65 - Type 2 diabetes mellitus with hyperglycemia flash glucose scanning reader (FreeStyle Nathan 2 [place]) As directed check the BS TID 1 ea 0RF E11.65 - Type 2 diabetes mellitus with hyperglycemia Changed From insulin glargine (Lantus Solostar U-100 Insulin) 40 units (0.4 mL) subcut BEDTIME 15 mL 0RF To insulin glargine (Lantus Solostar U-100 Insulin) 35 units (0.35 mL) subcut BEDTIME 15 mL 0RF From quetiapine 12.5 mg (1/2 x 25 mg) PO Q4H 30 days PRN 30 tabs 6RF anxiety To quetiapine 25 mg PO Q4H 30 days PRN 30 tabs 6RF anxiety Refilled ondansetron 4 mg PO Q8H PRN 20 tabs 0RF nausea and vomiting gabapentin 900 mg (3 x 300 mg) PO TID 30 days 270 caps 7RF prazosin 3 mg See Protocol PO BEDTIME 30 days 90 caps 0RF E11.65 - Type 2 diabetes mellitus with hyperglycemia Coding Level of Care Code Est Pt Level 4 (90864) Diagnoses Aortic stenosis I35.0 Type 2 diabetes mellitus with hyperglycemia E11.65 Hyperlipidemia E78.5 MDD (major depressive disorder), recurrent episode, moderate F33.1 Opioid use disorder, severe, dependence F11.20 COPD (chronic obstructive pulmonary disease) J44.9 Hypertension I10
== END 2023-07-12 14:15 | disposition home or self-care (01) ==
PROVIDERS: PCP Internal Medicine; Visit Provider Internal Medicine
DX: E11.65 Type 2 diabetes mellitus with hyperglycemia (principal); F33.1 Major depressive disorder, recurrent, moderate; J44.9 Chronic obstructive pulmonary disease, unspecified; F11.20 Opioid dependence, uncomplicated; I35.0 Nonrheumatic aortic (valve) stenosis; E78.5 Hyperlipidemia, unspecified; I10 Essential (primary) hypertension
CPT/HCPCS: 83036; 99214

== ENCOUNTER → 2023-11-28 23:59 | Outpatient (BNV) | payer OTHER, SELFPAY | PROVIDERS: PCP Internal Medicine; Visit Provider Internal Medicine | DX: F10.930 Alcohol use, unspecified with withdrawal, uncomplicated (principal); J44.1 Chronic obstructive pulmonary disease with (acute) exacerbation; J96.21 Acute and chronic respiratory failure with hypoxia | CPT/HCPCS: G0179 ==

== ENCOUNTER 2023-12-09 09:02 | Outpatient (AMB) | payer OTHER, SELFPAY ==
--- NOTE | 2023-12-09 09:04 | A.OFFPC_ITS ---
Vital Signs 12/09/23 09:06 Height 5 ft Weight 190 lb 8 oz BMI 37.2 BP 120/70 Blood Pressure Location Lt brachial Position Sitting Pulse 120 H Pulse Source Pulse Oximeter Pulse Oximetry (%) 95 Oxygen Delivery Method Nasal Cannula Intake Visit Reasons: [facility] Discharge 11/23 Intake Note: Patient is here for hospital discharge follow up. Patient was discharged from [facility] on 11/24/23. Head Of Measurement & Insights Required: No Print Color Matcher: Not Required per policy Accompanied by: Self / Same As Patient Allergies acetaminophen [Vicodin] Allergy (Unknown, Verified 12/09/23 09:05) Unknown hydrocodone [Vicodin] Allergy (Unknown, Verified 12/09/23 09:05) Unknown sumatriptan [From IMITREX] Allergy (Unknown, Verified 12/09/23 09:05) VOMITING,RASH Tobacco use date assessed: 12/09/23 Dental Screening Dental Screen Date: 07/12/23 HPI HPI Comments History of Present Illness Details 58 y/o female patient who presents to [facility] today for HDF: She was admitted [facility] hospital for nausea, vomiting and diarrhea. She was discharged to [facility] 11/24/23. She does see Mental health Therapist for Anxiety and Depression @ [facility]. She currently medications. Today c/o difficulty sleeping at night with CPAP mask on. She does have Insomnia, and prescribed Mertazapine, Trazodone, and Prazosin. Reports medications do not work. She states that while in the hospital was given Ativan which helped alot with sleeping. Pt c/o Rash under Abdominal skin folds. Was using Nystatin Powder with good relief, asking for refills today. 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 Alcohol abuse CHF (congestive heart failure) Shoulder pain Decreased vision of left eye Abnormal LFTs Bilateral pneumonia Polysubstance abuse Depression Substance abuse Physical exam Cocaine use disorder, moderate, dependence Tension headache Occipital headache Anxiety Diabetes UTI (urinary tract infection) Nausea & vomiting Sinusitis Pyelonephritis Cocaine abuse Cirrhosis Obesity Anxiety and depression Lightheaded Cranial nerve dysfunction Depression Anxiety Splenic vein thrombosis COPD (chronic obstructive pulmonary disease) Hypertension Nephrolithiasis Surgical History H/O wrist surgery Family History Father No problems noted. Mother Diabetes Social History (Updated 12/09/23 @ 09:10 by SAV Luis) Household Members: Family Household Members Other:: adult son Housing: Apartment Are you a primary healthcare applications analyst to a significant other at home: No Do you presently have visiting nurse or other home services: No 75 years or older and lives alone: No Alcohol intake: current Alcohol intake frequency: 3 or more drinks per day Comment: Pt refusing bed/chair alarm- steady on feet Patient Tobacco Use Status: Current everyday Tobacco user Tobacco use type: Cigarette Cigarette Packs Per Day: 0.5 Cigarettes Per Day: 10 Years Smoked: 30+ e-Cigarette/Vaping Use: Never Used Second Hand Smoke Exposure: No Substance Use Type: Former Substance User and Marijuana service: No Current occupational status: disabled Sexual orientation: Straight/Heterosexual Gender identity: Female Cognitive needs: Yes Hearing needs: No Vision needs: No Questionnaire PHQ-9 Over the last 2 weeks, how often have you been bothered by any of the following problems? 1. Little interest or pleasure in doing things: not at all 2. Feeling down, depressed, or hopeless: not at all 3. Trouble falling or staying asleep, or sleeping too much: not at all 4. Feeling tired or having little energy: not at all 5. Poor appetite or overeating: not at all 6. Feeling bad about yourself - or that you are a failure or have let yourself or your family down: not at all 7. Trouble concentrating on things, such as reading the newspaper or watching television: not at all 8. Moving or speaking so slowly that other people could have noticed. Or the opposite - being so fidgety or restless that you have been moving around a lot more than usual: not at all 9. Thoughts that you would be better off or of hurting yourself in some way: not at all Total score: 0 Depression Screening Interpretation: Negative Depression Screening Done: Yes Source: Developed by Drs. Maxx Vergara, Minnie Valle, Kashmir Johnson and colleagues, with an educational chandu from [employer]. Thrive Questionnaire Date Thrive assessed: 07/12/23 WILD-7 AMB Questionnaire WILD-7 Date WILD - 7 assessed: 07/12/23 Source: Developed by Drs. Maxx Vergara, Minnie Valle, Kashmir Johnson and colleagues, with an educational chandu from [employer]. Review of Systems Const All systems reviewed & are unremarkable except as noted in HPI and below Physical exam (Primary Care) Vital Signs: Last Vital Signs Pulse 120 H 12/09/23 09:06 BP 120/70 12/09/23 09:06 Pulse Ox 95 12/09/23 09:06 Oxygen Delivery Method Nasal Cannula 12/09/23 09:06 BMI result Body Mass Index 37.2 Tobacco/Smoking Status: Tobacco use Status Tobacco use date assessed 12/09/23 12/09/23 09:11 Patient Tobacco Use Status Current everyday Tobacco 12/09/23 09:11 Tobacco use type Cigarette 12/09/23 09:11 e-Cigarette/Vaping Use Never Used 12/09/23 09:11 PHQ-9: PHQ-9 Score PHQ-9: Total score 0 12/09/23 09:11 Depression Screening Interpretation: Negative Thrive Assessment: Date of Thrive Assessment Date Thrive assessed 07/12/23 12/09/23 09:11 Const General: comfortable Orientation/consciousness: patient oriented x3 Resp Effort & Inspection: able to speak in complete sentences and labored Cardio Heart sounds: S1 normal heart sound present and S2 normal heart sound present Skin Rashes: rashes noted (under skin folds of Abdominal wall) Neuro General: patient oriented x3, gait normal and moves all extremities Psych Speech and movement: Normal speech and movement present Vital Signs: Last Vital Signs Pulse 120 H 12/09/23 09:06 BP 120/70 12/09/23 09:06 Pulse Ox 95 12/09/23 09:06 Oxygen Delivery Method Nasal Cannula 12/09/23 09:06 BMI result Body Mass Index 37.2 Const General: comfortable Orientation/consciousness: patient oriented x3 Resp Effort & Inspection: able to speak in complete sentences and labored Cardio Heart sounds: S1 normal heart sound present and S2 normal heart sound present Skin Rashes: rashes noted (under skin folds of Abdominal wall) Neuro General: patient oriented x3, gait normal and moves all extremities Psych Speech and movement: Normal speech and movement present Assessment and Plan Assessment & Plan (1) Nausea vomiting and diarrhea: Code(s): R11.2 - Nausea with vomiting, unspecified; R19.7 - Diarrhea, unspecified Plan: Improving, since the hospital discharged. Advised BLAND diet, avoid greasy and oily foods. (2) Insomnia due to mental condition: Code(s): F51.05 - Insomnia due to other mental disorder Plan: Will refill Trazodone, Mertazapine and Prazosin. She currently waiting to establish care with Psych Receives Therapy @ [facility]. Medications: New docusate sodium (Colace) 100 mg PO BID PRN 90 caps 0RF Constipation trazodone 50 mg PO BEDTIME PRN 90 tabs 0RF sleep F51.05 - Insomnia due to other mental disorder nystatin 1 appl topical BID 30 grams 0RF R21 - Rash and other nonspecific skin eruption Refilled mirtazapine 30 mg PO BEDTIME 30 days 30 tabs 1RF Coding Level of Care Code Est Pt Level 4 (08409) Diagnoses Nausea vomiting and diarrhea R11.2; R19.7 Insomnia due to mental condition F51.05 Comment Spent 20 minutes reviewing hospital notes
[2023-12-09 09:06] VITALS: BP 120/70; PULSE 120; O2SAT 95; BMI 37.2
== END 2023-12-09 09:48 | disposition home or self-care (01) ==
PROVIDERS: PCP Internal Medicine; Visit Provider Nurse Practitioner Family
DX: R11.2 Nausea with vomiting, unspecified (principal); R19.7 Diarrhea, unspecified; F51.05 Insomnia due to other mental disorder
CPT/HCPCS: 99214

== ENCOUNTER 2024-01-31 14:30 | Outpatient (AMB) | payer OTHER, SELFPAY ==
--- NOTE | 2024-01-31 14:34 | MHC.PC.OV ---
Vital Signs 01/31/24 14:35 Height 5 ft Weight 197 lb 4 oz BMI 38.5 BP 100/72 Blood Pressure Location Lt brachial Position Sitting Pulse 111 H Pulse Source Pulse Oximeter Pulse Oximetry (%) 96 Oxygen Delivery Method Nasal Cannula Intake Visit Reasons: [facility] 01/23 congestion heart failure Intake Note: Patient is here for hospital discharge follow up. Patient was discharged from [facility] on 01/23/24. Manufacturing Specialist Required: No General I Farmworker: Present Accompanied by: Son Allergies acetaminophen [Vicodin] Allergy (Unknown, Verified 01/31/24 14:35) Unknown hydrocodone [Vicodin] Allergy (Unknown, Verified 01/31/24 14:35) Unknown sumatriptan [From IMITREX] Allergy (Unknown, Verified 01/31/24 14:35) VOMITING,RASH Medication List - Last Reconciled 01/31/24 by Bianca Farfan PA-C albuterol sulfate 90 mcg/actuation (Ventolin HFA) 2 puffs inhalation Q6H PRN aspirin 81 mg PO DAILY blood sugar diagnostic (FreeStyle Lite Strips) Test four times a day or as directed. blood-glucose meter (FreeStyle Lite Meter kit) As Directed cane As directed dapagliflozin propanediol (Farxiga) mg PO diaper,brief,adult,disposable (Wings Choice Plus Adult Briefs) As directed docusate sodium (Colace) 100 mg PO BID PRN flash glucose scanning reader (FreeStyle Nathan 2 [place]) As directed check the BS TID flash glucose sensor (FreeStyle Nathan 2 Sensor kit) As directed check the BS TID folic acid 1 mg PO DAILY furosemide 20 mg PO QAM gabapentin 900 mg (3 x 300 mg) PO TID 30 days [GRAB BAR As directed] insulin glargine (Lantus Solostar U-100 Insulin) 10 units (0.1 mL) subcut BEDTIME insulin lispro (Humalog KwikPen (U-100) Insulin) 10 units (0.1 mL) subcut TID insulin lispro (Humalog U-100 Insulin) 10 units (0.1 mL) subcut TIDAC insulin syringe-needle U-100 (BD Insulin Syringe Ultra-Fine) As directed 4 times per day ipratropium-albuterol 0.5 mg-3 mg(2.5 mg base)/3 mL 3 mL inhalation Q4-6H PRN lancets (FreeStyle Lancets) Test four times a day or as directed. magnesium oxide 400 mg PO DAILY@0730 metformin 500 mg PO BID methadone (Methadone Intensol) 140 mg PO DAILY mirtazapine 30 mg PO BEDTIME 30 days nicotine 7 mg transdermal DAILY nystatin 1 appl topical BID omeprazole 40 mg PO DAILY@0630 ondansetron 4 mg PO Q8H PRN Oxygen Home Use 2L nasal cannula continuous pen needle, diabetic (BD Ultra-Fine Micro Pen Needle) test 4 times per day polyethylene glycol 3350 17 grams PO DAILY PRN prazosin 3 mg See Protocol PO BEDTIME 30 days [pulse oximeter As directed] quetiapine 25 mg PO Q4H PRN 30 days sertraline 50 mg PO DAILY thiamine mononitrate (vit B1) 100 mg PO DAILY trazodone 50 mg PO BEDTIME PRN umeclidinium-vilanterol 62.5-25 mcg/actuation (Anoro Ellipta) 1 ea inhalation DAILY Tobacco use date assessed: 01/31/24 Dental Screening Dental Screen Date: 07/12/23 HPI [facility] 01/23 congestion heart failure HPI Details 57-year-old morbidly obese female with diabetes mellitus hypertension, congestive heart failure with preserved ejection fraction hypercholesterolemia history of polysubstance abuse (alcohol and opiates) with COPD(on home O2). In review of the notes, patient was seen in [facility] 01/19/2024 for shortness of breath and was admitted for observation. Patient was treated for CHF and COPD exacerbation with Lasix at which point her respiratory status improved. Echocardiogram was done while admitted which showed moderate to severe aortic stenosis with preserved ejection fraction and recommended outpatient cardiology follow up. Also recommend following with pulmonology or change in maintenance therapy to Lama/Laba. Patient states today her breathing is back to her baseline and she is on 2 L of oxygen at home. She is taking all medications as prescribed. She does mentioned her sugars are still very sporadic and she does still have lows despite the recent change in insulin by Dr. Martinez. She does become symptomatic when she does have the lows. She also mentioned she has a rash on her genital region and inner thighs which is painful and itchy and has been present for several months. 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 Alcohol abuse Shoulder pain Decreased vision of left eye Abnormal LFTs Bilateral pneumonia Polysubstance abuse Depression Substance abuse Physical exam Cocaine use disorder, moderate, dependence Tension headache Occipital headache Anxiety Diabetes UTI (urinary tract infection) Nausea & vomiting Sinusitis Pyelonephritis Cocaine abuse Cirrhosis Obesity Anxiety and depression Lightheaded Cranial nerve dysfunction Depression Anxiety Splenic vein thrombosis COPD (chronic obstructive pulmonary disease) Hypertension Nephrolithiasis Surgical History H/O wrist surgery Family History Father No problems noted. Mother Diabetes Social History Household Members: Family Household Members Other:: adult son Housing: Apartment Are you a primary long term acute care registered nurse to a significant other at home: No Do you presently have visiting nurse or other home services: No 75 years or older and lives alone: No Alcohol intake: current Alcohol intake frequency: 3 or more drinks per day Comment: Pt refusing bed/chair alarm- steady on feet Patient Tobacco Use Status: Current everyday Tobacco user Tobacco use type: Cigarette Cigarette Packs Per Day: 0.25 Cigarettes Per Day: 5 Years Smoked: 30+ e-Cigarette/Vaping Use: Never Used Second Hand Smoke Exposure: Yes Substance Use Type: Former Substance User and Marijuana service: No Current occupational status: disabled Sexual orientation: Straight/Heterosexual Gender identity: Female Cognitive needs: Yes Hearing needs: No Vision needs: No Questionnaire Thrive Questionnaire Date Thrive assessed: 07/12/23 Are you currently unemployed and looking for a job?: No WILD-7 AMB Questionnaire WILD-7 Date WILD - 7 assessed: 07/12/23 Source: Developed by Drs. Maxx Vergara, Minnie Valle, Kashmir Johnson and colleagues, with an educational chandu from [employer]. Review of Systems Const Denies body aches, Denies chills, Denies fatigue and Denies fever(s) Eyes Reports no additional complaints ENT Reports no additional complaints Card Denies chest pain, Denies edema, Reports leg edema, Denies lightheadedness and Reports dyspnea (Occasional) Resp Denies cough and Reports dyspnea (Occasional) GI Reports no additional complaints Reports no additional complaints Musc Reports no additional complaints Skin/Breast Details: Rash on genitals and inner thighs Endo Denies fatigue Physical exam (Primary Care) BMI result Body Mass Index 38.5 Tobacco/Smoking Status: Tobacco use Status Tobacco use date assessed 12/09/23 12/09/23 09:11 Patient Tobacco Use Status Current everyday Tobacco 12/09/23 09:11 Tobacco use type Cigarette 12/09/23 09:11 e-Cigarette/Vaping Use Never Used 12/09/23 09:11 Thrive Assessment: Date of Thrive Assessment Date Thrive assessed 07/12/23 12/29/23 08:47 Const General: cooperative, healthy appearing, comfortable and no acute distress Orientation/consciousness: patient oriented x3 HENMT Head: Yes normocephalic Ears: hearing grossly normal bilaterally General nose exam: Normal external nose present Eyes General: appearance normal, both eyes and all related structures Conjunctivae: conjunctivae normal Neck Neck: Yes full ROM and Yes no lymphadenopathy Resp Effort & Inspection: normal respiratory effort Auscultation: clear to auscultation bilaterally, no crackles, no rales, no rhonchi and no wheezes Cardio Rate: regular rate Rhythm: regular rhythm Other: Beefy red/purple rash in plaques on inner thighs and genital region Skin General skin exam: no rashes or lesions noted Neuro General: patient oriented x3 Gait exam (Neuro): Normal gait present Extrem General: Yes normal to inspection, Yes full ROM and No edema Psych Affect: normal affect Attitude: cooperative Insight: Good insight present (Psych) Judgement: Good judgement present (Psych) Assessment and Plan Assessment & Plan (1) CHF (congestive heart failure): Code(s): I50.9 - Heart failure, unspecified Plan: Discussed daily weights and restrictive salt diet. Patient does have VNA regularly maintains her medications and she is taking them as prescribed. Referral to Cardiology placed today. Previously a patient of [facility] however would like [facility]. (2) COPD (chronic obstructive pulmonary disease): Code(s): J44.9 - Chronic obstructive pulmonary disease, unspecified Plan: Referral placed to pulmonology as advised by [facility]. Can consider switching to Lama/Laba for maintenance therapy of COPD. Continue on home oxygen at 2 L and strongly advised to stopped smoking. (3) Type 2 diabetes mellitus with hyperglycemia: Code(s): E11.65 - Type 2 diabetes mellitus with hyperglycemia Plan: Patient continues to have labile blood sugars with very low lows A1c while in the hospital 6.9% which is at goal. However patient does continue to have very fluctuating blood sugars with some as low as 40s and some as high as 300. We will refer to endocrinology at this time due to difficulty managing blood sugars. Also recommended to decrease Humalog to 10 units a.m., 5 units noon, 5 units p.m. if blood sugar spikes after this change return to 10 units in the afternoon. Decrease the amount of carbohydrates such as pasta, bread, rice, and potatoes and limit the amount of sweets. Although fruits are generally healthy they should be eaten in moderation as they are still high in sugar. Also discussed the importance of not skipping meals while on these medications. Hemoglobin A1c goal of less than 7%. (4) Mana infection: Code(s): B37.9 - Candidiasis, unspecified Plan: Rash on genital and inner thigh consistent with Mana infection. We will use topical clotrimazole for treatment and prescribe nystatin powder for prevention after rash is cleared. (5) MDD (major depressive disorder), recurrent episode, moderate: Code(s): F33.1 - Major depressive disorder, recurrent, moderate Plan: Referral to counseling and outpatient psych clinic placed today. Continue on current med regimen. Plan This note was constructed using voice recognition software. While every effort has been made to ensure accuracy and professor of theatre, still areas may have been included sometimes these areas may affect the content or meeting of the given symptoms. Total time spent caring for the patient today was 30 minutes. This includes time spent before the visit reviewing the chart, time spent during the visit, and time spent after the visit and documentation. Orders: Referrals Endocrinology Referral E11.65 - Type 2 diabetes mellitus with hyperglycemia Counseling Referral F33.1 - Major depressive disorder, recurrent, moderate Cardiology Referral I50.9 - Heart failure, unspecified Pulmonology Referral J44.9 - Chronic obstructive pulmonary disease, unspecified Psychiatry Outpatient Consultation Service F33.1 - Major depressive disorder, recurrent, moderate Medications: New clotrimazole 1% 1 appl topical BID 30 grams 0RF Changed From insulin glargine (Lantus Solostar U-100 Insulin) 35 units (0.35 mL) subcut BEDTIME 15 mL 0RF To insulin glargine (Lantus Solostar U-100 Insulin) 10 units (0.1 mL) subcut BEDTIME 15 mL 0RF Refilled nystatin 1 appl topical BID 30 grams 0RF R21 - Rash and other nonspecific skin eruption Coding Level of Care Code Est Pt Level 4 (25219) Diagnoses CHF (congestive heart failure) I50.9 COPD (chronic obstructive pulmonary disease) J44.9 Type 2 diabetes mellitus with hyperglycemia E11.65 Mana infection B37.9 MDD (major depressive disorder), recurrent episode, moderate F33.1
[2024-01-31 14:35] VITALS: BP 100/72; PULSE 111; O2SAT 96; BMI 38.5
== END 2024-01-31 15:23 | disposition home or self-care (01) ==
PROVIDERS: PCP Internal Medicine
DX: I50.9 Heart failure, unspecified (principal); J44.9 Chronic obstructive pulmonary disease, unspecified; E11.65 Type 2 diabetes mellitus with hyperglycemia; B37.9 Candidiasis, unspecified; F33.1 Major depressive disorder, recurrent, moderate

== ENCOUNTER → 2024-01-31 14:30 | Outpatient (BNVA) | payer OTHER, SELFPAY | PROVIDERS: PCP Internal Medicine | DX: I50.9 Heart failure, unspecified (principal); E11.65 Type 2 diabetes mellitus with hyperglycemia; J44.9 Chronic obstructive pulmonary disease, unspecified; F33.1 Major depressive disorder, recurrent, moderate; B37.9 Candidiasis, unspecified | CPT/HCPCS: 99212 ==

== ENCOUNTER → 2024-02-01 07:34 | Outpatient (BNVA) | payer OTHER, SELFPAY | PROVIDERS: PCP Internal Medicine ==

== ENCOUNTER 2024-02-13 17:16 | Outpatient (AMB) | payer OTHER, SELFPAY ==
[2024-02-13 17:23] VITALS: BP 122/76; PULSE 105; O2SAT 96; BMI 38.3
--- NOTE | 2024-02-13 17:23 | MHC.PC.OV ---
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: No Accompanied by: Self / Same As Patient Allergies acetaminophen [Vicodin] Allergy (Unknown, Verified 02/13/24 17:25) Unknown hydrocodone [Vicodin] Allergy (Unknown, Verified 02/13/24 17:25) Unknown sumatriptan [From IMITREX] Allergy (Unknown, Verified 02/13/24 17:25) VOMITING,RASH Tobacco use date assessed: 01/31/24 Dental Screening Dental Screen Date: 02/13/24 Did you have a dental visit in the last 12 months?: No Did you have a dental problem in the last 6 months where you did not have access to dental care?: No Was dental information given to patient?: Patient has dentist HPI DM, CHF, COPD HPI Details 58-year-old obese female with polysubstance abuse history hypertension COPD PTSD diabetes mellitus nephrolithiasis hypercholesterolemia aortic stenosis congestive heart failure coming in for follow-up. Last seen in 01/31/2024. Review of the notes COPD exacerbation January 18 ER visit patient was admitted. Patient comes in for follow-up has some shortness of breath but states not any different can hear wheezing. Patient also noted swelling of the legs with pain. 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 Mother Diabetes Social History Household Members: Family Household Members Other:: adult son Housing: Apartment Are you a primary home care scheduler to a significant other at home: No Do you presently have visiting nurse or other home services: No 75 years or older and lives alone: No Alcohol intake: current Alcohol intake frequency: 3 or more drinks per day Comment: Pt refusing bed/chair alarm- steady on feet Patient Tobacco Use Status: Current everyday Tobacco user Tobacco use type: Cigarette Cigarette Packs Per Day: 0.25 Cigarettes Per Day: 5 Years Smoked: 30+ e-Cigarette/Vaping Use: Never Used Second Hand Smoke Exposure: Yes Substance Use Type: Former Substance User and Marijuana service: No Current occupational status: disabled Sexual orientation: Straight/Heterosexual Gender identity: Female Cognitive needs: Yes Hearing needs: No Vision needs: No Questionnaire Thrive Questionnaire Date Thrive assessed: 07/12/23 Are you currently unemployed and looking for a job?: No WILD-7 AMB Questionnaire WILD-7 Date WILD - 7 assessed: 07/12/23 Source: Developed by Drs. Maxx Vergara, Minnie Valle, Kashmir Johnson and colleagues, with an educational chandu from [employer]. Physical exam (Primary Care) Tobacco/Smoking Status: Tobacco use Status Tobacco use date assessed 01/31/24 01/31/24 14:44 Patient Tobacco Use Status Current everyday Tobacco 01/31/24 14:44 Tobacco use type Cigarette 01/31/24 14:44 e-Cigarette/Vaping Use Never Used 01/31/24 14:44 Thrive Assessment: Date of Thrive Assessment Date Thrive assessed 07/12/23 02/01/24 09:48 Const General: alert; No acute distress Eyes Conjunctivae: conjunctivae normal Resp Other: Bilateral wheezing Auscultation: rhonchi and wheezes Cardio Rate: regular rate Rhythm: regular rhythm GI Inspection: Yes normal to inspection Extrem Other: Bilateral lower extremity hard skin of the legs with induration and erythema bilateral +2 edema General: Yes edema Assessment and Plan Assessment & Plan (1) Type 2 diabetes mellitus with hyperglycemia: Code(s): E11.65 - Type 2 diabetes mellitus with hyperglycemia Plan: Decrease the amount of carbohydrate intake, pasta, bread, rice and potatoes are all sugar and that is aside from all the sweet stuff, remember that fruits are good but they are Sweet also. Hemoglobin A1c goal of less than 6.5. Patient takes Farxiga Lantus 10 units once a day lispro/Humalog sliding scale metformin is 500 mg twice a day (2) Hyperlipidemia: Code(s): E78.5 - Hyperlipidemia, unspecified Plan: Avoid fried foods, chicken skin, eggs, butter margarine, pastries and meat. Be it pork or beef they have a lot of cholesterol LDL goal of less than 100 and triglyceride of less than 150 patient will need blood work (3) COPD (chronic obstructive pulmonary disease): Code(s): J44.9 - Chronic obstructive pulmonary disease, unspecified Plan: Continue with Anoro with albuterol. Continue with oxygen . Paitent follow up with Pulmonary 04/2024. Patient is treated for exacerbation of the COPD. (4) Hypertension: Code(s): I10 - Essential (primary) hypertension Plan: Continue with blood pressure medication. Decrease salt intake and exercise patient is on no blood pressure medication (5) Aortic stenosis: Comment: February 2023 moderate 1.1 cm Code(s): I35.0 - Nonrheumatic aortic (valve) stenosis Plan: Continue to monitor (6) Polysubstance abuse: Code(s): F19.10 - Other psychoactive substance abuse, uncomplicated Plan: Presently on methadone (7) Peripheral vascular disease: Code(s): I73.9 - Peripheral vascular disease, unspecified Plan: When sitting down elevate the legs, exercise, and support stockings (8) Cellulitis of leg: Code(s): L03.119 - Cellulitis of unspecified part of limb Plan: Antibiotic prescribed for the patient into take probiotics if diarrhea occurs (9) Breast cancer screening by mammogram: Code(s): Z12.31 - Encounter for screening mammogram for malignant neoplasm of breast Plan: Mammogram requested (10) Colon cancer screening: Code(s): Z12.11 - Encounter for screening for malignant neoplasm of colon Plan: Patient is referred to Gastroenterology for colonoscopy Orders: Orders MM tomosynthesis screening BI Today Z12.31 - Encounter for screening mammogram for malignant neoplasm of breast B Type Natriuretic Peptide Today I73.9 - Peripheral vascular disease, unspecified Referrals Gastroenterology Referral Z12.11 - Encounter for screening for malignant neoplasm of colon Ophthalmology Referral E11.65 - Type 2 diabetes mellitus with hyperglycemia Podiatry Referral E11.65 - Type 2 diabetes mellitus with hyperglycemia Medications: New prednisone 4 tabs QD x 2 days then 3 tabs QD x 2 days then 2 tabs Qd x 2 days then 1 tab QD x 2 days PO daily; 20 tabs 0RF J44.9 - Chronic obstructive pulmonary disease, unspecified, J45.909 - Unspecified asthma, uncomplicated amoxicillin-pot clavulanate 875-125 mg 1 tab PO BID 14 tabs 0RF L03.119 - Cellulitis of unspecified part of limb compress.stocking,knee,reg,med As directed 20-30 mm HG 12 ea 0RF I73.9 - Peripheral vascular disease, unspecified Refilled flash glucose sensor (FreeStyle Nathan 2 Sensor kit) As directed check the BS TID 6 kits 6RF E11.65 - Type 2 diabetes mellitus with hyperglycemia Discontinued nicotine Discontinued Reason: Order 7 mg transdermal DAILY 30 ea 0RF Coding Level of Care Code Est Pt Level 4 (89679) Complex EM visit Add On G2211 Diagnoses Type 2 diabetes mellitus with hyperglycemia E11.65 Hyperlipidemia E78.5 COPD (chronic obstructive pulmonary disease) J44.9 Hypertension I10 Aortic stenosis I35.0 Polysubstance abuse F19.10 Peripheral vascular disease I73.9 Cellulitis of leg L03.119 Breast cancer screening by mammogram Z12.31 Colon cancer screening Z12.11
== END 2024-02-13 17:55 | disposition home or self-care (01) ==
PROVIDERS: PCP Internal Medicine; Visit Provider Internal Medicine
DX: E11.65 Type 2 diabetes mellitus with hyperglycemia (principal); J44.9 Chronic obstructive pulmonary disease, unspecified; F19.10 Other psychoactive substance abuse, uncomplicated; I73.9 Peripheral vascular disease, unspecified; E78.5 Hyperlipidemia, unspecified; I10 Essential (primary) hypertension; I35.0 Nonrheumatic aortic (valve) stenosis; L03.119 Cellulitis of unspecified part of limb; Z12.31 Encounter for screening mammogram for malignant neoplasm of breast; Z12.11 Encounter for screening for malignant neoplasm of colon

== ENCOUNTER → 2024-02-13 17:16 | Outpatient (BNVA) | payer OTHER, SELFPAY | PROVIDERS: PCP Internal Medicine; Visit Provider Internal Medicine | DX: E11.65 Type 2 diabetes mellitus with hyperglycemia (principal); E78.5 Hyperlipidemia, unspecified; J44.9 Chronic obstructive pulmonary disease, unspecified; I10 Essential (primary) hypertension; I35.0 Nonrheumatic aortic (valve) stenosis; F19.10 Other psychoactive substance abuse, uncomplicated; I73.9 Peripheral vascular disease, unspecified | CPT/HCPCS: 99212 ==

== ENCOUNTER 2024-04-04 14:54 | Outpatient (AMB) | payer OTHER, SELFPAY ==
[2024-04-04 15:00] VITALS: BP 111/58; PULSE 54; O2SAT 99; BMI 40.2
--- NOTE | 2024-04-04 15:00 | MHC.OFFVIS ---
Vital Signs 04/04/24 15:00 Height 5 ft 1 in Weight 212 lb 11.937 oz BMI 40.2 BP 111/58 L Blood Pressure Location Rt brachial Position Sitting Pulse 54 Pulse Source Doppler Pulse Oximetry (%) 99 Oxygen Delivery Method Nasal Cannula Oxygen Flow Rate 2 Intake Visit Reasons: copd Allergies acetaminophen [Vicodin] Allergy (Unknown, Verified 04/04/24 15:07) Unknown hydrocodone [Vicodin] Allergy (Unknown, Verified 04/04/24 15:07) Unknown sumatriptan [From IMITREX] Allergy (Unknown, Verified 04/04/24 15:07) VOMITING,RASH HPI HPI copd: Details: 58-year-old lady with underlying supplemental oxygen 2 L dependent COPD ([employer], prescribed by PCP), CO2 retention requiring multiple hospitalizations for rescue BiPAP support, lower extremity edema with cardiology evaluation pending referred for pulmonary follow-up. Patient states that she has been using Anoro, duo nebs, and albuterol MDI with reasonable control of her symptoms. She does complain of worsening lower extremity edema despite taking Lasix 20 mg every day. She does have prior CPAP that is at least 4 years old, however his symptoms are not well controlled and she continues with CO2 retention issues requiring hospitalizations. 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 Mother Diabetes Social History (Updated 04/04/24 @ 15:08 by SAV العلي) Household Members: Family Household Members Other:: adult son Housing: Apartment Are you a primary senior care assistant to a significant other at home: No Do you presently have visiting nurse or other home services: No Alcohol intake: current Alcohol intake frequency: 3 or more drinks per day Comment: Pt refusing bed/chair alarm- steady on feet Patient Tobacco Use Status: Current everyday Tobacco user Tobacco use type: Cigarette Cigarette Packs Per Day: 0.25 Cigarettes Per Day: 4 Years Smoked: 30+, started at age 12, 1PPD e-Cigarette/Vaping Use: Never Used Second Hand Smoke Exposure: Yes Substance Use Type: Former Substance User and Marijuana service: No Current occupational status: disabled Sexual orientation: Straight/Heterosexual Gender identity: Female Cognitive needs: Yes Hearing needs: No Vision needs: No Review of Systems Const Denies daytime sleepiness, Denies excessive sweating, Denies fatigue, Denies fever(s), Denies lethargy, Denies malaise, Denies night sweats, Denies snoring and Denies weight loss Eyes Denies blurry vision and Denies itchy eyes ENT Denies nasal congestion, Denies post nasal drip, Denies sinus pain, Denies sinus pressure and Denies other ( Thrush) Card Denies chest pain, Denies pedal edema, Denies dyspnea, Denies orthopnea and Denies paroxysmal nocturnal dyspnea Resp Denies cough, Denies hemoptysis, Denies excessive phlegm production, Denies dyspnea, Denies snoring and Denies wheezing GI Denies abdominal pain and Denies heartburn Musc Denies myalgias, Denies arthralgias and Denies joint swelling Skin/Breast Denies rash Neuro Denies memory loss and Denies seizure-like activity Psych Denies abnormal sleep pattern, Denies anxiety and Denies memory loss Endo Denies excessive sweating, Denies fatigue and Denies heat intolerance Trey/Lymph Denies easy bruising Aller/Immun Denies itchy eyes, Denies seasonal rhinorrhea and Denies wheezing Physical Exam Vital Signs: Last Vital Signs Pulse 54 04/04/24 15:00 BP 111/58 L 04/04/24 15:00 Pulse Ox 99 04/04/24 15:00 Oxygen Delivery Method Nasal Cannula 04/04/24 15:00 Oxygen Flow Rate 2 04/04/24 15:00 BMI result Body Mass Index 40.2 Const General: no acute distress and alert Nutritional Appearance: obese Orientation/consciousness: Other orientation findings ( oriented) HEENT Head: Yes atraumatic Eyes General: appearance normal, both eyes and all related structures Sclerae: sclerae normal EOM: EOMs intact bilaterally Neck Neck: Yes supple Lymphatic: no lymphadenopathy noted Resp Effort & Inspection: normal respiratory effort and no use of accessory muscles Auscultation: clear to auscultation bilaterally Cardio Rate: regular rate Rhythm: regular rhythm Heart sounds: no gallops, no murmurs and no rubs Skin General skin exam: other ( warm) Extrem General: No clubbing, No cyanosis and Yes edema (2+ bilateral) Assessment & Plan Assessment & Plan (1) COPD (chronic obstructive pulmonary disease): Code(s): J44.9 - Chronic obstructive pulmonary disease, unspecified Category: Medical Plan: Unclear severity. Will obtain full PFT. Continue Anoro, duo nebs, and albuterol MDI. (2) Supplemental oxygen dependent: Code(s): Z99.81 - Dependence on supplemental oxygen Category: Medical Plan: Continue supplemental oxygen to maintain O2 saturation at 88-92%. (3) CO2 retention: Code(s): E87.29 - Other acidosis Category: Medical Plan: With underlying obstructive sleep apnea. Will obtain titration study. (4) Hypoventilation syndrome: Code(s): R06.89 - Other abnormalities of breathing Category: Medical Plan: With underlying obstructive sleep apnea. Will obtain titration study. (5) Lower extremity edema: Code(s): R60.0 - Localized edema Category: Medical Plan: Will increase diuretic to 40 mg daily. Coding Level of Care Code New Pt Level 5 (99010) Diagnoses COPD (chronic obstructive pulmonary disease) J44.9 Supplemental oxygen dependent Z99.81 CO2 retention E87.29 Hypoventilation syndrome R06.89 Lower extremity edema R60.0
== END 2024-04-04 15:32 | disposition home or self-care (01) ==
PROVIDERS: PCP Internal Medicine; Visit Provider Internal Medicine Pulmonary Disease
DX: J44.9 Chronic obstructive pulmonary disease, unspecified (principal); Z99.81 Dependence on supplemental oxygen; E87.29 Other acidosis; R60.0 Localized edema
CPT/HCPCS: 99214

== ENCOUNTER → 2024-04-04 14:54 | Outpatient (BNVA) | payer OTHER, SELFPAY | PROVIDERS: PCP Internal Medicine; Visit Provider Internal Medicine Pulmonary Disease | DX: J44.9 Chronic obstructive pulmonary disease, unspecified (principal); R06.09 Other forms of dyspnea; E87.29 Other acidosis; R60.0 Localized edema; Z99.81 Dependence on supplemental oxygen | CPT/HCPCS: 99212 ==

== ENCOUNTER 2024-05-31 03:43 | Inpatient (IN) | payer OTHER, SELFPAY ==
[2024-05-31] VITALS (48 sets, daily range): BP systolic 69–147; BP diastolic 32–96; PULSE 57–112; RESP 12–22; TEMP 36.4–37.4; O2SAT 90–100; BMI 33.4; BMI 36.1
--- NOTE | 2024-05-31 | ECG_ITS ---
Test Reason : tachycardic Blood Pressure : */* mmHG Vent. Rate : 104 BPM Atrial Rate : 104 BPM P-R Int : 144 ms QRS Dur : 100 ms QT Int : 332 ms P-R-T Axes : 54 84 134 degrees QTcB Int : 436 ms Sinus tachycardia Possible Left atrial enlargement Incomplete right bundle branch block Nonspecific ST and T wave abnormality Abnormal ECG When compared with ECG of 11-May-2023 10:16, Significant changes have occurred Referred By: Generic ED Physician Electronically Signed By: Wong Hogan
--- NOTE | ~2024-05-31 | XR_ITS ---
EXAMINATION: XR CHEST 1 VIEW HISTORY: hypotension, recent pneumonia COMPARISON: Comparison is made with the prior examination dated 05/11/2023. FINDINGS: A single AP portable view of the chest performed at 1:25 PM is submitted. There is linear subsegmental atelectasis in the right midlung zone. Improvement in previously seen bibasilar airspace opacities. There is no pleural effusion, pneumothorax, or pulmonary vascular congestion. The heart is enlarged. There is degenerative disc disease of the spine. XR/XR chest 1V IMPRESSION: Cardiomegaly. Improvement in bibasilar airspace opacities. Subsegmental atelectasis in the right midlung. Electronically signed by: Maxx Melgoza MD 05/31/2024 01:55 PM [facility]
--- NOTE | ~2024-05-31 | XR_ITS ---
EXAMINATION: XR CHEST CLINICAL INFORMATION: cough COMPARISON: 05/31/2024, 05/11/2023. TECHNIQUE: AP portable view of the chest was obtained. FINDINGS: Prominent cardiac silhouette, unchanged. Mediastinal contours normal. Aorta is calcified. Vascular congestion in the hilar regions. Lungs demonstrate worsening right greater than left basilar parenchymal opacities, likely with superimposed mild interstitial pulmonary edema. There is evidence for bronchial wall thickening in both lungs, most notable in the right hilar region. Cannot exclude tiny effusions. No new thorax. No focal soft tissue or osseous abnormalities. XR/XR chest 1V IMPRESSION: 1. Interval worsening in bibasilar airspace disease right greater than left, which appears superimposed upon mild diffuse pulmonary edema. Differential includes worsening multilobar pneumonia versus regions of alveolar edema. 2. Suspect tiny effusions right greater than left. Electronically signed by: Db Stone MD 06/06/2024 09:26 AM [facility]
--- NOTE | 2024-05-31 04:25 | PC.NURSE ---
late entry: pt biba from home c/o right lower leg pain. denies any trauma. bilateral LE displays w/ redness, swelling, taught and hot to the touch. pt reports chills/subjective fevers. recent admission at [facility] d/t urosepsis. pt also reports she went into respiratory distress which had resulted in intubation. upon ED arrival - a&ox4. tachycardic - pt denies any chest pain/palpitations. hot to the touch - rectal temp displays 99.4. pt arrives on 2L via NC (baseline). pt noted to be incontinent of a large amount of urine upon ED arrival. urine noted to be strong and foul smelling urine. pt states she is usually ambulatory independently w/ use of a walker but has been unable to ambulate d/t increased bilateral LE pain which resulted in pt laying in her own urine and feces. pt noted to have affected area on coccyx. redness noted throughout. extremely tender to the touch. pink foam applied to affected area. picture obtained and sent to . d/t pt's vital signs, pt noted to be a sepsis alert. MD notified/aware. after multiple attempts - 20gIV placed in the right hand - labs obtained/sent to lab. 2nd set of blood cultures obtained by tech. ekg performed by [employer]. no signs of respiratory distress noted. no sob/wob noted. respirations even/unlabored. plan of care ongoing. call moore placed within reach.
[2024-05-31 04:33] LABS: Basophils Percent Auto 0.4 % (0-2); Eosinophils Absolute Auto 0.2 X10*3/uL (0.0-0.4); Eosinophils Percent Auto 1.4 % (0-4); Hematocrit 29.9 % (37.0-47.0); Hemoglobin 9.6 g/dl (12.0-16.0); Imm Gran Abs Auto 0.09 X10*3/uL (0.00-0.03); Imm Gran Pct Auto 0.9 % (0.0-0.4); Lymphocytes Absolute Auto 1.5 X10*3/uL (1.2-4.9); Lymphocytes Percent Auto 14.3 % (20-40); MANUAL DIFF FLAG NO; Mean Corpuscular HGB Conc 32.1 g/dl (31.0-35.0); Mean Corpuscular Hemoglobin 30.6 pg (27.0-33.0); Mean Corpuscular Volume 95.2 fL (80.0-98.0); Mean Platelet Volume 10.8 fL (9.4-12.3); Monocytes Absolute Auto 0.4 X10*3/uL (0.1-1.2); Monocytes Percent Auto 3.9 % (2-11); Neutrophils Absolute Auto 8.2 x10*3/uL (2.0-8.3); Neutrophils Percent Auto 79.1 % (45-73); Platelet Count 236 X10*3/uL (160-400); Red Blood Count 3.14 X10*6/uL (4.20-5.50); White Blood Count 10.4 X10*3/uL (4.8-10.8)
[2024-05-31 04:48] LABS: Lactic Acid 1.3 mmol/L (0.5-2.0)
[2024-05-31 04:50] LABS: Appearance Urine Cloudy; Color Urine Yellow; Glucose Urine UA >=1000 mg/dL (Negative); Leukocyte Esterase Urine Moderate (2+) (Negative); Nitrite Urine Negative (Negative); Specific Gravity - Urine 1.015 (1.005-1.025); UMIC TRIGGER UACC YES; Urine Blood Negative (Negative); Urine Ketones Negative (Negative); Urine Protein Negative (Neg-Trace)
--- NOTE | 2024-05-31 05:01 | ED.GENADULT ---
HPI - General Adult General Chief complaint: General Medical Stated complaint: weakness Time Seen by Provider: 05/31/24 05:01 Source: patient Mode of arrival: EMS Limitations: no limitations History of Present Illness ED Provider: Dr. Bonifacio Galeana HPI narrative: 58-year-old female with a history of COPD ( 2 L O2 as needed at home), aortic stenosis, congestive heart failure, hypertension, polysubstance abuse ( on methadone), alcohol abuse, diabetes mellitus type 2, and anxiety who was brought to emergency department by ambulance for evaluation of lower extremity weakness, redness, inability to walk, chills, urinary frequency and dysuria, nausea with no vomiting and diarrhea x3 days. Patient states that she was recently released from [facility] where she was treated for 2 weeks for COPD, diabetes mellitus, congestive heart failure, sepsis and pneumonia. She states she has been home he for 3 days and has not been able to get out of bed or walk. She states she was had very poor oral intake and he was not been eating or drinking. Patient states she was also had increased redness in her lower extremities as well as pain in her lower extremities. She states that the redness is new. Patient also states that she had an addiction to oxycodone and was in a methadone program. She believes she was getting methadone while she was at [facility] but does not know when for last dose of methadone was given. Related Data Home Medications ?Medication ?Instructions ?Recorded ?Confirmed methadone 10 mg/mL oral 140 mg PO DAILY 02/02/22 01/31/24 concentrate (Methadone Intensol) pulse oximeter 02/03/22 01/31/24 gabapentin 300 mg capsule 300 mg PO TID 05/31/24 05/31/24 insulin lispro 100 unit/mL 5 unit subcut TID 05/31/24 05/31/24 subcutaneous pen (Humalog KwikPen (U-100) Insulin) metoprolol succinate 25 mg 25 mg PO DAILY 05/31/24 05/31/24 tablet,extended release 24 hr prazosin 1 mg capsule 1 mg PO BEDTIME 05/31/24 05/31/24 quetiapine 25 mg tablet 12.5 mg PO Q4H PRN anxiety 05/31/24 05/31/24 valsartan 40 mg tablet 20 mg PO DAILY 05/31/24 05/31/24 Previous Rx's ?Medication ?Instructions ?Recorded cane #1 ea 10/16/21 GRAB BAR #1 ea 12/26/23 sertraline 50 mg tablet 50 mg PO DAILY #30 tabs 02/12/24 Oxygen Home Use #1 ea 03/19/24 albuterol sulfate 90 mcg/actuation 2 puff inhalation Q6H PRN for 03/19/24 aerosol inhaler (Ventolin HFA) wheezing #8.5 grams aspirin 81 mg tablet,delayed 81 mg PO DAILY #90 tabs 03/19/24 release blood sugar diagnostic (FreeStyle #100 ea 03/19/24 Lite Strips) blood-glucose meter (FreeStyle #1 ea 03/19/24 Lite Meter kit) clotrimazole 1 % topical cream 1 appl topical BID #30 grams 03/19/24 compress.stocking,knee,reg,med #12 ea 03/19/24 diaper,brief,adult,disposable #60 ea 03/19/24 (Wings Choice Plus Adult Briefs) docusate sodium 100 mg capsule 100 mg PO BID PRN Constipation #90 03/19/24 (Colace) caps flash glucose scanning reader #1 ea 03/19/24 (FreeStyle Nathan 2 [place]) flash glucose sensor (FreeStyle #6 kits 03/19/24 Nathan 2 Sensor kit) folic acid 1 mg tablet 1 mg PO DAILY #90 tabs 03/19/24 insulin syringe-needle U-100 1 mL #100 ea 03/19/24 31 gauge x 5/16 (BD Insulin Syringe Ultra-Fine) lancets 28 gauge (FreeStyle #100 ea 03/19/24 Lancets) magnesium oxide 400 mg (241.3 mg 400 mg PO DAILY@0730 #90 tabs 03/19/24 magnesium) tablet metformin 500 mg tablet 500 mg PO BID #180 tabs 03/19/24 mirtazapine 30 mg tablet 30 mg PO BEDTIME 30 days #30 tabs 03/19/24 nystatin 100,000 unit/gram topical 1 appl topical BID #30 grams 03/19/24 powder omeprazole 40 mg capsule,delayed 40 mg PO DAILY@0630 #90 caps 03/19/24 release ondansetron 4 mg disintegrating 4 mg PO Q8H PRN nausea and 03/19/24 tablet vomiting #20 tabs pen needle, diabetic 32 gauge x #100 ea 03/19/24 1/4 (BD Ultra-Fine Micro Pen Needle) polyethylene glycol 3350 17 gram 17 g PO DAILY PRN Constipation 03/19/24 oral powder packet #100 ea thiamine mononitrate (vit B1) 100 100 mg PO DAILY #90 tabs 03/19/24 mg tablet trazodone 50 mg tablet 50 mg PO BEDTIME PRN sleep #90 tabs 03/19/24 umeclidinium 62.5 mcg-vilanterol 1 ea inhalation DAILY #60 ea 03/19/24 25 mcg/actuation powdr for inhalation (Anoro Ellipta) insulin glargine 100 unit/mL (3 15 unit (0.15 mL) subcut BEDTIME 03/31/24 mL) subcutaneous pen (Lantus 30 days #4.5 mL Solostar U-100 Insulin) furosemide 40 mg tablet 40 mg PO QAM 30 days #30 tabs 04/04/24 Adult pull ups #300 ea 04/10/24 dapagliflozin propanediol 10 mg 10 mg PO DAILY #30 tabs 04/10/24 tablet (Farxiga) ipratropium 0.5 mg-albuterol 3 mg 3 ml inhalation Q4-6H PRN 05/25/24 (2.5 mg base)/3 mL nebulization shortness of breath or wheezing soln #180 mL Allergies Allergy/AdvReac Type Severity Reaction Status Date / Time acetaminophen [Vicodin] Allergy Unknown Unknown Verified 05/31/24 03:56 hydrocodone [Vicodin] Allergy Unknown Unknown Verified 05/31/24 03:56 sumatriptan [From IMITREX] Allergy Unknown VOMITING,RA Verified 05/31/24 03:56 Review of Systems Review of Systems: Yes all other systems are reviewed and are negative [facility] Past Medical History [facility] Narrative: Social history: She states she lives at home with her sons. She denies tobacco and alcohol use. She states that she did have an addiction to oxycodone and was on methadone. She did state that she was on methadone while she was at [facility] but does not know when her last dose was given. 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 Mother Diabetes Social History Social History (Updated 04/04/24 @ 15:08 by SAV العلي) Household Members: Family Household Members Other:: sons Housing: Apartment Are you a primary skin care technician to a significant other at home: No Do you presently have visiting nurse or other home services: Yes 75 years or older and lives alone: No Alcohol intake: current Alcohol intake frequency: 3 or more drinks per day Comment: Pt refusing bed/chair alarm- steady on feet Patient Tobacco Use Status: Current everyday Tobacco user Tobacco use type: Cigarette Cigarette Packs Per Day: 1 Cigarettes Per Day: 20.0 Years Smoked: 30 e-Cigarette/Vaping Use: Never Used Second Hand Smoke Exposure: Yes Substance Use Type: Marijuana Advance Directives Date on File: 05/31/24 service: No Current occupational status: disabled Sexual orientation: Straight/Heterosexual Gender identity: Female Cognitive needs: Yes Hearing needs: No Vision needs: No Physical Exam ED Vital Signs: Vital Signs - 24 hr 05/31/24 03:55 05/31/24 04:42 05/31/24 04:58 Temperature 99.4 F Pulse Rate 110 H 106 H 96 Respiratory Rate 22 H 18 14 Blood Pressure 114/65 104/56 L 87/54 L Pulse Oximetry 99 99 99 Oxygen Delivery Method Nasal Cannula Nasal Cannula Nasal Cannula Oxygen Flow Rate 2 2 05/31/24 04:58 05/31/24 05:45 05/31/24 06:11 Temperature 98.4 F Pulse Rate 99 99 93 Respiratory Rate 14 16 16 Blood Pressure 84/50 L 91/53 L 96/60 Pulse Oximetry 98 100 96 Oxygen Delivery Method Nasal Cannula Nasal Cannula Nasal Cannula Oxygen Flow Rate 2 2 2 05/31/24 06:30 05/31/24 06:56 05/31/24 07:38 Temperature 98.6 F Pulse Rate 99 93 84 Respiratory Rate 16 13 16 Blood Pressure 95/58 L 104/48 L 95/41 L Pulse Oximetry 96 100 95 Oxygen Delivery Method Nasal Cannula Nasal Cannula Nasal Cannula Oxygen Flow Rate 2 5 2 05/31/24 07:49 05/31/24 08:18 05/31/24 09:17 Temperature 98.4 F 97.5 F 97.8 F Pulse Rate 85 90 85 Respiratory Rate 16 18 16 Blood Pressure 108/51 L 96/50 L 90/53 L Pulse Oximetry 94 92 94 Oxygen Delivery Method Nasal Cannula Nasal Cannula Nasal Cannula Oxygen Flow Rate 2 2 2 BMI result Body Mass Index 33.4 Initial vital signs did reveal elevated heart rate of 110, elevated respiratory rate of 22. Patient has had repeat vital signs with lowest systolic blood pressure of 84. Exam: General: Awake, alert in no distress Head: Normocephalic, atraumatic EENT: PERRL, Lids normal, sclera normal, conjunctiva normal, nose normal , ears normal, throat without erythema or exudates Neck: Supple, no adenopathy Lung: breath sounds symmetric, no wheezing, rales or rhonchi Chest: symmetric movement, nontender Heart: regular rate and rhythm, normal S1, S2, 3/6 systolic murmur heard throughout the precordium but increased in the left lower sternal border and right upper sternal border Abdomen: Obese, soft, non-tender, nondistended, normal bowel sounds Back: no vertebral tenderness, no CVAT Extremities: Patient has increased erythema increased warmth of the lower extremities sparing the feet and ankles. Skin: Patient also has erythema with skin breakdown of her buttocks area. Neuro: Awake, alert, oriented, normal speech, cranial nerves intact, moves all extremities symmetrically Psych: Pleasant, cooperative Course Course Course Narrative: 1059 - BP consistently below 80s systolic. Patient is tachycardic she is sleepy but is oriented though appears slow to respond and she is slightly confused about events at [facility]. At this time I notifed hospitalist about persistent hypotension it was agreed to start on levophed. I am starting levophed RN aware, hospitalist is notifying Dr. James 05/31/24 11am Medications Administered Generic Name Dose Route Start Last Admin Trade Name Lenny PRN Reason Stop Dose Admin Acetaminophen 650 mg 06/01/24 15:47 06/02/24 21:33 Acetaminophen 325 Mg Tablet PO 650 mg Q6H PRN Administration Pain, Moderate(Pain Scale 4-6) Albuterol/Ipratropium 3 ml 05/31/24 12:00 06/02/24 19:39 Albuterol/Iprat 2.5/0.5mg 3 Ml Ampul.Neb INHALE 3 ml RQ4H WHILE AWAKE NAYE Administration Aspirin 81 mg 06/01/24 09:00 06/02/24 08:12 Aspirin 81 Mg Tab.Chew PO 81 mg DAILY NAYE Administration Folic Acid 1 mg 06/02/24 09:00 06/02/24 08:12 Folic Acid 1 Mg Tablet PO 1 mg DAILY NAYE Administration Furosemide 40 mg 06/02/24 12:30 06/02/24 13:50 Furosemide 40 Mg Tablet PO 40 mg DAILY NAYE Administration Protocol Gabapentin 300 mg 06/02/24 15:00 06/02/24 20:55 Gabapentin 300 Mg Capsule PO 300 mg TID NAYE Administration Heparin Sodium (Porcine) 5,000 unit 05/31/24 10:15 06/02/24 18:48 Heparin Sodium,Porcine 5,000 Unit/Ml Vial SUBCUT 5,000 unit Q8H NAYE Administration Piperacillin Sod/Tazobactam 50 mls @ 100 mls/hr 05/31/24 18:00 06/02/24 20:57 Sod 2.25 gm/ Sodium Chloride IV Infused Q6H NAYE Infusion Vancomycin HCl 1,500 mg/ 500 mls @ 333.333 mls/hr 06/02/24 13:00 06/02/24 15:46 Sodium Chloride IV Infused Q24H NAYE Infusion Insulin Glargine 15 unit 06/02/24 21:00 06/02/24 21:03 Insulin Glargine,Hum.Rec.Anlog 100 Unit/Ml 10 Ml Vial SUBCUT 15 unit BEDTIME NAYE Administration Insulin Human Lispro 0 unit 05/31/24 11:30 06/02/24 21:04 Insulin Lispro 100 Unit/Ml 3 Ml Vial SUBCUT 2 unit QIDACHS NAYE Administration Protocol Magnesium Oxide 400 mg 06/02/24 07:30 06/02/24 08:12 Magnesium Oxide 400 Mg Tablet PO 400 mg DAILY@0730 NAYE Administration Methadone HCl 115 mg 06/01/24 08:00 06/02/24 08:13 Methadone Hcl 20 Mg/2 Ml Oral.Conc PO 115 mg DAILY@0800 NAYE Administration Nicotine 21 mg 06/01/24 09:00 06/02/24 08:14 Nicotine 21 Mg Patch.Td24 TRANSDERMA 21 mg DAILY NAYE Administration Nystatin 1 appl 06/01/24 21:00 06/02/24 21:02 Nystatin Powder 15 Gm Bottle TOPICAL 1 appl BID NAYE Administration Protocol Omeprazole 40 mg 06/02/24 06:30 06/02/24 06:04 Omeprazole 40 Mg Capsule.Dr PO 40 mg DAILY@0630 NAYE Administration Ondansetron HCl 4 mg 06/01/24 13:51 06/02/24 15:59 Ondansetron Odt 4 Mg Tab.Rapdis TRANSLINGU 4 mg Q6H PRN Administration Nausea and Vomiting Prazosin HCl 1 mg 06/02/24 21:00 06/02/24 20:55 Prazosin Hcl 1 Mg Capsule PO 1 mg BEDTIME NAYE Administration Protocol Quetiapine Fumarate 12.5 mg 06/02/24 12:26 06/02/24 13:54 Quetiapine Fumarate 25 Mg Tablet PO 12.5 mg Q4H PRN Administration anxiety Sertraline HCl 50 mg 06/02/24 09:00 06/02/24 08:12 Sertraline Hcl 50 Mg Tablet PO 50 mg DAILY NAYE Administration Sodium Chloride 3 ml 05/31/24 16:00 06/02/24 20:57 0.9 % Sodium Chloride Flush 3 Ml Syringe IVFLUSH 3 ml QSHIFT NAYE Administration Thiamine HCl 100 mg 06/02/24 09:00 06/02/24 08:12 Thiamine Hcl 100 Mg Tablet PO 100 mg DAILY NAYE Administration Trazodone HCl 50 mg 06/01/24 20:25 06/02/24 20:54 Trazodone Hcl 50 Mg Tablet PO 50 mg BEDTIME PRN Administration Insomnia Trazodone HCl 50 mg 06/02/24 12:26 06/02/24 20:55 Trazodone Hcl 50 Mg Tablet PO 50 mg BEDTIME PRN Administration sleep Discontinued Medications Generic Name Dose Route Start Last Admin Trade Name Freq PRN Reason Stop Dose Admin Acetaminophen 975 mg 05/31/24 06:32 05/31/24 06:38 Acetaminophen 325 Mg Tablet PO 05/31/24 06:33 975 mg ONCE STA Administration Hydroxyzine HCl 25 mg 06/02/24 05:58 06/02/24 08:12 Hydroxyzine Hcl 25 Mg Tablet PO 06/02/24 05:59 25 mg ONCE ONE Administration Piperacillin Sod/Tazobactam 100 mls @ 200 mls/hr 05/31/24 05:03 05/31/24 05:41 Sod 4.5 gm/ Sodium Chloride IV 05/31/24 05:32 Infused ONCE ONE Infusion Sodium Chloride 1,434 mls @ 1,434 mls/hr 05/31/24 05:05 05/31/24 07:20 Ns IV 05/31/24 06:04 Infused .Q1H STA Infusion Magnesium Sulfate/Dextrose 1 gm in 100 mls @ 100 mls/hr 05/31/24 06:27 05/31/24 07:40 Magnesium Sulfate/D5w IV 05/31/24 07:26 Infused ONCE ONE Infusion Lactated Ringer's 1,000 mls @ 999 mls/hr 05/31/24 10:00 05/31/24 11:11 Lr IV 05/31/24 11:00 Infused .Q1H1M NAYE Infusion Piperacillin Sod/Tazobactam 50 mls @ 100 mls/hr 05/31/24 11:00 05/31/24 17:29 Sod 2.25 gm/ Sodium Chloride IV Not Given Q6H NAYE Doxycycline Hyclate 100 mg/ 250 mls @ 166.67 mls/hr 05/31/24 10:15 05/31/24 12:06 Sodium Chloride IV Infused Q12H NAYE Infusion Lactated Ringer's 1,000 mls @ 999 mls/hr 05/31/24 10:30 05/31/24 11:59 Lr IV 05/31/24 11:30 Infused .Q1H1M NAYE Infusion Norepinephrine Bitartrate 8 mg in 250 mls @ 0 mls/hr 05/31/24 11:00 06/01/24 08:32 Levophed IVCONT Infused .Q0M NAYE Titration Protocol Per Protocol Calcium Gluconate 1 gm in 50 mls @ 50 mls/hr 05/31/24 11:17 05/31/24 15:09 Calcium Gluconate IV 05/31/24 12:16 Infused ONCE ONE Infusion Clindamycin Phosphate 600 mg in 50 mls @ 100 mls/hr 05/31/24 11:30 06/02/24 12:56 Cleocin IV Infused Q8H NAYE Infusion Albumin Human 100 mls @ 100 mls/hr 05/31/24 11:45 05/31/24 15:40 Kedbumin 25 % IV 05/31/24 13:44 Infused Q1H NAYE Infusion Vancomycin HCl 2,000 mg in 500 mls @ 250 mls/hr 05/31/24 15:00 05/31/24 17:15 Vancomycin/Ns IV 05/31/24 16:59 Infused ONCE ONE Infusion Vancomycin HCl 1,000 mg/ 270 mls @ 270 mls/hr 06/01/24 14:00 06/01/24 14:26 Sodium Chloride IV Infused Q24H NAYE Infusion Magnesium Sulfate 2 gm in 50 mls @ 25 mls/hr 05/31/24 20:00 05/31/24 21:45 Magnesium Sulfate/H2o IV 05/31/24 21:59 Infused ONCE ONE Infusion Albumin Human 100 mls @ 100 mls/hr 05/31/24 23:30 06/01/24 00:23 Kedbumin 25 % IV 06/01/24 00:29 Infused ONCE ONE Infusion Lorazepam 1 mg 06/01/24 20:25 06/01/24 20:45 Lorazepam 1 Mg Tablet PO 06/01/24 20:26 1 mg ONCE ONE Administration Methadone HCl 60 mg 05/31/24 13:44 05/31/24 16:47 Methadone Hcl 20 Mg/2 Ml Oral.Conc PO 05/31/24 13:45 60 mg ONCE ONE Administration Midodrine 5 mg 05/31/24 23:30 05/31/24 23:48 Midodrine Hcl 5 Mg Tablet PO 05/31/24 23:31 5 mg ONCE ONE Administration Ondansetron HCl 4 mg 05/31/24 05:46 05/31/24 06:09 Ondansetron Hcl 4 Mg/2 Ml Vial IVPUSH 05/31/24 05:47 4 mg ONCE ONE Administration Ondansetron HCl 4 mg 05/31/24 23:49 06/01/24 00:23 Ondansetron Hcl 4 Mg/2 Ml Vial IVPUSH 05/31/24 23:50 4 mg ONCE ONE Administration Potassium Chloride 20 meq 05/31/24 20:00 05/31/24 19:42 Potassium Chloride Packet 20 Meq Packet PO 05/31/24 20:01 20 meq ONCE ONE Administration Medical Decision Making Medical Decision Making [facility] Narrative: 58-year-old female who was brought to emergency department by ambulance for evaluation of lower extremity weakness, redness, inability to walk, chills, urinary frequency and dysuria, nausea with no vomiting and diarrhea x3 days. Patient states that she was recently released from [facility] where she was treated for 2 weeks for COPD, diabetes mellitus, congestive heart failure sepsis and pneumonia. She states she has been home he for 3 days and has not been able to get out of bed or walk. She states she was had very poor oral intake and he was not been eating or drinking. Patient states she was also had increased redness in her lower extremities as well as pain in her lower extremities. Physical examination did reveal increased warmth and erythema to her lower extremities and skin breakdown in her buttocks area. 05:03 Differential diagnosis: ?Includes but is not limited to cellulitis, urinary tract infection, electrolyte abnormalities, anemia Course: 06:41 My interpretation patient's laboratory evaluation is as follows: Normocytic anemia with an H&H of 9.6 and 29.9. Elevated BUN and creatinine of 48 and 1.73 with a GFR of 30 this is compared to 05/17/2023 when her BUN was 6 and creatinine was 0.7 with a GFR of greater than 60. This may be chronic or may be secondary to volume depletion from poor oral intake. Lactic acid was normal at 1.3. BNP was elevated 243. Magnesium was low at 1.3. Urinalysis was positive for leukocyte esterase. Microscopic revealed 10-20 WBCs, 3-5 squamous cells and 4+ bacteria. CRP was elevated 11.6. The patient is obese with an elevated BMI of 33.4 therefore she was given 30 cc/kilogram normal saline bolus based on her ideal body weight. She was also given Zosyn 4.5 g IV to treat possible cellulitis and urinary tract infection. Patient low magnesium he was treated with magnesium sulfate 1 g IV. 07:00 I did discuss the patient's presentation over tiger text with the covering hospitalist, Dr. Elmore and the patient will be admitted to the hospitalist service for further treatment. Admission/Observation Consideration of admission/observation: Escalation of care including admission/observation considered (Yes) Lab Data MDM Lab Attestation statement: I reviewed the patient's lab results. 06/02/24 11:46 06/02/24 11:46 Labs: Lab Results 05/31/24 05/31/24 05/31/24 Range/Units 04:25 04:35 04:45 WBC 10.4 (4.8-10.8) X10*3/uL RBC 3.14 L (4.20-5.50) X10*6/uL Hgb 9.6 L (12.0-16.0) g/dl Hct 29.9 L D (37.0-47.0) % MCV 95.2 (80.0-98.0) fL MCH 30.6 (27.0-33.0) pg MCHC 32.1 (31.0-35.0) g/dl RDW 14.0 (11.0-16.0) % Plt Count 236 D (160-400) X10*3/uL MPV 10.8 (9.4-12.3) fL Immature Gran % (Auto) 0.9 H (0.0-0.4) % Neut % (Auto) 79.1 H (45-73) % Lymph % (Auto) 14.3 L (20-40) % Cooper % (Auto) 3.9 (2-11) % Eos % (Auto) 1.4 (0-4) % Baso % (Auto) 0.4 (0-2) % Lymph # (Auto) 1.5 (1.2-4.9) X10*3/uL Cooper # (Auto) 0.4 (0.1-1.2) X10*3/uL Eos # (Auto) 0.2 (0.0-0.4) X10*3/uL Baso # (Auto) 0.0 (0.0-0.2) X10*3/uL Abs Immat Gran (auto) 0.09 H (0.00-0.03) X10*3/uL Absolute Neuts (auto) 8.2 (2.0-8.3) x10*3/uL Absolute Nucleated RBC 0.000 (0.0-0.012) X10*3/uL Nucleated RBC % (auto) 0.0 (0.0-0.2) /100WBC ESR 96 H (0-20) MM/HR Sodium (135-145) mmol/L Potassium (3.3-5.1) mmol/L Chloride (96-108) mmol/L Carbon Dioxide (22-29) mmol/L Anion Gap (12-20) BUN (9-16) mg/dL Creatinine (0.5-1.4) mg/dL Estim Creat Clear Calc Estimated GFR POC Glucose (60-115) mg/dL Random Glucose (60-115) mg/dL Lactic Acid 1.3 (0.5-2.0) mmol/L Calcium (8.4-10.2) mg/dL Magnesium (1.6-2.6) mg/dL Total Bilirubin (0.0-1.0) mg/dL AST (5-31) U/L ALT (0-31) U/L Alkaline Phosphatase (39-117) U/L C-Reactive Protein (< or = 0.50) mg/dL B-Natriuretic Peptide 243 H (<100) pg/mL Total Protein (6.5-8.0) g/dL Albumin (3.5-5.0) g/dL Urine Color Yellow Urine Appearance Cloudy Urine pH 5.0 (5.0-9.0) Ur Specific [place] 1.015 (1.005-1.025) Urine Protein Negative (Neg-Trace) mg/dL Urine Glucose (UA) >=1000 H (Negative) mg/dL Urine Ketones Negative (Negative) mg/dL Urine Blood Negative (Negative) Urine Nitrite Negative (Negative) Ur Leukocyte Esterase Moderate (2+) H (Negative) Urine RBC 0-2 (0-2) /HPF Urine WBC 11-20 (0-5) /HPF Ur Squamous Epith Cells 3-5 (0-2) /HPF Urine Bacteria 4+ (None Seen) Hyaline Casts 0-2 (0-2) /LPF Urine Yeast Present 05/31/24 05/31/24 Range/Units 05:02 05:44 WBC (4.8-10.8) X10*3/uL RBC (4.20-5.50) X10*6/uL Hgb (12.0-16.0) g/dl Hct (37.0-47.0) % MCV (80.0-98.0) fL MCH (27.0-33.0) pg MCHC (31.0-35.0) g/dl RDW (11.0-16.0) % Plt Count (160-400) X10*3/uL MPV (9.4-12.3) fL Immature Gran % (Auto) (0.0-0.4) % Neut % (Auto) (45-73) % Lymph % (Auto) (20-40) % Cooper % (Auto) (2-11) % Eos % (Auto) (0-4) % Baso % (Auto) (0-2) % Lymph # (Auto) (1.2-4.9) X10*3/uL Cooper # (Auto) (0.1-1.2) X10*3/uL Eos # (Auto) (0.0-0.4) X10*3/uL Baso # (Auto) (0.0-0.2) X10*3/uL Abs Immat Gran (auto) (0.00-0.03) X10*3/uL Absolute Neuts (auto) (2.0-8.3) x10*3/uL Absolute Nucleated RBC (0.0-0.012) X10*3/uL Nucleated RBC % (auto) (0.0-0.2) /100WBC ESR (0-20) MM/HR Sodium 138 (135-145) mmol/L Potassium 4.5 (3.3-5.1) mmol/L Chloride 100 (96-108) mmol/L Carbon Dioxide 24 (22-29) mmol/L Anion Gap 19 (12-20) BUN 48 H (9-16) mg/dL Creatinine 1.73 H (0.5-1.4) mg/dL Estim Creat Clear Calc 33.9 Estimated GFR 30 POC Glucose 245 H (60-115) mg/dL Random Glucose 251 H (60-115) mg/dL Lactic Acid (0.5-2.0) mmol/L Calcium 8.3 L (8.4-10.2) mg/dL Magnesium 1.3 L* (1.6-2.6) mg/dL Total Bilirubin 0.2 (0.0-1.0) mg/dL AST 43 H (5-31) U/L ALT 15 (0-31) U/L Alkaline Phosphatase 96 (39-117) U/L C-Reactive Protein 11.60 H (< or = 0.50) mg/dL B-Natriuretic Peptide (<100) pg/mL Total Protein 7.3 (6.5-8.0) g/dL Albumin 3.3 L (3.5-5.0) g/dL Urine Color Urine Appearance Urine pH (5.0-9.0) Ur Specific [place] (1.005-1.025) Urine Protein (Neg-Trace) mg/dL Urine Glucose (UA) (Negative) mg/dL Urine Ketones (Negative) mg/dL Urine Blood (Negative) Urine Nitrite (Negative) Ur Leukocyte Esterase (Negative) Urine RBC (0-2) /HPF Urine WBC (0-5) /HPF Ur Squamous Epith Cells (0-2) /HPF Urine Bacteria (None Seen) Hyaline Casts (0-2) /LPF Urine Yeast External Record Review External record reviewed: Outside ED record ( [facility]) Chronic Conditions Patient?s care impacted by: Other (COPD) Discharge Plan Discharge Clinical Impression: Hypotension Patient Disposition: Admitted As Inpatient Discharge Date/Time: 05/31/24 12:45
[2024-05-31 05:03] LABS: B Type Natriuretic Peptide 243 pg/mL (<100)
[2024-05-31 05:04] LABS: Bacteria Urine 4+ (None Seen); Hyaline Casts Urine 0-2 /LPF (0-2); RBC Urine 0-2 /HPF (0-2); UACC Culture Trigger YES
[2024-05-31 05:05] LABS: Glucose, Whole Blood 245 mg/dL (60-115)
[2024-05-31 05:10] LABS: Erythrocyte Sedimentation Rate 96 MM/HR (0-20)
[2024-05-31] MEDS: Piperacillin Sodium/Tazobactam 4.5 GM in 0.9 % Sodium Chloride 100 ML IV (05:11)
[2024-05-31] MEDS: 0.9 % Sodium Chloride 1,434 ML 1434 ML IV (05:11)
--- NOTE | 2024-05-31 05:12 | PC.NURSE ---
phlebotomy called to notify this RN that previous labs that were drawn had hemolyzed. pt is an extremely difficult stick. multiple attempts made at obtaining repeat labs. no success. another 20gIV via ultrasound guided IV placed in the right forearm - labs obtained/sent to lab. IVF/abx administered per provider order. pt aware of all updated vital signs included pt being hypotensive. otherwise vss and up to date. respirations even/unlabored. plan of care ongoing. call moore placed within reach.
[2024-05-31] MEDS: ondansetron HCL 4 MG/2 ML VIAL IVPUSH (06:09)
[2024-05-31 06:14] LABS: Alanine Aminotransferase 15 U/L (0-31); Albumin Level 3.3 g/dL (3.5-5.0); Alkaline Phosphatase 96 U/L (39-117); Anion Gap 19 (12-20); Aspartate Amino Transferase 43 U/L (5-31); Bilirubin Total 0.2 mg/dL (0.0-1.0); Blood Urea Nitrogen 48 mg/dL (9-16); Calcium 8.3 mg/dL (8.4-10.2); Carbon Dioxide 24 mmol/L (22-29); Chloride 100 mmol/L (96-108); Creatinine Clr Calc Pharmacy 33.9; Estimated Glomerular Filt Rate 30; Glucose Random 251 mg/dL (60-115); Potassium 4.5 mmol/L (3.3-5.1); Sodium 138 mmol/L (135-145); Total Protein 7.3 g/dL (6.5-8.0)
[2024-05-31 06:15] LABS: Magnesium 1.3 mg/dL (1.6-2.6)
--- NOTE | 2024-05-31 06:15 | PC.NURSE ---
critical lab value received at this time - magnesium 1.3 - dr. hull notified/aware.
[2024-05-31] MEDS: Acetaminophen 325 MG TABLET 975 MG PO (06:38)
[2024-05-31] MEDS: Magnesium Sulfate/D5W 1 GM/100 ML PIGGYBACK IV (06:38)
--- NOTE | 2024-05-31 06:40 | PC.NURSE ---
pt verbalizing increase in pain in LE bilaterally. provider notified/aware. medication administered per provider order. effectiveness pending.
--- NOTE | 2024-05-31 08:35 | PC.NURSE ---
pt verbalizes increase in pain in coccyx area. pt turned/repositioned to comfort. pillow applied to pt's right side to promote comfort.
[2024-05-31] MEDS: Lactated Ringers 1,000 ML 999 ML IV ×2 (09:57→10:58)
--- NOTE | 2024-05-31 10:09 | P.HPHOSP_ITS ---
History of Present Illness Date of Service: 05/31/24 Chief Complaint: leg pain/weakness, dysuria The patient is a 58-year-old female with a past medical history of diabetes mellitus, COPD and chronic respiratory failure with hypoxia, CHF, chronic opiate dependence on methadone, and others who presented to [facility] ED with a several day history of poor oral intake, dysuria and worsening right lower extremity pain/weakness. The patient reports that she was hospitalized at [facility] for several weeks where she was treated for COPD, sepsis, respiratory failure requiring mechanical ventilation. She reports that she was discharged 3 days prior to this hospitalization and since being home she has continued to worsen. She reports that she has had a decreased appetite and oral intake but denies abdominal pain, nausea, vomiting. She reports right leg pain and weakness which have been persistent since her [facility] hospitalization. She reports worsening erythema bilaterally. Upon further questioning, she endorses urinary frequency and dysuria of 2 days' duration. She denies any flank pain. Patient reports subjective fevers without chills. She denies EtOh/substance use (prior documentation shows polysubstance use) In the emergency room, the patient was found to have a UA concerning for urinary tract infection. Furthermore, she has bilateral lower extremity erythema, warmth, tenderness as well as skin breakdown/erythema of the buttock region. She was found to have acute kidney injury with a serum creatinine of 1.7, baseline is around 0.7. Mag is low at 1.3. She was also hypotensive in the 80s to 90s systolic. She has been given a 30 cc/kg bolus, IV Zosyn, IV magnesium, IV Zofran and admission has been requested. Patient is seen and examined in the emergency room around 09:45. Her blood pressure is ranging from 90s to 100 systolic. She is completely asymptomatic in this regard. She is requesting her methadone. Informed by RN around 10:15 the patient's BP was in the 70s and 60 systolic. Patient re-evaluated shortly there after. BP manually checked in he 80s/40s, no tachycardia. Pt again denies symptoms of hypotension and is awake. Given persistent low BP -- will ask plastic finisher to evaluate for ICU level of care. Will check CXR and give dose of vancomcyin. Review of Systems 2 Review of Systems: Negative except HPI/interval history. 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 Mother Diabetes Surgical History H/O wrist surgery Social History (Updated 04/04/24 @ 15:08 by Terrie Naidu Ludivina) Household Members: Family Household Members Other:: sons Housing: Apartment Are you a primary patient centered care specialist to a significant other at home: No Do you presently have visiting nurse or other home services: Yes 75 years or older and lives alone: No Alcohol intake: current Alcohol intake frequency: 3 or more drinks per day Comment: Pt refusing bed/chair alarm- steady on feet Patient Tobacco Use Status: Current everyday Tobacco user Tobacco use type: Cigarette Cigarette Packs Per Day: 1 Cigarettes Per Day: 20.0 Years Smoked: 30 e-Cigarette/Vaping Use: Never Used Second Hand Smoke Exposure: Yes Substance Use Type: Marijuana Advance Directives Date on File: 05/31/24 service: No Current occupational status: disabled Sexual orientation: Straight/Heterosexual Gender identity: Female Cognitive needs: Yes Hearing needs: No Vision needs: No Meds Allergies Allergy/AdvReac Type Severity Reaction Status Date / Time acetaminophen [Vicodin] Allergy Unknown Unknown Verified 05/31/24 03:56 hydrocodone [Vicodin] Allergy Unknown Unknown Verified 05/31/24 03:56 sumatriptan [From IMITREX] Allergy Unknown VOMITING,RA Verified 05/31/24 03:56 SH Active Medications: Current Medications Calcium Carbonate (Calcium Carbonate 750 Mg Tab.Chew) 750 mg PO Q4H PRN PRN Reason: Heartburn Heparin Sodium (Porcine) (Heparin Sodium,Porcine 5,000 Unit/Ml Vial) 5,000 unit SUBCUT Q8H [facility] Lactated Ringer's (Lr) 1,000 mls @ 999 mls/hr IV .Q1H1M [facility] Stop: 05/31/24 11:00 Last Admin: 05/31/24 09:57 Dose: 999 mls/hr Piperacillin Sod/Tazobactam (Sod 3.375 gm/ Sodium Chloride) 50 mls @ 100 mls/hr IV Q6H [facility] Doxycycline Hyclate 100 mg/ (Sodium Chloride) 250 mls @ 166.67 mls/hr IV Q12H [facility] Magnesium Hydroxide (Milk Of Magnesia 30 Ml Oral.Susp) 30 ml PO DAILY PRN PRN Reason: Constipation Melatonin (Melatonin 3 Mg Tablet) 6 mg PO BEDTIME PRN PRN Reason: Insomnia Sodium Chloride (0.9 % Sodium Chloride Flush 3 Ml Syringe) 3 ml IVFLUSH QSHIFT [facility] Home Medications ?Medication ?Instructions ?Recorded ?Confirmed ?Last Taken ?Type methadone 10 mg/mL oral 140 mg PO DAILY 02/02/22 01/31/24 05/10/23 History concentrate (Methadone Intensol) pulse oximeter 02/03/22 01/31/24 Unknown History gabapentin 300 mg capsule 300 mg PO TID 05/31/24 05/31/24 05/30/24 History insulin lispro 100 unit/mL 5 unit subcut TID 05/31/24 05/31/24 05/30/24 History subcutaneous pen (Humalog KwikPen (U-100) Insulin) metoprolol succinate 25 mg 25 mg PO DAILY 05/31/24 05/31/24 05/30/24 History tablet,extended release 24 hr prazosin 1 mg capsule 1 mg PO BEDTIME 05/31/24 05/31/24 05/30/24 History quetiapine 25 mg tablet 12.5 mg PO Q4H PRN anxiety 05/31/24 05/31/24 05/30/24 History valsartan 40 mg tablet 20 mg PO DAILY 05/31/24 05/31/24 05/30/24 History Physical Exam 2 Vital Signs and Narrative: Vital Signs: Last Vital Signs Temp 97.8 F 05/31/24 09:17 Pulse 85 05/31/24 09:17 Resp 16 05/31/24 09:17 BP 90/53 L 05/31/24 09:17 Pulse Ox 94 05/31/24 09:17 O2 Del Method Nasal Cannula 05/31/24 09:17 O2 Flow Rate 2 05/31/24 09:17 Oxygen Flow Rate 2 05/31/24 03:55 BMI result Body Mass Index 33.4 Const: Other: Constitutional - Awake and Alert, No apparent distress Eyes - PERRLA, EOMI Cardiovascular - S1S2, RRR, No edema; no jvd, no rales;+systolic murmur Respiratory - dim sounds globally Gastrointestinal - NT / ND; +BS; No rebound or guarding - No CVA tenderness Extremities - no calf tenderness bilaterally, no swelling Musculoskeletal - see pictures Skin - see picutres Neurological - Alert & oriented x3, No focal deficit Psychological - Appropriate affect Skin: Other: Results Labs 06/04/24 06:22 06/03/24 10:48 Labs: Laboratory Results - last 24 hr 05/31/24 05/31/24 05/31/24 04:25 04:35 04:45 MCV 95.2 MCH 30.6 MCHC 32.1 RDW 14.0 Plt Count 236 D MPV 10.8 Immature Gran % (Auto) 0.9 H Neut % (Auto) 79.1 H Lymph % (Auto) 14.3 L [place] % (Auto) 3.9 Eos % (Auto) 1.4 Baso % (Auto) 0.4 Lymph # (Auto) 1.5 [place] # (Auto) 0.4 Eos # (Auto) 0.2 Baso # (Auto) 0.0 Abs Immat Gran (auto) 0.09 H Absolute Neuts (auto) 8.2 Absolute Nucleated RBC 0.000 Nucleated RBC % (auto) 0.0 ESR 96 H Anion Gap Estim Creat Clear Calc Estimated GFR POC Glucose Random Glucose Lactic Acid 1.3 Calcium Magnesium Total Bilirubin AST ALT Alkaline Phosphatase C-Reactive Protein B-Natriuretic Peptide 243 H Total Protein Albumin Urine Color Yellow Urine Appearance Cloudy Urine pH 5.0 Ur Specific [place] 1.015 Urine Protein Negative Urine Glucose (UA) >=1000 H Urine Ketones Negative Urine Blood Negative Urine Nitrite Negative Ur Leukocyte Esterase Moderate (2+) H Urine RBC 0-2 Urine WBC 11-20 Ur Squamous Epith Cells 3-5 Urine Bacteria 4+ Hyaline Casts 0-2 Urine Yeast Present 05/31/24 05/31/24 05:02 05:44 MCV MCH MCHC RDW Plt Count MPV Immature Gran % (Auto) Neut % (Auto) Lymph % (Auto) [place] % (Auto) Eos % (Auto) Baso % (Auto) Lymph # (Auto) [place] # (Auto) Eos # (Auto) Baso # (Auto) Abs Immat Gran (auto) Absolute Neuts (auto) Absolute Nucleated RBC Nucleated RBC % (auto) ESR Anion Gap 19 Estim Creat Clear Calc 33.9 Estimated GFR 30 POC Glucose 245 H Random Glucose 251 H Lactic Acid Calcium 8.3 L Magnesium 1.3 L* Total Bilirubin 0.2 AST 43 H ALT 15 Alkaline Phosphatase 96 C-Reactive Protein 11.60 H B-Natriuretic Peptide Total Protein 7.3 Albumin 3.3 L Urine Color Urine Appearance Urine pH Ur Specific [place] Urine Protein Urine Glucose (UA) Urine Ketones Urine Blood Urine Nitrite Ur Leukocyte Esterase Urine RBC Urine WBC Ur Squamous Epith Cells Urine Bacteria Hyaline Casts Urine Yeast Assessment and Plan (1) Hypotension: Status: Acute Plan 58 yo F with multiple medical problems presenting for leg weakness and dysuria. Found to have HENRY and hypotension + possible cellulitis/UTI. Will be admitted for further care. 1. Hypotension possibly due to sepsis - see below given 30 cc/kg bolus per ideal weight in the ED -- bp labile from sytolic 70s to 100s -- pt without any significant symptoms given zosyn -- continue the same; give dose of IV vancomcyin now will check CXR will give 2L additional IVF and have ICU evaluate for level of care - pt remained persistently hypotensive despite fluids -- pressors started, pt evaluated by critical care and accept for transfer; sepsis focus exam completed at 11am 2. HENRY likely due to above IVF as above renally dose meds 3. Possible UTI and cellulitis zosyn + vancomcyin f/u cultures 4. COPD and chronic resp failure with hypoxia on her baseline 2L continue baseline meds 5. HypoMg repleted in the ED 6. CHF, unspecified no echo in our system hold diuretics / BP meds fo rnow 7. DM hold oral sliding scale Full Code DVT pptx - heparin pt with suspected sepsis, not responsive to fluids and requiring vasopressors, being transferred to ICU. Quality Stroke Does the patient have a stroke diagnosis?: No VTE Prior VTE?: No VTE Risk Level:: Medical - moderate - high VTE Device Contraindication: N/A - Device Ordered VTE Drug Contraindication: N/A - Med Ordered
--- NOTE | 2024-05-31 10:19 | PC.NURSE ---
pt noted to be hypotensive despite previous IVF boluses. admitting provider notified/aware. 1L bolus of LR infusing via pressure bag at this time. effectiveness pending. otherwise vss and up to date. nsr on the doweling machine operator. pt remains on 2L via NC. no sob/wob noted. respirations even/unlabored.
[2024-05-31] MEDS: Piperacillin Sodium/Tazobactam 2.25 GM in 0.9 % Sodium Chloride 50 ML IV ×3 (10:36→23:49)
[2024-05-31] MEDS: Heparin Sodium,Porcine 5,000 UNIT/ML VIAL 5000 UNIT SUBCUT ×2 (10:36→18:11)
[2024-05-31] MEDS: Doxycycline Hyclate 100 MG in 0.9 % Sodium Chloride 250 ML 166.67 MG IV (10:36)
[2024-05-31] MEDS: Norepinephrine Bitartrate/D5W 8 MG/250 ML PLAST..BAG 7.51 MG IVCONT (11:03)
--- NOTE | 2024-05-31 11:03 | PM.EVENT ---
Event Note Date of Service: 05/31/24 Event Note: Patient is a 58 Y F w/ diabetes mellitus, CHF, COPD c/b chronic hypoxic respiratory failure, and opioid misuse on methadone, presenting initially to emergency department on 05/31 w/ multiple symptoms including fatigue, weakness, and dysuria; in emergency department, work-up suggestive of urinary tract infection, acute renal insufficiency, as well as concern for cellulitis; ICU consulted for hypotension, likely d/t sepsis; plan to admit ICU, vasopressors as needed, continue antibiotics for presumed urinary tract infection, cellulitis, otherwise supportive care Time Spent With Patient Time: Total time managing care of this patient today ____ minutes.
--- NOTE | 2024-05-31 11:05 | PC.NURSE ---
pt remains hypotensive despite all interventions. BPs obtained in all forms including bedside monitor, portable vitals cart, and manual BP. pt still reporting dizziness. otherwise pt remains alert and oriented x 4. neuros intact. answering questions/following commands appropriately. admitting provider notified/aware. hospitalist then came bedside to assess. provider states he will reach out to ICU in regards to pt being evaluated. ED MD ordered for pt to be started on levophed drip. pt started on drip per protocol. will titrate as needed. otherwise vss and up to date. nsr on the monitoring analyst. no sob/wob noted. respirations even/unlabored. plan of care ongoing.
[2024-05-31] MEDS: Albuterol/Iprat 2.5/0.5MG 3 ML AMPUL.NEB INHALE ×3 (11:39→19:49)
--- NOTE | 2024-05-31 11:39 | PC.NURSE ---
pt remains on starting rate of levophed. no need to titrate per protocol at this time d/t BP staying wnl. otherwise vss and up to date. nsr on the executive assistant to general counsel. offered to transfer pt into a hospital bed to promote comfort d/t wound on coccyx. pt declined transfer into a hospital bed. educated pt on importance of wound healing. pt still refusing. will reattempt.
--- NOTE | 2024-05-31 11:46 | PHA.MEDREC ---
Pharmacy Consult ? Medication Reconciliation Pharmacy has completed the medication reconciliation. Spoke with patient at bedside, she was knowledgable about her medications and they matched claims, also had med list from [facility] from 05/24/24 that matched with a small discrepancy for Lantus dose. She said she takes 15 units but they said 16 units. Went with what she said she takes at home.
[2024-05-31] MEDS: Albumin Human 25 % 100 ML IV ×3 (11:59→23:48)
[2024-05-31] MEDS: Calcium Gluconate/NaCl,Iso-Osm 1 GM/50 ML PLAST..BAG IV (12:02)
--- NOTE | 2024-05-31 12:23 | PC.NURSE ---
report given to YONI Mckinney in ICU.
--- NOTE | 2024-05-31 12:44 | PC.NURSE ---
pt transferred to ICU w/ this RN and transport at this time.
[2024-05-31 14:25] LABS: Glucose, Whole Blood 258 mg/dL (60-115)
[2024-05-31] MEDS: vancomycin/NS 2,000 MG/500 ML PLAST..BAG 250 MG IV (14:33)
[2024-05-31] MEDS: Clindamycin Phosphate/D5W 600 MG/50 ML PIGGYBACK 100 MG IV ×2 (14:43→18:30)
--- NOTE | 2024-05-31 14:50 | HE.PHANOTE ---
Re Methadone Pt receives 115mg from [facility] in [place], last dose was 05/03/2024. Will need to restart the titration.
[2024-05-31] MEDS: 0.9 % Sodium Chloride Flush 3 ML SYRINGE IVFLUSH ×2 (15:05→23:49)
--- NOTE | 2024-05-31 15:18 | PHA.PROG ---
Addendum entered by Goran Alejandro [facility] 05/31/24 15:20: NEXT LEVEL 06/02 @ 1200 Original Note: Admission Date/Time: May 31, 2024 10:02 Indication: SKIN Weight in k.6 kg Serum Creatinine - Last 168 Hours 05/31/24 05:44 Creatinine 1.73 H Estimated CrCl and GFR - Last 168 Hours 05/31/24 05:44 Estim Creat Clear Calc 33.9 Estimated GFR 30 Vancomycin Loading Dose: 2000 Current Vancomycin Dosing Regimen: 1000 Q 24H Vancomycin Monitoring using AUC goal of 400 - 600 range with trough as surrogate marker 487: Date and Time for next Vancomycin Level to be drawn: 06/01 @ 1200 Pharmacist Comments on Vancomycin Plan: Vancomycin dosing will take advantage of [employer] as a clinical decision support tool that uses Bayesian modeling to calculate individual patient's pharmacokinetic parameters and forecast the patient's drug concentration time course with the target goal AUC 24 range of 400 - 600 mg/L/hr.
[2024-05-31 16:23] LABS: Glucose, Whole Blood 289 mg/dL (60-115)
[2024-05-31] MEDS: methADONE HCl 20 MG/2 ML ORAL.CONC 60 MG PO (16:47)
[2024-05-31] MEDS: Insulin Lispro 100 UNIT/ML 3 ML VIAL SUBCUT ×2 (16:51→22:22)
[2024-05-31 18:30] LABS: MANUAL DIFF FLAG NO
[2024-05-31 18:43] LABS: Basophils Percent Auto 0.5 % (0-2); Eosinophils Absolute Auto 0.2 X10*3/uL (0.0-0.4); Eosinophils Percent Auto 2.2 % (0-4); Hematocrit 25.6 % (37.0-47.0); Imm Gran Abs Auto 0.09 X10*3/uL (0.00-0.03); Imm Gran Pct Auto 1.2 % (0.0-0.4); Lymphocytes Absolute Auto 1.1 X10*3/uL (1.2-4.9); Lymphocytes Percent Auto 14.3 % (20-40); Mean Corpuscular HGB Conc 31.3 g/dl (31.0-35.0); Mean Corpuscular Hemoglobin 30.1 pg (27.0-33.0); Mean Corpuscular Volume 96.2 fL (80.0-98.0); Mean Platelet Volume 10.4 fL (9.4-12.3); Monocytes Absolute Auto 0.3 X10*3/uL (0.1-1.2); Monocytes Percent Auto 4.4 % (2-11); Neutrophils Percent Auto 77.4 % (45-73); Platelet Count 209 X10*3/uL (160-400); Red Blood Count 2.66 X10*6/uL (4.20-5.50); Red Cell Distribution Width 14.1 % (11.0-16.0); White Blood Count 7.8 X10*3/uL (4.8-10.8)
[2024-05-31 18:51] LABS: Anion Gap 10 (12-20); Blood Urea Nitrogen 35 mg/dL (9-16); Calcium 8.5 mg/dL (8.4-10.2); Carbon Dioxide 26 mmol/L (22-29); Chloride 109 mmol/L (96-108); Creatinine Clr Calc Pharmacy 50.6; Estimated Glomerular Filt Rate 46; Glucose Random 291 mg/dL (60-115); Magnesium 1.4 mg/dL (1.6-2.6); Phosphorus 3.2 mg/dL (2.7-4.5); Potassium 3.6 mmol/L (3.3-5.1); Sodium 141 mmol/L (135-145)
[2024-05-31] MEDS: Potassium Chloride Packet 20 MEQ PACKET PO (19:42)
[2024-05-31] MEDS: Magnesium Sulfate/H2O 2 GM/50 ML PIGGYBACK IV (19:43)
[2024-05-31 22:07] LABS: Glucose, Whole Blood 217 mg/dL (60-115)
[2024-05-31] MEDS: Midodrine HCl 5 MG TABLET PO (23:48)
[2024-06-01] VITALS (25 sets, daily range): BP systolic 95–140; BP diastolic 52–78; PULSE 75–113; RESP 10–17; TEMP 36–37.2; O2SAT 89–99; BMI 36.1
[2024-06-01] MEDS: ondansetron HCL 4 MG/2 ML VIAL IVPUSH (00:23)
[2024-06-01] MEDS: Heparin Sodium,Porcine 5,000 UNIT/ML VIAL 5000 UNIT SUBCUT ×3 (03:37→17:16)
[2024-06-01] MEDS: Clindamycin Phosphate/D5W 600 MG/50 ML PIGGYBACK 100 MG IV ×3 (03:37→20:45)
[2024-06-01 05:39] LABS: MANUAL DIFF FLAG NO
[2024-06-01 05:42] LABS: Basophils Percent Auto 0.4 % (0-2); Eosinophils Absolute Auto 0.2 X10*3/uL (0.0-0.4); Eosinophils Percent Auto 2.7 % (0-4); Hematocrit 25.7 % (37.0-47.0); Hemoglobin 7.9 g/dl (12.0-16.0); Imm Gran Abs Auto 0.06 X10*3/uL (0.00-0.03); Imm Gran Pct Auto 0.9 % (0.0-0.4); Lymphocytes Percent Auto 14.5 % (20-40); Mean Corpuscular HGB Conc 30.7 g/dl (31.0-35.0); Mean Corpuscular Hemoglobin 30.2 pg (27.0-33.0); Mean Corpuscular Volume 98.1 fL (80.0-98.0); Mean Platelet Volume 10.4 fL (9.4-12.3); Monocytes Absolute Auto 0.4 X10*3/uL (0.1-1.2); Monocytes Percent Auto 5.6 % (2-11); Neutrophils Absolute Auto 5.1 x10*3/uL (2.0-8.3); Neutrophils Percent Auto 75.9 % (45-73); Platelet Count 190 X10*3/uL (160-400); Red Blood Count 2.62 X10*6/uL (4.20-5.50); White Blood Count 6.7 X10*3/uL (4.8-10.8)
[2024-06-01] MEDS: Piperacillin Sodium/Tazobactam 2.25 GM in 0.9 % Sodium Chloride 50 ML IV ×3 (05:57→17:12)
[2024-06-01 06:23] LABS: Anion Gap 13 (12-20); Blood Urea Nitrogen 24 mg/dL (9-16); Calcium 9.2 mg/dL (8.4-10.2); Carbon Dioxide 26 mmol/L (22-29); Chloride 109 mmol/L (96-108); Creatinine Clr Calc Pharmacy 65.2; Estimated Glomerular Filt Rate > 60; Glucose Random 217 mg/dL (60-115); Magnesium 1.8 mg/dL (1.6-2.6); Phosphorus 3.2 mg/dL (2.7-4.5); Potassium 3.7 mmol/L (3.3-5.1); Sodium 144 mmol/L (135-145)
[2024-06-01 07:46] LABS: Glucose, Whole Blood 209 mg/dL (60-115)
[2024-06-01] MEDS: Albuterol/Iprat 2.5/0.5MG 3 ML AMPUL.NEB INHALE ×4 (07:52→19:50)
[2024-06-01] MEDS: methADONE HCl 20 MG/2 ML ORAL.CONC 115 MG PO (07:57)
[2024-06-01] MEDS: Aspirin 81 MG TAB.CHEW PO (08:00)
[2024-06-01] MEDS: 0.9 % Sodium Chloride Flush 3 ML SYRINGE IVFLUSH ×3 (08:02→20:49)
[2024-06-01] MEDS: Nicotine 21 MG PATCH.TD24 TRANSDERMA (08:02)
[2024-06-01] MEDS: Insulin Lispro 100 UNIT/ML 3 ML VIAL SUBCUT ×4 (08:03→22:37)
--- NOTE | 2024-06-01 08:14 | PM.CCPN ---
Subjective Subjective Date of Service: 06/01/24 Interval History: no significant overnight events Critical Care Time (minutes): 60 Physical Exam Vital Signs: Vital Signs: Last Vital Signs Temp 98.4 F 06/01/24 04:00 Pulse 110 H 06/01/24 07:52 Resp 12 06/01/24 07:52 BP 117/64 06/01/24 07:00 Pulse Ox 94 06/01/24 06:00 O2 Del Method Nasal Cannula 06/01/24 07:00 O2 Flow Rate 2 06/01/24 07:00 FiO2 30 05/31/24 21:00 Oxygen Flow Rate 2 05/31/24 03:55 BMI result Body Mass Index 36.1 Const: General: cooperative, healthy appearing, comfortable, no acute distress, well developed, alert, awake and Physically active Orientation/consciousness: patient oriented x3 HEENT: Head: Yes normal to inspection, Yes normocephalic and Yes atraumatic Eyes: General: appearance normal, both eyes and all related structures Neck: Neck: Yes normal visual inspection, Yes full ROM, Yes no meningeal signs, Yes trachea midline and Yes supple Chest: Chest palpation & inspection: normal inspection of the chest Resp: Other: no appreciable rales, rhonchi, wheezing Effort & Inspection: normal respiratory effort Cardio: Rate: regular rate Rhythm: regular rhythm GI: Inspection: Yes normal to inspection, No Abdominal wall edema and No distended Palpation (GI): Soft to palpation, not firm, nontender, no guarding and not rigid Skin: Other: appreciable bilateral lower extremity mild erythema; no appreciable fluctuance, induration, purulence Neuro: General: patient oriented x3, tone normal, moves all extremities, no meningeal signs and no focal motor deficits Extrem: General: Yes normal to inspection, Yes full ROM, Yes capillary refill normal and Yes no clubbing, cyanosis or edema Psych: Appearance: grossly normal Objective Data Labs 06/01/24 05:02 06/01/24 05:02 Labs: Laboratory Results - last 24 hr 05/31/24 05/31/24 05/31/24 11:15 14:23 16:19 WBC RBC Hgb Hct MCV MCH MCHC RDW Plt Count MPV Immature Gran % (Auto) Neut % (Auto) Lymph % (Auto) [place] % (Auto) Eos % (Auto) Baso % (Auto) Lymph # (Auto) [place] # (Auto) Eos # (Auto) Baso # (Auto) Abs Immat Gran (auto) Absolute Neuts (auto) Absolute Nucleated RBC Nucleated RBC % (auto) Sodium Potassium Chloride Carbon Dioxide Anion Gap BUN Creatinine Estim Creat Clear Calc Estimated GFR POC Glucose 258 H 289 H Random Glucose Lactic Acid 1.0 Calcium Phosphorus Magnesium 05/31/24 05/31/24 06/01/24 18:17 22:03 05:02 WBC 7.8 6.7 RBC 2.66 L 2.62 L Hgb 8.0 L 7.9 L Hct 25.6 L 25.7 L MCV 96.2 98.1 H MCH 30.1 30.2 MCHC 31.3 30.7 L RDW 14.1 14.0 Plt Count 209 190 MPV 10.4 10.4 Immature Gran % (Auto) 1.2 H 0.9 H Neut % (Auto) 77.4 H 75.9 H Lymph % (Auto) 14.3 L 14.5 L [place] % (Auto) 4.4 5.6 Eos % (Auto) 2.2 2.7 Baso % (Auto) 0.5 0.4 Lymph # (Auto) 1.1 L 1.0 L [place] # (Auto) 0.3 0.4 Eos # (Auto) 0.2 0.2 Baso # (Auto) 0.0 0.0 Abs Immat Gran (auto) 0.09 H 0.06 H Absolute Neuts (auto) 6.0 5.1 Absolute Nucleated RBC 0.000 0.000 Nucleated RBC % (auto) 0.0 0.0 Sodium 141 144 Potassium 3.6 3.7 Chloride 109 H 109 H Carbon Dioxide 26 26 Anion Gap 10 L 13 BUN 35 H 24 H Creatinine 1.21 0.94 Estim Creat Clear Calc 50.6 65.2 Estimated GFR 46 > 60 POC Glucose 217 H Random Glucose 291 H 217 H Lactic Acid Calcium 8.5 9.2 D Phosphorus 3.2 3.2 Magnesium 1.4 L* 1.8 06/01/24 07:42 WBC RBC Hgb Hct MCV MCH MCHC RDW Plt Count MPV Immature Gran % (Auto) Neut % (Auto) Lymph % (Auto) [place] % (Auto) Eos % (Auto) Baso % (Auto) Lymph # (Auto) [place] # (Auto) Eos # (Auto) Baso # (Auto) Abs Immat Gran (auto) Absolute Neuts (auto) Absolute Nucleated RBC Nucleated RBC % (auto) Sodium Potassium Chloride Carbon Dioxide Anion Gap BUN Creatinine Estim Creat Clear Calc Estimated GFR POC Glucose 209 H Random Glucose Lactic Acid Calcium Phosphorus Magnesium Microbiology Microbiology Results: Microbiology 05/31/24 04:25 Blood - Venous Blood Culture - Preliminary No growth after 24 hours. 05/31/24 04:25 Blood - Venous Blood Culture - Preliminary No growth after 24 hours. Progress Note: A&P Assessment and plan (1) Sepsis: Status: Acute (2) UTI (urinary tract infection): Status: Acute Plan Patient is a 58 Y F w/ diabetes mellitus, CHF, COPD c/b chronic hypoxic respiratory failure, and opioid misuse on methadone, presenting initially to emergency department on 05/31 w/ multiple symptoms including fatigue, weakness, and dysuria; in emergency department, work-up suggestive of urinary tract infection, acute renal insufficiency, as well as concern for cellulitis; ICU consulted for hypotension, likely d/t sepsis N: no acute issues CV: hypotension, likey d/t sepsis, s/p norepinephrine gtt, improved; CHF R: no acute issues, COPD c/b chronic hypoxic respiratory failure GI: no acute issues; diabetic diet : acute renal insufficiency, improving; to monitor renal indices, electrolytes closely H: no acute issues; chemical DVT prophylaxis w/ heparin SQ ID: c/f urinary tract infection, cellulitis; empiric vancomycin, zosyn, clindamycin; to follow-up UCx, BCx 05/31 E: diabetes mellitus, insulin sliding scale P: opioid misuse on home methadone Quality Stroke Does the patient have a stroke diagnosis?: No Reason for No Anti-thrombotic by Day Two: Not indicated VTE Prior VTE?: No VTE Risk Level:: Medical - moderate - high VTE Device Contraindication: N/A - Device Ordered VTE Drug Contraindication: N/A - Med Ordered
[2024-06-01 11:48] LABS: Glucose, Whole Blood 203 mg/dL (60-115)
--- NOTE | 2024-06-01 12:51 | MHC.CM.PN ---
Pt admitted to ICU for pressor support: pt resides at home with son who is also her compensated [employer]. She has [facility] for skilled RN visits and receives Methadone - [facility] - pt is vague about this. HCP on file: unknown if pt will require STR or be able to return to home w/existing services. Re-referred to [facility]. Son to transport pt to home vs BLS (depending on son and pts medical condition)
[2024-06-01] MEDS: vancomycin HCL 1,000 MG in 0.9 % Sodium Chloride 250 ML 270 MG IV (13:13)
[2024-06-01 13:18] LABS: Glucose, Whole Blood 212 mg/dL (60-115)
[2024-06-01] MEDS: Ondansetron ODT 4 MG TAB.RAPDIS TRANSLINGU ×2 (14:25→20:45)
[2024-06-01] MEDS: Acetaminophen 325 MG TABLET 650 MG PO ×2 (15:57→22:37)
[2024-06-01 16:30] LABS: Glucose, Whole Blood 223 mg/dL (60-115)
--- NOTE | 2024-06-01 17:16 | PM.EVENT ---
Event Note Date of Service: 06/01/24 Event Note: The is a 58-year-old female with a past medical history of diabetes mellitus, COPD and chronic respiratory failure with hypoxia, CHF, chronic opiate dependence on methadone, and others who presented to [facility] with a several day history of poor oral intake, dysuria and worsening right lower extremity pain/weakness. The patient reports that she was hospitalized at [facility] for several weeks where she was treated for COPD, sepsis, respiratory failure requiring mechanical ventilation. She reports that she was discharged 3 days prior to this hospitalization and since being home she has continued to worsen. She reports that she has had a decreased appetite and oral intake but denies abdominal pain, nausea, vomiting. She reports right leg pain and weakness which have been persistent since her [facility] hospitalization. She reports worsening erythema bilaterally. Upon further questioning, she endorses urinary frequency and dysuria of 2 days' duration. She denies any flank pain. Patient reports subjective fevers without chills. She denies EtOh/substance use (prior documentation shows polysubstance use) In the emergency room, the patient was found to have a UA concerning for urinary tract infection. Furthermore, she has bilateral lower extremity erythema, warmth, tenderness as well as skin breakdown/erythema of the buttock region. She was found to have acute kidney injury with a serum creatinine of 1.7, baseline is around 0.7. Mag is low at 1.3. She was also hypotensive in the 80s to 90s systolic. She has been given a 30 cc/kg bolus, IV Zosyn, IV magnesium, IV Zofran and admission has been requested. She was briefly admitted to the hospitalist service. shortly after admission, her blood pressure remained persistently low and she was subsequently transferred to the ICU for vasopressor support. She was downgraded to the medical floor 06/01 after being successfully weaned off of pressors septic shock due to UTI and cellulitis given 30 cc/kg bolus per ideal weight in the ED. s/p pressors in ICU continue IV vancomcyin, zosyn and also clindamycin added in ICU bp meds placed on hold, resume as bp allows HENRY likely due to above IVF as above renally dose meds Possible UTI and cellulitis zosyn + vancomcyin, clindamycin urine culture pending blood cultures negative to date acute on chronic anemia no acute blood loss likely due to sepsis currently above transfusion threshold follow CBC OUD continue baseline methadone COPD/chronic resp failure with hypoxia on her baseline 2L continue baseline meds HypoMg repleted in the ED CHF, unspecified no echo in our system hold diuretics / BP meds for now hold farxiga tobacco use disorder NRT DM hold metformin sliding scale continue gabapentin as appropriate, on hold for now mood meds held in ICU can likely be resumed in am Full Code DVT pptx - heparin Time Spent With Patient Time: Total time managing care of this patient today ____ minutes.
[2024-06-01] MEDS: LORazepam 1 MG TABLET PO (20:45)
[2024-06-01 21:14] LABS: Glucose, Whole Blood 154 mg/dL (60-115)
[2024-06-01] MEDS: traZODone HCL 50 MG TABLET PO (22:37)
[2024-06-01] MEDS: Nystatin Powder 15 GM BOTTLE 1 APPL TOPICAL (22:40)
[2024-06-02] VITALS (9 sets, daily range): BP systolic 117–154; BP diastolic 57–74; PULSE 59–118; RESP 16–20; TEMP 35.7–37; O2SAT 92–96
[2024-06-02] MEDS: Piperacillin Sodium/Tazobactam 2.25 GM in 0.9 % Sodium Chloride 50 ML IV ×4 (00:49→18:46)
[2024-06-02] MEDS: Heparin Sodium,Porcine 5,000 UNIT/ML VIAL 5000 UNIT SUBCUT ×3 (00:56→18:48)
[2024-06-02] MEDS: Clindamycin Phosphate/D5W 600 MG/50 ML PIGGYBACK 100 MG IV ×2 (04:02→10:51)
[2024-06-02] MEDS: Omeprazole 40 MG CAPSULE.DR PO (06:04)
[2024-06-02] MEDS: Ondansetron ODT 4 MG TAB.RAPDIS TRANSLINGU ×2 (06:04→15:59)
[2024-06-02] MEDS: Albuterol/Iprat 2.5/0.5MG 3 ML AMPUL.NEB INHALE ×3 (08:05→19:39)
[2024-06-02 08:07] LABS: Glucose, Whole Blood 234 mg/dL (60-115)
[2024-06-02] MEDS: Folic Acid 1 MG TABLET PO (08:12)
[2024-06-02] MEDS: Magnesium Oxide 400 MG TABLET PO (08:12)
[2024-06-02] MEDS: Aspirin 81 MG TAB.CHEW PO (08:12)
[2024-06-02] MEDS: Sertraline HCL 50 MG TABLET PO (08:12)
[2024-06-02] MEDS: Thiamine HCL 100 MG TABLET PO (08:12)
[2024-06-02] MEDS: hydrOXYzine HCL 25 MG TABLET PO (08:12)
[2024-06-02] MEDS: methADONE HCl 20 MG/2 ML ORAL.CONC 115 MG PO (08:13)
[2024-06-02] MEDS: Insulin Lispro 100 UNIT/ML 3 ML VIAL SUBCUT ×4 (08:13→21:04)
[2024-06-02] MEDS: Nicotine 21 MG PATCH.TD24 TRANSDERMA (08:14)
[2024-06-02] MEDS: 0.9 % Sodium Chloride Flush 3 ML SYRINGE IVFLUSH ×3 (08:14→20:57)
[2024-06-02] MEDS: Nystatin Powder 15 GM BOTTLE 1 APPL TOPICAL ×2 (10:52→21:02)
[2024-06-02 11:53] LABS: MANUAL DIFF FLAG NO
[2024-06-02 11:57] LABS: Basophils Percent Auto 0.4 % (0-2); Eosinophils Percent Auto 0.4 % (0-4); Hemoglobin 8.5 g/dl (12.0-16.0); Imm Gran Abs Auto 0.14 X10*3/uL (0.00-0.03); Imm Gran Pct Auto 1.6 % (0.0-0.4); Lymphocytes Absolute Auto 1.1 X10*3/uL (1.2-4.9); Lymphocytes Percent Auto 12.1 % (20-40); Mean Corpuscular HGB Conc 31.5 g/dl (31.0-35.0); Mean Corpuscular Hemoglobin 30.2 pg (27.0-33.0); Mean Corpuscular Volume 96.1 fL (80.0-98.0); Mean Platelet Volume 9.9 fL (9.4-12.3); Monocytes Absolute Auto 0.5 X10*3/uL (0.1-1.2); Monocytes Percent Auto 5.1 % (2-11); Neutrophils Absolute Auto 7.2 x10*3/uL (2.0-8.3); Neutrophils Percent Auto 80.4 % (45-73); Platelet Count 211 X10*3/uL (160-400); Red Blood Count 2.81 X10*6/uL (4.20-5.50); Red Cell Distribution Width 13.9 % (11.0-16.0)
[2024-06-02 11:58] LABS: Glucose, Whole Blood 195 mg/dL (60-115)
[2024-06-02 12:09] LABS: Vancomycin Trough 11.4 mcg/mL (10.0-20.0)
[2024-06-02 12:13] LABS: Anion Gap 15 (12-20); Blood Urea Nitrogen 11 mg/dL (9-16); Calcium 9.2 mg/dL (8.4-10.2); Carbon Dioxide 26 mmol/L (22-29); Chloride 102 mmol/L (96-108); Creatinine Clr Calc Pharmacy 81.7; Estimated Glomerular Filt Rate > 60; Glucose Random 210 mg/dL (60-115); Phosphorus 2.8 mg/dL (2.7-4.5); Potassium 3.5 mmol/L (3.3-5.1); Sodium 139 mmol/L (135-145)
--- NOTE | 2024-06-02 12:16 | HO.PM.IMPN ---
Subjective Subjective Date of Service: 06/02/24 Review of Systems Follow up UTI feeling better no pain or discomfort Physical Exam Vital Signs: Vital Signs: Last Vital Signs Temp 97.6 F 06/02/24 08:00 Pulse 95 06/02/24 11:47 Resp 20 06/02/24 11:47 BP 132/71 06/02/24 08:00 Pulse Ox 96 06/02/24 08:00 O2 Del Method Nasal Cannula 06/02/24 08:00 O2 Flow Rate 2 06/02/24 08:00 FiO2 30 05/31/24 21:00 Oxygen Flow Rate 2 05/31/24 03:55 BMI result Body Mass Index 36.1 Appearing in no acute distress lung sounds are clear to auscultation heart regular rate rhythm, clear S1, S2 positive bowel sounds, abdomen is soft, nontender neuro patient is alert x3, no focal deficits Objective Data Active Medications Acetaminophen (Acetaminophen 325 Mg Tablet) 650 mg PO Q6H PRN PRN Reason: Pain, Moderate(Pain Scale 4-6) Last Admin: 06/01/24 22:37 Dose: 650 mg Documented By: CHELA Albuterol/Ipratropium (Albuterol/Iprat 2.5/0.5mg 3 Ml Ampul.Neb) 3 ml INHALE RQ4H WHILE AWAKE [facility] Last Admin: 06/02/24 11:42 Dose: 3 ml Documented By: ROXANNE Aspirin (Aspirin 81 Mg Tab.Chew) 81 mg PO DAILY [facility] Last Admin: 06/02/24 08:12 Dose: 81 mg Documented By: MARLEE Folic Acid (Folic Acid 1 Mg Tablet) 1 mg PO DAILY [facility] Last Admin: 06/02/24 08:12 Dose: 1 mg Documented By: MARLEE Heparin Sodium (Porcine) (Heparin Sodium,Porcine 5,000 Unit/Ml Vial) 5,000 unit SUBCUT Q8H [facility] Last Admin: 06/02/24 10:51 Dose: 5,000 unit Documented By: MARLEE Clindamycin Phosphate (Cleocin) 600 mg in 50 mls @ 100 mls/hr IV Q8H [facility] Last Admin: 06/02/24 10:51 Dose: 100 mls/hr Documented By: MARLEE Vancomycin HCl 1,000 mg/ (Sodium Chloride) 270 mls @ 270 mls/hr IV Q24H [facility] Last Infusion: 06/01/24 14:26 Dose: Infused Documented By: JOSE LUIS Piperacillin Sod/Tazobactam (Sod 2.25 gm/ Sodium Chloride) 50 mls @ 100 mls/hr IV Q6H [facility] Last Infusion: 06/02/24 06:09 Dose: 0 mls/hr Documented By: CHELA Insulin Human Lispro (Insulin Lispro 100 Unit/Ml 3 Ml Vial) 0 unit SUBCUT QIDACHS [facility]; Protocol Last Admin: 06/02/24 08:13 Dose: 4 unit Documented By: MARLEE Magnesium Oxide (Magnesium Oxide 400 Mg Tablet) 400 mg PO DAILY@0730 [facility] Last Admin: 06/02/24 08:12 Dose: 400 mg Documented By: MARLEE Methadone HCl (Methadone Hcl 20 Mg/2 Ml Oral.Conc) 115 mg PO DAILY@0800 [facility] Last Admin: 06/02/24 08:13 Dose: 115 mg Documented By: MARLEE Co-signed By: SHAZIA Nicotine (Nicotine 21 Mg Patch.Td24) 21 mg TRANSDERMA DAILY [facility] Last Admin: 06/02/24 08:14 Dose: 21 mg Documented By: MARLEE Nystatin (Nystatin Powder 15 Gm Bottle) 1 appl TOPICAL BID [facility]; Protocol Last Admin: 06/02/24 10:52 Dose: 1 appl Documented By: MARLEE Omeprazole (Omeprazole 40 Mg Capsule.Dr) 40 mg PO DAILY@0630 [facility] Last Admin: 06/02/24 06:04 Dose: 40 mg Documented By: CHELA Ondansetron HCl (Ondansetron Odt 4 Mg Tab.Rapdis) 4 mg TRANSLINGU Q6H PRN PRN Reason: Nausea and Vomiting Last Admin: 06/02/24 06:04 Dose: 4 mg Documented By: CHELA Pharmacy Consult (Consult Rx Vancomycin Dosing) 1 each MISCELLANE DAILY PRN PRN Reason: Consult order Sertraline HCl (Sertraline Hcl 50 Mg Tablet) 50 mg PO DAILY [facility] Last Admin: 06/02/24 08:12 Dose: 50 mg Documented By: MARLEE Sodium Chloride (0.9 % Sodium Chloride Flush 3 Ml Syringe) [facility] Last Admin: 06/02/24 08:14 Dose: 3 ml Documented By: MARLEE Thiamine HCl (Thiamine Hcl 100 Mg Tablet) 100 mg PO DAILY [facility] Last Admin: 06/02/24 08:12 Dose: 100 mg Documented By: MARLEE Trazodone HCl (Trazodone Hcl 50 Mg Tablet) 50 mg PO BEDTIME PRN PRN Reason: Insomnia Last Admin: 06/01/24 22:37 Dose: 50 mg Documented By: CHELA Labs 06/02/24 11:46 06/02/24 11:46 Labs: Laboratory Results - last 24 hr 06/01/24 06/01/24 06/01/24 13:14 16:27 21:10 MCV MCH MCHC RDW Plt Count MPV Immature Gran % (Auto) Neut % (Auto) Lymph % (Auto) [place] % (Auto) Eos % (Auto) Baso % (Auto) Lymph # (Auto) [place] # (Auto) Eos # (Auto) Baso # (Auto) Abs Immat Gran (auto) Absolute Neuts (auto) Absolute Nucleated RBC Nucleated RBC % (auto) Anion Gap Estim Creat Clear Calc Estimated GFR POC Glucose 212 H 223 H 154 H Random Glucose Calcium Phosphorus Vancomycin Trough 06/02/24 06/02/24 06/02/24 08:03 11:46 11:53 MCV 96.1 MCH 30.2 MCHC 31.5 RDW 13.9 Plt Count 211 MPV 9.9 Immature Gran % (Auto) 1.6 H Neut % (Auto) 80.4 H Lymph % (Auto) 12.1 L [place] % (Auto) 5.1 Eos % (Auto) 0.4 Baso % (Auto) 0.4 Lymph # (Auto) 1.1 L [place] # (Auto) 0.5 Eos # (Auto) 0.0 Baso # (Auto) 0.0 Abs Immat Gran (auto) 0.14 H Absolute Neuts (auto) 7.2 Absolute Nucleated RBC 0.000 Nucleated RBC % (auto) 0.0 Anion Gap 15 Estim Creat Clear Calc 81.7 Estimated GFR > 60 POC Glucose 234 H 195 H Random Glucose 210 H Calcium 9.2 Phosphorus 2.8 Vancomycin Trough 11.4 Microbiology Microbiology Results: Microbiology 05/31/24 Unknown Urine Culture - Preliminary Urine clean catch - Clean Catch Midstream Gram negative lloyd 05/31/24 04:25 Blood Culture - Preliminary Blood - Venous No growth after 48 hours. 05/31/24 04:25 Blood Culture - Preliminary Blood - Venous No growth after 48 hours. Assessment and Plan (1) Hypertension: Status: Acute Plan The is a 58-year-old female with a past medical history of diabetes mellitus, COPD and chronic respiratory failure with hypoxia, CHF, chronic opiate dependence on methadone, and others who presented to [facility] with a several day history of poor oral intake, dysuria and worsening right lower extremity pain/weakness. The patient reports that she was hospitalized at [facility] for several weeks where she was treated for COPD, sepsis, respiratory failure requiring mechanical ventilation. She reports that she was discharged 3 days prior to this hospitalization and since being home she has continued to worsen. She reports that she has had a decreased appetite and oral intake but denies abdominal pain, nausea, vomiting. She reports right leg pain and weakness which have been persistent since her [facility] hospitalization. She reports worsening erythema bilaterally. Upon further questioning, she endorses urinary frequency and dysuria of 2 days' duration. She denies any flank pain. Patient reports subjective fevers without chills. She denies EtOh/substance use (prior documentation shows polysubstance use) In the emergency room, the patient was found to have a UA concerning for urinary tract infection. Furthermore, she has bilateral lower extremity erythema, warmth, tenderness as well as skin breakdown/erythema of the buttock region. She was found to have acute kidney injury with a serum creatinine of 1.7, baseline is around 0.7. Mag is low at 1.3. She was also hypotensive in the 80s to 90s systolic. She has been given a 30 cc/kg bolus, IV Zosyn, IV magnesium, IV Zofran and admission has been requested. She was briefly admitted to the hospitalist service. shortly after admission, her blood pressure remained persistently low and she was subsequently transferred to the ICU for vasopressor support. She was downgraded to the medical floor 06/01 after being successfully weaned off of pressors septic shock due to UTI and cellulitisgiven 30 cc/kg bolus per ideal weight in the ED. s/p pressors in ICU continue IV vancomcyin, zosyn and also clindamycin added in ICU bp meds placed on hold, resume as bp allows Hypomag Replete HENRY. Resolved likely due to above IVF as above renally dose meds GNR UTI zosyn urine culture pending blood cultures negative to date acute on chronic anemia no acute blood loss likely due to sepsis currently above transfusion threshold follow CBC OUD continue baseline methadone COPD/chronic resp failure with hypoxia on her baseline 2L continue baseline meds HypoMg repleted in the ED CHF, unspecified no echo in our system hold diuretics / BP meds for now hold farxiga tobacco use disorder NRT DM hold metformin sliding scale continue gabapentin as appropriate, on hold for now mood meds held in ICU can likely be resumed in am Full Code DVT pptx - heparin Quality Stroke Does the patient have a stroke diagnosis?: No Reason for No Anti-thrombotic by Day Two: Not indicated VTE Prior VTE?: No VTE Risk Level:: Medical - moderate - high VTE Device Contraindication: N/A - Device Ordered VTE Drug Contraindication: N/A - Med Ordered
--- NOTE | 2024-06-02 12:28 | HE.PHANOTE ---
RE VANCO DUE TO IMPROVING RENAL FUNCTION, WILL INCREASE DOSE OF VANCO FROM 1000 Q24 HOURS TO 1500 Q24 HOURS. WILL RECHECK LEVEL AGAIN 06/03/24 @110 AFTER ANOTHER DOSE IS GIVEN.
[2024-06-02 12:30] LABS: Magnesium 1.2 mg/dL (1.6-2.6)
[2024-06-02] MEDS: vancomycin HCL 1,500 MG in 0.9 % Sodium Chloride 500 ML 333.33 MG IV (13:47)
[2024-06-02] MEDS: Furosemide 40 MG TABLET PO (13:50)
[2024-06-02] MEDS: QUEtiapine Fumarate 25 MG TABLET 12.5 MG PO (13:54)
[2024-06-02] MEDS: Acetaminophen 325 MG TABLET 650 MG PO ×2 (13:56→21:33)
[2024-06-02] MEDS: Gabapentin 300 MG CAPSULE PO ×2 (15:55→20:55)
[2024-06-02 16:25] LABS: Glucose, Whole Blood 199 mg/dL (60-115)
[2024-06-02 20:35] LABS: Glucose, Whole Blood 198 mg/dL (60-115)
[2024-06-02] MEDS: traZODone HCL 50 MG TABLET PO ×2 (20:54→20:55)
[2024-06-02] MEDS: Prazosin HCL 1 MG CAPSULE PO (20:55)
[2024-06-02] MEDS: Insulin Glargine,Hum.rec.anlog 100 UNIT/ML 10 ML VIAL 15 UNIT SUBCUT (21:03)
[2024-06-03] VITALS (9 sets, daily range): BP systolic 101–128; BP diastolic 51–73; PULSE 73–105; RESP 10–18; TEMP 36.1–37; O2SAT 92–99
[2024-06-03] MEDS: Piperacillin Sodium/Tazobactam 2.25 GM in 0.9 % Sodium Chloride 50 ML IV ×4 (00:46→18:46)
[2024-06-03] MEDS: Heparin Sodium,Porcine 5,000 UNIT/ML VIAL 5000 UNIT SUBCUT ×3 (01:17→18:46)
[2024-06-03] MEDS: Omeprazole 40 MG CAPSULE.DR PO (06:19)
[2024-06-03 07:47] LABS: Glucose, Whole Blood 188 mg/dL (60-115)
[2024-06-03] MEDS: Albuterol/Iprat 2.5/0.5MG 3 ML AMPUL.NEB INHALE ×3 (08:02→19:33)
[2024-06-03] MEDS: Insulin Lispro 100 UNIT/ML 3 ML VIAL SUBCUT ×4 (08:43→21:26)
[2024-06-03] MEDS: methADONE HCl 20 MG/2 ML ORAL.CONC 115 MG PO (08:46)
[2024-06-03] MEDS: Furosemide 40 MG TABLET PO (08:48)
[2024-06-03] MEDS: Gabapentin 300 MG CAPSULE PO ×3 (08:48→21:24)
[2024-06-03] MEDS: Thiamine HCL 100 MG TABLET PO (08:49)
[2024-06-03] MEDS: Sertraline HCL 50 MG TABLET PO (08:49)
[2024-06-03] MEDS: Magnesium Oxide 400 MG TABLET PO (08:49)
[2024-06-03] MEDS: Folic Acid 1 MG TABLET PO (08:49)
[2024-06-03] MEDS: Metoprolol Succinate ER 25 MG TAB.ER.24H PO (08:49)
[2024-06-03] MEDS: Aspirin 81 MG TAB.CHEW PO (08:49)
[2024-06-03] MEDS: Nicotine 21 MG PATCH.TD24 TRANSDERMA (08:50)
[2024-06-03] MEDS: Valsartan 40 MG TABLET 20 MG PO (08:51)
[2024-06-03] MEDS: 0.9 % Sodium Chloride Flush 3 ML SYRINGE IVFLUSH ×3 (08:52→21:27)
[2024-06-03] MEDS: Nystatin Powder 15 GM BOTTLE 1 APPL TOPICAL ×2 (08:58→21:27)
--- NOTE | 2024-06-03 10:16 | HO.PM.IMPN ---
Subjective Subjective Date of Service: 06/03/24 Review of Systems Follow up UTI feeling better no pain or discomfort Physical Exam Vital Signs: Vital Signs: Last Vital Signs Temp 98.1 F 06/03/24 08:00 Pulse 86 06/03/24 08:05 Resp 18 06/03/24 08:05 BP 114/54 L 06/03/24 08:00 Pulse Ox 93 06/03/24 08:00 O2 Del Method Nasal Cannula 06/03/24 08:00 O2 Flow Rate 2 06/03/24 08:00 FiO2 30 05/31/24 21:00 Oxygen Flow Rate 2 05/31/24 03:55 BMI result Body Mass Index 36.1 Appearing in no acute distress lung sounds are clear to auscultation heart regular rate rhythm, clear S1, S2 positive bowel sounds, abdomen is soft, nontender neuro patient is alert x3, no focal deficits Objective Data Active Medications Acetaminophen (Acetaminophen 325 Mg Tablet) 650 mg PO Q6H PRN PRN Reason: Pain, Moderate(Pain Scale 4-6) Last Admin: 06/02/24 21:33 Dose: 650 mg Documented By: RENÉ Comments: pt requested Albuterol/Ipratropium (Albuterol/Iprat 2.5/0.5mg 3 Ml Ampul.Neb) 3 ml INHALE RQ4H WHILE AWAKE [facility] Last Admin: 06/03/24 08:02 Dose: 3 ml Documented By: ROXANNE Aspirin (Aspirin 81 Mg Tab.Chew) 81 mg PO DAILY [facility] Last Admin: 06/03/24 08:49 Dose: 81 mg Documented By: LUIS Folic Acid (Folic Acid 1 Mg Tablet) 1 mg PO DAILY [facility] Last Admin: 06/03/24 08:49 Dose: 1 mg Documented By: LUIS Furosemide (Furosemide 40 Mg Tablet) 40 mg PO DAILY [facility]; Protocol Last Admin: 06/03/24 08:48 Dose: 40 mg Documented By: LUIS Gabapentin (Gabapentin 300 Mg Capsule) 300 mg PO TID [facility] Last Admin: 06/03/24 08:48 Dose: 300 mg Documented By: LUIS Heparin Sodium (Porcine) (Heparin Sodium,Porcine 5,000 Unit/Ml Vial) 5,000 unit SUBCUT Q8H [facility] Last Admin: 06/03/24 01:17 Dose: 5,000 unit Documented By: RENÉ Piperacillin Sod/Tazobactam (Sod 2.25 gm/ Sodium Chloride) 50 mls @ 100 mls/hr IV Q6H [facility] Last Infusion: 06/03/24 07:10 Dose: Infused Documented By: RENÉ Insulin Glargine (Insulin Glargine,Hum.Rec.Anlog 100 Unit/Ml 10 Ml Vial) 15 unit SUBCUT BEDTIME [facility] Last Admin: 06/02/24 21:03 Dose: 15 unit Documented By: RENÉ Insulin Human Lispro (Insulin Lispro 100 Unit/Ml 3 Ml Vial) 0 unit SUBCUT QIDACHS [facility]; Protocol Last Admin: 06/03/24 08:43 Dose: 2 unit Documented By: LUIS Magnesium Oxide (Magnesium Oxide 400 Mg Tablet) 400 mg PO DAILY@0730 [facility] Last Admin: 06/03/24 08:49 Dose: 400 mg Documented By: LUIS Methadone HCl (Methadone Hcl 20 Mg/2 Ml Oral.Conc) 115 mg PO DAILY@0800 [facility] Last Admin: 06/03/24 08:46 Dose: 115 mg Documented By: LUIS Co-signed By: RAINE Metoprolol Succinate (Metoprolol Succinate Er 25 Mg Tab.Er.24h) 25 mg PO DAILY [facility]; Protocol Last Admin: 06/03/24 08:49 Dose: 25 mg Documented By: LUIS Nicotine (Nicotine 21 Mg Patch.Td24) 21 mg TRANSDERMA DAILY [facility] Last Admin: 06/03/24 08:50 Dose: 21 mg Documented By: LUIS Nystatin (Nystatin Powder 15 Gm Bottle) 1 appl TOPICAL BID [facility]; Protocol Last Admin: 06/03/24 08:58 Dose: 1 appl Documented By: LUIS Omeprazole (Omeprazole 40 Mg Capsule.Dr) 40 mg PO DAILY@0630 [facility] Last Admin: 06/03/24 06:19 Dose: 40 mg Documented By: RENÉ Ondansetron HCl (Ondansetron Odt 4 Mg Tab.Rapdis) 4 mg TRANSLINGU Q6H PRN PRN Reason: Nausea and Vomiting Last Admin: 06/02/24 15:59 Dose: 4 mg Documented By: MARLEE Pharmacy Consult (Consult Rx Vancomycin Dosing) 1 each MISCELLANE DAILY PRN PRN Reason: Consult order Prazosin HCl (Prazosin Hcl 1 Mg Capsule) 1 mg PO BEDTIME [facility]; Protocol Last Admin: 06/02/24 20:55 Dose: 1 mg Documented By: RENÉ Quetiapine Fumarate (Quetiapine Fumarate 25 Mg Tablet) 12.5 mg PO Q4H PRN PRN Reason: anxiety Last Admin: 06/02/24 13:54 Dose: 12.5 mg Documented By: MARLEE Sertraline HCl (Sertraline Hcl 50 Mg Tablet) 50 mg PO DAILY [facility] Last Admin: 06/03/24 08:49 Dose: 50 mg Documented By: LUIS Sodium Chloride (0.9 % Sodium Chloride Flush 3 Ml Syringe) [facility] Last Admin: 06/03/24 08:52 Dose: 3 ml Documented By: LUIS Thiamine HCl (Thiamine Hcl 100 Mg Tablet) 100 mg PO DAILY [facility] Last Admin: 06/03/24 08:49 Dose: 100 mg Documented By: LUIS Trazodone HCl (Trazodone Hcl 50 Mg Tablet) 50 mg PO BEDTIME PRN PRN Reason: Insomnia Last Admin: 06/02/24 20:54 Dose: 50 mg Documented By: RENÉ Trazodone HCl (Trazodone Hcl 50 Mg Tablet) 50 mg PO BEDTIME PRN PRN Reason: sleep Last Admin: 06/02/24 20:55 Dose: 50 mg Documented By: RENÉ Valsartan (Valsartan 40 Mg Tablet) 20 mg PO DAILY [facility]; Protocol Last Admin: 06/03/24 08:51 Dose: 20 mg Documented By: LUIS Labs 06/02/24 11:46 06/02/24 11:46 Labs: Laboratory Results - last 24 hr 06/02/24 06/02/24 06/02/24 11:46 11:53 16:12 MCV 96.1 MCH 30.2 MCHC 31.5 RDW 13.9 Plt Count 211 MPV 9.9 Immature Gran % (Auto) 1.6 H Neut % (Auto) 80.4 H Lymph % (Auto) 12.1 L [place] % (Auto) 5.1 Eos % (Auto) 0.4 Baso % (Auto) 0.4 Lymph # (Auto) 1.1 L [place] # (Auto) 0.5 Eos # (Auto) 0.0 Baso # (Auto) 0.0 Abs Immat Gran (auto) 0.14 H Absolute Neuts (auto) 7.2 Absolute Nucleated RBC 0.000 Nucleated RBC % (auto) 0.0 Anion Gap 15 Estim Creat Clear Calc 81.7 Estimated GFR > 60 POC Glucose 195 H 199 H Random Glucose 210 H Calcium 9.2 Phosphorus 2.8 Magnesium 1.2 L* Vancomycin Trough 11.4 06/02/24 06/03/24 20:26 07:34 MCV MCH MCHC RDW Plt Count MPV Immature Gran % (Auto) Neut % (Auto) Lymph % (Auto) [place] % (Auto) Eos % (Auto) Baso % (Auto) Lymph # (Auto) [place] # (Auto) Eos # (Auto) Baso # (Auto) Abs Immat Gran (auto) Absolute Neuts (auto) Absolute Nucleated RBC Nucleated RBC % (auto) Anion Gap Estim Creat Clear Calc Estimated GFR POC Glucose 198 H 188 H Random Glucose Calcium Phosphorus Magnesium Vancomycin Trough Microbiology Microbiology Results: Microbiology 05/31/24 Unknown Urine Culture - Preliminary Urine clean catch - Clean Catch Midstream Gram negative lloyd Pseudomonas aeruginosa 05/31/24 04:25 Blood Culture - Preliminary Blood - Venous No growth after 48 hours. 05/31/24 04:25 Blood Culture - Preliminary Blood - Venous No growth after 48 hours. Assessment and Plan (1) Hypertension: Status: Acute Plan The is a 58-year-old female with a past medical history of diabetes mellitus, COPD and chronic respiratory failure with hypoxia, CHF, chronic opiate dependence on methadone, and others who presented to [facility] with a several day history of poor oral intake, dysuria and worsening right lower extremity pain/weakness. The patient reports that she was hospitalized at [facility] for several weeks where she was treated for COPD, sepsis, respiratory failure requiring mechanical ventilation. She reports that she was discharged 3 days prior to this hospitalization and since being home she has continued to worsen. She reports that she has had a decreased appetite and oral intake but denies abdominal pain, nausea, vomiting. She reports right leg pain and weakness which have been persistent since her [facility] hospitalization. She reports worsening erythema bilaterally. Upon further questioning, she endorses urinary frequency and dysuria of 2 days' duration. She denies any flank pain. Patient reports subjective fevers without chills. She denies EtOh/substance use (prior documentation shows polysubstance use) In the emergency room, the patient was found to have a UA concerning for urinary tract infection. Furthermore, she has bilateral lower extremity erythema, warmth, tenderness as well as skin breakdown/erythema of the buttock region. She was found to have acute kidney injury with a serum creatinine of 1.7, baseline is around 0.7. Mag is low at 1.3. She was also hypotensive in the 80s to 90s systolic. She has been given a 30 cc/kg bolus, IV Zosyn, IV magnesium, IV Zofran and admission has been requested. She was briefly admitted to the hospitalist service. shortly after admission, her blood pressure remained persistently low and she was subsequently transferred to the ICU for vasopressor support. She was downgraded to the medical floor 06/01 after being successfully weaned off of pressors septic shock due to UTI and cellulitisgiven 30 cc/kg bolus per ideal weight in the ED. s/p pressors in ICU continue IV vancomcyin, zosyn and also clindamycin added in ICU bp meds placed on hold, resume as bp allows Hypomag Replete HENRY. Resolved likely due to above IVF as above renally dose meds GNR, Pseudomonas aeruginosa UTI continue zosyn final urine culture pending blood cultures negative to date Acute on chronic anemia no acute blood loss likely due to sepsis currently above transfusion threshold follow CBC OUD continue baseline methadone COPD/chronic resp failure with hypoxia on her baseline 2L continue baseline meds CHF, unspecified no echo in our system continue lasix tobacco use disorder NRT DM hold metformin sliding scale continue gabapentin Mental health Continue home medications Full Code Attending Dr. Corley DVT pptx - heparin Quality Stroke Does the patient have a stroke diagnosis?: No Reason for No Anti-thrombotic by Day Two: Not indicated VTE Prior VTE?: No VTE Risk Level:: Medical - moderate - high VTE Device Contraindication: N/A - Device Ordered VTE Drug Contraindication: N/A - Med Ordered
[2024-06-03 11:04] LABS: MANUAL DIFF FLAG NO
[2024-06-03 11:09] LABS: Basophils Percent Auto 0.4 % (0-2); Eosinophils Absolute Auto 0.1 X10*3/uL (0.0-0.4); Eosinophils Percent Auto 1.4 % (0-4); Hematocrit 26.5 % (37.0-47.0); Hemoglobin 8.1 g/dl (12.0-16.0); Imm Gran Abs Auto 0.09 X10*3/uL (0.00-0.03); Imm Gran Pct Auto 1.2 % (0.0-0.4); Lymphocytes Absolute Auto 1.2 X10*3/uL (1.2-4.9); Lymphocytes Percent Auto 16.1 % (20-40); Mean Corpuscular HGB Conc 30.6 g/dl (31.0-35.0); Mean Corpuscular Hemoglobin 29.5 pg (27.0-33.0); Mean Corpuscular Volume 96.4 fL (80.0-98.0); Mean Platelet Volume 10.1 fL (9.4-12.3); Monocytes Absolute Auto 0.3 X10*3/uL (0.1-1.2); Monocytes Percent Auto 4.2 % (2-11); Neutrophils Absolute Auto 5.6 x10*3/uL (2.0-8.3); Neutrophils Percent Auto 76.7 % (45-73); Platelet Count 215 X10*3/uL (160-400); Red Blood Count 2.75 X10*6/uL (4.20-5.50); Red Cell Distribution Width 14.1 % (11.0-16.0); White Blood Count 7.3 X10*3/uL (4.8-10.8)
[2024-06-03 11:23] LABS: Vancomycin Random 14.9 mcg/mL (15-20)
[2024-06-03 11:27] LABS: Anion Gap 13 (12-20); Blood Urea Nitrogen 10 mg/dL (9-16); Calcium 8.6 mg/dL (8.4-10.2); Carbon Dioxide 29 mmol/L (22-29); Chloride 101 mmol/L (96-108); Creatinine Clr Calc Pharmacy 77.5; Estimated Glomerular Filt Rate > 60; Glucose Random 324 mg/dL (60-115); Phosphorus 2.7 mg/dL (2.7-4.5); Sodium 140 mmol/L (135-145)
[2024-06-03 11:38] LABS: Glucose, Whole Blood 271 mg/dL (60-115)
[2024-06-03 11:41] LABS: Magnesium 1.2 mg/dL (1.6-2.6)
[2024-06-03] MEDS: Acetaminophen 325 MG TABLET 650 MG PO (12:25)
[2024-06-03 15:28] LABS: Glucose, Whole Blood 276 mg/dL (60-115)
[2024-06-03] MEDS: QUEtiapine Fumarate 25 MG TABLET 12.5 MG PO (16:22)
[2024-06-03 16:51] LABS: Glucose, Whole Blood 313 mg/dL (60-115)
[2024-06-03] MEDS: Butalb/Acetamin/Caff 50/325/40 TABLET 1 TAB PO (20:07)
[2024-06-03 20:14] LABS: Glucose, Whole Blood 257 mg/dL (60-115)
[2024-06-03] MEDS: traZODone HCL 50 MG TABLET PO ×2 (21:25)
[2024-06-03] MEDS: Prazosin HCL 1 MG CAPSULE PO (21:25)
[2024-06-03] MEDS: Insulin Glargine,Hum.rec.anlog 100 UNIT/ML 10 ML VIAL 15 UNIT SUBCUT (21:26)
[2024-06-04] VITALS (14 sets, daily range): BP systolic 88–131; BP diastolic 54–62; PULSE 64–90; RESP 14–19; TEMP 36.2–37.3; O2SAT 89–99
[2024-06-04] MEDS: Heparin Sodium,Porcine 5,000 UNIT/ML VIAL 5000 UNIT SUBCUT ×3 (02:34→17:03)
[2024-06-04] MEDS: Simethicone 80 MG TAB.CHEW 160 MG PO (04:22)
[2024-06-04] MEDS: Piperacillin Sodium/Tazobactam 2.25 GM in 0.9 % Sodium Chloride 50 ML IV ×3 (06:17→12:08)
[2024-06-04] MEDS: Omeprazole 40 MG CAPSULE.DR PO (06:18)
[2024-06-04 06:59] LABS: MANUAL DIFF FLAG NO
[2024-06-04 07:22] LABS: Basophils Percent Auto 0.4 % (0-2); Eosinophils Absolute Auto 0.1 X10*3/uL (0.0-0.4); Eosinophils Percent Auto 1.1 % (0-4); Hematocrit 26.4 % (37.0-47.0); Hemoglobin 8.3 g/dl (12.0-16.0); Imm Gran Abs Auto 0.15 X10*3/uL (0.00-0.03); Imm Gran Pct Auto 1.5 % (0.0-0.4); Lymphocytes Absolute Auto 1.3 X10*3/uL (1.2-4.9); Mean Corpuscular HGB Conc 31.4 g/dl (31.0-35.0); Mean Corpuscular Hemoglobin 30.1 pg (27.0-33.0); Mean Corpuscular Volume 95.7 fL (80.0-98.0); Mean Platelet Volume 10.7 fL (9.4-12.3); Monocytes Absolute Auto 0.3 X10*3/uL (0.1-1.2); Monocytes Percent Auto 3.5 % (2-11); Neutrophils Absolute Auto 7.9 x10*3/uL (2.0-8.3); Neutrophils Percent Auto 80.5 % (45-73); Platelet Count 255 X10*3/uL (160-400); Red Blood Count 2.76 X10*6/uL (4.20-5.50); Red Cell Distribution Width 14.4 % (11.0-16.0); White Blood Count 9.8 X10*3/uL (4.8-10.8)
[2024-06-04 08:12] LABS: Anion Gap 14 (12-20); Blood Urea Nitrogen 12 mg/dL (9-16); Calcium 8.5 mg/dL (8.4-10.2); Carbon Dioxide 26 mmol/L (22-29); Chloride 104 mmol/L (96-108); Creatinine Clr Calc Pharmacy 68.9; Estimated Glomerular Filt Rate > 60; Glucose Random 310 mg/dL (60-115); Magnesium 1.1 mg/dL (1.6-2.6); Phosphorus 3.1 mg/dL (2.7-4.5); Potassium 3.4 mmol/L (3.3-5.1); Sodium 141 mmol/L (135-145)
[2024-06-04] MEDS: Albuterol/Iprat 2.5/0.5MG 3 ML AMPUL.NEB INHALE ×4 (08:22→20:50)
[2024-06-04 08:24] LABS: Glucose, Whole Blood 287 mg/dL (60-115)
[2024-06-04] MEDS: 0.9 % Sodium Chloride Flush 3 ML SYRINGE IVFLUSH ×3 (08:38→20:04)
[2024-06-04] MEDS: Furosemide 40 MG TABLET PO (08:39)
[2024-06-04] MEDS: Valsartan 40 MG TABLET 20 MG PO (08:39)
[2024-06-04] MEDS: Metoprolol Succinate ER 25 MG TAB.ER.24H PO (08:39)
[2024-06-04] MEDS: Aspirin 81 MG TAB.CHEW PO (08:39)
[2024-06-04] MEDS: Folic Acid 1 MG TABLET PO (08:39)
[2024-06-04] MEDS: Sertraline HCL 50 MG TABLET PO (08:39)
[2024-06-04] MEDS: methADONE HCl 20 MG/2 ML ORAL.CONC 115 MG PO (08:40)
[2024-06-04] MEDS: Magnesium Oxide 400 MG TABLET PO ×2 (08:40→17:03)
[2024-06-04] MEDS: Gabapentin 300 MG CAPSULE PO ×3 (08:40→20:19)
[2024-06-04] MEDS: Thiamine HCL 100 MG TABLET PO (08:40)
[2024-06-04] MEDS: Nicotine 21 MG PATCH.TD24 TRANSDERMA (08:40)
[2024-06-04] MEDS: Magnesium Sulfate/H2O 2 GM/50 ML PIGGYBACK IV (08:40)
[2024-06-04] MEDS: Insulin Lispro 100 UNIT/ML 3 ML VIAL SUBCUT ×4 (08:41→21:07)
[2024-06-04] MEDS: Nystatin Powder 15 GM BOTTLE 1 APPL TOPICAL ×2 (08:42→21:08)
[2024-06-04 11:53] LABS: Glucose, Whole Blood 318 mg/dL (60-115)
[2024-06-04] MEDS: Acetaminophen 325 MG TABLET 650 MG PO (12:08)
--- NOTE | 2024-06-04 12:16 | HO.PM.IMPN ---
Subjective Subjective Date of Service: 06/04/24 Review of Systems Follow up UTI feeling better no pain or discomfort Physical Exam Vital Signs: Vital Signs: Last Vital Signs Temp 99 F 06/04/24 11:43 Pulse 90 06/04/24 11:43 Resp 16 06/04/24 11:43 BP 105/55 L 06/04/24 11:43 Pulse Ox 99 06/04/24 11:43 O2 Del Method Oxymizer 06/04/24 11:43 O2 Flow Rate 7 06/04/24 11:43 FiO2 30 05/31/24 21:00 Oxygen Flow Rate 2 05/31/24 03:55 BMI result Body Mass Index 36.1 Appearing in no acute distress lung sounds are clear to auscultation heart regular rate rhythm, clear S1, S2 positive bowel sounds, abdomen is soft, nontender neuro patient is alert x3, no focal deficits Objective Data Active Medications Acetaminophen (Acetaminophen 325 Mg Tablet) 650 mg PO Q6H PRN PRN Reason: Pain, Moderate(Pain Scale 4-6) Last Admin: 06/04/24 12:08 Dose: 650 mg Documented By: TRISTIAN Albuterol/Ipratropium (Albuterol/Iprat 2.5/0.5mg 3 Ml Ampul.Neb) 3 ml INHALE RQ4H WHILE AWAKE [facility] Last Admin: 06/04/24 11:38 Dose: 3 ml Documented By: YANIRA Aspirin (Aspirin 81 Mg Tab.Chew) 81 mg PO DAILY [facility] Last Admin: 06/04/24 08:39 Dose: 81 mg Documented By: TRISTIAN Folic Acid (Folic Acid 1 Mg Tablet) 1 mg PO DAILY [facility] Last Admin: 06/04/24 08:39 Dose: 1 mg Documented By: TRISTIAN Furosemide (Furosemide 40 Mg Tablet) 40 mg PO DAILY [facility]; Protocol Last Admin: 06/04/24 08:39 Dose: 40 mg Documented By: TRISTIAN Gabapentin (Gabapentin 300 Mg Capsule) 300 mg PO TID [facility] Last Admin: 06/04/24 08:40 Dose: 300 mg Documented By: DKING Heparin Sodium (Porcine) (Heparin Sodium,Porcine 5,000 Unit/Ml Vial) 5,000 unit SUBCUT Q8H [facility] Last Admin: 06/04/24 08:39 Dose: 5,000 unit Documented By: DKING Piperacillin Sod/Tazobactam (Sod 2.25 gm/ Sodium Chloride) 50 mls @ 100 mls/hr IV Q6H [facility] Last Admin: 06/04/24 12:08 Dose: 100 mls/hr Documented By: TRISTIAN Insulin Glargine (Insulin Glargine,Hum.Rec.Anlog 100 Unit/Ml 10 Ml Vial) 15 unit SUBCUT BEDTIME [facility] Last Admin: 06/03/24 21:26 Dose: 15 unit Documented By: BOBBY Insulin Human Lispro (Insulin Lispro 100 Unit/Ml 3 Ml Vial) 0 unit SUBCUT QIDACHS [facility]; Protocol Last Admin: 06/04/24 12:07 Dose: 8 unit Documented By: TRISTIAN Magnesium Oxide (Magnesium Oxide 400 Mg Tablet) 400 mg PO BIDPC [facility] Last Admin: 06/04/24 08:40 Dose: 400 mg Documented By: TRISTIAN Methadone HCl (Methadone Hcl 20 Mg/2 Ml Oral.Conc) 115 mg PO DAILY@0800 [facility] Last Admin: 06/04/24 08:40 Dose: 115 mg Documented By: TRISTIAN Co-signed By: ANTIONE Metoprolol Succinate (Metoprolol Succinate Er 25 Mg Tab.Er.24h) 25 mg PO DAILY [facility]; Protocol Last Admin: 06/04/24 08:39 Dose: 25 mg Documented By: TRISTIAN Nicotine (Nicotine 21 Mg Patch.Td24) 21 mg TRANSDERMA DAILY [facility] Last Admin: 06/04/24 08:40 Dose: 21 mg Documented By: TRISTIAN Nystatin (Nystatin Powder 15 Gm Bottle) 1 appl TOPICAL BID [facility]; Protocol Last Admin: 06/04/24 08:42 Dose: 1 appl Documented By: TRISTIAN Omeprazole (Omeprazole 40 Mg Capsule.Dr) 40 mg PO DAILY@0630 [facility] Last Admin: 06/04/24 06:18 Dose: 40 mg Documented By: BOBBY Ondansetron HCl (Ondansetron Odt 4 Mg Tab.Rapdis) 4 mg TRANSLINGU Q6H PRN PRN Reason: Nausea and Vomiting Last Admin: 06/02/24 15:59 Dose: 4 mg Documented By: ANNAOTPARaymundo Prazosin HCl (Prazosin Hcl 1 Mg Capsule) 1 mg PO BEDTIME [facility]; Protocol Last Admin: 06/03/24 21:25 Dose: 1 mg Documented By: BOBBY Quetiapine Fumarate (Quetiapine Fumarate 25 Mg Tablet) 12.5 mg PO Q4H PRN PRN Reason: anxiety Last Admin: 06/03/24 16:22 Dose: 12.5 mg Documented By: LUIS Sertraline HCl (Sertraline Hcl 50 Mg Tablet) 50 mg PO DAILY [facility] Last Admin: 06/04/24 08:39 Dose: 50 mg Documented By: TRISTIAN Sodium Chloride (0.9 % Sodium Chloride Flush 3 Ml Syringe) 3 ml IVFLUSH QSHIFT [facility] Last Admin: 06/04/24 08:38 Dose: 3 ml Documented By: TRISTIAN Thiamine HCl (Thiamine Hcl 100 Mg Tablet) 100 mg PO DAILY [facility] Last Admin: 06/04/24 08:40 Dose: 100 mg Documented By: TRISTIAN Trazodone HCl (Trazodone Hcl 50 Mg Tablet) 50 mg PO BEDTIME PRN PRN Reason: Insomnia Last Admin: 06/03/24 21:25 Dose: 50 mg Documented By: BOBBY Trazodone HCl (Trazodone Hcl 50 Mg Tablet) 50 mg PO BEDTIME PRN PRN Reason: sleep Last Admin: 06/03/24 21:25 Dose: 50 mg Documented By: BOBBY Comments: pt. states takes 100mg of trazodone at home. Valsartan (Valsartan 40 Mg Tablet) 20 mg PO DAILY [facility]; Protocol Last Admin: 06/04/24 08:39 Dose: 20 mg Documented By: TRISTIAN Labs 06/04/24 06:22 06/04/24 06:22 Labs: Laboratory Results - last 24 hr 06/03/24 06/03/24 06/03/24 15:06 16:47 20:07 MCV MCH MCHC RDW Plt Count MPV Immature Gran % (Auto) Neut % (Auto) Lymph % (Auto) [place] % (Auto) Eos % (Auto) Baso % (Auto) Lymph # (Auto) [place] # (Auto) Eos # (Auto) Baso # (Auto) Abs Immat Gran (auto) Absolute Neuts (auto) Absolute Nucleated RBC Nucleated RBC % (auto) Anion Gap Estim Creat Clear Calc Estimated GFR POC Glucose 276 H 313 H 257 H Random Glucose Calcium Phosphorus Magnesium 06/04/24 06/04/24 06/04/24 06:22 08:20 11:45 MCV 95.7 MCH 30.1 MCHC 31.4 RDW 14.4 Plt Count 255 MPV 10.7 Immature Gran % (Auto) 1.5 H Neut % (Auto) 80.5 H Lymph % (Auto) 13.0 L [place] % (Auto) 3.5 Eos % (Auto) 1.1 Baso % (Auto) 0.4 Lymph # (Auto) 1.3 [place] # (Auto) 0.3 Eos # (Auto) 0.1 Baso # (Auto) 0.0 Abs Immat Gran (auto) 0.15 H Absolute Neuts (auto) 7.9 Absolute Nucleated RBC 0.000 Nucleated RBC % (auto) 0.0 Anion Gap 14 Estim Creat Clear Calc 68.9 Estimated GFR > 60 POC Glucose 287 H 318 H Random Glucose 310 H Calcium 8.5 Phosphorus 3.1 Magnesium 1.1 L* Microbiology Microbiology Results: Microbiology 05/31/24 Unknown Urine Culture - Final Urine clean catch - Clean Catch Midstream Klebsiella aerogenes Pseudomonas aeruginosa Assessment and Plan (1) Hypertension: Status: Acute Plan 58-year-old female with a past medical history of diabetes mellitus, COPD and chronic respiratory failure with hypoxia, CHF, chronic opiate dependence on methadone, and others who presented to [facility] [place] with a several day history of poor oral intake, dysuria and worsening right lower extremity pain/weakness. The patient reports that she was hospitalized at [facility] for several weeks where she was treated for COPD, sepsis, respiratory failure requiring mechanical ventilation. She reports that she was discharged 3 days prior to this hospitalization and since being home she has continued to worsen. She reports that she has had a decreased appetite and oral intake but denies abdominal pain, nausea, vomiting. She reports right leg pain and weakness which have been persistent since her [facility] [place] hospitalization. She reports worsening erythema bilaterally. Upon further questioning, she endorses urinary frequency and dysuria of 2 days' duration. She denies any flank pain. Patient reports subjective fevers without chills. She denies EtOh/substance use (prior documentation shows polysubstance use) In the emergency room, the patient was found to have a UA concerning for urinary tract infection. Furthermore, she has bilateral lower extremity erythema, warmth, tenderness as well as skin breakdown/erythema of the buttock region. She was found to have acute kidney injury with a serum creatinine of 1.7, baseline is around 0.7. Mag is low at 1.3. She was also hypotensive in the 80s to 90s systolic. She has been given a 30 cc/kg bolus, IV Zosyn, IV magnesium, IV Zofran and admission has been requested. She was briefly admitted to the hospitalist service. shortly after admission, her blood pressure remained persistently low and she was subsequently transferred to the ICU for vasopressor support. She was downgraded to the medical floor 06/01 after being successfully weaned off of pressors septic shock due to UTI and cellulitisgiven 30 cc/kg bolus per ideal weight in the ED. s/p pressors in ICU continue IV vancomcyin, zosyn and also clindamycin added in ICU bp meds placed on hold, resume as bp allows Hypomag IV and po replacement Replete HENRY. Resolved likely due to above IVF as above renally dose meds GNR, Pseudomonas aeruginosa UTI continue cefepime final urine culture Klebsiella and Pseudomonas aeruginosa blood cultures negative to date Acute on chronic anemia no acute blood loss likely due to sepsis currently above transfusion threshold follow CBC OUD continue baseline methadone COPD/chronic resp failure with hypoxia on her baseline 2L continue baseline meds CHF, unspecified no echo in our system continue lasix tobacco use disorder NRT DM hold metformin sliding scale continue gabapentin Mental health Continue home medications Full Code Attending Dr. Chinchilla DVT pptx - heparin Quality Stroke Does the patient have a stroke diagnosis?: No Reason for No Anti-thrombotic by Day Two: Not indicated VTE Prior VTE?: No VTE Risk Level:: Medical - moderate - high VTE Device Contraindication: N/A - Device Ordered VTE Drug Contraindication: N/A - Med Ordered
[2024-06-04] MEDS: cefEPime HCl/D5W 2 GM/50 ML PIGGYBACK IV ×2 (12:48→20:04)
[2024-06-04 13:23] LABS: Glucose, Whole Blood 330 mg/dL (60-115)
[2024-06-04] MEDS: 0.9 % Sodium Chloride 1,000 ML 999 ML IVCONT (13:42)
[2024-06-04] MEDS: Butalb/Acetamin/Caff 50/325/40 TABLET 1 TAB PO (15:14)
[2024-06-04] MEDS: 0.9 % Sodium Chloride 1,000 ML 500 ML IVCONT (15:15)
--- NOTE | 2024-06-04 15:36 | MHC.CM.PN ---
EMR REVIEWED, PT W/LEG PAIN/WEAKNESS/UTI ON MMTP, CM MET W/PT TO DISCUSS DISPO SHE MAY BE RECOMMENDED STR, PT REPORTING SHE WILL ONLY GO TO STR IF IT IS LOCAL, PT AWARE CM WILL SEND REFERRAL TO [facility]END[facility], CM WILL CONT TO FOLLOW DC NEEDS.
[2024-06-04 16:56] LABS: Glucose, Whole Blood 259 mg/dL (60-115)
[2024-06-04] MEDS: QUEtiapine Fumarate 25 MG TABLET 12.5 MG PO (18:09)
--- NOTE | 2024-06-04 18:36 | PC.NURSE ---
At 1326 pt reports feeling sweaty and tired; no other symptoms; VS BP 89/54 , T 99.2 R 16 HR 80 O2 95 on 2 L. MD notified; IVF bolus started per MD. At 1546 BP 123/59; Pt reports feeling ok. Pt will be monitored; call moore within reach
[2024-06-04] MEDS: traZODone HCL 50 MG TABLET PO ×2 (20:19→20:20)
[2024-06-04 20:53] LABS: Glucose, Whole Blood 217 mg/dL (60-115)
[2024-06-04] MEDS: Insulin Glargine,Hum.rec.anlog 100 UNIT/ML 10 ML VIAL 15 UNIT SUBCUT (21:07)
[2024-06-05] VITALS (11 sets, daily range): BP systolic 103–134; BP diastolic 51–68; PULSE 69–93; RESP 16–20; TEMP 36–36.7; O2SAT 92–100
[2024-06-05] MEDS: Heparin Sodium,Porcine 5,000 UNIT/ML VIAL 5000 UNIT SUBCUT ×3 (02:56→17:00)
[2024-06-05] MEDS: cefEPime HCl/D5W 2 GM/50 ML PIGGYBACK IV ×3 (03:51→20:20)
[2024-06-05] MEDS: Albuterol/Iprat 2.5/0.5MG 3 ML AMPUL.NEB INHALE ×4 (05:40→20:02)
[2024-06-05] MEDS: Omeprazole 40 MG CAPSULE.DR PO (05:57)
[2024-06-05 07:33] LABS: Glucose, Whole Blood 296 mg/dL (60-115)
[2024-06-05] MEDS: Gabapentin 300 MG CAPSULE PO ×3 (09:13→20:20)
[2024-06-05] MEDS: Magnesium Oxide 400 MG TABLET PO ×2 (09:13→17:00)
[2024-06-05] MEDS: Aspirin 81 MG TAB.CHEW PO (09:13)
[2024-06-05] MEDS: Thiamine HCL 100 MG TABLET PO (09:13)
[2024-06-05] MEDS: Sertraline HCL 50 MG TABLET PO (09:13)
[2024-06-05] MEDS: 0.9 % Sodium Chloride Flush 3 ML SYRINGE IVFLUSH ×3 (09:14→20:28)
[2024-06-05] MEDS: methADONE HCl 20 MG/2 ML ORAL.CONC 115 MG PO (09:14)
[2024-06-05] MEDS: Insulin Lispro 100 UNIT/ML 3 ML VIAL SUBCUT ×4 (09:14→21:39)
[2024-06-05] MEDS: Folic Acid 1 MG TABLET PO (09:14)
[2024-06-05] MEDS: Nystatin Powder 15 GM BOTTLE 1 APPL TOPICAL ×2 (09:15→21:44)
[2024-06-05] MEDS: Nicotine 21 MG PATCH.TD24 TRANSDERMA (09:16)
[2024-06-05 09:27] LABS: MANUAL DIFF FLAG NO
[2024-06-05 09:31] LABS: Basophils Percent Auto 0.2 % (0-2); Eosinophils Absolute Auto 0.1 X10*3/uL (0.0-0.4); Eosinophils Percent Auto 1.2 % (0-4); Hematocrit 25.8 % (37.0-47.0); Hemoglobin 7.8 g/dl (12.0-16.0); Imm Gran Abs Auto 0.08 X10*3/uL (0.00-0.03); Imm Gran Pct Auto 0.9 % (0.0-0.4); Lymphocytes Absolute Auto 1.2 X10*3/uL (1.2-4.9); Lymphocytes Percent Auto 13.6 % (20-40); Mean Corpuscular HGB Conc 30.2 g/dl (31.0-35.0); Mean Corpuscular Volume 99.2 fL (80.0-98.0); Mean Platelet Volume 10.3 fL (9.4-12.3); Monocytes Absolute Auto 0.3 X10*3/uL (0.1-1.2); Monocytes Percent Auto 3.2 % (2-11); Neutrophils Absolute Auto 7.3 x10*3/uL (2.0-8.3); Neutrophils Percent Auto 80.9 % (45-73); Platelet Count 232 X10*3/uL (160-400); Red Cell Distribution Width 14.2 % (11.0-16.0)
[2024-06-05 09:49] LABS: Anion Gap 10 (12-20); Blood Urea Nitrogen 11 mg/dL (9-16); Calcium 8.3 mg/dL (8.4-10.2); Carbon Dioxide 31 mmol/L (22-29); Chloride 102 mmol/L (96-108); Creatinine Clr Calc Pharmacy 75.7; Estimated Glomerular Filt Rate > 60; Glucose Random 321 mg/dL (60-115); Phosphorus 2.6 mg/dL (2.7-4.5); Potassium 3.8 mmol/L (3.3-5.1); Sodium 139 mmol/L (135-145)
[2024-06-05 09:55] LABS: Magnesium 1.3 mg/dL (1.6-2.6)
[2024-06-05 11:26] LABS: Glucose, Whole Blood 246 mg/dL (60-115)
[2024-06-05] MEDS: Ondansetron ODT 4 MG TAB.RAPDIS TRANSLINGU (11:58)
[2024-06-05] MEDS: QUEtiapine Fumarate 25 MG TABLET 12.5 MG PO ×2 (11:58→20:23)
--- NOTE | 2024-06-05 12:27 | P.PNIM_ITS ---
Subjective Subjective Date of Service: 06/05/24 Review of Systems Follow up UTI feeling better no pain or discomfort Physical Exam 2 Vital Signs: Vital Signs: Last Vital Signs Temp 97.9 F 06/05/24 11:56 Pulse 90 06/05/24 11:56 Resp 20 06/05/24 11:56 BP 134/68 06/05/24 11:56 Pulse Ox 95 06/05/24 11:56 O2 Del Method Nasal Cannula 06/05/24 11:56 O2 Flow Rate 6 06/05/24 11:56 FiO2 30 05/31/24 21:00 Oxygen Flow Rate 2 05/31/24 03:55 BMI result Body Mass Index 36.1 Appearing in no acute distress lung sounds are clear to auscultation heart regular rate rhythm, clear S1, S2 positive bowel sounds, abdomen is soft, nontender neuro patient is alert x3, no focal deficits Objective Data Active Medications Acetaminophen (Acetaminophen 325 Mg Tablet) 650 mg PO Q6H PRN PRN Reason: Pain, Moderate(Pain Scale 4-6) Last Admin: 06/04/24 12:08 Dose: 650 mg Documented By: TRISTIAN Acetaminophen/Butalbital/Caffeine (Butalb/Acetamin/Caff 50/325/40 Tablet) 1 tab PO Q4H PRN PRN Reason: migraines Last Admin: 06/04/24 15:14 Dose: 1 tab Documented By: TRISTIAN Albuterol/Ipratropium (Albuterol/Iprat 2.5/0.5mg 3 Ml Ampul.Neb) 3 ml INHALE RQ4H WHILE AWAKE [facility] Last Admin: 06/05/24 11:25 Dose: 3 ml Documented By: YANIRA Aspirin (Aspirin 81 Mg Tab.Chew) 81 mg PO DAILY [facility] Last Admin: 06/05/24 09:13 Dose: 81 mg Documented By: TRISTIAN Folic Acid (Folic Acid 1 Mg Tablet) 1 mg PO DAILY [facility] Last Admin: 06/05/24 09:14 Dose: 1 mg Documented By: TRISTIAN Furosemide (Furosemide 40 Mg Tablet) 40 mg PO DAILY [facility]; Protocol Last Admin: 06/04/24 08:39 Dose: 40 mg Documented By: TRISTIAN Gabapentin (Gabapentin 300 Mg Capsule) 300 mg PO TID [facility] Last Admin: 06/05/24 09:13 Dose: 300 mg Documented By: TRISTIAN Heparin Sodium (Porcine) (Heparin Sodium,Porcine 5,000 Unit/Ml Vial) 5,000 unit SUBCUT Q8H [facility] Last Admin: 06/05/24 09:13 Dose: 5,000 unit Documented By: TRISTIAN Cefepime HCl (Maxipime) 2 gm in 50 mls @ 100 mls/hr IV Q8H [facility] Last Infusion: 06/05/24 12:00 Dose: Infused Documented By: TRISTIAN Insulin Glargine (Insulin Glargine,Hum.Rec.Anlog 100 Unit/Ml 10 Ml Vial) 15 unit SUBCUT BEDTIME [facility] Last Admin: 06/04/24 21:07 Dose: 15 unit Documented By: BOBBY Insulin Human Lispro (Insulin Lispro 100 Unit/Ml 3 Ml Vial) 0 unit SUBCUT QIDACHS [facility]; Protocol Last Admin: 06/05/24 11:29 Dose: 4 unit Documented By: TRISTIAN Magnesium Oxide (Magnesium Oxide 400 Mg Tablet) 400 mg PO BIDPC [facility] Last Admin: 06/05/24 09:13 Dose: 400 mg Documented By: TRISTIAN Methadone HCl (Methadone Hcl 20 Mg/2 Ml Oral.Conc) 115 mg PO DAILY@0800 [facility] Last Admin: 06/05/24 09:14 Dose: 115 mg Documented By: TRISTIAN Co-signed By: DOBROBrayden Metoprolol Succinate (Metoprolol Succinate Er 25 Mg Tab.Er.24h) 25 mg PO DAILY [facility]; Protocol Last Admin: 06/04/24 08:39 Dose: 25 mg Documented By: TRISTIAN Nicotine (Nicotine 21 Mg Patch.Td24) 21 mg TRANSDERMA DAILY [facility] Last Admin: 06/05/24 09:16 Dose: 21 mg Documented By: TRISTIAN Nystatin (Nystatin Powder 15 Gm Bottle) 1 appl TOPICAL BID [facility]; Protocol Last Admin: 06/05/24 09:15 Dose: 1 appl Documented By: TRISTIAN Omeprazole (Omeprazole 40 Mg Capsule.Dr) 40 mg PO DAILY@0630 [facility] Last Admin: 06/05/24 05:57 Dose: 40 mg Documented By: BOBBY Ondansetron HCl (Ondansetron Odt 4 Mg Tab.Rapdis) 4 mg TRANSLINGU Q6H PRN PRN Reason: Nausea and Vomiting Last Admin: 06/05/24 11:58 Dose: 4 mg Documented By: TRISTIAN Prazosin HCl (Prazosin Hcl 1 Mg Capsule) 1 mg PO BEDTIME [facility]; Protocol Last Admin: 06/03/24 21:25 Dose: 1 mg Documented By: BOBBY Quetiapine Fumarate (Quetiapine Fumarate 25 Mg Tablet) 12.5 mg PO Q4H PRN PRN Reason: anxiety Last Admin: 06/05/24 11:58 Dose: 12.5 mg Documented By: TRISTIAN Sertraline HCl (Sertraline Hcl 50 Mg Tablet) 50 mg PO DAILY [facility] Last Admin: 06/05/24 09:13 Dose: 50 mg Documented By: TRISTIAN Sodium Chloride (0.9 % Sodium Chloride Flush 3 Ml Syringe) [facility] Last Admin: 06/05/24 09:14 Dose: 3 ml Documented By: TRISTIAN Thiamine HCl (Thiamine Hcl 100 Mg Tablet) 100 mg PO DAILY [facility] Last Admin: 06/05/24 09:13 Dose: 100 mg Documented By: TRISTIAN Trazodone HCl (Trazodone Hcl 50 Mg Tablet) 50 mg PO BEDTIME PRN PRN Reason: Insomnia Last Admin: 06/04/24 20:19 Dose: 50 mg Documented By: BOBBY Trazodone HCl (Trazodone Hcl 50 Mg Tablet) 50 mg PO BEDTIME PRN PRN Reason: sleep Last Admin: 06/04/24 20:20 Dose: 50 mg Documented By: BOBBY Valsartan (Valsartan 40 Mg Tablet) 20 mg PO DAILY [facility]; Protocol Last Admin: 06/04/24 08:39 Dose: 20 mg Documented By: TRISTIAN Labs 06/05/24 09:26 06/05/24 09:26 Labs: Laboratory Results - last 24 hr 06/04/24 06/04/24 06/04/24 13:18 16:45 20:44 MCV MCH MCHC RDW Plt Count MPV Immature Gran % (Auto) Neut % (Auto) Lymph % (Auto) [place] % (Auto) Eos % (Auto) Baso % (Auto) Lymph # (Auto) [place] # (Auto) Eos # (Auto) Baso # (Auto) Abs Immat Gran (auto) Absolute Neuts (auto) Absolute Nucleated RBC Nucleated RBC % (auto) Anion Gap Estim Creat Clear Calc Estimated GFR POC Glucose 330 H 259 H 217 H Random Glucose Calcium Phosphorus Magnesium 06/05/24 06/05/24 06/05/24 07:24 09:26 11:21 MCV 99.2 H MCH 30.0 MCHC 30.2 L RDW 14.2 Plt Count 232 MPV 10.3 Immature Gran % (Auto) 0.9 H Neut % (Auto) 80.9 H Lymph % (Auto) 13.6 L [place] % (Auto) 3.2 Eos % (Auto) 1.2 Baso % (Auto) 0.2 Lymph # (Auto) 1.2 [place] # (Auto) 0.3 Eos # (Auto) 0.1 Baso # (Auto) 0.0 Abs Immat Gran (auto) 0.08 H Absolute Neuts (auto) 7.3 Absolute Nucleated RBC 0.000 Nucleated RBC % (auto) 0.0 Anion Gap 10 L Estim Creat Clear Calc 75.7 Estimated GFR > 60 POC Glucose 296 H 246 H Random Glucose 321 H Calcium 8.3 L Phosphorus 2.6 L Magnesium 1.3 L* Microbiology Microbiology Results: Microbiology 05/31/24 04:25 Blood Culture - Final Blood - Venous No growth after 5 days. 05/31/24 04:25 Blood Culture - Final Blood - Venous No growth after 5 days. 05/31/24 Unknown Urine Culture - Final Urine clean catch - Clean Catch Midstream Klebsiella aerogenes Pseudomonas aeruginosa Assessment and Plan (1) Hypertension: Status: Acute Plan 58-year-old female with a past medical history of diabetes mellitus, COPD and chronic respiratory failure with hypoxia, CHF, chronic opiate dependence on methadone, and others who presented [place] [facility] [place] with a several day history of poor oral intake, dysuria and worsening right lower extremity pain/weakness. The patient reports that she was hospitalized at [facility] for several weeks where she was treated for COPD, sepsis, respiratory failure requiring mechanical ventilation. She reports that she was discharged 3 days prior to this hospitalization and since being home she has continued to worsen. She reports that she has had a decreased appetite and oral intake but denies abdominal pain, nausea, vomiting. She reports right leg pain and weakness which have been persistent since her [facility] hospitalization. She reports worsening erythema bilaterally. Upon further questioning, she endorses urinary frequency and dysuria of 2 days' duration. She denies any flank pain. Patient reports subjective fevers without chills. She denies EtOh/substance use (prior documentation shows polysubstance use) In the emergency room, the patient was found to have a UA concerning for urinary tract infection. Furthermore, she has bilateral lower extremity erythema, warmth, tenderness as well as skin breakdown/erythema of the buttock region. She was found to have acute kidney injury with a serum creatinine of 1.7, baseline is around 0.7. Mag is low at 1.3. She was also hypotensive in the 80s to 90s systolic. She has been given a 30 cc/kg bolus, IV Zosyn, IV magnesium, IV Zofran and admission has been requested. She was briefly admitted to the hospitalist service. shortly after admission, her blood pressure remained persistently low and she was subsequently transferred to the ICU for vasopressor support. She was downgraded to the medical floor 06/01 after being successfully weaned off of pressors septic shock due to UTI and cellulitisgiven 30 cc/kg bolus per ideal weight in the ED. s/p pressors in ICU continue IV vancomcyin, zosyn and also clindamycin added in ICU bp meds placed on hold, resume as bp allows Hypomag IV and po replacement Replete HENRY. Resolved likely due to above IVF as above renally dose meds GNR, Pseudomonas aeruginosa UTI continue cefepime final urine culture Klebsiella and Pseudomonas aeruginosa blood cultures negative to date Acute on chronic anemia no acute blood loss likely due to sepsis currently above transfusion threshold follow CBC OUD continue baseline methadone COPD/chronic resp failure with hypoxia on her baseline 2L continue baseline meds CHF, unspecified no echo in our system continue lasix tobacco use disorder NRT DM hold metformin sliding scale continue gabapentin Mental health Continue home medications DISPO PT rec STR Full Code Attending Dr. Chinchilla DVT pptx - heparin Quality Stroke Does the patient have a stroke diagnosis?: No Reason for No Anti-thrombotic by Day Two: Not indicated VTE Prior VTE?: No VTE Risk Level:: Medical - moderate - high VTE Device Contraindication: N/A - Device Ordered VTE Drug Contraindication: N/A - Med Ordered
--- NOTE | 2024-06-05 12:56 | HO.WOUND ---
Wound Consult: Initial 58yr old?female [place] [facility] [place] - See progress notes and H&P for detailed history.? Wound consult placed for Buttock.? Patient agreeable to assessment and photo documentation.? Buttock Buttock with in skin fold Etiology: ?MASD with fungal dermatitis (Moisture Associated Skin Damage)?Present on Admission Wound Bed: moist pink red blanchable tissue - maceration noted - scattered areas of partial thickness tissue loss Drainage / Odor: none noted Edges: ? mirrored and irregular Brittney wound: intact ? No Induration, Fluctuance or Warmth noted Pain: pain and itching reported Goals of Treatment: ? continue nystatin powder followed by barrier cream - discontinue foam dressing at this appears to be trapping moisture to her skin since she is sweating - direct care rn aware of patient level of diaphoresis reports provider aware as well. Recommendations: 1. Turn and Reposition every 2 hours and as needed for patient comfort.? Use pillows or wedges to support off loading positions. 2. Off Load all bony prominences with use of pillows and heel boots if needed.? Apply Preventative foams where needed. ?Waffle cushion applied to chair. 3. Monitor for incontinence and moisture control, use barrier creams when needed for prevention and treatment. 4. Provide adequate and supplemental nutrition.? 5. Continue low air loss mattress. 6. When applicable maintain blood glucose levels per Providers order. 7. Coccyx and Buttock - Cleanse with PH Balance Hayden, or wipes pat dry. ?Apply thin layer of antifungal power to assist with moisture management.? Be sure to dust of excess powder to prevent caking on skin and in folds. Apply per provider orders. Follow with barrier cream to area, twice daily and PRN for episodes of incontinence. Re-consult wound care Nurse for wound deterioration or wound changes.
[2024-06-05 16:50] LABS: Glucose, Whole Blood 264 mg/dL (60-115)
[2024-06-05] MEDS: traZODone HCL 50 MG TABLET PO ×2 (20:22)
[2024-06-05 21:31] LABS: Glucose, Whole Blood 315 mg/dL (60-115)
[2024-06-05] MEDS: Magnesium Hydrox/Alum Hydrox 30 ML ORAL.SUSP PO (21:39)
[2024-06-05] MEDS: Insulin Glargine,Hum.rec.anlog 100 UNIT/ML 10 ML VIAL 15 UNIT SUBCUT (21:40)
[2024-06-06] VITALS (10 sets, daily range): BP systolic 109–124; BP diastolic 47–60; PULSE 72–90; RESP 15–20; TEMP 36.3–37; O2SAT 94–98
[2024-06-06] MEDS: Heparin Sodium,Porcine 5,000 UNIT/ML VIAL 5000 UNIT SUBCUT ×3 (03:36→16:20)
[2024-06-06] MEDS: cefEPime HCl/D5W 2 GM/50 ML PIGGYBACK IV (03:36)
[2024-06-06] MEDS: Butalb/Acetamin/Caff 50/325/40 TABLET 1 TAB PO ×4 (03:39→20:53)
[2024-06-06] MEDS: Omeprazole 40 MG CAPSULE.DR PO (05:37)
[2024-06-06 07:09] LABS: MANUAL DIFF FLAG NO
[2024-06-06 07:15] LABS: Basophils Percent Auto 0.3 % (0-2); Eosinophils Absolute Auto 0.1 X10*3/uL (0.0-0.4); Hematocrit 25.7 % (37.0-47.0); Hemoglobin 7.8 g/dl (12.0-16.0); Imm Gran Abs Auto 0.11 X10*3/uL (0.00-0.03); Imm Gran Pct Auto 1.2 % (0.0-0.4); Lymphocytes Percent Auto 10.9 % (20-40); Mean Corpuscular HGB Conc 30.4 g/dl (31.0-35.0); Mean Corpuscular Hemoglobin 30.1 pg (27.0-33.0); Mean Corpuscular Volume 99.2 fL (80.0-98.0); Mean Platelet Volume 10.4 fL (9.4-12.3); Monocytes Absolute Auto 0.3 X10*3/uL (0.1-1.2); Monocytes Percent Auto 3.3 % (2-11); Neutrophils Absolute Auto 7.4 x10*3/uL (2.0-8.3); Neutrophils Percent Auto 83.3 % (45-73); Platelet Count 245 X10*3/uL (160-400); Red Blood Count 2.59 X10*6/uL (4.20-5.50); Red Cell Distribution Width 14.1 % (11.0-16.0); White Blood Count 8.9 X10*3/uL (4.8-10.8)
[2024-06-06] MEDS: Albuterol/Iprat 2.5/0.5MG 3 ML AMPUL.NEB INHALE ×4 (07:26→19:09)
[2024-06-06 07:34] LABS: Anion Gap 11 (12-20); Blood Urea Nitrogen 12 mg/dL (9-16); Calcium 9.4 mg/dL (8.4-10.2); Carbon Dioxide 31 mmol/L (22-29); Chloride 101 mmol/L (96-108); Creatinine Clr Calc Pharmacy 79.6; Estimated Glomerular Filt Rate > 60; Glucose Random 308 mg/dL (60-115); Magnesium 1.5 mg/dL (1.6-2.6); Phosphorus 2.8 mg/dL (2.7-4.5); Potassium 4.2 mmol/L (3.3-5.1); Sodium 139 mmol/L (135-145)
[2024-06-06 08:21] LABS: Glucose, Whole Blood 287 mg/dL (60-115)
--- NOTE | 2024-06-06 08:50 | HO.PM.IMPN ---
Subjective Subjective Date of Service: 06/06/24 Review of Systems Follow up UTI feeling better no pain or discomfort Physical Exam Vital Signs: Vital Signs: Last Vital Signs Temp 97.9 F 06/06/24 08:00 Pulse 86 06/06/24 08:00 Resp 20 06/06/24 08:00 BP 109/47 L 06/06/24 08:00 Pulse Ox 94 06/06/24 08:00 O2 Del Method Nasal Cannula 06/06/24 08:00 O2 Flow Rate 2 06/06/24 08:00 FiO2 30 05/31/24 21:00 Oxygen Flow Rate 2 05/31/24 03:55 BMI result Body Mass Index 36.1 Appearing in no acute distress lung sounds are clear to auscultation heart regular rate rhythm, clear S1, S2 positive bowel sounds, abdomen is soft, nontender neuro patient is alert x3, no focal deficits Objective Data Active Medications Acetaminophen (Acetaminophen 325 Mg Tablet) 650 mg PO Q6H PRN PRN Reason: Pain, Moderate(Pain Scale 4-6) Last Admin: 06/04/24 12:08 Dose: 650 mg Documented By: TRISTIAN Acetaminophen/Butalbital/Caffeine (Butalb/Acetamin/Caff 50/325/40 Tablet) 1 tab PO Q4H PRN PRN Reason: migraines Last Admin: 06/06/24 03:39 Dose: 1 tab Documented By: TINY Albuterol/Ipratropium (Albuterol/Iprat 2.5/0.5mg 3 Ml Ampul.Neb) 3 ml INHALE RQ4H WHILE AWAKE [facility] Last Admin: 06/06/24 07:26 Dose: 3 ml Documented By: AUGUSTINA Aspirin (Aspirin 81 Mg Tab.Chew) 81 mg PO DAILY [facility] Last Admin: 06/05/24 09:13 Dose: 81 mg Documented By: TRISTIAN Folic Acid (Folic Acid 1 Mg Tablet) 1 mg PO DAILY [facility] Last Admin: 06/05/24 09:14 Dose: 1 mg Documented By: TRISTIAN Furosemide (Furosemide 40 Mg Tablet) 40 mg PO DAILY [facility]; Protocol Last Admin: 06/04/24 08:39 Dose: 40 mg Documented By: TRISTIAN Gabapentin (Gabapentin 300 Mg Capsule) 300 mg PO TID [facility] Last Admin: 06/05/24 20:20 Dose: 300 mg Documented By: TINY Heparin Sodium (Porcine) (Heparin Sodium,Porcine 5,000 Unit/Ml Vial) 5,000 unit SUBCUT Q8H [facility] Last Admin: 06/06/24 03:36 Dose: 5,000 unit Documented By: TINY Cefepime HCl (Maxipime) 2 gm in 50 mls @ 100 mls/hr IV Q8H [facility] Last Infusion: 06/06/24 04:16 Dose: Infused Documented By: TINY Insulin Glargine (Insulin Glargine,Hum.Rec.Anlog 100 Unit/Ml 10 Ml Vial) 15 unit SUBCUT BEDTIME [facility] Last Admin: 06/05/24 21:40 Dose: 15 unit Documented By: TINY Insulin Human Lispro (Insulin Lispro 100 Unit/Ml 3 Ml Vial) 0 unit SUBCUT QIDACHS [facility]; Protocol Last Admin: 06/05/24 21:39 Dose: 8 unit Documented By: TINY Magnesium Oxide (Magnesium Oxide 400 Mg Tablet) 400 mg PO BIDPC [facility] Last Admin: 06/05/24 17:00 Dose: 400 mg Documented By: TRISTIAN Methadone HCl (Methadone Hcl 20 Mg/2 Ml Oral.Conc) 115 mg PO DAILY@0800 [facility] Last Admin: 06/05/24 09:14 Dose: 115 mg Documented By: TRISTIAN Co-signed By: DOBROBrayden Metoprolol Succinate (Metoprolol Succinate Er 25 Mg Tab.Er.24h) 25 mg PO DAILY [facility]; Protocol Last Admin: 06/04/24 08:39 Dose: 25 mg Documented By: TRISTIAN Nicotine (Nicotine 21 Mg Patch.Td24) 21 mg TRANSDERMA DAILY [facility] Last Admin: 06/05/24 09:16 Dose: 21 mg Documented By: TRISTIAN Nystatin (Nystatin Powder 15 Gm Bottle) 1 appl TOPICAL BID [facility]; Protocol Last Admin: 06/05/24 21:44 Dose: 1 appl Documented By: TINY Omeprazole (Omeprazole 40 Mg Capsule.Dr) 40 mg PO DAILY@0630 [facility] Last Admin: 06/06/24 05:37 Dose: 40 mg Documented By: TINY Ondansetron HCl (Ondansetron Odt 4 Mg Tab.Rapdis) 4 mg TRANSLINGU Q6H PRN PRN Reason: Nausea and Vomiting Last Admin: 06/05/24 11:58 Dose: 4 mg Documented By: TRISTIAN Prazosin HCl (Prazosin Hcl 1 Mg Capsule) 1 mg PO BEDTIME [facility]; Protocol Last Admin: 06/03/24 21:25 Dose: 1 mg Documented By: BOBBY Quetiapine Fumarate (Quetiapine Fumarate 25 Mg Tablet) 12.5 mg PO Q4H PRN PRN Reason: anxiety Last Admin: 06/05/24 20:23 Dose: 12.5 mg Documented By: TINY Sertraline HCl (Sertraline Hcl 50 Mg Tablet) 50 mg PO DAILY [facility] Last Admin: 06/05/24 09:13 Dose: 50 mg Documented By: TRISTIAN Sodium Chloride (0.9 % Sodium Chloride Flush 3 Ml Syringe) [facility] Last Admin: 06/05/24 20:28 Dose: 3 ml Documented By: TINY Thiamine HCl (Thiamine Hcl 100 Mg Tablet) 100 mg PO DAILY [facility] Last Admin: 06/05/24 09:13 Dose: 100 mg Documented By: TRISTIAN Trazodone HCl (Trazodone Hcl 50 Mg Tablet) 50 mg PO BEDTIME PRN PRN Reason: Insomnia Last Admin: 06/05/24 20:22 Dose: 50 mg Documented By: TINY Trazodone HCl (Trazodone Hcl 50 Mg Tablet) 50 mg PO BEDTIME PRN PRN Reason: sleep Last Admin: 06/05/24 20:22 Dose: 50 mg Documented By: TINY Valsartan (Valsartan 40 Mg Tablet) 20 mg PO DAILY [facility]; Protocol Last Admin: 06/04/24 08:39 Dose: 20 mg Documented By: TRISTIAN Labs 06/06/24 07:03 06/06/24 07:03 Labs: Laboratory Results - last 24 hr 06/05/24 06/05/24 06/05/24 09:26 11:21 16:23 MCV 99.2 H MCH 30.0 MCHC 30.2 L RDW 14.2 Plt Count 232 MPV 10.3 Immature Gran % (Auto) 0.9 H Neut % (Auto) 80.9 H Lymph % (Auto) 13.6 L [place] % (Auto) 3.2 Eos % (Auto) 1.2 Baso % (Auto) 0.2 Lymph # (Auto) 1.2 [place] # (Auto) 0.3 Eos # (Auto) 0.1 Baso # (Auto) 0.0 Abs Immat Gran (auto) 0.08 H Absolute Neuts (auto) 7.3 Absolute Nucleated RBC 0.000 Nucleated RBC % (auto) 0.0 Anion Gap 10 L Estim Creat Clear Calc 75.7 Estimated GFR > 60 POC Glucose 246 H 264 H Random Glucose 321 H Calcium 8.3 L Phosphorus 2.6 L Magnesium 1.3 L* 06/05/24 06/06/24 06/06/24 21:25 07:03 07:03 MCV 99.2 H MCH 30.1 MCHC 30.4 L RDW 14.1 Plt Count 245 MPV 10.4 Immature Gran % (Auto) 1.2 H Neut % (Auto) 83.3 H Lymph % (Auto) 10.9 L [place] % (Auto) 3.3 Eos % (Auto) 1.0 Baso % (Auto) 0.3 Lymph # (Auto) 1.0 L [place] # (Auto) 0.3 Eos # (Auto) 0.1 Baso # (Auto) 0.0 Abs Immat Gran (auto) 0.11 H Absolute Neuts (auto) 7.4 Absolute Nucleated RBC 0.000 Nucleated RBC % (auto) 0.0 Anion Gap 11 L Cancelled Estim Creat Clear Calc 79.6 Estimated GFR POC Glucose 315 H Random Glucose Calcium Phosphorus Magnesium 06/06/24 06/06/24 06/06/24 07:03 07:03 07:03 MCV MCH MCHC RDW Plt Count MPV Immature Gran % (Auto) Neut % (Auto) Lymph % (Auto) [place] % (Auto) Eos % (Auto) Baso % (Auto) Lymph # (Auto) [place] # (Auto) Eos # (Auto) Baso # (Auto) Abs Immat Gran (auto) Absolute Neuts (auto) Absolute Nucleated RBC Nucleated RBC % (auto) Anion Gap Estim Creat Clear Calc Cancelled Estimated GFR > 60 Cancelled POC Glucose Random Glucose 308 H Cancelled Calcium 9.4 D Phosphorus Magnesium 06/06/24 06/06/24 07:03 08:07 MCV MCH MCHC RDW Plt Count MPV Immature Gran % (Auto) Neut % (Auto) Lymph % (Auto) [place] % (Auto) Eos % (Auto) Baso % (Auto) Lymph # (Auto) [place] # (Auto) Eos # (Auto) Baso # (Auto) Abs Immat Gran (auto) Absolute Neuts (auto) Absolute Nucleated RBC Nucleated RBC % (auto) Anion Gap Estim Creat Clear Calc Estimated GFR POC Glucose 287 H Random Glucose Calcium Cancelled Phosphorus 2.8 Magnesium 1.5 L Microbiology Microbiology Results: Microbiology 05/31/24 04:25 Blood Culture - Final Blood - Venous No growth after 5 days. 05/31/24 04:25 Blood Culture - Final Blood - Venous No growth after 5 days. Assessment and Plan (1) Hypertension: Status: Acute Plan 58-year-old female with a past medical history of diabetes mellitus, COPD and chronic respiratory failure with hypoxia, CHF, chronic opiate dependence on methadone, and others who presented to [facility] ED with a several day history of poor oral intake, dysuria and worsening right lower extremity pain/weakness. The patient reports that she was hospitalized at [facility] for several weeks where she was treated for COPD, sepsis, respiratory failure requiring mechanical ventilation. She reports that she was discharged 3 days prior to this hospitalization and since being home she has continued to worsen. She reports that she has had a decreased appetite and oral intake but denies abdominal pain, nausea, vomiting. She reports right leg pain and weakness which have been persistent since her [facility] [place]. She reports worsening erythema bilaterally. Upon further questioning, she endorses urinary frequency and dysuria of 2 days' duration. She denies any flank pain. Patient reports subjective fevers without chills. She denies EtOh/substance use (prior documentation shows polysubstance use) In the emergency room, the patient was found to have a UA concerning for urinary tract infection. Furthermore, she has bilateral lower extremity erythema, warmth, tenderness as well as skin breakdown/erythema of the buttock region. She was found to have acute kidney injury with a serum creatinine of 1.7, baseline is around 0.7. Mag is low at 1.3. She was also hypotensive in the 80s to 90s systolic. She has been given a 30 cc/kg bolus, IV Zosyn, IV magnesium, IV Zofran and admission has been requested. She was briefly admitted to the hospitalist service. shortly after admission, her blood pressure remained persistently low and she was subsequently transferred to the ICU for vasopressor support. She was downgraded to the medical floor 06/01 after being successfully weaned off of pressors septic shock due to UTI and cellulitisgiven 30 cc/kg bolus per ideal weight in the ED. s/p pressors in ICU continue IV vancomcyin, zosyn and also clindamycin added in ICU bp meds placed on hold, resume as bp allows Hypomag IV and po replacement Replete HENRY. Resolved likely due to above IVF as above renally dose meds GNR, Pseudomonas aeruginosa UTI final urine culture Klebsiella and Pseudomonas aeruginosa cefepime switched to Levaquin blood cultures negative to date Acute on chronic anemia no acute blood loss likely due to sepsis currently above transfusion threshold follow CBC OUD continue baseline methadone COPD/chronic resp failure with hypoxia on her baseline 2L continue baseline meds CHF, unspecified no echo in our system continue lasix tobacco use disorder NRT DM2 hold metformin sliding scale continue gabapentin Mental health Continue home medications DISPO PT rec STR when medically clear Full Code Attending Dr. Chinchilla DVT pptx - heparin Quality Stroke Does the patient have a stroke diagnosis?: No Reason for No Anti-thrombotic by Day Two: Not indicated VTE Prior VTE?: No VTE Risk Level:: Medical - moderate - high VTE Device Contraindication: N/A - Device Ordered VTE Drug Contraindication: N/A - Med Ordered
[2024-06-06] MEDS: methADONE HCl 20 MG/2 ML ORAL.CONC 115 MG PO (08:56)
[2024-06-06] MEDS: Nicotine 21 MG PATCH.TD24 TRANSDERMA (09:04)
[2024-06-06] MEDS: Aspirin 81 MG TAB.CHEW PO (09:05)
[2024-06-06] MEDS: Thiamine HCL 100 MG TABLET PO (09:05)
[2024-06-06] MEDS: Magnesium Oxide 400 MG TABLET PO ×2 (09:05→16:20)
[2024-06-06] MEDS: Sertraline HCL 50 MG TABLET PO (09:05)
[2024-06-06] MEDS: 0.9 % Sodium Chloride Flush 3 ML SYRINGE IVFLUSH ×3 (09:05→21:00)
[2024-06-06] MEDS: Nystatin Powder 15 GM BOTTLE 1 APPL TOPICAL ×2 (09:05→20:59)
[2024-06-06] MEDS: Folic Acid 1 MG TABLET PO (09:05)
[2024-06-06] MEDS: Gabapentin 300 MG CAPSULE PO ×3 (09:05→20:54)
[2024-06-06] MEDS: Insulin Lispro 100 UNIT/ML 3 ML VIAL SUBCUT ×4 (09:06→20:55)
[2024-06-06] MEDS: Magnesium Sulfate/H2O 2 GM/50 ML PIGGYBACK IV (09:15)
[2024-06-06] MEDS: guaiFENesin LA 600 MG TAB.ER.12H PO ×2 (09:15→20:54)
[2024-06-06] MEDS: levoFLOXacin 500 MG TABLET PO (09:15)
--- NOTE | 2024-06-06 09:25 | MHC.CM.PN ---
EMR REVIEWED, PT W/UTI/RESOLVED HENRY, CM DISUSSED CASE W/HOSPITALIST WHO REPORTS PT WILL LIKELY BE CLEARED FOR DC TOMORROW 06/07 SHE IS DECLINING TO GO TO STR, JAZZ MEZA UPDATED VIA [employer], PT IS ACTIVE W/SN/OT/PT, CM WILL CONT TO FOLLOW DC NEEDS.
[2024-06-06 11:26] LABS: Glucose, Whole Blood 272 mg/dL (60-115)
[2024-06-06] MEDS: Ondansetron ODT 4 MG TAB.RAPDIS TRANSLINGU (11:40)
--- NOTE | 2024-06-06 15:55 | P.DS_ITS ---
DS: Providers Provider Date of admission: 05/31/24 10:02 Primary care physician: Ward Richter MD Consults: 05/31/24 10:02 Consult to Wound Care Routine Reason for consultation: Maceration to Buttocks, ?cellulitis to B/L lower extremity DS: Diagnosis Discharge Diagnosis (1) Hypertension: Status: Acute DS: Summary Hospital Course Hospital Course: History and physical as per admitting provider. The patient is a 58-year-old female with a past medical history of diabetes mellitus, COPD and chronic respiratory failure with hypoxia, CHF, chronic opiate dependence on methadone, and others who presented to [facility] with a several day history of poor oral intake, dysuria and worsening right lower extremity pain/weakness. The patient reports that she was hospitalized at [facility] for several weeks where she was treated for COPD, sepsis, respiratory failure requiring mechanical ventilation. She reports that she was discharged 3 days prior to this hospitalization and since being home she has continued to worsen. She reports that she has had a decreased appetite and oral intake but denies abdominal pain, nausea, vomiting. She reports right leg pain and weakness which have been persistent since her [facility] hospitalization. She reports worsening erythema bilaterally. Upon further questioning, she endorses urinary frequency and dysuria of 2 days' duration. She denies any flank pain. Patient reports subjective fevers without chills. She denies EtOh/substance use (prior documentation shows polysubstance use) In the emergency room, the patient was found to have a UA concerning for urinary tract infection. Furthermore, she has bilateral lower extremity erythema, warmth, tenderness as well as skin breakdown/erythema of the buttock region. She was found to have acute kidney injury with a serum creatinine of 1.7, baseline is around 0.7. Mag is low at 1.3. She was also hypotensive in the 80s to 90s systolic. She has been given a 30 cc/kg bolus, IV Zosyn, IV magnesium, IV Zofran and admission has been requested. Patient is seen and examined in the emergency room around 09:45. Her blood pressure is ranging from 90s to 100 systolic. She is completely asymptomatic in this regard. She is requesting her methadone. Informed by RN around 10:15 the patient's BP was in the 70s and 60 systolic. Patient re- evaluated shortly there after. BP manually checked in he 80s/40s, no tachycardi a. Pt again denies symptoms of hypotension and is awake. Given persistent low BP -- will ask senior computer specialist to evaluate for ICU level of care. Will check CXR and give dose of vancomcyin. 58-year-old woman treated for weakness and dysuria. Blood cultures have remained negative. She was also noted to have erythema to buttock region. She was also noted to have acute kidney injury resolved with IV fluids and renally dosed medications. She was initially hypotensive and given 30 mL/kg IV fluid bolus just after admission her blood pressure remained low and she was transferred to the ICU for vasopressor support. She was downgraded to the medical floor on 06/01/2024 after being successfully weaned off of pressors and treated for septic shock secondary to UTI and cellulitis. Status post pressors in the ICU she was initially treated with IV vanco Zosyn and clindamycin. Urine culture grew Pseudomonas aeruginosa, Klebsiella and antibiotics were switched to Levaquin. She had multiple episodes of hypomagnesemia replace with IV and p.o.. Acute on chronic anemia with no blood loss likely secondary to sepsis, stable CBC. The patient was seen evaluated by Physical therapy with recommendation for short-term rehab however patient was on methadone and it was difficult to find rehab facilities accept patients on this medication. There are short-term rehab facilities in [place] but patient refuses to go that far. She reported that she would be okay with going home and having physical therapy continued. Hospital course by problem: septic shock due to UTI final urine culture growing Klebsiella and Pseudomonas aeruginosa. abx changed to Levaquin. blood cultures negative to date Hypomag resolved with replacement HENRY. resolved with IVF Acute on chronic anemia no acute blood loss. likely due to sepsis. remains above transfusion threshold. H/H has remained stable. OUD continue baseline methadone COPD/chronic resp failure with hypoxia. saturating well on her baseline 2L. HFpEF echo from 2022 showing preserved EF. lasix was held, now with increasing edema on CXR, received a dose of IV lasix and then resumed on low dose po lasix. blood pressures have been soft, will stop valsartan for now and reduce dose of lasix. recommend close outpatient follow up with PCP Diabetes mellitus type 2. Continue metformin Tobacco use. Nicotine replacement as needed Substance abuse history. Continue methadone patient was supposed to be discharged 06/08 but did not go due to technical issues. no events overnight. patient awake and alert his am, feeling well, no sob at baseline o2; stable for discahrge home to resume home PT,OT, vna services. Physical Exam Vital Signs: Vital Signs: Last Vital Signs Temp 98.6 F 06/06/24 12:00 Pulse 80 06/06/24 15:24 Resp 20 06/06/24 15:24 BP 115/58 L 06/06/24 12:00 Pulse Ox 96 06/06/24 12:00 O2 Del Method Nasal Cannula 06/06/24 12:00 O2 Flow Rate 2 06/06/24 12:00 FiO2 30 05/31/24 21:00 Oxygen Flow Rate 2 05/31/24 03:55 BMI result Body Mass Index 36.1 DS: Data Data Completed and Pending Completed studies during hospitalization [Text1]: Procedures Assistance with Respiratory Ventilation, Less than 24 Consecutive Hours, Continuous Positive Airway Pressure (03/15/23) Detoxification Services for Substance Abuse Treatment (03/15/23) Labs on day of discharge: Laboratory Results - last 24 hr 06/05/24 06/05/24 06/06/24 16:23 21:25 07:03 WBC 8.9 RBC 2.59 L Hgb 7.8 L Hct 25.7 L MCV 99.2 H MCH 30.1 MCHC 30.4 L RDW 14.1 Plt Count 245 MPV 10.4 Immature Gran % (Auto) 1.2 H Neut % (Auto) 83.3 H Lymph % (Auto) 10.9 L Smith % (Auto) 3.3 Eos % (Auto) 1.0 Baso % (Auto) 0.3 Lymph # (Auto) 1.0 L [place] # (Auto) 0.3 Eos # (Auto) 0.1 Baso # (Auto) 0.0 Abs Immat Gran (auto) 0.11 H Absolute Neuts (auto) 7.4 Absolute Nucleated RBC 0.000 Nucleated RBC % (auto) 0.0 Sodium 139 Potassium Chloride Carbon Dioxide Anion Gap BUN Creatinine Estim Creat Clear Calc Estimated GFR POC Glucose 264 H 315 H Random Glucose Calcium Phosphorus Magnesium 06/06/24 06/06/24 06/06/24 07:03 07:03 07:03 WBC RBC Hgb Hct MCV MCH MCHC RDW Plt Count MPV Immature Gran % (Auto) Neut % (Auto) Lymph % (Auto) [place] % (Auto) Eos % (Auto) Baso % (Auto) Lymph # (Auto) [place] # (Auto) Eos # (Auto) Baso # (Auto) Abs Immat Gran (auto) Absolute Neuts (auto) Absolute Nucleated RBC Nucleated RBC % (auto) Sodium Cancelled Potassium 4.2 Cancelled Chloride 101 Cancelled Carbon Dioxide 31 H Anion Gap BUN Creatinine Estim Creat Clear Calc Estimated GFR POC Glucose Random Glucose Calcium Phosphorus Magnesium 06/06/24 06/06/24 06/06/24 07:03 07:03 07:03 WBC RBC Hgb Hct MCV MCH MCHC RDW Plt Count MPV Immature Gran % (Auto) Neut % (Auto) Lymph % (Auto) [place] % (Auto) Eos % (Auto) Baso % (Auto) Lymph # (Auto) [place] # (Auto) Eos # (Auto) Baso # (Auto) Abs Immat Gran (auto) Absolute Neuts (auto) Absolute Nucleated RBC Nucleated RBC % (auto) Sodium Potassium Chloride Carbon Dioxide Cancelled Anion Gap 11 L Cancelled BUN 12 Cancelled Creatinine 0.77 Estim Creat Clear Calc Estimated GFR POC Glucose Random Glucose Calcium Phosphorus Magnesium 06/06/24 06/06/24 06/06/24 07:03 07:03 07:03 WBC RBC Hgb Hct MCV MCH MCHC RDW Plt Count MPV Immature Gran % (Auto) Neut % (Auto) Lymph % (Auto) [place] % (Auto) Eos % (Auto) Baso % (Auto) Lymph # (Auto) [place] # (Auto) Eos # (Auto) Baso # (Auto) Abs Immat Gran (auto) Absolute Neuts (auto) Absolute Nucleated RBC Nucleated RBC % (auto) Sodium Potassium Chloride Carbon Dioxide Anion Gap BUN Creatinine Cancelled Estim Creat Clear Calc 79.6 Cancelled Estimated GFR > 60 Cancelled POC Glucose Random Glucose 308 H Calcium Phosphorus Magnesium 06/06/24 06/06/24 06/06/24 07:03 07:03 08:07 WBC RBC Hgb Hct MCV MCH MCHC RDW Plt Count MPV Immature Gran % (Auto) Neut % (Auto) Lymph % (Auto) [place] % (Auto) Eos % (Auto) Baso % (Auto) Lymph # (Auto) [place] # (Auto) Eos # (Auto) Baso # (Auto) Abs Immat Gran (auto) Absolute Neuts (auto) Absolute Nucleated RBC Nucleated RBC % (auto) Sodium Potassium Chloride Carbon Dioxide Anion Gap BUN Creatinine Estim Creat Clear Calc Estimated GFR POC Glucose 287 H Random Glucose Cancelled Calcium 9.4 D Cancelled Phosphorus 2.8 Magnesium 1.5 L 06/06/24 11:18 WBC RBC Hgb Hct MCV MCH MCHC RDW Plt Count MPV Immature Gran % (Auto) Neut % (Auto) Lymph % (Auto) [place] % (Auto) Eos % (Auto) Baso % (Auto) Lymph # (Auto) [place] # (Auto) Eos # (Auto) Baso # (Auto) Abs Immat Gran (auto) Absolute Neuts (auto) Absolute Nucleated RBC Nucleated RBC % (auto) Sodium Potassium Chloride Carbon Dioxide Anion Gap BUN Creatinine Estim Creat Clear Calc Estimated GFR POC Glucose 272 H Random Glucose Calcium Phosphorus Magnesium Discharge Plan Discharge Anticipated Discharge Date/Time: 06/08/24 12:27 Patient Disposition: Home Health Service Discharge Diagnosis: Acute hypoxic respiratory failure HENRY Hypomagnesemia Pseudomonas, Klebsiella aeruginosa UTI COPD exacerbation Referrals: Carlie Jorge [Outside] - 1 Day (RESUMPTION OF CARE ) Ward Richter MD [Primary Care Provider] - 1 Week Discharge Medications: New levofloxacin 500 mg Tablet 500 mg PO Q24H Qty: 4 0RF furosemide [Lasix] 20 mg tablet 20 mg PO DAILY Qty: 90 0RF Continued (DME) cane Device See Rx Instructions .Route Qty: 1 0RF Rx Instructions: As directed (DME) GRAB BAR See Rx Instructions .Route .MEDSUPPLY Qty: 1 0RF Rx Instructions: As directed sertraline 50 mg tablet 50 mg PO DAILY Qty: 30 2RF albuterol sulfate [Ventolin HFA] 90 mcg/actuation HFA aerosol inhaler 2 puff inhalation Q6H PRN (Reason: for wheezing) Qty: 8.5 0RF aspirin 81 mg tablet,delayed release (DR/EC) 81 mg PO DAILY Qty: 90 3RF (DME) FreeStyle Lite Strips Strip Qty: 100 12RF Rx Instructions: Test four times a day or as directed. clotrimazole 1 % cream 1 appl topical BID Qty: 30 0RF (DME) FreeStyle Nathan 2 [place] Misc See Rx Instructions .ROUTE .MEDSUPPLY Qty: 1 0RF Rx Instructions: As directed check the BS TID (DME) FreeStyle Nathan 2 Sensor Kit See Rx Instructions .ROUTE .MEDSUPPLY Qty: 6 6RF Rx Instructions: As directed check the BS TID folic acid 1 mg tablet 1 mg PO DAILY Qty: 90 0RF (DME) insulin syringe-needle U-100 [BD Insulin Syringe Ultra-Fine] 1 mL 31 gauge x 5/16 syringe See Rx Instructions .Route Qty: 100 8RF Rx Instructions: As directed 4 times per day (DME) lancets [FreeStyle Lancets] 28 gauge misc Qty: 100 8RF Rx Instructions: Test four times a day or as directed. magnesium oxide 400 mg (241.3 mg magnesium) tablet 400 mg PO DAILY@0730 Qty: 90 0RF metformin 500 mg tablet 500 mg PO BID Qty: 180 8RF nystatin 100,000 unit/gram powder 1 appl topical BID Qty: 30 0RF (DME) Oxygen Home Use Kit See Rx Instructions .ROUTE .MEDSUPPLY Qty: 1 12RF Rx Instructions: 2L nasal cannula continuous (DME) pen needle, diabetic [BD Ultra-Fine Micro Pen Needle] 32 gauge x 1/4 needle See Rx Instructions .Route Qty: 100 8RF Rx Instructions: test 4 times per day polyethylene glycol 3350 17 gram powder in packet 17 g PO DAILY PRN (Reason: Constipation) Qty: 100 0RF thiamine mononitrate (vit B1) 100 mg tablet 100 mg PO DAILY Qty: 90 0RF (DME) blood-glucose meter [FreeStyle Lite Meter] Kit Qty: 1 0RF Rx Instructions: As Directed (DME) compress.stocking,knee,reg,med Misc See Rx Instructions .Route Qty: 12 0RF Rx Instructions: As directed 20-30 mm HG (DME) Wings Choice Plus Adult Briefs Misc See Rx Instructions .Route Qty: 60 0RF Rx Instructions: As directed docusate sodium [Colace] 100 mg capsule 100 mg PO BID PRN (Reason: Constipation) Qty: 90 0RF mirtazapine 30 mg tablet 30 mg PO BEDTIME 30 Days Qty: 30 1RF omeprazole 40 mg capsule,delayed release(DR/EC) 40 mg PO DAILY@0630 Qty: 90 2RF ondansetron 4 mg tablet,disintegrating 4 mg PO Q8H PRN (Reason: nausea and vomiting) Qty: 20 0RF trazodone 50 mg tablet 50 mg PO BEDTIME PRN (Reason: sleep) Qty: 90 0RF Anoro Ellipta 62.5-25 mcg/actuation blister with device 1 ea inhalation DAILY Qty: 60 12RF insulin glargine [Lantus Solostar U-100 Insulin] 100 unit/mL (3 mL) insulin pen 15 unit SUBCUT BEDTIME 30 Days Qty: 4.5 0RF dapagliflozin propanediol [Farxiga] 10 mg tablet 10 mg PO DAILY Qty: 30 0RF (DME) Adult pull ups large See Rx Instructions .Route .MEDSUPPLY Qty: 300 3RF Rx Instructions: As directed ipratropium-albuterol 0.5 mg-3 mg(2.5 mg base)/3 mL solution for nebulization 3 ml inhalation Q4-6H PRN (Reason: shortness of breath or wheezing) Qty: 180 0RF methadone [Methadone Intensol] 10 mg/mL Concentrate 115 mg PO DAILY (DME) pulse oximeter See Rx Instructions Rx Instructions: As directed metoprolol succinate 25 mg Tablet Extended Release 24 Hr 25 mg PO DAILY quetiapine 25 mg tablet 12.5 mg PO Q4H PRN (Reason: anxiety) gabapentin 300 mg capsule 300 mg PO TID insulin lispro [Humalog KwikPen Insulin] 100 unit/mL insulin pen 5 unit subcut TID Discontinued valsartan 40 mg Tablet 20 mg PO DAILY prazosin 1 mg capsule 1 mg PO BEDTIME Protocol: Hold for SBP< HOLD for SBP < : 90 Discharge Orders: Discharge Order (Routine); Ordered 06/08/24 Ordered By: Geraldine King Diet: Advance to usual diet Activity on Discharge: As tolerated Stand Alone Forms: Patient Portal Discharge page Print Language: Rwandan Care Plan Goals: see below Health Concerns: Acute hypoxic respiratory failure HENRY Hypomagnesemia Pseudomonas, Klebsiella aeruginosa UTI COPD exacerbation Plan of Treatment: call to schedule Follow up with appointment with primary care provider see medication adjustments as above lasix reduced to 20 mg; stop losartan for now, stop prazosin Complete antibiotics for UTI resume lasix on Tuesday follow low sodium diet, daily weight Assessment: See discharge summary Discharge Date/Time: 06/09/24 08:37
[2024-06-06 16:13] LABS: Glucose, Whole Blood 245 mg/dL (60-115)
[2024-06-06] MEDS: QUEtiapine Fumarate 25 MG TABLET 12.5 MG PO (20:50)
[2024-06-06 20:52] LABS: Glucose, Whole Blood 282 mg/dL (60-115)
[2024-06-06] MEDS: traZODone HCL 50 MG TABLET PO ×2 (20:54)
[2024-06-06] MEDS: Insulin Glargine,Hum.rec.anlog 100 UNIT/ML 10 ML VIAL 15 UNIT SUBCUT (20:55)
[2024-06-07] VITALS (7 sets, daily range): BP systolic 122–154; BP diastolic 56–73; PULSE 75–86; RESP 14–20; TEMP 36.1–37; O2SAT 92–98
[2024-06-07] MEDS: Heparin Sodium,Porcine 5,000 UNIT/ML VIAL 5000 UNIT SUBCUT ×3 (03:02→16:40)
[2024-06-07] MEDS: Omeprazole 40 MG CAPSULE.DR PO (06:28)
[2024-06-07 07:21] LABS: Glucose, Whole Blood 247 mg/dL (60-115)
[2024-06-07] MEDS: Albuterol/Iprat 2.5/0.5MG 3 ML AMPUL.NEB INHALE (07:46)
[2024-06-07 08:36] LABS: MANUAL DIFF FLAG NO
[2024-06-07] MEDS: Insulin Lispro 100 UNIT/ML 3 ML VIAL SUBCUT ×4 (08:40→22:10)
[2024-06-07] MEDS: 0.9 % Sodium Chloride Flush 3 ML SYRINGE IVFLUSH ×2 (08:40→16:41)
[2024-06-07] MEDS: Aspirin 81 MG TAB.CHEW PO (08:41)
[2024-06-07] MEDS: Thiamine HCL 100 MG TABLET PO (08:41)
[2024-06-07] MEDS: methADONE HCl 20 MG/2 ML ORAL.CONC 115 MG PO (08:41)
[2024-06-07] MEDS: Sertraline HCL 50 MG TABLET PO (08:41)
[2024-06-07] MEDS: Folic Acid 1 MG TABLET PO (08:42)
[2024-06-07] MEDS: Magnesium Oxide 400 MG TABLET PO ×2 (08:42→16:41)
[2024-06-07] MEDS: Gabapentin 300 MG CAPSULE PO ×3 (08:42→22:07)
[2024-06-07] MEDS: levoFLOXacin 500 MG TABLET PO (08:42)
[2024-06-07] MEDS: guaiFENesin LA 600 MG TAB.ER.12H PO ×2 (08:42→22:07)
[2024-06-07] MEDS: Nicotine 21 MG PATCH.TD24 TRANSDERMA (08:42)
[2024-06-07 08:44] LABS: Basophils Percent Auto 0.4 % (0-2); Eosinophils Absolute Auto 0.1 X10*3/uL (0.0-0.4); Eosinophils Percent Auto 1.4 % (0-4); Hematocrit 26.1 % (37.0-47.0); Hemoglobin 7.9 g/dl (12.0-16.0); Imm Gran Abs Auto 0.08 X10*3/uL (0.00-0.03); Lymphocytes Absolute Auto 1.1 X10*3/uL (1.2-4.9); Lymphocytes Percent Auto 13.4 % (20-40); Mean Corpuscular HGB Conc 30.3 g/dl (31.0-35.0); Mean Corpuscular Hemoglobin 30.2 pg (27.0-33.0); Mean Corpuscular Volume 99.6 fL (80.0-98.0); Mean Platelet Volume 10.5 fL (9.4-12.3); Monocytes Absolute Auto 0.3 X10*3/uL (0.1-1.2); Monocytes Percent Auto 3.8 % (2-11); Neutrophils Absolute Auto 6.3 x10*3/uL (2.0-8.3); Platelet Count 242 X10*3/uL (160-400); Red Blood Count 2.62 X10*6/uL (4.20-5.50); Red Cell Distribution Width 14.2 % (11.0-16.0); White Blood Count 7.9 X10*3/uL (4.8-10.8)
[2024-06-07] MEDS: Nystatin Powder 15 GM BOTTLE 1 APPL TOPICAL ×2 (08:46→22:10)
[2024-06-07] MEDS: Butalb/Acetamin/Caff 50/325/40 TABLET 1 TAB PO (08:49)
[2024-06-07 09:01] LABS: Anion Gap 9 (12-20); Blood Urea Nitrogen 12 mg/dL (9-16); Calcium 9.7 mg/dL (8.4-10.2); Carbon Dioxide 32 mmol/L (22-29); Chloride 102 mmol/L (96-108); Creatinine Clr Calc Pharmacy 88.8; Estimated Glomerular Filt Rate > 60; Glucose Random 269 mg/dL (60-115); Magnesium 1.7 mg/dL (1.6-2.6); Phosphorus 2.6 mg/dL (2.7-4.5); Potassium 4.4 mmol/L (3.3-5.1); Sodium 139 mmol/L (135-145)
[2024-06-07 09:02] LABS: B Type Natriuretic Peptide 371 pg/mL (<100)
[2024-06-07 11:31] LABS: Glucose, Whole Blood 265 mg/dL (60-115)
[2024-06-07] MEDS: Furosemide 20 MG/2 ML VIAL IVPUSH (12:49)
--- NOTE | 2024-06-07 13:34 | HO.PM.IMPN ---
Subjective Subjective Date of Service: 06/07/24 Interval History: seen and examined this morning follow up for UTI on baseline o2, denies sob, reports dry cough Review of Systems Review of Systems: Yes all other systems are reviewed and are negative Constitutional Constitutional: Denies chills and Denies fever(s) Cardiovascular Cardiovascular: Denies chest pain, Denies palpitations, Denies dyspnea and Denies dyspnea on exertion Respiratory Respiratory: Reports cough, Denies dyspnea and Denies dyspnea on exertion Gastrointestinal Gastrointestinal: Denies abdominal pain, Denies nausea and Denies vomiting Endocrine Endocrine: Denies palpitations Physical Exam Vital Signs: Vital Signs: Last Vital Signs Temp 98.1 F 06/07/24 12:00 Pulse 75 06/07/24 12:00 Resp 14 06/07/24 12:00 BP 145/62 H 06/07/24 12:49 Pulse Ox 92 06/07/24 12:00 O2 Del Method Nasal Cannula 06/07/24 12:00 O2 Flow Rate 2 06/07/24 12:00 FiO2 30 05/31/24 21:00 Oxygen Flow Rate 2 05/31/24 03:55 BMI result Body Mass Index 36.1 Const: General: alert, awake and Physically active Nutritional Appearance: overweight Orientation/consciousness: patient oriented x3 Resp: Effort & Inspection: normal respiratory effort, able to speak in complete sentences, no respiratory distress and no use of accessory muscles Auscultation: no wheezes Cardio: Rate: regular rate GI: Palpation (GI): Soft to palpation and nontender Neuro: General: patient oriented x3, moves all extremities and CN's II-XI intact bilaterally Extrem: General: Yes no pedal edema Objective Data Active Medications Acetaminophen (Acetaminophen 325 Mg Tablet) 650 mg PO Q6H PRN PRN Reason: Pain, Moderate(Pain Scale 4-6) Last Admin: 06/04/24 12:08 Dose: 650 mg Documented By: TRISTIAN Acetaminophen/Butalbital/Caffeine (Butalb/Acetamin/Caff 50/325/40 Tablet) 1 tab PO Q4H PRN PRN Reason: migraines Last Admin: 06/07/24 08:49 Dose: 1 tab Documented By: EVAN Aspirin (Aspirin 81 Mg Tab.Chew) 81 mg PO DAILY NAYE Last Admin: 06/07/24 08:41 Dose: 81 mg Documented By: EVAN Folic Acid (Folic Acid 1 Mg Tablet) 1 mg PO DAILY [facility] Last Admin: 06/07/24 08:42 Dose: 1 mg Documented By: EVAN Furosemide (Furosemide 40 Mg Tablet) 40 mg PO DAILY [facility]; Protocol Last Admin: 06/04/24 08:39 Dose: 40 mg Documented By: TRISTIAN Gabapentin (Gabapentin 300 Mg Capsule) 300 mg PO TID [facility] Last Admin: 06/07/24 08:42 Dose: 300 mg Documented By: EVAN Guaifenesin (Guaifenesin La 600 Mg Tab.Er.12h) 600 mg PO BID [facility] Last Admin: 06/07/24 08:42 Dose: 600 mg Documented By: EVAN Heparin Sodium (Porcine) (Heparin Sodium,Porcine 5,000 Unit/Ml Vial) 5,000 unit SUBCUT Q8H [facility] Last Admin: 06/07/24 08:41 Dose: 5,000 unit Documented By: EVAN Insulin Glargine (Insulin Glargine,Hum.Rec.Anlog 100 Unit/Ml 10 Ml Vial) 15 unit SUBCUT BEDTIME [facility] Last Admin: 06/06/24 20:55 Dose: 15 unit Documented By: TINY Insulin Human Lispro (Insulin Lispro 100 Unit/Ml 3 Ml Vial) 0 unit SUBCUT QIDACHS [facility]; Protocol Last Admin: 06/07/24 12:52 Dose: 6 unit Documented By: EVAN Levofloxacin (Levofloxacin 500 Mg Tablet) 500 mg PO Q24H [facility] Last Admin: 06/07/24 08:42 Dose: 500 mg Documented By: EVAN Magnesium Oxide (Magnesium Oxide 400 Mg Tablet) 400 mg PO BIDPC [facility] Last Admin: 06/07/24 08:42 Dose: 400 mg Documented By: EVAN Methadone HCl (Methadone Hcl 20 Mg/2 Ml Oral.Conc) 115 mg PO DAILY@0800 [facility] Last Admin: 06/07/24 08:41 Dose: 115 mg Documented By: EVAN Co-signed By: BETH Metoprolol Succinate (Metoprolol Succinate Er 25 Mg Tab.Er.24h) 25 mg PO DAILY [facility]; Protocol Last Admin: 06/04/24 08:39 Dose: 25 mg Documented By: TRISTIAN Nicotine (Nicotine 21 Mg Patch.Td24) 21 mg TRANSDERMA DAILY [facility] Last Admin: 06/07/24 08:42 Dose: 21 mg Documented By: EVAN Nystatin (Nystatin Powder 15 Gm Bottle) 1 appl TOPICAL BID [facility]; Protocol Last Admin: 06/07/24 08:46 Dose: 1 appl Documented By: EVAN Omeprazole (Omeprazole 40 Mg Capsule.Dr) 40 mg PO DAILY@0630 [facility] Last Admin: 06/07/24 06:28 Dose: 40 mg Documented By: TINY Ondansetron HCl (Ondansetron Odt 4 Mg Tab.Rapdis) 4 mg TRANSLINGU Q6H PRN PRN Reason: Nausea and Vomiting Last Admin: 06/06/24 11:40 Dose: 4 mg Documented By: LELA Prazosin HCl (Prazosin Hcl 1 Mg Capsule) 1 mg PO BEDTIME [facility]; Protocol Last Admin: 06/03/24 21:25 Dose: 1 mg Documented By: BOBBY Quetiapine Fumarate (Quetiapine Fumarate 25 Mg Tablet) 12.5 mg PO Q4H PRN PRN Reason: anxiety Last Admin: 06/06/24 20:50 Dose: 12.5 mg Documented By: TINY Sertraline HCl (Sertraline Hcl 50 Mg Tablet) 50 mg PO DAILY [facility] Last Admin: 06/07/24 08:41 Dose: 50 mg Documented By: EVAN Sodium Chloride (0.9 % Sodium Chloride Flush 3 Ml Syringe) 3 ml IVFLUSH QSHIFT [facility] Last Admin: 06/07/24 08:40 Dose: 3 ml Documented By: EVAN Thiamine HCl (Thiamine Hcl 100 Mg Tablet) 100 mg PO DAILY [facility] Last Admin: 06/07/24 08:41 Dose: 100 mg Documented By: EVAN Trazodone HCl (Trazodone Hcl 50 Mg Tablet) 50 mg PO BEDTIME PRN PRN Reason: Insomnia Last Admin: 06/06/24 20:54 Dose: 50 mg Documented By: TINY Trazodone HCl (Trazodone Hcl 50 Mg Tablet) 50 mg PO BEDTIME PRN PRN Reason: sleep Last Admin: 06/06/24 20:54 Dose: 50 mg Documented By: TINY Valsartan (Valsartan 40 Mg Tablet) 20 mg PO DAILY [facility]; Protocol Last Admin: 06/04/24 08:39 Dose: 20 mg Documented By: TRISTIAN Labs 06/07/24 07:28 06/07/24 07:28 Labs: Laboratory Results - last 24 hr 06/06/24 06/06/24 06/07/24 16:01 20:43 07:15 MCV MCH MCHC RDW Plt Count MPV Immature Gran % (Auto) Neut % (Auto) Lymph % (Auto) [place] % (Auto) Eos % (Auto) Baso % (Auto) Lymph # (Auto) [place] # (Auto) Eos # (Auto) Baso # (Auto) Abs Immat Gran (auto) Absolute Neuts (auto) Absolute Nucleated RBC Nucleated RBC % (auto) Anion Gap Estim Creat Clear Calc Estimated GFR POC Glucose 245 H 282 H 247 H Random Glucose Calcium Phosphorus Magnesium B-Natriuretic Peptide 06/07/24 06/07/24 07:28 11:23 MCV 99.6 H MCH 30.2 MCHC 30.3 L RDW 14.2 Plt Count 242 MPV 10.5 Immature Gran % (Auto) 1.0 H Neut % (Auto) 80.0 H Lymph % (Auto) 13.4 L [place] % (Auto) 3.8 Eos % (Auto) 1.4 Baso % (Auto) 0.4 Lymph # (Auto) 1.1 L [place] # (Auto) 0.3 Eos # (Auto) 0.1 Baso # (Auto) 0.0 Abs Immat Gran (auto) 0.08 H Absolute Neuts (auto) 6.3 Absolute Nucleated RBC 0.000 Nucleated RBC % (auto) 0.0 Anion Gap 9 L Estim Creat Clear Calc 88.8 Estimated GFR > 60 POC Glucose 265 H Random Glucose 269 H Calcium 9.7 Phosphorus 2.6 L Magnesium 1.7 B-Natriuretic Peptide 371 H Assessment and Plan (1) UTI (urinary tract infection): Status: Acute Plan This is a 58-year-old female with PMH of DM, COPD and chronic respiratory failure with hypoxia on 2L NC, CHF, chronic opiate dependence on methadone who presented with a several day history of poor oral intake, dysuria and worsening right lower extremity pain/weakness. She reports decreased appetite and urinary symptoms. In the emergency room, the patient was found to have a UA concerning for urinary tract infection. Furthermore, she has bilateral lower extremity erythema, warmth, tenderness as well as skin breakdown/erythema of the buttock region. She was found to have acute kidney injury with a serum creatinine of 1.7, baseline is around 0.7. Mag is low at 1.3. She was also hypotensive in the 80s to 90s systolic. She has been given a 30 cc/kg bolus, IV Zosyn, IV magnesium, IV Zofran and admission has been requested. She was briefly admitted to the hospitalist service. shortly after admission, her blood pressure remained persistently low and she was subsequently transferred to the ICU for vasopressor support. She was downgraded to the medical floor 06/01 after being successfully weaned off of pressors from septic shock due to UTI and cellulitis septic shock due to UTI final urine culture growing Klebsiella and Pseudomonas aeruginosa abx changed to Levaquin blood cultures negative to date Hypomag resolved with replacement HENRY. Resolved likely due to above resolved with IVF Acute on chronic anemia no acute blood loss likely due to sepsis currently above transfusion threshold H/H stable OUD continue baseline methadone COPD/chronic resp failure with hypoxia on her baseline 2L continue baseline meds HFpEF echo from 2022 showing preserved EF lasix was held, now with increasing edema on CXR - will give dose of IV lasix and resume home dose of po lasix tobacco use disorder NRT DM2 hold metformin sliding scale continue gabapentin Mental health Continue home medications DISPO PT rec STR; pt refusing STR Full Code DVT pptx - heparin Quality Stroke Does the patient have a stroke diagnosis?: No Reason for No Anti-thrombotic by Day Two: Not indicated VTE Prior VTE?: No VTE Risk Level:: Medical - moderate - high VTE Device Contraindication: N/A - Device Ordered VTE Drug Contraindication: N/A - Med Ordered
[2024-06-07 14:31] LABS: Adenovirus PCR Not Detected (Not Detect.); Bordetella parapertussis PCR Not Detected (Not Detect.); Bordetella pertussis PCR Not Detected (Not Detect.); Chlamydia pneumoniae PCR Not Detected (Not Detect.); Coronavirus 229E PCR Not Detected (Not Detect.); Coronavirus HKU1 PCR Not Detected (Not Detect.); Coronavirus NL63 PCR Not Detected (Not Detect.); Coronavirus OC43 PCR Not Detected (Not Detect.); Human metapneumovirus PCR Not Detected (Not Detect.); Influenza A PCR Not Detected (Not Detect.); Influenza B PCR Not Detected (Not Detect.); Mycoplasma pneumoniae PCR Not Detected (Not Detect.); Parainfluenza 1 PCR Not Detected (Not Detect.); Parainfluenza 2 PCR Not Detected (Not Detect.); Parainfluenza 3 PCR Not Detected (Not Detect.); Parainfluenza 4 PCR Not Detected (Not Detect.); RSV PCR Not Detected (Not Detect.); Rhino/Enterovirus PCR Not Detected (Not Detect.)
[2024-06-07 14:42] LABS: SARS-CoV-2 PCR Not Detected (Not Detect.)
[2024-06-07 16:26] LABS: Glucose, Whole Blood 215 mg/dL (60-115)
[2024-06-07] MEDS: Simethicone 80 MG TAB.CHEW PO ×2 (16:41→22:09)
[2024-06-07 21:24] LABS: Glucose, Whole Blood 243 mg/dL (60-115)
[2024-06-07] MEDS: traZODone HCL 50 MG TABLET PO (22:07)
[2024-06-07] MEDS: QUEtiapine Fumarate 25 MG TABLET 12.5 MG PO (22:07)
[2024-06-07] MEDS: Insulin Glargine,Hum.rec.anlog 100 UNIT/ML 10 ML VIAL 15 UNIT SUBCUT (22:08)
[2024-06-08] VITALS (7 sets, daily range): BP systolic 100–131; BP diastolic 52–72; PULSE 75–86; RESP 16–18; TEMP 36.1–37.1; O2SAT 91–95
[2024-06-08] MEDS: Omeprazole 40 MG CAPSULE.DR PO (05:15)
[2024-06-08] MEDS: Heparin Sodium,Porcine 5,000 UNIT/ML VIAL 5000 UNIT SUBCUT ×3 (05:18→17:17)
[2024-06-08 07:38] LABS: Creatinine Clr Calc Pharmacy 83.9; Estimated Glomerular Filt Rate > 60
[2024-06-08 07:56] LABS: Glucose, Whole Blood 257 mg/dL (60-115)
[2024-06-08 08:15] LABS: Anion Gap 14 (12-20); Blood Urea Nitrogen 13 mg/dL (9-16); Calcium 10.1 mg/dL (8.4-10.2); Carbon Dioxide 35 mmol/L (22-29); Chloride 97 mmol/L (96-108); Glucose Random 260 mg/dL (60-115); Potassium 4.6 mmol/L (3.3-5.1); Sodium 141 mmol/L (135-145)
[2024-06-08] MEDS: Insulin Lispro 100 UNIT/ML 3 ML VIAL SUBCUT ×4 (08:30→20:56)
[2024-06-08] MEDS: Magnesium Oxide 400 MG TABLET PO ×2 (08:47→17:17)
[2024-06-08] MEDS: Aspirin 81 MG TAB.CHEW PO (08:47)
[2024-06-08] MEDS: Gabapentin 300 MG CAPSULE PO ×3 (08:47→20:55)
[2024-06-08] MEDS: Sertraline HCL 50 MG TABLET PO (08:47)
[2024-06-08] MEDS: Folic Acid 1 MG TABLET PO (08:47)
[2024-06-08] MEDS: levoFLOXacin 500 MG TABLET PO (08:47)
[2024-06-08] MEDS: guaiFENesin LA 600 MG TAB.ER.12H PO ×2 (08:47→20:55)
[2024-06-08] MEDS: Thiamine HCL 100 MG TABLET PO (08:48)
[2024-06-08] MEDS: methADONE HCl 20 MG/2 ML ORAL.CONC 115 MG PO (08:48)
[2024-06-08] MEDS: 0.9 % Sodium Chloride Flush 3 ML SYRINGE IVFLUSH ×2 (08:50→17:20)
[2024-06-08] MEDS: Nicotine 21 MG PATCH.TD24 TRANSDERMA (08:50)
--- NOTE | 2024-06-08 12:14 | P.DS_ITS ---
DS: Providers Provider Date of Service: 06/09/24 Date of admission: 05/31/24 10:02 Date of discharge: 06/09/24 Primary care physician: Ward Richter MD Consults: 05/31/24 10:02 Consult to Wound Care Routine Reason for consultation: Maceration to Buttocks, ?cellulitis to B/L lower extremity Attending physician on discharge: Trenton Chinchilla Discharging clinician: Geraldine King DS: Diagnosis Discharge Diagnosis (1) UTI (urinary tract infection): Status: Acute DS: Summary Hospital Course Hospital Course: History and physical as per admitting provider. The patient is a 58-year-old female with a past medical history of diabetes mellitus, COPD and chronic respiratory failure with hypoxia, CHF, chronic opiate dependence on methadone, and others who presented to [facility] ED with a several day history of poor oral intake, dysuria and worsening right lower extremity pain/weakness. The patient reports that she was hospitalized at [facility] for several weeks where she was treated for COPD, sepsis, respiratory failure requiring mechanical ventilation. She reports that she was discharged 3 days prior to this hospitalization and since being home she has continued to worsen. She reports that she has had a decreased appetite and oral intake but denies abdominal pain, nausea, vomiting. She reports right leg pain and weakness which have been persistent since her [facility] hospitalization. She reports worsening erythema bilaterally. Upon further questioning, she endorses urinary frequency and dysuria of 2 days' duration. She denies any flank pain. Patient reports subjective fevers without chills. She denies EtOh/substance use (prior documentation shows polysubstance use) In the emergency room, the patient was found to have a UA concerning for urinary tract infection. Furthermore, she has bilateral lower extremity erythema, warmth, tenderness as well as skin breakdown/erythema of the buttock region. She was found to have acute kidney injury with a serum creatinine of 1.7, baseline is around 0.7. Mag is low at 1.3. She was also hypotensive in the 80s to 90s systolic. She has been given a 30 cc/kg bolus, IV Zosyn, IV magnesium, IV Zofran and admission has been requested. Patient is seen and examined in the emergency room around 09:45. Her blood pressure is ranging from 90s to 100 systolic. She is completely asymptomatic in this regard. She is requesting her methadone. Informed by RN around 10:15 the patient's BP was in the 70s and 60 systolic. Patient re- evaluated shortly there after. BP manually checked in he 80s/40s, no tachycardia. Pt again denies symptoms of hypotension and is awake. Given persistent low BP -- will ask manager fiber to evaluate for ICU level of care. Manuelito peña check CXR and give dose of vancomcyin. 58-year-old woman treated for weakness and dysuria. Blood cultures have remained negative. She was also noted to have erythema to buttock region. She was also noted to have acute kidney injury resolved with IV fluids and renally dosed medications. She was initially hypotensive and given 30 mL/kg IV fluid bolus just after admission her blood pressure remained low and she was transferred to the ICU for vasopressor support. She was downgraded to the medical floor on 06/01/2024 after being successfully weaned off of pressors and treated for septic shock secondary to UTI and cellulitis. Status post pressors in the ICU she was initially treated with IV vanco Zosyn and clindamycin. Urine culture grew Pseudomonas aeruginosa, Klebsiella and antibiotics were switched to Levaquin. She had multiple episodes of hypomagnesemia replace with IV and p.o.. Acute on chronic anemia with no blood loss likely secondary to sepsis, stable CBC. The patient was seen evaluated by Physical therapy with recommendation for short-term rehab however patient was on methadone and it was difficult to find rehab facilities accept patients on this medication. There are short-term rehab facilities in [place] but patient refuses to go that far. She reported that she would be okay with going home and having physical therapy continued. Hospital course by problem: septic shock due to UTI final urine culture growing Klebsiella and Pseudomonas aeruginosa. abx changed to Levaquin. blood cultures negative to date Hypomag resolved with replacement HENRY. resolved with IVF Acute on chronic anemia no acute blood loss. likely due to sepsis. remains above transfusion threshold. H/H has remained stable. OUD continue baseline methadone COPD/chronic resp failure with hypoxia. saturating well on her baseline 2L. HFpEF echo from 2022 showing preserved EF. lasix was held, now with increasing edema on CXR, received a dose of IV lasix and then resumed on low dose po lasix. blood pressures have been soft, will stop valsartan for now and reduce dose of lasix. recommend close outpatient follow up with PCP Diabetes mellitus type 2. Continue metformin Tobacco use. Nicotine replacement as needed Substance abuse history. Continue methadone patient was supposed to be discharged 06/08 but did not go due to technical issues. no events overnight. patient awake and alert his am, feeling well, no sob at baseline o2; stable for discahrge home to resume home PT,OT, vna services. Time Attestation Discharge Coordination Time (in mins): 36 Quality: Safe Use of Opioids Does Pt have an Active Cancer Diagnosis on the Problem List?: No Quality: Stroke Does the patient have a stroke diagnosis?: No Physical Exam Vital Signs: Vital Signs: Last Vital Signs Temp 97.7 F 06/08/24 12:00 Pulse 78 06/08/24 12:00 Resp 16 06/08/24 07:30 BP 108/55 L 06/08/24 12:00 Pulse Ox 91 L 06/08/24 12:00 O2 Del Method Room Air 06/08/24 12:00 O2 Flow Rate 2 06/08/24 07:30 FiO2 30 05/31/24 21:00 Oxygen Flow Rate 2 05/31/24 03:55 BMI result Body Mass Index 36.1 Const: General: cooperative, comfortable, no acute distress, alert and awake Nutritional Appearance: obese Orientation/consciousness: patient oriented x3 Resp: Effort & Inspection: normal respiratory effort, able to speak in complete sentences, no respiratory distress and no use of accessory muscles Cardio: Rate: regular rate Neuro: General: patient oriented x3, moves all extremities and CN's II-XI intact bilaterally DS: Data Data Completed and Pending Completed studies during hospitalization [Text1]: Procedures Assistance with Respiratory Ventilation, Less than 24 Consecutive Hours, Continuous Positive Airway Pressure (03/15/23) Detoxification Services for Substance Abuse Treatment (03/15/23) Labs on day of discharge: Laboratory Results - last 24 hr 06/06/24 06/07/24 06/07/24 17:40 16:06 20:16 Hold Purple Top Sodium Potassium Chloride Carbon Dioxide Anion Gap BUN Creatinine Estim Creat Clear Calc Estimated GFR POC Glucose 215 H 243 H Random Glucose Calcium Respiratory Panel Vergara See Note Adenovirus (Rapid PCR) Not Detected B.pert (TEM-PCR) Not Detected B.parapertussis DNA PCR Not Detected C. pneumoniae DNA (PCR) Not Detected Coronavirus OC43 (PCR) Not Detected Coronavirus HKU1 (PCR) Not Detected Coronavirus 229E (PCR) Not Detected Coronavirus NL63 (PCR) Not Detected Human Metapneumovir PCR Not Detected Influenza A (RT-PCR) Not Detected Influenza B (RT-PCR) Not Detected M. pneumoniae (PCR) Not Detected Parainfluenza 1 (PCR) Not Detected Parainfluenza 2 (PCR) Not Detected Parainfluenza 3 (PCR) Not Detected Parainfluenza 4 (PCR) Not Detected RSV (PCR) Not Detected Entero/Rhino (PCR) Not Detected SARS-CoV-2 RNA (RT-PCR) Not Detected 06/08/24 06/08/24 06:39 07:29 Hold Purple Top SEE NOTE Sodium 141 Potassium 4.6 Chloride 97 Carbon Dioxide 35 H Anion Gap 14 BUN 13 Creatinine 0.73 Estim Creat Clear Calc 83.9 Estimated GFR > 60 POC Glucose 257 H Random Glucose 260 H Calcium 10.1 Respiratory Panel Vergara Adenovirus (Rapid PCR) B.pert (TEM-PCR) B.parapertussis DNA PCR C. pneumoniae DNA (PCR) Coronavirus OC43 (PCR) Coronavirus HKU1 (PCR) Coronavirus 229E (PCR) Coronavirus NL63 (PCR) Human Metapneumovir PCR Influenza A (RT-PCR) Influenza B (RT-PCR) M. pneumoniae (PCR) Parainfluenza 1 (PCR) Parainfluenza 2 (PCR) Parainfluenza 3 (PCR) Parainfluenza 4 (PCR) RSV (PCR) Entero/Rhino (PCR) SARS-CoV-2 RNA (RT-PCR) Discharge Plan Discharge Anticipated Discharge Date/Time: 06/08/24 12:27 Patient Disposition: Home Health Service Discharge Diagnosis: Acute hypoxic respiratory failure HENRY Hypomagnesemia Pseudomonas, Klebsiella aeruginosa UTI COPD exacerbation Referrals: Carlie Jorge [Outside] - 1 Day (RESUMPTION OF CARE ) Ward Richter MD [Primary Care Provider] - 1 Week Discharge Medications: New levofloxacin 500 mg Tablet 500 mg PO Q24H Qty: 4 0RF furosemide [Lasix] 20 mg tablet 20 mg PO DAILY Qty: 90 0RF Continued (DME) cane Device See Rx Instructions .Route Qty: 1 0RF Rx Instructions: As directed (DME) GRAB BAR See Rx Instructions .Route .MEDSUPPLY Qty: 1 0RF Rx Instructions: As directed sertraline 50 mg tablet 50 mg PO DAILY Qty: 30 2RF albuterol sulfate [Ventolin HFA] 90 mcg/actuation HFA aerosol inhaler 2 puff inhalation Q6H PRN (Reason: for wheezing) Qty: 8.5 0RF aspirin 81 mg tablet,delayed release (DR/EC) 81 mg PO DAILY Qty: 90 3RF (DME) FreeStyle Lite Strips Strip Qty: 100 12RF Rx Instructions: Test four times a day or as directed. clotrimazole 1 % cream 1 appl topical BID Qty: 30 0RF (DME) FreeStyle Nathan 2 Keo Misc See Rx Instructions .ROUTE .MEDSUPPLY Qty: 1 0RF Rx Instructions: As directed check the BS TID (DME) FreeStyle Nathan 2 Sensor Kit See Rx Instructions .ROUTE .MEDSUPPLY Qty: 6 6RF Rx Instructions: As directed check the BS TID folic acid 1 mg tablet 1 mg PO DAILY Qty: 90 0RF (DME) insulin syringe-needle U-100 [BD Insulin Syringe Ultra-Fine] 1 mL 31 gauge x 5/16 syringe See Rx Instructions .Route Qty: 100 8RF Rx Instructions: As directed 4 times per day (DME) lancets [FreeStyle Lancets] 28 gauge misc Qty: 100 8RF Rx Instructions: Test four times a day or as directed. magnesium oxide 400 mg (241.3 mg magnesium) tablet 400 mg PO DAILY@0730 Qty: 90 0RF metformin 500 mg tablet 500 mg PO BID Qty: 180 8RF nystatin 100,000 unit/gram powder 1 appl topical BID Qty: 30 0RF (DME) Oxygen Home Use Kit See Rx Instructions .ROUTE .MEDSUPPLY Qty: 1 12RF Rx Instructions: 2L nasal cannula continuous (DME) pen needle, diabetic [BD Ultra-Fine Micro Pen Needle] 32 gauge x 1/4 needle See Rx Instructions .Route Qty: 100 8RF Rx Instructions: test 4 times per day polyethylene glycol 3350 17 gram powder in packet 17 g PO DAILY PRN (Reason: Constipation) Qty: 100 0RF thiamine mononitrate (vit B1) 100 mg tablet 100 mg PO DAILY Qty: 90 0RF (DME) blood-glucose meter [FreeStyle Lite Meter] Kit Qty: 1 0RF Rx Instructions: As Directed (DME) compress.stocking,knee,reg,med Misc See Rx Instructions .Route Qty: 12 0RF Rx Instructions: As directed 20-30 mm HG (DME) Wings Choice Plus Adult Briefs Misc See Rx Instructions .Route Qty: 60 0RF Rx Instructions: As directed docusate sodium [Colace] 100 mg capsule 100 mg PO BID PRN (Reason: Constipation) Qty: 90 0RF mirtazapine 30 mg tablet 30 mg PO BEDTIME 30 Days Qty: 30 1RF omeprazole 40 mg capsule,delayed release(DR/EC) 40 mg PO DAILY@0630 Qty: 90 2RF ondansetron 4 mg tablet,disintegrating 4 mg PO Q8H PRN (Reason: nausea and vomiting) Qty: 20 0RF trazodone 50 mg tablet 50 mg PO BEDTIME PRN (Reason: sleep) Qty: 90 0RF Anoro Ellipta 62.5-25 mcg/actuation blister with device 1 ea inhalation DAILY Qty: 60 12RF insulin glargine [Lantus Solostar U-100 Insulin] 100 unit/mL (3 mL) insulin pen 15 unit SUBCUT BEDTIME 30 Days Qty: 4.5 0RF dapagliflozin propanediol [Farxiga] 10 mg tablet 10 mg PO DAILY Qty: 30 0RF (DME) Adult pull ups large See Rx Instructions .Route .MEDSUPPLY Qty: 300 3RF Rx Instructions: As directed ipratropium-albuterol 0.5 mg-3 mg(2.5 mg base)/3 mL solution for nebulization 3 ml inhalation Q4-6H PRN (Reason: shortness of breath or wheezing) Qty: 180 0RF methadone [Methadone Intensol] 10 mg/mL Concentrate 115 mg PO DAILY (DME) pulse oximeter See Rx Instructions Rx Instructions: As directed metoprolol succinate 25 mg Tablet Extended Release 24 Hr 25 mg PO DAILY quetiapine 25 mg tablet 12.5 mg PO Q4H PRN (Reason: anxiety) gabapentin 300 mg capsule 300 mg PO TID insulin lispro [Humalog KwikPen Insulin] 100 unit/mL insulin pen 5 unit subcut TID Discontinued valsartan 40 mg Tablet 20 mg PO DAILY prazosin 1 mg capsule 1 mg PO BEDTIME Protocol: Hold for SBP< HOLD for SBP < : 90 Discharge Orders: Discharge Order (Routine); Ordered 06/08/24 Ordered By: Geraldine King Diet: Advance to usual diet Activity on Discharge: As tolerated Stand Alone Forms: Patient Portal Discharge page Print Language: Hong [place]er Care Plan Goals: see below Health Concerns: Acute hypoxic respiratory failure HENRY Hypomagnesemia Pseudomonas, Klebsiella aeruginosa UTI COPD exacerbation Plan of Treatment: call to schedule Follow up with appointment with primary care provider see medication adjustments as above lasix reduced to 20 mg; stop losartan for now, stop prazosin Complete antibiotics for UTI resume lasix on Tuesday follow low sodium diet, daily weight Assessment: See discharge summary
[2024-06-08 12:26] LABS: Glucose, Whole Blood 255 mg/dL (60-115)
--- NOTE | 2024-06-08 12:37 | MHC.CM.PN ---
Addendum entered by Sujey Wayne RN 06/08/24 16:53: DC PUSHED BACK UNTIL TOMORROW 06/09 AT 8AM D/T NO ONE BEING HOME UNTIL THEN TO MEET PT, TRANSPORT CHANGED W/DISPATCH. Original Note: PT MEDICALLY CLEARED FOR DC HOME W/RESUMP OF [facility] AND MANUFACTURING RECRUITER ABIMAEL BOYD FOR BLS TRANSPORT HOME
[2024-06-08 16:39] LABS: Glucose, Whole Blood 217 mg/dL (60-115)
[2024-06-08 20:29] LABS: Glucose, Whole Blood 257 mg/dL (60-115)
[2024-06-08] MEDS: traZODone HCL 50 MG TABLET PO (20:55)
[2024-06-08] MEDS: QUEtiapine Fumarate 25 MG TABLET 12.5 MG PO (20:55)
[2024-06-08] MEDS: Insulin Glargine,Hum.rec.anlog 100 UNIT/ML 10 ML VIAL 15 UNIT SUBCUT (20:56)
[2024-06-08] MEDS: Nystatin Powder 15 GM BOTTLE 1 APPL TOPICAL (20:56)
[2024-06-09] VITALS: BP 124/60; PULSE 68; RESP 16; TEMP 36.9; O2SAT 92
[2024-06-09] MEDS: Omeprazole 40 MG CAPSULE.DR PO (03:08)
[2024-06-09] MEDS: Butalb/Acetamin/Caff 50/325/40 TABLET 1 TAB PO (03:08)
[2024-06-09] MEDS: Heparin Sodium,Porcine 5,000 UNIT/ML VIAL 5000 UNIT SUBCUT (03:08)
[2024-06-09 03:37] VITALS: BP 119/55; PULSE 75; RESP 16; TEMP 36.6; O2SAT 94
[2024-06-09 07:10] LABS: Glucose, Whole Blood 213 mg/dL (60-115)
[2024-06-09 07:25] VITALS: BP 118/59; PULSE 76; RESP 18; TEMP 36.6; O2SAT 94
[2024-06-09 07:38] LABS: Creatinine Clr Calc Pharmacy 85.1; Estimated Glomerular Filt Rate > 60
[2024-06-09] MEDS: Aspirin 81 MG TAB.CHEW PO (08:10)
[2024-06-09] MEDS: Magnesium Oxide 400 MG TABLET PO (08:10)
[2024-06-09] MEDS: guaiFENesin LA 600 MG TAB.ER.12H PO (08:10)
[2024-06-09] MEDS: Folic Acid 1 MG TABLET PO (08:10)
[2024-06-09] MEDS: Gabapentin 300 MG CAPSULE PO (08:11)
[2024-06-09] MEDS: Thiamine HCL 100 MG TABLET PO (08:11)
[2024-06-09] MEDS: Furosemide 40 MG TABLET PO (08:11)
[2024-06-09] MEDS: levoFLOXacin 500 MG TABLET PO (08:11)
[2024-06-09] MEDS: Acetaminophen 325 MG TABLET 650 MG PO (08:11)
[2024-06-09] MEDS: Metoprolol Succinate ER 25 MG TAB.ER.24H PO (08:11)
[2024-06-09] MEDS: Sertraline HCL 50 MG TABLET PO (08:11)
[2024-06-09] MEDS: Insulin Lispro 100 UNIT/ML 3 ML VIAL SUBCUT (08:12)
[2024-06-09] MEDS: methADONE HCl 20 MG/2 ML ORAL.CONC 115 MG PO (08:12)
[2024-06-09] MEDS: Nicotine 21 MG PATCH.TD24 TRANSDERMA (08:13)
[2024-06-09] MEDS: 0.9 % Sodium Chloride Flush 3 ML SYRINGE IVFLUSH (08:13)
--- NOTE | 2024-06-09 08:21 | P.CDIM_ITS ---
PROVIDER RESPONSE TEXT: To clarify, the appropriate diagnosis supported by the clinical indicators: Acute on chronic QUERY TEXT: PHYSICIAN'S DOCUMENTATION REQUEST Date of Query: 06/08/2024 09:52 AM EST Patient Name: Keturah Sanon Admit Date: 05/31/2024 Dear Geraldine YA, A review of the medical record indicates additional documentation may be needed. Please review below and update the documentation accordingly. Clinical Indicators: Per Hospitalist Progress Note 06/07/24: HFpEF as per ECHO from 2022 Lasix was held, CXR: increasing edema dose of IV Lasix and resume home dose of oral Lasix Clarify which of the following accurately represents the acuity of the HFpEF. Possible options might include: Acute Acute on chronic Compensated Chronic stable condition Remission Other (explain) Clinically unable to determine (explain) Thank you, Suzanne Berman RN Use of terms such as suspected, likely, concern for, or probable (associated with a specific diagnosi s that is being evaluated, monitored, or treated as if it exists) are acceptable and can be coded in the inpatient se tting, when documented at the time of discharge. Please use your independent medical judgment in providing your response. THIS QUERY IS PART OF THE PERMANENT MEDICAL RECORD
--- NOTE | 2024-06-09 15:25 | MHC.CM.PN ---
Pt medically cleared for discharge home today with resumption of previous [facility] services, pt transported home via [facility].
--- NOTE | 2024-06-24 16:56 | P.CDIM_ITS ---
PROVIDER RESPONSE TEXT: To clarify, the appropriate diagnosis supported by the clinical indicators: Cellulitis bilateral lower extremities remains a known or suspected condition for this patient QUERY TEXT: PHYSICIAN'S DOCUMENTATION REQUEST Date of Query: 06/18/2024 12:57 PM EST Patient Name: Keturah Sanon Admit Date: 05/31/2024 Dear Geraldine YA, A review of the medical record indicates additional documentation may be needed. Please review below and update the documentation accordingly. The purpose of this query is not to question medical judgment, but to ensure the accuracy of the cond itions reported for your patient. There is documented in the record on the Discharge Summary 06/09/24 stating consult to wound care for reason of ? cellulitis to bilateral lower extremities. There is either a lack of clinical support for this condition in the [facility] medical record, or there is a lack of recognized standard criteria to support the condition. Clinical Indicators: patient reports worsening erythema bilateral legs she has bilateral lower extremity erythema, warmth, tenderness the wound note did not document findings regarding bilateral lower extremities ICU note 05/31/24 states concern for cellulitis, however, location was not specified Please clarify the documentation of cellulitis location: Cellulitis bilateral lower extremities remains a known or suspected condition for this patient Cellulitis bilateral lower extremities has been ruled out and a more appropriate diagnosis for this p atient's condition is Other (explain) Clinically unable to determine (explain) Thank you, Suzanne Berman RN Use of terms such as suspected, likely, concern for, or probable (associated with a specific diagnosi s that is being evaluated, monitored, or treated as if it exists) are acceptable and can be coded in the inpatient se tting, when documented at the time of discharge. Please use your independent medical judgment in providing your response. THIS QUERY IS PART OF THE PERMANENT MEDICAL RECORD
== END 2024-06-09 08:37 | disposition home health service (06) | DRG 720 ==
LOC: HO.ED 06:09 → HO.EDOVER 10:08 → HO.ICU 12:12 → HO.IMC 06-01 16:59
PROVIDERS: Internal Medicine Critical Care Medicine; Nurse Practitioner Acute Care; Admitting Provider Family Medicine; Emergency Provider Emergency Medicine Emergency Medical Services; PCP Internal Medicine; Visit Provider Physician Assistant Medical
DX: A41.9 Sepsis, unspecified organism (principal); J96.21 Acute and chronic respiratory failure with hypoxia; R65.21 Severe sepsis with septic shock; I50.33 Acute on chronic diastolic (congestive) heart failure; N17.9 Acute kidney failure, unspecified; I11.0 Hypertensive heart disease with heart failure; J18.9 Pneumonia, unspecified organism; Z99.81 Dependence on supplemental oxygen; F10.10 Alcohol abuse, uncomplicated; F11.20 Opioid dependence, uncomplicated; F19.10 Other psychoactive substance abuse, uncomplicated; B96.5 Pseudomonas (aeruginosa) (mallei) (pseudomallei) as the cause of diseases classified elsewhere; J44.0 Chronic obstructive pulmonary disease with (acute) lower respiratory infection; J44.1 Chronic obstructive pulmonary disease with (acute) exacerbation; N39.0 Urinary tract infection, site not specified; E83.42 Hypomagnesemia; L03.116 Cellulitis of left lower limb; L03.115 Cellulitis of right lower limb; D64.9 Anemia, unspecified; F17.210 Nicotine dependence, cigarettes, uncomplicated; Z20.822 Contact with and (suspected) exposure to COVID-19; Z71.6 Tobacco abuse counseling; Z79.4 Long term (current) use of insulin; Z79.82 Long term (current) use of aspirin; Z79.84 Long term (current) use of oral hypoglycemic drugs; Z79.899 Other long term (current) drug therapy
CPT/HCPCS: 36415; 71045; 80048; 80053; 80202; 81001; 82565; 82947; 83605; 83735; 83880; 84100; 85025; 85652; 86140; 87040; 87086; 87088; 87186; 87633; 93005; 94640; 97162; 99285; J0613; J0692; J0736; J1644; J1940; J2405; J2543; J3370; J3371; J3475; J7120; P9047

== ENCOUNTER → 2024-05-31 04:13 | Outpatient (BNV) | payer OTHER, SELFPAY | PROVIDERS: Admitting Provider Family Medicine; Emergency Provider Emergency Medicine Emergency Medical Services; PCP Internal Medicine; Visit Provider Internal Medicine Cardiovascular Disease | DX: R94.31 Abnormal electrocardiogram [ECG] [EKG] (principal) | CPT/HCPCS: 93010 ==

== ENCOUNTER 2024-05-31 10:02 | Outpatient (BNV) | payer OTHER, SELFPAY | END 2024-06-06 09:10 | PROVIDERS: Admitting Provider Family Medicine; Emergency Provider Emergency Medicine Emergency Medical Services; PCP Internal Medicine; Visit Provider Radiology Diagnostic Radiology | DX: J98.11 Atelectasis (principal) | CPT/HCPCS: 71045 ==

== ENCOUNTER 2024-05-31 10:02 | Outpatient (BNV) | payer OTHER, SELFPAY | END 2024-05-31 13:25 | PROVIDERS: Admitting Provider Family Medicine; Emergency Provider Emergency Medicine Emergency Medical Services; PCP Internal Medicine; Visit Provider Radiology Diagnostic Radiology | DX: I51.7 Cardiomegaly (principal); J98.11 Atelectasis; R91.8 Other nonspecific abnormal finding of lung field | CPT/HCPCS: 71045 ==

== ENCOUNTER → 2024-05-31 10:02 | Outpatient (BNV) | payer OTHER, SELFPAY | PROVIDERS: Admitting Provider Family Medicine; Emergency Provider Emergency Medicine Emergency Medical Services; PCP Internal Medicine; Visit Provider Physician Assistant Medical | DX: N39.0 Urinary tract infection, site not specified (principal) | CPT/HCPCS: 99232; 99239; 99499 ==

== ENCOUNTER 2024-06-11 15:39 | Emergency (ER) | payer OTHER, SELFPAY ==
[2024-06-11 15:54] VITALS: BP 111/65; PULSE 105; RESP 18; TEMP 36.6; O2SAT 97
--- NOTE | 2024-06-11 15:55 | ED.GENADULT ---
HPI - General Adult General Chief complaint: Weakness Stated complaint: leg weakness since tuesday, back pain Time Seen by Provider: 06/11/24 15:55 History of Present Illness ED Provider: Nino VERA narrative: The patient is a 58-year-old woman with multiple medical problems who was recently hospitalized for urosepsis. She was discharged from the hospital 2 days ago. While she was in the hospital it was advised that she go to a rehab facility following her 10 day hospitalization. However the patient is on methadone and few rehab facilities accept the patient is on methadone. There was concerned that the closest rehab place that might take her would be in [place] and the patient did not wish to go that far. Instead the patient chose to go home. The patient says that since getting home she has been too weak to function at home. Specifically she says that her legs have been too weak for her to be able to walk. She says that both legs are weak and that they are equally weak. She says that she can move her legs in bed but they do not have the strength of bear her weight when she stands. She does not have any numbness or tingling in her feet. She says that she can control her urine but can not get to the bathroom. She has also been too weak to get to her methadone Clinic. Today she felt she could not manage at home any longer and she returned to the hospital by ambulance. She has 2 grown sons who live at home with her. She has not had any fevers. She says that she has been incontinent of urine because she has not been able to walk because of weakness. The patient is on oxygen at home. She does not have any new shortness of breath. No nausea or vomiting. No abdominal pain. No chest pain. The patient was prescribed levofloxacin and furosemide at discharge. She says she has been taking these medications. Related Data Home Medications ?Medication ?Instructions ?Recorded ?Confirmed methadone 10 mg/mL oral 115 mg PO DAILY 02/02/22 06/11/24 concentrate (Methadone Intensol) pulse oximeter 02/03/22 01/31/24 gabapentin 300 mg capsule 300 mg PO TID 05/31/24 06/11/24 insulin lispro 100 unit/mL 5 unit subcut TID 05/31/24 06/11/24 subcutaneous pen (Humalog KwikPen (U-100) Insulin) metoprolol succinate 25 mg 25 mg PO DAILY 05/31/24 06/11/24 tablet,extended release 24 hr quetiapine 25 mg tablet 12.5 mg PO Q4H PRN anxiety 05/31/24 06/11/24 valsartan 40 mg tablet 20 mg DAILY 06/11/24 06/11/24 Previous Rx's ?Medication ?Instructions ?Recorded cane #1 ea 10/16/21 GRAB BAR #1 ea 12/26/23 sertraline 50 mg tablet 50 mg PO DAILY #30 tabs 02/12/24 Oxygen Home Use #1 ea 03/19/24 albuterol sulfate 90 mcg/actuation 2 puff inhalation Q6H PRN for 03/19/24 aerosol inhaler (Ventolin HFA) wheezing #8.5 grams aspirin 81 mg tablet,delayed 81 mg PO DAILY #90 tabs 03/19/24 release blood sugar diagnostic (FreeStyle #100 ea 03/19/24 Lite Strips) blood-glucose meter (FreeStyle #1 ea 03/19/24 Lite Meter kit) clotrimazole 1 % topical cream 1 appl topical BID #30 grams 03/19/24 compress.stocking,knee,reg,med #12 ea 03/19/24 diaper,brief,adult,disposable #60 ea 03/19/24 (Wings Choice Plus Adult Briefs) docusate sodium 100 mg capsule 100 mg PO BID PRN Constipation #90 03/19/24 (Colace) caps flash glucose scanning reader #1 ea 03/19/24 (FreeStyle Nathan 2 Kiana) flash glucose sensor (FreeStyle #6 kits 03/19/24 Nathan 2 Sensor kit) folic acid 1 mg tablet 1 mg PO DAILY #90 tabs 03/19/24 insulin syringe-needle U-100 1 mL #100 ea 03/19/24 31 gauge x 5/16 (BD Insulin Syringe Ultra-Fine) lancets 28 gauge (FreeStyle #100 ea 03/19/24 Lancets) magnesium oxide 400 mg (241.3 mg 400 mg PO DAILY@0730 #90 tabs 03/19/24 magnesium) tablet metformin 500 mg tablet 500 mg PO BID #180 tabs 03/19/24 mirtazapine 30 mg tablet 30 mg PO BEDTIME 30 days #30 tabs 03/19/24 nystatin 100,000 unit/gram topical 1 appl topical BID #30 grams 03/19/24 powder omeprazole 40 mg capsule,delayed 40 mg PO DAILY@0630 #90 caps 03/19/24 release ondansetron 4 mg disintegrating 4 mg PO Q8H PRN nausea and 03/19/24 tablet vomiting #20 tabs pen needle, diabetic 32 gauge x #100 ea 03/19/2405/19 (BD Ultra-Fine Micro Pen Needle) polyethylene glycol 3350 17 gram 17 g PO DAILY PRN Constipation 03/19/24 oral powder packet #100 ea thiamine mononitrate (vit B1) 100 100 mg PO DAILY #90 tabs 03/19/24 mg tablet trazodone 50 mg tablet 50 mg PO BEDTIME PRN sleep #90 tabs 03/19/24 umeclidinium 62.5 mcg-vilanterol 1 ea inhalation DAILY #60 ea 03/19/24 25 mcg/actuation powdr for inhalation (Anoro Ellipta) insulin glargine 100 unit/mL (3 15 unit (0.15 mL) subcut BEDTIME 03/31/24 mL) subcutaneous pen (Lantus 30 days #4.5 mL Solostar U-100 Insulin) Adult pull ups #300 ea 04/10/24 dapagliflozin propanediol 10 mg 10 mg PO DAILY #30 tabs 04/10/24 tablet (Farxiga) ipratropium 0.5 mg-albuterol 3 mg 3 ml inhalation Q4-6H PRN 05/25/24 (2.5 mg base)/3 mL nebulization shortness of breath or wheezing soln #180 mL levofloxacin 500 mg tablet 500 mg PO Q24H #4 tabs 06/06/24 furosemide 20 mg tablet (Lasix) 20 mg PO DAILY #90 tabs 06/08/24 Allergies Allergy/AdvReac Type Severity Reaction Status Date / Time acetaminophen [Vicodin] Allergy Unknown Unknown Verified 06/11/24 16:03 hydrocodone [Vicodin] Allergy Unknown Unknown Verified 05/31/24 03:56 sumatriptan [From IMITREX] Allergy Unknown VOMITING,RA Verified 05/31/24 03:56 Review of Systems Review of Systems: Yes all other systems are reviewed and are negative PMFSH Past Medical History Medical History (Updated 06/11/24 @ 23:35 by Enrike Oneill MD) UTI (urinary tract infection) Polysubstance abuse CHF (congestive heart failure) Rash and nonspecific skin eruption Type 2 diabetes mellitus with hyperglycemia 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 Mother Diabetes Social History Social History (Updated 04/04/24 @ 15:08 by SAV العلي) Household Members: Family Household Members Other:: sons Housing: Apartment Are you a primary urgent care physician to a significant other at home: No Do you presently have visiting nurse or other home services: Yes Alcohol intake: former Comment: Pt refusing bed/chair alarm- steady on feet Patient Tobacco Use Status: Current everyday Tobacco user Tobacco use type: Cigarette Cigarette Packs Per Day: 1 Cigarettes Per Day: 20.0 Years Smoked: 30 Smoked in Last 30 Days: Yes e-Cigarette/Vaping Use: Never Used Second Hand Smoke Exposure: Yes Use of substances other than those prescribed or required for medical reasons: No Substance Use Type: Marijuana Advance Directives: Yes Advance Directives on File: Yes Advance Directives Date on File: 05/31/24 Patient : No service: No Current occupational status: disabled Sexual orientation: Straight/Heterosexual Gender identity: Female Cognitive needs: Yes Hearing needs: No Vision needs: No Physical Exam ED Vital Signs: Vital Signs - 24 hr 06/11/24 15:54 06/11/24 21:14 Temperature 97.9 F 98.0 F Pulse Rate 105 H 9 L Respiratory Rate 18 20 Blood Pressure 111/65 96/46 L Pulse Oximetry 97 95 Oxygen Delivery Method Nasal Cannula Nasal Cannula Oxygen Flow Rate 2 2 BMI result Body Mass Index 36.6 Const Other: The patient is a chronically ill-appearing 58-year-old. She is awake and alert with a normal mental status. She does not appear obviously acutely ill. HENMT Other: Face is symmetrical. Mucous membranes moist. The patient is wearing nasal oxygen. Eyes General: appearance normal, both eyes and all related structures Neck Neck: Yes full ROM and Yes no JVD Resp Effort & Inspection: normal respiratory effort Auscultation: clear to auscultation bilaterally Cardio Rate: regular rate Rhythm: regular rhythm Heart sounds: S1 normal heart sound present, S2 normal heart sound present and Murmur heart sound present (There is a 3/6 systolic murmur) GI Other: Abdomen is soft and nontender Skin Other: Skin is dry and unremarkable Neuro Other: The patient is awake and alert with a normal mental status. Cranial nerves are grossly intact. She moves her extremities symmetrically in bed. She seems to have full-strength of her legs in bed. Extrem Other: No peripheral edema Medications Administered Discontinued Medications Generic Name Dose Route Start Last Admin Trade Name Freq PRN Reason Stop Dose Admin Methadone HCl 115 mg 06/11/24 16:15 06/11/24 16:31 Methadone Hcl 20 Mg/2 Ml Oral.Conc PO 06/11/24 16:16 115 mg ONCE ONE Administration Medical Decision Making Medical Decision Making [facility] Narrative: The patient is a 58-year-old woman who was discharged from the hospital 2 days ago after an almost 10 day hospitalization for urosepsis. The patient is on methadone. She was discharged on June 09. She was discharged to finish 4 additional days of levofloxacin. It has been advised when she was in the hospital that she should go to short-term rehab. Unfortunately the patient's methadone use was thought to potentially complicate placement for rehab. The patient did not want to travel far. Ultimately she decided that she would rather go home than go to rehab. However she finds that she can not function at home. Her legs feel too weak to let her do much at home and this results in her being incontinent of urine. She is able to move her legs easily and she can control her urine but she cannot get to the bathroom in time to avoid wetting the bed and she just feels that she isn't strong enough to walk around. On my exam I feel the patient is exhibiting deconditioning but not any acute neurological condition. The patient has medical workup today is unremarkable. The patient was also frustrated that she had not been able to get to the methadone clinic since leaving the hospital and she says she has a not had methadone for 2 days. She was given her usual methadone dose. Overall my impression is that the patient does not have an acute medical condition requiring hospitalization again. We will keep the patient in the emergency room to be seen by case management and physical therapy. The patient will be placed in physician observation. Lab Data 06/11/24 16:24 06/11/24 16:24 Labs: Lab Results 06/11/24 06/11/24 Range/Units 16:24 23:03 WBC 9.5 (4.8-10.8) X10*3/uL RBC 3.33 L D (4.20-5.50) X10*6/uL Hgb 9.9 L D (12.0-16.0) g/dl Hct 32.2 L D (37.0-47.0) % MCV 96.7 (80.0-98.0) fL MCH 29.7 (27.0-33.0) pg MCHC 30.7 L (31.0-35.0) g/dl RDW 14.3 (11.0-16.0) % Plt Count 324 D (160-400) X10*3/uL MPV 10.0 (9.4-12.3) fL Immature Gran % (Auto) 0.7 H (0.0-0.4) % Neut % (Auto) 78.7 H (45-73) % Lymph % (Auto) 15.2 L (20-40) % [place] % (Auto) 4.4 (2-11) % Eos % (Auto) 0.5 (0-4) % Baso % (Auto) 0.5 (0-2) % Lymph # (Auto) 1.4 (1.2-4.9) X10*3/uL [place] # (Auto) 0.4 (0.1-1.2) X10*3/uL Eos # (Auto) 0.1 (0.0-0.4) X10*3/uL Baso # (Auto) 0.1 (0.0-0.2) X10*3/uL Abs Immat Gran (auto) 0.07 H (0.00-0.03) X10*3/uL Absolute Neuts (auto) 7.4 (2.0-8.3) x10*3/uL Absolute Nucleated RBC 0.000 (0.0-0.012) X10*3/uL Nucleated RBC % (auto) 0.0 (0.0-0.2) /100WBC Sodium 138 (135-145) mmol/L Potassium 4.3 (3.3-5.1) mmol/L Chloride 100 (96-108) mmol/L Carbon Dioxide 30 H (22-29) mmol/L Anion Gap 12 (12-20) BUN 11 (9-16) mg/dL Creatinine 0.90 (0.5-1.4) mg/dL Estim Creat Clear Calc 66.0 Estimated GFR > 60 POC Glucose 246 H (60-115) mg/dL Random Glucose 156 H (60-115) mg/dL Calcium 10.1 (8.4-10.2) mg/dL Magnesium 1.6 (1.6-2.6) mg/dL Total Bilirubin 0.2 (0.0-1.0) mg/dL Direct Bilirubin < 0.2 (0.0-0.5) mg/dL AST 25 (5-31) U/L ALT 10 (0-31) U/L Alkaline Phosphatase 86 (39-117) U/L Total Creatine Kinase 15 L (26-140) U/L C-Reactive Protein 2.08 H (< or = 0.50) mg/dL B-Natriuretic Peptide 216 H (<100) pg/mL Total Protein 7.6 (6.5-8.0) g/dL Albumin 3.6 (3.5-5.0) g/dL TSH 1.76 (0.32-4.0) uIU/mL Ethyl Alcohol < 10 mg/dL Influenza Type A (PCR) NEGATIVE (Negative) Influenza Type B (PCR) NEGATIVE (Negative) RSV RNA Qual (PCR) NEGATIVE (Negative) SARS-CoV-2 RNA (RT-PCR) NEGATIVE (Negative) Independent Interpretation I performed an independent interpretation of an: EKG Interpretation: EKG at 16:17 shows sinus tachycardia at 102 beats per minute. There was an incomplete right bundle branch block. QTC 490 Discharge Plan Discharge Clinical Impression: Physical deconditioning, Difficulty walking, Weakness Patient Disposition: Still a Patient Prescriptions: No Action (DME) cane Device See Rx Instructions .Route Qty: 1 0RF Rx Instructions: As directed (DME) GRAB BAR See Rx Instructions .Route .MEDSUPPLY Qty: 1 0RF Rx Instructions: As directed sertraline 50 mg tablet 50 mg PO DAILY Qty: 30 2RF albuterol sulfate [Ventolin HFA] 90 mcg/actuation HFA aerosol inhaler 2 puff inhalation Q6H PRN (Reason: for wheezing) Qty: 8.5 0RF aspirin 81 mg tablet,delayed release (DR/EC) 81 mg PO DAILY Qty: 90 3RF (DME) FreeStyle Lite Strips Strip Qty: 100 12RF Rx Instructions: Test four times a day or as directed. clotrimazole 1 % cream 1 appl topical BID Qty: 30 0RF (DME) FreeStyle Nathan 2 Kiana Misc See Rx Instructions .ROUTE .MEDSUPPLY Qty: 1 0RF Rx Instructions: As directed check the BS TID (DME) FreeStyle Nathan 2 Sensor Kit See Rx Instructions .ROUTE .MEDSUPPLY Qty: 6 6RF Rx Instructions: As directed check the BS TID folic acid 1 mg tablet 1 mg PO DAILY Qty: 90 0RF (DME) insulin syringe-needle U-100 [BD Insulin Syringe Ultra-Fine] 1 mL 31 gauge x 5/16 syringe See Rx Instructions .Route Qty: 100 8RF Rx Instructions: As directed 4 times per day (DME) lancets [FreeStyle Lancets] 28 gauge misc Qty: 100 8RF Rx Instructions: Test four times a day or as directed. magnesium oxide 400 mg (241.3 mg magnesium) tablet 400 mg PO DAILY@0730 Qty: 90 0RF metformin 500 mg tablet 500 mg PO BID Qty: 180 8RF nystatin 100,000 unit/gram powder 1 appl topical BID Qty: 30 0RF (DME) Oxygen Home Use Kit See Rx Instructions .ROUTE .MEDSUPPLY Qty: 1 12RF Rx Instructions: 2L nasal cannula continuous (DME) pen needle, diabetic [BD Ultra-Fine Micro Pen Needle] 32 gauge x 1/4 needle See Rx Instructions .Route Qty: 100 8RF Rx Instructions: test 4 times per day polyethylene glycol 3350 17 gram powder in packet 17 g PO DAILY PRN (Reason: Constipation) Qty: 100 0RF thiamine mononitrate (vit B1) 100 mg tablet 100 mg PO DAILY Qty: 90 0RF (DME) blood-glucose meter [FreeStyle Lite Meter] Kit Qty: 1 0RF Rx Instructions: As Directed (DME) compress.stocking,knee,reg,med Misc See Rx Instructions .Route Qty: 12 0RF Rx Instructions: As directed 20-30 mm HG (DME) Wings Choice Plus Adult Briefs Misc See Rx Instructions .Route Qty: 60 0RF Rx Instructions: As directed docusate sodium [Colace] 100 mg capsule 100 mg PO BID PRN (Reason: Constipation) Qty: 90 0RF mirtazapine 30 mg tablet 30 mg PO BEDTIME 30 Days Qty: 30 1RF omeprazole 40 mg capsule,delayed release(DR/EC) 40 mg PO DAILY@0630 Qty: 90 2RF ondansetron 4 mg tablet,disintegrating 4 mg PO Q8H PRN (Reason: nausea and vomiting) Qty: 20 0RF trazodone 50 mg tablet 50 mg PO BEDTIME PRN (Reason: sleep) Qty: 90 0RF Anoro Ellipta 62.5-25 mcg/actuation blister with device 1 ea inhalation DAILY Qty: 60 12RF insulin glargine [Lantus Solostar U-100 Insulin] 100 unit/mL (3 mL) insulin pen 15 unit SUBCUT BEDTIME 30 Days Qty: 4.5 0RF dapagliflozin propanediol [Farxiga] 10 mg tablet 10 mg PO DAILY Qty: 30 0RF (DME) Adult pull ups large See Rx Instructions .Route .MEDSUPPLY Qty: 300 3RF Rx Instructions: As directed ipratropium-albuterol 0.5 mg-3 mg(2.5 mg base)/3 mL solution for nebulization 3 ml inhalation Q4-6H PRN (Reason: shortness of breath or wheezing) Qty: 180 0RF methadone [Methadone Intensol] 10 mg/mL Concentrate 115 mg PO DAILY (DME) pulse oximeter See Rx Instructions Rx Instructions: As directed valsartan 40 mg tablet 20 mg DAILY metoprolol succinate 25 mg Tablet Extended Release 24 Hr 25 mg PO DAILY quetiapine 25 mg tablet 12.5 mg PO Q4H PRN (Reason: anxiety) gabapentin 300 mg capsule 300 mg PO TID insulin lispro [Humalog KwikPen Insulin] 100 unit/mL insulin pen 5 unit subcut TID levofloxacin 500 mg Tablet 500 mg PO Q24H Qty: 4 0RF furosemide [Lasix] 20 mg tablet 20 mg PO DAILY Qty: 90 0RF Print Language: Icelandic
[2024-06-11 16:00] VITALS: BP 112/72; PULSE 84; O2SAT 94; BMI 36.6
--- NOTE | 2024-06-11 16:05 | ECG_ITS ---
Test Reason : weakness Blood Pressure : */* mmHG Vent. Rate : 102 BPM Atrial Rate : 102 BPM P-R Int : 148 ms QRS Dur : 92 ms QT Int : 376 ms P-R-T Axes : 34 90 71 degrees QTcB Int : 490 ms Sinus tachycardia Possible Left atrial enlargement Rightward axis Incomplete right bundle branch block Borderline ECG When compared with ECG of 31-May-2024 04:13, T wave inversion no longer evident in Lateral leads QT has lengthened Referred By: Enrike Oneill Electronically Signed By: CAREY MCCLURE
[2024-06-11 16:29] LABS: MANUAL DIFF FLAG NO
[2024-06-11] MEDS: methADONE HCl 20 MG/2 ML ORAL.CONC 115 MG PO (16:31)
[2024-06-11 16:34] LABS: Basophils Absolute Auto 0.1 X10*3/uL (0.0-0.2); Basophils Percent Auto 0.5 % (0-2); Eosinophils Absolute Auto 0.1 X10*3/uL (0.0-0.4); Eosinophils Percent Auto 0.5 % (0-4); Hematocrit 32.2 % (37.0-47.0); Hemoglobin 9.9 g/dl (12.0-16.0); Imm Gran Abs Auto 0.07 X10*3/uL (0.00-0.03); Imm Gran Pct Auto 0.7 % (0.0-0.4); Lymphocytes Absolute Auto 1.4 X10*3/uL (1.2-4.9); Lymphocytes Percent Auto 15.2 % (20-40); Mean Corpuscular HGB Conc 30.7 g/dl (31.0-35.0); Mean Corpuscular Hemoglobin 29.7 pg (27.0-33.0); Mean Corpuscular Volume 96.7 fL (80.0-98.0); Monocytes Absolute Auto 0.4 X10*3/uL (0.1-1.2); Monocytes Percent Auto 4.4 % (2-11); Neutrophils Absolute Auto 7.4 x10*3/uL (2.0-8.3); Neutrophils Percent Auto 78.7 % (45-73); Platelet Count 324 X10*3/uL (160-400); Red Blood Count 3.33 X10*6/uL (4.20-5.50); Red Cell Distribution Width 14.3 % (11.0-16.0); White Blood Count 9.5 X10*3/uL (4.8-10.8)
[2024-06-11 16:47] LABS: Alanine Aminotransferase 10 U/L (0-31); Albumin Level 3.6 g/dL (3.5-5.0); Alkaline Phosphatase 86 U/L (39-117); Anion Gap 12 (12-20); Aspartate Amino Transferase 25 U/L (5-31); Bilirubin Direct < 0.2 mg/dL (0.0-0.5); Bilirubin Total 0.2 mg/dL (0.0-1.0); Blood Urea Nitrogen 11 mg/dL (9-16); C Reactive Protein 2.08 mg/dL (< or = 0.50); Calcium 10.1 mg/dL (8.4-10.2); Carbon Dioxide 30 mmol/L (22-29); Chloride 100 mmol/L (96-108); Estimated Glomerular Filt Rate > 60; Ethanol < 10 mg/dL; Glucose Random 156 mg/dL (60-115); Magnesium 1.6 mg/dL (1.6-2.6); Potassium 4.3 mmol/L (3.3-5.1); Sodium 138 mmol/L (135-145); Total Protein 7.6 g/dL (6.5-8.0)
[2024-06-11 16:48] LABS: B Type Natriuretic Peptide 216 pg/mL (<100)
--- NOTE | 2024-06-11 16:51 | PC.NURSE ---
on 2L oxygen at baseline. stage one pressure injury to buttocks - area red and inflamed, no open area. pt clean and dry and barrier cream applies. methadone dose verified and administered. labs and ekg done
[2024-06-11 17:03] LABS: Thyroid Stimulating Hormone 1.76 uIU/mL (0.32-4.0)
[2024-06-11 17:10] LABS: Influenza A PCR NEGATIVE (Negative); Influenza B PCR NEGATIVE (Negative); Resp Syncy Virus RNA Qual PCR NEGATIVE (Negative); SARS COV2 PCR INHOUSE NEGATIVE (Negative)
--- OUTSIDE RECORDS SUMMARY | 2024-06-11 19:57 | XMS_ITS ---
Author Organization [facility] Address [address] [place] [id number] Care Team Providers Care Polymerization Helper Name Role Phone Jair Lemus MD Primary Care Provider Unavaila Maxx Dunlap Unavailable [phone] Encounters Encounter Location Date Provider Diagnosis [facility] [address] [place] [id number] 03/15/2023 Maxx Lan PLAN OF TREATMENT No Information
--- OUTSIDE RECORDS SUMMARY | 2024-06-11 19:57 | XMS_ITS ---
Author Organization [facility] Address [address] [place] [id number] Care Team Providers Care Speck Dyer Name Role Phone Jair Lemus MD Primary Care Provider Unavaila Maxx Dunlap Unavailable [phone] REASON FOR VISIT Patient presents today for a screening colon Encounters Encounter Location Date Provider Diagnosis [facility] [address] [place] [id number] 03/15/2023 Maxx Lan PLAN OF TREATMENT No Information
--- OUTSIDE RECORDS SUMMARY | 2024-06-11 19:57 | XMS_ITS | Clinical Summary ---
Author Organization [address] [facility] Address [address] [place] [address] Phone Care Team Providers Care Butcher Scullion Name Role Phone Amaya Martinez MD Primary Care Provider [phone] Allergies Active Allergy Reactions Criticality Noted Date Comments Hydrocodone-Acetaminophen 07/13/2011 Other Reaction(s): Hives/Urticaria Sumatriptan Succinate 06/09/2009 Worse headache Medications Medication Sig Dispensed Refills Start Date End Date Status fluticasone-salmetero l (Advair Diskus) 250-50 mcg/dose diskus inhaler Inhale 1 Puff into the lungs 2 times daily. 02/22/2020 Active albuterol HFA (PROAIR HFA ; PROVENTIL HFA ; VENTOLIN HFA) 90 mcg/actuation inhaler Inhale 2 Puffs into the lungs every 4 hours as needed for Wheezing or Shortness of Breath. 02/04/2020 Active cetirizine (ZyrTEC) 10 mg tablet Take 1 tablet (10 mg total) by mouth 1 (one) time each day. 10/12/2018 Active gabapentin (NEURONTIN) 800 mg tablet Take 1 Tab by mouth 3 times daily. 02/04/2020 Active ipratropium-albuteroL (DUONEB) 0.5-2.5 mg/3 mL nebulizer solution Inhale 3 mL into the lungs 4 times daily as needed (wheezing). 03/14/2018 Active losartan (COZAAR) 50 mg tablet Take 0.5 tablets (25 mg total) by mouth 1 (one) time each day. 08/27/2020 Active methadone (DOLOPHINE) 10 mg tablet 120 mg daily 08/25/2018 Active omeprazole (PriLOSEC) [address] capsule TAKE 1 CAP BY MOUTH DAILY. 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 Benzos (pt brought a bottle of clonazepam although UTox was negative in hospital). As of 01/18/19 - methadone; not using any other drugs except tobacco Kidney stone 04/06/2011 Migraine 02/05/2009 Obesity, unspecified 12/18/2007 Venous insufficiency 12/18/2007 Overview (04/07/2024): Neg. U/S 2007 COPD (chronic obstructive pulmonary disease) Overview (04/07/2024): Dr. Obrien Hospitalized at [facility] 11/04-11/21/07 for COPD exacerbation Abnormal CXR 07/01/2006 Overview (04/07/2024): 2004--CT IMO update Diabetes mellitus, type 2 06/26/2006 Overview (04/07/2024): Last Assessment & Plan: Checking Your Blood Sugars Please check your blood sugars every day. Please check your sugars at the following times of day: before breakfast and before dinner Your Blood Sugar Goals Pre Meal: 90-130 2 hours after meals: 110-160 Bedtime: 110-150 Use the Results ?? Bring your glucometer to every appointment ?? Write your fingerstick blood sugars down on a log sheet or record book. Bring them to your appointment ?? Look for patterns in the numbers. The results help you and your provider make decisions about your diabetes treatment plan. Your Results and your Goals Your Result / Date of Completion Your Goal / How Often to Assess Component Value Date HGBA1C 7.6 03/27/2009 Less than 7%--- 2-4 times per year BP Readings from Last 1 Encounters: 07/22/11 120/70 Less than 130/80--- once per year Component Value Date LDL 102 03/27/2009 LDL less than 100--- once per year Component Value Date MALBUR 33.2 07/23/2008 Less than 30--- once per year Wt Readings from Last 1 Encounters: 07/22/11 168 lb 12.8 oz (76.567 kg) Your goal weight by next visit: 165 --- reassess 2-4 times a year Health Maintenance Due Topic Date Due ? Spirometry (Breathing Capacity Test) For Copd 08/25/1983 ? Diabetes: Annual Foot Exam 08/25/1983 ? Diabetes: Annual Care Plan 08/25/1983 ? Pelvic Exam Annually 1985 ? Baseline Health Exam 40-64 2005 ? Mammogram Age 40 To 49 2005 ? Diabetes: Annual Eye Exam 2006 ? Diabetes: Annual Urine Protein Test (Microalbumin) 07/23/2009 ? Diabetes: Blood Sugar Control Test (Hgba1c) 07/25/2009 ? Diabetes/heart Disease: Annual Cholesterol (Ldl) 03/27/2010 Your Action Plan Start/adjust diabetic medications as directed. Check blood glucose as directed and write down all results. Make appointment to see your eye doctor Check feet for sores every day Continue to work on weight loss with a goal of losing 2-4 pounds per month Avoid walking in bare or stocking feet due to the numbness in your feet Increase physical activity Contact me if you experience any barriers to care such as inability to purchase your medication, difficulty getting to your appointments or difficulty understanding your care plan Please get your yearly flu shot When to Call your Healthcare Provider If your blood sugar falls below 70 and you do not know why or you become unconscious If you are sick and unable to take liquids because or nausea or vomiting If you have a fever over 101 If your blood sugar is 300 or higher on greater than 3 separate occasions during the same week If you are just unsure what to do Educational Resources [place] [employer] (www.diabetes.org) Centers for Disease Control and Prevention (www.cdc.gov/diabetes) This care plan was created in collaboration with Keturah Sanon on 07/22/2011 Esophageal reflux 06/26/2006 Tobacco use disorder 06/26/2006 Back pain 2005 Overview (04/07/2024): IMO update Peripheral neuropathy 2005 Overview (04/07/2024): Neurology Rossen 08/18--rec EMG, sleep study--- not seen Neurontin not benefit--FELTON Dillon Alcohol abuse 05/03/2005 Overview (04/07/2024): until 07/17 Anxiety state 05/03/2005 Depression 05/03/2005 Overview (04/07/2024): psychiatry Fibromyalgia 05/03/2005 Overview (04/07/2024): IMO update Immunizations Name Administration Dates Next Due Influenza Quadravalent, MDCK , 0.5ml, with preservative (Flucelvax) 6mo and older 01/27/2017 Influenza trivalent, 0.5mL, preservative free (Fluarix; FluLaval; Fluzone) ages 6mo and older (Afluria) 3 years and older 02/13/2010,02/12/2009,02/19/2008,03/30 Pneumococcal polysaccharide 23 valent (Pneumovax 23) 2yo and older 10/12/2018 Tdap Tetanus diptheria acell ular pertussis (Boostrix; Adacel) 7yo and older 10/12/2018,09/06/2008 Surgical History Surgery Date Site/Laterality Comments ANKLE SURGERY 09/2017 Right PROCEDURE: HISTORICAL ANKLE SURGERY WRIST SURGERY 05/2013 Left PROCEDURE: HISTORICAL WRIST SURGERY Medical History Medical History Date Comments Alcohol abuse, unspecified 05/03/2005 DX:Al cohol abuse, unspecified Unspecified asthma(493.90) 05/03/2005 DX:Un specified asthma(493.90) Anxiety state, unspecified 05/03/2005 DX:An xiety state, unspecified Depressive disorder, not els ewhere classified 05/03/2005 DX:Depressive disorder, not elsewhere classified Myalgia and myositis, unspecified 05/03/2005 DX:Myalgia and myositis, unspecified Venous insufficiency 12/18/2007 DX:Venous i nsufficiency; COMMENT: Neg. U/S 2007 Obesity, unspecified 12/18/2007 DX:Obesity, unspecified Kidney stone 04/06/2011 DX:Kidney stone Essential hypertension 03/14/2018 DX:Essent ial hypertension Family History Medical History Relation Name Comments Other: Other Brother intestinal surg luciano Diabetes Mother Breast cancer Neg Hx Ovarian cancer Neg Hx Relation Name Status Comments Brother Mother Social History Tobacco Use Types Packs/Day Years Used Date Smoking Tobacco: Every Day Cigarettes Smokeless Tobacco: Never Alcohol Use Standard Drinks/Week Comments No 0 (1 standard drink = 0.6 oz pur e alcohol) Sex and Gender Information Value Date Recorded Sex Assigned at Not on file Gender Identity Not on file Sexual Orientation Not on file Obstetrics History Plan of Treatment Health Maintenance Due Date Last Done Comments Breast Cancer Screening 1965 Diabetes: Annual GFR (Glomerular Filtration Rate) 1965 Diabetes: Annual Foot Exam 08/25/1975 Diabetes: Annual Retina Eye Exam 08/25/1975 Hepatitis A Vaccines (1 of 2 - Risk 2-dose series) 1984 Hepatitis B Vaccines (1 of 3 - 19+ 3-dose series) 1984 Cervical Cancer Screening: Pap Smear 1986 Zoster Vaccines (1 of 2) 08/25/2015 Pneumococcal Vaccine: Pediatrics (0 to 5 Years) and At-Risk Patients (6 to 64 Years) (2 of 2 - PCV) 10/13/2019 10/12/2018 COVID-19 Vaccine ( - season) 2024 Influenza Vaccine (#1) 2024 7, 02/13/2010, 02/12/2009, Additional history exists Cholesterol Screening (Lipid Panel) 03/10/2024 10/12/2018 Colorectal Cancer Screening: Stool Based Tests (FOBT/FIT) 03/10/2024 Depression Screening 03/10/2024 Diabetes: Annual Urine Albumin-Creatinine Ratio (uACR) 03/10/2024 10/12/2018 Diabetes: Blood Sugar Control Test (HGBA1C) 03/10/2024 01/18/2019 HIV Screening 03/10/2024 Hypertension/CHF/CAD Annual BMP Blood Test 03/10/2024 Social Influencers of Health Screening 03/10/2024 DTaP,Tdap,and Td Vaccines (3 - Td or Tdap) 10/12/2028 10/12/2018, 09/06/2008 Hepatitis C Screening Completed 03/09/2011 HIB Vaccines Aged Out No longer eligi ble based on patient's age to complete this topic HPV Vaccines Aged Out No longer eligi ble based on patient's age to complete this topic IPV Vaccines Aged Out No longer eligi ble based on patient's age to complete this topic MMR Vaccines Aged Out No longer eligi ble based on patient's age to complete this topic Meningococcal ACWY Vaccine Aged Out N o longer eligible based on patient's age to complete this topic RSV Immunization Patients Under 20 months Aged Out No longer eligible based on patient's age to complete this topic Varicella Vaccines Aged Out No longer eligible based on patient's age to complete this topic Procedures Procedure Name Priority Date/Time Associated Diagnosis Comments HEMOGLOBIN A1C Routine 01/18/2019 URINE ALBUMIN CREATININE RATIO Routine 10/12/2018 LIPID PANEL Routine 10/12/2018 HEPATITIS C SCREENING Routine 03/09/2011 from Last 3 Months or Most Recently Relevant to Health Maintenance Results * Hemoglobin A1c (01/18/2019) Hemoglobin A1C 5.6 6.5 % Blood Venous blood specimen / Unknown Historical Provider LAB BLOOD ORDERAB LES * Urine Albumin Creatinine Ratio (10/12/2018) Urine Albumin Creatinine Ratio ABSTRACTED Historical Provider MD POST MAINTENROLAND E * Lipid panel (10/12/2018) LDL/HDL Ratio 3 0 - 4 Triglycerides 149 0 - 150 mg/dL Cholesterol 154 0 - 200 mg/dL HDL 45 40 mg/dL LDL Cholesterol 80 0 - 100 mg/dL Blood Venous blood specimen / Unknown Historical Provider LAB BLOOD ORDERAB LES * Hepatitis C Screening (03/09/2011) Pathologist [facility] Hepatitis C Screening ABSTRACTED Historical Provider MD POST MAINPEG E from Last 3 Months or Most Recently Relevant to Health Maintenance Care Teams Butcher Scullion Relationship Specialty Start Date End Date Amaya Martinez MD [address] [place] [address] [address] [facility] [place] [address] PCP - General 02/15/24
--- OUTSIDE RECORDS SUMMARY | 2024-06-11 19:57 | XMS_ITS | Clinical Summary ---
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 Name Role Phone DONNA HERRERA, WALE Unavailable Unavailable AMINAH VALLEJO, VIVIANE Unavailable Unavailable Payers Payer Name Policy Type Policy Number Effective Date Expira tion Date [facility] [place] [place] [facility] [id number] MEDICAID [facility] [id number] Problems Condition Name Condition Details Condition Category Status Onset Date Resolution Date Last Treatment Date Treating Clinician Comments UNSPECIFIED DIASTOLIC (CONGESTIVE) HEART FAILURE Active 2023-05 00:00: 00 TYPE 2 DIABETES MELLITUS WITHOUT COMPLICATION S Active 2023-05 00:00: 00 CHRONIC OBSTRUCTIVE PULMONARY DISEASE, UNSPECIFIED Active 2023-05 00:00: 00 Allergies, Adverse Reactions, Alerts Allergy Name Allergy Type Status Severity Reaction(s) Onset Date Inactive Date Treating Clinician Comments NKA Propensity to adverse reactions Active 2024-03 21:42:1 1 Medications Ordered Medication Name Filled Medication Name Start Date Stop Date Current Medication? Ordering Clinician Indication Dosage Frequency Signature (SIG) Comments Components omeprazole 40 mg capsule,del ayed release 07-24 00:00: 00 03-26 23:59 :00 No [id number] 40 mg EVERY AM 40 mg EVERY AM (route: oral) Med Classific ation: Gastroint estinal Therapy Agents Advair Diskus 250 mcg-50 mcg/dose powder for inhalation 07-24 00:00: 00 07-24 23:59 :00 No [id number] 1 inhalat ion INTO LUNGS TWICE A DAY 1 inhalation INTO LUNGS TWICE A DAY (route: inhalation ) Med Classific ation: Respirato ry Therapy Agents lisinopril 5 mg tablet 07-24 00:00: 00 03-26 23:59 :00 No [id number] 5 mg EVERY DAY 5 mg EVERY DAY (route: oral) Med Classific ation: Cardiovas cular Therapy Agents Ventolin HFA 90 mcg/actuati on aerosol inhaler 07-24 00:00: 00 03-26 23:59 :00 No [id number] 2 puff INTO LUNGS EVERY 6 HOURS NEEDED FOR 90 DAYS 2 puff INTO LUNGS EVERY 6 HOURS NEEDED FOR 90 DAYS (route: inhalation ) Med Classific ation: Respirato ry Therapy Agents mirtazapine 30 mg tablet 07-24 00:00: 00 03-26 23:59 :00 No [id number] 30 mg DAILY AT BEDTIME 30 mg DAILY AT BEDTIME (route: oral) Med Classific ation: Central Nervous System Agents gabapentin 300 mg capsule 07-24 00:00: 00 10-23 23:59 :00 No [id number] 3 capsule 3 TIMES DAILY 3 capsule 3 TIMES DAILY (route: oral) Med Classific ation: Central Nervous System Agents Colace 100 mg capsule 07-24 00:00: 00 07-24 23:59 :00 No [id number] 100 mg 2 TIMES DAILY 100 mg 2 TIMES DAILY (route: oral) Med Classific ation: Gastroint estinal Therapy Agents folic acid 1 mg tablet 07-24 00:00: 00 03-26 23:59 :00 No [id number] 1 mg DAILY 1 mg DAILY (route: oral) Med Classific ation: Electroly te Balance-N utritiona l Products furosemide 20 mg tablet 07-24 00:00: 00 03-26 23:59 :00 No [id number] 20 mg DAILY 20 mg DAILY (route: oral) Med Classific ation: Cardiovas cular Therapy Agents Humalog Nain KwikPen (U-100) 100 unit/mL subcutaneou s half-unit pen 07-24 00:00: 00 07-24 23:59 :00 No [id number] 10 unit 3 TIMES DAILY 10 unit 3 TIMES DAILY (route: subcutaneo us) Med Classific ation: Endocrine Lantus Solostar U-100 Insulin 100 unit/mL (3 mL) subcutaneou s pen 2022-05 00:00: 00 09-11 23:59 :00 No [id number] 35 unit BEDTIME 35 unit BEDTIME (route: subcutaneo us) Med Classific ation: Endocrine Minipress 1 mg capsule 07-24 00:00: 00 10-23 23:59 :00 No [id number] 1 mg BEDTIME 1 mg BEDTIME (route: oral) Med Classific ation: Cardiovas cular Therapy Agents thiamine HCl (vitamin B1) 100 mg tablet 07-24 00:00: 00 09-11 23:59 :00 No [id number] 100 mg DAILY 100 mg DAILY (route: oral) Med Classific ation: Electroly te Balance-N utritiona l Products aspirin 81 mg tablet,luh yed release 07-24 00:00: 00 03-26 23:59 :00 No [id number] 81 mg DAILY 81 mg DAILY (route: oral) Med Classific ation: Hematolog ical Agents metformin 500 mg tablet 07-24 00:00: 00 03-26 23:59 :00 No [id number] 500 mg 2 TIMES DAILY 500 mg 2 TIMES DAILY (route: oral) Med Classific ation: Endocrine prazosin 1 mg capsule 07-24 00:00: 00 03-26 23:59 :00 No [id number] 3 capsule BEDTIME 3 capsule BEDTIME (route: oral) Med Classific ation: Cardiovas cular Therapy Agents Seroquel 25 mg tablet 07-24 00:00: 00 03-26 23:59 :00 No [id number] 0.5 tablet EVERY 4 HOURS 0.5 tablet EVERY 4 HOURS (route: oral) Med Classific ation: Central Nervous System Agents albuterol sulfate HFA 90 mcg/actuati on aerosol inhaler 07-24 00:00: 00 03-26 23:59 :00 No [id number] 1 puff 4 TIMES DAILY 1 puff 4 TIMES DAILY (route: inhalation ) Med Classific ation: Respirato ry Therapy Agents hydroxyzine HCl 25 mg tablet 07-24 00:00: 00 03-26 23:59 :00 No [id number] 50 mg 3 TIMES DAILY 50 mg 3 TIMES DAILY (route: oral) Med Classific ation: Central Nervous System Agents insulin lispro (U-100) 100 unit/mL subcutaneou s pen 07-24 00:00: 00 03-26 23:59 :00 No [id number] 10 unit 3 TIMES DAILY 10 unit 3 TIMES DAILY (route: subcutaneo us) Med Classific ation: Endocrine magnesium 400 mg (as magnesium oxide) tablet 07-24 00:00: 00 03-26 23:59 :00 No [id number] 1 tablet DAILY 1 tablet DAILY (route: oral) Med Classific ation: Electroly te Balance-N utritiona l Products Nicorette 2 mg gum 07-24 00:00: 00 03-26 23:59 :00 No [id number] 1 gum EVERY 2 HOURS 1 gum EVERY 2 HOURS (route: buccal) Med Classific ation: Chemical Dependenc y, Agents to Treat nystatin 100,000 unit/gram topical powder 07-24 00:00: 00 03-26 23:59 :00 No [id number] Per instruc tions DAILY Per instructio ns DAILY (route: topical) Med Classific ation: Dermatolo gical ipratropium 0.5 mg-albutero l 3 mg (2.5 mg base)/3 mL nebulizatio n soln 07-24 00:00: 00 03-26 23:59 :00 No [id number] 3 mL 2 TIMES DAILY 3 mL 2 TIMES DAILY (route: inhalation ) Med Classific ation: Respirato ry Therapy Agents sertraline 25 mg tablet 08-09 00:00: 00 08-19 23:59 :00 No [id number] 1 tablet DAILY 1 tablet DAILY (route: oral) Med Classific ation: Central Nervous System Agents sertraline 50 mg tablet 07 00:00: 00 03-26 23:59 :00 No [id number] 1 tablet DAILY 1 tablet DAILY (route: oral) Med Classific ation: Central Nervous System Agents thiamine HCl (vitamin B1) 100 mg tablet 08-09 00:00: 00 08-24 23:59 :00 No [id number] 1 tablet 2 TIMES DAILY 1 tablet 2 TIMES DAILY (route: oral) Med Classific ation: Electroly te Balance-N utritiona l Products Lantus Solostar U-100 Insulin 100 unit/mL (3 mL) subcutaneou s pen 5-27 00:00: 00 10-23 23:59 :00 No [id number] 20 unit BEDTIME 20 unit BEDTIME (route: subcutaneo us) Med Classific ation: Endocrine thiamine HCl (vitamin B1) 100 mg tablet 429 00:00: 00 03-26 23:59 :00 No [id number] 1 tablet 2 TIMES DAILY 1 tablet 2 TIMES DAILY (route: oral) Med Classific ation: Electroly te Balance-N utritiona l Products pyridoxine (vitamin B6) 50 mg tablet 09-11 00:00: 00 03-26 23:59 :00 No [id number] 1 tablet DAILY 1 tablet DAILY (route: oral) Med Classific ation: Electroly te Balance-N utritiona l Products O2 - OXYGEN 5-31 00:00: 00 03-26 23:59 :00 No [id number] 2 Liter O2 - CONTINUOUS 2 Liter O2 - CONTINUOUS (route: Oxygen) Alternate Route: O2 - NASAL CANNULA. Med Classific ation: Medical Oxygen Advair Diskus 250 mcg-50 mcg/dose powder for inhalation 10-23 00:00: 00 03-26 23:59 :00 No [id number] 1 inhalat ion 2 TIMES DAILY 1 inhalation 2 TIMES DAILY (route: inhalation ) Med Classific ation: Respirato ry Therapy Agents albuterol sulfate HFA 90 mcg/actuati on aerosol inhaler 10-23 00:00: 00 03-26 23:59 :00 No [id number] 1 puff 4 TIMES DAILY 1 puff 4 TIMES DAILY (route: inhalation ) Med Classific ation: Respirato ry Therapy Agents gabapentin 300 mg capsule 10-23 00:00: 00 03-26 23:59 :00 No [id number] 1 capsule 3 TIMES DAILY 1 capsule 3 TIMES DAILY (route: oral) Med Classific ation: Central Nervous System Agents Lantus Solostar U-100 Insulin 100 unit/mL (3 mL) subcutaneou s pen 10-23 00:00: 00 03-26 23:59 :00 No [id number] 28 unit BEDTIME 28 unit BEDTIME (route: subcutaneo us) Med Classific ation: Endocrine trazodone 50 mg tablet 10-23 00:00: 00 03-26 23:59 :00 No [id number] 1 tablet BEDTIME 1 tablet BEDTIME (route: oral) Med Classific ation: Central Nervous System Agents amoxicillin 500 mg capsule 01-03 00:00: 00 01-09 23:59 :00 No [id number] 1 capsule 3 TIMES DAILY 1 capsule 3 TIMES DAILY (route: oral) Med Classific ation: Anti-Infe ctive Agents albuterol sulfate HFA 90 mcg/actuati on aerosol inhaler 2023-05 00:00: 00 Yes [id number] 1 puff 4 TIMES DAILY 1 puff 4 TIMES DAILY (route: inhalation ) Med Classific ation: Respirato ry Therapy Agents amoxicillin 875 mg-potassiu m clavulanate 125 mg tablet 2023-05 00:00: 00 03-31 23:59 :00 No [id number] 1 tablet 2 TIMES DAILY 1 tablet 2 TIMES DAILY (route: oral) Med Classific ation: Anti-Infe ctive Agents Anoro Ellipta 62.5 mcg-25 mcg/actuati on powder for inhalation 2023-05 00:00: 00 Yes [id number] 1 inhalat ion DAILY 1 inhalation DAILY (route: inhalation ) Med Classific ation: Respirato ry Therapy Agents aspirin 81 mg tablet,luh yed release 2023-05 00:00: 00 Yes [id number] 1 tablet DAILY 1 tablet DAILY (route: oral) Med Classific ation: Hematolog ical Agents Farxiga 10 mg tablet 2023-05 00:00: 00 Yes [id number] 1 tablet DAILY 1 tablet DAILY (route: oral) Med Classific ation: Endocrine folic acid 1 mg tablet 2023-05 00:00: 00 Yes [id number] 1 tablet DAILY 1 tablet DAILY (route: oral) Med Classific ation: Electroly te Balance-N utritiona l Products furosemide 20 mg tablet 2023-05 00:00: 00 04-06 23:59 :00 No [id number] 1 tablet DAILY 1 tablet DAILY (route: oral) Med Classific ation: Cardiovas cular Therapy Agents gabapentin 300 mg capsule 2023-05 00:00: 00 05-25 23:59 :00 No [id number] 3 capsule 3 TIMES DAILY 3 capsule 3 TIMES DAILY (route: oral) Med Classific ation: Central Nervous System Agents insulin lispro (U-100) 100 unit/mL subcutaneou s pen 2023-05 00:00: 00 Yes [id number] 10 unit 3 TIMES DAILY 10 unit 3 TIMES DAILY (route: subcutaneo us) Med Classific ation: Endocrine ipratropium 0.5 mg-albutero l 3 mg (2.5 mg base)/3 mL nebulizatio n soln 2023-05 00:00: 00 Yes [id number] 3 mL 4 TIMES DAILY 3 mL 4 TIMES DAILY (route: inhalation ) Med Classific ation: Respirato ry Therapy Agents Lantus Solostar U-100 Insulin 100 unit/mL (3 mL) subcutaneou s pen 2023-05 00:00: 00 Yes [id number] 10 unit BEDTIME 10 unit BEDTIME (route: subcutaneo us) Med Classific ation: Endocrine metformin 500 mg tablet 2023-05 00:00: 00 Yes [id number] 1 tablet 2 TIMES DAILY 1 tablet 2 TIMES DAILY (route: oral) Med Classific ation: Endocrine omeprazole 40 mg capsule,del ayed release 2023-05 00:00: 00 Yes [id number] 1 capsule DAILY 1 capsule DAILY (route: oral) Med Classific ation: Gastroint estinal Therapy Agents OXYGEN 2023-05 00:00: 00 Yes [id number] 2 Liter O2 - CONTINUOUS 2 Liter O2 - CONTINUOUS (route: Oxygen) Med Classific ation: Medical Oxygen pyridoxine (vitamin B6) 50 mg tablet 2023-05 00:00: 00 Yes [id number] 1 tablet DAILY 1 tablet DAILY (route: oral) Med Classific ation: Electroly te Balance-N utritiona l Products sertraline 50 mg tablet 2023-05 00:00: 00 05-27 23:59 :00 No [id number] 1 tablet DAILY 1 tablet DAILY (route: oral) Med Classific ation: Central Nervous System Agents thiamine HCl (vitamin B1) 100 mg tablet 2023-05 00:00: 00 Yes [id number] 1 tablet 2 TIMES DAILY 1 tablet 2 TIMES DAILY (route: oral) Med Classific ation: Electroly te Balance-N utritiona l Products Lasix 40 mg tablet 2023-05 00:00: 00 06-09 23:59 :00 No [id number] 1 tablet DAILY 1 tablet DAILY (route: oral) Med Classific ation: Cardiovas cular Therapy Agents gabapentin 300 mg capsule 05-27 00:00: 00 Yes [id number] 1 capsule 3 TIMES DAILY 1 capsule 3 TIMES DAILY (route: oral) Med Classific ation: Central Nervous System Agents mirtazapine 15 mg tablet 05-27 00:00: 00 Yes [id number] 1 tablet BEDTIME 1 tablet BEDTIME (route: oral) Med Classific ation: Central Nervous System Agents prazosin 2 mg capsule 05-27 00:00: 00 06-09 23:59 :00 No [id number] 1 capsule BEDTIME 1 capsule BEDTIME (route: oral) Med Classific ation: Cardiovas cular Therapy Agents sertraline 100 mg tablet 05-27 00:00: 00 Yes [id number] 1 tablet DAILY 1 tablet DAILY (route: oral) Med Classific ation: Central Nervous System Agents Lasix 20 mg tablet 06-09 00:00: 00 Yes 20 mg DAILY 20 mg DAILY (route: oral) Med Classific ation: Cardiovas cular Therapy Agents levofloxaci n 500 mg tablet 06-09 00:00: 00 Yes 500 mg DAILY 500 mg DAILY (route: oral) Med Classific ation: Anti-Infe ctive Agents Vital Signs Vital Name Observation Time Observation Value Commen ts Temperature 2024-06-09 15:16:00.000 98 [degF] Temperature 2024-05-28 15:06:00.000 97.4 [degF] BMI (%) 2024-06-09 15:16:00.000 32 kg/m2 Height 2024-06-09 15:16:00.000 64 [in_us] Pulse 2024-06-09 15:16:00.000 76 /min Pulse 2024-05-28 15:06:00.000 76 /min O2 Saturation (%) 2024-06-09 15:18:00.000 96 % O2 Saturation (%) 2024-05-28 15:11:00.000 95 % Respirations 2024-06-09 15:16:00.000 14 /min Respirations 2024-05-28 15:06:00.000 16 /min Weight (lbs) 2024-06-09 15:16:00.000 192 [lb_av] Systolic Blood Pressure 2024-06-09 15:16:00.000 131 mm [Hg] Systolic Blood Pressure 2024-05-28 15:06:00.000 136 mm [Hg] Diastolic Blood Pressure 2024-06-09 15:16:00.000 87 mm [Hg] Diastolic Blood Pressure 2024-05-28 15:06:00.000 72 mm [Hg] Plan of Treatment Planned Activity Planned Date Details Comments Future Scheduled Test SKILLED NU RSE TO EVALUATE PATIENT, IDENTIFY PRIMARY AND CO-MORBID CONDITIONS CODED PER CODING GUIDELINES, AND DEVELOP PATIENT SPECIFIC PLAN OF CARE THAT INCLUDES PATIENT GOAL FOR HOME HEALTH. [code = SKILLED NURSE TO EVALUATE PATIENT, IDENTIFY PRIMARY AND CO-MORBID CONDITIONS CODED PER CODING GUIDELINES, AND DEVELOP PATIENT SPECIFIC PLAN OF CARE THAT INCLUDES PATIENT GOAL FOR HOME HEALTH.] Future Scheduled Test SKILLED NU RSE TO PRE-POUR MEDICATION PER MEDICATION LIST EACH VISIT [code = SKILLED NURSE TO PRE-POUR MEDICATION PER MEDICATION LIST EACH VISIT ] Future Scheduled Test SKILLED NU RSE TO O/A OF PATIENTS MENTAL/BEHAVIORAL STATUS, ASSESS VITAL SIGNS EACH VISIT ALLOW 2 PRNS FOR MEDICATION MANAGEMENT. [code = SKILLED NURSE TO O/A OF PATIENTS MENTAL/BEHAVIORAL STATUS, ASSESS VITAL SIGNS EACH VISIT ALLOW 2 PRNS FOR MEDICATION MANAGEMENT.] Future Scheduled Test SKILLED NU RSE FOR O/A OF GENERAL HEALTH STATUS OF PAIN, CARDIAC, RESPIRATORY, GASTROINTESTINAL, GENITOURINARY, SKIN, NEUROLOGIC, ENDOCRINE SYSTEMS TO IDENTIFY CHANGES ASSOCIATED WITH EXACERBATION FOR EARLY INTERVENTION OF COMPLICATIONS WEEKLY. [code = SKILLED NURSE FOR O/A OF GENERAL HEALTH STATUS OF PAIN, CARDIAC, RESPIRATORY, GASTROINTESTINAL, GENITOURINARY, SKIN, NEUROLOGIC, ENDOCRINE SYSTEMS TO IDENTIFY CHANGES ASSOCIATED WITH EXACERBATION FOR EARLY INTERVENTION OF COMPLICATIONS WEEKLY.] Future Scheduled Test SKILLED NU RSE TO ADMINISTER MEDICATIONS EACH VISIT AND PRE-POUR MEDICATIONS EACH VISIT PER MEDICATION LIST. [code = SKILLED NURSE TO ADMINISTER MEDICATIONS EACH VISIT AND PRE-POUR MEDICATIONS EACH VISIT PER MEDICATION LIST.] Future Scheduled Test SKILLED NU RSE FOR O/A AND SKILLED TEACHING RELATED TO MANAGEMENT OF DEPRESSIVE SYMPTOMS AND/OR DEPRESSION. SN TO REPORT SIGNIFICANT CHANGE IN DEPRESSIVE SYMPTOMS TO CLINICAL PROVIDER FOR EARLY INTERVENTION. [code = SKILLED NURSE FOR O/A AND SKILLED TEACHING RELATED TO MANAGEMENT OF DEPRESSIVE SYMPTOMS AND/OR DEPRESSION. SN TO REPORT SIGNIFICANT CHANGE IN DEPRESSIVE SYMPTOMS TO CLINICAL PROVIDER FOR EARLY INTERVENTION.] Future Scheduled Test SKILLED NU RSE FOR O/A AND TEACHING OF ENDOCRINE SYSTEM TO IDENTIFY CHANGES ASSOCIATED WITH EXACERBATION OF DIABETES FOR EARLY INTERVENTION OF COMPLICATIONS. [code = SKILLED NURSE FOR O/A AND TEACHING OF ENDOCRINE SYSTEM TO IDENTIFY CHANGES ASSOCIATED WITH EXACERBATION OF DIABETES FOR EARLY INTERVENTION OF COMPLICATIONS.] Future Scheduled Test SKILLED NU RSE FOR O/A AND TEACHING OF DIABETIC MANAGEMENT INCLUDING BLOOD SUGAR MONITORING/USE OF GLUCOMETER, DIABETIC DIET, LOWER EXTREMITY SKIN INSPECTION, PROPER SKIN/FOOT CARE, AND SIGNS AND SYMPTOMS HYPO/HYPERGLYCEMIA TO REPORT. [code = SKILLED NURSE FOR O/A AND TEACHING OF DIABETIC MANAGEMENT INCLUDING BLOOD SUGAR MONITORING/USE OF GLUCOMETER, DIABETIC DIET, LOWER EXTREMITY SKIN INSPECTION, PROPER SKIN/FOOT CARE, AND SIGNS AND SYMPTOMS HYPO/HYPERGLYCEMIA TO REPORT.] Future Scheduled Test SKILLED NU RSE TO PERFORM HOME SAFETY AND FALL ASSESSMENT AND PROVIDE INSTRUCTION TO IMPLEMENT HOME SAFETY AND FALL PREVENTION STRATEGIES. [code = SKILLED NURSE TO PERFORM HOME SAFETY AND FALL ASSESSMENT AND PROVIDE INSTRUCTION TO IMPLEMENT HOME SAFETY AND FALL PREVENTION STRATEGIES.] Future Scheduled Test SKILLED NU RSE FOR OBSERVATION AND ASSESSMENT OF PATIENTS PAIN LEVEL AND EFFECTIVENESS OF PAIN MANAGEMENT REGIMEN. SKILLED NURSE TO INSTRUCT PATIENT/CAREGIVER REGARDING PHARMACOLOGIC AND NON-PHARMACOLOGIC PAIN CONTROL MEASURES. SKILLED NURSE TO REPORT TO PHYSICIAN IF PAIN IS UNCONTROLLED WITH CURRENT PAIN MANAGEMENT REGIMEN. [code = SKILLED NURSE FOR OBSERVATION AND ASSESSMENT OF PATIENTS PAIN LEVEL AND EFFECTIVENESS OF PAIN MANAGEMENT REGIMEN. SKILLED NURSE TO INSTRUCT PATIENT/CAREGIVER REGARDING PHARMACOLOGIC AND NON-PHARMACOLOGIC PAIN CONTROL MEASURES. SKILLED NURSE TO REPORT TO PHYSICIAN IF PAIN IS UNCONTROLLED WITH CURRENT PAIN MANAGEMENT REGIMEN.] Future Scheduled Test SKILLED NU RSE TO INSTRUCT PATIENT/CAREGIVER ON COPD TO INCLUDE TEACHING AND SELF-MANAGEMENT RELATED TO COPD DISEASE PROCESS, SIGNS AND SYMPTOMS, AND COMPLICATIONS. [code = SKILLED NURSE TO INSTRUCT PATIENT/CAREGIVER ON COPD TO INCLUDE TEACHING AND SELF-MANAGEMENT RELATED TO COPD DISEASE PROCESS, SIGNS AND SYMPTOMS, AND COMPLICATIONS.] Future Scheduled Test PHYSICAL T HERAPIST TO EVALUATE PATIENT FOR MUSCLE STRENGTHING [code = PHYSICAL THERAPIST TO EVALUATE PATIENT FOR MUSCLE STRENGTHING ] Future Scheduled Test PATIENT BUTLRE S A RISK OF HOSPITALIZATION AND ED USE. SKILLED NURSE TO ESTABLISH SUPPORT MEASURES TO MINIMIZE RISK OF HOSPITALIZATION AND ED USE, AND INSTRUCT PATIENT/CAREGIVER ON METHODS TO REDUCE AVOIDABLE HOSPITALIZATION AND ED USE. [code = PATIENT HAS A RISK OF HOSPITALIZATION AND ED USE. SKILLED NURSE TO ESTABLISH SUPPORT MEASURES TO MINIMIZE RISK OF HOSPITALIZATION AND ED USE, AND INSTRUCT PATIENT/CAREGIVER ON METHODS TO REDUCE AVOIDABLE HOSPITALIZATION AND ED USE.] Future Scheduled Test SKILLED NU RSE TO ASSESS PATIENTS PSYCHOSOCIAL STATUS TO IDENTIFY POTENTIAL ISSUES THAT MAY COMPLICATE THE PROVISION OF THE PLAN OF CARE INCLUDING THE PATIENTS ABILITY TO ACCESS COMMUNITY RESOURCES AND PSYCHOSOCIAL SUPPORT SERVICES. [code = SKILLED NURSE TO ASSESS PATIENTS PSYCHOSOCIAL STATUS TO IDENTIFY POTENTIAL ISSUES THAT MAY COMPLICATE THE PROVISION OF THE PLAN OF CARE INCLUDING THE PATIENTS ABILITY TO ACCESS COMMUNITY RESOURCES AND PSYCHOSOCIAL SUPPORT SERVICES.] Future Scheduled Test SKILLED NU RSE WILL MAINTAIN SITUATIONAL AWARENESS FOR SAFETY AND WILL NOTIFY CLINICAL CHIROPRACTOR SOLE PRACTITIONER AND PHYSICIAN/PROVIDER WITH ANY CHANGE IN CONDITION. [code = SKILLED NURSE WILL MAINTAIN SITUATIONAL AWARENESS FOR SAFETY AND WILL NOTIFY CLINICAL CHIROPRACTOR SOLE PRACTITIONER AND PHYSICIAN/PROVIDER WITH ANY CHANGE IN CONDITION.] Future Scheduled Test OXYGEN VIA NASAL CANNULA) @ 2LITERS CONTINUOUS). SKILLED NURSE FOR O/A AND SKILLED TEACHING OF SAFE OXYGEN USE IN THE HOME. [code = OXYGEN VIA NASAL CANNULA) @ 2LITERS CONTINUOUS). SKILLED NURSE FOR O/A AND SKILLED TEACHING OF SAFE OXYGEN USE IN THE HOME.] Goal 2024-05-25 Patient Goal - GET BETTER Goal Patient Goal - GET BETTER Goal Provider Goal - A PLAN OF CARE WILL BE ESTABLISHED THAT MEETS PATIENT'S INTERMEDIATE NEEDS AND INCLUDES PATIENT GOAL FOR HOME HEALTH. Goal Provider Goal - PATIENT WILL COMPLY WITH MEDICATION WHEN SKILLED NURSE PRE-POURS MEDICATION THROUGHOUT CERTIFICATION PERIOD. Goal Provider Goal - ALTERED MENTAL/BEHAVIORAL STATUS WILL BE IDENTIFIED PROMPTLY AND INTERVENTION INITIATED QUICKLY TO MINIMIZE ASSOCIATED RISKS THROUGHOUT CERTIFICATION PERIOD. Goal Provider Goal - CHANGE IN GENERAL HEALTH STATUS WILL BE IDENTIFIED AND REPORTED TO PHYSICIAN FOR PROMPT INTERVENTION TO MINIMIZE ASSOCIATED RISKS THROUGHOUT CERTIFICATION PERIOD. Goal Provider Goal - PATIENT WILL COMPLY WITH MEDICATION WHEN SKILLED NURSE ADMINISTERS AND PRE-POURS MEDICATION THROUGHOUT CERTIFICATION PERIOD. Goal Provider Goal - PATIENT WILL REMAIN SAFE WITHOUT DECOMPENSATION IN DEPRESSIVE CONDITION, WHILE MAINTAINING OPTIMAL LEVEL OF MENTAL HEALTH AND WELL BEING THROUGHOUT CERTIFICATION PERIOD. Goal Provider Goal - PATIENT/CAREGIVER WILL VERBALIZE SIGNS AND SYMPTOMS OF EXACERBATION OF DIABETES REPORT TO NURSE/PHYSICIAN THROUGHOUT THE CERTIFICATION PERIOD. Goal Provider Goal - PATIENT/CAREGIVER WILL VERBALIZE/DEMONSTRATE KNOWLEDGE OF DIABETIC MANAGEMENT. CHANGES IN DIABETIC STATUS WILL BE IDENTIFIED AND REPORTED TO PHYSICIAN FOR PROMPT INTERVENTION THROUGHOUT THE CERTIFICATION PERIOD. Goal Provider Goal - PATIENT/CAREGIVER WILL VERBALIZE/DEMONSTRATE EFFECTIVE HOME SAFETY AND FALL PREVENTION STRATEGIES THROUGHOUT CERTIFICATION PERIOD. Goal Provider Goal - PATIENT/CAREGIVER WILL DEMONSTRATE UNDERSTANDING OF PHARMACOLOGIC AND NONPHARMACOLOGIC PAIN CONTROL MEASURES AND PATIENT WILL HAVE IMPROVEMENT IN PAIN INTERFERING WITH ACTIVITY EVIDENCED BY PAIN CONTROLLED AT LEVEL OF 7 OR LESS BY END OF CERTIFICATION PERIOD. Goal Provider Goal - PATIENT/CAREGIVER WILL VERBALIZE/DEMONSTRATE KNOWLEDGE AND MANAGEMENT OF COPD BY END OF EPISODE. Goal Provider Goal - A PHYSICAL THERAPY EVALUATION TO BE COMPLETED WITH RECOMMENDATIONS AND/OR WRITTEN PLAN OF TREATMENT ESTABLISHED FOR PHYSICIANS SIGNATURE. Goal Provider Goal - PATIENT WILL HAVE SUPPORT MEASURES ESTABLISHED TO PREVENT HOSPITALIZATION AND ED USE AND PATIENT/CAREGIVER WILL VERBALIZE/DEMONSTRATE METHODS TO REDUCE AVOIDABLE HOSPITALIZATION AND ED USE BY END OF EPISODE. Goal Provider Goal - PSYCHOSOCIAL NEEDS WILL BE IDENTIFIED AND PLAN IMPLEMENTED TO MINIMIZE RISK THROUGHOUT CERTIFICATION PERIOD. Goal Provider Goal - PATIENT WILL REMAIN SAFE IN THE COMMUNITY AND WILL BE FREE OF DANGER TO SELF AND OTHERS THROUGHOUT THE CERTIFICATION PERIOD. Goal Provider Goal - PATIENT/CAREGIVER WILL VERBALIZE/DEMONSTRATE UNDERSTANDING OF SAFE OXYGEN USE IN THE HOME THROUGHOUT THE EPISODE. Progress Notes Progress Notes <paragraph>[Visit Date: 2024 by QUINTON GIVENS RN]:</paragraph><paragraph>KB FOUND SITTING IN HER RECLINER IN HER LIVING ROOM PRIOR TO SN ARRIVAL. PT STATES SHE HAD JUST RETURNED FROM THE HOSPITAL FEW MINS TO SN VISIT. PT AOX4, MINIMALLY VERBAL WITH FLAT AFFECT IN HER HOSPITAL GURNEY THROUGHOUT MOST OF THE VISIT. CIGARETTE BUTTS IN ASHTRAY NEAR PT NOTED BY SN.PT IS CURRENTLY STILL ON CONTINUOS O2 VIA NC. OXYGEN AND SMOKE SAFETY EDUCATION DONE BY SN. PT VERBALIZED COMPLETE UNDERSTANDING. SN CALLED [facility] TO PULL HER NEWLY RX FOR ANTIBX (LEVOFLOXACIN 500MG DAILY) AND LASIX 20MG FROM [facility]. PHARM STAFF WAS ALSO NOTIFIED OF LASIX DOSE CHANGE FROM 40MG TO 20MG, DC OF PRAZOSIN WELL FOR GABAPENTIN AND INSULIN REFILLS. PHARM STAFF STATED MEDS AND INSULIN WOULD BE DELIVERED BY THE END OF DAY. SN PREPOURED CURRENT AVAILABLE MEDS ACCORDINGLY. AT THE END SN VISIT, PT COULD NOT MAKE IT TO BATHROOM AND SOILED HERSELF AND THE RECLINER. PT UNSTEADY. PT STATED HER WALKER WAS IN THE STORAGE UNIT D/T RECENT RENOVATIONS TO [facility] AND WOULD BE PICKED UP BY SON AFTER THE VISIT. PT MANAGED TO USE A CANE THAT WAS CLOSE BY, BUT PT WAS STILL UNSTEADY. SN MANAGED TO CHANGE PT'S GURNEY AND PUT ON A NEW BRIEF SOILED BLANKET OVER RECLINER WAS REPLACED BY SON. PT ENCOURAGED TO USE CANE IN MEANTIME AND KEEP IT CLOSE TO AVOID FALLS. PT REMINDED TO FOLLOW P WITH PCP IN A WEEK PERD/C INSTRUCTIONS. SN WOULD INCLUDE PHYSICAL THERAPT TO [facility]/POC FOR EVAL R/T STRENGTHENING AND BALANCING. PT SN VISIT WOULD CONTINUE [id number] FOR NURSING ASSESSMENT, MEDICATION MANAGEMENT AND CHRONIC DISEASE MGT.</paragraph> Encounters Start Date/Time End Date/Time Encounter Type Admission Type Attending Clinicians Care Facility Care Department Encounter ID Discharge Date Discharge Status Discharge Condition Discharge Reason Percent Goals Met 2024-03-28 00:00:00 2024-07-25 00:00:00 Outpatient RECERTIFIC ATION VIVIANE BURR [facility] [id number] 18.18
--- OUTSIDE RECORDS SUMMARY | 2024-06-11 19:57 | XMS_ITS | Clinical Summary ---
Author Organization Unknown Care Team Providers Care Project Management Specialist Name Role Phone DONNA HERRERA, WALE Unavailable Unavailable AMINAH VALLEJO, VIVIANE Unavailable Unavailable Payers Payer Name Policy Type Policy Number Effective Date Expira tion Date [facility] ([facility] [id number] MEDICAID [facility] [id number] Problems Condition Name Condition Details Condition Category [...] 07-24 00:00: 00 03-26 23:59 :00 No [id number] 40 mg EVERY AM 40 mg EVERY AM (route: oral) Med Classific ation: Gastroint estinal Therapy Agents Advair Diskus 250 mcg-50 mcg/dose powder for inhalation 07-24 00:00: 00 07-24 23:59 :00 No [id number] 1 inhalat ion INTO LUNGS TWICE A DAY 1 inhalation INTO LUNGS TWICE A DAY (route: inhalation ) Med Classific ation: Respirato ry Therapy Agents lisinopril 5 mg tablet 07-24 00:00: 00 03-26 23:59 :00 No [id number] 5 mg EVERY DAY 5 mg EVERY DAY (route: oral) Med Classific ation: Cardiovas cular Therapy Agents Ventolin HFA 90 mcg/actuati on aerosol inhaler 07-24 00:00: 00 03-26 23:59 :00 No [id number] 2 puff INTO LUNGS EVERY 6 HOURS NEEDED FOR 90 DAYS 2 puff INTO LUNGS EVERY 6 HOURS NEEDED FOR 90 DAYS (route: inhalation ) Med Classific ation: Respirato ry Therapy Agents mirtazapine 30 mg tablet 07-24 00:00: 00 03-26 23:59 :00 No [id number] 30 mg DAILY AT BEDTIME 30 mg DAILY AT BEDTIME (route: oral) Med Classific ation: Central Nervous System Agents gabapentin 300 mg capsule 07-24 00:00: 00 10-23 23:59 :00 No [id number] 3 capsule 3 TIMES DAILY 3 capsule 3 TIMES DAILY (route: oral) Med Classific ation: Central Nervous System Agents Colace 100 mg capsule 07-24 00:00: 00 07-24 23:59 :00 No [id number] 100 mg 2 TIMES DAILY 100 mg 2 TIMES DAILY (route: oral) Med Classific ation: Gastroint estinal Therapy Agents folic acid 1 mg tablet 07-24 00:00: 00 03-26 23:59 :00 No [id number] 1 mg DAILY 1 mg DAILY (route: oral) Med Classific ation: Electroly te Balance-N utritiona l Products furosemide 20 mg tablet 07-24 00:00: 00 03-26 23:59 :00 No [id number] 20 mg DAILY 20 mg DAILY (route: oral) Med Classific ation: Cardiovas cular Therapy Agents Humalog Nain KwikPen (U-100) 100 unit/mL subcutaneou s half-unit pen 07-24 00:00: 00 07-24 23:59 :00 No [id number] 10 unit 3 TIMES DAILY 10 unit 3 TIMES DAILY (route: subcutaneo us) Med Classific ation: Endocrine Lantus Solostar U-100 Insulin 100 unit/mL (3 mL) subcutaneou s pen 2022-05 00:00: 00 09-11 23:59 :00 No [id number] 35 unit BEDTIME 35 unit BEDTIME (route: subcutaneo us) Med Classific ation: Endocrine Minipress 1 mg capsule 07-24 00:00: 00 10-23 23:59 :00 No [id number] 1 mg BEDTIME 1 mg BEDTIME (route: oral) Med Classific ation: Cardiovas cular Therapy Agents thiamine HCl (vitamin B1) 100 mg tablet 07-24 00:00: 00 09-11 23:59 :00 No [id number] 100 mg DAILY 100 mg DAILY (route: oral) Med Classific ation: Electroly te Balance-N utritiona l Products aspirin 81 mg tablet,luh yed release 07-24 00:00: 00 03-26 23:59 :00 No [id number] 81 mg DAILY 81 mg DAILY (route: oral) Med Classific ation: Hematolog ical Agents metformin 500 mg tablet 07-24 00:00: 00 03-26 23:59 :00 No [id number] 500 mg 2 TIMES DAILY 500 mg 2 TIMES DAILY (route: oral) Med Classific ation: Endocrine prazosin 1 mg capsule 07-24 00:00: 00 03-26 23:59 :00 No [id number] 3 capsule BEDTIME 3 capsule BEDTIME (route: oral) Med Classific ation: Cardiovas cular Therapy Agents Seroquel 25 mg tablet 07-24 00:00: 00 03-26 23:59 :00 No [id number] 0.5 tablet EVERY 4 HOURS 0.5 tablet EVERY 4 HOURS (route: oral) Med Classific ation: Central Nervous System Agents albuterol sulfate HFA 90 mcg/actuati on aerosol inhaler 07-24 00:00: 00 03-26 23:59 :00 No [id number] 1 puff 4 TIMES DAILY 1 puff 4 TIMES DAILY (route: inhalation ) Med Classific ation: Respirato ry Therapy Agents hydroxyzine HCl 25 mg tablet 07-24 00:00: 00 03-26 23:59 :00 No [id number] 50 mg 3 TIMES DAILY 50 mg 3 TIMES DAILY (route: oral) Med Classific ation: Central Nervous System Agents insulin lispro (U-100) 100 unit/mL subcutaneou s pen 07-24 00:00: 00 03-26 23:59 :00 No [id number] 10 unit 3 TIMES DAILY 10 unit 3 TIMES DAILY (route: subcutaneo us) Med Classific ation: Endocrine magnesium 400 mg (as magnesium oxide) tablet 07-24 00:00: 00 03-26 23:59 :00 No [id number] 1 tablet DAILY 1 tablet DAILY (route: oral) Med Classific ation: Electroly te Balance-N utritiona l Products Nicorette 2 mg gum 07-24 00:00: 00 03-26 23:59 :00 No [id number] 1 gum EVERY 2 HOURS 1 gum EVERY 2 HOURS (route: buccal) Med Classific ation: Chemical Dependenc y, Agents to Treat nystatin 100,000 unit/gram topical powder 07-24 00:00: 00 03-26 23:59 :00 No [id number] Per instruc tions DAILY Per instructio ns DAILY (route: topical) Med Classific ation: Dermatolo gical ipratropium 0.5 mg-albutero l 3 mg (2.5 mg base)/3 mL nebulizatio n soln 07-24 00:00: 00 03-26 23:59 :00 No [id number] 3 mL 2 TIMES DAILY 3 mL 2 TIMES DAILY (route: inhalation ) Med Classific ation: Respirato ry Therapy Agents sertraline 25 mg tablet 08-09 00:00: 00 08-19 23:59 :00 No [id number] 1 tablet DAILY 1 tablet DAILY (route: oral) Med Classific ation: Central Nervous System Agents sertraline 50 mg tablet 07 00:00: 00 03-26 23:59 :00 No [id number] 1 tablet DAILY 1 tablet DAILY (route: oral) Med Classific ation: Central Nervous System Agents thiamine HCl (vitamin B1) 100 mg tablet 08-09 00:00: 00 08-24 23:59 :00 No [id number] 1 tablet 2 TIMES DAILY 1 tablet 2 TIMES DAILY (route: oral) Med Classific ation: Electroly te Balance-N utritiona l Products Lantus Solostar U-100 Insulin 100 unit/mL (3 mL) subcutaneou s pen 5-27 00:00: 00 10-23 23:59 :00 No [id number] 20 unit BEDTIME 20 unit BEDTIME (route: subcutaneo us) Med Classific ation: Endocrine thiamine HCl (vitamin B1) 100 mg tablet 429 00:00: 00 03-26 23:59 :00 No [id number] 1 tablet 2 TIMES DAILY 1 tablet 2 TIMES DAILY (route: oral) Med Classific ation: Electroly te Balance-N utritiona l Products pyridoxine (vitamin B6) 50 mg tablet 09-11 00:00: 00 03-26 23:59 :00 No [id number] 1 tablet DAILY 1 tablet DAILY (route: oral) Med Classific ation: Electroly te Balance-N utritiona l Products O2 - OXYGEN 5-31 00:00: 00 03-26 23:59 :00 No [id number] 2 Liter O2 - CONTINUOUS 2 Liter O2 - CONTINUOUS (route: Oxygen) Alternate Route: O2 - NASAL CANNULA. Med Classific ation: Medical Oxygen Advair Diskus 250 mcg-50 mcg/dose powder for inhalation 10-23 00:00: 00 03-26 23:59 :00 No [id number] 1 inhalat ion 2 TIMES DAILY 1 inhalation 2 TIMES DAILY (route: inhalation ) Med Classific ation: Respirato ry Therapy Agents albuterol sulfate HFA 90 mcg/actuati on aerosol inhaler 10-23 00:00: 00 03-26 23:59 :00 No [id number] 1 puff 4 TIMES DAILY 1 puff 4 TIMES DAILY (route: inhalation ) Med Classific ation: Respirato ry Therapy Agents gabapentin 300 mg capsule 10-23 00:00: 00 03-26 23:59 :00 No [id number] 1 capsule 3 TIMES DAILY 1 capsule 3 TIMES DAILY (route: oral) Med Classific ation: Central Nervous System Agents Lantus Solostar U-100 Insulin 100 unit/mL (3 mL) subcutaneou s pen 10-23 00:00: 00 03-26 23:59 :00 No [id number] 28 unit BEDTIME 28 unit BEDTIME (route: subcutaneo us) Med Classific ation: Endocrine trazodone 50 mg tablet 10-23 00:00: 00 03-26 23:59 :00 No [id number] 1 tablet BEDTIME 1 tablet BEDTIME (route: oral) Med Classific ation: Central Nervous System Agents amoxicillin 500 mg capsule 01-03 00:00: 00 01-09 23:59 :00 No [id number] 1 capsule 3 TIMES DAILY 1 capsule 3 TIMES DAILY (route: oral) Med Classific ation: Anti-Infe ctive Agents albuterol sulfate HFA 90 mcg/actuati on aerosol inhaler 2023-05 00:00: 00 Yes [id number] 1 puff 4 TIMES DAILY 1 puff 4 TIMES DAILY (route: inhalation ) Med Classific ation: Respirato ry Therapy Agents amoxicillin 875 mg-potassiu m clavulanate 125 mg tablet 2023-05 00:00: 00 03-31 23:59 :00 No [id number] 1 tablet 2 TIMES DAILY 1 tablet 2 TIMES DAILY (route: oral) Med Classific ation: Anti-Infe ctive Agents Anoro Ellipta 62.5 mcg-25 mcg/actuati on powder for inhalation 2023-05 00:00: 00 Yes [id number] 1 inhalat ion DAILY 1 inhalation DAILY (route: inhalation ) Med Classific ation: Respirato ry Therapy Agents aspirin 81 mg tablet,luh yed release 2023-05 00:00: 00 Yes [id number] 1 tablet DAILY 1 tablet DAILY (route: oral) Med Classific ation: Hematolog ical Agents Farxiga 10 mg tablet 2023-05 00:00: 00 Yes [id number] 1 tablet DAILY 1 tablet DAILY (route: oral) Med Classific ation: Endocrine folic acid 1 mg tablet 2023-05 00:00: 00 Yes [id number] 1 tablet DAILY 1 tablet DAILY (route: oral) Med Classific ation: Electroly te Balance-N utritiona l Products furosemide 20 mg tablet 2023-05 00:00: 00 04-06 23:59 :00 No [id number] 1 tablet DAILY 1 tablet DAILY (route: oral) Med Classific ation: Cardiovas cular Therapy Agents gabapentin 300 mg capsule 2023-05 00:00: 00 05-25 23:59 :00 No [id number] 3 capsule 3 TIMES DAILY 3 capsule 3 TIMES DAILY (route: oral) Med Classific ation: Central Nervous System Agents insulin lispro (U-100) 100 unit/mL subcutaneou s pen 2023-05 00:00: 00 Yes [id number] 10 unit 3 TIMES DAILY 10 unit 3 TIMES DAILY (route: subcutaneo us) Med Classific ation: Endocrine ipratropium 0.5 mg-albutero l 3 mg (2.5 mg base)/3 mL nebulizatio n soln 2023-05 00:00: 00 Yes [id number] 3 mL 4 TIMES DAILY 3 mL 4 TIMES DAILY (route: inhalation ) Med Classific ation: Respirato ry Therapy Agents Lantus Solostar U-100 Insulin 100 unit/mL (3 mL) subcutaneou s pen 2023-05 00:00: 00 Yes [id number] 10 unit BEDTIME 10 unit BEDTIME (route: subcutaneo us) Med Classific ation: Endocrine metformin 500 mg tablet 2023-05 00:00: 00 Yes [id number] 1 tablet 2 TIMES DAILY 1 tablet 2 TIMES DAILY (route: oral) Med Classific ation: Endocrine omeprazole 40 mg capsule,del ayed release 2023-05 00:00: 00 Yes [id number] 1 capsule DAILY 1 capsule DAILY (route: oral) Med Classific ation: Gastroint estinal Therapy Agents OXYGEN 2023-05 00:00: 00 Yes [id number] 2 Liter O2 - CONTINUOUS 2 Liter O2 - CONTINUOUS (route: Oxygen) Med Classific ation: Medical Oxygen pyridoxine (vitamin B6) 50 mg tablet 2023-05 00:00: 00 Yes [id number] 1 tablet DAILY 1 tablet DAILY (route: oral) Med Classific ation: Electroly te Balance-N utritiona l Products sertraline 50 mg tablet 2023-05 00:00: 00 05-27 23:59 :00 No [id number] 1 tablet DAILY 1 tablet DAILY (route: oral) Med Classific ation: Central Nervous System Agents thiamine HCl (vitamin B1) 100 mg tablet 2023-05 00:00: 00 Yes [id number] 1 tablet 2 TIMES DAILY 1 tablet 2 TIMES DAILY (route: oral) Med Classific ation: Electroly te Balance-N utritiona l Products Lasix 40 mg tablet 2023-05 00:00: 00 06-09 23:59 :00 No [id number] 1 tablet DAILY 1 tablet DAILY (route: oral) Med Classific ation: Cardiovas cular Therapy Agents gabapentin 300 mg capsule 05-27 00:00: 00 Yes [id number] 1 capsule 3 TIMES DAILY 1 capsule 3 TIMES DAILY (route: oral) Med Classific ation: Central Nervous System Agents mirtazapine 15 mg tablet 05-27 00:00: 00 Yes [id number] 1 tablet BEDTIME 1 tablet BEDTIME (route: oral) Med Classific ation: Central Nervous System Agents prazosin 2 mg capsule 05-27 00:00: 00 06-09 23:59 :00 No [id number] 1 capsule BEDTIME 1 capsule BEDTIME (route: oral) Med Classific ation: Cardiovas cular Therapy Agents sertraline 100 mg tablet 05-27 00:00: 00 Yes [id number] 1 tablet DAILY 1 tablet DAILY (route: [...] MUSCLE STRENGTHING ] Future Scheduled Test PATIENT BUTLER S A RISK OF HOSPITALIZATION AND ED [...] AWARENESS FOR SAFETY AND WILL NOTIFY CLINICAL TARPER AND PHYSICIAN/PROVIDER WITH ANY CHANGE IN CONDITION. [code = SKILLED NURSE WILL MAINTAIN SITUATIONAL AWARENESS FOR SAFETY AND WILL NOTIFY CLINICAL TARPER AND PHYSICIAN/PROVIDER WITH ANY CHANGE IN CONDITION.] [...] CARE WILL BE ESTABLISHED THAT MEETS PATIENT'S [facility] NEEDS AND INCLUDES PATIENT GOAL FOR HOME [...] (LEVOFLOXACIN 500MG DAILY) AND LASIX 20MG FROM [facility]. PHARM STAFF WAS ALSO NOTIFIED OF [...] THE STORAGE UNIT D/T RECENT RENOVATIONS TO [facility] AND WOULD BE PICKED UP BY SON [...] 2024-07-25 00:00:00 Outpatient RECERTIFIC ATION VIVIANE BURR [facility] [id number] 18.18
--- OUTSIDE RECORDS SUMMARY | 2024-06-11 19:58 | XMS_ITS | Patient Health Record ---
Author Organization [facility] Address [address] [place] [id number] Care Team Providers Care Brand Ambassador Name Role Phone Mariah HERRERA, Jair Primary Care Provider Maxx Cunningham Unavailable [phone] REASON FOR REFERRAL No Information SOCIAL HISTORY Sex Assigned At : Social History Observation Description Sex Assigned At Unknown PLAN OF TREATMENT No Information Insurance Providers Payer Name Payer Address Payer Phone Subscriber Number Group Number Insured Name Patient Relationship to Insured Coverage Start Date Coverage End Date [facility] [address] [address] [place], [place] [id number] SHANKAR Self - patient is the insured
[2024-06-11 21:14] VITALS: BP 96/46; PULSE 9; RESP 20; TEMP 36.7; O2SAT 95
[2024-06-11 23:07] LABS: Glucose, Whole Blood 246 mg/dL (60-115)
[2024-06-11] MEDS: Insulin Glargine,Hum.rec.anlog 100 UNIT/ML 10 ML VIAL 15 UNIT SUBCUT (23:38)
[2024-06-11] MEDS: traZODone HCL 50 MG TABLET PO (23:38)
[2024-06-11] MEDS: Gabapentin 300 MG CAPSULE PO (23:39)
[2024-06-11] MEDS: Mirtazapine 30 MG TABLET PO (23:39)
[2024-06-12 04:31] VITALS: BP 103/54; PULSE 86; RESP 16; TEMP 36.8; O2SAT 94
[2024-06-12] MEDS: Omeprazole 40 MG CAPSULE.DR PO (05:13)
--- NOTE | 2024-06-12 05:56 | PC.NURSE ---
Patient is alert and oriented x4, Patient is able to make her needs know. Patient takes oral medications whole with water. VSS. Patient reports discomfort to b/l inner buttock, pericare provided, barrier cream applied for protection, purewick replaced. Patient currently resting on stretcher bed, call moore in reach, plan of care ongoing.
--- NOTE | 2024-06-12 07:00 | PC.NURSE ---
Report taken from Eileen Carranza RN
[2024-06-12 07:58] LABS: Glucose, Whole Blood 291 mg/dL (60-115)
[2024-06-12 08:06] VITALS: BP 112/51; PULSE 83; RESP 16; TEMP 36.6; O2SAT 94
[2024-06-12] MEDS: Insulin Lispro 100 UNIT/ML 3 ML VIAL SUBCUT ×2 (08:07→14:40)
[2024-06-12] MEDS: Metoprolol Succinate ER 25 MG TAB.ER.24H PO (08:08)
[2024-06-12] MEDS: Aspirin Enteric Coated 81 MG TABLET.DR PO (08:08)
[2024-06-12] MEDS: Folic Acid 1 MG TABLET PO (08:08)
[2024-06-12] MEDS: Sertraline HCL 50 MG TABLET PO (08:09)
[2024-06-12] MEDS: methADONE HCl 20 MG/2 ML ORAL.CONC 115 MG PO (08:09)
[2024-06-12] MEDS: Gabapentin 300 MG CAPSULE PO ×2 (08:09→14:40)
[2024-06-12] MEDS: Furosemide 20 MG TABLET PO (08:09)
--- NOTE | 2024-06-12 09:03 | HE.PHANOTE ---
Re Methadone Pt was here on 06/09/24, receiving 125mg of Methadone. They also received 115mg once last night 06/11/24. No need to re-titrate, will confirm in home med list.
--- NOTE | 2024-06-12 10:19 | MHC.CM.ED ---
Addendum entered by Carmen Mendez 06/12/24 14:06: Patient aware referral could be an hour away. Patient is requesting not to go to the [facility]. Is aware placement could be in [place] or further. Original Note: Received case management consult overnight. Patient was d/c'd from [facility] on 06/09. STR was recommended at that time but patient is on methadone daily and local placement was not able to be found at that time. Patient decided to go home with resumption of [facility] and [facility] for methadone. Patient was too weak at home and was unable to get her daily methadone. Patient is now agreeable to rehab. Repeat PT eval completed. Short term rehab is recommended. Referral will be broadcasted in [facility]. Continue to monitor for d/c needs.
[2024-06-12] MEDS: levoFLOXacin 500 MG TABLET PO (11:13)
[2024-06-12 14:39] LABS: Glucose, Whole Blood 311 mg/dL (60-115)
--- NOTE | 2024-06-12 15:29 | PC.NURSE ---
patient was transported by this RN from ED main to ED overflow unit. patient slide transfer into hospital bed, neurophysiological technician and this RN rolled patient to get additional blankets out from patient, plastic baggie of blue pills stuck to patients bottom. this RN finished rolling patient with neurophysiological technician and questioned patient about unmarked pills, patient stated she did not know how they got stuck to her bottom. patient belongings then searched, additional unmarked bag of blue pills found. a total of 38 blue-[place] pills found on patient. patient then stated they are clonazepam and she buys them off of someone, they are not prescribed. ED security called for additional search- no other substances found. patient then attempted to call someone to request more pills to be brought in which was overheard by staff. patient then alerted by This RN and Security then alerted patient that they will not have visitors during this hospital stay. patient became tearful stating she wants to leave the hospital, this RN reassured patient that we will talk with case management. patient also given info on recovery resources but denies. pills were disposed of properly with YONI Kuo. pill description placed into drug identifier and supposedly is clonazepam 1mg. ED charge nurse made aware of situation, ED security made aware of situation and patient primary nurse made aware of situation, case management made aware, ED provider made aware.
--- NOTE | 2024-06-12 15:30 | PHA.MEDREC ---
Addendum entered by Yari Spencer RPh 06/12/24 15:51: reviewed by [facility]. Original Note: Pharmacy Consult ? Medication Reconciliation Pharmacy has completed the medication reconciliation. Patient just recently discharged on 06/09 from facility. I reviewed the packet and it looks like the patient decreased from Furosemide 40mg to Furosemide 20mg and the patient confirmed that change. Also the patient was prescribed a Levofloxacin 500mg regimen once every 24 hours and she confirmed she has 1 pill of that left. The Dr stopped the Prazosin 1mg tab and the Valsartan 40mg tab which the patient confirmed she stopped taking those as well. She confirmed the Gabapentin 300mg tab and stated she is taking 3 tabs three times a day of that. She also stated she was taking1 tab of 100mg of the Trazodone at bedtime as needed but looking in claims Trazodone 50mg tabs have only been consistently filled so I left it as 50mg tabs at bedtime as needed. The patient confirmed her Methadone dosage and confirmed she is taking 115mg of it daily and stated that was the only medication she took today, everything else was taken yesterday,
[2024-06-12 15:38] VITALS: BP 94/62; PULSE 89; RESP 20; TEMP 36.4; O2SAT 93
--- NOTE | 2024-06-12 16:08 | PC.NURSE ---
patient requested to leave AMA, ED provider notified, ED case management notified, security notified.
--- NOTE | 2024-06-12 16:11 | PC.NURSE ---
AMA form signed by patient
--- NOTE | 2024-06-12 16:20 | PC.NURSE ---
pt was not seen or assessed by this nurse, pt is leaving AMA with security and was discharged by Mariya VALLEJO.
--- NOTE | 2024-06-12 16:31 | PC.NURSE ---
patient got herself dressed in bed with minimal assistance, patient dressed appropriatly for discharge. patient stood and pivoted into wheelchair with minimal assistance. patient wheeled to ER waiting room for family machine pecan picker with paperwork.
--- NOTE | 2024-06-12 16:44 | MHC.CM.ED ---
CM was made aware that patient has signed out AMA. Family to transport patient home.
== END 2024-06-12 16:20 | disposition still patient (30) ==
PROVIDERS: Emergency Provider Emergency Medicine; PCP Internal Medicine
DX: R53.81 Other malaise (principal); R53.1 Weakness; R26.2 Difficulty in walking, not elsewhere classified; E11.9 Type 2 diabetes mellitus without complications; I11.0 Hypertensive heart disease with heart failure; I50.9 Heart failure, unspecified; J44.9 Chronic obstructive pulmonary disease, unspecified; F11.20 Opioid dependence, uncomplicated; F19.10 Other psychoactive substance abuse, uncomplicated; F14.20 Cocaine dependence, uncomplicated; B17.9 Acute viral hepatitis, unspecified; F17.210 Nicotine dependence, cigarettes, uncomplicated; Z99.81 Dependence on supplemental oxygen; Z79.4 Long term (current) use of insulin; Z79.02 Long term (current) use of antithrombotics/antiplatelets; Z79.899 Other long term (current) drug therapy; Z79.84 Long term (current) use of oral hypoglycemic drugs; Z03.818 Encounter for observation for suspected exposure to other biological agents ruled out; Z53.29 Procedure and treatment not carried out because of patient's decision for other reasons
CPT/HCPCS: 0241U; 36415; 51798; 80048; 80076; 80307; 82550; 82947; 83735; 83880; 84443; 85025; 86140; 93005; 97162; 99285

== ENCOUNTER → 2024-06-11 16:05 | Outpatient (BNV) | payer OTHER, SELFPAY | PROVIDERS: Emergency Provider Emergency Medicine; PCP Internal Medicine; Visit Provider Internal Medicine | DX: R00.0 Tachycardia, unspecified (principal); I45.10 Unspecified right bundle-branch block; I45.81 Long QT syndrome | CPT/HCPCS: 93010 ==

== ENCOUNTER 2024-09-17 15:59 | Outpatient (AMB) | payer OTHER, SELFPAY ==
--- NOTE | 2024-09-17 16:13 | MHC.PC.OV ---
Vital Signs 09/17/24 16:28 Height 5 ft Weight 186 lb BMI 36.3 BP 108/68 Blood Pressure Location Lt brachial Position Sitting Pulse 90 Pulse Source Pulse Oximeter Temp 96.6 F L Temp Source Temporal Artery Scan Pulse Oximetry (%) 95 Oxygen Delivery Method Room Air Oxygen Flow Rate 2 Intake Visit Reasons: Discharge follow up Intake Note: Patient is here for hospital discharge follow up. Patient was discharged from [facility] on 07/31/24 to Carlie Wilkins. 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 Accompanied by: Son Allergies acetaminophen [Vicodin] Allergy (Unknown, Verified 09/17/24 16:32) Unknown hydrocodone [Vicodin] Allergy (Unknown, Verified 09/17/24 16:32) Unknown sumatriptan [From IMITREX] Allergy (Unknown, Verified 09/17/24 16:32) VOMITING,RASH Tobacco use date assessed: 09/17/24 Dental Screening Dental Screen Date: 09/17/24 Did you have a dental visit in the last 12 months?: No Did you have a dental problem in the last 6 months where you did not have access to dental care?: No Was dental information given to patient?: Patient has dentist HPI Discharge follow up HPI Details start 2 weeks ago R knee weakess and cannot walk also states , still smoking. 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 Mother Diabetes Social History Household Members: Family Household Members Other:: sons Housing: Apartment Are you a primary aged or disabled care worker to a significant other at home: No Do you presently have visiting nurse or other home services: Yes 75 years or older and lives alone: No Alcohol intake: former Comment: Pt refusing bed/chair alarm- steady on feet Patient Tobacco Use Status: Current everyday Tobacco user Tobacco use type: Cigarette Cigarette Packs Per Day: 1 Cigarettes Per Day: 20.0 Years Smoked: 30 e-Cigarette/Vaping Use: Never Used Second Hand Smoke Exposure: Yes Substance Use Type: Marijuana Advance Directives Date on File: 05/31/24 service: No Current occupational status: disabled Sexual orientation: Straight/Heterosexual Gender identity: Female Cognitive needs: Yes Hearing needs: No Vision needs: No Questionnaire PHQ-9 Over the last 2 weeks, how often have you been bothered by any of the following problems? 1. Little interest or pleasure in doing things: not at all 2. Feeling down, depressed, or hopeless: not at all 3. Trouble falling or staying asleep, or sleeping too much: several days 4. Feeling tired or having little energy: several days 5. Poor appetite or overeating: not at all 6. Feeling bad about yourself - or that you are a failure or have let yourself or your family down: not at all 7. Trouble concentrating on things, such as reading the newspaper or watching television: not at all 8. Moving or speaking so slowly that other people could have noticed. Or the opposite - being so fidgety or restless that you have been moving around a lot more than usual: not at all 9. Thoughts that you would be better off or of hurting yourself in some way: not at all Total score: 2 95292 - PHQ-9 Billing: Yes Source: Developed by Drs. Maxx Vergara, Minnie Valle, Kashmir Johnson and colleagues, with an educational chandu from [employer]. Thrive Questionnaire Date Thrive assessed: 09/17/24 I am a: Parent/Caregiver What is your living situation today?: I have a steady place to live Within the past 12 months, did the food you bought not last and you didn't have the money to get more?: Often true Within the past 12 months, did you worry whether your food would run out before you got money to buy more?: Never true Do you have trouble paying for medicines?: No Do you have trouble getting transportation to medical appointments?: No Do you have trouble paying your heating and electricity bill?: No Do you have trouble taking care of your child, family member or friend?: No Do you have trouble with day-to-day activities such as bathing, preparing meals, shopping, managing finances, etc.?: No Are you currently unemployed and looking for a job?: No Are you interested in more education?: No Please select the resources that you would like help with: None Currently or been in a relationship where the following occur: No concerns reported THRIVE Score: 1 AUDIT C Alcohol Use Questionnaire (AUDIT-C) 1. How often do you have a drink containing alcohol?: Never 3. How often do you have six or more drinks on one occasion?: Never Total Score: 0 WILD-7 AMB Questionnaire WILD-7 Date WILD - 7 assessed: 09/17/24 Feeling nervous, anxious, or on edge: 1 = Several days Not being able to stop or control worryin = Several days Worrying too much about different things: 1 = Several days Trouble relaxin = Not at all Being so restless that it is hard to sit still: 0 = Not at all Becoming easily annoyed or irritable: 0 = Not at all Feeling afraid as if something awful might happen: 1 = Several days Total WILD-7 score (0-4 normal; 5-9 mild; 10-14 moderate; 15-21 severe): 4 Source: Developed by Drs. Maxx Vergara, Minnie Valle, Kashmir Johnson and colleagues, with an educational chandu from [employer]. WILD-7 Assessment Billing WLID-7 Assessment Tool: WILD-7 Assessment 79064 Physical exam (Primary Care) Vital Signs: Last Vital Signs Temp 96.6 F L 09/17/24 16:28 Pulse 90 09/17/24 16:28 BP 108/68 09/17/24 16:28 Pulse Ox 95 09/17/24 16:28 Oxygen Delivery Method Room Air 09/17/24 16:28 Oxygen Flow Rate 2 09/17/24 16:28 BMI result Body Mass Index 36.3 Tobacco/Smoking Status: Tobacco use Status Tobacco use date assessed 09/17/24 09/17/24 16:42 Patient Tobacco Use Status Current everyday Tobacco 09/17/24 16:13 Tobacco use type Cigarette 09/17/24 16:13 e-Cigarette/Vaping Use Never Used 09/17/24 16:13 PHQ-9: PHQ-9 Score PHQ-9: Total score 2 09/17/24 16:47 Thrive Assessment: Date of Thrive Assessment Date Thrive assessed 09/17/24 09/17/24 16:24 Currently or been in a relationship where the following occur: No concerns reported Const General: alert; No acute distress Eyes Conjunctivae: conjunctivae normal Resp Auscultation: clear to auscultation bilaterally Cardio Rate: regular rate Rhythm: regular rhythm GI Inspection: Yes normal to inspection Extrem Other: +2 edema with pinkish lower extremity collar with tightness on the skin no open wounds noted. Patient declined showing the gluteal area General: Yes edema Coding Level of Care Code Est Pt Level 4 (79178) Complex EM visit Add On G2211 Diagnoses COPD (chronic obstructive pulmonary disease) J44.9 Type 2 diabetes mellitus with hyperglycemia E11.65 Hyperlipidemia E78.5 MDD (major depressive disorder), recurrent episode, moderate F33.1 Aortic stenosis I35.0 Polysubstance abuse F19.10 Obstructive sleep apnea G47.33 Knee pain, right M25.561 Breast cancer screening by mammogram Z12.31 Osteoporosis M81.0 Tobacco abuse Z72.0 Additional Codes WILD-7 Assessment Billing - WILD-7 Assessment Tool: WILD-7 Assessment 76178 ([id number]) PHQ-9 - 32299 - PHQ-9 Billing: Yes ([id number]) Assessment & Plan Assessment & Plan (1) COPD (chronic obstructive pulmonary disease): Code(s): J44.9 - Chronic obstructive pulmonary disease, unspecified Category: Medical Plan: Continue with Anoro inhaler and albuterol as needed. Patient ask for nebulizer machine (2) Type 2 diabetes mellitus with hyperglycemia: Code(s): E11.65 - Type 2 diabetes mellitus with hyperglycemia Category: Medical Plan: Decrease the amount of carbohydrate intake, pasta, bread, rice and potatoes are all sugar and that is aside from all the sweet stuff, remember that fruits are good but they are Sweet also. Patient on Farxiga 10 mg once a day Lantus 20 units at bedtime lispro sliding scale metformin 500 mg twice a day. Blood work requested (3) Hyperlipidemia: Code(s): E78.5 - Hyperlipidemia, unspecified Category: Medical Plan: Avoid fried foods, chicken skin, eggs, butter margarine, pastries and meat. Be it pork or beef they have a lot of cholesterol LDL goal of less than 100 and triglyceride of less than 150 (4) MDD (major depressive disorder), recurrent episode, moderate: Code(s): F33.1 - Major depressive disorder, recurrent, moderate Category: Medical Plan: Patient is advised continue on with counseling and therapy on sertraline Seroquel prazosin mirtazapine. Patient states has a psychiatrist and therapist pending (5) Aortic stenosis: Comment: February 2023 moderate 1.1 cm Code(s): I35.0 - Nonrheumatic aortic (valve) stenosis Category: Medical Plan: Advised continue monitoring with echocardiogram. Patient states echocardiogram done in the hospital was improved. (6) Polysubstance abuse: Code(s): F19.10 - Other psychoactive substance abuse, uncomplicated Category: Medical Plan: Continue with the methadone clinic (7) Obstructive sleep apnea: Comment: Can not tolerate CPAP Code(s): G47.33 - Obstructive sleep apnea (adult) (pediatric) Category: Medical Plan: Discussed the importance of CPAP treatment but patient can not tolerate (8) Knee pain, right: Code(s): M25.561 - Pain in right knee Category: Medical (9) Breast cancer screening by mammogram: Code(s): Z12.31 - Encounter for screening mammogram for malignant neoplasm of breast Category: Medical (10) Osteoporosis: Code(s): M81.0 - Age-related osteoporosis without current pathological fracture Category: Medical (11) Tobacco abuse: Code(s): Z72.0 - Tobacco use Category: Medical Plan: Patient is strongly advised to stop smoking Plan History of Present Illness The patient is a 59-year-old female presenting with follow-up care for chronic medical conditions including COPD, polysubstance abuse, nephrolithiasis, diabetes mellitus, hypercholesterolemia, and aortic stenosis. She was recently hospitalized for a urinary tract infection complicated by hypotension, with Pseudomonas isolated in the urine culture. The patient reports resolution of hypotension with intravenous therapy. Additionally, the patient complains of right knee pain, which began approximately two weeks prior to the visit without reported trauma, and has impacted her ability to mobilize effectively. No imaging studies have been performed on the knee, and she described swelling at home when engaging in limited mobility. The patient is currently smoking, expressing difficulty quitting, which may influence her overall health management. Health Maintenance - Continues therapy with Farxiga and lisinopril for diabetes mellitus and hypercholesterolemia. - Advised continuation of CPAP therapy for mitigation of sleep apnea symptoms. - Encouraged to receive the shingles vaccination. - Discussed importance of home BP monitoring. Social History - Current smoker with expressed intent to quit. - Reduced activity levels due to right knee pain and COPD exacerbation. - Reports recent move with loss of belongings, impacting daily living needs. - Noted challenges with mobility due to chronic medical conditions. Review of Systems - Musculoskeletal: Reports pain and swelling in the right knee. - Integumentary: Reports bed sore from decreased activity. - Respiratory: Reports chronic dyspnea, exacerbated while standing or walking. - Cardiovascular: Denies chest pain or palpitations. - General: Reports recent hospitalization for hypotension and UTI. - Social: Reports current smoking, with struggles in cessation attempts. Physical Exam - Musculoskeletal- Exam of right knee indicates limited pain upon standing and minor swelling noticed by the patient at home; no x-ray performed at this time. Results - Labs: Urine culture positive for Pseudomonas. - Tests: No x-rays of right knee performed to date. Plan The patient is advised to continue current medications for diabetes and hypercholesterolemia. A CPAP device should be used consistently to help manage sleep apnea symptoms. It is recommended to obtain an x-ray for the right knee to assess the pain and swelling, with further investigation pending results. She is encouraged to partake in smoking cessation programs to aid in eliminating smoking habits. Continuous monitoring of blood pressure and blood glucose levels is advisable for optimal control of her chronic diseases. Follow-up appointments should be scheduled for continuous management of her medical conditions and assessment of her knee complaint pending imaging results. Patient was informed and verbally consented to the use of an ambient scribe for clinic note documentation during this visit. Discussion Notes During our conversation, we discussed the patient?s chronic conditions, emphasizing adherence to current medication regimens, including Farxiga and lisinopril. The necessity of CPAP usage was also re-emphasized for managing her sleep apnea. We discussed the potential benefits of quitting smoking and available cessation support. For her right knee, I explained the rationale for an x-ray as an essential next step to determine the cause of her symptoms. I also discussed following up on these issues during future visits and emphasized home management strategies like monitoring her blood pressure and following through on recommended vaccinations, including the shingles shot. Patient Instructions - Continue taking your medications as prescribed. - Schedule and complete an x-ray of the right knee to assess the pain and swelling. - Use CPAP consistently nightly. - Engage in smoking cessation programs to help quit smoking. - Monitor your blood pressure at home regularly. - Schedule follow-up visits for chronic condition management and assessment of knee pain. - Obtain the shingles vaccination as discussed. - Increase mobility gradually and cautiously to avoid exacerbation of knee pain. Orders: Orders Comprehensive Met. Panel Today E11.65 - Type 2 diabetes mellitus with hyperglycemia Free T4 (Free Thyroxine) Today E11.65 - Type 2 diabetes mellitus with hyperglycemia Vitamin B12 and Folate Today E11.65 - Type 2 diabetes mellitus with hyperglycemia Microalbumin, Random (w Creat) Today E11.65 - Type 2 diabetes mellitus with hyperglycemia XR DEXA axial skeleton Today M81.0 - Age-related osteoporosis without current pathological fracture AMB Hemoglobin A1c Today E11.65 - Type 2 diabetes mellitus with hyperglycemia Complete Blood Count Auto Diff Today E11.65 - Type 2 diabetes mellitus with hyperglycemia Lipid Panel Today E11.65 - Type 2 diabetes mellitus with hyperglycemia, E78.00 - Pure hypercholesterolemia, unspecified Thyroid Stimulating Hormone Today E11.65 - Type 2 diabetes mellitus with hyperglycemia Vitamin D 25-OH Total Today E11.65 - Type 2 diabetes mellitus with hyperglycemia Hemoglobin A1c Today E11.65 - Type 2 diabetes mellitus with hyperglycemia Creatinine Urine Today E11.65 - Type 2 diabetes mellitus with hyperglycemia XR knee RT 2V Today M25.561 - Pain in right knee MM tomosynthesis screening BI Today Z12.31 - Encounter for screening mammogram for malignant neoplasm of breast Medications: New nebulizers (Aeroneb Go Nebulizer) As directed 1 ea 0RF J44.9 - Chronic obstructive pulmonary disease, unspecified Discontinued levofloxacin last dose to be 06/13/24 Discontinued Reason: Doctor's Order 500 mg PO Q24H 4 tabs 0RF dapagliflozin propanediol (Farxiga) Discontinued Reason: Doctor's Order 10 mg PO DAILY 30 tabs 0RF
[2024-09-17 16:28] VITALS: BP 108/68; PULSE 90; TEMP 35.9; O2SAT 95; BMI 36.3
--- OUTSIDE RECORDS SUMMARY | 2024-09-17 17:25 | XMS_ITS | Clinical Summary ---
Author Organization Unknown Care Team Providers Care Ship Loader Name Role Phone DONNA HERRERA, WALE Unavailable Unavailable [facility]IAISON, MATTY Unavailable Unavailable AMINAH VALLEJO, VIVIANE Unavailable Unavailable NEGRA VALLEJO, LISBET Unavailable Unavailable Payers Payer Name Policy Type Policy Number Effective Date Expira tion Date [facility] [place] [facility] [place] [facility] [id number] MEDICAID [facility] [id number] Problems Condition Name Condition Details Condition Category Status Onset Date Resolution Date Last Treatment Date Treating Clinician Comments UNSPECIFIED DIASTOLIC (CONGESTIVE) HEART FAILURE Active 07-26 00:00: 00 CHRONIC RESPIRATORY FAILURE WITH HYPOXIA Active 07-31 00:00: 00 CHRONIC OBSTRUCTIVE PULMONARY DISEASE, UNSPECIFIED Active 07-31 00:00: 00 OTHER SPECIFIED ANXIETY DISORDERS Active 07-31 00:00: 00 ALCOHOL USE, UNSPECIFIED, UNCOMPLICATE D Active 07-31 00:00: 00 TYPE 2 DIABETES MELLITUS WITHOUT COMPLICATION S Active 07-31 00:00: 00 OPIOID USE, UNSPECIFIED, UNCOMPLICATE D Active 07-31 00:00: 00 TOBACCO USE Active 07-31 00:00: 00 GASTRO-ESOPH AGEAL REFLUX DISEASE WITHOUT ESOPHAGITIS Active 07-31 00:00: 00 DYSURIA Active 07-31 00:00: 00 FATTY (CHANGE OF) LIVER, NOT ELSEWHERE CLASSIFIED Active 07-31 00:00: 00 IRON DEFICIENCY ANEMIA, UNSPECIFIED Active 07-31 00:00: 00 Allergies, Adverse Reactions, Alerts Allergy Name Allergy Type Status Severity Reaction(s) Onset Date Inactive Date Treating Clinician Comments IMITREX Propensity to adverse reactions Active 2024-07 22:09:0 3 VICODIN Propensity to adverse reactions Active 2024-07 22:09:1 8 Medications Ordered Medication Name Filled Medication Name Start Date Stop Date Current Medication? Ordering Clinician Indication Dosage Frequency Signature (SIG) Comments Components omeprazole 40 mg capsule,del ayed release 07-24 00:00: 00 03-26 23:59 :00 No [id number] 40 mg EVERY AM 40 mg EVERY AM (route: oral) Med Classific ation: Gastroint estinal Therapy Agents Advair Diskus 250 mcg-50 mcg/dose powder for inhalation 07-24 00:00: 00 07-24 23:59 :00 No [id number] 1 inhalat ion INTO LUNGS TWICE A DAY 1 inhalation INTO LUNGS TWICE A DAY (route: inhalation ) Med Classific ation: Respirato ry Therapy Agents lisinopril 5 mg tablet 07-24 00:00: 00 03-26 23:59 :00 No [id number] 5 mg EVERY DAY 5 mg EVERY DAY (route: oral) Med Classific ation: Cardiovas cular Therapy Agents Ventolin HFA 90 mcg/actuati on aerosol inhaler 07-24 00:00: 00 03-26 23:59 :00 No [id number] 2 puff INTO LUNGS EVERY 6 HOURS NEEDED FOR 90 DAYS 2 puff INTO LUNGS EVERY 6 HOURS NEEDED FOR 90 DAYS (route: inhalation ) Med Classific ation: Respirato ry Therapy Agents mirtazapine 30 mg tablet 07-24 00:00: 00 03-26 23:59 :00 No [id number] 30 mg DAILY AT BEDTIME 30 mg DAILY AT BEDTIME (route: oral) Med Classific ation: Central Nervous System Agents gabapentin 300 mg capsule 07-24 00:00: 00 10-23 23:59 :00 No [id number] 3 capsule 3 TIMES DAILY 3 capsule 3 TIMES DAILY (route: oral) Med Classific ation: Central Nervous System Agents Colace 100 mg capsule 07-24 00:00: 00 07-24 23:59 :00 No [id number] 100 mg 2 TIMES DAILY 100 mg 2 TIMES DAILY (route: oral) Med Classific ation: Gastroint estinal Therapy Agents folic acid 1 mg tablet 07-24 00:00: 00 03-26 23:59 :00 No [id number] 1 mg DAILY 1 mg DAILY (route: oral) Med Classific ation: Electroly te Balance-N utritiona l Products furosemide 20 mg tablet 07-24 00:00: 00 03-26 23:59 :00 No [id number] 20 mg DAILY 20 mg DAILY (route: oral) Med Classific ation: Cardiovas cular Therapy Agents Humalog Nain KwikPen (U-100) 100 unit/mL subcutaneou s half-unit pen 07-24 00:00: 00 07-24 23:59 :00 No [id number] 10 unit 3 TIMES DAILY 10 unit 3 TIMES DAILY (route: subcutaneo us) Med Classific ation: Endocrine Lantus Solostar U-100 Insulin 100 unit/mL (3 mL) subcutaneou s pen 2022-05 00:00: 00 09-11 23:59 :00 No [id number] 35 unit BEDTIME 35 unit BEDTIME (route: subcutaneo us) Med Classific ation: Endocrine Minipress 1 mg capsule 07-24 00:00: 00 10-23 23:59 :00 No [id number] 1 mg BEDTIME 1 mg BEDTIME (route: oral) Med Classific ation: Cardiovas cular Therapy Agents thiamine HCl (vitamin B1) 100 mg tablet 07-24 00:00: 00 09-11 23:59 :00 No [id number] 100 mg DAILY 100 mg DAILY (route: oral) Med Classific ation: Electroly te Balance-N utritiona l Products aspirin 81 mg tablet,luh yed release 07-24 00:00: 00 03-26 23:59 :00 No [id number] 81 mg DAILY 81 mg DAILY (route: oral) Med Classific ation: Hematolog ical Agents metformin 500 mg tablet 07-24 00:00: 00 03-26 23:59 :00 No [id number] 500 mg 2 TIMES DAILY 500 mg 2 TIMES DAILY (route: oral) Med Classific ation: Endocrine prazosin 1 mg capsule 07-24 00:00: 00 03-26 23:59 :00 No [id number] 3 capsule BEDTIME 3 capsule BEDTIME (route: oral) Med Classific ation: Cardiovas cular Therapy Agents Seroquel 25 mg tablet 07-24 00:00: 00 03-26 23:59 :00 No [id number] 0.5 tablet EVERY 4 HOURS 0.5 tablet EVERY 4 HOURS (route: oral) Med Classific ation: Central Nervous System Agents albuterol sulfate HFA 90 mcg/actuati on aerosol inhaler 07-24 00:00: 00 03-26 23:59 :00 No [id number] 1 puff 4 TIMES DAILY 1 puff 4 TIMES DAILY (route: inhalation ) Med Classific ation: Respirato ry Therapy Agents hydroxyzine HCl 25 mg tablet 07-24 00:00: 00 03-26 23:59 :00 No [id number] 50 mg 3 TIMES DAILY 50 mg 3 TIMES DAILY (route: oral) Med Classific ation: Central Nervous System Agents insulin lispro (U-100) 100 unit/mL subcutaneou s pen 07-24 00:00: 00 03-26 23:59 :00 No [id number] 10 unit 3 TIMES DAILY 10 unit 3 TIMES DAILY (route: subcutaneo us) Med Classific ation: Endocrine magnesium 400 mg (as magnesium oxide) tablet 07-24 00:00: 00 03-26 23:59 :00 No [id number] 1 tablet DAILY 1 tablet DAILY (route: oral) Med Classific ation: Electroly te Balance-N utritiona l Products Nicorette 2 mg gum 07-24 00:00: 00 03-26 23:59 :00 No [id number] 1 gum EVERY 2 HOURS 1 gum EVERY 2 HOURS (route: buccal) Med Classific ation: Chemical Dependenc y, Agents to Treat nystatin 100,000 unit/gram topical powder 07-24 00:00: 00 03-26 23:59 :00 No [id number] Per instruc tions DAILY Per instructio ns DAILY (route: topical) Med Classific ation: Dermatolo gical ipratropium 0.5 mg-albutero l 3 mg (2.5 mg base)/3 mL nebulizatio n soln 07-24 00:00: 00 03-26 23:59 :00 No [id number] 3 mL 2 TIMES DAILY 3 mL 2 TIMES DAILY (route: inhalation ) Med Classific ation: Respirato ry Therapy Agents sertraline 25 mg tablet 3- 00:00: 00 08-19 23:59 :00 No [id number] 1 tablet DAILY 1 tablet DAILY (route: oral) Med Classific ation: Central Nervous System Agents sertraline 50 mg tablet 4-07 00:00: 00 03-26 23:59 :00 No [id number] 1 tablet DAILY 1 tablet DAILY (route: oral) Med Classific ation: Central Nervous System Agents thiamine HCl (vitamin B1) 100 mg tablet 08-09 00:00: 00 08-24 23:59 :00 No [id number] 1 tablet 2 TIMES DAILY 1 tablet 2 TIMES DAILY (route: oral) Med Classific ation: Electroly te Balance-N utritiona l Products Lantus Solostar U-100 Insulin 100 unit/mL (3 mL) subcutaneou s pen 10-09 00:00: 00 10-23 23:59 :00 No [id number] 20 unit BEDTIME 20 unit BEDTIME (route: subcutaneo us) Med Classific ation: Endocrine thiamine HCl (vitamin B1) 100 mg tablet 4- 00:00: 00 03-26 23:59 :00 No [id number] 1 tablet 2 TIMES DAILY 1 tablet 2 TIMES DAILY (route: oral) Med Classific ation: Electroly te Balance-N utritiona l Products pyridoxine (vitamin B6) 50 mg tablet 4-29 00:00: 00 03-26 23:59 :00 No [id number] 1 tablet DAILY 1 tablet DAILY (route: oral) Med Classific ation: Electroly te Balance-N utritiona l Products O2 - OXYGEN 5-31 00:00: 00 03-26 23:59 :00 No [id number] 2 Liter O2 - CONTINUOUS 2 Liter O2 - CONTINUOUS (route: Oxygen) Alternate Route: O2 - NASAL CANNULA. Med Classific ation: Medical Oxygen Advair Diskus 250 mcg-50 mcg/dose powder for inhalation 10-23 00:00: 00 03-26 23:59 :00 No [id number] 1 inhalat ion 2 TIMES DAILY 1 inhalation 2 TIMES DAILY (route: inhalation ) Med Classific ation: Respirato ry Therapy Agents albuterol sulfate HFA 90 mcg/actuati on aerosol inhaler 10-23 00:00: 00 03-26 23:59 :00 No [id number] 1 puff 4 TIMES DAILY 1 puff 4 TIMES DAILY (route: inhalation ) Med Classific ation: Respirato ry Therapy Agents gabapentin 300 mg capsule 10-23 00:00: 00 03-26 23:59 :00 No [id number] 1 capsule 3 TIMES DAILY 1 capsule 3 TIMES DAILY (route: oral) Med Classific ation: Central Nervous System Agents Lantus Solostar U-100 Insulin 100 unit/mL (3 mL) subcutaneou s pen 10-23 00:00: 00 03-26 23:59 :00 No [id number] 28 unit BEDTIME 28 unit BEDTIME (route: subcutaneo us) Med Classific ation: Endocrine trazodone 50 mg tablet 10-23 00:00: 00 03-26 23:59 :00 No [id number] 1 tablet BEDTIME 1 tablet BEDTIME (route: oral) Med Classific ation: Central Nervous System Agents amoxicillin 500 mg capsule - 00:00: 00 01-09 23:59 :00 No [id number] 1 capsule 3 TIMES DAILY 1 capsule 3 TIMES DAILY (route: oral) Med Classific ation: Anti-Infe ctive Agents albuterol sulfate HFA 90 mcg/actuati on aerosol inhaler 2023-05-13 00:00: 00 07-25 23:59 :00 No [id number] 1 puff 4 TIMES DAILY 1 puff 4 TIMES DAILY (route: inhalation ) Med Classific ation: Respirato ry Therapy Agents amoxicillin 875 mg-potassiu m clavulanate 125 mg tablet 2023-05 00:00: 00 03-31 23:59 :00 No [id number] 1 tablet 2 TIMES DAILY 1 tablet 2 TIMES DAILY (route: oral) Med Classific ation: Anti-Infe ctive Agents Anoro Ellipta 62.5 mcg-25 mcg/actuati on powder for inhalation 2023-05 00:00: 00 06-26 23:59 :00 No [id number] 1 inhalat ion DAILY 1 inhalation DAILY (route: inhalation ) Med Classific ation: Respirato ry Therapy Agents aspirin 81 mg tablet,luh yed release 2023-05 00:00: 00 07-25 23:59 :00 No [id number] 1 tablet DAILY 1 tablet DAILY (route: oral) Med Classific ation: Hematolog ical Agents Farxiga 10 mg tablet 2023-05 00:00: 00 06-26 23:59 :00 No [id number] 1 tablet DAILY 1 tablet DAILY (route: oral) Med Classific ation: Endocrine folic acid 1 mg tablet 2023-05 00:00: 00 07-25 23:59 :00 No [id number] 1 tablet DAILY 1 tablet DAILY (route: oral) Med Classific ation: Electroly te Balance-N utritiona l Products furosemide 20 mg tablet 2023-05 00:00: 00 04-06 23:59 :00 No [id number] 1 tablet DAILY 1 tablet DAILY (route: oral) Med Classific ation: Cardiovas cular Therapy Agents gabapentin 300 mg capsule 2023-05 00:00: 00 05-25 23:59 :00 No [id number] 3 capsule 3 TIMES DAILY 3 capsule 3 TIMES DAILY (route: oral) Med Classific ation: Central Nervous System Agents insulin lispro (U-100) 100 unit/mL subcutaneou s pen 2023-05 00:00: 00 06-26 23:59 :00 No [id number] 10 unit 3 TIMES DAILY 10 unit 3 TIMES DAILY (route: subcutaneo us) Med Classific ation: Endocrine ipratropium 0.5 mg-albutero l 3 mg (2.5 mg base)/3 mL nebulizatio n soln 2023-05 00:00: 00 07-25 23:59 :00 No [id number] 3 mL 4 TIMES DAILY 3 mL 4 TIMES DAILY (route: inhalation ) Med Classific ation: Respirato ry Therapy Agents Lantus Solostar U-100 Insulin 100 unit/mL (3 mL) subcutaneou s pen 2023-05 00:00: 00 06-26 23:59 :00 No [id number] 10 unit BEDTIME 10 unit BEDTIME (route: subcutaneo us) Med Classific ation: Endocrine metformin 500 mg tablet 2023-05 00:00: 00 07-25 23:59 :00 No [id number] 1 tablet 2 TIMES DAILY 1 tablet 2 TIMES DAILY (route: oral) Med Classific ation: Endocrine omeprazole 40 mg capsule,del ayed release 2023-05 00:00: 00 07-25 23:59 :00 No [id number] 1 capsule DAILY 1 capsule DAILY (route: oral) Med Classific ation: Gastroint estinal Therapy Agents OXYGEN 2023-05 00:00: 00 07-25 23:59 :00 No [id number] 2 Liter O2 - CONTINUOUS 2 Liter O2 - CONTINUOUS (route: Oxygen) Med Classific ation: Medical Oxygen pyridoxine (vitamin B6) 50 mg tablet 2023-05 00:00: 00 07-25 23:59 :00 No [id number] 1 tablet DAILY 1 tablet DAILY (route: oral) Med Classific ation: Electroly te Balance-N utritiona l Products sertraline 50 mg tablet 2023-05 00:00: 00 05-27 23:59 :00 No [id number] 1 tablet DAILY 1 tablet DAILY (route: oral) Med Classific ation: Central Nervous System Agents thiamine HCl (vitamin B1) 100 mg tablet 2023-05 00:00: 00 07-25 23:59 :00 No [id number] 1 tablet 2 TIMES DAILY 1 tablet 2 TIMES DAILY (route: oral) Med Classific ation: Electroly te Balance-N utritiona l Products Lasix 40 mg tablet 2023-05 00:00: 00 06-09 23:59 :00 No [id number] 1 tablet DAILY 1 tablet DAILY (route: oral) Med Classific ation: Cardiovas cular Therapy Agents gabapentin 300 mg capsule 05-27 00:00: 00 07-25 23:59 :00 No [id number] 1 capsule 3 TIMES DAILY 1 capsule 3 TIMES DAILY (route: oral) Med Classific ation: Central Nervous System Agents mirtazapine 15 mg tablet 05-27 00:00: 00 07-25 23:59 :00 No [id number] 1 tablet BEDTIME 1 tablet BEDTIME (route: oral) Med Classific ation: Central Nervous System Agents prazosin 2 mg capsule 05-27 00:00: 00 06-09 23:59 :00 No [id number] 1 capsule BEDTIME 1 capsule BEDTIME (route: oral) Med Classific ation: Cardiovas cular Therapy Agents sertraline 100 mg tablet 05-27 00:00: 00 07-25 23:59 :00 No [id number] 1 tablet DAILY 1 tablet DAILY (route: oral) Med Classific ation: Central Nervous System Agents Lasix 20 mg tablet 06-09 00:00: 00 07-25 23:59 :00 No 20 mg DAILY 20 mg DAILY (route: oral) Med Classific ation: Cardiovas cular Therapy Agents levofloxaci n 500 mg tablet 06-09 00:00: 00 06-12 23:59 :00 No 500 mg DAILY 500 mg DAILY (route: oral) Med Classific ation: Anti-Infe ctive Agents Anoro Ellipta 62.5 mcg-25 mcg/actuati on powder for inhalation 06-26 00:00: 00 07-25 23:59 :00 No 1 inhalat ion DAILY 1 inhalation DAILY (route: inhalation ) Med Classific ation: Respirato ry Therapy Agents insulin lispro (U-100) 100 unit/mL subcutaneou s pen 06-26 00:00: 00 07-25 23:59 :00 No 5 unit 3 TIMES DAILY 5 unit 3 [facility] Med Classific ation: Endocrine Lantus U-100 Insulin 100 unit/mL subcutaneou s solution 2-11 00:00: 00 07-13 23:59 :00 No 16 unit BEDTIME 16 unit [facility] Med Classific ation: Endocrine metoprolol tartrate 25 mg tablet 2-11 00:00: 00 07-25 23:59 :00 No 0.5 tablet DAILY 0.5 tablet DAILY (route: oral) Med Classific ation: Cardiovas cular Therapy Agents prazosin 2 mg capsule 2-11 00:00: 00 07-25 23:59 :00 No 1 capsule BEDTIME 1 capsule BEDTIME (route: oral) Med Classific ation: Cardiovas cular Therapy Agents quetiapine 25 mg tablet 2- 00:00: 00 07-25 23:59 :00 No 0.5 tablet EVERY 4 HOURS 0.5 tablet EVERY 4 HOURS (route: oral) Med Classific ation: Central Nervous System Agents Topamax 25 mg tablet 2 00:00: 00 07-13 23:59 :00 No 1 tablet DAILY 1 tablet DAILY (route: oral) Med Classific ation: Central Nervous System Agents trazodone 50 mg tablet 2- 00:00: 00 07-25 23:59 :00 No 50 mg BEDTIME 50 mg BEDTIME (route: oral) Med Classific ation: Central Nervous System Agents Lantus Solostar U-100 Insulin 100 unit/mL (3 mL) subcutaneou s pen 07-13 00:00: 00 07-25 23:59 :00 No 25 unit BEDTIME 25 unit B[facility] ([facility] Med Classific ation: Endocrine Topamax 50 mg tablet 07-13 00:00: 00 07-25 23:59 :00 No 50 mg DAILY 50 mg DAILY (route: oral) Med Classific ation: Central Nervous System Agents albuterol sulfate HFA 90 mcg/actuati on aerosol inhaler 08-01 00:00: 00 Yes 1 puff 4 TIMES DAILY 1 puff 4 TIMES DAILY (route: inhalation ) Med Classific ation: Respirato ry Therapy Agents Anoro Ellipta 62.5 mcg-25 mcg/actuati on powder for inhalation 08-01 00:00: 00 Yes 1 inhalat ion DAILY 1 inhalation DAILY (route: inhalation ) Med Classific ation: Respirato ry Therapy Agents aspirin 81 mg tablet,luh yed release 08-01 00:00: 00 Yes 1 tablet DAILY 1 tablet DAILY (route: oral) Med Classific ation: Hematolog ical Agents docusate sodium 100 mg capsule 08-01 00:00: 00 Yes 1 capsule 2 TIMES DAILY 1 capsule 2 TIMES DAILY (route: oral) Med Classific ation: Gastroint estinal Therapy Agents ferrous sulfate 325 mg (65 mg iron) tablet 08-01 00:00: 00 Yes 1 tablet EVERY OTHER DAY 1 tablet EVERY OTHER DAY (route: oral) Med Classific ation: Electroly te Balance-N utritiona l Products folic acid 1 mg tablet 08-01 00:00: 00 Yes 1 tablet DAILY 1 tablet DAILY (route: oral) Med Classific ation: Electroly te Balance-N utritiona l Products furosemide 20 mg tablet 08-01 00:00: 00 Yes 1 tablet DAILY 1 tablet DAILY (route: oral) Med Classific ation: Cardiovas cular Therapy Agents gabapentin 300 mg capsule 08-01 00:00: 00 Yes 3 capsule 3 TIMES DAILY 3 capsule 3 TIMES DAILY (route: oral) Med Classific ation: Central Nervous System Agents insulin glargine (U-100) 100 unit/mL (3 mL) subcutaneou s pen 08-01 00:00: 00 Yes 25 unit BEDTIME 25 unit BEDTIME (route: subcutaneo us) Med Classific ation: Endocrine insulin lispro (U-100) 100 unit/mL subcutaneou s pen 08-01 00:00: 00 Yes 5 unit 3 TIMES DAILY 5 unit 3 TIMES DAILY (route: subcutaneo us) Med Classific ation: Endocrine ipratropium 0.5 mg-albutero l 3 mg (2.5 mg base)/3 mL nebulizatio n soln 08-01 00:00: 00 Yes 3 mL 4 TIMES DAILY 3 mL 4 TIMES DAILY (route: inhalation ) Med Classific ation: Respirato ry Therapy Agents magnesium 400 mg (as magnesium oxide) tablet 08-01 00:00: 00 Yes 1 tablet DAILY 1 tablet DAILY (route: oral) Med Classific ation: Electroly te Balance-N utritiona l Products metformin 500 mg tablet 08-01 00:00: 00 Yes 1 tablet 2 TIMES DAILY 1 tablet 2 TIMES DAILY (route: oral) Med Classific ation: Endocrine metoprolol succinate ER 25 mg tablet,exte nded release 24 hr 08-01 00:00: 00 Yes 0.5 tablet DAILY 0.5 tablet DAILY (route: oral) Med Classific ation: Cardiovas cular Therapy Agents mirtazapine 15 mg tablet 08-01 00:00: 00 Yes 1 tablet BEDTIME 1 tablet BEDTIME (route: oral) Med Classific ation: Central Nervous System Agents nicotine 21 mg/24 hr daily transdermal patch 08-01 00:00: 00 Yes 1 patch, transde rmal 24 hours DAILY 1 patch, transderma l 24 hours DAILY (route: transderma l) Med Classific ation: Chemical Dependenc y, Agents to Treat omeprazole 40 mg capsule,del ayed release 08-01 00:00: 00 Yes 1 capsule DAILY 1 capsule DAILY (route: oral) Med Classific ation: Gastroint estinal Therapy Agents prazosin 2 mg capsule 08-01 00:00: 00 Yes 1 capsule BEDTIME 1 capsule BEDTIME (route: oral) Med Classific ation: Cardiovas cular Therapy Agents pyridoxine (vitamin B6) 50 mg tablet 08-01 00:00: 00 Yes 1 tablet DAILY 1 tablet DAILY (route: oral) Med Classific ation: Electroly te Balance-N utritiona l Products quetiapine 25 mg tablet 08-01 00:00: 00 Yes 1 tablet EVERY 6 HOURS 1 tablet EVERY 6 HOURS (route: oral) Med Classific ation: Central Nervous System Agents sertraline 100 mg tablet 08-01 00:00: 00 Yes 1 tablet DAILY 1 tablet DAILY (route: oral) Med Classific ation: Central Nervous System Agents thiamine HCl (vitamin B1) 100 mg tablet 08-01 00:00: 00 Yes 1 tablet 2 TIMES DAILY 1 tablet 2 TIMES DAILY (route: oral) Med Classific ation: Electroly te Balance-N utritiona l Products topiramate 50 mg tablet 08-01 00:00: 00 Yes 1 tablet DAILY 1 tablet DAILY (route: oral) Med Classific ation: Central Nervous System Agents trazodone 50 mg tablet 08-01 00:00: 00 Yes 100 mg BEDTIME 100 mg BEDTIME (route: oral) Med Classific ation: Central Nervous System Agents oxygen gas for inhalation 08-01 00:00: 00 Yes 2 Liter O2 - CONTINUOUS 2 Liter O2 - CONTINUOUS (route: inhalation ) Med Classific ation: Medical Supplies and Durable Medical Equipment (DME) Vital Signs Vital Name Observation Time Observation Value Commen ts Temperature 2024-09-15 10:35:00.000 98.6 [degF] Temperature 2024-09-09 07:58:00.000 97.2 [degF] Temperature 2024-09-06 08:57:00.000 97.6 [degF] Temperature 2024-09-05 11:12:00.000 98.6 [degF] Temperature 2024-08-25 09:09:00.000 98.6 [degF] Temperature 2024 10:01:00.000 97.9 [degF] Temperature 2024-08-18 11:04:00.000 98.6 [degF] Temperature 2024-08-06 09:03:00.000 97.4 [degF] Temperature 2024-08-05 09:16:00.000 98 [degF] Temperature 2024-08-04 07:52:00.000 98.1 [degF] Temperature 2024-08-03 09:39:00.000 97.7 [degF] Temperature 2024-08-01 10:34:00.000 97.7 [degF] Height 2024-08-01 10:34:00.000 72 [in_us] Pulse 2024-09-15 10:35:00.000 60 /min Pulse 2024-09-09 07:58:00.000 94 /min Pulse 2024-09-06 08:57:00.000 96 /min Pulse 2024-09-05 11:12:00.000 80 /min Pulse 2024-08-25 09:09:00.000 70 /min Pulse 2024 10:02:00.000 70 /min Pulse 2024-08-18 11:04:00.000 72 /min Pulse 2024-08-06 09:03:00.000 96 /min Pulse 2024-08-03 09:39:00.000 78 /min Pulse 2024-08-01 10:34:00.000 86 /min O2 Saturation (%) 2024-09-15 10:41:00.000 95 % O2 Saturation (%) 2024-09-09 07:58:00.000 91 % O2 Saturation (%) 2024-09-06 08:57:00.000 94 % O2 Saturation (%) 2024-08-25 09:10:00.000 96 % O2 Saturation (%) 2024 09:58:00.000 92 % O2 Saturation (%) 2024-08-18 11:06:00.000 98 % O2 Saturation (%) 2024-08-05 09:16:00.000 97 % O2 Saturation (%) 2024-08-04 07:52:00.000 97 % O2 Saturation (%) 2024-08-01 10:34:00.000 97 % Respirations 2024-09-15 10:35:00.000 18 /min Respirations 2024-09-09 07:58:00.000 20 /min Respirations 2024-09-06 08:57:00.000 18 /min Respirations 2024-09-05 11:12:00.000 20 /min Respirations 2024-08-25 09:09:00.000 18 /min Respirations 2024-08-18 11:04:00.000 18 /min Respirations 2024-08-06 09:03:00.000 18 /min Respirations 2024-08-03 09:39:00.000 18 /min Respirations 2024-08-01 10:34:00.000 18 /min Weight (lbs) 2024-09-15 10:40:00.000 184 [lb_av] Weight (lbs) 2024-09-06 08:58:00.000 184.9 [lb_av] Weight (lbs) 2024-08-25 09:11:00.000 109 [lb_av] Weight (lbs) 2024-08-18 11:07:00.000 109 [lb_av] Weight (lbs) 2024-08-01 10:34:00.000 Systolic Blood Pressure 2024-09-15 10:35:00.000 136 mm [Hg] Systolic Blood Pressure 2024-09-09 07:58:00.000 150 mm [Hg] Systolic Blood Pressure 2024-09-06 08:57:00.000 140 mm [Hg] Systolic Blood Pressure 2024-09-05 11:12:00.000 138 mm [Hg] Systolic Blood Pressure 2024-08-25 09:09:00.000 140 mm [Hg] Systolic Blood Pressure 2024 09:58:00.000 118 mm [Hg] Systolic Blood Pressure 2024-08-18 11:04:00.000 140 mm [Hg] Systolic Blood Pressure 2024-08-06 09:03:00.000 118 mm [Hg] Systolic Blood Pressure 2024-08-03 09:39:00.000 110 mm [Hg] Systolic Blood Pressure 2024-08-01 10:34:00.000 106 mm [Hg] Diastolic Blood Pressure 2024-09-15 10:35:00.000 80 mm [Hg] Diastolic Blood Pressure 2024-09-09 07:58:00.000 78 mm [Hg] Diastolic Blood Pressure 2024-09-06 08:57:00.000 84 mm [Hg] Diastolic Blood Pressure 2024-09-05 11:12:00.000 72 mm [Hg] Diastolic Blood Pressure 2024-08-25 09:09:00.000 80 mm [Hg] Diastolic Blood Pressure 2024 09:58:00.000 70 mm [Hg] Diastolic Blood Pressure 2024-08-18 11:04:00.000 80 mm [Hg] Diastolic Blood Pressure 2024-08-06 09:03:00.000 78 mm [Hg] Diastolic Blood Pressure 2024-08-03 09:39:00.000 74 mm [Hg] Diastolic Blood Pressure 2024-08-01 10:34:00.000 62 mm [Hg] Plan of Treatment Planned Activity [...] GOAL FOR HOME HEALTH.] Future Scheduled Test PATIENT MA Y HAVE ONE SET OF EMERGENCY MEDICATION NOT TO BE PRE-POURED ANY SOONER THAN 24 HOURS BEFORE SEVERE INCLEMENT WEATHER OR EMERGENT EVENT AND FOLLOWING SKILLED NURSE EVALUATION OF PATIENT SAFETY. [code = PATIENT MAY HAVE ONE SET OF EMERGENCY MEDICATION NOT TO BE PRE-POURED ANY SOONER THAN 24 HOURS BEFORE SEVERE INCLEMENT WEATHER OR EMERGENT EVENT AND FOLLOWING SKILLED NURSE EVALUATION OF PATIENT SAFETY.] Future Scheduled Test SKILLED NU RSE TO O/A OF PATIENTS MENTAL/BEHAVIORAL STATUS, ASSESS VITAL SIGNS DAILY, ALLOW 2 PRNS FOR MEDICATION MANAGEMENT. [code = SKILLED NURSE TO O/A OF PATIENTS MENTAL/BEHAVIORAL STATUS, ASSESS VITAL SIGNS DAILY, ALLOW 2 PRNS FOR MEDICATION MANAGEMENT.] Future Scheduled Test MEDICATION S WILL BE HELD AND STORED IN LOCKBOX [code = MEDICATIONS WILL BE HELD AND STORED IN LOCKBOX] Future Scheduled Test SKILLED NU RSE FOR O/A OF GENERAL HEALTH STATUS OF PAIN, CARDIAC, RESPIRATORY, GASTROINTESTINAL, GENITOURINARY, SKIN, NEUROLOGIC, ENDOCRINE SYSTEMS TO IDENTIFY CHANGES ASSOCIATED WITH EXACERBATION FOR EARLY INTERVENTION OF COMPLICATIONS DAILY [code = SKILLED NURSE FOR O/A OF GENERAL HEALTH STATUS OF PAIN, CARDIAC, RESPIRATORY, GASTROINTESTINAL, GENITOURINARY, SKIN, NEUROLOGIC, ENDOCRINE SYSTEMS TO IDENTIFY CHANGES ASSOCIATED WITH EXACERBATION FOR EARLY INTERVENTION OF COMPLICATIONS DAILY ] Future Scheduled Test SKILLED NU RSE TO ADMINISTER MEDICATIONS DAILY AND PRE-POUR MEDICATIONS DAILY PER MEDICATION LIST. [code = SKILLED NURSE TO ADMINISTER MEDICATIONS DAILY AND PRE-POUR MEDICATIONS DAILY PER MEDICATION LIST.] Future Scheduled Test SKILLED NU RSE FOR O/A AND SKILLED TEACHING OF COPING SKILLS TO MANAGE ANXIETY AND MAINTAIN SAFETY. [code = SKILLED NURSE FOR O/A AND SKILLED TEACHING OF COPING SKILLS TO MANAGE ANXIETY AND MAINTAIN SAFETY.] Future Scheduled Test SKILLED NU RSE FOR [...] Scheduled Test SKILLED NU RSE TO PERFORM AND RECORD BLOOD SUGAR READING EACH VISIT , AND PRN FOR SIGNS AND SYMPTOMS OF HYPO/HYPERGLYCEMIA. [code = SKILLED NURSE TO PERFORM AND RECORD BLOOD SUGAR READING EACH VISIT , AND PRN FOR SIGNS AND SYMPTOMS OF HYPO/HYPERGLYCEMIA.] Future Scheduled Test SKILLED NU RSE FOR O/A, TEACHING AND SELF-MANAGEMENT RELATED TO HEART FAILURE. INSTRUCT PATIENT/CAREGIVER ON SIGNS AND SYMPTOMS OF EXACERBATION TO REPORT. WEIGHT TO BE OBTAINED DAILY AND WEIGHT GAIN OF 2 LBS OVERNIGHT OR 5 LBS IN 1 WEEK TO BE REPORTED TO PHYSICIAN. [code = SKILLED NURSE FOR O/A, TEACHING AND SELF-MANAGEMENT RELATED TO HEART FAILURE. INSTRUCT PATIENT/CAREGIVER ON SIGNS AND SYMPTOMS OF EXACERBATION TO REPORT. WEIGHT TO BE OBTAINED DAILY AND WEIGHT GAIN OF 2 LBS OVERNIGHT OR 5 LBS IN 1 WEEK TO BE REPORTED TO PHYSICIAN. ] Future Scheduled Test SKILLED NU RSE [...] CURRENT PAIN MANAGEMENT REGIMEN.] Future Scheduled Test PATIENT BUTLER S A [...] AWARENESS FOR SAFETY AND WILL NOTIFY CLINICAL LEAD ATG DEVELOPER AND PHYSICIAN/PROVIDER WITH ANY CHANGE IN CONDITION. [code = SKILLED NURSE WILL MAINTAIN SITUATIONAL AWARENESS FOR SAFETY AND WILL NOTIFY CLINICAL LEAD ATG DEVELOPER AND PHYSICIAN/PROVIDER WITH ANY CHANGE IN CONDITION.] Future Scheduled Test SKILLED NU RSE TO PROVIDE INSTRUCTION TO PATIENT/CAREGIVER RELATED TO DISCHARGE PLANNING. [code = SKILLED NURSE TO PROVIDE INSTRUCTION TO PATIENT/CAREGIVER RELATED TO DISCHARGE PLANNING. ] Future Scheduled Test OXYGEN VIA NASAL CANNULA) @ 2 LITERS CONTINUOUS. SKILLED NURSE FOR O/A AND SKILLED TEACHING OF SAFE OXYGEN USE IN THE HOME. [code = OXYGEN VIA NASAL CANNULA) @ 2 LITERS CONTINUOUS. SKILLED NURSE FOR O/A AND SKILLED TEACHING OF SAFE OXYGEN USE IN THE HOME.] Goal Patient Goal - NO MORE HOSPI TALIZATION Goal Provider Goal - A PLAN OF CARE WILL BE ESTABLISHED THAT MEETS PATIENT'S PRISON NEEDS AND INCLUDES PATIENT GOAL FOR HOME HEALTH. Goal Provider Goal - MEDICATION WILL BE AVAILABLE DURING INCLEMENT WEATHER OR EMERGENT EVENT THROUGHOUT CERTIFICATION PERIOD. Goal Provider Goal - ALTERED MENTAL/BEHAVIORAL STATUS WILL BE IDENTIFIED PROMPTLY AND INTERVENTION INITIATED QUICKLY TO MINIMIZE ASSOCIATED RISKS THROUGHOUT CERTIFICATION PERIOD. Goal Provider Goal - MEDICATION WILL BE STORED IN LOCKBOX FOR SAFETY. Goal Provider Goal - CHANGE IN GENERAL HEALTH STATUS WILL BE IDENTIFIED AND REPORTED TO PHYSICIAN FOR PROMPT INTERVENTION TO MINIMIZE ASSOCIATED RISKS THROUGHOUT CERTIFICATION PERIOD. Goal Provider Goal - PATIENT WILL COMPLY WITH MEDICATION WHEN SKILLED NURSE ADMINISTERS AND PRE-POURS MEDICATION THROUGHOUT CERTIFICATION PERIOD. Goal Provider Goal - PATIENT WILL BE ABLE TO PERFORM DAILY FUNCTIONS AND HAVE OPTIMAL IMPROVEMENT IN LEVEL OF ANXIETY THROUGHOUT CERTIFICATION PERIOD. Goal Provider Goal - [...] THE CERTIFICATION PERIOD. Goal Provider Goal - BLOOD SUGAR READING WILL BE OBTAINED ORDERED THROUGHOUT CERTIFICATION PERIOD. Goal Provider Goal - PATIENT/CAREGIVER WILL VERBALIZE/DEMONSTRATE KNOWLEDGE AND MANAGEMENT OF HEART FAILURE DISEASE PROCESS BY END OF EPISODE. Goal Provider Goal - PATIENT/CAREGIVER WILL VERBALIZE/DEMONSTRATE EFFECTIVE HOME SAFETY AND FALL PREVENTION STRATEGIES THROUGHOUT CERTIFICATION PERIOD. Goal Provider Goal - PATIENT/CAREGIVER WILL DEMONSTRATE UNDERSTANDING OF PHARMACOLOGIC AND NONPHARMACOLOGIC PAIN CONTROL MEASURES AND PATIENT WILL HAVE IMPROVEMENT IN PAIN INTERFERING WITH ACTIVITY EVIDENCED BY PAIN CONTROLLED AT LEVEL OF PAIN OR LESS BY END OF CERTIFICATION PERIOD. Goal Provider Goal - PATIENT WILL HAVE [...] Goal Provider Goal - PATIENT/CAREGIVER WILL VERBALIZE UNDERSTANDING OF DISCHARGE PLANNING INSTRUCTIONS BY DATE OF DISCHARGE. Goal Provider Goal - PATIENT/CAREGIVER WILL VERBALIZE/DEMONSTRATE UNDERSTANDING OF SAFE OXYGEN USE IN THE HOME THROUGHOUT THE EPISODE. Progress Notes Progress Notes <paragraph>[Visit Date: 2024 by RADHA TAYLOR RN]:</paragraph><paragraph>SNV TODAY 09/15/2024. PATIENT AOX3 AND FORGETFUL. PATIENTS APARTMENT CLEARED OF CIGARETTES AND NO ASHTRAY VISIBLE. OXYGEN CANNISTERS WERE NOT VISIBLE. PATIENT STATES THAT IS ONLY SMOKING WHEN NOT ON OXYGEN AND AWAY FROM OXYGEN MODULE. PATIENT INFORMED THAT [facility] DEPARTMENT INFORMED OF PATIENT SMOKING WHILE ONO2, WITH MULTIPLE O2 CANISTERS OF O2 IN CORNER BEHIND PATIENT CAUSING A SAFETY RISK. [facility] DEPART[facility] TO ACCOMPANY SN AT NEXT SNV TO DISCUSS SAFETY CONCERNS. CROSSCUTTER INFORMED.</paragraph> <paragraph>[Visit Date: 2024 by LISBET OMER RN]:</paragraph><paragraph>PT IS A 59 YEAR OLD FEMALE WITH MULTIPLE CO MORBIDITIES. I50.30 UNSPECIFIED DIASTOLIC (CONGESTIVE) HEART FAILUREEXACERBATION: 07/26/2024J96.11 CHRONIC RESPIRATORY FAILURE WITH HYPOXIAEXACERBATION: 07/31/2024J44.9 CHRONIC OBSTRUCTIVE PULMONARY DISEASE, UNSPECIFIEDEXACERBATION: 07/31/2024F41.8 OTHER SPECIFIED ANXIETY DISORDERSEXACERBATION: 07/31/2024F10.90 ALCOHOL USE, UNSPECIFIED, UNCOMPLICATEDEXACERBATION: 07/31/2024E11.9 TYPE 2 DIABETES MELLITUS WITHOUT COMPLICATIONSEXACERBATION: 07/31/2024F11.90 OPIOID USE, UNSPECIFIED, UNCOMPLICATEDEXACERBATION: 07/31/2024Z72.0 TOBACCO USEEXACERBATION: 07/31/2024K21.9 GASTRO-ESOPHAGEAL REFLUX DISEASE WITHOUT ESOPHAGITISEXACERBATION: 07/31/2024R30.0 DYSURIAEXACERBATION: 07/31/2024K76.0 FATTY (CHANGE OF) LIVER, NOT ELSEWHERE CLASSIFIEDEXACERBATION: 07/31/2024D50.9 IRON DEFICIENCY ANEMIA, UNSPECIFIEDEXACERBATION: 07/31/2024 PT LIVES IN A SECOND FLOOR WALK UP APARTMENT WITH HER SON WHO PROVIDES ASSIST WITH ADLS AND PROVIDES ALL IADLS. PT REQUIRES DAILY PRISON FOR MEDICATION ADMINISTRATION DUE TO HX OF NON COMPLIANCE AND OVERDOSE. PT IS INDEPENDENT WITH BLOOD SUGAR ASSESSMENT AND INSULIN ADMINISTRATION. PT WEARS OXYGEN 2L VIA NC NEEDED. PT HAS CONGESTED COUGH LIKELY DUE TO SMOKING. LUNG SOUNDS DIMINISHED THROUGHOUT. HEART SOUNDS STRONG AND REGULAR. POSITIVE BOWEL SOUNDS IN ALL QUADS. PT HAS EPISODES OF URINARY INCONTINENCE DUE TO URGE INCONTINENCE AND UNABLE TO QUICKLY GET TO THE BATHROOM. POSITIVE PEDAL PULSES BILATERAL WITH 2-3+ EDEMA. PT CONSUMES HIGH AMOUNTS OF SODIUM FROM PREPARED FOODS SHE DOES NOT COOK ANY LONGER. PT EDUCATED ON STRATEGIES TO LOWER SODIUM INTAKE. PT EDUCATED ON OXYGEN SAFETY. PT EDUCATED ON STRATEGIES TO MANAGE STRESS AND ANXIETY. PT TO SEE PCP TODAY.</paragraph> <paragraph>[Visit Date: 2024 by LISBET OMER RN]:</paragraph><paragraph>PT IS AOX3. PT STATES SHE WAS ABLE TO GET A GOOD NIGHTS SLEEP. PT VERBALIZED FEELINGS OF SADNESS RE NEPHEW. PT PLEASED THAT SHE WAS ABLE TO SPEAK WITH TALENT ASSISTANT.</paragraph> Encounters Start Date/Time End Date/Time Encounter Type Admission Type Attending [facility] Care Department Encounter ID Discharge Date Discharge Status Discharge Condition Discharge Reason Percent Goals Met 2024-08-01 00:00:00 2024-09-29 00:00:00 Outpatient LISBET GUILLORY [facility] [id number] 19.23
--- OUTSIDE RECORDS SUMMARY | 2024-09-17 17:25 | XMS_ITS | Clinical Summary ---
Author Organization [address] [facility] Address [address] [place] [address] Phone Care Team Providers Care Field Pipe Lines Supervisor Name Role Phone Amaya Martinez MD Primary Care Provider [phone] Allergies Active Allergy Reactions Criticality Noted Date Comments Hydrocodone-Acetaminophen 07/13/2011 Other Reaction(s): Hives/Urticaria Sumatriptan Succinate 06/09/2009 Worse headache Medications fluticasone-gabriel meterol (Advair Diskus) 250-50 mcg/dose diskus inhaler Inhale 1 Puff into the lungs 2 times daily. 0 Active albuterol HFA (PROAIR HFA ; PROVENTIL HFA ; VENTOLIN HFA) 90 mcg/actuation inhaler Inhale 2 Puffs into the lungs every 4 hours as needed for Wheezing or Shortness of Breath. 0 Active cetirizine (ZyrTEC) 10 mg tablet Take 1 tablet (10 mg total) by mouth 1 (one) time each day. 9 Active gabapentin (NEURONTIN) 800 mg tablet Take 1 Tab by mouth 3 times daily. 0 Active ipratropium-alb uteroL (DUONEB) 0.5-2.5 mg/3 mL nebulizer solution Inhale 3 mL into the lungs 4 times daily as needed (wheezing). 8 Active losartan (COZAAR) 50 mg tablet Take 0.5 tablets (25 mg total) by mouth 1 (one) time each day. 1 Active methadone (DOLOPHINE) 10 mg tablet 120 mg daily 9 Active omeprazole (PriLOSEC) [address] capsule TAKE 1 CAP BY MOUTH DAILY. PT NEEDS MED F/U APPT FOR FURTHER REFILLS Active Active Problems Problem Noted Date Diagnosed Date Essential hypertension 03/14/2018 Substance abuse in remission ([facility], [facility] V28) 09/27/2017 Overview (04/07/2024): Opioids/oxycodone (on methadone), cocaine, marijuana per [facility] 09/20/17. Benzos (pt brought a bottle of clonazepam although UTox was negative in hospital). As of 01/18/19 - methadone; not using any other drugs except tobacco Kidney stone 04/06/2011 Migraine 02/05/2009 Obesity, unspecified 12/18/2007 Venous insufficiency 12/18/2007 Overview (04/07/2024): Neg. U/S 2007 COPD (chronic obstructive pu lmonary disease) ([facility] V24, [facility] V28) 12/14/2007 Overview (04/07/2024): Dr. Obrien Hospitalized at [facility] 11/04-11/21/07 for COPD exacerbation Abnormal CXR 07/01/2006 Overview (04/07/2024): 2004--CT IMO update Diabetes mellitus, type 2 ([facility] V24, [facility] V28) 06/26/2006 Overview (04/07/2024): Last Assessment & Plan: [...] just unsure what to do Educational Resources [place] [employer] Diabetes Association (www.diabetes.org) Centers for Disease Control [...] drink = 0.6 oz pur e alcohol) Comments Unknown Sex and Gender Information Value Date Recorded Sex Assigned at Not on file Legal Sex Female 1:10 AM EST Gender Identity Not on file Sexual Orientation [...] Vaccines (1 of 2) 08/25/2015 Pneumococcal Vaccine: 50+ Years (2 of 2 - PCV) 10/13/2019 10/12/2018 Pneumococcal Vaccine: Pediatrics (0 to 5 Years) and At-Risk Patients (6 to 64 Years) (2 of 2 - PCV) 10/13/2019 10/12/2018 COVID-19 Vaccine ( season) 2024 Cholesterol Screening (Lipid Panel) 03/10/2024 10/12/2018 Colorectal Cancer Screening: Stool Based Tests (FOBT/FIT) 03/10/2024 Depression Screening 03/10/2024 Diabetes: Annual Urine Albumin-Creatinine Ratio (uACR) 03/10/2024 10/12/2018 Diabetes: Blood Sugar Control Test (HGBA1C) 03/10/2024 01/18/2019 HIV Screening 03/10/2024 Hypertension/CHF/CAD Annual BMP Blood Test 03/10/2024 Social Influencers of Health Screening 03/10/2024 Influenza Vaccine (Season Ended) 2025 01/27/2017, 02/13/2010, 02/12/2009, Additional history exists DTaP,Tdap,and Td Vaccines (3 - Td or Tdap) 10/12/2028 10/12/2018, 09/06/2008 RSV Immunization Adult Patients (1 - 1-dose 75+ series) 2040 Hepatitis C Screening Completed 03/09/2011 HIB Vaccines [...] patient's age to complete this topic Meningococcal B Vaccine Aged Out No l onger eligible based on patient's age to complete this topic RSV Immunization Patients Under 20 months Aged Out No longer eligible based on patient's age to complete this topic Varicella Vaccines Aged Out No longer eligible based on patient's age to complete this topic Procedures Procedure Name Priority Date/Time Associated Diagnosis Comments HEMOGLOBIN A1C Routine 01/18/2019 HM URINE ALBUMIN CREATININE RATIO Routine 10/12/2018 LIPID PANEL Routine 10/12/2018 HEPATITIS C SCREENING Routine 03/09/2011 from Last 3 Months or Most Recently Relevant to Health Maintenance Results * Hemoglobin A1c (01/18/2019) Hemoglobin A1C 5.6 <=6.5 % Blood Venous blood specimen / Unknown Historical Provider LAB BLOOD ORDERABLES Jocelyne l Result * Urine Albumin Creatinine Ratio (10/12/2018) HM Urine Albumin Creatinine Ratio ABSTRACTED us Historical Provider HEALTH MAINTENANCE Final Result * Lipid panel (10/12/2018) LDL/HDL Ratio 3 0 - 4 Triglycerides 149 0 - 150 mg/dL Cholesterol 154 0 - 200 mg/dL HDL 45 >=40 mg/dL LDL Cholesterol 80 0 - 100 mg/dL Blood Venous blood specimen / Unknown us Historical Provider LAB BLOOD ORDERABLES Jocelyne l Result * Hepatitis C Screening (03/09/2011) Pathologist [facility] Hepatitis C Screening ABSTRACTED us Historical Provider HEALTH MAINTENANCE Final Result from Last 3 Months or Most Recently Relevant to Health Maintenance Care Teams Field Pipe Lines Supervisor Relationship Specialty Start Date End Date Amaya Martinez MD [address] [place] [address] Dr [address]es [address] [facility] [place] [id number] PCP - General 02/15/24
--- OUTSIDE RECORDS SUMMARY | 2024-09-17 17:25 | XMS_ITS | Clinical Summary ---
Author Organization Unknown Care Team Providers Care Hold Worker Name Role Phone DONNA HERRERA, WALE Unavailable Unavailable [facility]IN[facility] LIAISON, MATTY Unavailable Unavailable AMINAH VALLEJO, VIVIANE Unavailable Unavailable NEGRA VALLEJO, LISBET Unavailable Unavailable Payers Payer Name Policy Type Policy Number Effective Date Expira tion Date [facility] [place] [id number] MEDICAID [facility] [id number] Problems Condition Name Condition Details Condition Category [...] 07-24 00:00: 00 03-26 23:59 :00 No [id number] 40 mg EVERY AM 40 mg EVERY AM (route: oral) Med Classific ation: Gastroint estinal Therapy Agents Advair Diskus 250 mcg-50 mcg/dose powder for inhalation 07-24 00:00: 00 07-24 23:59 :00 No [id number] 1 inhalat ion INTO LUNGS TWICE A DAY 1 inhalation INTO LUNGS TWICE A DAY (route: inhalation ) Med Classific ation: Respirato ry Therapy Agents lisinopril 5 mg tablet 07-24 00:00: 00 03-26 23:59 :00 No [id number] 5 mg EVERY DAY 5 mg EVERY DAY (route: oral) Med Classific ation: Cardiovas cular Therapy Agents Ventolin HFA 90 mcg/actuati on aerosol inhaler 07-24 00:00: 00 03-26 23:59 :00 No [id number] 2 puff INTO LUNGS EVERY 6 HOURS NEEDED FOR 90 DAYS 2 puff INTO LUNGS EVERY 6 HOURS NEEDED FOR 90 DAYS (route: inhalation ) Med Classific ation: Respirato ry Therapy Agents mirtazapine 30 mg tablet 07-24 00:00: 00 03-26 23:59 :00 No [id number] 30 mg DAILY AT BEDTIME 30 mg DAILY AT BEDTIME (route: oral) Med Classific ation: Central Nervous System Agents gabapentin 300 mg capsule 07-24 00:00: 00 10-23 23:59 :00 No [id number] 3 capsule 3 TIMES DAILY 3 capsule 3 TIMES DAILY (route: oral) Med Classific ation: Central Nervous System Agents Colace 100 mg capsule 07-24 00:00: 00 07-24 23:59 :00 No [id number] 100 mg 2 TIMES DAILY 100 mg 2 TIMES DAILY (route: oral) Med Classific ation: Gastroint estinal Therapy Agents folic acid 1 mg tablet 07-24 00:00: 00 03-26 23:59 :00 No [id number] 1 mg DAILY 1 mg DAILY (route: oral) Med Classific ation: Electroly te Balance-N utritiona l Products furosemide 20 mg tablet 07-24 00:00: 00 03-26 23:59 :00 No [id number] 20 mg DAILY 20 mg DAILY (route: oral) Med Classific ation: Cardiovas cular Therapy Agents Humalog Nain KwikPen (U-100) 100 unit/mL subcutaneou s half-unit pen 07-24 00:00: 00 07-24 23:59 :00 No [id number] 10 unit 3 TIMES DAILY 10 unit 3 TIMES DAILY (route: subcutaneo us) Med Classific ation: Endocrine Lantus Solostar U-100 Insulin 100 unit/mL (3 mL) subcutaneou s pen 2022-05 00:00: 00 09-11 23:59 :00 No [id number] 35 unit BEDTIME 35 unit BEDTIME (route: subcutaneo us) Med Classific ation: Endocrine Minipress 1 mg capsule 07-24 00:00: 00 10-23 23:59 :00 No [id number] 1 mg BEDTIME 1 mg BEDTIME (route: oral) Med Classific ation: Cardiovas cular Therapy Agents thiamine HCl (vitamin B1) 100 mg tablet 07-24 00:00: 00 09-11 23:59 :00 No [id number] 100 mg DAILY 100 mg DAILY (route: oral) Med Classific ation: Electroly te Balance-N utritiona l Products aspirin 81 mg tablet,luh yed release 07-24 00:00: 00 03-26 23:59 :00 No [id number] 81 mg DAILY 81 mg DAILY (route: oral) Med Classific ation: Hematolog ical Agents metformin 500 mg tablet 07-24 00:00: 00 03-26 23:59 :00 No [id number] 500 mg 2 TIMES DAILY 500 mg 2 TIMES DAILY (route: oral) Med Classific ation: Endocrine prazosin 1 mg capsule 07-24 00:00: 00 03-26 23:59 :00 No [id number] 3 capsule BEDTIME 3 capsule BEDTIME (route: oral) Med Classific ation: Cardiovas cular Therapy Agents Seroquel 25 mg tablet 07-24 00:00: 00 03-26 23:59 :00 No [id number] 0.5 tablet EVERY 4 HOURS 0.5 tablet EVERY 4 HOURS (route: oral) Med Classific ation: Central Nervous System Agents albuterol sulfate HFA 90 mcg/actuati on aerosol inhaler 07-24 00:00: 00 03-26 23:59 :00 No [id number] 1 puff 4 TIMES DAILY 1 puff 4 TIMES DAILY (route: inhalation ) Med Classific ation: Respirato ry Therapy Agents hydroxyzine HCl 25 mg tablet 07-24 00:00: 00 03-26 23:59 :00 No [id number] 50 mg 3 TIMES DAILY 50 mg 3 TIMES DAILY (route: oral) Med Classific ation: Central Nervous System Agents insulin lispro (U-100) 100 unit/mL subcutaneou s pen 07-24 00:00: 00 03-26 23:59 :00 No [id number] 10 unit 3 TIMES DAILY 10 unit 3 TIMES DAILY (route: subcutaneo us) Med Classific ation: Endocrine magnesium 400 mg (as magnesium oxide) tablet 07-24 00:00: 00 03-26 23:59 :00 No [id number] 1 tablet DAILY 1 tablet DAILY (route: oral) Med Classific ation: Electroly te Balance-N utritiona l Products Nicorette 2 mg gum 07-24 00:00: 00 03-26 23:59 :00 No [id number] 1 gum EVERY 2 HOURS 1 gum EVERY 2 HOURS (route: buccal) Med Classific ation: Chemical Dependenc y, Agents to Treat nystatin 100,000 unit/gram topical powder 07-24 00:00: 00 03-26 23:59 :00 No [id number] Per instruc tions DAILY Per instructio ns DAILY (route: topical) Med Classific ation: Dermatolo gical ipratropium 0.5 mg-albutero l 3 mg (2.5 mg base)/3 mL nebulizatio n soln 07-24 00:00: 00 03-26 23:59 :00 No [id number] 3 mL 2 TIMES DAILY 3 mL 2 TIMES DAILY (route: inhalation ) Med Classific ation: Respirato ry Therapy Agents sertraline 25 mg tablet 3- 00:00: 00 08-19 23:59 :00 No [id number] 1 tablet DAILY 1 tablet DAILY (route: oral) Med Classific ation: Central Nervous System Agents sertraline 50 mg tablet 4-07 00:00: 00 03-26 23:59 :00 No [id number] 1 tablet DAILY 1 tablet DAILY (route: oral) Med Classific ation: Central Nervous System Agents thiamine HCl (vitamin B1) 100 mg tablet 08-09 00:00: 00 08-24 23:59 :00 No [id number] 1 tablet 2 TIMES DAILY 1 tablet 2 TIMES DAILY (route: oral) Med Classific ation: Electroly te Balance-N utritiona l Products Lantus Solostar U-100 Insulin 100 unit/mL (3 mL) subcutaneou s pen 10-09 00:00: 00 10-23 23:59 :00 No [id number] 20 unit BEDTIME 20 unit BEDTIME (route: subcutaneo us) Med Classific ation: Endocrine thiamine HCl (vitamin B1) 100 mg tablet 4- 00:00: 00 03-26 23:59 :00 No [id number] 1 tablet 2 TIMES DAILY 1 tablet 2 TIMES DAILY (route: oral) Med Classific ation: Electroly te Balance-N utritiona l Products pyridoxine (vitamin B6) 50 mg tablet 4-29 00:00: 00 03-26 23:59 :00 No [id number] 1 tablet DAILY 1 tablet DAILY (route: oral) Med Classific ation: Electroly te Balance-N utritiona l Products O2 - OXYGEN 5-31 00:00: 00 03-26 23:59 :00 No [id number] 2 Liter O2 - CONTINUOUS 2 Liter O2 - CONTINUOUS (route: Oxygen) Alternate Route: O2 - NASAL CANNULA. Med Classific ation: Medical Oxygen Advair Diskus 250 mcg-50 mcg/dose powder for inhalation 10-23 00:00: 00 03-26 23:59 :00 No [id number] 1 inhalat ion 2 TIMES DAILY 1 inhalation 2 TIMES DAILY (route: inhalation ) Med Classific ation: Respirato ry Therapy Agents albuterol sulfate HFA 90 mcg/actuati on aerosol inhaler 10-23 00:00: 00 03-26 23:59 :00 No [id number] 1 puff 4 TIMES DAILY 1 puff 4 TIMES DAILY (route: inhalation ) Med Classific ation: Respirato ry Therapy Agents gabapentin 300 mg capsule 10-23 00:00: 00 03-26 23:59 :00 No [id number] 1 capsule 3 TIMES DAILY 1 capsule 3 TIMES DAILY (route: oral) Med Classific ation: Central Nervous System Agents Lantus Solostar U-100 Insulin 100 unit/mL (3 mL) subcutaneou s pen 10-23 00:00: 00 03-26 23:59 :00 No [id number] 28 unit BEDTIME 28 unit BEDTIME (route: subcutaneo us) Med Classific ation: Endocrine trazodone 50 mg tablet 10-23 00:00: 00 03-26 23:59 :00 No [id number] 1 tablet BEDTIME 1 tablet BEDTIME (route: oral) Med Classific ation: Central Nervous System Agents amoxicillin 500 mg capsule - 00:00: 00 01-09 23:59 :00 No [id number] 1 capsule 3 TIMES DAILY 1 capsule 3 TIMES DAILY (route: oral) Med Classific ation: Anti-Infe ctive Agents albuterol sulfate HFA 90 mcg/actuati on aerosol inhaler 2023-05-13 00:00: 00 07-25 23:59 :00 No [id number] 1 puff 4 TIMES DAILY 1 puff 4 TIMES DAILY (route: inhalation ) Med Classific ation: Respirato ry Therapy Agents amoxicillin 875 mg-potassiu m clavulanate 125 mg tablet 2023-05 00:00: 00 03-31 23:59 :00 No [id number] 1 tablet 2 TIMES DAILY 1 tablet 2 TIMES DAILY (route: oral) Med Classific ation: Anti-Infe ctive Agents Anoro Ellipta 62.5 mcg-25 mcg/actuati on powder for inhalation 2023-05 00:00: 00 06-26 23:59 :00 No [id number] 1 inhalat ion DAILY 1 inhalation DAILY (route: inhalation ) Med Classific ation: Respirato ry Therapy Agents aspirin 81 mg tablet,luh yed release 2023-05 00:00: 00 07-25 23:59 :00 No [id number] 1 tablet DAILY 1 tablet DAILY (route: oral) Med Classific ation: Hematolog ical Agents Farxiga 10 mg tablet 2023-05 00:00: 00 06-26 23:59 :00 No [id number] 1 tablet DAILY 1 tablet DAILY (route: oral) Med Classific ation: Endocrine folic acid 1 mg tablet 2023-05 00:00: 00 07-25 23:59 :00 No [id number] 1 tablet DAILY 1 tablet DAILY (route: oral) Med Classific ation: Electroly te Balance-N utritiona l Products furosemide 20 mg tablet 2023-05 00:00: 00 04-06 23:59 :00 No [id number] 1 tablet DAILY 1 tablet DAILY (route: oral) Med Classific ation: Cardiovas cular Therapy Agents gabapentin 300 mg capsule 2023-05 00:00: 00 05-25 23:59 :00 No [id number] 3 capsule 3 TIMES DAILY 3 capsule 3 TIMES DAILY (route: oral) Med Classific ation: Central Nervous System Agents insulin lispro (U-100) 100 unit/mL subcutaneou s pen 2023-05 00:00: 00 06-26 23:59 :00 No [id number] 10 unit 3 TIMES DAILY 10 unit 3 TIMES DAILY (route: subcutaneo us) Med Classific ation: Endocrine ipratropium 0.5 mg-albutero l 3 mg (2.5 mg base)/3 mL nebulizatio n soln 2023-05 00:00: 00 07-25 23:59 :00 No [id number] 3 mL 4 TIMES DAILY 3 mL 4 TIMES DAILY (route: inhalation ) Med Classific ation: Respirato ry Therapy Agents Lantus Solostar U-100 Insulin 100 unit/mL (3 mL) subcutaneou s pen 2023-05 00:00: 00 06-26 23:59 :00 No [id number] 10 unit BEDTIME 10 unit BEDTIME (route: subcutaneo us) Med Classific ation: Endocrine metformin 500 mg tablet 2023-05 00:00: 00 07-25 23:59 :00 No [id number] 1 tablet 2 TIMES DAILY 1 tablet 2 TIMES DAILY (route: oral) Med Classific ation: Endocrine omeprazole 40 mg capsule,del ayed release 2023-05 00:00: 00 07-25 23:59 :00 No [id number] 1 capsule DAILY 1 capsule DAILY (route: oral) Med Classific ation: Gastroint estinal Therapy Agents OXYGEN 2023-05 00:00: 00 07-25 23:59 :00 No [id number] 2 Liter O2 - CONTINUOUS 2 Liter O2 - CONTINUOUS (route: Oxygen) Med Classific ation: Medical Oxygen pyridoxine (vitamin B6) 50 mg tablet 2023-05 00:00: 00 07-25 23:59 :00 No [id number] 1 tablet DAILY 1 tablet DAILY (route: oral) Med Classific ation: Electroly te Balance-N utritiona l Products sertraline 50 mg tablet 2023-05 00:00: 00 05-27 23:59 :00 No [id number] 1 tablet DAILY 1 tablet DAILY (route: oral) Med Classific ation: Central Nervous System Agents thiamine HCl (vitamin B1) 100 mg tablet 2023-05 00:00: 00 07-25 23:59 :00 No [id number] 1 tablet 2 TIMES DAILY 1 tablet 2 TIMES DAILY (route: oral) Med Classific ation: Electroly te Balance-N utritiona l Products Lasix 40 mg tablet 2023-05 00:00: 00 06-09 23:59 :00 No [id number] 1 tablet DAILY 1 tablet DAILY (route: oral) Med Classific ation: Cardiovas cular Therapy Agents gabapentin 300 mg capsule 05-27 00:00: 00 07-25 23:59 :00 No [id number] 1 capsule 3 TIMES DAILY 1 capsule 3 TIMES DAILY (route: oral) Med Classific ation: Central Nervous System Agents mirtazapine 15 mg tablet 05-27 00:00: 00 07-25 23:59 :00 No [id number] 1 tablet BEDTIME 1 tablet BEDTIME (route: oral) Med Classific ation: Central Nervous System Agents prazosin 2 mg capsule 05-27 00:00: 00 06-09 23:59 :00 No [id number] 1 capsule BEDTIME 1 capsule BEDTIME (route: oral) Med Classific ation: Cardiovas cular Therapy Agents sertraline 100 mg tablet 05-27 00:00: 00 07-25 23:59 :00 No [id number] 1 tablet DAILY 1 tablet DAILY (route: [...] DAILY 5 unit 3 TIMES DAILY [facility] Med Classific ation: Endocrine Lantus U-100 Insulin 100 unit/mL subcutaneou s solution 2-11 00:00: 00 07-13 23:59 :00 No 16 unit BEDTIME [facility] Med Classific ation: Endocrine [...] 25 unit BEDTIME 25 unit [facility]TIME ([facility] Med Classific ation: Endocrine [...] AWARENESS FOR SAFETY AND WILL NOTIFY CLINICAL RAIL CAR MECHANIC AND PHYSICIAN/PROVIDER WITH ANY CHANGE IN CONDITION. [code = SKILLED NURSE WILL MAINTAIN SITUATIONAL AWARENESS FOR SAFETY AND WILL NOTIFY CLINICAL RAIL CAR MECHANIC AND PHYSICIAN/PROVIDER WITH ANY CHANGE IN CONDITION.] [...] CARE WILL BE ESTABLISHED THAT MEETS PATIENT'S ALF NEEDS AND INCLUDES PATIENT GOAL FOR HOME [...] AWAY FROM OXYGEN MODULE. PATIENT INFORMED THAT [facility] INFORMED OF PATIENT SMOKING WHILE ONO2, WITH MULTIPLE O2 CANISTERS OF O2 IN CORNER BEHIND PATIENT CAUSING A SAFETY RISK. [facility] TO ACCOMPANY SN AT NEXT SNV TO DISCUSS SAFETY CONCERNS. ASSISTANT SIGNAL MAINTAINER INFORMED.</paragraph> <paragraph>[Visit Date: 2024 by LISBET OMER [...] AND PROVIDES ALL IADLS. 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 Care Department Encounter ID Discharge Date Discharge Status Discharge Condition Discharge Reason Percent Goals Met 2024-08-01 00:00:00 2024-09-29 00:00:00 Outpatient LISBET GUILLORY [facility] [id number] 19.23
== END 2024-09-17 17:10 | disposition home or self-care (01) ==
LOC: HO.HMCH 16:00
PROVIDERS: PCP Internal Medicine; Visit Provider Internal Medicine
DX: J44.9 Chronic obstructive pulmonary disease, unspecified (principal); E11.65 Type 2 diabetes mellitus with hyperglycemia; F33.1 Major depressive disorder, recurrent, moderate; F19.10 Other psychoactive substance abuse, uncomplicated; E78.5 Hyperlipidemia, unspecified; I35.0 Nonrheumatic aortic (valve) stenosis; G47.33 Obstructive sleep apnea (adult) (pediatric); M25.561 Pain in right knee; Z12.31 Encounter for screening mammogram for malignant neoplasm of breast; M81.0 Age-related osteoporosis without current pathological fracture; Z72.0 Tobacco use

== ENCOUNTER → 2024-09-17 15:59 | Outpatient (BNVA) | payer OTHER, SELFPAY | PROVIDERS: PCP Internal Medicine; Visit Provider Internal Medicine | DX: J44.9 Chronic obstructive pulmonary disease, unspecified (principal); E11.65 Type 2 diabetes mellitus with hyperglycemia; E78.5 Hyperlipidemia, unspecified; F33.1 Major depressive disorder, recurrent, moderate; I35.0 Nonrheumatic aortic (valve) stenosis; F19.10 Other psychoactive substance abuse, uncomplicated; G47.33 Obstructive sleep apnea (adult) (pediatric); M25.561 Pain in right knee; M81.0 Age-related osteoporosis without current pathological fracture; Z72.0 Tobacco use; Z79.4 Long term (current) use of insulin; Z79.84 Long term (current) use of oral hypoglycemic drugs | CPT/HCPCS: 96127; 99212 ==

== ENCOUNTER → 2024-09-28 23:59 | Outpatient (BNV) | payer OTHER, SELFPAY | PROVIDERS: PCP Internal Medicine; Visit Provider Internal Medicine | DX: I50.30 Unspecified diastolic (congestive) heart failure (principal); J96.11 Chronic respiratory failure with hypoxia; J44.9 Chronic obstructive pulmonary disease, unspecified; F41.8 Other specified anxiety disorders | CPT/HCPCS: G0179 ==